=== PATIENT | male | born 1940 | race Caucasian/White ===

== ENCOUNTER 2017-03-25 17:21 | Inpatient (IN) | payer OTHER, MEDICARE ==
[~2017-03-25] VITALS: Ht 175.3 cm; Wt 82.0 kg
[~2017-03-25 17:21] MED LIST: ALLO100 PO; CALC667T PO; CARV12.5 PO; CHOL1CAP6 PO; LISI10 PO; SENS60TA PO; SIMV40 PO; TYLE3 PO
[2017-03-25 17:27] VITALS: BP 190/84; PULSE 86; RESP 18; TEMP 98.1; O2SAT 97
[2017-03-25] MEDS ORDERED: NAPR250T4 PO (17:47)
[2017-03-25] MEDS ORDERED: CARV25TA PO (17:47)
[2017-03-25] MEDS ORDERED: CINA30 PO (17:47)
[2017-03-25] MEDS ORDERED: ALLO100T PO (17:47)
[2017-03-25] MEDS ORDERED: SODIUM CHLORIDE 0.9% FLUSH 10 ML FLUSH IVF PRN (18:15)
[2017-03-25 18:29] LABS: AUTOMATED NEUTROPHIL # 4.7 TH/MM3 (1.8-7.7); BASOPHIL # 0.1 TH/MM3 (0-0.2); BASOPHIL % 0.8 % (0.0-2.0); EOSINOPHIL # 0.2 TH/MM3 (0-0.4); EOSINOPHIL % 2.6 % (0.0-4.0); HEMATOCRIT 31.5 % (39.0-51.0); HEMOGLOBIN 10.5 GM/DL (13.0-17.0); LYMPH % 11.5 % (9.0-44.0); LYMPHOCYTE # 0.7 TH/MM3 (1.0-4.8); MEAN CELL VOLUME 103.2 FL (80.0-100.0); MEAN CORPUSCULAR HEMOGLOBIN 34.5 PG (27.0-34.0); MEAN CORPUSCULAR HGB CONC 33.4 % (32.0-36.0); MEAN PLATELET VOLUME 10.6 FL (7.0-11.0); MONO % 12.4 % (0.0-8.0); MONOCYTE # 0.8 TH/MM3 (0-0.9); NEUT % 72.7 % (16.0-70.0); PLATELET COUNT 120 TH/MM3 (150-450); RED BLOOD COUNT 3.05 MIL/MM3 (4.50-5.90); RED CELL DISTRIBUTION WIDTH 14.5 % (11.6-17.2); WHITE BLOOD COUNT 6.5 TH/MM3 (4.0-11.0)
[2017-03-25 18:38] LABS: INTERNATIONAL NORMALIZED RATIO 1.3 RATIO; PROTHROMBIN TIME - PATIENT 12.9 SEC (9.8-11.6)
--- NOTE | 2017-03-25 18:43 | PD ---
HPI Chief Complaint: General Weakness Time Seen by Provider: 17:43 Travel History International Travel<30 days: No Contact w/Intl Traveler<30days: No Traveled to known affect area: No History of Present Illness HPI 76-year-old male patient presents emergency department for evaluation of weakness and swelling in his bilateral lower extremities 4 days. He is a dialysis patient that receives dialysis Wednesday, and Wednesday. Patient states he almost fell approximately 4 times today due to weakness in his legs. His son caught him he did not actually fall. Patient has pitting edema in his bilateral lower extremities 4 days. Patient denies any shortness of breath, cough, fevers, chills, malaise, chest pain. Patient denies any nausea, vomiting, diarrhea. Patient denies any injury or change in diet, fluid intake precipitating the bilateral edema and lower extremity weakness. PFSH Past Medical History Arthritis: Yes Heart Rhythm Problems: No Cancer: No Cardiovascular Problems: Yes High Cholesterol: Yes Chest Pain: No Congestive Heart Failure: No Diabetes: Yes (diet controlled) Patient Takes Glucophage: No Dialysis: Yes (t, th, sat) Endocrine: Yes Gout: Yes Genitourinary: Yes Hypertension: Yes Immune Disorder: No Implanted Vascular Access Dvce: Yes Kidney Stones: No Musculoskeletal: Yes Neurologic: No Psychiatric: No Reproductive: No Respiratory: Yes Renal Failure: Yes (d/t polycystic kidney disease) Thyroid Disease: No Tetanus Vaccination: < 5 Years Influenza Vaccination: Yes Past Surgical History Abdominal Surgery: No AICD: No Arteriovenous Shunt: Yes (AV FISTULA) Cardiac Surgery: No Ear Surgery: No Endocrine Surgery: No Eye Surgery: No Genitourinary Surgery: No Gynecologic Surgery: No Insulin Pump: No Joint Replacement: No Oral Surgery: No Pacemaker: No Thoracic Surgery: No Other Surgery: Yes (PILONIDIAL CYST, FISTULA FOR DIALYSIS L WRIST) Social History Alcohol Use: No Tobacco Use: No Substance Use: No Allergies-Medications (Allergen,Severity, Reaction): Coded Allergies: No Known Allergies (Verified Allergy, Unknown, 03/25/17) Reported Meds & Prescriptions Reported Meds & Active Scripts Active Reported Carvedilol 25 Mg Tab 25 Mg PO BID Allopurinol 100 Mg Tab 100 Mg PO DAILY Sensipar (Cinacalcet) 30 Mg Tab 30 Mg PO DAILY Naproxen 250 Mg Tab 250 Mg PO BID Review of Systems Except as stated in HPI: all other systems reviewed are Neg Physical Exam Narrative GENERAL: Well-nourished, well-developed 76-year-old male patient in no acute distress. Nontoxic appearing. SKIN: Focused skin assessment cool and pale. HEAD: Atraumatic. Normocephalic. EYES: Pupils equal and round. No scleral icterus. No injection or drainage. ENT: No nasal bleeding or discharge. Mucous membranes pink and moist. NECK: Trachea midline. No JVD. CARDIOVASCULAR: Regular rate and rhythm. Systolic murmur appreciated. RESPIRATORY: No accessory muscle use. Clear to auscultation. Breath sounds equal bilaterally. GASTROINTESTINAL: Abdomen soft, non-tender, nondistended. Hepatic and splenic margins not palpable. MUSCULOSKELETAL: No obvious deformities. No clubbing. No cyanosis. Pitting edema noted to bilateral lower extremities. Left leg +3 pitting edema. Right leg +2 pitting edema. Pedal pulses +2. NEUROLOGICAL: Awake and alert. No obvious cranial nerve deficits. Motor grossly within normal limits. Normal speech. PSYCHIATRIC: Appropriate mood and affect; insight and judgment normal. Data Data Last Documented VS Vital Signs Date Time Temp Pulse Resp B/P (MAP) Pulse Ox O2 Delivery O2 Flow Rate FiO2 03/25/17 17:35 80 18 96 Room Air 03/25/17 17:27 98.1 190/84 (119) Orders Orders Electrocardiogram (03/25/17 18:10) Complete Blood Count With Diff (03/25/17 18:10) Comprehensive Metabolic Panel (03/25/17 18:10) Magnesium (Mg) (03/25/17 18:10) Ckmb (Isoenzyme) Profile (03/25/17 18:10) Troponin I (03/25/17 18:10) Act Partial Throm Time (Ptt) (03/25/17 18:10) Prothrombin Time / Inr (Pt) (03/25/17 18:10) Urinalysis - C+S If Indicated (03/25/17 18:10) Chest, Single Ap (03/25/17 18:10) Ecg Monitoring (03/25/17 18:10) Iv Access Insert/Monitor (03/25/17 18:10) Oximetry (03/25/17 18:10) Sodium Chloride 0.9% Flush (Ns Flush) (03/25/17 18:15) Us Leg Venous Doppler Bilat (03/25/17 18:10) B-Type Natriuretic Peptide (03/25/17 19:26) Furosemide Inj (Lasix Inj) (03/25/17 22:15) Place In Observation (03/25/17 ) Vital Signs (Adult) Q4H (03/25/17 22:35) Activity Oob With Assistance (03/25/17 22:35) Diet Heart Healthy (03/26/17 Breakfast) Sodium Chloride 0.9% Flush (Ns Flush) (03/25/17 22:45) Sodium Chloride 0.9% Flush (Ns Flush) (03/26/17 09:00) Ondansetron Inj (Zofran Inj) (03/25/17 22:45) Comprehensive Metabolic Panel (03/26/17 06:00) Complete Blood Count With Diff (03/26/17 06:00) Pt Request For Service (03/25/17 22:35) Case Management Consult (03/25/17 22:35) Heparin Inj (Heparin Inj) (03/26/17 09:00) Acetaminophen (Tylenol) (03/25/17 22:45) Acetamin-Hydrocod 325-5 Mg ([place] 5-325 (03/25/17 22:45) Acetamin-Hydrocod 325-10 Mg ([place] 10-32 (03/25/17 22:45) Docusate Sodium-Senna (Danielle-Colace) (03/26/17 09:00) Magnesium Hydroxide Liq (Milk Of Magnesi (03/25/17 22:45) Sennosides (Senokot) (03/25/17 22:45) Bisacodyl Supp (Dulcolax Supp) (03/25/17 22:45) Lactulose Liq (Lactulose Liq) (03/25/17 22:45) Allopurinol (Zyloprim) (03/26/17 09:00) Carvedilol (Coreg) (03/26/17 09:00) Cinacalcet (Sensipar) (03/26/17 09:00) Consult Nephrology (03/25/17 ) Admit Order (Ed Use Only) (03/25/17 22:38) Labs Laboratory Tests Test 03/25/17 17:45 03/25/17 22:07 White Blood Count 6.5 TH/MM3 Red Blood Count 3.05 MIL/MM3 Hemoglobin 10.5 GM/DL Hematocrit 31.5 % Mean Corpuscular Volume 103.2 FL Mean Corpuscular Hemoglobin 34.5 PG Mean Corpuscular Hemoglobin Concent 33.4 % Red Cell Distribution Width 14.5 % Platelet Count 120 TH/MM3 Mean Platelet Volume 10.6 FL Neutrophils (%) (Auto) 72.7 % Lymphocytes (%) (Auto) 11.5 % Monocytes (%) (Auto) 12.4 % Eosinophils (%) (Auto) 2.6 % Basophils (%) (Auto) 0.8 % Neutrophils # (Auto) 4.7 TH/MM3 Lymphocytes # (Auto) 0.7 TH/MM3 Monocytes # (Auto) 0.8 TH/MM3 Eosinophils # (Auto) 0.2 TH/MM3 Basophils # (Auto) 0.1 TH/MM3 CBC Comment DIFF FINAL Differential Comment Prothrombin Time 12.9 SEC Prothromb Time International Ratio 1.3 RATIO Activated Partial Thromboplast Time 27.3 SEC Blood Urea Nitrogen 30 MG/DL Creatinine 6.10 MG/DL Random Glucose 98 MG/DL Total Protein 6.9 GM/DL Albumin 2.7 GM/DL Calcium Level 8.9 MG/DL Magnesium Level 2.1 MG/DL Alkaline Phosphatase 90 U/L Aspartate Amino Transf (AST/SGOT) 17 U/L Alanine Aminotransferase (ALT/SGPT) 14 U/L Total Bilirubin 0.9 MG/DL Sodium Level 140 MEQ/L Potassium Level 4.7 MEQ/L Chloride Level 106 MEQ/L Carbon Dioxide Level 28.1 MEQ/L Anion Gap 6 MEQ/L Estimat Glomerular Filtration Rate 9 ML/MIN Total Creatine Kinase 50 U/L Troponin I 0.04 NG/ML B-Type Natriuretic Peptide 1190 PG/ML Urine Color YELLOW Urine Turbidity HAZY Urine pH 8.5 Urine Specific [place] 1.009 Urine Protein 100 mg/dL Urine Glucose (UA) 150 mg/dL Urine Ketones NEG mg/dL Urine Occult Blood TRACE Urine Nitrite NEG Urine Bilirubin NEG Urine Urobilinogen LESS THAN 2.0 MG/DL Urine Leukocyte Esterase NEG Urine WBC 3 /hpf Urine Squamous Epithelial Cells <1 /hpf Urine Transitional Epithelial Cells <1 /hpf Urine Bacteria RARE /hpf Microscopic Urinalysis Comment CULT NOT INDICATED MDM Medical Decision Making Medical Screen Exam Complete: Yes Emergency Medical Condition: Yes Differential Diagnosis Differential diagnoses include but not limited to fluid overload, congestive heart failure, PVD, DVT Narrative Course Patient placed on monitor, IV obtained, blood work sent to the lab, CBC, CMP, magnesium, troponin, CK MP, PT/INR, UA, BMP ordered and pending. Bilateral lower extremity ultrasound ordered and pending. Chest x-ray ordered and pending. CBC shows chronic anemia, no acute abnormality. CMP shows no acute abnormality outside of hypoalbuminemia at 2.7 and elevated BNP at 1190. PT/INR shows mildly elevated PT at 12.9. Chest x-ray shows patchy bilateral lower lung infiltrate and possible left pleural effusion. Lateral lower extremity ultrasound is negative for any DVT. Patient is admitted to the hospital for observation of congestive heart failure, fluid overload and bilateral patchy pleural infiltrates. Dr. Pierre accepts admission. Diagnosis Primary Impression: CHF (congestive heart failure) Qualified Codes: I50.9 - Heart failure, unspecified Additional Impression: Pitting edema Admitting Information Admitting Physician Requests: Observation Kelli Figueroa Mar 25, 2017 18:42
[2017-03-25 18:54] LABS: ALT (GPT) 14 U/L (12-78)
[2017-03-25 18:58] LABS: ALBUMIN 2.7 GM/DL (3.4-5.0); ALKALINE PHOSPHATASE 90 U/L (45-117); AST (GOT) 17 U/L (15-37); BICARBONATE 28.1 MEQ/L (21.0-32.0); BLOOD UREA NITROGEN 30 MG/DL (7-18); CALCIUM 8.9 MG/DL (8.5-10.1); CHLORIDE 106 MEQ/L (98-107); GLOMERULAR FILTRATION RATE 9 ML/MIN (>89); GLUCOSE,RANDOM 98 MG/DL (74-106); MAGNESIUM 2.1 MG/DL (1.5-2.5); SODIUM (NA) 140 MEQ/L (136-145); TOTAL BILIRUBIN ADULT 0.9 MG/DL (0.2-1.0); TOTAL PROTEIN 6.9 GM/DL (6.4-8.2); TROPONIN I 0.04 NG/ML (0.02-0.05)
--- NOTE | 2017-03-25 18:58 | RADRPT ---
EXAM DATE/TIME: 03/25/2017 18:21 [facility] COMPARISON: No previous studies available for comparison. INDICATIONS : Bilateral leg swelling. MEDICAL HISTORY : Hypercholesterolemia. Hypertension. Arthritis. Hearing loss. Polycystic kidney disease. Dialysis. Gou t. Diabetes. SURGICAL HISTORY : Left AV fistula. Pilonidial cyst removal. ENCOUNTER: Initial ACUITY: 1 day PAIN SCORE: 0/10 LOCATION: Bilateral legs. TECHNIQUE: Venous ultrasound of the left and right leg was performed from the inguinal ligament to the proximal calf. Real-time, color Doppler and spectral tracing, compression and augmentation techniques were us ed. FINDINGS: RIGHT LEG: There is normal compressibility of the deep venous system from the inguinal region to the proximal ca lf. No echogenic clot is seen in the lumen of the common femoral, femoral, popliteal, and posterior tibial veins. There is a normal response of the venous system to proximal and distal augmentation an d respiration. LEFT LEG: There is normal compressibility of the deep venous system from the inguinal region to the proximal ca lf. No echogenic clot is seen in the lumen of the common femoral, femoral, popliteal, and posterior tibial veins. There is a normal response of the venous system to proximal and distal augmentation an d respiration. CONCLUSION: 1. Negative for deep venous thrombosis bilateral lower extremities. Dillan Leonard MD on March 25, 2017 at 18:55 Board Certified Radiologist. This report was verified electronically.
--- NOTE | 2017-03-25 19:43 | RADRPT ---
EXAM DATE/TIME: 03/25/2017 19:18 [facility] COMPARISON: CHEST SINGLE AP, April 03, 2014, 16:20. INDICATIONS : Syncope MEDICAL HISTORY : Hypercholesterolemia. Hypertension. Arthritis. Hearing loss. Polycystic kidney disease. Dialysis. Gou t. Diabetes Type 2. SURGICAL HISTORY : Left AV fistula. Pilonidial cyst removal. ENCOUNTER: Initial ACUITY: 4 - 6 days PAIN SCORE: 0/10 LOCATION: Bilateral chest FINDINGS: There are patchy partially consolidated infiltrates in the medial lower lungs bilaterally with loss o f delineation of the midportion of the medial left hemidiaphragm. Possible blunting of the left cost ophrenic angle. The heart is mildly enlarged and there is marked tortuosity descending thoracic aort a, stable from prior. The upper lungs are clear. No evidence of pneumothorax. CONCLUSION: Patchy bilateral lower lung infiltrates and possible left pleural effusion. Dillan Leonard MD on March 25, 2017 at 19:40 Board Certified Radiologist. This report was verified electronically.
[2017-03-25] MEDS ORDERED: FUROSEMIDE 20 MG/2 ML VIAL IV PUSH ONE (22:15)
[2017-03-25 22:19] LABS: BACTERIA, URINE RARE /hpf; BILIRUBIN, URINE NEG (NEG); BLOOD, URINE TRACE (NEG); GLUCOSE,URINE 150 mg/dL (NEG); KETONE, URINE NEG (NEG); NITRITE,URINE NEG (NEG); PH, URINE 8.5 (5.0-8.5); SQUAMOUS EPITHELIAL CELL URINE <1 /hpf (0-5); TRANSITIONAL EPI CELLS, URINE <1 /hpf; URINE COLOR YELLOW (YELLW/STRAW); URINE LEUKOCYTE ESTERASE NEG (NEG)
--- NOTE | 2017-03-25 22:37 | HHI.HP ---
[facility] Admission Diagnosis Diagnoses: (1) Recurrent falls Diagnosis: Principal (2) ESRD (end stage renal disease) on dialysis Diagnosis: Principal (3) Lower extremity edema Diagnosis: Principal (4) HTN (hypertension) Diagnosis: Principal Travel History International Travel<30 Days: No Contact w/Intl Traveler <30 Da: No Traveled to Known Affected Are: No History of Present Illness This is a 76-year-old male with a PMH of HTN, Diet Controlled DM, Hyperlipidemia and ESRD on HD / who presented to the ER secondary to lower extremity edema, weakness and recurrent falls x4-5 days. Per pt he's had progressive lower extremity swelling, states swelling is making him weak and legs "give out". Has had multiple falls however no injuries as Son has been able to catch him. Denies LOC or head trauma. Underwent dialysis today w/ no complications. Denies fever, chills, chest pain or sick contacts. On arrival, BP 190/84, HR 86, O2 sat 97% on RA, Afebrile. CBC essentially at baseline. Creatinine was 6.10, produces 7.11 on 12/22/14. BNP 1190. Troponin 0.04. INR 1.3. CXR with patchy bilateral lung infiltrates and possible left effusion. LE Doppler negative for DVT. S/p Lasix in ER. Review of Systems Except as stated in HPI: all other systems reviewed are Neg ROS: 14 point review of systems otherwise negative. Past Family Social History Past Medical History PMH: HTN, Diet Controlled DM, Hyperlipidemia and ESRD on HD / Past Surgical History PAST SURGICAL HISTORY: AV Fistula, Pilonidal Cyst Allergies: Coded Allergies: No Known Allergies (Verified Allergy, Unknown, 03/25/17) Family History PAST FAMILY HISTORY: Reviewed. No h/o DM or CAD Social History PAST SOCIAL HISTORY: Negative for alcohol, tobacco or drugs. Physical Exam Vital Signs Vital Signs Date Time Temp Pulse Resp B/P (MAP) Pulse Ox O2 Delivery O2 Flow Rate FiO2 03/25/17 17:35 80 18 96 Room Air 03/25/17 17:27 98.1 86 18 190/84 (922) 18 Physical Exam PE: GENERAL: Very pleasant elderly white male in no acute distress sitting in chair at bedside. HEENT: PERRLA, EOMI. No scleral icterus or conjunctival pallor. No lid lag or facial droop. CARDIOVASCULAR: Regular rate and rhythm. No obvious murmurs to auscultation. No chest tenderness to palpation. RESPIRATORY: No obvious rhonchi or wheezing. Clear to auscultation. Breath sounds equal bilaterally. GASTROINTESTINAL: Abdomen soft, non-tender, nondistended. BS normal. MUSCULOSKELETAL: Extremities without clubbing, cyanosis. +2 pitting edema bilaterally, left > right. No obvious deformities. NEUROLOGICAL: Awake, alert and oriented x4. No focal neurologic deficits. Moving both upper and lower extremities spontaneously. Laboratory Laboratory Tests Test 03/25/17 17:45 03/25/17 22:07 White Blood Count 6.5 Red Blood Count 3.05 Hemoglobin 10.5 Hematocrit 31.5 Mean Corpuscular Volume 103.2 Mean Corpuscular Hemoglobin 34.5 Mean Corpuscular Hemoglobin Concent 33.4 Red Cell Distribution Width 14.5 Platelet Count 120 Mean Platelet Volume 10.6 Neutrophils (%) (Auto) 72.7 Lymphocytes (%) (Auto) 11.5 Monocytes (%) (Auto) 12.4 Eosinophils (%) (Auto) 2.6 Basophils (%) (Auto) 0.8 Neutrophils # (Auto) 4.7 Lymphocytes # (Auto) 0.7 Monocytes # (Auto) 0.8 Eosinophils # (Auto) 0.2 Basophils # (Auto) 0.1 CBC Comment DIFF FINAL Differential Comment Prothrombin Time 12.9 Prothromb Time International Ratio 1.3 Activated Partial Thromboplast Time 27.3 Blood Urea Nitrogen 30 Creatinine 6.10 Random Glucose 98 Total Protein 6.9 Albumin 2.7 Calcium Level 8.9 Magnesium Level 2.1 Alkaline Phosphatase 90 Aspartate Amino Transf (AST/SGOT) 17 Alanine Aminotransferase (ALT/SGPT) 14 Total Bilirubin 0.9 Sodium Level 140 Potassium Level 4.7 Chloride Level 106 Carbon Dioxide Level 28.1 Anion Gap 6 Estimat Glomerular Filtration Rate 9 Total Creatine Kinase 50 Troponin I 0.04 B-Type Natriuretic Peptide 1190 Urine Color YELLOW Urine Turbidity HAZY Urine pH 8.5 Urine Specific [place] 1.009 Urine Protein 100 Urine Glucose (UA) 150 Urine Ketones NEG Urine Occult Blood TRACE Urine Nitrite NEG Urine Bilirubin NEG Urine Urobilinogen LESS THAN 2.0 Urine Leukocyte Esterase NEG Urine WBC 3 Urine Squamous Epithelial Cells <1 Urine Transitional Epithelial Cells <1 Urine Bacteria RARE Microscopic Urinalysis Comment CULT NOT INDICATED Result Diagram: 03/25/17174403/25/171744 Caprini VTE Risk Assessment Caprini VTE Risk Assessment: Mod/High Risk (score >= 2) Caprini Risk Assessment Model Point Value = 1 Point Value = 2 Point Value = 3 Point Value = 5 Age 41-60 Minor surgery BMI > 25 kg/m2 Swollen legs Varicose veins or History of unexplained or recurrent spontaneous Oral contraceptives or hormone replacement Sepsis (< 1 month) Serious lung disease, including pneumonia (< 1 month) Abnormal pulmonary function Acute myocardial infarction Congestive heart failure (< 1 month) History of inflammatory bowel disease Medical patient at bed rest Age 61-74 Arthroscopic surgery Major open surgery (> 45 min) Laparoscopic surgery (> 45 min) Malignancy Confined to bed (> 72 hours) Immobilizing plaster cast Central venous access Age >= 75 History of VTE Family history of VTE Factor V Leiden Prothrombin [id number] Lupus anticoagulant Anticardiolipin antibodies Elevated serum homocysteine Heparin-induced thrombocytopenia Other congenital or acquired thrombophilia Stroke (< 1 month) Elective arthroplasty Hip, pelvis, or leg fracture Acute spinal cord injury (< 1 month) Prophylaxis Regimen Total Risk Factor Score Risk Level Prophylaxis Regimen 0-1 Low Early ambulation 2 Moderate Order ONE of the following: *Sequential Compression Device (SCD) *Heparin 5000 units SQ BID 3-4 Higher Order ONE of the following medications: *Heparin 5000 units SQ TID *Enoxaparin/Lovenox 40 mg SQ daily (WT < 150 kg, CrCl > 30 mL/min) *Enoxaparin/Lovenox 30 mg SQ daily (WT < 150 kg, CrCl > 10-29 mL/min) *Enoxaparin/Lovenox 30 mg SQ BID (WT < 150 kg, CrCl > 30 mL/min) AND/OR *Sequential Compression Device (SCD) 5 or more Highest Order ONE of the following medications: *Heparin 5000 units SQ TID (Preferred with Epidurals) *Enoxaparin/Lovenox 40 mg SQ daily (WT < 150 kg, CrCl > 30 mL/min) *Enoxaparin/Lovenox 30 mg SQ daily (WT < 150 kg, CrCl > 10-29 mL/min) *Enoxaparin/Lovenox 30 mg SQ BID (WT < 150 kg, CrCl > 30 mL/min) AND *Sequential Compression Device (SCD) Assessment and Plan Problem List: (1) Recurrent falls ICD Code: R29.6 - Repeated falls (2) ESRD (end stage renal disease) on dialysis ICD Code: N18.6 - End stage renal disease; Z99.2 - Dependence on renal dialysis (3) Lower extremity edema ICD Code: R60.0 - Localized edema (4) HTN (hypertension) ICD Code: I10 - HTN (hypertension) Status: Acute Assessment and Plan A/P: 1. Recurrent Falls: reports multiple near falls after legs "give out" due to progressive edema, no LOC or head trauma, no injuries as Son able to catch him each time. PT for eval/tx. 2. ESRD on HD: T//Wed, HD on urs w/ no complications, +fluid overload on exam, will consult Nephrology for further eval 3. Lower Extremity Edema: progressive lower extremity edema x4-5 days, left > right, LE Doppler negative for DVT, images reviewed by me. BNP 1130. CXR w/ patchy infiltrate, likely small effusion, images reviewed by me. S/p Lasix in ER. Check Echo to eval for heart failure. Monitor I/O. HD for fluid removal as needed. 4. HTN: BP 190's on arrival, currently 170's. Monitor BP. Resume home medications. 5. DVT Prophylaxis: Heparin 6. Social work for d/c planning as needed. 7. Case discussed w/ ER physician at length. Elli Pierre MD Mar 25, 2017 22:37
[2017-03-25] MEDS ORDERED: SENNOSIDES 8.6 MG TAB PO PRN (22:45)
[2017-03-25] MEDS ORDERED: MAGNESIUM HYDROXIDE SUSP 30 ML CUP PO PRN (22:45)
[2017-03-25] MEDS ORDERED: BISACODYL 10 MG SUPP RECTAL PRN (22:45)
[2017-03-25] MEDS ORDERED: ACETAMINOPHEN 325 MG TAB PO PRN (22:45)
[2017-03-25] MEDS ORDERED: SODIUM CHLORIDE 0.9% FLUSH 10 ML FLUSH IV FLUSH PRN (22:45)
[2017-03-25] MEDS ORDERED: ACETAMINOPHEN/HYDROcodone 325 MG/5 MG TAB PO PRN (22:45)
[2017-03-25] MEDS ORDERED: LACTULOSE SYRUP 20 GM/30 ML CUP PO PRN (22:45)
[2017-03-25] MEDS ORDERED: ONDANSETRON HCL 4 MG/2 ML VIAL IVP PRN (22:45)
[2017-03-25 23:07] VITALS: BP 177/75
--- NOTE | 2017-03-25 23:38 | EKG ---
Date Performed: 03/25/2017 Time Performed: 18:47:37 PTAGE: 76 years EKG: Sinus rhythm WITH MARKED SINUS ARRHYTHMIA MARKED LEFT AXIS DEVIATION LEFT VENTRICULAR HYPERTROPHY AND ST-T CHANGE ABNORMAL ECG PREVIOUS TRACING : 12/22/2014 17.56 Compared to the previous tracing, ST/T wave changes in the high lateral which may be due to LVH, are new DOCTOR: Jeffrey Ortiz Interpretating Date/Time 03/25/2017 23:36:43
[2017-03-26] VITALS (11 sets, daily range): BP systolic 163–201; BP diastolic 72–93; PULSE 63–111; RESP 18–24; TEMP 97.9–98.7; O2SAT 81–99
[2017-03-26] MEDS ORDERED: METOPROLOL TARTRATE 25 MG TAB PO ONE (01:45)
[2017-03-26] MEDS ORDERED: NIFEdipine 30 MG SUSTAINED RELEASE TAB PO ONE (01:45)
[2017-03-26] MEDS ORDERED: RESP: ALBUTEROL 2.5 MG/IPRATROPIUM 0.5 MG NEB (PRN) NEB (01:45)
[2017-03-26 08:10] LABS: ALKALINE PHOSPHATASE 87 U/L (45-117); ALT (GPT) 14 U/L (12-78); AST (GOT) 14 U/L (15-37); BICARBONATE 26.2 MEQ/L (21.0-32.0); BLOOD UREA NITROGEN 67 MG/DL (7-18); CALCIUM 9.8 MG/DL (8.5-10.1); CHLORIDE 107 MEQ/L (98-107); CREATININE 6.87 MG/DL (0.60-1.30); GLOMERULAR FILTRATION RATE 8 ML/MIN (>89); GLUCOSE,RANDOM 78 MG/DL (74-106); SODIUM (NA) 140 MEQ/L (136-145); TOTAL BILIRUBIN ADULT 1.1 MG/DL (0.2-1.0); TOTAL PROTEIN 7.1 GM/DL (6.4-8.2)
--- NOTE | 2017-03-26 08:53 | HHI.PR ---
Subjective Remarks Follow up on patient with increased bilateral lower extremity edema. Patient seen and examined. He is awake and alert. He is upset stating he doesn't know why he is in the hospital. When asked why he came to the hospital he reports increased leg weakness and swelling. States he's had increased swelling for the past 4-5 days. He is on hemodialysis scheduled Wednesday states he is compliant with his dialysis treatments. He reports making a few ounces of urine a day on his own. He denies any complaints of chest pain. He does report some shortness of breath when laying flat. He denies any nausea, vomiting or abdominal pain. He reports diarrhea following HD treatments and has had 3 episodes this am. Denies any recent antibiotic use. He denies any fever or chills. States his leg swelling has improved since his admission. He is eager to go home because he is having a roof put on his house. Objective Vitals Vital Signs Date Time Temp Pulse Resp B/P (MAP) Pulse Ox O2 Delivery O2 Flow Rate FiO2 03/26/17 08:30 98.2 84 20 195/80 (118) 96 03/26/17 04:48 70 167/78 (107) 95 03/26/17 03:38 98.3 72 18 172/81 (111) 99 03/26/17 01:39 97 Nasal Cannula 2.00 03/26/17 01:38 111 24 81 03/26/17 01:13 75 185/86 (119) 03/26/17 00:28 98.3 74 21 201/93 (129) 95 03/26/17 00:20 03/25/17 23:07 177/75 (109) 03/25/17 17:35 80 18 96 Room Air 03/25/17 17:27 98.1 86 18 190/84 (119) 97 Result Diagram: 03/25/17 1745 03/26/17 0645 Imaging Last Impressions Lower Extremity Ultrasound 03/25/171809 Signed Impressions: Service Date/Time: March 18:21 - CONCLUSION: 1. Negative for deep venous thrombosis bilateral lower extremities. Dillan Leonard MD Chest X-Ray 03/25/171809 Signed Impressions: Service Date/Time: March 19:18 - CONCLUSION: Patchy bilateral lower lung infiltrates and possible left pleural effusion. Dillan Leonard MD Objective Remarks GENERAL: Well-nourished, well-developed patient in NAD. Awake and alert. Sitting up in bed on 2LNC, satting 96%. SKIN: Warm and dry. No rash. HEAD: Normocephalic. Atraumatic. EYES: EOMI. No scleral icterus. No injection or drainage. ENT: No nasal bleeding or discharge. Mucous membranes pink and moist. Ill fitting upper dentures, no lower dentures on. NECK: Trachea midline. CARDIOVASCULAR: Regular rate and rhythm. S1, S2 noted. (+)Murmur present. RESPIRATORY: Nonlabored. Clear to auscultation. Breath sounds equal bilaterally. GASTROINTESTINAL: Abdomen soft, non-tender, nondistended. Normoactive bowel sounds x4. MUSCULOSKELETAL: No obvious deformities. Extremities without clubbing or cyanosis. Trace to 1+ BLE edema. NEUROLOGICAL: Awake and alert. Able to move all extremities spontaneously. No focal neurologic finding appreciated. Normal speech. PSYCHIATRIC: Appropriate mood and affect; insight and judgment normal. Medications and IVs Current Medications Medications (Trade) Dose Ordered Sig/Jamal Route Start Time Stop Time Status Last Admin (NS Flush) 2 ml UNSCH PRN IV FLUSH 03/25/17 22:45 (NS Flush) 2 ml BID IV FLUSH 03/26/17 09:00 (Zofran Inj) 4 mg Q6H PRN IVP 03/25/17 22:45 (Heparin Inj) 5,000 units Q12H SQ 03/26/17 09:00 (Tylenol) 650 mg Q6H PRN PO 03/25/17 22:45 ([place] 5-325 Mg) 1 tab Q4H PRN PO 03/25/17 22:45 ([place] 10-325 Mg) 1 tab Q4H PRN PO 03/25/17 22:45 (Danielle-Colace) 1 tab BID PO 03/26/17 09:00 (Milk Of Magnesia Liq) 30 ml Q12H PRN PO 03/25/17 22:45 (Senokot) 17.2 mg Q12H PRN PO 03/25/17 22:45 (Dulcolax Supp) 10 mg DAILY PRN RECTAL 03/25/17 22:45 (Lactulose Liq) 30 ml DAILY PRN PO 03/25/17 22:45 (Zyloprim) 100 mg DAILY PO 03/26/17 09:00 (Coreg) 25 mg BID PO 03/26/17 09:00 (Sensipar) 30 mg DAILY PO 03/26/17 09:00 (Duoneb Neb) 1 ampule Q4HR NEB PRN NEB 03/26/17 01:45 A/P Problem List: (1) Recurrent falls ICD Code: R29.6 - Repeated falls (2) ESRD (end stage renal disease) on dialysis ICD Code: N18.6 - End stage renal disease; Z99.2 - Dependence on renal dialysis (3) Lower extremity edema ICD Code: R60.0 - Localized edema (4) HTN (hypertension) ICD Code: I10 - HTN (hypertension) Status: Acute Assessment and Plan 1. Recurrent Falls: reports multiple near falls after legs "give out" due to progressive edema, no LOC or head trauma, no injuries as son able to catch him each time. PT for eval/tx. 2. ESRD on HD: T//Sat, HD on urs w/ no complications, +fluid overload on exam, improving. Cr and K level trending up. Phos level ordered. Consult Nephrology for further eval, appreciate recommendations. 3. Lower Extremity Edema: progressive lower extremity edema x4-5 days, left > right, LE Doppler negative for DVT. BNP 1130. CXR w/ patchy infiltrate, likely small effusion, images reviewed by me. S/p Lasix in ER. Check Echo to eval for heart failure. Monitor I/O. HD for fluid removal as needed. Edema improved today. 4. HTN: BP 190's on arrival, currently 170's. Monitor BP. Continue on Coreg 25mg BID. BP 195/80. Start on Hydralazine 10mg TID. 5. Anemia: Suspect anemia of chronic disease. Chronic, stable. Continue to monitor. 6. Macrocytosis: Obtain B12 and folate level. 7. DVT Prophylaxis: Heparin 8. Social work for d/c planning as needed. Discussed with patient, nursing staff and Ene Estes Mar 26, 2017 08:53
[2017-03-26] MEDS: SODIUM CHLORIDE 0.9% FLUSH 10 ML FLUSH IV FLUSH SCH ×2 (09:00→22:37)
[2017-03-26] MEDS ORDERED: LOPERAMIDE HCL SOLN 2 MG/10 ML UDC PO ONE (09:00)
[2017-03-26] MEDS: DOCUSATE SODIUM 50 MG/SENNA 8.6 MG TAB PO SCH ×2 (09:00→22:37)
[2017-03-26] MEDS: CINACALCET HYDROCHLORIDE 30 MG TAB PO SCH (09:12)
[2017-03-26] MEDS: HEPARIN SODIUM - SQ 10,000 UNITS/ML VIAL SQ SCH ×2 (09:12→22:37)
[2017-03-26] MEDS: ALLOPURINOL 100 MG TAB PO SCH (09:12)
[2017-03-26] MEDS: CARVEDILOL 12.5 MG TAB PO SCH ×2 (09:12→22:37)
[2017-03-26 12:09] LABS: MAGNESIUM 2.4 MG/DL (1.5-2.5); PHOSPHORUS 3.2 MG/DL (2.5-4.9)
[2017-03-26 12:10] LABS: AUTOMATED NEUTROPHIL # 3.5 TH/MM3 (1.8-7.7); BASOPHIL % 0.6 % (0.0-2.0); EOSINOPHIL # 0.1 TH/MM3 (0-0.4); EOSINOPHIL % 2.1 % (0.0-4.0); HEMATOCRIT 28.1 % (39.0-51.0); HEMOGLOBIN 9.6 GM/DL (13.0-17.0); LYMPH % 17.9 % (9.0-44.0); LYMPHOCYTE # 0.9 TH/MM3 (1.0-4.8); MEAN CELL VOLUME 102.9 FL (80.0-100.0); MONO % 10.5 % (0.0-8.0); MONOCYTE # 0.5 TH/MM3 (0-0.9); NEUT % 68.9 % (16.0-70.0); PLATELET COUNT 118 TH/MM3 (150-450); RED BLOOD COUNT 2.74 MIL/MM3 (4.50-5.90); RED CELL DISTRIBUTION WIDTH 14.3 % (11.6-17.2); WHITE BLOOD COUNT 5.1 TH/MM3 (4.0-11.0)
[2017-03-26] MEDS ORDERED: SODIUM CHLOR 0.9% 1000 ML INJ 1,000 ML IV PRN (13:13)
[2017-03-26] MEDS ORDERED: SODIUM CHLOR 0.9% 1000 ML INJ 1,000 ML OTHER PRN ×2 (13:13)
[2017-03-26] MEDS ORDERED: GELATIN 12 MM/7 MM FOAM TOP PRN (13:15)
[2017-03-26] MEDS ORDERED: GENTAMICIN SULFATE (DIALYSIS USE ONLY) 20 MG/2 ML VIAL OTHER PRN (13:15)
[2017-03-26] MEDS ORDERED: ACETAMINOPHEN 325 MG TAB PO PRN (13:15)
[2017-03-26] MEDS ORDERED: HEPARIN SODIUM - IV 10,000 UNITS/10 ML VIAL PRN (13:15)
[2017-03-26] MEDS ORDERED: HEPARIN SODIUM - IV 10,000 UNITS/10 ML VIAL IV FLUSH PRN (13:15)
[2017-03-26] MEDS ORDERED: NITROGLYCERIN 0.4 MG SL 25 TABS/BTL SL PRN (13:15)
[2017-03-26] MEDS ORDERED: ONDANSETRON HCL 4 MG/2 ML VIAL IV PUSH PRN (13:15)
[2017-03-26] MEDS ORDERED: SODIUM CHLORIDE 0.9% FLUSH 10 ML FLUSH IV FLUSH PRN (13:15)
[2017-03-26] MEDS ORDERED: diphenhydrAMINE HCL 25 MG CAP PO PRN (13:15)
[2017-03-26] MEDS ORDERED: MANNITOL 12.5 GM/50 ML VIAL IV PRN (13:15)
[2017-03-26] MEDS ORDERED: cloNIDine HCL 0.1 MG TAB PO PRN (13:15)
[2017-03-26 15:09] LABS: FOLATE 12.4 NG/ML (3.1-17.5)
--- NOTE | 2017-03-26 15:28 | ECHRPT ---
Indication: heart failure CONCLUSIONS Normal left ventricular size. Normal LV systolic function (EF 55%). [id number] mitral valve regurgitation. Severe aortic valve stenosis. Aortic valve area is 0.4 cm. AV mean gradient 56 mmHg. There is mild tricuspid valve regurgitation. BP: / HR: Rhythm: MEASUREMENTS (Male / Female) Normal Values Technical Quality:Fair 2D ECHO LV Diastolic Diameter PLAX 3.9 cm 4.2 - 5.9 / 3.9 - 5.3 cm LV Systolic Diameter PLAX 3.3 cm IVS Diastolic Thickness 2.4 cm 0.6 - 1.0 / 0.6 - 0.9 cm LVPW Diastolic Thickness 1.1 cm 0.6 - 1.0 / 0.6 - 0.9 cm LV Relative Wall Thickness 0.9 RV Internal Dim ED PLAX 3.1 cm M-MODE Aortic Root Diameter MM 3.3 cm LA Systolic Diameter MM 3.4 cm LA Ao Ratio MM 1.0 DOPPLER AV Peak Velocity 509.0 cm/s AV Peak Gradient 103.6 mmHg AV Mean Gradient 56.0 mmHg AV Velocity Time Integral 116.0 cm LVOT Peak Velocity 103.0 cm/s LVOT Peak Gradient 4.2 mmHg LVOT Velocity Time Integral 23.8 cm MV Peak Velocity 161.0 cm/s MV Peak Gradient 10.4 mmHg MV Mean Velocity 76.1 cm/s MV Mean Gradient 3.0 mmHg MV Area PHT 2.3 cm FINDINGS LEFT VENTRICLE Normal left ventricular size. The left ventricular systolic function is normal (EF 55%). RIGHT VENTRICLE Normal right ventricular size and systolic function. LEFT ATRIUM The left atrial size is normal. RIGHT ATRIUM The right atrial size is normal. ATRIAL SEPTUM Normal atrial septal thickness without atrial level shunting by limited color doppler interrogation. AORTA The aortic root and proximal ascending aorta are normal in size on limited imaging. MITRAL VALVE [id number] mitral valve regurgitation. The mitral valve area by Pressure Halftime Method is 2.3__ cm. AORTIC VALVE Severe aortic valve stenosis. Aortic valve area is .4__ cm. LVOT 2.2 AV mean 56 mmhg V Max 509 TRICUSPID VALVE Structurally normal tricuspid valve. There is mild tricuspid valve regurgitation. PULMONARY VALVE The pulmonary valve is not well visualized. VESSELS The inferior vena cava is normal in size. PERICARDIUM No pericardial effusion. Lakeisha Capellan MD, FACC (Electronically Signed) Final Date:26 March 2017 15:27
[2017-03-26] MEDS: hydrALAZINE HCL 10 MG TAB PO SCH ×2 (16:09→22:37)
--- NOTE | 2017-03-26 17:10 | MB ---
cc: EUNICE RODRIGEZ MD DATE OF CONSULTATION 03/26/17 REASON FOR CONSULTATION End-stage renal disease on hemodialysis. HISTORY OF PRESENT ILLNESS This is a 76-year-old male with past medical history of hypertension, hyperlipidemia, diabetes mellitus controlled on diet, history of end-stage renal disease on hemodialysis three times per week and chronic anemia who came to the hospital with complaint of swelling and weakness in the leg. I was called to see the patient for the management of dialysis. The patient has been on hemodialysis Wednesday, and Wednesday. He had dialysis done yesterday and he missed this week on Wednesday. The patient has increasing swelling of his legs and his blood pressure was on the lower side during dialysis and we have been trying to get more fluid out. Also he does cramp during dialysis which limits the amount of fluid which can be removed. He noticed more weakness in the leg for the last week to 10 days and has been falling at home. The patient lives with his son. He does not have any dizziness but he has been falling just because according to patient the leg is giving out, but he feels like he is doing much better now and he wants to go home. He denies any history of loss of consciousness and there is no apparent injury to his legs. According to him, the swelling is better than what it was. There is no shortness of breath. No nausea, vomiting. He is currently sitting in the chair in room air. PAST MEDICAL HISTORY 1. Hypertension, 2. Diabetes mellitus controlled on diet, 3. Hyperlipidemia, 4. Chronic anemia, 5. End-stage renal disease on hemodialysis. PAST SURGICAL HISTORY 1. AV fistula surgery, 2. Pilonidal cyst removal. REVIEW OF SYSTEMS The patient has generalized weakness, feeling tired. Denies any nausea or vomiting. No shortness of breath or chest pain. No abdominal pain. No history of diarrhea. He has this weakness in the leg which has been gradually getting worse for the last 7-10 days and has increased swelling of the legs. SOCIAL HISTORY The patient lives with his son. He has no history of smoking or alcoholism. FAMILY HISTORY Noncontributory. ALLERGIES NO KNOWN DRUG ALLERGIES. MEDICATIONS Currently 1. Carvedilol 25 mg b.i.d. 2. Allopurinol 100 mg once a day. 3. Sensipar 30 mg once a day 4. Danielle-Colace 1 tablet b.i.d. 5. Hydralazine 10 mg q. 8-hour. 6. Heparin 5000 units q.12 h. 7. Zofran as needed. 8. Tylenol as needed. 9. Burns as needed PHYSICAL EXAMINATION GENERAL: The patient is awake, alert and sitting in the chair not in acute distress. VITAL SIGNS: Last blood pressure 185-75 temperature 98.2, oxygen saturation 96-97% now on room air. HEENT: Pupils are mid constricted. Nonicteric sclerae, conjunctivae pale. NECK: Supple. JVD is not elevated. LUNGS: The patient has bilateral good air entry with occasional wheezing. HEART: S1, S2, regular rhythm. ABDOMEN: Distended, soft lax. There is no tenderness. EXTREMITIES: Bilateral 2+ edema. LABORATORY DATA WBC count is 5.1, hemoglobin 9.6, platelet count 118. Sodium 140. Potassium 5.1, chloride 107, bicarb 26.2, BUN 67, creatinine 6.8, phosphorus is 3.2. Calcium 9.8. Magnesium 2.4, AST is 14, ALT is 14, total protein 7.1 with Albumin of 3.0, INR is 1.3. Urinalysis showing protein of 100. IMAGING STUDIES The patient had chest x-ray done which shows that he has bilateral lower infiltrate, possible left pleural effusion. Ultrasound of the lower extremities done shows no deep vein thrombosis. ASSESSMENT/PLAN 1. End-stage renal disease on hemodialysis. 2. Swelling and weakness of the leg. 3. Hypoalbuminemia. 4. Hypertension 5. Anemia. 6. History of hyperlipidemia. The patient has weakness in the leg and also there is some swelling. The swelling is mainly a combination of low albumin and also being on dialysis. He needs to be compliant with his fluid intake and salt intake and we can try to remove more fluid during dialysis to help with the swelling. The patient did walk some today and he feels like he can go home, but I discussed with him and told him that he would feel better if he would go to a rehab for sometime. Blood pressure is on the higher side and he is on Carvedilol and hydralazine were started. I will follow the blood pressure as an outpatient and adjust hydralazine as needed. Thank you for the consultation. I will follow the patient while he is in the hospital. MD KELI Copeland/ /12:56 PM /4:36 PM
[2017-03-27 04:28] VITALS: BP 130/60; PULSE 70; RESP 18; TEMP 98.4; O2SAT 98
[2017-03-27] MEDS: hydrALAZINE HCL 10 MG TAB PO SCH ×3 (05:47→21:36)
[2017-03-27] MEDS: ALBUMIN 25% INJ 100 ML IV PRN ×2 (08:22→08:43)
[2017-03-27 08:41] LABS: AUTOMATED NEUTROPHIL # 3.6 TH/MM3 (1.8-7.7); BASOPHIL % 0.7 % (0.0-2.0); EOSINOPHIL # 0.2 TH/MM3 (0-0.4); EOSINOPHIL % 3.2 % (0.0-4.0); HEMATOCRIT 29.3 % (39.0-51.0); HEMOGLOBIN 9.6 GM/DL (13.0-17.0); LYMPH % 15.1 % (9.0-44.0); LYMPHOCYTE # 0.7 TH/MM3 (1.0-4.8); MEAN CORPUSCULAR HEMOGLOBIN 33.4 PG (27.0-34.0); MEAN CORPUSCULAR HGB CONC 32.8 % (32.0-36.0); MEAN PLATELET VOLUME 10.5 FL (7.0-11.0); MONO % 7.3 % (0.0-8.0); MONOCYTE # 0.4 TH/MM3 (0-0.9); NEUT % 73.7 % (16.0-70.0); PLATELET COUNT 113 TH/MM3 (150-450); RED BLOOD COUNT 2.88 MIL/MM3 (4.50-5.90); RED CELL DISTRIBUTION WIDTH 14.2 % (11.6-17.2); WHITE BLOOD COUNT 4.9 TH/MM3 (4.0-11.0)
[2017-03-27 09:05] LABS: CALCIUM 9.9 MG/DL (8.5-10.1); CREATININE 8.75 MG/DL (0.60-1.30)
--- NOTE | 2017-03-27 09:12 | HHI.PR ---
Subjective Remarks Follow-up on patient with end-stage renal disease on HD, edema, weakness with recurrent falls. Patient seen and examined. Patient wanted to leave AMA yesterday but is now agreeable to stay like to go to rehabilitation. He denies any complaints overnight. Denies any fever or chills. Denies any chest pain. Does report some dyspnea when laying flat that resolves with sitting up. States his lower extremity edema has improved. Denies any nausea, vomiting or abdominal pain. Objective Vitals Vital Signs Date Time Temp Pulse Resp B/P (MAP) Pulse Ox O2 Delivery O2 Flow Rate FiO2 03/27/17 04:28 98.4 70 18 130/60 (83) 98 03/26/17 23:32 98.5 68 18 166/74 (104) 97 03/26/17 22:50 97 Room Air 03/26/17 22:32 98.7 84 18 172/84 (113) 97 03/26/17 20:15 21 03/26/17 16:29 97 Room Air 03/26/17 15:50 97.9 66 18 163/72 (102) 97 03/26/17 13:20 96 21 03/26/17 12:43 98.2 63 20 185/75 (111) 97 I/O 03/26/17 03/26/17 03/26/17 03/27/17 03/27/17 03/27/17 07:00 15:00 23:00 07:00 15:00 23:00 Intake Total 100 ml 150 ml Output Total 2 ml Balance 100 ml 148 ml Intake Oral 100 ml 150 ml Output Stool Total 2 ml # Voids 3 0 # Bowel Movements 5 1 Result Diagram: 03/27/17 0704 03/26/17 0645 Imaging Last Impressions Lower Extremity Ultrasound 03/25/171809 Signed Impressions: Service Date/Time: March 18:21 - CONCLUSION: 1. Negative for deep venous thrombosis bilateral lower extremities. Dillan Loenard MD Chest X-Ray 03/25/171809 Signed Impressions: Service Date/Time: March 19:18 - CONCLUSION: Patchy bilateral lower lung infiltrates and possible left pleural effusion. Dillan Leonard MD Objective Remarks GENERAL: Well-nourished, well-developed patient in NAD. Awake and alert. Sitting up in bed satting 98% on room air. SKIN: Warm and dry. No rash. HEAD: Normocephalic. Atraumatic. EYES: EOMI. No scleral icterus. No injection or drainage. ENT: No nasal bleeding or discharge. Mucous membranes pink and moist. Ill fitting upper dentures, no lower dentures on. NECK: Trachea midline. CARDIOVASCULAR: Regular rate and rhythm. S1, S2 noted. (+)Murmur present. RESPIRATORY: Nonlabored. Clear to auscultation. Breath sounds equal bilaterally. GASTROINTESTINAL: Abdomen soft, non-tender, nondistended. Normoactive bowel sounds x4. MUSCULOSKELETAL: No obvious deformities. Extremities without clubbing or cyanosis. Trace BLE edema. NEUROLOGICAL: Awake and alert. Able to move all extremities spontaneously. No focal neurologic finding appreciated. Normal speech. PSYCHIATRIC: Appropriate mood and affect; insight and judgment normal. Medications and IVs Current Medications Medications (Trade) Dose Ordered Sig/Jamal Route Start Time Stop Time Status Last Admin (NS Flush) 2 ml UNSCH PRN IV FLUSH 03/25/17 22:45 (NS Flush) 2 ml BID IV FLUSH 03/26/17 09:00 03/26/17 22:37 (Zofran Inj) 4 mg Q6H PRN IVP 03/25/17 22:45 (Heparin Inj) 5,000 units Q12H SQ 03/26/17 09:00 03/26/17 22:37 (Tylenol) 650 mg Q6H PRN PO 03/25/17 22:45 ([place] 5-325 Mg) 1 tab Q4H PRN PO 03/25/17 22:45 ([place] 10-325 Mg) 1 tab Q4H PRN PO 03/25/17 22:45 (Danielle-Colace) 1 tab BID PO 03/26/17 09:00 03/26/17 22:37 (Milk Of Magnesia Liq) 30 ml Q12H PRN PO 03/25/17 22:45 (Senokot) 17.2 mg Q12H PRN PO 03/25/17 22:45 (Dulcolax Supp) 10 mg DAILY PRN RECTAL 03/25/17 22:45 (Lactulose Liq) 30 ml DAILY PRN PO 03/25/17 22:45 (Zyloprim) 100 mg DAILY PO 03/26/17 09:00 03/26/17 09:12 (Coreg) 25 mg BID PO 03/26/17 09:00 03/26/17 22:37 (Sensipar) 30 mg DAILY PO 03/26/17 09:00 03/26/17 09:12 (Duoneb Neb) 1 ampule Q4HR NEB PRN NEB 03/26/17 01:45 (Apresoline) 10 mg Q8HR PO 03/26/17 14:00 03/27/17 05:47 Sodium Chloride 1,000 ml @ 0 mls/hr Q0M PRN OTHER 03/26/17 13:13 (Heparin Inj) 8,000 units UNSCH PRN IV FLUSH 03/26/17 13:15 Sodium Chloride 1,000 ml @ 200 mls/hr Q5H PRN IV 03/26/17 13:13 Sodium Chloride 1,000 ml @ 0 mls/hr Q0M PRN OTHER 03/26/17 13:13 (Mannitol Inj) 12.5 gm UNSCH PRN IV 03/26/17 13:15 Albumin Human 100 ml @ 60 mls/hr UNSCH PRN IV 03/26/17 13:15 03/27/17 08:43 (NS Flush) 5 ml UNSCH PRN IV FLUSH 03/26/17 13:15 (Heparin Inj) UNSCH PRN .XX 03/26/17 13:15 (Gentamicin (Dialysis) Inj) 20 mg UNSCH PRN OTHER 03/26/17 13:15 (Zofran Inj) 4 mg UNSCH PRN IV PUSH 03/26/17 13:15 (Tylenol) 650 mg UNSCH PRN PO 03/26/17 13:15 (Benadryl) 25 mg UNSCH PRN PO 03/26/17 13:15 (Nitrostat Sl) 0.4 mg UNSCH PRN SL 03/26/17 13:15 (Catapres) 0.1 mg UNSCH PRN PO 03/26/17 13:15 (Epogen Inj) 10,000 units UNSCH PRN IV PUSH 03/26/17 13:15 (Gelfoam 12 Mm/7 Mm Top) 1 foam UNSCH PRN TOP 03/26/17 13:15 A/P Problem List: (1) Recurrent falls ICD Code: R29.6 - Repeated falls (2) ESRD (end stage renal disease) on dialysis ICD Code: N18.6 - End stage renal disease; Z99.2 - Dependence on renal dialysis (3) Lower extremity edema ICD Code: R60.0 - Localized edema (4) HTN (hypertension) ICD Code: I10 - HTN (hypertension) Status: Acute Assessment and Plan 1. Recurrent Falls: reports multiple near falls after legs "give out" due to progressive edema, no LOC or head trauma, no injuries as son able to catch him each time. Continue with PT, recommending rehab. CM consulted to assist with discharge planning. 2. ESRD on HD: T//Wed, HD on w/ no complications, +fluid overload on exam, improving. Cr and K level trending up, today's labs pending. Phos level 3.2. Nephrology following, appreciate recommendations. HD today. 3. Hyperkalemia: secondary to above. Anticipate improvement with hemodialysis. Monitor potassium intermittently. 4. Lower Extremity Edema: progressive lower extremity edema x4-5 days, left > right, LE Doppler negative for DVT. BNP 1130. CXR w/ patchy infiltrate, likely small effusion, images reviewed by me. S/p Lasix in ER. Monitor I/O. HD for fluid removal as needed. Edema improved 5. Aortic valve stenosis: Echo completed revealing EF 55% and severe aortic valve stenosis. 6. HTN: BP 190's on arrival. Continue on Coreg 25mg BID. BP elevated 195/ 80. Started on Hydralazine 10mg TID, continue. BP 130/60 currently. 7. Anemia: Suspect anemia of chronic disease. Chronic, stable. Continue to monitor. Epogen per nephrology. 8. Thrombocytopenia: Slow downward trend, platelet count dropping from 120 to 113. No active bleeding. Continue to monitor. 9. Macrocytosis: Chronic. B12 647, Folate 12.4. Obtain TSH level. ? medication side effect/patient on allopurinol. 10. DVT Prophylaxis: Heparin sq Discussed with patient, nursing staff and Dr. 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
--- NOTE | 2017-03-27 10:06 | HHI.NPPN ---
Subjective History of Present Illness 76-year-old male with past medical history of hypertension, hyperlipidemia, diabetes mellitus controlled on diet, history of end-stage renal disease on hemodialysis three times per week and chronic anemia who came to the hospital with complaint of swelling and weakness in the leg. I was called to see the patient for the management of dialysis. The patient has been on hemodialysis Wednesday, and Wednesday. Additional Remarks Patient is alert, no SOB, now on HD, not in distress. Review of Systems General Constitutional: Fatigue Cardiovascular Cardiac: Edema, SNOW Objective Data Data Vital Signs Date Time Temp Pulse Resp B/P (MAP) Pulse Ox O2 Delivery O2 Flow Rate FiO2 03/27/17 04:28 98.4 70 18 130/60 (83) 98 03/26/17 23:32 98.5 68 18 166/74 (104) 97 03/26/17 22:50 97 Room Air 03/26/17 22:32 98.7 84 18 172/84 (113) 97 03/26/17 20:15 21 03/26/17 16:29 97 Room Air 03/26/17 15:50 97.9 66 18 163/72 (102) 97 03/26/17 13:20 96 21 03/26/17 12:43 98.2 63 20 185/75 (111) 97 -: 03/27/17 0704 03/27/17 0704 Physical Exam General Appearance: No Acute Distress, Comfortable Eyes Eye Exam: Pupils Equal Throat Throat Exam: Oral Mucosa Clar[place] & Moist Neck Neck Exam: Neck Supple Pulmonary Resp Exam: Breath Sounds Equal, No Distress, Rhonchi, Decreased Bases Cardiology CV Exam: Regular, Normal Sinus Rhythm Gastrointestinal/Abdomen GI Exam: Soft, Non-Tender, Bowel Sounds Present Extremeties Extremities Exam: Moderate Edema, Pitting Edema Neurologic Neuro Exam: Alert, Awake, Oriented Psychiatric Psych Exam: Appropriate Responses Assessment/Plan Assessment Summary: Fluid/Volume Overload, Hypertension, End Stage Renal Disease Problem List: (1) Diabetes mellitus ICD Codes: E11.9 - Diabetes mellitus Status: Chronic (2) Hypertension ICD Codes: I10 - Hypertension Status: Chronic (3) Hyperlipidemia ICD Codes: E78.5 - Hyperlipidemia Status: Chronic (4) Anemia ICD Codes: D64.9 - Anemia Status: Acute (5) CKD (chronic kidney disease) stage V requiring chronic dialysis ICD Codes: N18.6 - CKD (chronic kidney disease) stage V requiring chronic dialysis; Z99.2 - Dependence on renal dialysis Status: Chronic (6) Recurrent falls ICD Codes: R29.6 - Repeated falls (7) Lower extremity edema ICD Codes: R60.0 - Localized edema Plan Patient has been on HD 3 times a week, TTS. Admitted with leg edema and recurrent falling. Patient is now on HD, removing 3 liters. Told to restrict salt and fluid intake. BP was elevated, will follow post HD. Hgb. is low, on Epogen. Will need to go to Rehab, to get PT. Quiana Mayers MD Mar 27, 2017 10:06
[2017-03-27] MEDS: EPOETIN ALFA 10,000 UNITS/ML VIAL IV PUSH PRN (10:29)
[2017-03-27 12:12] VITALS: BP 139/65; PULSE 79; RESP 18; TEMP 98; O2SAT 95
[2017-03-27] MEDS ORDERED: HYDR-3798 PO (12:31)
--- NOTE | 2017-03-27 12:38 | HHI.DCPOC ---
Discharge Care Plan Diagnosis: (1) Thrombocytopenia (2) Aortic valvar stenosis (3) Hyperkalemia (4) Impaired mobility and activities of daily living (5) Weakness (6) End stage renal disease on dialysis (7) Hypertension (8) Recurrent falls (9) CKD (chronic kidney disease) stage V requiring chronic dialysis (10) Anemia (11) Gout (12) Lower extremity edema Goals to Promote Your Health * To prevent worsening of your condition and complications * To maintain your health at the optimal level Directions to Meet Your Goals Please maintain a low-salt/fluid restricted diet. Please limit yourself to 2gm of salt and 2 L of fluid daily. Recommend daily weights. Recommend follow-up with her rn transition as an outpatient. Recommend follow-up with your channel director as outpatient. Recommended follow-up with your primary care physician in one week following discharge. Take your medications as prescribed Follow your dietary instruction Follow activity as directed Keep your appointments as scheduled Take your immunizations and boosters as scheduled If your symptoms worsen call your PCP, if no PCP go to Urgent Care Center or Emergency Room Smoking is Dangerous to Your Health. Avoid second hand smoke Call the 24-hour hour crisis hotline for domestic abuse at Ene Ferrer Mar 27, 2017 12:38
[2017-03-27] MEDS: ALLOPURINOL 100 MG TAB PO SCH (15:18)
[2017-03-27] MEDS: CINACALCET HYDROCHLORIDE 30 MG TAB PO SCH (15:19)
[2017-03-27] MEDS: CARVEDILOL 12.5 MG TAB PO SCH ×2 (15:19→21:36)
[2017-03-27] MEDS: DOCUSATE SODIUM 50 MG/SENNA 8.6 MG TAB PO SCH ×2 (15:20→21:36)
[2017-03-27] MEDS: SODIUM CHLORIDE 0.9% FLUSH 10 ML FLUSH IV FLUSH SCH ×2 (15:21→21:00)
[2017-03-27] MEDS: HEPARIN SODIUM - SQ 10,000 UNITS/ML VIAL SQ SCH ×2 (15:28→21:37)
[2017-03-27 15:29] VITALS: BP 139/64; PULSE 84; RESP 18; TEMP 98; O2SAT 94
[2017-03-27 17:39] LABS: INTERNATIONAL NORMALIZED RATIO 1.3 RATIO
[2017-03-27 20:11] VITALS: BP 117/57; PULSE 80; RESP 16; TEMP 98.1; O2SAT 99
[2017-03-27 21:00] VITALS: O2SAT 97
[2017-03-28] VITALS (7 sets, daily range): BP systolic 115–138; BP diastolic 58–80; PULSE 60–86; RESP 18–20; TEMP 97.9–98.9; O2SAT 94–98
[2017-03-28 04:39] LABS: BASOPHIL % 0.6 % (0.0-2.0); EOSINOPHIL # 0.1 TH/MM3 (0-0.4); EOSINOPHIL % 2.2 % (0.0-4.0); HEMATOCRIT 25.2 % (39.0-51.0); HEMOGLOBIN 8.4 GM/DL (13.0-17.0); LYMPH % 15.3 % (9.0-44.0); LYMPHOCYTE # 0.6 TH/MM3 (1.0-4.8); MEAN CELL VOLUME 102.8 FL (80.0-100.0); MEAN CORPUSCULAR HEMOGLOBIN 34.1 PG (27.0-34.0); MEAN CORPUSCULAR HGB CONC 33.2 % (32.0-36.0); MEAN PLATELET VOLUME 9.9 FL (7.0-11.0); MONO % 9.2 % (0.0-8.0); MONOCYTE # 0.4 TH/MM3 (0-0.9); NEUT % 72.7 % (16.0-70.0); PLATELET COUNT 93 TH/MM3 (150-450); RED BLOOD COUNT 2.45 MIL/MM3 (4.50-5.90); RED CELL DISTRIBUTION WIDTH 14.2 % (11.6-17.2); WHITE BLOOD COUNT 4.1 TH/MM3 (4.0-11.0)
[2017-03-28 05:18] LABS: BICARBONATE 32.2 MEQ/L (21.0-32.0); CALCIUM 9.3 MG/DL (8.5-10.1); CREATININE 6.5 MG/DL (0.60-1.30)
[2017-03-28] MEDS: hydrALAZINE HCL 10 MG TAB PO SCH ×3 (07:04→22:24)
[2017-03-28] MEDS: CINACALCET HYDROCHLORIDE 30 MG TAB PO SCH (08:29)
[2017-03-28] MEDS: HEPARIN SODIUM - SQ 10,000 UNITS/ML VIAL SQ SCH ×2 (08:30→22:24)
[2017-03-28] MEDS: ALLOPURINOL 100 MG TAB PO SCH (08:30)
[2017-03-28] MEDS: SODIUM CHLORIDE 0.9% FLUSH 10 ML FLUSH IV FLUSH SCH ×2 (08:31→21:00)
[2017-03-28] MEDS: CARVEDILOL 12.5 MG TAB PO SCH ×2 (08:31→22:24)
[2017-03-28] MEDS: DOCUSATE SODIUM 50 MG/SENNA 8.6 MG TAB PO SCH ×2 (08:31→22:24)
[2017-03-28] MEDS ORDERED: CALCIUM CARBONATE 500 MG CHEWABLE TAB CHEW PRN (09:45)
--- NOTE | 2017-03-28 13:48 | HHI.PR ---
Subjective Remarks Follow-up on patient with end-stage renal disease on HD, edema, weakness with recurrent falls. Patient seen and examined. Lying in bed sleeping, awakens to voice. Alert and oriented. Denies any pain, or any acute complaints. Awaiting rehabilitation placement. Eating well. Denies any abdominal pain, nausea, vomiting, diarrhea. Objective Vitals Vital Signs Date Time Temp Pulse Resp B/P (MAP) Pulse Ox O2 Delivery O2 Flow Rate FiO2 03/28/17 12:20 98.9 60 20 134/60 (84) 96 03/28/17 08:53 86 138/60 (86) 98 03/28/17 07:00 Nasal Cannula 2.00 03/28/17 05:15 98.0 63 18 136/64 (88) 97 03/27/17 23:11 Nasal Cannula 2.00 03/27/17 21:00 97 Nasal Cannula 2.00 03/27/17 20:11 98.1 80 16 117/57 (77) 99 03/27/17 15:29 98.0 84 18 139/64 (89) 94 I/O 03/27/17 03/27/17 03/27/17 03/28/17 03/28/17 03/28/17 07:00 15:00 23:00 07:00 15:00 23:00 Intake Total 150 ml 200 ml 2 ml 200 ml 100 ml Output Total 2 ml 3000 ml Balance 148 ml -2800 ml 2 ml 200 ml 100 ml Intake Oral 150 ml 200 ml 100 ml IV Total 200 ml 2 ml Output Stool Total 2 ml Hemodialysis 3000 ml Result Diagram: 03/28/17 0411 03/28/17 0411 Imaging Last Impressions Lower Extremity Ultrasound 03/25/171809 Signed Impressions: Service Date/Time: March 18:21 - CONCLUSION: 1. Negative for deep venous thrombosis bilateral lower extremities. Dillan Leonard MD Chest X-Ray 03/25/171809 Signed Impressions: Service Date/Time: March 19:18 - CONCLUSION: Patchy bilateral lower lung infiltrates and possible left pleural effusion. Dillan Leonard MD Objective Remarks GENERAL: Well-nourished, well-developed patient in NAD. Awake and alert. SKIN: Warm and dry. No rash. HEAD: Normocephalic. Atraumatic. EYES: EOMI. No scleral icterus. No injection or drainage. ENT: No nasal bleeding or discharge. Mucous membranes pink and moist. NECK: Trachea midline. CARDIOVASCULAR: Regular rate and rhythm. S1, S2 noted. (+) systolic murmur present best heard at the right second intercoastal space. RESPIRATORY: Nonlabored. Clear to auscultation. Breath sounds equal bilaterally. GASTROINTESTINAL: Abdomen soft, non-tender, nondistended. Normoactive bowel sounds x4. MUSCULOSKELETAL: No obvious deformities. Extremities without clubbing or cyanosis. Trace BLE edema. NEUROLOGICAL: Awake and alert. Able to move all extremities spontaneously. No focal neurologic finding appreciated. Normal speech. PSYCHIATRIC: Appropriate mood and affect; insight and judgment normal. A/P Problem List: (1) Recurrent falls ICD Code: R29.6 - Repeated falls (2) ESRD (end stage renal disease) on dialysis ICD Code: N18.6 - End stage renal disease; Z99.2 - Dependence on renal dialysis (3) Lower extremity edema ICD Code: R60.0 - Localized edema (4) HTN (hypertension) ICD Code: I10 - HTN (hypertension) Status: Acute Assessment and Plan Recurrent Falls: reports multiple near falls after legs "give out" due to progressive edema, no LOC or head trauma, no injuries as son able to catch him each time. Continue with PT, recommending rehab. CM consulted to assist with discharge planning. ESRD on HD: T/Th/Wed, HD on urs w/ no complications, +fluid overload on exam , improving. Cr and K level trending down. Nephrology following, appreciate recommendations. Hyperkalemia: secondary to above. Anticipate improvement with hemodialysis. Monitor potassium intermittently. Lower Extremity Edema: progressive lower extremity edema x 4-5 days, left > right, LE Doppler negative for DVT. BNP 1130. CXR w/ patchy infiltrate, likely small effusion, images reviewed by me. S/p Ana in ER. Monitor I/O. HD for fluid removal as needed. Edema improved. Aortic valve stenosis: Echo completed revealing EF 55% and severe aortic valve stenosis. HTN: BP 190's on arrival. Continue on Coreg 25mg BID. BP elevated 195/80. Continued on Hydralazine 10mg TID, continue. BP currently controlled. Anemia: Suspect anemia of chronic disease. Chronic, today 8.4 down from 10.5. Continue to monitor. Epogen per nephrology. Thrombocytopenia: Slow downward trend, platelet count dropping from 120 to 113 to 93. No active bleeding. Continue to monitor. Macrocytosis: Chronic. B12 647, Folate 12.4. TSH level WNL. ?medication side effect/patient on allopurinol. 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 CM assisting. Kelli Lora Mar 28, 2017 13:48
--- NOTE | 2017-03-28 15:15 | HHI.NPPN ---
Subjective History of Present Illness 76-year-old male with past medical history of hypertension, hyperlipidemia, diabetes mellitus controlled on diet, history of end-stage renal disease on hemodialysis three times per week and chronic anemia who came to the hospital with complaint of swelling and weakness in the leg. I was called to see the patient for the management of dialysis. The patient has been on hemodialysis Wednesday, and Wednesday. Additional Remarks Patient is alert, no SOB, has loose BM in AM. Review of Systems General Constitutional: Fatigue Cardiovascular Cardiac: Edema, SNOW Objective Data Data 03/28/17 03/29/17 19:00 07:00 Intake Total 100 ml Balance 100 ml Intake Oral 100 ml Vital Signs Date Time Temp Pulse Resp B/P (MAP) Pulse Ox O2 Delivery O2 Flow Rate FiO2 03/28/17 12:20 98.9 60 20 134/60 (84) 96 03/28/17 08:53 86 138/60 (86) 98 03/28/17 07:00 Nasal Cannula 2.00 03/28/17 05:15 98.0 63 18 136/64 (88) 97 03/27/17 23:11 Nasal Cannula 2.00 03/27/17 21:00 97 Nasal Cannula 2.00 03/27/17 20:11 98.1 80 16 117/57 (77) 99 03/27/17 15:29 98.0 84 18 139/64 (89) 94 -: 03/28/17 0411 03/28/17 0411 Physical Exam General Appearance: No Acute Distress, Comfortable Eyes Eye Exam: Pupils Equal Throat Throat Exam: Oral Mucosa [place] & Moist Neck Neck Exam: Neck Supple Pulmonary Resp Exam: Breath Sounds Equal, No Distress, Rhonchi, Decreased Bases Cardiology CV Exam: Regular, Normal Sinus Rhythm Gastrointestinal/Abdomen GI Exam: Soft, Non-Tender, Bowel Sounds Present Extremeties Extremities Exam: Moderate Edema, Pitting Edema Neurologic Neuro Exam: Alert, Awake, Oriented Psychiatric Psych Exam: Appropriate Responses Assessment/Plan Assessment Summary: Fluid/Volume Overload, Hypertension, End Stage Renal Disease Problem List: (1) Diabetes mellitus ICD Codes: E11.9 - Diabetes mellitus Status: Chronic (2) Hypertension ICD Codes: I10 - Hypertension Status: Chronic (3) Hyperlipidemia ICD Codes: E78.5 - Hyperlipidemia Status: Chronic (4) Anemia ICD Codes: D64.9 - Anemia Status: Acute (5) CKD (chronic kidney disease) stage V requiring chronic dialysis ICD Codes: N18.6 - CKD (chronic kidney disease) stage V requiring chronic dialysis; Z99.2 - Dependence on renal dialysis Status: Chronic (6) Recurrent falls ICD Codes: R29.6 - Repeated falls (7) Lower extremity edema ICD Codes: R60.0 - Localized edema Plan Patient has been on HD 3 times a week, TTS. Admitted with leg edema and recurrent falling. Patient is now on HD, removing 3 liters. Told to restrict salt and fluid intake. BP is better now. Hgb. decreased, no active bleeding, on Epogen. Will need to go to Rehab, to get PT. Continue HD, TTS. Quiana Mayers MD Mar 28, 2017 15:15
[2017-03-29] VITALS (7 sets, daily range): BP systolic 112–147; BP diastolic 53–67; PULSE 60–69; RESP 17–20; TEMP 97.7–98.7; O2SAT 92–100
[2017-03-29] MEDS: hydrALAZINE HCL 10 MG TAB PO SCH ×3 (05:53→22:33)
[2017-03-29] MEDS: DOCUSATE SODIUM 50 MG/SENNA 8.6 MG TAB PO SCH ×2 (09:00→21:00)
--- NOTE | 2017-03-29 09:13 | HHI.PR ---
Subjective Remarks Follow up on ESRD on HD, weakness, recurrent falls. The patient reports continued lower extremity weakness. He states up until 4-5days ago, he was able to ambulate on his own, drive his car, go grocery shopping, etc. He is agreeable to rehab placement. He has no other medical complaints at this time including no shortness of breath, chest pain, or abdominal complaints. Objective Vitals Vital Signs Date Time Temp Pulse Resp B/P (MAP) Pulse Ox O2 Delivery O2 Flow Rate FiO2 03/29/17 07:46 93 21 03/29/17 07:46 97.7 65 18 142/64 (90) 92 03/29/17 03:58 97.9 64 18 135/65 (88) 98 03/29/17 00:08 98.0 69 17 121/59 (79) 96 03/28/17 19:26 97.9 70 115/58 (77) 94 03/28/17 19:00 2.00 03/28/17 16:24 98.9 70 18 136/80 (98) 98 03/28/17 12:20 98.9 60 20 134/60 (84) 96 I/O 03/28/17 03/28/17 03/28/17 03/29/17 03/29/17 03/29/17 07:00 15:00 23:00 07:00 15:00 23:00 Intake Total 200 ml 100 ml Balance 200 ml 100 ml Intake Oral 200 ml 100 ml Result Diagram: 03/28/17 04103/28/17 041 Imaging Last Impressions Lower Extremity Ultrasound 03/25/171809 Signed Impressions: Service Date/Time: March 18:21 - CONCLUSION: 1. Negative for deep venous thrombosis bilateral lower extremities. Dillan Leonard MD Chest X-Ray 03/25/171809 Signed Impressions: Service Date/Time: March 19:18 - CONCLUSION: Patchy bilateral lower lung infiltrates and possible left pleural effusion. Dillan Leonard MD Objective Remarks GENERAL: Well-nourished, well-developed elderly male patient in [facility]. SKIN: Warm and dry. No rash. HEENT: Normocephalic. Atraumatic.Pupils equal and round. Mucous membranes pink and moist. NECK: Supple. Trachea midline. CARDIOVASCULAR: Regular rate and rhythm. S1, S2 noted. 3/6 systolic murmur noted. RESPIRATORY: No accessory muscle use. Clear to auscultation. Breath sounds equal bilaterally. GASTROINTESTINAL: Abdomen soft, non-tender, nondistended. Normoactive bowel sounds x4. MUSCULOSKELETAL: No obvious deformities. Extremities without clubbing, cyanosis , or edema. NEUROLOGICAL: Awake and alert. No obvious cranial nerve deficits. Motor grossly within normal limits. 4/5 muscle strength in bilateral lower extremities , 5/5 strength b/l upper extremities. Normal speech. PSYCHIATRIC: Appropriate mood and affect; insight and judgment normal. Medications and IVs Current Medications Medications (Trade) Dose Ordered Sig/Jamal Route Start Time Stop Time Status Last Admin (NS Flush) 2 ml UNSCH PRN IV FLUSH 03/25/17 22:45 (NS Flush) 2 ml BID IV FLUSH 03/26/17 09:00 03/28/17 08:31 (Zofran Inj) 4 mg Q6H PRN IVP 03/25/17 22:45 (Heparin Inj) 5,000 units Q12H SQ 03/26/17 09:00 03/28/17 22:24 (Tylenol) 650 mg Q6H PRN PO 03/25/17 22:45 (Bruce 5-325 Mg) 1 tab Q4H PRN PO 03/25/17 22:45 (Bruce 10-325 Mg) 1 tab Q4H PRN PO 03/25/17 22:45 (Danielle-Colace) 1 tab BID PO 03/26/17 09:00 03/28/17 22:24 (Milk Of Magnesia Liq) 30 ml Q12H PRN PO 03/25/17 22:45 03/29/17 05:53 (Senokot) 17.2 mg Q12H PRN PO 03/25/17 22:45 (Dulcolax Supp) 10 mg DAILY PRN RECTAL 03/25/17 22:45 (Lactulose Liq) 30 ml DAILY PRN PO 03/25/17 22:45 (Zyloprim) 100 mg DAILY PO 03/26/17 09:00 03/28/17 08:30 (Coreg) 25 mg BID PO 03/26/17 09:00 03/28/17 22:24 (Sensipar) 30 mg DAILY PO 03/26/17 09:00 03/28/17 08:29 (Duoneb Neb) 1 ampule Q4HR NEB PRN NEB 03/26/17 01:45 (Apresoline) 10 mg Q8HR PO 03/26/17 14:00 03/29/17 05:53 Sodium Chloride 1,000 ml @ 0 mls/hr Q0M PRN OTHER 03/26/17 13:13 (Heparin Inj) 8,000 units UNSCH PRN IV FLUSH 03/26/17 13:15 Sodium Chloride 1,000 ml @ 200 mls/hr Q5H PRN IV 03/26/17 13:13 Sodium Chloride 1,000 ml @ 0 mls/hr Q0M PRN OTHER 03/26/17 13:13 (Mannitol Inj) 12.5 gm UNSCH PRN IV 03/26/17 13:15 Albumin Human 100 ml @ 60 mls/hr UNSCH PRN IV 03/26/17 13:15 03/27/17 08:43 (NS Flush) 5 ml UNSCH PRN IV FLUSH 03/26/17 13:15 (Heparin Inj) UNSCH PRN .XX 03/26/17 13:15 (Gentamicin (Dialysis) Inj) 20 mg UNSCH PRN OTHER 03/26/17 13:15 (Zofran Inj) 4 mg UNSCH PRN IV PUSH 03/26/17 13:15 03/27/17 22:59 (Tylenol) 650 mg UNSCH PRN PO 03/26/17 13:15 (Benadryl) 25 mg UNSCH PRN PO 03/26/17 13:15 (Nitrostat Sl) 0.4 mg UNSCH PRN SL 03/26/17 13:15 (Catapres) 0.1 mg UNSCH PRN PO 03/26/17 13:15 (Epogen Inj) 10,000 units UNSCH PRN IV PUSH 03/26/17 13:15 03/27/17 10:29 (Gelfoam 12 Mm/7 Mm Top) 1 foam UNSCH PRN TOP 03/26/17 13:15 (Tums Chew) 500 mg Q2H PRN CHEW 03/28/17 09:45 03/28/17 10:16 (Imodium) 2 mg Q6H PRN PO 03/28/17 15:30 A/P Problem List: (1) Recurrent falls ICD Code: R29.6 - Repeated falls (2) ESRD (end stage renal disease) on dialysis ICD Code: N18.6 - End stage renal disease; Z99.2 - Dependence on renal dialysis (3) Lower extremity edema ICD Code: R60.0 - Localized edema (4) HTN (hypertension) ICD Code: I10 - HTN (hypertension) Status: Acute Assessment and Plan Recurrent Falls: reports multiple near falls after legs "give out" suddenly, no LOC, no head trauma, no injuries as son able to catch him each time. Suspect deconditioning in combination with worsening edema, however need to rule out other etiologies including spinal stenosis. Consult PT, recommending rehab. CM consulted to assist with discharge planning. Check lumbar spine CT ESRD on HD: T//Wed, HD on w/ no complications, +fluid overload on exam , improving. Cr and K level trending down. Nephrology following, appreciate recommendations. Hyperkalemia: secondary to above. Anticipate improvement with hemodialysis. Monitor potassium intermittently. Lower Extremity Edema: progressive lower extremity edema x 4-5 days, left > right, LE Doppler negative for DVT. BNP 1130. CXR w/ patchy infiltrate, likely small effusion, images reviewed by me. S/p Ana in ER. Monitor I/O. HD for fluid removal as needed. Edema improved. Aortic valve stenosis: Echo completed revealing EF 55% and severe aortic valve stenosis. Patient states he is aware of stenosis, has been present over 30years. Outpatient f/up. HTN: BP 190's on arrival. Continue on Coreg 25mg BID. BP elevated 195/80. Started on Hydralazine 10mg TID, continue. BP currently controlled. Anemia: Suspect anemia of chronic disease. Chronic, today 8.4 down from 10.5. Continue to monitor. Epogen per nephrology. Thrombocytopenia: Slow downward trend, platelet count dropping from 120 to 113 to 93. No active bleeding. Continue to monitor. Macrocytosis: Chronic. B12 647, Folate 12.4. TSH level WNL. ?medication side effect/patient on allopurinol. Outpatient f/up. 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 Nya Talavera PA-C Mar 29, 2017 9:12 am
[2017-03-29] MEDS: CARVEDILOL 12.5 MG TAB PO SCH ×2 (09:19→22:33)
[2017-03-29] MEDS: SODIUM CHLORIDE 0.9% FLUSH 10 ML FLUSH IV FLUSH SCH ×2 (09:19→22:33)
[2017-03-29] MEDS: CINACALCET HYDROCHLORIDE 30 MG TAB PO SCH (09:19)
[2017-03-29] MEDS: HEPARIN SODIUM - SQ 10,000 UNITS/ML VIAL SQ SCH ×2 (09:20→22:34)
[2017-03-29] MEDS: ALLOPURINOL 100 MG TAB PO SCH (09:20)
[2017-03-29] MEDS ORDERED: LACTOBACILLUS ACIDOPHILUS TAB PO ONE (09:30)
[2017-03-29] MEDS: LOPERAMIDE HCL 2 MG CAP PO PRN (10:29)
--- NOTE | 2017-03-29 11:05 | RADRPT ---
EXAM DATE/TIME: 03/29/2017 10:07 [facility] COMPARISON: No previous studies available for comparison. INDICATIONS : Lower back pain, sciatic nerve pain. RADIATION DOSE: 35.86 CTDIvol (mGy) MEDICAL HISTORY : Hypertension. Renal failure. Diabetes. Skin Cancer. Dialysis. SURGICAL HISTORY : None. ENCOUNTER: Initial ACUITY: 1 month PAIN SCALE: 9/10 LOCATION: Lumbar spine. TECHNIQUE: Volumetric scanning of the lumbar spine was performed. Multiplanar reconstructions in the sagittal, coronal and oblique axial planes were performed. Using automated exposure control and adjustment of the mA and/or kV according to patient size, radiation dose was kept as low as reasonably achievable t o obtain optimal diagnostic quality images. DICOM format image data is available electronically for review and comparison. FINDINGS: VERTEBRAE: Extensive degenerative changes throughout the lumbar spine. ALIGNMENT: No evidence of subluxation. T12-L1: The thecal sac has a normal diameter. No evidence of disc bulge or protrusion. The neural foramina are patent bilaterally. L1-L2: The thecal sac has a normal diameter. No evidence of disc bulge or protrusion. The neural foramina are patent bilaterally. L2-L3: Marked loss of disc space height with vacuum changes evident. Generalized disc bulging moderate spin al stenosis. L3-L4: Extensive degenerative changes evident with vacuum changes. Bilateral neural foramina encroachment a nd moderate spinal stenosis. Neural foraminal encroachment worse on the right. L4-L5: Extensive degenerative changes evident bilateral neural foramina encroachment extension facet disease particularly on the left. This is accentuated by the scoliosis. L5-S1: Vacuum changes L5-S1 bilateral neural foramina encroachment and extensive facet disease. Bilateral S I joint erosive changes. Extensive vascular calcifications. 4.5 cm left renal cyst Large apparent 10 cm cyst in the right incompletely evaluated on this exam. CONCLUSION: Extensive degenerative changes throughout the lumbar spine accentuated by scoliosis. There is signif icant neuroforaminal encroachment as well as changes in the facets Noncontrast CT scan of the abdomen is suggested further evaluate the large apparent cystic mass on th e right. Williams Mahajan MD FACR on March 29, 2017 at 11:00 Board Certified Radiologist. This report was verified electronically.
--- NOTE | 2017-03-29 11:44 | HHI.NPPN ---
Subjective History of Present Illness 76-year-old male with past medical history of hypertension, hyperlipidemia, diabetes mellitus controlled on diet, history of end-stage renal disease on hemodialysis three times per week and chronic anemia who came to the hospital with complaint of swelling and weakness in the leg. I was called to see the patient for the management of dialysis. The patient has been on hemodialysis Wednesday, and Wednesday. Additional Remarks Patient is alert, no SOB, BM is better, has mild lower back pain. Review of Systems General Constitutional: Fatigue Cardiovascular Cardiac: Edema, SNOW Objective Data Data Vital Signs Date Time Temp Pulse Resp B/P (MAP) Pulse Ox O2 Delivery O2 Flow Rate FiO2 03/29/17 09:10 96 Nasal Cannula 2.00 21 03/29/17 07:46 93 21 03/29/17 07:46 97.7 65 18 142/64 (90) 92 03/29/17 03:58 97.9 64 18 135/65 (88) 98 03/29/17 00:08 98.0 69 17 121/59 (79) 96 03/28/17 19:26 97.9 70 115/58 (77) 94 03/28/17 19:00 2.00 03/28/17 16:24 98.9 70 18 136/80 (98) 98 03/28/17 12:20 98.9 60 20 134/60 (84) 96 -: 03/28/17 0411 03/28/17 0411 Microbiology 03/29/17 , Received Pending Physical Exam General Appearance: No Acute Distress, Comfortable Eyes Eye Exam: Pupils Equal Throat Throat Exam: Oral Mucosa [place] & Moist Neck Neck Exam: Neck Supple Pulmonary Resp Exam: Breath Sounds Equal, No Distress, Rhonchi, Decreased Bases Cardiology CV Exam: Regular, Normal Sinus Rhythm Gastrointestinal/Abdomen GI Exam: Soft, Non-Tender, Bowel Sounds Present Extremeties Extremities Exam: Moderate Edema, Pitting Edema Neurologic Neuro Exam: Alert, Awake, Oriented Psychiatric Psych Exam: Appropriate Responses Assessment/Plan Assessment Summary: Fluid/Volume Overload, Hypertension, End Stage Renal Disease Problem List: (1) Diabetes mellitus ICD Codes: E11.9 - Diabetes mellitus Status: Chronic (2) Hypertension ICD Codes: I10 - Hypertension Status: Chronic (3) Hyperlipidemia ICD Codes: E78.5 - Hyperlipidemia Status: Chronic (4) Anemia ICD Codes: D64.9 - Anemia Status: Acute (5) CKD (chronic kidney disease) stage V requiring chronic dialysis ICD Codes: N18.6 - CKD (chronic kidney disease) stage V requiring chronic dialysis; Z99.2 - Dependence on renal dialysis Status: Chronic (6) Recurrent falls ICD Codes: R29.6 - Repeated falls (7) Lower extremity edema ICD Codes: R60.0 - Localized edema Plan Patient has been on HD 3 times a week, TTS. Admitted with leg edema and recurrent falling. Patient is now on HD, removing 3 liters. Told to restrict salt and fluid intake. BP is better now. Hgb. decreased, no active bleeding, on Epogen. Will need to go to Rehab, to get PT. Continue HD, TTS. Follow Hgb. Neurosurgery consulted. CT of spine. HD will be in AM. Quiana Mayers MD Mar 29, 2017 11:44
[2017-03-29] MEDS: LACTOBACILLUS ACIDOPHILUS TAB PO SCH ×2 (13:22→17:23)
[2017-03-29] MEDS: metroNIDAZOLE 500 MG TAB PO SCH ×2 (15:08→22:34)
--- NOTE | 2017-03-29 15:57 | RADRPT ---
EXAM DATE/TIME: 03/29/2017 15:33 [facility] COMPARISON: US KIDNEY/RENAL/BLADDER, March 10, 2014, 11:36. INDICATIONS : Right sided cystic mass with diffuse abdomen pain. ORAL CONTRAST: No oral contrast ingested. RADIATION DOSE: 13.04 CTDIvol (mGy) MEDICAL HISTORY : Hypertension. Diabetes mellitus type 2. Skin cancer, Renal disease/failure. SURGICAL HISTORY : None. ENCOUNTER: Initial ACUITY: 1 day PAIN SCALE: 2/10 LOCATION: Right upper quadrant TECHNIQUE: Volumetric scanning of the abdomen and pelvis was performed. Using automated exposure control and ad justment of the mA and/or kV according to patient size, radiation dose was kept as low as reasonably achievable to obtain optimal diagnostic quality images. DICOM format image data is available electro nically for review and comparison. FINDINGS: LOWER LUNGS: Small bilateral pleural effusions. LIVER: Homogeneous density without lesion. There is no dilation of the biliary tree. No calcified gallston es. SPLEEN: Normal size without lesion. PANCREAS: Stranding opacity adjacent to the pancreatic head and tracking inferiorly in the intra-abdominal fat indicating possible acute pancreatitis. No organized fluid collections. KIDNEYS: 11.3 cm rim calcified cystic mass extending from the region of the anterior midpole the right kidney. This measures slightly smaller than the large cystic mass in this location identified on renal ultra sound of 03/10/2014. Multiple additional bilateral renal cysts are identified. 2.7 x 2.3 x 1.9 cm inte rmediate density mass laterally in the midpole the right kidney also noted. No evidence of hydronephr osis. ADRENAL GLANDS: Within normal limits. VASCULAR: Diffuse aortic calcification and tortuosity. Diameter is within normal limits. BOWEL/MESENTERY: Scattered colonic diverticula. No evidence of acute diverticulitis. Appendix within normal limits. No bowel dilatation. No free air or free fluid. ABDOMINAL WALL: Within normal limits. RETROPERITONEUM: There is no lymphadenopathy. BLADDER: No wall thickening or mass. REPRODUCTIVE: Within normal limits. INGUINAL: There is no lymphadenopathy or hernia. MUSCULOSKELETAL: Prominent degenerative findings of the lumbar spine. CONCLUSION: 1. Inflammatory changes about the pancreatic head and in the central mesenteric fat indicating possib le acute pancreatitis. No organized fluid collections. 2. Colonic diverticulosis. No evidence of acute diverticulitis. 3. 11 cm calcified cyst in the right kidney slightly smaller than on comparison ultrasound study of 2 014. 4. Indeterminate 2.7 cm intermediate density mass in the midpole right kidney with no correlate on ul so2013. May represent a complex cyst or solid mass. This could be further evaluated with renal ultrasound. 5. Diffuse severe arterial calcification. 6. Small bilateral pleural effusions. Gray Jimenez MD on March 29, 2017 at 15:40 Board Certified Radiologist. This report was verified electronically.
--- NOTE | 2017-03-29 17:46 | PD.CONS ---
History of Present Illness Service Neurosurgery Consult Requested By Medicine service Reason for Consult Lower extremity weakness, difficulty ambulating Primary Care Physician [facility] Diagnoses: History of Present Illness 76-year-old male with history of diabetes, end-stage renal disease on hemodialysis, hypertension, hypercholesterolemia. He states that he was doing relatively well until L4-5 days ago when he reached over to pick something up and fell. Since that time he noted increasing difficulty with ambulation, unsteady on his feet with relatively mild numbness and weakness in the hands. Also increased edema in the lower extremities for a few days. Mild neck pain. Moderate low back pain. 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 Review of Systems Constitutional: COMPLAINS OF: Fatigue, DENIES: Fever Eyes: DENIES: Blurred vision Ears, nose, mouth, throat: COMPLAINS OF: Hearing loss, DENIES: Vertigo Respiratory: COMPLAINS OF: Shortness of breath Cardiovascular: DENIES: Chest pain, Palpitations Gastrointestinal: DENIES: Abdominal pain, Nausea Musculoskeletal: COMPLAINS OF: Muscle aches, Joint Swelling, Back pain, Neck pain Hematologic/lymphatic: DENIES: Bruising Neurologic: COMPLAINS OF: Abnormal gait, DENIES: Headache Psychiatric: DENIES: Confusion Past Family Social History Allergies: Coded Allergies: No Known Allergies (Verified Allergy, Unknown, 03/25/17) Physical Exam Vital Signs Vital Signs Date Time Temp Pulse Resp B/P (MAP) Pulse Ox O2 Delivery O2 Flow Rate FiO2 03/29/17 16:00 97.8 60 18 112/53 (72) 97 03/29/17 12:21 97.8 65 18 147/67 (93) 95 03/29/17 09:10 96 Nasal Cannula 2.00 21 03/29/17 07:46 93 21 03/29/17 07:46 97.7 65 18 142/64 (90) 92 03/29/17 03:58 97.9 64 18 135/65 (88) 98 03/29/17 00:08 98.0 69 17 121/59 (79) 96 03/28/17 19:26 97.9 70 115/58 (77) 94 03/28/17 19:00 2.00 Physical Exam GENERAL: This is a well-nourished, well-developed patient, in no apparent distress. SKIN: No rashes, ecchymoses or lesions. Cool and dry. HEAD: Atraumatic. Normocephalic. No temporal or scalp tenderness. EYES: Sclerae clear and nonicteric. ENT: No facial edema or ecchymosis NECK: Trachea midline. No JVD or lymphadenopathy. Supple, nontender, no meningeal signs. CARDIOVASCULAR: Regular rate and rhythm without murmurs, gallops, or rubs. RESPIRATORY: Clear to auscultation. Breath sounds equal bilaterally. No wheezes , rales, or rhonchi. GASTROINTESTINAL: Abdomen soft, non-tender, nondistended. No hepato-splenomegaly , or palpable masses. No guarding. MUSCULOSKELETAL: Moderate lower extremity edema. No joint tenderness, effusion, or edema noted. No calf tenderness. Posterior tibial pulse and dorsalis pedis pulses not palpable NEUROLOGICAL: Awake and alert. Oriented conversant and appropriate Recent and remote memory intact Speech is clear Reasonable judgment and insight No evidence of anxiety or depression Sensation mildly diminished light touch diffuse in the hands Sensation intact in the lower extremities to light touch Strength is mostly 3+-4/5 hand intrinsics, 4-5/5 proximal upper extremities. Strength is 5/5 in the lower extremities with some difficulty with lower extremity coordination Hoffmans absent bilateral No ankle clonus Plantar neutral bilateral Laboratory Laboratory Tests Test 03/29/17 09:40 Stool C. difficile Toxin (PCR) POSITIVE Stl C. difficile Toxin Epiderm 027 PRESUMPTIVE NEGATIVE Date/Time Source Procedure Growth Status 03/29/17 09:40 Stool Stool Pending Received Result Diagram: 03/28/17 0411 03/28/17 0411 Imaging 03/29/17 CT scan lumbar spine images reviewed by the undersigned. There is mostly mild to moderate of the lower lumbar canal stenosis. Lumbar Spine CT 03/29/17 0000 Signed Impressions: Service Date/Time: Wednesday, March 29, 2017 10:07 - CONCLUSION: Extensive degenerative changes throughout the lumbar spine accentuated by scoliosis. There is significant neuroforaminal encroachment as well as changes in the facets Noncontrast CT scan of the abdomen is suggested further evaluate the large apparent cystic mass on the right. Williams Mahajan MD FACR Abdomen/Pelvis CT 03/29/17 0000 Signed Impressions: Service Date/Time: Wednesday, March 29, 2017 15:33 - CONCLUSION: 1. Inflammatory changes about the pancreatic head and in the central mesenteric fat indicating possible acute pancreatitis. No organized fluid collections. 2. Colonic diverticulosis. No evidence of acute diverticulitis. 3. 11 cm calcified cyst in the right kidney slightly smaller than on comparison ultrasound study of 2013. 4. Indeterminate 2.7 cm intermediate density mass in the midpole right kidney with no correlate on ultrasound 2013. May represent a complex cyst or solid mass. This could be further evaluated with renal ultrasound. 5. Diffuse severe arterial calcification. 6. Small bilateral pleural effusions. Gray Jimenez MD Lower Extremity Ultrasound 03/25/171809 Signed Impressions: Service Date/Time: , March 25, 2017 18:21 - CONCLUSION: 1. Negative for deep venous thrombosis bilateral lower extremities. Dillan Leonard MD Chest X-Ray 03/25/171809 Signed Impressions: Service Date/Time: , March 25, 2017 19:18 - CONCLUSION: Patchy bilateral lower lung infiltrates and possible left pleural effusion. Dillan Leonard MD Assessment and Plan Assessment and Plan Impression: 1. Mostly mild to moderate mid to lower lumbar stenosis. This does not appear to be sufficient to account for his recent gait difficulty. 2. Possible cervical myelopathy. Long tract findings may be obscured by his diabetes Recommendations: Discussed with patient Recommend MRI of the entire spine to rule out significant spinal cord compression or contusion. He is claustrophobic and will likely need sedation for the study Osiel Fragoso MD Mar 29, 2017 17:46
[2017-03-30 00:21] VITALS: BP 133/61; PULSE 60; RESP 20; TEMP 99.1; O2SAT 100
[2017-03-30 04:47] VITALS: BP 158/72; PULSE 62; RESP 18; TEMP 97.9; O2SAT 100
[2017-03-30] MEDS: metroNIDAZOLE 500 MG TAB PO SCH ×3 (05:35→20:33)
[2017-03-30] MEDS: hydrALAZINE HCL 10 MG TAB PO SCH ×3 (05:36→20:33)
[2017-03-30 06:05] LABS: BASOPHIL % 0.6 % (0.0-2.0); EOSINOPHIL # 0.2 TH/MM3 (0-0.4); EOSINOPHIL % 3.6 % (0.0-4.0); HEMATOCRIT 27.1 % (39.0-51.0); HEMOGLOBIN 9.2 GM/DL (13.0-17.0); LYMPH % 14.3 % (9.0-44.0); LYMPHOCYTE # 0.8 TH/MM3 (1.0-4.8); MEAN CORPUSCULAR HEMOGLOBIN 35.5 PG (27.0-34.0); MEAN CORPUSCULAR HGB CONC 33.8 % (32.0-36.0); MEAN PLATELET VOLUME 10.6 FL (7.0-11.0); MONO % 7.7 % (0.0-8.0); MONOCYTE # 0.4 TH/MM3 (0-0.9); NEUT % 73.8 % (16.0-70.0); PLATELET COUNT 115 TH/MM3 (150-450); RED BLOOD COUNT 2.58 MIL/MM3 (4.50-5.90); RED CELL DISTRIBUTION WIDTH 14.4 % (11.6-17.2); WHITE BLOOD COUNT 5.5 TH/MM3 (4.0-11.0)
[2017-03-30 06:26] LABS: BICARBONATE 28.5 MEQ/L (21.0-32.0); CALCIUM 9.1 MG/DL (8.5-10.1)
[2017-03-30] MEDS: DOCUSATE SODIUM 50 MG/SENNA 8.6 MG TAB PO SCH ×2 (09:00→20:33)
[2017-03-30] MEDS ORDERED: LORazepam 2 MG/ML VIAL IV PUSH PRN (09:00)
[2017-03-30] MEDS: HEPARIN SODIUM - SQ 10,000 UNITS/ML VIAL SQ SCH ×2 (09:00→20:33)
[2017-03-30] MEDS: EPOETIN ALFA 10,000 UNITS/ML VIAL IV PUSH PRN (09:19)
--- NOTE | 2017-03-30 10:10 | HHI.NPPN ---
Subjective History of Present Illness 76-year-old male with past medical history of hypertension, hyperlipidemia, diabetes mellitus controlled on diet, history of end-stage renal disease on hemodialysis three times per week and chronic anemia who came to the hospital with complaint of swelling and weakness in the leg. I was called to see the patient for the management of dialysis. The patient has been on hemodialysis Wednesday, and Wednesday. Additional Remarks Patient is alert, no SOB,has mild lower back pain, now on HD, not in distress. Review of Systems General Constitutional: Fatigue Cardiovascular Cardiac: Edema, SNOW Objective Data Data Vital Signs Date Time Temp Pulse Resp B/P (MAP) Pulse Ox O2 Delivery O2 Flow Rate FiO2 03/30/17 07:58 Nasal Cannula 2.00 03/30/17 04:47 97.9 62 18 158/72 (100) 100 03/30/17 00:21 99.1 60 20 133/61 (85) 100 03/29/17 21:30 98.7 67 20 131/62 (85) 100 03/29/17 20:00 98 Nasal Cannula 2.00 03/29/17 19:08 98 Nasal Cannula 2.00 21 03/29/17 16:00 97.8 60 18 112/53 (72) 97 03/29/17 12:21 97.8 65 18 147/67 (93) 95 -: 03/30/17 0516 03/30/17 0516 Physical Exam General Appearance: No Acute Distress, Comfortable Eyes Eye Exam: Pupils Equal Throat Throat Exam: Oral Mucosa [place] & Moist Neck Neck Exam: Neck Supple Pulmonary Resp Exam: Breath Sounds Equal, No Distress, Rhonchi, Decreased Bases Cardiology CV Exam: Regular, Normal Sinus Rhythm Gastrointestinal/Abdomen GI Exam: Soft, Non-Tender, Bowel Sounds Present Extremeties Extremities Exam: Moderate Edema, Pitting Edema Neurologic Neuro Exam: Alert, Awake, Oriented Psychiatric Psych Exam: Appropriate Responses Assessment/Plan Assessment Summary: Fluid/Volume Overload, Hypertension, End Stage Renal Disease Problem List: (1) Diabetes mellitus ICD Codes: E11.9 - Diabetes mellitus Status: Chronic (2) Hypertension ICD Codes: I10 - Hypertension Status: Chronic (3) Hyperlipidemia ICD Codes: E78.5 - Hyperlipidemia Status: Chronic (4) Anemia ICD Codes: D64.9 - Anemia Status: Acute (5) CKD (chronic kidney disease) stage V requiring chronic dialysis ICD Codes: N18.6 - CKD (chronic kidney disease) stage V requiring chronic dialysis; Z99.2 - Dependence on renal dialysis Status: Chronic (6) Recurrent falls ICD Codes: R29.6 - Repeated falls (7) Lower extremity edema ICD Codes: R60.0 - Localized edema Plan Patient has been on HD 3 times a week, TTS. Admitted with leg edema and recurrent falling. Patient is now on HD, removing 3 liters. Told to restrict salt and fluid intake. BP is better now. Hgb. decreased, no active bleeding, on Epogen. Will need to go to Rehab, to get PT. Continue HD, TTS. Follow up Hgb is stable. Neurosurgery consulted. CT of spine noted, for MRI. Removing 1.5 liters. Quiana Mayers MD Mar 30, 2017 10:10
--- NOTE | 2017-03-30 11:18 | HHI.NSPN ---
History Interval History 03/29: 76-year-old male with history of diabetes, end-stage renal disease on hemodialysis, hypertension, hypercholesterolemia. He states that he was doing relatively well until L4-5 days ago when he reached over to pick something up and fell. Since that time he noted increasing difficulty with ambulation, unsteady on his feet with relatively mild numbness and weakness in the hands. Also increased edema in the lower extremities for a few days. Mild neck pain. Moderate low back pain. 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 03/30: Exam Results 03/28/17 03/28/17 03/29/17 03/29/17 03/30/17 03/30/17 06:00 18:00 06:00 18:00 06:00 18:00 Intake Total 202 ml 100 ml Output Total 1500 ml Balance 202 ml 100 ml -1500 ml Intake Oral 200 ml 100 ml IV Total 2 ml Hemodialysis 1500 ml Vital Signs Date Time Temp Pulse Resp B/P (MAP) Pulse Ox O2 Delivery O2 Flow Rate FiO2 03/30/17 07:58 Nasal Cannula 2.00 03/30/17 04:47 97.9 62 18 158/72 (100) 100 03/30/17 00:21 99.1 60 20 133/61 (85) 100 03/29/17 21:30 98.7 67 20 131/62 (85) 100 03/29/17 20:00 98 Nasal Cannula 2.00 03/29/17 19:08 98 Nasal Cannula 2.00 21 03/29/17 16:00 97.8 60 18 112/53 (72) 97 03/29/17 12:21 97.8 65 18 147/67 (93) 95 03/29/17 09:10 96 Nasal Cannula 2.00 21 03/29/17 07:46 93 21 03/29/17 07:46 97.7 65 18 142/64 (90) 92 03/29/17 03:58 97.9 64 18 135/65 (88) 98 03/29/17 00:08 98.0 69 17 121/59 (79) 96 03/28/17 19:26 97.9 70 115/58 (77) 94 03/28/17 19:00 2.00 03/28/17 16:24 98.9 70 18 136/80 (98) 98 03/28/17 12:20 98.9 60 20 134/60 (84) 96 03/28/17 08:53 86 138/60 (86) 98 03/28/17 07:00 Nasal Cannula 2.00 03/28/17 05:15 98.0 63 18 136/64 (88) 97 03/27/17 23:11 Nasal Cannula 2.00 03/27/17 21:00 97 Nasal Cannula 2.00 03/27/17 20:11 98.1 80 16 117/57 (77) 99 03/27/17 15:29 98.0 84 18 139/64 (89) 94 03/27/17 12:12 98.0 79 18 139/65 (89) 95 Physical Examination GENERAL: This is a well-nourished, well-developed patient, in no apparent distress. SKIN: No rashes, ecchymoses or lesions. Cool and dry. HEAD: Atraumatic. Normocephalic. No temporal or scalp tenderness. EYES: Sclerae clear and nonicteric. ENT: No facial edema or ecchymosis NECK: Trachea midline. No JVD or lymphadenopathy. Supple, nontender, no meningeal signs. CARDIOVASCULAR: Regular rate and rhythm without murmurs, gallops, or rubs. RESPIRATORY: Clear to auscultation. Breath sounds equal bilaterally. No wheezes , rales, or rhonchi. GASTROINTESTINAL: Abdomen soft, non-tender, nondistended. No hepato-splenomegaly , or palpable masses. No guarding. MUSCULOSKELETAL: Moderate lower extremity edema. No joint tenderness, effusion, or edema noted. No calf tenderness. Posterior tibial pulse and dorsalis pedis pulses not palpable NEUROLOGICAL: Awake and alert. Oriented conversant and appropriate Recent and remote memory intact Speech is clear Reasonable judgment and insight No evidence of anxiety or depression Sensation mildly diminished light touch diffuse in the hands Sensation intact in the lower extremities to light touch Strength is mostly 3+-4/5 hand intrinsics, 4-5/5 proximal upper extremities. Strength is 5/5 in the lower extremities with some difficulty with lower extremity coordination Hoffmans absent bilateral No ankle clonus Plantar neutral bilateral Lab, Micro, Other Results Recent Impressions Lumbar Spine CT 03/29/17 0000 Signed Impressions: Service Date/Time: Wednesday, March 29, 2017 10:07 - CONCLUSION: Extensive degenerative changes throughout the lumbar spine accentuated by scoliosis. There is significant neuroforaminal encroachment as well as changes in the facets Noncontrast CT scan of the abdomen is suggested further evaluate the large apparent cystic mass on the right. Williams Mahajan MD FACR Abdomen/Pelvis CT 03/29/17 0000 Signed Impressions: Service Date/Time: Wednesday, March 29, 2017 15:33 - CONCLUSION: 1. Inflammatory changes about the pancreatic head and in the central mesenteric fat indicating possible acute pancreatitis. No organized fluid collections. 2. Colonic diverticulosis. No evidence of acute diverticulitis. 3. 11 cm calcified cyst in the right kidney slightly smaller than on comparison ultrasound study of 2013. 4. Indeterminate 2.7 cm intermediate density mass in the midpole right kidney with no correlate on ultrasound 2013. May represent a complex cyst or solid mass. This could be further evaluated with renal ultrasound. 5. Diffuse severe arterial calcification. 6. Small bilateral pleural effusions. Gray Jimenez MD Laboratory Tests Test 03/27/17 16:07 03/28/17 04:11 03/29/17 09:40 03/30/17 05:16 Prothrombin Time 13.0 SEC Prothromb Time International Ratio 1.3 RATIO White Blood Count 4.1 TH/MM3 5.5 TH/MM3 Red Blood Count 2.45 MIL/MM3 2.58 MIL/MM3 Hemoglobin 8.4 GM/DL 9.2 GM/DL Hematocrit 25.2 % 27.1 % Mean Corpuscular Volume 102.8 FL 105.0 FL Mean Corpuscular Hemoglobin 34.1 PG 35.5 PG Mean Corpuscular Hemoglobin Concent 33.2 % 33.8 % Red Cell Distribution Width 14.2 % 14.4 % Platelet Count 93 TH/MM3 115 TH/MM3 Mean Platelet Volume 9.9 FL 10.6 FL Neutrophils (%) (Auto) 72.7 % 73.8 % Lymphocytes (%) (Auto) 15.3 % 14.3 % Monocytes (%) (Auto) 9.2 % 7.7 % Eosinophils (%) (Auto) 2.2 % 3.6 % Basophils (%) (Auto) 0.6 % 0.6 % Neutrophils # (Auto) 3.0 TH/MM3 4.0 TH/MM3 Lymphocytes # (Auto) 0.6 TH/MM3 0.8 TH/MM3 Monocytes # (Auto) 0.4 TH/MM3 0.4 TH/MM3 Eosinophils # (Auto) 0.1 TH/MM3 0.2 TH/MM3 Basophils # (Auto) 0.0 TH/MM3 0.0 TH/MM3 CBC Comment AUTO DIFF DIFF FINAL Differential Comment AUTO DIFF CONFIRMED Blood Urea Nitrogen 51 MG/DL 69 MG/DL Creatinine 6.50 MG/DL 10.00 MG/DL Random Glucose 115 MG/DL 102 MG/DL Calcium Level 9.3 MG/DL 9.1 MG/DL Sodium Level 141 MEQ/L 139 MEQ/L Potassium Level 4.6 MEQ/L 5.5 MEQ/L Chloride Level 104 MEQ/L 101 MEQ/L Carbon Dioxide Level 32.2 MEQ/L 28.5 MEQ/L Anion Gap 5 MEQ/L 10 MEQ/L Estimat Glomerular Filtration Rate 8 ML/MIN 5 ML/MIN Stool C. difficile Toxin (PCR) POSITIVE Stl C. difficile Toxin Epiderm 027 PRESUMPTIVE NEGATIVE Medical Decision Making Impression and Plan Impression: 1. Mostly mild to moderate mid to lower lumbar stenosis. This does not appear to be sufficient to account for his recent gait difficulty. 2. Possible cervical myelopathy. Long tract findings may be obscured by his diabetes Reviewed labs for today. Interval improvement in anaemia & thrombocytopenia. Hyperkalemia. Plan: Discussed with patient Recommend MRI of the entire spine to rule out significant spinal cord compression or contusion. He is claustrophobic and will likely need sedation for the study Pato Mccarthy Mar 30, 2017 11:17
[2017-03-30] MEDS: LACTOBACILLUS ACIDOPHILUS TAB PO SCH ×3 (12:05→17:47)
[2017-03-30] MEDS: SODIUM CHLORIDE 0.9% FLUSH 10 ML FLUSH IV FLUSH SCH ×2 (12:26→20:33)
[2017-03-30] MEDS: ALLOPURINOL 100 MG TAB PO SCH (12:27)
[2017-03-30] MEDS: CINACALCET HYDROCHLORIDE 30 MG TAB PO SCH (12:27)
[2017-03-30] MEDS: CARVEDILOL 12.5 MG TAB PO SCH ×2 (12:27→20:33)
[2017-03-30 12:56] VITALS: O2SAT 95
[2017-03-30 13:05] VITALS: BP 129/60; PULSE 75; RESP 18; TEMP 98.7; O2SAT 97
--- NOTE | 2017-03-30 14:40 | HHI.PR ---
Subjective Remarks Follow up for C.difficile, lower extremity weakness, fall, ESRD on HD. The patient reports feeling better today however still with bilateral lower extremity weakness and unable to ambulate independently. He reports low back pain at site of pressure sore. His diarrhea has improved, no bowel movement yet today and only 2 episodes of diarrhea yesterday. Denies any abdominal pain/ nausea/vomiting. He states 1 month ago he was having some diarrhea and his physician gave him a prescription for antibiotics however he only took a few tablets. He has no other medical complaints to report at this time. Objective Vitals Vital Signs Date Time Temp Pulse Resp B/P (MAP) Pulse Ox O2 Delivery O2 Flow Rate FiO2 03/30/17 13:05 98.7 75 18 129/60 (83) 97 03/30/17 12:56 95 21 03/30/17 07:58 Nasal Cannula 2.00 03/30/17 04:47 97.9 62 18 158/72 (100) 100 03/30/17 00:21 99.1 60 20 133/61 (85) 100 03/29/17 21:30 98.7 67 20 131/62 (85) 100 03/29/17 20:00 98 Nasal Cannula 2.00 03/29/17 19:08 98 Nasal Cannula 2.00 21 03/29/17 16:00 97.8 60 18 112/53 (72) 97 I/O 03/29/17 03/29/17 03/29/17 03/30/17 03/30/17 03/30/17 07:00 15:00 23:00 07:00 15:00 23:00 Output Total 1500 ml Balance -1500 ml Hemodialysis 1500 ml Result Diagram: 03/30/17 0516 03/30/17 0516 Imaging Last Impressions Lumbar Spine CT 03/29/17 0000 Signed Impressions: Service Date/Time: Wednesday, March 29, 2017 10:07 - CONCLUSION: Extensive degenerative changes throughout the lumbar spine accentuated by scoliosis. There is significant neuroforaminal encroachment as well as changes in the facets Noncontrast CT scan of the abdomen is suggested further evaluate the large apparent cystic mass on the right. Williams Mahajan MD FACR Abdomen/Pelvis CT 03/29/17 0000 Signed Impressions: Service Date/Time: Wednesday, March 29, 2017 15:33 - CONCLUSION: 1. Inflammatory changes about the pancreatic head and in the central mesenteric fat indicating possible acute pancreatitis. No organized fluid collections. 2. Colonic diverticulosis. No evidence of acute diverticulitis. 3. 11 cm calcified cyst in the right kidney slightly smaller than on comparison ultrasound study of 2013. 4. Indeterminate 2.7 cm intermediate density mass in the midpole right kidney with no correlate on ultrasound 2013. May represent a complex cyst or solid mass. This could be further evaluated with renal ultrasound. 5. Diffuse severe arterial calcification. 6. Small bilateral pleural effusions. Gray Jimneez MD Lower Extremity Ultrasound 03/25/171809 Signed Impressions: Service Date/Time: , March 25, 2017 18:21 - CONCLUSION: 1. Negative for deep venous thrombosis bilateral lower extremities. Dillan Leonard MD Chest X-Ray 03/25/171809 Signed Impressions: Service Date/Time: , March 25, 2017 19:18 - CONCLUSION: Patchy bilateral lower lung infiltrates and possible left pleural effusion. Dillan Leonard MD Objective Remarks GENERAL: Well-nourished, well-developed elderly male patient in [facility]. SKIN: Warm and dry. No rash. Sacral pressure ulcer, stage II, tender to palpation. HEENT: Normocephalic. Atraumatic.Pupils equal and round. Mucous membranes pink and moist. CARDIOVASCULAR: Regular rate and rhythm. S1, S2 noted. 3/6 systolic murmur noted. RESPIRATORY: No accessory muscle use. Clear to auscultation. Breath sounds equal bilaterally. GASTROINTESTINAL: Abdomen soft, non-tender, nondistended. Normoactive bowel sounds x4. MUSCULOSKELETAL: No obvious deformities. Extremities without clubbing, cyanosis , or edema. NEUROLOGICAL: Awake and alert. No obvious cranial nerve deficits. Motor grossly within normal limits. 4/5 muscle strength in bilateral lower extremities , 5/5 strength b/l upper extremities. Normal speech. PSYCHIATRIC: Appropriate mood and affect; insight and judgment normal. Medications and IVs Current Medications Medications (Trade) Dose Ordered Sig/Jamal Route Start Time Stop Time Status Last Admin (NS Flush) 2 ml UNSCH PRN IV FLUSH 03/25/17 22:45 (NS Flush) 2 ml BID IV FLUSH 03/26/17 09:00 03/30/17 12:26 (Zofran Inj) 4 mg Q6H PRN IVP 03/25/17 22:45 (Heparin Inj) 5,000 units Q12H SQ 03/26/17 09:00 03/29/17 22:34 (Tylenol) 650 mg Q6H PRN PO 03/25/17 22:45 ([place] 5-325 Mg) 1 tab Q4H PRN PO 03/25/17 22:45 ([place] 10-325 Mg) 1 tab Q4H PRN PO 03/25/17 22:45 (Danielle-Colace) 1 tab BID PO 03/26/17 09:00 03/28/17 22:24 (Milk Of Magnesia Liq) 30 ml Q12H PRN PO 03/25/17 22:45 03/29/17 05:53 (Senokot) 17.2 mg Q12H PRN PO 03/25/17 22:45 (Dulcolax Supp) 10 mg DAILY PRN RECTAL 03/25/17 22:45 (Lactulose Liq) 30 ml DAILY PRN PO 03/25/17 22:45 (Zyloprim) 100 mg DAILY PO 03/26/17 09:00 03/30/17 12:27 (Coreg) 25 mg BID PO 03/26/17 09:00 03/30/17 12:27 (Sensipar) 30 mg DAILY PO 03/26/17 09:00 03/30/17 12:27 (Duoneb Neb) 1 ampule Q4HR NEB PRN NEB 03/26/17 01:45 (Apresoline) 10 mg Q8HR PO 03/26/17 14:00 03/30/17 14:27 Sodium Chloride 1,000 ml @ 0 mls/hr Q0M PRN OTHER 03/26/17 13:13 (Heparin Inj) 8,000 units UNSCH PRN IV FLUSH 03/26/17 13:15 Sodium Chloride 1,000 ml @ 200 mls/hr Q5H PRN IV 03/26/17 13:13 Sodium Chloride 1,000 ml @ 0 mls/hr Q0M PRN OTHER 03/26/17 13:13 (Mannitol Inj) 12.5 gm UNSCH PRN IV 03/26/17 13:15 Albumin Human 100 ml @ 60 mls/hr UNSCH PRN IV 03/26/17 13:15 12/23/17 08:43 (NS Flush) 5 ml UNSCH PRN IV FLUSH 03/26/17 13:15 (Heparin Inj) UNSCH PRN .XX 03/26/17 13:15 (Gentamicin (Dialysis) Inj) 20 mg UNSCH PRN OTHER 03/26/17 13:15 (Zofran Inj) 4 mg UNSCH PRN IV PUSH 03/26/17 13:15 03/27/17 22:59 (Tylenol) 650 mg UNSCH PRN PO 03/26/17 13:15 (Benadryl) 25 mg UNSCH PRN PO 03/26/17 13:15 (Nitrostat Sl) 0.4 mg UNSCH PRN SL 03/26/17 13:15 (Catapres) 0.1 mg UNSCH PRN PO 03/26/17 13:15 (Epogen Inj) 10,000 units UNSCH PRN IV PUSH 03/26/17 13:15 03/30/17 09:19 (Gelfoam 12 Mm/7 Mm Top) 1 foam UNSCH PRN TOP 03/26/17 13:15 03/30/17 09:18 (Tums Chew) 500 mg Q2H PRN CHEW 03/28/17 09:45 03/28/17 10:16 (Imodium) 2 mg Q6H PRN PO 03/28/17 15:30 03/29/17 10:29 (Lactinex) 1 tab TID PO 03/29/17 13:00 03/30/17 12:26 (Flagyl) 500 mg Q8HR PO 03/29/17 15:00 03/30/17 14:27 (Ativan Inj) 1 mg ONCE PRN IV PUSH 03/30/17 09:00 03/30/17 16:00 A/P Problem List: (1) Recurrent falls ICD Code: R29.6 - Repeated falls (2) ESRD (end stage renal disease) on dialysis ICD Code: N18.6 - End stage renal disease; Z99.2 - Dependence on renal dialysis (3) Lower extremity edema ICD Code: R60.0 - Localized edema (4) HTN (hypertension) ICD Code: I10 - HTN (hypertension) Status: Acute Assessment and Plan 76-year-old male with: Recurrent Falls, Spinal Stenosis: reports multiple near falls after legs "give out" suddenly, no LOC, no head trauma, no injuries as son able to catch him each time. Suspect deconditioning in combination with worsening edema, however need to rule out other etiologies including spinal stenosis. -Consult PT, recommending rehab. CM consulted to assist with discharge planning. -Checked lumbar spine CT which showed moderate spinal stenosis and significant neuroforaminal encroachment -Consulted neurosurgery, recommends C-T-L spine MRI C.Difficile Diarrhea: Patient with multiple episodes of diarrhea, Cdiff PCR positive. -started on Flagyl 500mg po q8h s50ucec and lactinex tid -diarrhea improved Renal Cystic Mass: CT abd/pelvis images reviewed, shows 11 cm calcified cyst in the right kidney slightly smaller than on comparison ultrasound study of 2013. Indeterminate 2.7 cm intermediate density mass in the midpole right kidney with no correlate on ultrasound 2013. May represent a complex cyst or solid mass. This could be further evaluated with renal ultrasound. -Check renal U/S -discussed extensively with the patient, recommended outpatient f/up with urology, patient verbalized understanding ESRD on HD: T//Wed, HD on w/ no complications, +fluid overload on exam , improving. -Cr and K level trending down. -Nephrology following, appreciate recommendations. Hyperkalemia: secondary to above. -Anticipate improvement with hemodialysis. -Monitor potassium intermittently. Lower Extremity Edema: progressive lower extremity edema x 4-5 days, left > right, LE Doppler negative for DVT. BNP 1130. CXR w/ patchy infiltrate, likely small effusion, images reviewed by me. S/p Laskelly in ER. Monitor I/O. -HD for fluid removal as needed. -Edema improved. Aortic valve stenosis: Echo completed revealing EF 55% and severe aortic valve stenosis. Patient states he is aware of stenosis, has been present over 30years. -Outpatient f/up. HTN: BP 190's on arrival. -Continue on Coreg 25mg BID. -Started on Hydralazine 10mg TID, continue. -BP currently well controlled, continue to monitor Anemia: Suspect anemia of chronic disease. -Epogen per nephrology. -Continue to monitor. Thrombocytopenia: Slow downward trend, platelet count dropping from 120 to 113 to 93. -No active bleeding. -Continue to monitor. Macrocytosis: Chronic. B12 647, Folate 12.4. TSH level WNL. ?medication side effect/patient on allopurinol. -Outpatient f/up. 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 Case management to assist with discharge planning, needs placement. Nya Talavera PA-C Mar 30, 2017 2:40 pm
[2017-03-30 15:21] VITALS: BP 131/88; PULSE 82; RESP 18; TEMP 98; O2SAT 95
--- NOTE | 2017-03-30 16:19 | RADRPT ---
EXAM DATE/TIME: 03/30/2017 15:20 [facility] COMPARISON: CT ABDOMEN & PELVIS W/O CONTRAST, March 29, 2017, 15:33. US KIDNEY/RENAL/BLADDER, March 10, 11:36. INDICATIONS : Renal mass seen on prior CT. MEDICAL HISTORY : Hypercholesterolemia. Arthritis. Pilonidial cyst. HTN. Dyspnea. Renal failure. Polycystic kidney di sease. Bilateral gout. Diabetes. Skin cancer. SURGICAL HISTORY : AV fistula. Dialysis. Skin cancer removed. Pilonidial cyst removal. ENCOUNTER: Initial ACUITY: > 1 year PAIN SCORE: Nonresponsive. LOCATION: Bilateral flank MEASUREMENTS: RIGHT KIDNEY: 10.0 x 4.3 x 5.8 cm LEFT KIDNEY: 9.2 x 3.8 x 4.5 cm FINDINGS: RIGHT KIDNEY: There is increased echogenicity of the renal parenchyma. There is no evidence of hydronephrosis. Ther e are multiple cysts throughout the right kidney. The largest cyst measures 11.8 x 10.2 cm in the mid pole. There is a complex cyst with debris. There is a cyst measuring 3.2 cm in the midpole there is a cyst measuring 3.6 cm in the upper pole. These findings are not significantly changed compared to . The large cyst was present at that time. No definite mass is seen. LEFT KIDNEY: There is increased echogenicity of the renal parenchyma. There is no hydronephrosis. There is a cyst along the midpole measuring 3.7 cm. There is a cyst along the midpole measuring 1.9 cm. No significan t change compared to the prior study from 2013. BLADDER: Within normal limits given the degree of distension. CONCLUSION: 1. Bilateral echogenic kidneys characteristic of chronic medical renal disease. 2. Multiple prominent bilateral renal cysts. Not significantly changed compared to the prior exam. 3. No evidence of hydronephrosis. Billy Roberts MD on March 30, 2017 at 16:11 Board Certified Radiologist. This report was verified electronically.
--- NOTE | 2017-03-30 17:08 | RADRPT ---
EXAM DATE/TIME: 03/30/2017 16:03 [facility] COMPARISON: No previous studies available for comparison. INDICATIONS : Weakness. Frequent falls. MEDICAL HISTORY : Renal failure, chronic. Polycystic kidney disease. SURGICAL HISTORY : None. ENCOUNTER: Subsequent ACUITY: 4-6 days PAIN SCORE: 0/10 LOCATION: neck. TECHNIQUE: Multiplanar, multisequence MRI examination of the cervical spine was performed. FINDINGS: VERTEBRAE: Diffusely heterogeneous degenerative bone marrow signal. Vertebral body heights are intact. ALIGNMENT: Loss of normal cervical lordosis. Sagittal alignment is maintained. CORD: Normal configuration and signal. POST FOSSA: The cerebellar tonsils are normal in position. C2-C3: A posterior disc osteophyte complex and bilateral facet arthropathy. Focal degenerative appearing khai tral disc edema. Concentric central canal narrowing to approximately 7 mm. No significant neuroforami nal stenosis. C3-C4: Severe disc space loss with posterior disc osteophytes and bilateral facet arthropathy. Effacement of the anterior thecal sac with central canal measuring approximately 8 mm. Mild bilateral neural shirin inal stenosis. C4-C5: Severe disc space loss with posterior osteophytes and bilateral facet arthropathy. Effacement of the anterior thecal sac with slight flattening of the cervical cord. No signal abnormality. Central canal measures approximately 8 mm. No significant neural foraminal stenosis. C5-C6: Severe disc space loss with bilateral facet arthropathy. Mild effacement of the anterior thecal sac. No significant central canal narrowing. Foramina are patent. C6-C7: Moderate disc space narrowing with endplate Modic change. Posterior disc osteophyte complex with effa cement of the anterior thecal sac. Central canal measures approximately 8 mm. Neuroforamina are paten t bilaterally. C7-T1: Disc space loss with mild posterior disc osteophyte complex and bilateral facet arthropathy. No signi ficant central canal narrowing. CONCLUSION: . 1. Advanced multilevel degenerative spondylosis of the cervical spine with multilevel moderate to sev ere cervical canal stenosis, as above. Scot Guevara MD on March 30, 2017 at 16:58 Board Certified Radiologist. This report was verified electronically.
--- NOTE | 2017-03-30 17:11 | RADRPT ---
EXAM DATE/TIME: 03/30/2017 16:03 [facility] COMPARISON: No previous studies available for comparison. INDICATIONS : Weakness. Frequent falls. MEDICAL HISTORY : Renal failure, chronic. Polycystic kidney disease. SURGICAL HISTORY : None. ENCOUNTER: Subsequent ACUITY: 4-6 days PAIN SCORE: 0/10 LOCATION: mid back. TECHNIQUE: Multiplanar multisequence MRI of the thoracic spine was performed. FINDINGS: VERTEBRA: Normal vertebral body height. Diffusely heterogeneous degenerative marrow signal. ALIGNMENT: Normal. CORD: Normal position and configuration. T1-T2: Moderate to severe disc space loss with posterior disc osteophyte complex. Effacement of the anterior thecal sac with central canal measuring approximately 9 mm. T2-T3: The thecal sac has a normal diameter. No evidence of disc bulge or protrusion. T3-T4: The thecal sac has a normal diameter. No evidence of disc bulge or protrusion. T4-T5: The thecal sac has a normal diameter. No evidence of disc bulge or protrusion. T5-T6: The thecal sac has a normal diameter. No evidence of disc bulge or protrusion. T6-T7: The thecal sac has a normal diameter. No evidence of disc bulge or protrusion. T7-T8: The thecal sac has a normal diameter. No evidence of disc bulge or protrusion. T8-T9: Diffuse disc space loss with posterior disc osteophyte complex. Mild effacement of the anterior theca l sac. No significant central canal narrowing. T9-T10: Diffuse disc space loss with posterior disc osteophyte complex. Very mild effacement of the anterior thecal sac. No significant central canal narrowing. T10-T11: The thecal sac has a normal diameter. No evidence of disc bulge or protrusion. T11-T12: The thecal sac has a normal diameter. No evidence of disc bulge or protrusion. T12-L1: The thecal sac has a normal diameter. No evidence of disc bulge or protrusion. CONCLUSION: 1. Multilevel degenerative spondylosis of the thoracic spine with mild to moderate central canal sten osis at T1-2. Scot Guevara MD on March 30, 2017 at 17:06 Board Certified Radiologist. This report was verified electronically.
--- NOTE | 2017-03-30 17:15 | RADRPT ---
EXAM DATE/TIME: 03/30/2017 16:03 [facility] COMPARISON: No previous studies available for comparison. INDICATIONS : Weakness. Frequent falls. MEDICAL HISTORY : Renal failure, chronic. Polycystic kidney disease. SURGICAL HISTORY : None. ENCOUNTER: Subsequent ACUITY: 4-6 days PAIN SCORE: 0/10 LOCATION: low back. TECHNIQUE: Multiplanar multisequence MRI of the lumbar spine was performed without contrast. FINDINGS: Alignment: Loss of lumbar lordosis is noted. AP alignment is well maintained without listhesis. Osseous structures and facet joints: Vertebral bodies are intact without evidence of acute fracture deformity. Unke-rb-gtybdyfd facet arth ropathy is evident at L4-5 and L5-S1. Degenerative endplate changes are seen throughout the lumbar spine. Intervertebral disc spaces: Degenerative disc disease ranging from mild to severe is noted. L1-2: Mild degenerative disease is noted. Small Schmorl's node is identified extending through the patel perior endplate of L2. There is no evidence of epidural or neural foraminal disc herniation. L2-3: Moderate degenerative disease with disc space narrowing and reactive endplate changes. Mild bro ad-based disc osteophyte complex is seen along the posterior annular margin. There is mild epidural e ffacement. Mild bilateral foraminal encroachment from bulging disc is noted. L3-4: Mild degenerative disease. There is disc space narrowing as well as mild broad-based posterior annular bulging. There is no evidence of disc herniation, spinal stenosis or significant foraminal en croachment. L4-5: Moderate to severe degenerative disc disease is noted. There is asymmetric disc space narrowing with moderate stenosis of the right neural foramen. Posterior disc osteophyte complex is identified causing anterior epidural effacement but no significant spinal stenosis. L5-S1: Mild to moderate degenerative disc disease with disc space narrowing. There is posterior annul ar bulging without significant spinal stenosis. Mild to moderate left foraminal encroachment is noted . Neurologic structures: No evidence of significant spinal stenosis. Miscellaneous: Portable renal cysts are seen bilaterally. CONCLUSION: 1. No acute bony abnormality or disc herniation 2. Moderate to severe degenerative disc disease. 3. Moderate right foraminal stenosis at L4-5 Ronald Lott MD on March 30, 2017 at 17:00 Board Certified Radiologist. This report was verified electronically.
[2017-03-30 20:09] VITALS: BP 127/64; PULSE 94; RESP 18; TEMP 98.4; O2SAT 97
[2017-03-31] VITALS (7 sets, daily range): BP systolic 117–161; BP diastolic 57–86; PULSE 69–86; RESP 16–18; TEMP 98.1–98.7; O2SAT 94–98
[2017-03-31] MEDS: hydrALAZINE HCL 10 MG TAB PO SCH ×3 (05:09→21:22)
[2017-03-31] MEDS: metroNIDAZOLE 500 MG TAB PO SCH ×3 (05:09→21:22)
[2017-03-31] MEDS ORDERED: LACT PO (08:27)
[2017-03-31] MEDS ORDERED: METR-1 PO (08:27)
[2017-03-31] MEDS: DOCUSATE SODIUM 50 MG/SENNA 8.6 MG TAB PO SCH ×2 (09:00→21:00)
[2017-03-31] MEDS: ALLOPURINOL 100 MG TAB PO SCH (10:22)
[2017-03-31] MEDS: LACTOBACILLUS ACIDOPHILUS TAB PO SCH ×3 (10:22→16:37)
[2017-03-31] MEDS: CINACALCET HYDROCHLORIDE 30 MG TAB PO SCH (10:22)
[2017-03-31] MEDS: CARVEDILOL 12.5 MG TAB PO SCH ×2 (10:22→21:32)
[2017-03-31] MEDS: SODIUM CHLORIDE 0.9% FLUSH 10 ML FLUSH IV FLUSH SCH ×2 (10:23→21:24)
[2017-03-31] MEDS: HEPARIN SODIUM - SQ 10,000 UNITS/ML VIAL SQ SCH ×2 (10:23→21:24)
--- NOTE | 2017-03-31 11:05 | HHI.PR ---
Subjective Remarks Follow up for C.difficile, bilateral upper and lower extremity weakness, spinal stenosis, fall, ESRD on HD. The patient reports continued weakness of his arms and legs. Discussed results of cervical spine MRI showing stenosis. Patient does report intermittent neck pain recently. He states he has noticed his arms getting weaker with occasional numbness. His diarrhea has improved, no episodes yesterday or today. Denies any abdominal pain, nausea/vomiting. He has no other medical complaints at this time. Objective Vitals Vital Signs Date Time Temp Pulse Resp B/P (MAP) Pulse Ox O2 Delivery O2 Flow Rate FiO2 03/31/17 08:13 98.1 71 18 161/70 (100) 94 03/31/17 04:17 98.1 73 17 144/65 (91) 96 03/30/17 20:09 98.4 94 18 127/64 (85) 97 03/30/17 15:21 98.0 82 18 131/88 (102) 95 03/30/17 13:05 98.7 75 18 129/60 (83) 97 03/30/17 12:56 95 21 I/O 03/30/17 03/30/17 03/30/17 03/31/17 03/31/17 03/31/17 07:00 15:00 23:00 07:00 15:00 23:00 Output Total 1500 ml Balance -1500 ml Hemodialysis 1500 ml # Bowel Movements 1 Result Diagram: 03/30/17 0516 03/30/17 0516 Imaging Last Impressions Thoracic Spine MRI 03/30/17 0000 Signed Impressions: Service Date/Time: Thursday, March 30, 2017 16:03 - CONCLUSION: 1. Multilevel degenerative spondylosis of the thoracic spine with mild to moderate central canal stenosis at T1-2. Scot Guevara MD Renal Ultrasound 03/30/17 0000 Signed Impressions: Service Date/Time: Thursday, March 30, 2017 15:20 - CONCLUSION: 1. Bilateral echogenic kidneys characteristic of chronic medical renal disease. 2. Multiple prominent bilateral renal cysts. Not significantly changed compared to the prior exam. 3. No evidence of hydronephrosis. Billy Roberts MD Lumbar Spine MRI 03/30/17 0000 Signed Impressions: Service Date/Time: Thursday, March 30, 2017 16:03 - CONCLUSION: 1. No acute bony abnormality or disc herniation 2. Moderate to severe degenerative disc disease. 3. Moderate right foraminal stenosis at L4-5 Ronald Lott MD Cervical Spine MRI 03/30/17 0000 Signed Impressions: Service Date/Time: Thursday, March 30, 2017 16:03 - CONCLUSION: . 1. Advanced multilevel degenerative spondylosis of the cervical spine with multilevel moderate to severe cervical canal stenosis, as above. Scot Guevara MD Lumbar Spine CT 03/29/17 0000 Signed Impressions: Service Date/Time: Wednesday, March 29, 2017 10:07 - CONCLUSION: Extensive degenerative changes throughout the lumbar spine accentuated by scoliosis. There is significant neuroforaminal encroachment as well as changes in the facets Noncontrast CT scan of the abdomen is suggested further evaluate the large apparent cystic mass on the right. Williams Mahajan MD FACR Abdomen/Pelvis CT 03/29/17 0000 Signed Impressions: Service Date/Time: Wednesday, March 29, 2017 15:33 - CONCLUSION: 1. Inflammatory changes about the pancreatic head and in the central mesenteric fat indicating possible acute pancreatitis. No organized fluid collections. 2. Colonic diverticulosis. No evidence of acute diverticulitis. 3. 11 cm calcified cyst in the right kidney slightly smaller than on comparison ultrasound study of 2013. 4. Indeterminate 2.7 cm intermediate density mass in the midpole right kidney with no correlate on ultrasound 2014. May represent a complex cyst or solid mass. This could be further evaluated with renal ultrasound. 5. Diffuse severe arterial calcification. 6. Small bilateral pleural effusions. Gray Jimenez MD Lower Extremity Ultrasound 03/25/[id number] Signed Impressions: Service Date/Time: March 18:21 - CONCLUSION: 1. Negative for deep venous thrombosis bilateral lower extremities. Dillan Leonard MD Chest X-Ray [id number]/25/171809 Signed Impressions: Service Date/Time: March 19:18 - CONCLUSION: Patchy bilateral lower lung infiltrates and possible left pleural effusion. Dillan Leonard MD Objective Remarks GENERAL: Well-nourished, well-developed elderly male patient in [facility]. SKIN: Warm and dry. No rash. Sacral pressure ulcer, stage II, tender to palpation. HEENT: Normocephalic. Atraumatic.Pupils equal and round. Mucous membranes pink and moist. CARDIOVASCULAR: Regular rate and rhythm. S1, S2 noted. 3/6 systolic murmur noted. RESPIRATORY: No accessory muscle use. Clear to auscultation. Breath sounds equal bilaterally. GASTROINTESTINAL: Abdomen soft, non-tender, nondistended. Normoactive bowel sounds x4. MUSCULOSKELETAL: No obvious deformities. Extremities without clubbing, cyanosis , or edema. NEUROLOGICAL: Awake and alert. No obvious cranial nerve deficits. Motor grossly within normal limits. 4/5 muscle strength in bilateral upper and lower extremities. Normal speech. PSYCHIATRIC: Appropriate mood and affect; insight and judgment normal. Medications and IVs Current Medications Medications (Trade) Dose Ordered Sig/Jamal Route Start Time Stop Time Status Last Admin (NS Flush) 2 ml UNSCH PRN IV FLUSH 03/25/17 22:45 (NS Flush) 2 ml BID IV FLUSH 03/26/17 09:00 03/31/17 10:23 (Zofran Inj) 4 mg Q6H PRN IVP 03/25/17 22:45 (Heparin Inj) 5,000 units Q12H SQ 03/26/17 09:00 03/31/17 10:23 (Tylenol) 650 mg Q6H PRN PO 03/25/17 22:45 (Ronceverte 5-325 Mg) 1 tab Q4H PRN PO 03/25/17 22:45 (Ronceverte 10-325 Mg) 1 tab Q4H PRN PO 03/25/17 22:45 (Danielle-Colace) 1 tab BID PO 03/26/17 09:00 03/28/17 22:24 (Milk Of Magnesia Liq) 30 ml Q12H PRN PO 03/25/17 22:45 03/29/17 05:53 (Senokot) 17.2 mg Q12H PRN PO 03/25/17 22:45 (Dulcolax Supp) 10 mg DAILY PRN RECTAL 03/25/17 22:45 (Lactulose Liq) 30 ml DAILY PRN PO 03/25/17 22:45 (Zyloprim) 100 mg DAILY PO 03/26/17 09:00 03/31/17 10:22 (Coreg) 25 mg BID PO 03/26/17 09:00 03/31/17 10:22 (Sensipar) 30 mg DAILY PO 03/26/17 09:00 03/31/17 10:22 (Duoneb Neb) 1 ampule Q4HR NEB PRN NEB 03/26/17 01:45 (Apresoline) 10 mg Q8HR PO 03/26/17 14:00 03/31/17 05:09 Sodium Chloride 1,000 ml @ 0 mls/hr Q0M PRN OTHER 03/26/17 13:13 (Heparin Inj) 8,000 units UNSCH PRN IV FLUSH 03/26/17 13:15 Sodium Chloride 1,000 ml @ 200 mls/hr Q5H PRN IV 03/26/17 13:13 Sodium Chloride 1,000 ml @ 0 mls/hr Q0M PRN OTHER 03/26/17 13:13 (Mannitol Inj) 12.5 gm UNSCH PRN IV 03/26/17 13:15 Albumin Human 100 ml @ 60 mls/hr UNSCH PRN IV 03/26/17 13:15 03/27/17 08:43 (NS Flush) 5 ml UNSCH PRN IV FLUSH 03/26/17 13:15 (Heparin Inj) UNSCH PRN .XX 03/26/17 13:15 (Gentamicin (Dialysis) Inj) 20 mg UNSCH PRN OTHER 03/26/17 13:15 (Zofran Inj) 4 mg UNSCH PRN IV PUSH 03/26/17 13:15 03/27/17 22:59 (Tylenol) 650 mg UNSCH PRN PO 03/26/17 13:15 (Benadryl) 25 mg UNSCH PRN PO 03/26/17 13:15 (Nitrostat Sl) 0.4 mg UNSCH PRN SL 03/26/17 13:15 (Catapres) 0.1 mg UNSCH PRN PO 03/26/17 13:15 (Epogen Inj) 10,000 units UNSCH PRN IV PUSH 03/26/17 13:15 03/30/17 09:19 (Gelfoam 12 Mm/7 Mm Top) 1 foam UNSCH PRN TOP 03/26/17 13:15 03/30/17 09:18 (Tums Chew) 500 mg Q2H PRN CHEW 03/28/17 09:45 03/28/17 10:16 (Imodium) 2 mg Q6H PRN PO 03/28/17 15:30 03/29/17 10:29 (Lactinex) 1 tab TID PO 03/29/17 13:00 03/31/17 10:22 (Flagyl) 500 mg Q8HR PO 03/29/17 15:00 03/31/17 05:09 A/P Problem List: (1) Recurrent falls ICD Code: R29.6 - Repeated falls (2) ESRD (end stage renal disease) on dialysis ICD Code: N18.6 - End stage renal disease; Z99.2 - Dependence on renal dialysis (3) Lower extremity edema ICD Code: R60.0 - Localized edema (4) HTN (hypertension) ICD Code: I10 - HTN (hypertension) Status: Acute Assessment and Plan 76-year-old male with: Recurrent Falls, Cervical Spinal Stenosis: reports 3 recent falls after legs "give out" suddenly, no LOC, no head trauma, no injuries as son able to catch him each time. Suspect deconditioning in combination with worsening edema, however need to rule out other etiologies including spinal stenosis. -Consult PT, recommending rehab. CM consulted to assist with discharge planning. -Checked lumbar spine CT which showed moderate spinal stenosis and significant neuroforaminal encroachment -Consulted neurosurgery, recommended C-T-L spine MRI -C-spine MRI showed multilevel moderate to severe cervical canal stenosis -Discussed with neurosurgeon Dr. Fragoso, patient likely needs surgical intervention, will admit to inpatient -Checking C-spine CT to rule out C2 fracture C.Difficile Diarrhea: Patient with multiple episodes of diarrhea, Cdiff PCR positive. -started on Flagyl 500mg po q8h [id number] (stop date 04/12) and lactinex tid -diarrhea improved Renal Cystic Mass: CT abd/pelvis images reviewed, shows 11 cm calcified cyst in the right kidney slightly smaller than on comparison ultrasound study of 2013. Indeterminate 2.7 cm intermediate density mass in the midpole right kidney with no correlate on ultrasound 2014. May represent a complex cyst or solid mass. This could be further evaluated with renal ultrasound. -Checked renal U/S which showed b/l echogenic kidneys characteristic of chronic medical renal disease; multiple b/l renal cysts not significant changed compared to prior exam -continue outpatient f/up ESRD on HD: T//Sat, HD on w/ no complications, +fluid overload on exam , improving. -Nephrology following, appreciate recommendations. Hyperkalemia: secondary to above. -Anticipate improvement with hemodialysis. -Monitor potassium intermittently. Lower Extremity Edema: progressive lower extremity edema x 4-5 days, left > right, LE Doppler negative for DVT. BNP 1130. CXR w/ patchy infiltrate, likely small effusion, images reviewed by me. S/p Lasix in ER. Monitor I/O. -HD for fluid removal as needed. -Edema improved. Aortic valve stenosis: Echo completed revealing EF 55% and severe aortic valve stenosis. Patient states he is aware of stenosis, has been present over 30years. -Outpatient f/up. HTN: BP 190's on arrival. -Continue on Coreg 25mg BID. -Started on Hydralazine 10mg TID, continue. -BP currently well controlled, continue to monitor Anemia: Suspect anemia of chronic disease. -Epogen per nephrology. -Continue to monitor. Thrombocytopenia: Slow downward trend, platelet count dropping from 120 to 113 to 93. -No active bleeding. -Continue to monitor. Macrocytosis: Chronic. B12 647, Folate 12.4. TSH level WNL. ?medication side effect/patient on allopurinol. -Outpatient f/up. DVT Prophylaxis: Heparin sq Discharge Planning Patient likely needs cervical spine surgery per Dr. Fragoso. Will admit to inpatient. Will need rehab placement at discharge. Nya Talavera PA-C Mar 31, 2017 11:05
[2017-03-31 11:50] LABS: BICARBONATE 32.2 MEQ/L (21.0-32.0); CALCIUM 9.3 MG/DL (8.5-10.1); CREATININE 8.07 MG/DL (0.60-1.30)
--- NOTE | 2017-03-31 12:00 | PD.WCN.NOT ---
Wound Consult Description: Wound consult ordered by Zana LOPEZ for sacrum Communicated with: Ansley CAMPA G pod, Zana LOPEZ Recommendation: 1)Please reposition patient every 2 hours for offloading and comfort. 2) Cleanse buttocks and sacral area with warm soap and warm,rinse and pat dry. 3)Apply Calazime and Antifungal cream in 50/50 mix apply to buttocks, perineal area and any reddened areas BID or as needed for incontinence. Additional Information: Patient was seen today in G-pod by designer writer for sacrum wound.Ansley CAMPA G-pod present with designer writer for assistance.Min assist needed for repositioning to left side.Brief removed to exposed reddened/patchy blanchable buttocks with unstageable moisture/pressure related injury to coccyx measuring 0.3cm 0.2cm x adhered yellow slough.Erythema noted to imcki wound ~0.2cm circular no odor or drainage noted.Buttocks/Coccyx cleansed with warm soap and water pat dry.Calazime and antifungal unavailable at this time Ansley CAMPA will apply to reddened area/coccyx when available.Moisture control pad placed under patient.Patient left positioned on left side for comfort. Tone Eddy [facility] Mar 31, 2017 12:00
--- NOTE | 2017-03-31 13:36 | RADRPT ---
EXAM DATE/TIME: 03/31/2017 12:15 [place] COMPARISON: No previous studies available for comparison. INDICATIONS : Falls, evaluate for fracture. RADIATION DOSE: 22.92 CTDIvol (mGy) MEDICAL HISTORY : Cardiovascular disease. Hypertension. Renal failure, chronic. SURGICAL HISTORY : Av fistula ENCOUNTER: Initial ACUITY: 1 week PAIN SCALE: 8/10 LOCATION: neck TECHNIQUE: Volumetric scanning of the cervical spine was performed. Multiplanar reconstructions in the sagittal, coronal and oblique axial planes were performed. Using automated exposure control and adjustment o f the mA and/or kV according to patient size, radiation dose was kept as low as reasonably achievable to obtain optimal diagnostic quality images. DICOM format image data is available electronically f or review and comparison. FINDINGS: Alignment: Grade 1 anterolisthesis is noted of C2 on C3 and C7 on T1. There is loss of normal lordosis with reve rsal of curvature. Osseous structures and facet joints: There is no evidence of acute fracture. Significant degenerative disease is seen along the vertebral bodies with marginal spondylosis and reactive endplate changes. Moderate to severe bilateral facet arthropathy is noted. No significant changes are noted at C2-3, C3 -4, C4-5 and C7-T1. Intervertebral disc spaces: Severe degenerative disc disease is noted. C2-3: Severe degenerative disease with marked disc space narrowing and endplate sclerosis. There is no evid ence of focal disc herniation, significant spinal stenosis or foraminal encroachment. C3-4: Severe degenerative disc disease with significant endplate eburnation and partial ankylosis. There is no evidence of focal disc herniation, foraminal encroachment or significant spinal stenosis. C4-5: Severe degenerative disc disease with collapse of the disc, marginal spondylosis and partial ankylosi s. Mild left foraminal encroachment is noted due to marginal spurring. There is no significant spinal stenosis or evidence of acute disc herniation. C5-6: Severe degenerative disc disease with collapse of the disc and endplate eburnation. There is marginal spondylosis and partial ankylosis. There is no evidence of disc herniation or significant foraminal encroachment. C6-7: Severe degenerative disc disease with collapse of the disc and endplate eburnation. There is no evide nce of focal disc herniation, significant foraminal encroachment or spinal stenosis. C7-T1: Moderate severe degenerative disc disease with significant disc space narrowing. There is no focal di sc herniation, foraminal encroachment spinal stenosis. T1-2: Severe degenerative disc disease with collapse of the disc, endplate eburnation and significant subch ondral sclerosis. Neurologic structures: No evidence of spinal cord compression, significant spinal stenosis or nerve root compression. CONCLUSION: 1. Degenerative anterolisthesis at C2-3 and C7-T1 secondary to facet arthropathy. 2. Severe degenerative disc disease as described. 3. No evidence of focal disc herniation, significant spinal stenosis, foraminal encroachment or acute fracture Ronald Lott MD on March 31, 2017 at 13:19 Board Certified Radiologist. This report was verified electronically.
[2017-03-31] MEDS: LOPERAMIDE HCL 2 MG CAP PO PRN (16:37)
--- NOTE | 2017-03-31 17:44 | HHI.NPPN ---
Subjective History of Present Illness 76-year-old male with past medical history of hypertension, hyperlipidemia, diabetes mellitus controlled on diet, history of end-stage renal disease on hemodialysis three times per week and chronic anemia who came to the hospital with complaint of swelling and weakness in the leg. I was called to see the patient for the management of dialysis. The patient has been on hemodialysis Wednesday, and Wednesday. Additional Remarks Patient is alert, no SOB,has mild lower back pain and neck pain, no SOB. Review of Systems General Constitutional: Fatigue Cardiovascular Cardiac: Edema, SNOW Objective Data Data 03/31/17 04/01/17 19:00 07:00 # Voids 2 Vital Signs Date Time Temp Pulse Resp B/P (MAP) Pulse Ox O2 Delivery O2 Flow Rate FiO2 03/31/17 16:00 98.4 80 18 142/86 (104) 96 03/31/17 13:00 98.7 69 18 141/60 (87) 96 03/31/17 11:35 Room Air 03/31/17 11:23 98.5 74 18 117/57 (77) 94 03/31/17 08:13 98.1 71 18 161/70 (100) 94 03/31/17 04:17 98.1 73 17 144/65 (91) 96 03/30/17 20:09 98.4 94 18 127/64 (85) 97 -: 03/30/17 0516 03/31/17 1102 Physical Exam General Appearance: No Acute Distress, Comfortable Eyes Eye Exam: Pupils Equal Throat Throat Exam: Oral Mucosa [place] & Moist Neck Neck Exam: Neck Supple Pulmonary Resp Exam: Breath Sounds Equal, No Distress, Rhonchi, Decreased Bases Cardiology CV Exam: Regular, Normal Sinus Rhythm Gastrointestinal/Abdomen GI Exam: Soft, Non-Tender, Bowel Sounds Present Extremeties Extremities Exam: Moderate Edema, Pitting Edema Neurologic Neuro Exam: Alert, Awake, Oriented Psychiatric Psych Exam: Appropriate Responses Assessment/Plan Assessment Summary: Fluid/Volume Overload, Hypertension, End Stage Renal Disease Problem List: (1) Diabetes mellitus ICD Codes: E11.9 - Diabetes mellitus Status: Chronic (2) Hypertension ICD Codes: I10 - Hypertension Status: Chronic (3) Hyperlipidemia ICD Codes: E78.5 - Hyperlipidemia Status: Chronic (4) Anemia ICD Codes: D64.9 - Anemia Status: Acute (5) CKD (chronic kidney disease) stage V requiring chronic dialysis ICD Codes: N18.6 - CKD (chronic kidney disease) stage V requiring chronic dialysis; Z99.2 - Dependence on renal dialysis Status: Chronic (6) Recurrent falls ICD Codes: R29.6 - Repeated falls (7) Lower extremity edema ICD Codes: R60.0 - Localized edema Plan Patient has been on HD 3 times a week, TTS. Admitted with leg edema and recurrent falling. Patient is now on HD, removing 3 liters. Told to restrict salt and fluid intake. BP is better now. Hgb. decreased, no active bleeding, on Epogen. Will need to go to Rehab, to get PT. Continue HD, TTS. Follow up Hgb is stable. Neurosurgery consulted. CT and MRI of spine noted, Has Cervical stenosis, neurosurgery following. On PO Flagyl for C.Difficile. HD will be in AM. Quiana Mayers MD Mar 31, 2017 17:44
[2017-04-01] VITALS (13 sets, daily range): BP systolic 128–147; BP diastolic 59–78; PULSE 58–95; RESP 16–18; TEMP 97.7–98.9; O2SAT 93–97
[2017-04-01] MEDS: hydrALAZINE HCL 10 MG TAB PO SCH ×3 (05:40→21:15)
[2017-04-01] MEDS: metroNIDAZOLE 500 MG TAB PO SCH ×3 (05:40→21:15)
[2017-04-01 06:21] LABS: AUTOMATED NEUTROPHIL # 4.7 TH/MM3 (1.8-7.7); BASOPHIL % 0.6 % (0.0-2.0); EOSINOPHIL # 0.2 TH/MM3 (0-0.4); EOSINOPHIL % 3.8 % (0.0-4.0); HEMATOCRIT 29.3 % (39.0-51.0); HEMOGLOBIN 9.9 GM/DL (13.0-17.0); LYMPH % 13.5 % (9.0-44.0); LYMPHOCYTE # 0.9 TH/MM3 (1.0-4.8); MEAN CELL VOLUME 104.1 FL (80.0-100.0); MEAN CORPUSCULAR HEMOGLOBIN 35.1 PG (27.0-34.0); MEAN CORPUSCULAR HGB CONC 33.8 % (32.0-36.0); MEAN PLATELET VOLUME 10.5 FL (7.0-11.0); MONO % 9.3 % (0.0-8.0); MONOCYTE # 0.6 TH/MM3 (0-0.9); NEUT % 72.8 % (16.0-70.0); PLATELET COUNT 146 TH/MM3 (150-450); RED BLOOD COUNT 2.81 MIL/MM3 (4.50-5.90); RED CELL DISTRIBUTION WIDTH 14.7 % (11.6-17.2); WHITE BLOOD COUNT 6.5 TH/MM3 (4.0-11.0)
[2017-04-01 06:54] LABS: ALBUMIN 2.7 GM/DL (3.4-5.0); ALKALINE PHOSPHATASE 66 U/L (45-117); ALT (GPT) 12 U/L (12-78); AST (GOT) 10 U/L (15-37); BICARBONATE 31.7 MEQ/L (21.0-32.0); BLOOD UREA NITROGEN 53 MG/DL (7-18); CALCIUM 9.5 MG/DL (8.5-10.1); CHLORIDE 102 MEQ/L (98-107); CREATININE 9.57 MG/DL (0.60-1.30); GLOMERULAR FILTRATION RATE 5 ML/MIN (>89); GLUCOSE,RANDOM 99 MG/DL (74-106); SODIUM (NA) 142 MEQ/L (136-145); TOTAL BILIRUBIN ADULT 0.6 MG/DL (0.2-1.0); TOTAL PROTEIN 5.9 GM/DL (6.4-8.2)
[2017-04-01] MEDS: HEPARIN SODIUM - SQ 10,000 UNITS/ML VIAL SQ SCH (07:54)
[2017-04-01] MEDS: SODIUM CHLORIDE 0.9% FLUSH 10 ML FLUSH IV FLUSH SCH ×2 (07:59→21:15)
[2017-04-01] MEDS: LACTOBACILLUS ACIDOPHILUS TAB PO SCH ×3 (08:00→18:04)
[2017-04-01] MEDS: ALLOPURINOL 100 MG TAB PO SCH (08:00)
[2017-04-01] MEDS: CINACALCET HYDROCHLORIDE 30 MG TAB PO SCH (08:01)
[2017-04-01] MEDS: CARVEDILOL 12.5 MG TAB PO SCH ×2 (08:01→21:15)
[2017-04-01] MEDS: DOCUSATE SODIUM 50 MG/SENNA 8.6 MG TAB PO SCH ×2 (08:01→21:00)
--- NOTE | 2017-04-01 09:21 | HHI.PR ---
Subjective Remarks Follow-up neck pain, C. difficile diarrhea, renal failure. The patient reports ongoing neck pain. States that he is scheduled for surgery at 3:00 this afternoon. He is refusing dialysis today stating "I'm dehydrated, I don't need them to take any fluid". Objective Vitals Vital Signs Date Time Temp Pulse Resp B/P (MAP) Pulse Ox O2 Delivery O2 Flow Rate FiO2 04/01/17 08:34 97.7 95 18 142/72 (95) 97 04/01/17 06:19 98.4 84 18 128/59 (82) 95 04/01/17 01:52 98.2 87 16 129/63 (85) 94 03/31/17 20:35 98.4 86 16 126/58 (80) 98 03/31/17 20:02 98 Room Air 03/31/17 17:47 95 21 03/31/17 16:00 98.4 80 18 142/86 (104) 96 03/31/17 13:00 98.7 69 18 141/60 (87) 96 03/31/17 11:35 Room Air 03/31/17 11:23 98.5 74 18 117/57 (77) 94 I/O 03/31/17 03/31/17 03/31/17 04/01/17 04/01/17 04/01/17 07:00 15:00 23:00 07:00 15:00 23:00 Intake Total 240 ml Balance 240 ml Intake Oral 240 ml # Voids 2 # Bowel Movements 1 Result Diagram: 04/01/17 0544 04/01/17 0544 Imaging Last Impressions Cervical Spine CT 03/31/17 0000 Signed Impressions: Service Date/Time: Friday, March 31, 2017 12:15 - CONCLUSION: 1. Degenerative anterolisthesis at C2-3 and C7-T1 secondary to facet arthropathy. 2. Severe degenerative disc disease as described. 3. No evidence of focal disc herniation, significant spinal stenosis, foraminal encroachment or acute fracture Ronald Lott MD Thoracic Spine MRI 03/30/17 0000 Signed Impressions: Service Date/Time: Thursday, March 30, 2017 16:03 - CONCLUSION: 1. Multilevel degenerative spondylosis of the thoracic spine with mild to moderate central canal stenosis at T1-2. Scot Guevara MD Renal Ultrasound 03/30/17 0000 Signed Impressions: Service Date/Time: Thursday, March 30, 2017 15:20 - CONCLUSION: 1. Bilateral echogenic kidneys characteristic of chronic medical renal disease. 2. Multiple prominent bilateral renal cysts. Not significantly changed compared to the prior exam. 3. No evidence of hydronephrosis. Billy Roberts MD Lumbar Spine MRI 03/30/17 0000 Signed Impressions: Service Date/Time: Thursday, March 30, 2017 16:03 - CONCLUSION: 1. No acute bony abnormality or disc herniation 2. Moderate to severe degenerative disc disease. 3. Moderate right foraminal stenosis at L4-5 Ronald Lott MD Cervical Spine MRI 03/30/17 0000 Signed Impressions: Service Date/Time: Thursday, March 30, 2017 16:03 - CONCLUSION: . 1. Advanced multilevel degenerative spondylosis of the cervical spine with multilevel moderate to severe cervical canal stenosis, as above. Scot Guevara MD Lumbar Spine CT 03/29/17 0000 Signed Impressions: Service Date/Time: Wednesday, March 29, 2017 10:07 - CONCLUSION: Extensive degenerative changes throughout the lumbar spine accentuated by scoliosis. There is significant neuroforaminal encroachment as well as changes in the facets Noncontrast CT scan of the abdomen is suggested further evaluate the large apparent cystic mass on the right. Williams Mahajan MD FACR Abdomen/Pelvis CT 03/29/17 0000 Signed Impressions: Service Date/Time: Wednesday, March 29, 2017 15:33 - CONCLUSION: 1. Inflammatory changes about the pancreatic head and in the central mesenteric fat indicating possible acute pancreatitis. No organized fluid collections. 2. Colonic diverticulosis. No evidence of acute diverticulitis. 3. 11 cm calcified cyst in the right kidney slightly smaller than on comparison ultrasound study of 2013. 4. Indeterminate 2.7 cm intermediate density mass in the midpole right kidney with no correlate on ultrasound 2014. May represent a complex cyst or solid mass. This could be further evaluated with renal ultrasound. 5. Diffuse severe arterial calcification. 6. Small bilateral pleural effusions. Gray Jimenez MD Lower Extremity Ultrasound 03/25/17 1810 Signed Impressions: Service Date/Time: March 18:21 - CONCLUSION: 1. Negative for deep venous thrombosis bilateral lower extremities. Dillan Leonard MD Chest X-Ray 03/25/17 1810 Signed Impressions: Service Date/Time: March 19:18 - CONCLUSION: Patchy bilateral lower lung infiltrates and possible left pleural effusion. Dillan Leonard MD Objective Remarks General: Elderly male in no acute distress. Heart: Regular rate and rhythm. No murmur. Lungs: Clear to auscultation bilaterally. No wheezes, rales, or rhonchi. Breathing is nonlabored. Abdomen: Soft, nontender, nondistended. Extremities: No lower extremity edema. Psych: Alert and oriented. Procedures None Urinary Catheter: No Vascular Central Line Catheter: No A/P Problem List: (1) Recurrent falls ICD Code: R29.6 - Repeated falls (2) ESRD (end stage renal disease) on dialysis ICD Code: N18.6 - End stage renal disease; Z99.2 - Dependence on renal dialysis (3) Lower extremity edema ICD Code: R60.0 - Localized edema (4) HTN (hypertension) ICD Code: I10 - HTN (hypertension) Status: Acute Assessment and Plan 1. Recurrent falls, cervical spinal stenosis: Appreciate neurosurgery recommendations. Planning for surgery this afternoon. 2. C. difficile diarrhea: Patient states that the diarrhea is improving. Continue Flagyl (stop date 04/12/17). 3. Renal cystic mass: Follow-up outpatient. Renal ultrasound showed bilateral echogenic kidneys characteristic of chronic medical renal disease, multiple bilateral renal cysts. 4. End-stage renal disease: Hemodialysis Wednesday//Wednesday per nephrology. Patient is refusing dialysis today stating that he is dehydrated. I spoke with him at length regarding the importance of having dialysis. 5. Aortic valve stenosis: Echocardiogram shows ejection fraction 55% with severe aortic valve stenosis. Outpatient follow-up. The patient indicates that he is aware of the stenosis. 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 6. Hypertension: Continue Coreg, hydralazine. 7. Anemia, likely anemia of chronic disease: Epogen per nephrology. 8. Thrombocytopenia: No apparent active bleeding. Monitor labs. 9. Macrocytosis: Chronic. Possibly medication side effect. Follow-up as outpatient. 10. DVT prophylaxis: Heparin. Due to the patient's age and chronic medical problems (including aortic stenosis ), he is at increased risk for surgery. Will consult cardiology for preoperative evaluation. González Olivera MD Apr 01, 2017 09:21
[2017-04-01] MEDS ORDERED: HEPARIN-NS/PF INJ 1,000 ML ONE (14:12)
[2017-04-01] MEDS ORDERED: MIDAZOLAM HCL 2 MG/2 ML VIAL ONE (14:13)
--- NOTE | 2017-04-01 15:39 | MB ---
cc: JEFFREY WEST DO DATE OF CONSULTATION: 04/01/2017 REASON FOR CONSULTATION: Aortic stenosis for preoperative evaluation. HISTORY OF PRESENT ILLNESS Alvaro Young is a pleasant 76-year-old male who originally presented to [facility] emergency room on March 25, 2017 due to a fall. He states that he had opened his garage door and was attempting to throw something out and was holding onto the door knob, that as the doorknob slipped he fell hitting his neck on the door and landing on his backside. He states that since then he has had some difficulty walking and had another fall which he felt that he was walking too fast on his way to dialysis and tripped. During his time here he was seen by Dr. Fragoso from neurosurgery there was a concern for spinal stenosis and consideration of possible laminectomy to help relieve this. During his workup. He had an echocardiogram which showed normal ejection fraction with severe aortic stenosis with mean gradient of 56 and aortic valve area of 0.4. In talking to him about this he states that he has had known aortic stenosis for our and never felt that it would needed any further evaluation. He denies chest pain or syncopal episodes. He does get short of breath with activities although difficult to totally assess as he appears to be limited by his overall need for a cane for walking. In seeing him he is currently hemodynamically stable without chest pain or shortness of breath. PAST MEDICAL HISTORY 1. Hypertension 2. Diet-controlled diabetes. 3. Hyperlipidemia 4. End-stage renal disease on hemodialysis Wednesday, , Wednesday. 5. Spinal stenosis. PAST SURGICAL HISTORY 1. Left radial AV fistula. 2. Pilonidal cyst removal. ALLERGIES NO KNOWN DRUG ALLERGIES. MEDICATIONS 1. Coreg 25 mg b.i.d. 2. Naproxen 250 mg b.i.d. 3. Sensipar 30 mg daily 4. Allopurinol 100 mg daily. FAMILY HISTORY Denies premature coronary artery disease or sudden cardiac . within the family. SOCIAL HISTORY Denies tobacco, alcohol or drug abuse. REVIEW OF SYSTEMS 14-systems were reviewed including osteopathic pertinent positives and negatives above otherwise negative. PHYSICAL EXAMINATION VITAL SIGNS: Temperature 98.3, heart rate 82, blood pressure 144/74, respirations 18, pulse ox 95% on room air. IN GENERAL: The patient appears well in no acute distress, alert awake and oriented x3. Extraocular muscles intact. Mucous membranes moist. NECK: Supple. No JVD at 45 degrees. No carotid bruits heard bilaterally. Carotid upstroke is brisk in nature. HEART: Heart is regular rate and rhythm. Positive first and second heart sounds with a 3/6 crescendo-decrescendo murmur to the right sternal border which dampens S2. LUNGS: Lungs have decreased breath sounds bilaterally but no overt wheezes, rales or rhonchi. Abdomen is soft, nontender and stented organomegaly noted. EXTREMITIES: Show trace edema bilaterally. NEUROLOGICALLY: No focal deficits. SKIN: Warm, dry and intact. OSTEOPATHICALLY: Osteopathic with mild lordosis. No kyphoscoliosis or paraspinal tender points. LABORATORY FINDINGS Hemoglobin 9.9, hematocrit 29.3, platelets 146. INR 1.3. Potassium 4.5, BUN 53, creatinine 9.57. RADIOLOGIC: Electrocardiogram (March 25, 2017 AT 1847) sinus rhythm with sinus arrhythmia, left axis deviation, LVH with secondary ST-T wave changes. IMPRESSIONS 1. Severe aortic stenosis by echocardiogram (mean gradient 56, aortic valve area 0.4 cm squared). With a normal ejection fraction. 2. Preoperative evaluation for neurosurgical examination, possible laminectomy. 3. End-stage renal disease on hemodialysis Wednesday, and Wednesday. 4. Recurrent falls which appear somewhat mechanical in nature. 5. C-Difficile diarrhea. 6. Hypertension. 7. Anemia of chronic disease. RECOMMENDATIONS: 1. Mr. Young presented recently originally with falls which sounds somewhat mechanical in nature although this may be due to his cervical stenosis. 2. I was asked to see him in anticipation of laminectomy. Overall he has been extremely high risk due to his overall severe aortic stenosis. He may appear asymptomatic although I believe that the patient does not exert himself enough to get short of breath. 3. I spoke to him about undergoing evaluation for his aortic stenosis including left and right heart catheterization today. Risks, benefits and alternatives were explained to him and he consents as such. 4. I am waiting to talk to Dr. Fragoso but a message was left to evaluate how emergent his possible laminectomy could be or if this could be placed off for weeks to months. 5. Further recommendations will be made based on the hospital course. Thank you for allowing me to see Alvaro Young if there are any questions please do not hesitate to call. Jeffrey GAMBOA/ /1:30 PM /2:49 PM
--- NOTE | 2017-04-01 15:47 | CATHPROC ---
[employer] HIS Report Study Information Study Number Admission Scheduled Start Study Start [id number] Mar 31 2017 11:53AM 04/01/2017 Apr 01 2017 1:53PM [facility] Cardiac Catheterization Admit Source Facility Department Emergency department [facility] Physician and Clinical Staff Initial Jeffrey West Registered Pharmacist Teena Montana RN Recorder Luciana Kasper,RT(R) Recorder Yudy Kong RN Scrub Aureliano Pizano,RT(R) Procedures Performed Procedure Location (Site) Vessel Name Angiogram (manual) Abd Aorta (A3) Aorta Coronary Angiograms LCA Left Coronary Coronary Angiograms RCA Right Coronary Wire insertion Fem Art (right) Femoral Art Equipment Time Supervisor Sunglasses Description Size Mfg Part Number Used/Scraped CATHETER, FR5 SWAN ANTONETTE 14:20 GOMEZ BOONE FR 5 [id number] *[id number] Used MONITOR TRANSDUCER, TRUWAVE [id number] 14:19 GOMEZ BOONE * Used W/STOCKCOCK *[id number] TRANSDUCER, TRUWAVE [id number] 14:19 GOMEZ BOONE * Used W/STOCKCOCK *[id number] INTRODUCER SET, 14:20 [employer] FR 5 [id number] *[id number] Used MICROPUNCTURE, STIFFENED [id number] *[id number] [id number] *[id number] [id number] *[id number] [id number] *[id number] 14:19 Dexetra MEDICAL WIRE, 3MMJ .035 180CM 180CM Used *[id number] 14:19 NAMIC MANIFOLD, 2 PORT * Used *[id number] 14:19 NAMIC MANIFOLD, 4 PORT * Used *[id number] 13:54 NYCOMED OMNIPAQUE, 350 MG, 150ML 150ML [id number] Used [id number] 14:21 TERUMO MEDICAL SHEATH, FR5 TERUMO (10CM) FR 5 Used *[id number] 14:20 TERUMO MEDICAL SHEATH, FR6 TERUMO (10CM) FR 6 Used *[id number] 15:27 TERUMO MEDICAL SHEATH, FR6 TERUMO (10CM) FR 6 Used *[id number] 15:10 TERUMO MEDICAL SHEATH, FR6 TERUMO (25CM) FR 6 Used *[id number] WIRE, ANGLE GLIDE STIFF .035 [id number] 15:06 TERUMO MEDICAL/DAVIDA 260CM Used 260CM *[id number] Equipment Model, Serial, Lot Number and Expiration Data Description Model Number Serial Number Lot Number Expiration Date INTRODUCER SET, [id number] 01-09-2020 MICROPUNCTURE, STIFFENED History: Current Medications Medication Dosage/Unit Route Frequency Last Date/Time Taken CARVEDILOL HEPARIN History: Allergies Allergy Reaction No Known Allergies History: Risk Factors Hypertension Dyslipidemia Yes Yes On Dialysis Diabetes Diabetes Therapy Labs Hgb (g/dl) Hct (%) WBC (l/cumm) Platelets (thousands) 11.60-17.00 35.00-51.00 4.00-11.00 150.00-450.00 9.9 29.3 6.5 146 Glucose (mg/dl) BUN (mg/dl) Creatinine (mg/dl) BUN:Creatinine (1:x) 74.00-106.00 7.00-18.00 0.50-1.30 10.00-20.00 99 53 9.6 5.5 Na (meq/l) K (meq/l) 136.00-145.00 3.50-5.10 142 4.5 INR (PTT:PT) 0.90-1.10 1.3 Medication Medication Total Dose (Bolus/Oral) Medication Total Dosage/Unit 1% XYLOCAINE 20 mL FENTANYL 50 mcg Medications (Bolus/Oral) Medication Time Given Dosage/Unit Administered By Reason 1% XYLOCAINE 04/01/2017 2:44:00 PM 20 mL Jeffrey Ortiz 20 mL 1% XYLOCAINE given in lab by Jeffrey Ortiz in Right Groin via Subcutaneous. FENTANYL 04/01/2017 2:44:35 PM 50 mcg Teena Montana As per physicians verb al order 50 mcg FENTANYL given in lab by Teena Montana, RN in Right Forearm via Peripheral IV. Ordered by Jeffrey Silva Reason: As per physicians verbal order. Initial Case Assessment Cardiovascular HR Rhythm NIBP 81 SR 140/82 Circulatory - Right Pulses Dorsalis Pedis Posterior Tibial Femoral d d 2 Scale (0,1,2,3,4,d) Circulatory - Left Pulses Dorsalis Pedis Posterior Tibial Femoral d 1 1 Scale (0,1,2,3,4,d) Circulatory - Lower Extremities Color Lower Right Color Lower Left Normal Normal Neurological State Oriented to time-place- Alert Moves all extremities person Respiration - General Respiration Rate SpO2 (%) (B/min) 18 92 Chronological Log Time Study Chronological Log 14:10:26 Patient arrived via Bed. 14:10:30 Patient Name, D.O.B, / Armband Verified By R.N. 14:10:33 Consent signed by the physician and the patient and verified by the [facility] staff. 14:10:36 Pre-op and post- op instructions given; patient acknowledges understanding of instructions. 14:11:00 Verbal Stimulation=2 Physical Stimulation=1 Airway=2 Respiration=2 TOTAL=7. (0=absent, 1=li mited, 2=present) 14:11:50 Patient has been NPO for More than 6Hrs. 14:11:53 Skin Breakdown- generalized bruising to extremities noted 14:12:13 Patient Warmer Placed on the Table. 14:12:17 Arnel Prominences Protected 14:12:33 A # 18 IV was noted in the Forearm (right). Grade = 0 0.9ns kvo connected 14:13:36 History and physical on the chart. 14:15:02 Bilateral groins prepped with 2% chlorhexidine, and draped after a 3 minute waiting time. Vitals capture started with the following parameters, Patient=Adult, Interval=5 min, Initial Pr vwyqum=763 mmHg, 14:15:13 Deflation Rate=5 mmHg, Cuff placed on Left Arm 14:16:16 HR=81 bpm, ROII=512/82 mmhg, SpO2=92.0 %, Resp=19 B/min, Pain=0, Neto=10, Campuzano=2 14:19:16 Reference ECG taken 14:20:50 HR=81 bpm, UYVZ=674/82 mmhg, SpO2=92.0 %, Resp=22 B/min, Pain=0, Neto=10, Campuzano=2 Assessment: Initial Case, HR=81 BPM, Rhythm=SR, BFKS=902/82 mmhg Right Pulses: Frederic Ped=d, Post Tib=d, Femoral=2 Left Pulses: Frederic Ped=d, Post Tib=1, Femoral=1 14:21:43 Lower Right Extremities: Color=Normal Lower Left Extremities: Color=Normal Neurological: State=Alert, Ox3, LÓPEZ Respiration: Resp=18 B/min, SpO2=92 % 14:25:47 HR=81 bpm, HRWT=633/83 mmhg, SpO2=95.0 %, Resp=21 B/min, Pain=0, Neto=10, Campuzano=2 14:30:04 Pressure channel 1 zeroed. 14:30:50 HR=85 bpm, UBNE=432/83 mmhg, SpO2=95.0 %, Resp=24 B/min, Pain=0, Neto=10, Campuzano=2 14:32:01 MD paged 14:35:51 HR=98 bpm, MQWI=254/87 mmhg, SpO2=94.0 %, Resp=23 B/min 14:36:38 MD arrived. 14:40:48 HR=89 bpm, XWUK=672/89 mmhg, SpO2=95.0 %, Resp=23 B/min, Pain=0, Neto=10, Campuzano=2 Time Out. Correct patient, correct procedure, correct physician, power injector loaded not load ed with contrast with 14:42:43 surgical team present. Time Out Concurred by MD and individual staff in procedure. 14:43:00 Case Start 14:44:00 20 mL 1% XYLOCAINE given in lab by Jeffrey Ortiz in Right Groin via Subcutaneous. 50 mcg FENTANYL given in lab by Teena Montana RN in Right Forearm via Peripheral IV. Ordered by Jeffrey Ortiz 14:44:35 G. Reason: As per physicians verbal order. 14:46:36 HR=74 bpm, DGUX=411/73 mmhg, SpO2=95.0 %, Resp=20 B/min, Pain=0, Neto=10, Campuzano=2 14:46:58 Access site was Right Femoral Artery. 14:47:40 A SHEATH, FR5 TERUMO (10CM) FR 5 was advanced into the Fem Art (right) using the Modified S kayladinger technique. 14:50:59 HR=71 bpm, CBCW=359/74 mmhg, SpO2=92.0 %, Resp=24 B/min, Pain=0, Neto=10, Campuzano=2 14:52:27 Access site was Right Femoral Vein. 14:52:47 A SHEATH, FR6 TERUMO (10CM) FR 6 was advanced into the Fem Vein (right) using the Modified Seldinger technique. 14:54:58 An injection in the Fem Art (right) was made through the SHEATH, FR5 TERUMO (10CM) FR 5. 14:55:30 A CATHETER, FR5 SWAN ANTONETTE MONITOR FR 5 was inserted via Fem Vein (right) 14:55:56 HR=68 bpm, JUVX=169/70 mmhg, SpO2=94.0 %, Resp=21 B/min, Pain=0, Neto=10, Campuzano=2 Recorded Pressure: PCW, HR=72, Condition=Condition 1 14:58:41 (Pulmonary Capillary Wedge) PCW /16 14:59:38 Saturation: Site=PA (Pulmonary Artery) , O2=70 %, Hgb=9.9 gm/dl, Condition=Condition 1. Use d in calculation. 15:00:24 Saturation: Site=Ao (Aorta) , O2=89.2 %, Hgb=9.9 gm/dl, Condition=Condition 1. Used in calc ulation. Recorded Pressure: MPA, HR=72, Condition=Condition 1 15:00:42 (Main Pulmonary Artery) MPA 52/19/32 15:00:53 HR=70 bpm, KJXG=871/77 mmhg, SpO2=93.0 %, Resp=21 B/min, Pain=0, Neto=10, Campuzano=3 Recorded Pressure: RV, HR=71, Condition=Condition 1 15:01:33 (Right Ventricle) RV 51/2/6 Recorded Pressure: RA, HR=72, Condition=Condition 1 15:02:02 (Right Atrium) RA 7/5/5 15:02:33 [place] Catheter Removed A JR 4.0 INFINITI CATHETER FR 5 was advanced over a wire. OMNIPAQUE, 350 MG, 150ML 150ML was us ed for 15:03:29 injections. 15:05:10 Abd Aorta (A3) angiogram, manually injected. 15:05:56 HR=70 bpm, UGGY=403/70 mmhg, SpO2=91.0 %, Resp=22 B/min, Pain=0, Neto=10, Campuzano=2 15:06:46 A WIRE, ANGLE GLIDE STIFF .035 260CM 260CM was inserted via Fem Art (right). 15:08:03 Wire removed Recorded Pressure: Ao, HR=70, Condition=Condition 1 15:08:37 (Aorta) Ao 148/57/89 15:10:11 Catheter was removed A SHEATH, FR6 TERUMO (25CM) FR 6 was exchanged in the Fem Art (right). This was necessary in or parish for catheter 15:10:44 support. 15:10:57 HR=71 bpm, AXCA=364/72 mmhg, SpO2=92.0 %, Resp=23 B/min, Pain=0, Neto=10, Campuzano=3 A JR 4.0 INFINITI CATHETER FR 6 was advanced over a wire. OMNIPAQUE, 350 MG, 150ML 150ML was us ed for 15:13:33 injections. 15:15:54 HR=73 bpm, PDVO=381/83 mmhg, SpO2=94 %, Resp=24 B/min, Pain=0, Neto=10, Campuzano=3 15:17:44 The RCA was injected and visualized at various angles. OMNIPAQUE, 350 MG, 150ML 150ML used . After removing the current catheter a JL 4.5 INFINITI CATHETER FR 6 was advanced over a WIRE, A NGLE GLIDE STIFF 15:18:49 .035 260CM 260CM. 15:20:55 HR=72 bpm, HQDR=307/69 mmhg, SpO2=95.0 %, Resp=21 B/min, Pain=0, Neto=10, Campuzano=3 15:22:42 The LCA was injected and visualized at various angles. OMNIPAQUE, 350 MG, 150ML 150ML used . 15:25:56 HR=74 bpm, PVBN=385/78 mmhg, SpO2=91.0 %, Resp=18 B/min, Pain=0, Neto=10, Campuzano=3 15:27:55 Catheter was removed 15:28:06 Wire removed A SHEATH, FR6 TERUMO (10CM) FR 6 was exchanged in the Fem Art (right). This was necessary in or [place] to achieve 15:28:23 vascular hemostasis. 15:29:16 Case End 15:30:00 Arterial Sheath removed; pressure applied to access site by TL. 15:30:53 HR=71 bpm, CQMH=801/73 mmhg, SpO2=95.0 %, Resp=11 B/min, Pain=0, Neto=10, Campuzano=2 15:35:58 HR=75 bpm, DJIT=475/76 mmhg, SpO2=93.0 %, Resp=20 B/min, Pain=0, Neto=10, Campuzano=2 15:39:20 Venous Sheath removed; pressure applied to access site by TL. 15:40:57 HR=67 bpm, LUAQ=983/68 mmhg, SpO2=93.0 %, Resp=19 B/min 15:42:53 Sterile dressing applied to site 15:42:56 Bedside Report will be given. 15:43:06 A Left and Right Heart Cath was performed. [facility]:47:[facility] - Contrast Media Used In Study Contrast Total Opened (mL) Total Used (mL) Total Wasted (mL) Omnipaque 150 115 35 End Study - Maximum Contrast Load Max Contrast Load (mL) 43.2 End Study - Radiation Exposure Fluoro Time (minutes) 11.9 End Study - Sheaths Sheaths Pulled By Sheath Hold Time (min) Aureliano Pizano End Study - Patient Disposition Complications Transferred To Interventional Outcome No Telemetry Bed successful
[2017-04-01] MEDS ORDERED: IOHEXOL 350 MG/ML 100 ML BTL (for Cath Lab) OTHER ONE (16:11)
[2017-04-01] MEDS ORDERED: IOHEXOL 350 MG/ML 50 ML BTL (for Cath Lab) OTHER ONE (16:11)
[2017-04-01] MEDS ORDERED: MISC INFORMATION XX ONE (16:15)
--- NOTE | 2017-04-01 16:43 | HHI.NPPN ---
Subjective History of Present Illness 76-year-old male with past medical history of hypertension, hyperlipidemia, diabetes mellitus controlled on diet, history of end-stage renal disease on hemodialysis three times per week and chronic anemia who came to the hospital with complaint of swelling and weakness in the leg. I was called to see the patient for the management of dialysis. The patient has been on hemodialysis Wednesday, and Wednesday. Additional Remarks Patient is alert, seen in AM, no SOB, NPO for surgery. Review of Systems General Constitutional: Fatigue Cardiovascular Cardiac: Edema, SNOW Objective Data Data Vital Signs Date Time Temp Pulse Resp B/P (MAP) Pulse Ox O2 Delivery O2 Flow Rate FiO2 04/01/17 12:00 98.3 82 18 144/74 (97) 95 04/01/17 08:34 97.7 95 18 142/72 (95) 97 04/01/17 06:19 98.4 84 18 128/59 (82) 95 04/01/17 01:52 98.2 87 16 129/63 (85) 94 03/31/17 20:35 98.4 86 16 126/58 (80) 98 03/31/17 20:02 98 Room Air 03/31/17 17:47 95 21 -: 04/01/17 0544 04/01/17 0544 Physical Exam General Appearance: No Acute Distress, Comfortable Eyes Eye Exam: Pupils Equal Throat Throat Exam: Oral Mucosa [place] & Moist Neck Neck Exam: Neck Supple Pulmonary Resp Exam: Breath Sounds Equal, No Distress, Rhonchi, Decreased Bases Cardiology CV Exam: Regular, Normal Sinus Rhythm Gastrointestinal/Abdomen GI Exam: Soft, Non-Tender, Bowel Sounds Present Extremeties Extremities Exam: Moderate Edema, Pitting Edema Neurologic Neuro Exam: Alert, Awake, Oriented Psychiatric Psych Exam: Appropriate Responses Assessment/Plan Assessment Summary: Fluid/Volume Overload, Hypertension, End Stage Renal Disease Problem List: (1) Diabetes mellitus ICD Codes: E11.9 - Diabetes mellitus Status: Chronic (2) Hypertension ICD Codes: I10 - Hypertension Status: Chronic (3) Hyperlipidemia ICD Codes: E78.5 - Hyperlipidemia Status: Chronic (4) Anemia ICD Codes: D64.9 - Anemia Status: Acute (5) CKD (chronic kidney disease) stage V requiring chronic dialysis ICD Codes: N18.6 - CKD (chronic kidney disease) stage V requiring chronic dialysis; Z99.2 - Dependence on renal dialysis Status: Chronic (6) Recurrent falls ICD Codes: R29.6 - Repeated falls (7) Lower extremity edema ICD Codes: R60.0 - Localized edema Plan Patient has been on HD 3 times a week, TTS. Admitted with leg edema and recurrent falling. Patient is now on HD, removing 3 liters. Told to restrict salt and fluid intake. BP is better now. Hgb. decreased, no active bleeding, on Epogen. Will need to go to Rehab, to get PT. Continue HD, TTS. Follow up Hgb is stable. Neurosurgery consulted. CT and MRI of spine noted, Has Cervical stenosis, neurosurgery following. On PO Flagyl for C.Difficile. For laminectomy today. Patient refused HD as he is NPO and feel that will get more dehydrated. Labs stable, agreed for HD in AM. Quiana Mayers MD Apr 01, 2017 16:43
[2017-04-02] VITALS (22 sets, daily range): BP systolic 112–137; BP diastolic 60–78; PULSE 69–84; RESP 16–18; TEMP 97.7–98.9; O2SAT 92–98
--- NOTE | 2017-04-02 05:27 | MA ---
cc: JEFFREY WEST DO DATE OF PROCEDURE April 01, 2017 PROCEDURE Coronary angiogram, right heart catheterization. PREPROCEDURE DIAGNOSIS Severe aortic stenosis by echocardiogram. POSTPROCEDURE DIAGNOSIS Severe aortic stenosis by echocardiogram, coronary artery disease, mild pulmonary hypertension (type 2). MEDICATIONS Fentanyl 50 mcg. CONTRAST USED 115 cc. FLUOROSCOPY 11.9 minutes MODERATE SEDATION 0 minutes. ESTIMATED BLOOD LOSS 10 cc. PROCEDURAL SUMMARY Alvaro Young is a pleasant 76-year-old male who originally presented with a fall which was felt to be mechanical. He had previously known aortic stenosis but echocardiogram was done and showed a mean gradient of 56 and an aortic valve area of 0.4. He was to have consideration of laminectomy by Dr. Fragoso and so I was consulted for preoperative evaluation. That surgery had been put on hold and I discussed this with Dr. Fragoso and he did not feel that the patient was in need of emergent surgery and this could be put off as the patient most likely does not have neurological symptoms. But because of his severe aortic stenosis and the need for possible surgery in the near future, I felt it was reasonable for him to undergo right and left heart catheterization for further consideration of aortic valve replacement. Risks, benefits and alternatives were explained to him and he consented as such. He was brought to the lab and prepped in the usual sterile fashion. The right femoral artery was accessed using a modified Seldinger technique and placement of a 5-Ukrainian sheath. This was easily aspirated and flushed. Right femoral vein was accessed using a modified Seldinger technique and placement of a 6-Ukrainian sheath. This was easily aspirated and flushed. A Redfield-Marilyn catheter was advanced to a wedge position and oxygen saturations and pressures were done on a standard fashion on pullback throughout the heart. Redfield-Marilyn catheter was removed. A JR-4 was advanced to the mid-iliac but due to tortuosity was difficult to maneuver and so the wire was exchanged for a stiff angled [place]. The JR-4 was advanced to the ascending aorta but was unable to engage the right coronary artery. The JR-4 was removed. The sheath was exchanged for a long 6-Ukrainian sheath. A JR-4 catheter was then used for selective angiography of the right coronary artery system. This was exchanged out for a JL-4.5 which was used for selective angiography of the left coronary artery system. The JL-4.5 was removed over a J-wire. The sheath was exchanged for a short 6-Ukrainian sheath. Both sheaths were removed and pressure was held for hemostasis. The patient left the mason tender restoration labor cardiovascularly stable. FINDINGS LEFT MAIN: A normal-size vessel with adequate reflux. It bifurcates into an LAD and circumflex. LAD: Normal-size vessel. There is a focal 80% stenosis in the proximal to midportion. Otherwise, good runoff distally. It gives off four small diagonals with the second diagonal having 80-90% stenosis in an overall 1.5-mm vessel which covers a small area of myocardium. LEFT CIRCUMFLEX: Normal-sized vessel with 20% disease noted in the first obtuse marginal. Overall significant tortuosity but no significant disease noted. RCA: Normal-sized vessel with significant tortuosity throughout. There is 30-40% disease in the proximal portion. Distally no significant disease. HEMODYNAMIC RESULTS RA 5. RV 51.2. RVEDP 6. PA 52/19, mean PA 32. Wedge 17. Cardiac output 9.5. Cardiac index 4.8. IMPRESSIONS 1. Severe aortic stenosis by echocardiogram (mean gradient 56, aortic valve area 0.4). 2. Coronary artery disease with focal lesion in the proximal to mid-LAD. 3. Mild pulmonary hypertension (type 2). RECOMMENDATIONS 1. Mr. Young was found to have severe aortic stenosis and it is difficult to tell if he is symptomatic at this time as he does not seem to be able to exert himself. 2. During cardiac catheterization he was found to have a lesion in the proximal to mid-LAD. 3. He will be seen by CT surgery for consideration of AVR with bypass versus TAVR and possible PCI. Overall he appears to have significant calcification of his peripheral vasculature is well as tortuosity and this will make decision between TAVR and SAVR difficult. 4. He was also noted to have C. diff colitis and may need to continue treatment outpatient for clearance before consideration of aortic valve replacement. 5. As far as his possible laminectomy, this will be placed on hold in the near future. 6. Further recommendations will be made based on the hospital course. Thank you for allowing me to see Alvaro Young. If there are any questions, please do not hesitate to call. Jeffrey West DO VGP/SSB /3:36 PM /4:48 AM
[2017-04-02] MEDS: metroNIDAZOLE 500 MG TAB PO SCH ×3 (06:23→20:08)
[2017-04-02] MEDS: hydrALAZINE HCL 10 MG TAB PO SCH ×3 (06:23→20:08)
[2017-04-02 06:32] LABS: BASOPHIL # 0.1 TH/MM3 (0-0.2); BASOPHIL % 0.7 % (0.0-2.0); EOSINOPHIL # 0.3 TH/MM3 (0-0.4); EOSINOPHIL % 3.8 % (0.0-4.0); HEMATOCRIT 29.6 % (39.0-51.0); HEMOGLOBIN 9.7 GM/DL (13.0-17.0); LYMPH % 11.3 % (9.0-44.0); LYMPHOCYTE # 0.9 TH/MM3 (1.0-4.8); MEAN CELL VOLUME 103.9 FL (80.0-100.0); MEAN CORPUSCULAR HGB CONC 32.8 % (32.0-36.0); MEAN PLATELET VOLUME 9.9 FL (7.0-11.0); MONO % 9.2 % (0.0-8.0); MONOCYTE # 0.7 TH/MM3 (0-0.9); PLATELET COUNT 171 TH/MM3 (150-450); RED BLOOD COUNT 2.84 MIL/MM3 (4.50-5.90); RED CELL DISTRIBUTION WIDTH 14.8 % (11.6-17.2)
[2017-04-02 07:06] LABS: BICARBONATE 28.9 MEQ/L (21.0-32.0); CALCIUM 9.2 MG/DL (8.5-10.1)
[2017-04-02 07:22] LABS: CREATININE 11.21 MG/DL (0.60-1.30)
--- NOTE | 2017-04-02 08:44 | HHI.PR ---
Subjective Remarks Follow-up aortic stenosis, renal failure. The patient states that he is still having neck pain, unchanged. No chest pain or dyspnea. Objective Vitals Vital Signs Date Time Temp Pulse Resp B/P (MAP) Pulse Ox O2 Delivery O2 Flow Rate FiO2 04/02/17 07:01 71 04/02/17 06:00 74 04/02/17 05:47 77 04/02/17 04:00 98.9 80 16 137/78 (97) 94 04/02/17 04:00 80 04/02/17 03:00 74 04/02/17 02:00 74 04/02/17 01:00 78 04/02/17 00:00 78 04/02/17 00:00 98.9 74 16 132/74 (93) 94 04/01/17 23:00 58 04/01/17 22:00 58 04/01/17 20:08 93 21 04/01/17 20:00 98.9 82 16 139/73 (95) 93 04/01/17 19:00 82 04/01/17 19:00 93 Room Air 04/01/17 18:00 68 04/01/17 17:00 68 04/01/17 16:15 97.7 70 16 147/78 (101) 93 04/01/17 16:15 93 Room Air 04/01/17 16:00 65 04/01/17 12:00 98.3 82 18 144/74 (97) 95 I/O 04/01/17 04/01/17 04/01/17 04/02/17 04/02/17 04/02/17 07:00 15:00 23:00 07:00 15:00 23:00 Intake Total 240 ml 240 ml 120 ml Output Total 0 ml 50 ml Balance 240 ml 240 ml 70 ml Intake Oral 240 ml 240 ml 120 ml Output Urine Total 0 ml 50 ml # Voids 0 # Bowel Movements 0 Result Diagram: 04/02/17 0503 04/02/17 0503 Imaging Last Impressions Cervical Spine CT 03/31/17 0000 Signed Impressions: Service Date/Time: Friday, March 31, 2017 12:15 - CONCLUSION: 1. Degenerative anterolisthesis at C2-3 and C7-T1 secondary to facet arthropathy. 2. Severe degenerative disc disease as described. 3. No evidence of focal disc herniation, significant spinal stenosis, foraminal encroachment or acute fracture Ronald Lott MD Thoracic Spine MRI 03/30/17 0000 Signed Impressions: Service Date/Time: Thursday, March 30, 2017 16:03 - CONCLUSION: 1. Multilevel degenerative spondylosis of the thoracic spine with mild to moderate central canal stenosis at T1-2. Scot Guevara MD Renal Ultrasound 03/30/17 Signed Impressions: Service Date/Time: Thursday, March 30, 2017 15:20 - CONCLUSION: 1. Bilateral echogenic kidneys characteristic of chronic medical renal disease. 2. Multiple prominent bilateral renal cysts. Not significantly changed compared to the prior exam. 3. No evidence of hydronephrosis. Billy Roberts MD Lumbar Spine MRI 03/30/17 Signed Impressions: Service Date/Time: Thursday, March 30, 2017 16:03 - CONCLUSION: 1. No acute bony abnormality or disc herniation 2. Moderate to severe degenerative disc disease. 3. Moderate right foraminal stenosis at L4-5 Ronald Lott MD Cervical Spine MRI 03/30/17 Signed Impressions: Service Date/Time: Thursday, March 30, 2017 16:03 - CONCLUSION: . 1. Advanced multilevel degenerative spondylosis of the cervical spine with multilevel moderate to severe cervical canal stenosis, as above. Scot Guevara MD Lumbar Spine CT 03/29/17 Signed Impressions: Service Date/Time: Wednesday, March 29, 2017 10:07 - CONCLUSION: Extensive degenerative changes throughout the lumbar spine accentuated by scoliosis. There is significant neuroforaminal encroachment as well as changes in the facets Noncontrast CT scan of the abdomen is suggested further evaluate the large apparent cystic mass on the right. Williams Mahajan MD FACR Abdomen/Pelvis CT 03/29/17 0000 Signed Impressions: Service Date/Time: Wednesday, March 29, 2017 15:33 - CONCLUSION: 1. Inflammatory changes about the pancreatic head and in the central mesenteric fat indicating possible acute pancreatitis. No organized fluid collections. 2. Colonic diverticulosis. No evidence of acute diverticulitis. 3. 11 cm calcified cyst in the right kidney slightly smaller than on comparison ultrasound study of 2013. 4. Indeterminate 2.7 cm intermediate density mass in the midpole right kidney with no correlate on ultrasound 2013. May represent a complex cyst or solid mass. This could be further evaluated with renal ultrasound. 5. Diffuse severe arterial calcification. 6. Small bilateral pleural effusions. Gray Jimenez MD Lower Extremity Ultrasound [id number]/25/[id number] Signed Impressions: Service Date/Time: March 18:21 - CONCLUSION: 1. Negative for deep venous thrombosis bilateral lower extremities. Dillan Leonard MD Chest X-Ray [id number]/25/[id number] Signed Impressions: Service Date/Time: , March 25, 2017 19:18 - CONCLUSION: Patchy bilateral lower lung infiltrates and possible left pleural effusion. Dillan Leonard MD Objective Remarks General: Elderly male in no acute distress. Heart: Regular rate and rhythm. 3/6 aortic stenosis murmur. Lungs: Clear to auscultation bilaterally. No wheezes, rales, or rhonchi. Breathing is nonlabored. Abdomen: Soft, nontender, nondistended. Extremities: No lower extremity edema. Psych: Alert and oriented. Procedures 04/01/17 cardiac catheterization Urinary Catheter: No Vascular Central Line Catheter: No A/P Problem List: (1) Recurrent falls ICD Code: R29.6 - Repeated falls (2) ESRD (end stage renal disease) on dialysis ICD Code: N18.6 - End stage renal disease; Z99.2 - Dependence on renal dialysis (3) Lower extremity edema ICD Code: R60.0 - Localized edema (4) HTN (hypertension) ICD Code: I10 - HTN (hypertension) Status: Acute Assessment and Plan 1. Recurrent falls, cervical spinal stenosis: Appreciate neurosurgery recommendations. Surgery on hold due to cardiac issues. 2. C. difficile diarrhea: Patient states that the diarrhea is improving. Continue Flagyl (stop date 04/12/17). 3. Renal cystic mass: Follow-up outpatient. Renal ultrasound showed bilateral echogenic kidneys characteristic of chronic medical renal disease, multiple bilateral renal cysts. 4. End-stage renal disease: Hemodialysis Wednesday//Wednesday per nephrology. Patient refused dialysis yesterday, so he will have dialysis today per nephrology. 5. Aortic valve stenosis: Echocardiogram shows ejection fraction 55% with severe aortic valve stenosis. Appreciate cardiology recommendations. Discussed with Dr. Ortiz. Status post cardiac catheterization. Cardiothoracic surgery consult requested. 6. Hypertension: Continue Coreg, hydralazine. 7. Anemia, likely anemia of chronic disease: Epogen per nephrology. 8. Thrombocytopenia: No apparent active bleeding. Monitor labs. 9. Macrocytosis: Chronic. Possibly medication side effect. Follow-up as outpatient. 10. DVT prophylaxis: Heparin. González Olivera MD Apr 02, 2017 08:44
[2017-04-02] MEDS: SODIUM CHLORIDE 0.9% FLUSH 10 ML FLUSH IV FLUSH SCH ×2 (09:00→20:06)
--- NOTE | 2017-04-02 10:10 | PD.CAR.PN ---
CVT Progress Note Subjective/Hospital Course: sts data discussed with pt RISK SCORES About the STS Risk Calculator Procedure: AV Replacement + CAB Risk of Mortality: 6.965% Morbidity or Mortality: 32.086% Long Length of Stay: 18.324% Short Length of Stay: 12.053% Permanent Stroke: 2.89% Prolonged Ventilation: 21.365% DSW Infection: 1.078% Renal Failure: N/A Reoperation: 13.494% Objective: Vital Signs Date Time Temp Pulse Resp B/P (MAP) Pulse Ox O2 Delivery O2 Flow Rate FiO2 04/02/17 08:15 95 Room Air 04/02/17 08:15 98.1 74 18 126/67 (86) 95 04/02/17 07:01 71 04/02/17 06:00 74 04/02/17 05:47 77 04/02/17 04:00 98.9 80 16 137/78 (97) 94 04/02/17 04:00 80 04/02/17 03:00 74 04/02/17 02:00 74 04/02/17 01:00 78 04/02/17 00:00 78 04/02/17 00:00 98.9 74 16 132/74 (93) 94 04/01/17 23:00 58 04/01/17 22:00 58 04/01/17 20:08 93 21 04/01/17 20:00 98.9 82 16 139/73 (95) 93 04/01/17 19:00 82 04/01/17 19:00 93 Room Air 04/01/17 18:00 68 04/01/17 17:00 68 04/01/17 16:15 97.7 70 16 147/78 (101) 93 04/01/17 16:15 93 Room Air 04/01/17 16:00 65 04/01/17 12:00 98.3 82 18 144/74 (97) 95 Labs: Laboratory Tests Test 04/02/17 05:03 White Blood Count 8.0 TH/MM3 (4.0-11.0) Red Blood Count 2.84 MIL/MM3 (4.50-5.90) Hemoglobin 9.7 GM/DL (13.0-17.0) Hematocrit 29.6 % (39.0-51.0) Mean Corpuscular Volume 103.9 FL (80.0-100.0) Mean Corpuscular Hemoglobin 34.0 PG (27.0-34.0) Mean Corpuscular Hemoglobin Concent 32.8 % (32.0-36.0) Red Cell Distribution Width 14.8 % (11.6-17.2) Platelet Count 171 TH/MM3 (150-450) Mean Platelet Volume 9.9 FL (7.0-11.0) Neutrophils (%) (Auto) 75.0 % (16.0-70.0) Lymphocytes (%) (Auto) 11.3 % (9.0-44.0) Monocytes (%) (Auto) 9.2 % (0.0-8.0) Eosinophils (%) (Auto) 3.8 % (0.0-4.0) Basophils (%) (Auto) 0.7 % (0.0-2.0) Neutrophils # (Auto) 6.0 TH/MM3 (1.8-7.7) Lymphocytes # (Auto) 0.9 TH/MM3 (1.0-4.8) Monocytes # (Auto) 0.7 TH/MM3 (0-0.9) Eosinophils # (Auto) 0.3 TH/MM3 (0-0.4) Basophils # (Auto) 0.1 TH/MM3 (0-0.2) CBC Comment DIFF FINAL Differential Comment Blood Urea Nitrogen 63 MG/DL (7-18) Creatinine 11.21 MG/DL (0.60-1.30) Random Glucose 78 MG/DL (74-106) Calcium Level 9.2 MG/DL (8.5-10.1) Sodium Level 138 MEQ/L (136-145) Potassium Level 5.0 MEQ/L (3.5-5.1) Chloride Level 99 MEQ/L (98-107) Carbon Dioxide Level 28.9 MEQ/L (21.0-32.0) Anion Gap 10 MEQ/L (5-15) Estimat Glomerular Filtration Rate 4 ML/MIN (>89) Result Diagram: 04/02/17 0503 04/02/17 0503 Negar Muñoz Apr 02, 2017 10:10
--- NOTE | 2017-04-02 11:03 | HHI.NPPN ---
Subjective History of Present Illness 76-year-old male with past medical history of hypertension, hyperlipidemia, diabetes mellitus controlled on diet, history of end-stage renal disease on hemodialysis three times per week and chronic anemia who came to the hospital with complaint of swelling and weakness in the leg. I was called to see the patient for the management of dialysis. The patient has been on hemodialysis Wednesday, and Wednesday. Additional Remarks Patient is alert, seen in AM, no SOB, NPO for surgery. Review of Systems General Constitutional: Fatigue Cardiovascular Cardiac: Edema, SNOW Objective Data Data Vital Signs Date Time Temp Pulse Resp B/P (MAP) Pulse Ox O2 Delivery O2 Flow Rate FiO2 04/02/17 09:00 76 04/02/17 08:15 95 Room Air 04/02/17 08:15 98.1 74 18 126/67 (86) 95 04/02/17 08:00 74 04/02/17 07:01 71 04/02/17 06:00 74 04/02/17 05:47 77 04/02/17 04:00 98.9 80 16 137/78 (97) 94 04/02/17 04:00 80 04/02/17 03:00 74 04/02/17 02:00 74 04/02/17 01:00 78 04/02/17 00:00 78 04/02/17 00:00 98.9 74 16 132/74 (93) 94 04/01/17 23:00 58 04/01/17 22:00 58 04/01/17 20:08 93 21 04/01/17 20:00 98.9 82 16 139/73 (95) 93 04/01/17 19:00 82 04/01/17 19:00 93 Room Air 04/01/17 18:00 68 04/01/17 17:00 68 04/01/17 16:15 97.7 70 16 147/78 (101) 93 04/01/17 16:15 93 Room Air 04/01/17 16:00 65 04/01/17 12:00 98.3 82 18 144/74 (97) 95 -: 04/02/17 0503 04/02/17 0503 Physical Exam General Appearance: No Acute Distress, Comfortable Eyes Eye Exam: Pupils Equal Throat Throat Exam: Oral Mucosa [place] & Moist Neck Neck Exam: Neck Supple Pulmonary Resp Exam: Breath Sounds Equal, No Distress, Rhonchi, Decreased Bases Cardiology CV Exam: Regular, Normal Sinus Rhythm Gastrointestinal/Abdomen GI Exam: Soft, Non-Tender, Bowel Sounds Present Extremeties Extremities Exam: Moderate Edema, Pitting Edema Neurologic Neuro Exam: Alert, Awake, Oriented Psychiatric Psych Exam: Appropriate Responses Assessment/Plan Assessment Summary: Fluid/Volume Overload, Hypertension, End Stage Renal Disease Problem List: (1) Diabetes mellitus ICD Codes: E11.9 - Diabetes mellitus Status: Chronic (2) Hypertension ICD Codes: I10 - Hypertension Status: Chronic (3) Hyperlipidemia ICD Codes: E78.5 - Hyperlipidemia Status: Chronic (4) Anemia ICD Codes: D64.9 - Anemia Status: Acute (5) CKD (chronic kidney disease) stage V requiring chronic dialysis ICD Codes: N18.6 - CKD (chronic kidney disease) stage V requiring chronic dialysis; Z99.2 - Dependence on renal dialysis Status: Chronic (6) Recurrent falls ICD Codes: R29.6 - Repeated falls (7) Lower extremity edema ICD Codes: R60.0 - Localized edema Plan Patient has been on HD 3 times a week, TTS. Admitted with leg edema and recurrent falling. Patient is now on HD, removing 3 liters. Told to restrict salt and fluid intake. BP is better now. Hgb. decreased, no active bleeding, on Epogen. Will need to go to Rehab, to get PT. Continue HD, TTS. Follow up Hgb is stable. Neurosurgery consulted. CT and MRI of spine noted, Has Cervical stenosis, neurosurgery following. On PO Flagyl for C.Difficile. For laminectomy today. Patient refused HD as he is NPO and feel that will get more dehydrated. Labs stable, agreed for HD in AM. Quiana Mayers MD Apr 02, 2017 11:03
--- NOTE | 2017-04-02 11:35 | MB ---
cc: ALONDRA FLORENTINO DATE OF CONSULTATION 04/02/2017 DATE OF 1940 REASON FOR CONSULTATION This is a 76-year-old male patient of the MA also seen and evaluated by Dr. Ortiz and Dr. Fragoso who apparently presented on the to the emergency room after a fall he sustained after tripping. He slipped and fell hitting the back of his head and his neck on the door landing on his backside. He apparently had some difficulty walking after that. He was seen by Dr. Fragoso and there was concern for possible spinal stenosis and consideration of laminectomy to help relieve that. They did a complete workup which included some lumbar CT extensive degenerative changes accentuated by scoliosis. Apparently there is some significant neuro foraminal encroachment as well as changes in the facets. CT abdomen and pelvis showed some inflammatory changes in the pancreatic head, possible acute pancreatitis, cyst on the right kidney, diffuse arterial calcification, small bilateral effusions. Thoracic spine MRI multi-degenerative spondylosis of the thoracic spine, moderate central canal stenosis T1-T2. The lumbar MRI revealed some foraminal stenosis L4-L5. On the cervical MRI, moderate to severe cervical canal stenosis as above. The patient was scheduled for surgery by Dr. Fragoso. He had undergone a 2-D echo on the and was found to have severe aortic valve stenosis with a valve area of 0.4 cm squared, some mild mitral regurgitation. He underwent cardiac cath by Dr. Ortiz which showed an ejection fraction of 55% mid distal LAD 70%. The diagonal was 80%. We were consulted to evaluate for coronary artery bypass grafting including aortic valve replacement, however the patient's scans and catheterization films did show extensive calcification of the iliac arteries and also of the aorta. PAST MEDICAL HISTORY 1. Diet controlled diabetes mellitus 2. End-stage renal disease on dialysis Tuesdays, , Saturdays. 3. Spinal stenosis 4. Hyperlipidemia 5. Hypertension PAST SURGICAL HISTORY Include: 1. Left radial AV fistula 2. Pilonidal cyst removal ALLERGIES No known allergies. MEDICATIONS Home meds include: 1. Coreg 2. Naprosyn 3. Sensipar 4. Allopurinol FAMILY HISTORY Noncontributory SOCIAL HISTORY Lives with his son. No tobacco or alcohol. He still drives. He does shop. He does clean his home. He does take care of his lawn. He follows with the MA for his medical care. He has not been to a dentist in many years. REVIEW OF SYSTEMS GENERAL: No night sweats, fever, heat and cold intolerance. SKIN: No psoriasis, itching or hives. HEENT: No blurred vision or hearing loss. RESPIRATORY: No cough. No shortness of breath. CARDIOVASCULAR: No chest pain. GASTROINTESTINAL: No diarrhea or vomiting. GENITOURINARY: No burning frequency or urgency. 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 ENDOCRINOLOGY: Positive for diabetes on exam. PHYSICAL EXAM Blood pressure 126/60, heart rate 74, temperature max 98.1. Patient is awake and alert in no acute distress. HEAD: Normocephalic, atraumatic. EYES, EARS, NOSE AND THROAT: Oral mucosa pink and moist. He has very poor dentition with one very loose front lower tooth at the gum line. He has some broken off teeth that need to be evaluated and removed. No obvious abscess at this time noted. NECK: Supple. No JVD. HEART: S1-S2. He has a grade 3/6 systolic murmur best noted at the left sternal border. LUNGS: Clear to auscultation. ABDOMEN: Soft and nontender. No masses or organomegaly. EXTREMITIES: No cyanosis, clubbing or edema. He does have an AV fish on the left forearm with a good bruit. LABORATORY FINDINGS Shows hemoglobin 9.7, hematocrit 29, white cell count 8.0, platelet count of 171. Sodium 138, potassium 5.0, BUN of 63, creatinine 11.21, INR 1.3. Urinalysis unremarkable. He did show positive for C difficile and has been treated with Flagyl. Micro, there was no enteric pathogens. RADIOLOGICAL EXAM As above. The cardiac cath as above and the 2-D echo. IMPRESSION At this time, the patient's risk of mortality is 6.9%. Morbidity mortality at 32%. His risks are high mortality and related to his end-stage renal disease, coronary disease, diabetes mellitus. RECOMMENDATIONS For evaluation for transcatheter aortic valve replacement and possible PCI to the LAD. He needs to be cleared by infectious disease in regards to his C. Difficile and also evaluated by dentistry for the removal of the poor dentition and poor teeth existing in his oral cavity. Dictated by KAYE Ba Alondra HMD DEANGELO Gonzalez/AMBAR /9:59 AM /11:13 AM
--- NOTE | 2017-04-02 12:25 | PD.CARD.PN ---
Subjective Subjective Remarks Patient seen on HD Doing well, no complaints Objective Medications Current Medications Medications (Trade) Dose Ordered Sig/Jamal Route Start Time Stop Time Status Last Admin (NS Flush) 2 ml UNSCH PRN IV FLUSH 03/25/17 22:45 (NS Flush) 2 ml BID IV FLUSH 03/26/17 09:00 04/01/17 21:15 (Zofran Inj) 4 mg Q6H PRN IVP 03/25/17 22:45 (Tylenol) 650 mg Q6H PRN PO 03/25/17 22:45 ([place] 5-325 Mg) 1 tab Q4H PRN PO 03/25/17 22:45 ([place] 10-325 Mg) 1 tab Q4H PRN PO 03/25/17 22:45 (Danielle-Colace) 1 tab BID PO 03/26/17 09:00 03/28/17 22:24 (Milk Of Magnesia Liq) 30 ml Q12H PRN PO 03/25/17 22:45 03/29/17 05:53 (Senokot) 17.2 mg Q12H PRN PO 03/25/17 22:45 (Dulcolax Supp) 10 mg DAILY PRN RECTAL 03/25/17 22:45 (Lactulose Liq) 30 ml DAILY PRN PO 03/25/17 22:45 (Zyloprim) 100 mg DAILY PO 03/26/17 09:00 04/01/17 08:00 (Coreg) 25 mg BID PO 03/26/17 09:00 04/01/17 21:15 (Sensipar) 30 mg DAILY PO 03/26/17 09:00 04/01/17 08:01 (Duoneb Neb) 1 ampule Q4HR NEB PRN NEB 03/26/17 01:45 (Apresoline) 10 mg Q8HR PO 03/26/17 14:00 04/02/17 06:23 Albumin Human 100 ml @ 60 mls/hr UNSCH PRN IV 03/26/17 13:15 03/27/17 08:43 (Tums Chew) 500 mg Q2H PRN CHEW 03/28/17 09:45 03/28/17 10:16 (Imodium) 2 mg Q6H PRN PO 03/28/17 15:30 03/31/17 16:37 (Lactinex) 1 tab TID PO 03/29/17 13:00 04/01/17 18:04 (Flagyl) 500 mg Q8HR PO 03/29/17 15:00 04/02/17 06:23 (Aspirin Chew) 81 mg DAILY CHEW 04/02/17 09:00 Vital Signs / I&O Vital Signs Date Time Temp Pulse Resp B/P (MAP) Pulse Ox O2 Delivery O2 Flow Rate FiO2 04/02/17 09:00 76 04/02/17 08:15 95 Room Air 04/02/17 08:15 98.1 74 18 126/67 (86) 95 04/02/17 08:00 74 04/02/17 07:01 71 04/02/17 06:00 74 04/02/17 05:47 77 04/02/17 04:00 98.9 80 16 137/78 (97) 94 04/02/17 04:00 80 04/02/17 03:00 74 04/02/17 02:00 74 04/02/17 01:00 78 04/02/17 00:00 78 04/02/17 00:00 98.9 74 16 132/74 (93) 94 04/01/17 23:00 58 04/01/17 22:00 58 04/01/17 20:08 93 21 04/01/17 20:00 98.9 82 16 139/73 (95) 93 04/01/17 19:00 82 04/01/17 19:00 93 Room Air 04/01/17 18:00 68 04/01/17 17:00 68 04/01/17 16:15 97.7 70 16 147/78 (101) 93 04/01/17 16:15 93 Room Air 04/01/17 16:00 65 I/O 04/01/17 04/01/17 04/01/17 04/02/17 04/02/17 04/02/17 07:00 15:00 23:00 07:00 15:00 23:00 Intake Total 240 ml 240 ml 120 ml Output Total 0 ml 50 ml 700 ml Balance 240 ml 240 ml 70 ml -700 ml Intake Oral 240 ml 240 ml 120 ml Output Urine Total 0 ml 50 ml Hemodialysis 700 ml # Voids 0 # Bowel Movements 0 Physical Exam GENERAL: NAD, AAOx3 SKIN: Warm and dry. HEAD: Atraumatic. Normocephalic. EYES: Pupils equal and round. No scleral icterus. No injection or drainage. ENT: No nasal bleeding or discharge. Mucous membranes pink and moist. NECK: Trachea midline. No JVD. CARDIOVASCULAR: Regular rate and rhythm. 3/6 crescendo-decrescendo murmur to the RSB RESPIRATORY: No accessory muscle use. Clear to auscultation. Breath sounds equal bilaterally. GASTROINTESTINAL: Abdomen soft, non-tender, nondistended. Hepatic and splenic margins not palpable. MUSCULOSKELETAL: Extremities without clubbing, cyanosis, or edema. No obvious deformities. Right femoral no hematoma or bruit, distal pulses intact NEUROLOGICAL: Awake and alert. No obvious cranial nerve deficits. Motor grossly within normal limits. Five out of 5 muscle strength in the arms and legs. Normal speech. PSYCHIATRIC: Appropriate mood and affect; insight and judgment normal. Laboratory Laboratory Tests Test 04/02/17 05:03 White Blood Count 8.0 TH/MM3 Red Blood Count 2.84 MIL/MM3 Hemoglobin 9.7 GM/DL Hematocrit 29.6 % Mean Corpuscular Volume 103.9 FL Mean Corpuscular Hemoglobin 34.0 PG Mean Corpuscular Hemoglobin Concent 32.8 % Red Cell Distribution Width 14.8 % Platelet Count 171 TH/MM3 Mean Platelet Volume 9.9 FL Neutrophils (%) (Auto) 75.0 % Lymphocytes (%) (Auto) 11.3 % Monocytes (%) (Auto) 9.2 % Eosinophils (%) (Auto) 3.8 % Basophils (%) (Auto) 0.7 % Neutrophils # (Auto) 6.0 TH/MM3 Lymphocytes # (Auto) 0.9 TH/MM3 Monocytes # (Auto) 0.7 TH/MM3 Eosinophils # (Auto) 0.3 TH/MM3 Basophils # (Auto) 0.1 TH/MM3 CBC Comment DIFF FINAL Differential Comment Blood Urea Nitrogen 63 MG/DL Creatinine 11.21 MG/DL Random Glucose 78 MG/DL Calcium Level 9.2 MG/DL Sodium Level 138 MEQ/L Potassium Level 5.0 MEQ/L Chloride Level 99 MEQ/L Carbon Dioxide Level 28.9 MEQ/L Anion Gap 10 MEQ/L Estimat Glomerular Filtration Rate 4 ML/MIN Assessment and Plan Problem List: (1) CAD (coronary artery disease) ICD Codes: I25.10 - Atherosclerotic heart disease of [place] coronary artery without angina pectoris (2) Aortic valvar stenosis ICD Codes: I35.0 - Nonrheumatic aortic (valve) stenosis (3) Anemia ICD Codes: D64.9 - Anemia Status: Acute (4) Thrombocytopenia ICD Codes: D69.6 - Thrombocytopenia, unspecified (5) ESRD (end stage renal disease) on dialysis ICD Codes: N18.6 - End stage renal disease; Z99.2 - Dependence on renal dialysis (6) Recurrent falls ICD Codes: R29.6 - Repeated falls (7) Hypertension ICD Codes: I10 - Hypertension Status: Chronic Assessment and Plan 1) Severe Discussed with CT surgery 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 Fragoso, will await further work up for aortic stenosis Problem Qualifiers (1) Aortic valvar stenosis: Qualified Codes: I35.0 - Nonrheumatic aortic (valve) stenosis Jeffrey Ortiz DO Apr 02, 2017 12:25
[2017-04-02] MEDS: LACTOBACILLUS ACIDOPHILUS TAB PO SCH ×3 (13:00→18:27)
--- NOTE | 2017-04-02 13:05 | HHI.IDPN ---
Note Infectious Disease Note Patient seen and examined. full consult dictated. Patient is clear for valvular surgery from ID standpoint. Continue to treat c. dif with Metronidazole x 10 days. Vital Signs Date Time Temp Pulse Resp B/P (MAP) Pulse Ox O2 Delivery O2 Flow Rate FiO2 04/02/17 12:36 97.7 78 18 124/66 (85) 96 04/02/17 09:00 76 04/02/17 08:15 95 Room Air 04/02/17 08:15 98.1 74 18 126/67 (86) 95 04/02/17 08:00 74 04/02/17 07:01 71 04/02/17 06:00 74 04/02/17 05:47 77 04/02/17 04:00 98.9 80 16 137/78 (97) 94 04/02/17 04:00 80 04/02/17 03:00 74 04/02/17 02:00 74 04/02/17 01:00 78 04/02/17 00:00 78 04/02/17 00:00 98.9 74 16 132/74 (93) 94 04/01/17 23:00 58 04/01/17 22:00 58 04/01/17 20:08 93 21 04/01/17 20:00 98.9 82 16 139/73 (95) 93 04/01/17 19:00 82 04/01/17 19:00 93 Room Air 04/01/17 18:00 68 04/01/17 17:00 68 04/01/17 16:15 97.7 70 16 147/78 (101) 93 04/01/17 16:15 93 Room Air 04/01/17 16:00 65 Laboratory Tests Test 04/02/17 05:03 White Blood Count 8.0 TH/MM3 Red Blood Count 2.84 MIL/MM3 Hemoglobin 9.7 GM/DL Hematocrit 29.6 % Mean Corpuscular Volume 103.9 FL Mean Corpuscular Hemoglobin 34.0 PG Mean Corpuscular Hemoglobin Concent 32.8 % Red Cell Distribution Width 14.8 % Platelet Count 171 TH/MM3 Mean Platelet Volume 9.9 FL Neutrophils (%) (Auto) 75.0 % Lymphocytes (%) (Auto) 11.3 % Monocytes (%) (Auto) 9.2 % Eosinophils (%) (Auto) 3.8 % Basophils (%) (Auto) 0.7 % Neutrophils # (Auto) 6.0 TH/MM3 Lymphocytes # (Auto) 0.9 TH/MM3 Monocytes # (Auto) 0.7 TH/MM3 Eosinophils # (Auto) 0.3 TH/MM3 Basophils # (Auto) 0.1 TH/MM3 CBC Comment DIFF FINAL Differential Comment Blood Urea Nitrogen 63 MG/DL Creatinine 11.21 MG/DL Random Glucose 78 MG/DL Calcium Level 9.2 MG/DL Sodium Level 138 MEQ/L Potassium Level 5.0 MEQ/L Chloride Level 99 MEQ/L Carbon Dioxide Level 28.9 MEQ/L Anion Gap 10 MEQ/L Estimat Glomerular Filtration Rate 4 ML/MIN Timothy Almanza MD Apr 02, 2017 13:05
[2017-04-02] MEDS: CINACALCET HYDROCHLORIDE 30 MG TAB PO SCH (13:20)
[2017-04-02] MEDS: ALLOPURINOL 100 MG TAB PO SCH (13:21)
[2017-04-02] MEDS: CARVEDILOL 12.5 MG TAB PO SCH ×2 (13:21→20:06)
[2017-04-02] MEDS: DOCUSATE SODIUM 50 MG/SENNA 8.6 MG TAB PO SCH ×2 (13:21→20:06)
[2017-04-02] MEDS: ASPIRIN 81 MG CHEW TAB CHEW SCH (13:21)
--- NOTE | 2017-04-02 13:31 | MB ---
cc: LANA DUARTE MD DATE OF CONSULTATION 04/02/[address] Nielson REASON FOR CONSULTATION Clearance for surgery. Patient with C-difficile infection. HISTORY OF PRESENT ILLNESS This is a 76-year-old white male who was admitted to the hospital on 03/25 with lower extremity weakness and difficulty ambulating. The patient noted that he tripped and fell on his driveway and hit the back of his head and his buttock some days before admission. He was admitted to the hospital for workup of the with weakness. In the interim, he has had other workup which revealed severe aortic stenosis. The patient has end-stage renal disease and undergoes hemodialysis. He had diarrhea on admission and stool C-difficile toxin was obtained and 03/29 and came back positive. The patient tells me that he has had diarrhea for about six days and that he was having up to three to four stools a day when it began but it has slowed down significantly. He has only had one bowel movement overnight and he said that he one this morning and it was soft. There was one recorded bowel movement yesterday. He is in no acute distress and denies abdominal pain. He is afebrile and his white blood cell count was normal. PAST MEDICAL HISTORY 1. End-stage renal disease 2. Polycystic kidney disease 3. History of skin cancer on the left arm. 4. Hypertension 5. Diabetes mellitus 6. Hyperlipidemia ALLERGIES NO KNOWN DRUG ALLERGIES. MEDICATIONS 1. Aspirin 2. Metronidazole 3. Lactinex 4. Hydralazine 5. Coreg 6. Allopurinol 7. Danielle-Colace SOCIAL HISTORY No tobacco, no alcohol, no illicit drugs. FAMILY HISTORY Noncontributory REVIEW OF SYSTEMS Negative on a 10-point review. PHYSICAL EXAMINATION This is a well-developed male who is in no acute distress. He is awake and alert. VITAL SIGNS: Temperature 97.7, BP 124/66, respirations 18, heart rate 78. HEENT: Head atraumatic. Extraocular movements grossly intact, pupils reactive to light. No icterus. Oropharynx, erosions visible at the front teeth. One solitary tooth at the lower front of the jaw with some erosion at the base and the rest of the teeth are gone. Moist mucosa. NECK: Supple without adenopathy. LUNGS: Clear breath sounds. HEART: A 4/6 systolic ejection murmur at left sternal border of blowing characteristic. ABDOMEN: Bowel sounds present, soft, nontender. RECTAL: Not performed. EXTREMITIES: No clubbing, no cyanosis, no edema. SKIN: No rash. NEUROLOGIC: Patient is alert and oriented. No gross focal findings. PSYCH: The patient is calm and cooperative. LABORATORY DATA Creatinine 11.21, BUN 63, sodium 138. WBC 8.0, platelets 171, hemoglobin 9.7. IMPRESSION C-difficile colitis. The patient is needing clearance for surgical procedure for valve replacement because of severe aortic stenosis. The patient appears to be improving from the C-difficile standpoint because he has very few bowel movements and he reports that his bowel movement is now solid. As far as surgery is concerned, the procedure can be done as long as he does not have profuse diarrhea. I will treat him with metronidazole for C. Diff for a total of 10 days and continue to monitor his stools. The patient is cleared to have the aortic valve replacement surgery from ID standpoint. Lana Duarte MD FD/AMBAR /12:43 PM /12:59 PM
[2017-04-02] MEDS ORDERED: IOHEXOL 350 MG/ML 10 ML VIAL (for RAD DIAG) IVCONTRAST ONE (15:56)
[2017-04-03] VITALS (22 sets, daily range): BP systolic 107–141; BP diastolic 47–69; PULSE 63–79; RESP 16–18; TEMP 98–98.6; O2SAT 91–97
[2017-04-03] MEDS: metroNIDAZOLE 500 MG TAB PO SCH ×3 (05:03→20:04)
[2017-04-03] MEDS: hydrALAZINE HCL 10 MG TAB PO SCH ×3 (05:03→20:04)
--- NOTE | 2017-04-03 07:21 | RADRPT ---
EXAM DATE/TIME: 04/02/2017 15:37 [facility] COMPARISON: CT ABDOMEN & PELVIS W/O CONTRAST, March 29, 2017, 15:33. INDICATIONS : Pre-op for Transaortic valve replacment. IV CONTRAST: 96 cc Omnipaque 350 (iohexol) IV RADIATION DOSE: 51.93 CTDIvol (mGy) MEDICAL HISTORY : Hyperparathyroidism. Renal failure, acute. Polycystic kidney disease. SURGICAL HISTORY : Dialyis. ENCOUNTER: Initial ACUITY: 1 day PAIN SCALE: 2/10 LOCATION: Bilateral chest TECHNIQUE: Volumetric scanning was performed using a multi-row detector CT scanner. The data was post processed with a variety of visualization algorithms including full volume maximum intensity projection, multi -planar sliding thin slab reformation, curved planar reformation, and surface rendering techniques. Using automated exposure control and adjustment of the mA and/or kV according to patient size, radiat ion dose was kept as low as reasonably achievable to obtain optimal diagnostic quality images. DIC OM format image data is available electronically for review and comparison. FINDINGS: CARDIAC: The coronary system is right dominant. There are extensive calcifications seen throughout the hand ry arteries. There is a minimal amount of pericardial fluid seen. AORTIC ROOT/VALVE: 3 cusps are evident with calcifications. The aortic root measures 3.9 cm. The proximal descending thoracic aorta measures 3.9 cm. The mid thoracic descending aorta measur es 3.4 cm. There are extensive calcifications throughout the aorta and the arterial system. THORACIC AORTA: Origin of the great vessels is normal. No evidence of aneurysm, mural thrombus, dissection, mural ca lcification, or stenosis. ABDOMINAL AORTA: The abdominal aorta measures up to 2.9 cm in diameter. There are extensive calcifications seen throug hout the arterial system. CELIAC ARTERY: Celiac artery is widely patent. Extensive calcifications are seen. SMA: Superior mesenteric artery is widely patent. Extensive calcifications are seen. RIGHT RENAL ARTERY: Right renal artery is widely patent. Extensive calcifications are seen. LEFT RENAL ARTERY: Left renal artery is widely patent. Extensive calcifications are seen. RIGHT COMMON ILIAC: There extensive calcification throughout the iliac arterial structures. The common femoral artery irving sures 1.2 cm. LEFT COMMON ILIAC: There extensive calcification throughout the iliac arterial structures. The common femoral artery irving sures 1.1 cm. THORAX: There are several small thyroid nodules measuring up to 1.3 cm. There are mild bilateral pleural effu sions with accompanying areas of atelectasis seen in the posterior lungs. Normal sized lymph nodes ar e seen in the mediastinum. Pathologically enlarged adenopathy is not seen. ABDOMEN: There are multiple renal cysts several of which are peripherally calcified. The largest cyst is seen at the inferior right kidney measuring 10.9 cm in diameter. There are calcifications in the central a spects of the kidneys bilaterally likely related to arterial structures. Tiny nonobstructing stone ca nnot be excluded especially at the superior medial right kidney were there is a 3 mm calcification. H ydronephrosis is not seen on either side. There is a 2.7 cm dense mass seen in the lateral posterior inferior right kidney. This is not a simple cyst. This could be a complex cyst or solid mass. It is i ndeterminate on this scan. There is a small 7 mm hypodensity in the anterior aspect left lobe liver l ikely representing a cyst or hemangioma. There is increased density seen dependently within the gallb ladder likely related to vicarious excretion of contrast or milk of calcium. This was not present on the prior exam. There is calcification at the superior lateral aspect of the spleen. This could relat e to vascular calcifications. There does appear to be lack of contrast within the distal splenic zoila ry. The splenic artery is heavily calcified. There is some minimal induration of the fat seen around pancreatic head. There are calcifications of the pancreatic head. The bowel is unremarkable. There is degenerative change in the lumbar spine. PELVIS: The bladder is thickened. This may be secondary to lack of distention. Minimally distended. There are a few scattered sigmoid colon diverticula. CONCLUSION: 1. Extensive calcifications throughout the arterial system including the coronary arteries. 2. Mild bilateral pleural effusions with accompanying areas of atelectasis. 3. Very prominent renal cysts seen bilaterally which may then be peripherally calcified. 4. 2.7 cm iso to hyperdense mass at the posterior lateral inferior right kidney. This represents eith er a complex cyst or solid mass. 5. Mild induration of the fat seen around pancreatic head which could raise the possibility of pancre atitis. There are few calcifications at the pancreatic head. 6. No contrast seen within the distal splenic artery. The spleen appears normal and opacified with co ntrast. Landon Potter MD on April 03, 2017 at 6:55 Board Certified Radiologist. This report was verified electronically.
--- NOTE | 2017-04-03 08:52 | HHI.NPPN ---
Subjective Interval History TAVR is being considered. ID has cleared him for surgery. Dialysis today. Review of Systems General Constitutional: Fatigue Cardiovascular Cardiac: Edema, SNOW Objective Data Data Vital Signs Date Time Temp Pulse Resp B/P (MAP) Pulse Ox O2 Delivery O2 Flow Rate FiO2 04/03/17 08:00 77 04/03/17 08:00 98.3 72 16 141/69 (93) 94 04/03/17 08:00 94 Room Air 04/03/17 07:00 76 04/03/17 06:00 69 04/03/17 05:00 67 04/03/17 04:00 65 04/03/17 04:00 Nasal Cannula 2.00 04/03/17 04:00 98.3 65 18 135/69 (91) 95 04/03/17 03:00 69 04/03/17 02:00 64 04/03/17 01:00 63 04/03/17 00:00 98.0 66 18 107/53 (71) 93 04/03/17 00:00 Room Air 04/03/17 00:00 66 04/02/17 23:00 70 04/02/17 22:00 71 04/02/17 21:00 76 04/02/17 20:00 Room Air 04/02/17 20:00 69 04/02/17 20:00 98.1 69 18 135/60 (85) 92 04/02/17 18:01 76 04/02/17 17:00 70 04/02/17 16:01 98.0 71 18 112/62 (79) 98 04/02/17 15:00 72 04/02/17 14:00 84 04/02/17 13:00 80 04/02/17 12:36 97.7 78 18 124/66 (85) 96 04/02/17 09:00 76 -: 04/02/17 0503 04/02/17 0503 Physical Exam General Appearance: No Acute Distress, Comfortable Eyes Eye Exam: Pupils Equal Throat Throat Exam: Oral Mucosa [place] & Moist Neck Neck Exam: Neck Supple Pulmonary Resp Exam: Breath Sounds Equal, No Distress, Decreased Bases Cardiology CV Exam: Regular, Normal Sinus Rhythm Gastrointestinal/Abdomen GI Exam: Soft, Non-Tender, Bowel Sounds Present Extremeties Extremities Exam: Moderate Edema, Pitting Edema Neurologic Neuro Exam: Alert, Awake, Oriented Psychiatric Psych Exam: Appropriate Responses Assessment/Plan Assessment Summary: Fluid/Volume Overload, Hypertension, End Stage Renal Disease Problem List: (1) Diabetes mellitus ICD Codes: E11.9 - Diabetes mellitus Status: Chronic (2) Hypertension ICD Codes: I10 - Hypertension Status: Chronic (3) Hyperlipidemia ICD Codes: E78.5 - Hyperlipidemia Status: Chronic (4) Anemia ICD Codes: D64.9 - Anemia Status: Acute (5) CKD (chronic kidney disease) stage V requiring chronic dialysis ICD Codes: N18.6 - CKD (chronic kidney disease) stage V requiring chronic dialysis; Z99.2 - Dependence on renal dialysis Status: Chronic (6) Recurrent falls ICD Codes: R29.6 - Repeated falls (7) Lower extremity edema ICD Codes: R60.0 - Localized edema Plan Patient has been on HD 3 times a week, TTS. Admitted with leg edema and recurrent falling. Patient is now on HD, TTS scheduled. Told to restrict salt and fluid intake. Continue Epogen for anemia. On PO Flagyl for C.Difficile. Has severe Aortic stenosis, has been evaluated by cardiothoracic surgery and cardiology. TAVR is being considered. Haider Winters MD Apr 03, 2017 08:52
[2017-04-03] MEDS: DOCUSATE SODIUM 50 MG/SENNA 8.6 MG TAB PO SCH ×2 (09:00→19:42)
[2017-04-03] MEDS: LACTOBACILLUS ACIDOPHILUS TAB PO SCH ×3 (09:00→17:52)
[2017-04-03] MEDS: SODIUM CHLORIDE 0.9% FLUSH 10 ML FLUSH IV FLUSH SCH ×2 (09:00→19:45)
[2017-04-03] MEDS: ALLOPURINOL 100 MG TAB PO SCH (12:06)
[2017-04-03] MEDS: CINACALCET HYDROCHLORIDE 30 MG TAB PO SCH (12:06)
[2017-04-03] MEDS: CARVEDILOL 12.5 MG TAB PO SCH ×2 (12:07→19:44)
[2017-04-03] MEDS: ASPIRIN 81 MG CHEW TAB CHEW SCH (12:07)
--- NOTE | 2017-04-03 15:29 | HHI.NSPN ---
History Chief Complaint: Aching to the neck. Interval History Date of service: Time of service: ~1730 03/29: 76-year-old male with history of diabetes, end-stage renal disease on hemodialysis, hypertension, hypercholesterolemia. He states that he was doing relatively well until L4-5 days ago when he reached over to pick something up and fell. Since that time he noted increasing difficulty with ambulation, unsteady on his feet with relatively mild numbness and weakness in the hands. Also increased edema in the lower extremities for a few days. Mild neck pain. Moderate low back pain. 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 04/02: The patient is awake and alert and watching TV when seen. He states that his neck is aching but he has no pain to the low back at present. He does have numbness to both hands but denies any other numbness to the extremities. He has no pain to the extremities. Exam Results 04/01/17 04/01/17 04/02/17 04/02/17 04/03/17 04/03/17 06:00 18:00 06:00 18:00 06:00 18:00 Intake Total 240 ml 360 ml 960 ml Output Total 50 ml 700 ml 500 ml Balance 240 ml 310 ml -700 ml 960 ml -500 ml Intake Oral 240 ml 360 ml 960 ml Output Urine Total 50 ml Hemodialysis 700 ml 500 ml # Voids 0 2 # Bowel Movements 0 1 Vital Signs Date Time Temp Pulse Resp B/P (MAP) Pulse Ox O2 Delivery O2 Flow Rate FiO2 04/03/17 14:00 69 04/03/17 13:00 74 04/03/17 12:00 75 04/03/17 11:45 98.1 74 18 135/67 (89) 96 04/03/17 11:00 70 04/03/17 08:00 77 04/03/17 08:00 98.3 72 16 141/69 (93) 94 04/03/17 08:00 94 Room Air 04/03/17 07:00 76 04/03/17 06:00 69 04/03/17 05:00 67 04/03/17 04:00 65 04/03/17 04:00 Nasal Cannula 2.00 04/03/17 04:00 98.3 65 18 135/69 (91) 95 04/03/17 03:00 69 04/03/17 02:00 64 04/03/17 01:00 63 04/03/17 00:00 98.0 66 18 107/53 (71) 93 04/03/17 00:00 Room Air 04/03/17 00:00 66 04/02/17 23:00 70 04/02/17 22:00 71 04/02/17 21:00 76 04/02/17 20:00 Room Air 04/02/17 20:00 69 04/02/17 20:00 98.1 69 18 135/60 (85) 92 04/02/17 18:01 76 04/02/17 17:00 70 04/02/17 16:01 98.0 71 18 112/62 (79) 98 04/02/17 15:00 72 04/02/17 14:00 84 04/02/17 13:00 80 04/02/17 12:36 97.7 78 18 124/66 (85) 96 04/02/17 09:00 76 04/02/17 08:15 95 Room Air 04/02/17 08:15 98.1 74 18 126/67 (86) 95 04/02/17 08:00 74 04/02/17 07:01 71 04/02/17 06:00 74 04/02/17 05:47 77 04/02/17 04:00 98.9 80 16 137/78 (97) 94 04/02/17 04:00 80 04/02/17 03:00 74 04/02/17 02:00 74 04/02/17 01:00 78 04/02/17 00:00 78 04/02/17 00:00 98.9 74 16 132/74 (93) 94 04/01/17 23:00 58 04/01/17 22:00 58 04/01/17 20:08 93 21 04/01/17 20:00 98.9 82 16 139/73 (95) 93 04/01/17 19:00 82 04/01/17 19:00 93 Room Air 04/01/17 18:00 68 04/01/17 17:00 68 04/01/17 16:15 97.7 70 16 147/78 (101) 93 04/01/17 16:15 93 Room Air 04/01/17 16:00 65 04/01/17 12:00 98.3 82 18 144/74 (97) 95 04/01/17 08:34 97.7 95 18 142/72 (95) 97 04/01/17 06:19 98.4 84 18 128/59 (82) 95 04/01/17 01:52 98.2 87 16 129/63 (85) 94 03/31/17 20:35 98.4 86 16 126/58 (80) 98 03/31/17 20:02 98 Room Air 03/31/17 17:47 95 21 03/31/17 16:00 98.4 80 18 142/86 (104) 96 Physical Examination GENERAL: Awake & alert, watching TV, readily interacts, affect normal, no apparent distress. NECK: Midline cervical spine mildly TTP, no JVD, trachea midline. MUSCULOSKELETAL: Moves all extremities spontaneously, nontender, no evident clubbing or deformity. Thoracolumbar spine NTTP. NEUROLOGICAL: AAOx3. Speech clear & appropriate. Follow commands w/o difficulty. Sensation decreased to light touch in both hand, o/w intact to light touch to the extremities. Motor strength is 4 to 4+/5 to the deltoids, biceps & triceps bilaterally and 3+ /5 to the hand intrinsics. Motor strength is 5/5 to the lower extremities. Lab, Micro, Other Results Recent Impressions Chest CTA 04/02/17 0000 Signed Impressions: Service Date/Time: Sunday, April 02, 2017 15:37 - CONCLUSION: 1. Extensive calcifications throughout the arterial system including the coronary arteries. 2. Mild bilateral pleural effusions with accompanying areas of atelectasis. 3. Very prominent renal cysts seen bilaterally which may then be peripherally calcified. 4. 2.7 cm iso to hyperdense mass at the posterior lateral inferior right kidney. This represents either a complex cyst or solid mass. 5. Mild induration of the fat seen around pancreatic head which could raise the possibility of pancreatitis. There are few calcifications at the pancreatic head. 6. No contrast seen within the distal splenic artery. The spleen appears normal and opacified with contrast. Landon Potter MD Laboratory Tests Test 04/01/17 05:44 04/02/17 05:03 White Blood Count 6.5 TH/MM3 8.0 TH/MM3 Red Blood Count 2.81 MIL/MM3 2.84 MIL/MM3 Hemoglobin 9.9 GM/DL 9.7 GM/DL Hematocrit 29.3 % 29.6 % Mean Corpuscular Volume 104.1 FL 103.9 FL Mean Corpuscular Hemoglobin 35.1 PG 34.0 PG Mean Corpuscular Hemoglobin Concent 33.8 % 32.8 % Red Cell Distribution Width 14.7 % 14.8 % Platelet Count 146 TH/MM3 171 TH/MM3 Mean Platelet Volume 10.5 FL 9.9 FL Neutrophils (%) (Auto) 72.8 % 75.0 % Lymphocytes (%) (Auto) 13.5 % 11.3 % Monocytes (%) (Auto) 9.3 % 9.2 % Eosinophils (%) (Auto) 3.8 % 3.8 % Basophils (%) (Auto) 0.6 % 0.7 % Neutrophils # (Auto) 4.7 TH/MM3 6.0 TH/MM3 Lymphocytes # (Auto) 0.9 TH/MM3 0.9 TH/MM3 Monocytes # (Auto) 0.6 TH/MM3 0.7 TH/MM3 Eosinophils # (Auto) 0.2 TH/MM3 0.3 TH/MM3 Basophils # (Auto) 0.0 TH/MM3 0.1 TH/MM3 CBC Comment DIFF FINAL DIFF FINAL Differential Comment Blood Urea Nitrogen 53 MG/DL 63 MG/DL Creatinine 9.57 MG/DL 11.21 MG/DL Random Glucose 99 MG/DL 78 MG/DL Total Protein 5.9 GM/DL Albumin 2.7 GM/DL Calcium Level 9.5 MG/DL 9.2 MG/DL Alkaline Phosphatase 66 U/L Aspartate Amino Transf (AST/SGOT) 10 U/L Alanine Aminotransferase (ALT/SGPT) 12 U/L Total Bilirubin 0.6 MG/DL Sodium Level 142 MEQ/L 138 MEQ/L Potassium Level 4.5 MEQ/L 5.0 MEQ/L Chloride Level 102 MEQ/L 99 MEQ/L Carbon Dioxide Level 31.7 MEQ/L 28.9 MEQ/L Anion Gap 8 MEQ/L 10 MEQ/L Estimat Glomerular Filtration Rate 5 ML/MIN 4 ML/MIN Medical Decision Making Impression and Plan Impression: 1. Mostly mild to moderate mid to lower lumbar stenosis. This does not appear to be sufficient to account for his recent gait difficulty. 2. Possible cervical myelopathy. Long tract findings may be obscured by his diabetes The patient is doing well. His pain is controlled and he is neurologically stable. Reviewed labs for today. Haemoglobin stable. Thrombocytopenia resolved. Worsening renal function. Being treated for Clostridium difficile. Plan: Primary management per Hospitalist. Nonsurgical at present due to high cardiac risk, Cardiology following. Infectious Disease following. Needs to be medically cleared before surgery. Neuro checks. Will intermittently follow. Pato Mccarthy Apr 03, 2017 15:29
--- NOTE | 2017-04-03 17:33 | HHI.PR ---
Subjective Remarks 76M admitted for fluid overload in the context of ESRD, improved with dialysis. Has C Diff but tells me he had solid stools today. He complains of neck pain , upset that his surgery was delayed due to cardiac work up, but declines my offer for pain meds. Objective Vitals Vital Signs Date Time Temp Pulse Resp B/P (MAP) Pulse Ox O2 Delivery O2 Flow Rate FiO2 04/03/17 16:00 74 04/03/17 15:00 67 04/03/17 15:00 98.6 69 16 111/47 (68) 91 04/03/17 14:00 69 04/03/17 13:00 74 04/03/17 12:00 75 04/03/17 11:45 98.1 74 18 135/67 (89) 96 04/03/17 11:00 70 04/03/17 08:00 77 04/03/17 08:00 98.3 72 16 141/69 (93) 94 04/03/17 08:00 94 Room Air 04/03/17 07:00 76 04/03/17 06:00 69 04/03/17 05:00 67 04/03/17 04:00 65 04/03/17 04:00 Nasal Cannula 2.00 04/03/17 04:00 98.3 65 18 135/69 (91) 95 04/03/17 03:00 69 04/03/17 02:00 64 04/03/17 01:00 63 04/03/17 00:00 98.0 66 18 107/53 (71) 93 04/03/17 00:00 Room Air 04/03/17 00:00 66 04/02/17 23:00 70 04/02/17 22:00 71 04/02/17 21:00 76 04/02/17 20:00 Room Air 04/02/17 20:00 69 04/02/17 20:00 98.1 69 18 135/60 (85) 92 04/02/17 18:01 76 I/O 04/02/17 04/02/17 04/02/17 04/03/17 04/03/17 04/03/17 07:00 15:00 23:00 07:00 15:00 23:00 Intake Total 120 ml 720 ml 240 ml Output Total 50 ml 700 ml 500 ml Balance 70 ml -700 ml 720 ml 240 ml -500 ml Intake Oral 120 ml 720 ml 240 ml Output Urine Total 50 ml Hemodialysis 700 ml 500 ml # Voids 1 1 # Bowel Movements 1 0 Result Diagram: 04/02/17 0503 04/02/17 0503 Objective Remarks GENERAL: Somewhat grumpy man, weakened SKIN: Warm and dry. HEAD: Normocephalic. EYES: No scleral icterus. No injection or drainage. NECK: Supple, trachea midline. No JVD or lymphadenopathy. CARDIOVASCULAR: Regular rate and rhythm without murmurs, gallops, or rubs. RESPIRATORY: Breath sounds equal bilaterally. No accessory muscle use. GASTROINTESTINAL: Abdomen soft, non-tender, nondistended. MUSCULOSKELETAL: No cyanosis, or edema. BACK: Nontender without obvious deformity. No CVA tenderness. EXTREMITIES: no edema Procedures 04/01/17 cardiac catheterization A/P Problem List: (1) Recurrent falls ICD Code: R29.6 - Repeated falls (2) ESRD (end stage renal disease) on dialysis ICD Code: N18.6 - End stage renal disease; Z99.2 - Dependence on renal dialysis (3) Lower extremity edema ICD Code: R60.0 - Localized edema (4) HTN (hypertension) ICD Code: I10 - HTN (hypertension) Status: Acute Assessment and Plan Chronic Falls, Cervical Stenosis Surgery was recently held due to cardiac issues, now s/p heart cath on 04/01/17 Awaiting neurosurgery recommendations C. Diff Diarrhea resolved, patient claims solid stools today Continue Flagyl, stop date 04/12/17 End Stage Renal Disease Dialysis on Wed//Wed per nephrology Patient admitted for fluid overload. Aortic Valve Stenosis Severe according to ECHO Cardiology recommends cardiothoracic surgeon evaluation, requested Renal Cystic Mass Multiple bilateral renal cysts Outpatient follow up recommended Anemia Of chronic disease, continue Epogen per nephrology Thrombocytopenia No active bleeding, follow lab trends Hypertension Continue coreg and hydralazine DVT Prophylaxis Heparin Anupam Gupta MD Apr 03, 2017 17:33
[2017-04-03] MEDS: ACETAMINOPHEN/HYDROcodone 325 MG/10 MG TAB PO PRN (20:04)
[2017-04-04] VITALS (26 sets, daily range): BP systolic 96–123; BP diastolic 50–66; PULSE 54–77; RESP 14–18; TEMP 98.1–98.3; O2SAT 93–99
[2017-04-04] MEDS: metroNIDAZOLE 500 MG TAB PO SCH ×3 (05:43→22:36)
[2017-04-04] MEDS: hydrALAZINE HCL 10 MG TAB PO SCH ×3 (05:43→22:34)
[2017-04-04] MEDS: LACTOBACILLUS ACIDOPHILUS TAB PO SCH ×3 (09:10→18:00)
[2017-04-04] MEDS: DOCUSATE SODIUM 50 MG/SENNA 8.6 MG TAB PO SCH ×2 (09:10→21:00)
[2017-04-04] MEDS: CARVEDILOL 12.5 MG TAB PO SCH ×2 (09:10→22:35)
[2017-04-04] MEDS: ASPIRIN 81 MG CHEW TAB CHEW SCH (09:10)
[2017-04-04] MEDS: ALLOPURINOL 100 MG TAB PO SCH (09:10)
[2017-04-04] MEDS: CINACALCET HYDROCHLORIDE 30 MG TAB PO SCH (09:10)
[2017-04-04] MEDS: SODIUM CHLORIDE 0.9% FLUSH 10 ML FLUSH IV FLUSH SCH ×2 (09:11→22:37)
--- NOTE | 2017-04-04 09:20 | HHI.NPPN ---
Subjective Interval History Had dialysis yesterday. No new issues today. Notes were reviewed. Review of Systems General Constitutional: Fatigue Cardiovascular Cardiac: Edema, SNOW Objective Data Data Vital Signs Date Time Temp Pulse Resp B/P (MAP) Pulse Ox O2 Delivery O2 Flow Rate FiO2 04/04/17 09:07 94 21 04/04/17 06:00 57 04/04/17 05:00 60 04/04/17 04:00 98.2 59 18 118/57 (77) 99 04/04/17 04:00 Nasal Cannula 2.00 04/04/17 04:00 59 04/04/17 03:00 61 04/04/17 02:00 62 04/04/17 01:00 60 04/04/17 00:00 54 04/04/17 00:00 98.1 54 18 96/50 (65) 93 04/04/17 00:00 Nasal Cannula 2.00 04/03/17 23:00 63 04/03/17 22:00 69 04/03/17 21:00 97 Nasal Cannula 2.00 04/03/17 21:00 76 04/03/17 20:00 75 04/03/17 20:00 98.3 75 18 109/58 (75) 93 04/03/17 20:00 Room Air 04/03/17 18:00 79 04/03/17 17:00 76 04/03/17 16:00 74 04/03/17 15:00 67 04/03/17 15:00 98.6 69 16 111/47 (68) 91 04/03/17 14:00 69 04/03/17 13:00 74 04/03/17 12:00 75 04/03/17 11:45 98.1 74 18 135/67 (89) 96 04/03/17 11:00 70 -: 04/02/17 0503 04/02/17 0503 Physical Exam General Appearance: No Acute Distress, Comfortable Eyes Eye Exam: Pupils Equal Throat Throat Exam: Oral Mucosa [place] & Moist Neck Neck Exam: Neck Supple Pulmonary Resp Exam: Breath Sounds Equal, No Distress, Decreased Bases Cardiology CV Exam: Regular, Normal Sinus Rhythm Gastrointestinal/Abdomen GI Exam: Soft, Non-Tender, Bowel Sounds Present Extremeties Extremities Exam: Moderate Edema, Pitting Edema Neurologic Neuro Exam: Alert, Awake, Oriented Psychiatric Psych Exam: Appropriate Responses Assessment/Plan Assessment Summary: Fluid/Volume Overload, Hypertension, End Stage Renal Disease Problem List: (1) Diabetes mellitus ICD Codes: E11.9 - Diabetes mellitus Status: Chronic (2) Hypertension ICD Codes: I10 - Hypertension Status: Chronic (3) Hyperlipidemia ICD Codes: E78.5 - Hyperlipidemia Status: Chronic (4) Anemia ICD Codes: D64.9 - Anemia Status: Acute (5) CKD (chronic kidney disease) stage V requiring chronic dialysis ICD Codes: N18.6 - CKD (chronic kidney disease) stage V requiring chronic dialysis; Z99.2 - Dependence on renal dialysis Status: Chronic (6) Recurrent falls ICD Codes: R29.6 - Repeated falls (7) Lower extremity edema ICD Codes: R60.0 - Localized edema Plan Patient has been on HD 3 times a week, TTS. Admitted with fluid overload and recurrent falling. Patient is now on HD, TTS scheduled. Continue Epogen for anemia. C.diff colitis is improving clinically. Has severe Aortic stenosis, has been evaluated by cardiothoracic surgery and cardiology. TAVR is being considered. Has been evaluated by neurosurgery for cervical stenosis, no surgery is planned. Haider Winters MD Apr 04, 2017 09:20
--- NOTE | 2017-04-04 09:55 | PD.CARD.PN ---
Subjective Subjective Remarks Doing well, no complaints Bowel movements solid Objective Medications Current Medications Medications (Trade) Dose Ordered Sig/Jamal Route Start Time Stop Time Status Last Admin (NS Flush) 2 ml UNSCH PRN IV FLUSH 03/25/17 22:45 (NS Flush) 2 ml BID IV FLUSH 03/26/17 09:00 04/04/17 09:11 (Zofran Inj) 4 mg Q6H PRN IVP 03/25/17 22:45 (Tylenol) 650 mg Q6H PRN PO 03/25/17 22:45 ([place] 5-325 Mg) 1 tab Q4H PRN PO 03/25/17 22:45 04/02/17 20:25 ([place] 10-325 Mg) 1 tab Q4H PRN PO 03/25/17 22:45 04/03/17 20:04 (Danielle-Colace) 1 tab BID PO 03/26/17 09:00 04/04/17 09:10 (Milk Of Magnesia Liq) 30 ml Q12H PRN PO 03/25/17 22:45 03/29/17 05:53 (Senokot) 17.2 mg Q12H PRN PO 03/25/17 22:45 (Dulcolax Supp) 10 mg DAILY PRN RECTAL 03/25/17 22:45 (Lactulose Liq) 30 ml DAILY PRN PO 03/25/17 22:45 (Zyloprim) 100 mg DAILY PO 03/26/17 09:00 04/04/17 09:10 (Coreg) 25 mg BID PO 03/26/17 09:00 04/04/17 09:10 (Sensipar) 30 mg DAILY PO 03/26/17 09:00 04/04/17 09:10 (Duoneb Neb) 1 ampule Q4HR NEB PRN NEB 03/26/17 01:45 (Apresoline) 10 mg Q8HR PO 03/26/17 14:00 04/04/17 05:43 Albumin Human 100 ml @ 60 mls/hr UNSCH PRN IV 03/26/17 13:15 03/27/17 08:43 (Tums Chew) 500 mg Q2H PRN CHEW 03/28/17 09:45 03/28/17 10:16 (Imodium) 2 mg Q6H PRN PO 03/28/17 15:30 03/31/17 16:37 (Lactinex) 1 tab TID PO 03/29/17 13:00 04/04/17 09:10 (Flagyl) 500 mg Q8HR PO 03/29/17 15:00 04/04/17 05:43 (Aspirin Chew) 81 mg DAILY CHEW 04/02/17 09:00 04/04/17 09:10 Vital Signs / I&O Vital Signs Date Time Temp Pulse Resp B/P (MAP) Pulse Ox O2 Delivery O2 Flow Rate FiO2 04/04/17 09:07 94 21 04/04/17 06:00 57 04/04/17 05:00 60 04/04/17 04:00 98.2 59 18 118/57 (77) 99 04/04/17 04:00 Nasal Cannula 2.00 04/04/17 04:00 59 04/04/17 03:00 61 04/04/17 02:00 62 04/04/17 01:00 60 04/04/17 00:00 54 04/04/17 00:00 98.1 54 18 96/50 (65) 93 04/04/17 00:00 Nasal Cannula 2.00 04/03/17 23:00 63 04/03/17 22:00 69 04/03/17 21:00 97 Nasal Cannula 2.00 04/03/17 21:00 76 04/03/17 20:00 75 04/03/17 20:00 98.3 75 18 109/58 (75) 93 04/03/17 20:00 Room Air 04/03/17 18:00 79 04/03/17 17:00 76 04/03/17 16:00 74 04/03/17 15:00 67 04/03/17 15:00 98.6 69 16 111/47 (68) 91 04/03/17 14:00 69 04/03/17 13:00 74 04/03/17 12:00 75 04/03/17 11:45 98.1 74 18 135/67 (89) 96 04/03/17 11:00 70 I/O 04/03/17 04/03/17 04/03/17 04/04/17 04/04/17 04/04/17 07:00 15:00 23:00 07:00 15:00 23:00 Intake Total 240 ml 720 ml 240 ml Output Total 500 ml Balance 240 ml -500 ml 720 ml 240 ml Intake Oral 240 ml 720 ml 240 ml Hemodialysis 500 ml # Voids 1 0 # Bowel Movements 0 0 Physical Exam GENERAL: NAD, AAOx3 SKIN: Warm and dry. HEAD: Atraumatic. Normocephalic. EYES: Pupils equal and round. No scleral icterus. No injection or drainage. ENT: No nasal bleeding or discharge. Mucous membranes pink and moist. NECK: Trachea midline. No JVD. CARDIOVASCULAR: Regular rate and rhythm. 3/6 crescendo-decrescendo murmur to the RSB RESPIRATORY: No accessory muscle use. Clear to auscultation. Breath sounds equal bilaterally. GASTROINTESTINAL: Abdomen soft, non-tender, nondistended. Hepatic and splenic margins not palpable. MUSCULOSKELETAL: Extremities without clubbing, cyanosis, or edema. No obvious deformities. Right femoral no hematoma or bruit, distal pulses intact NEUROLOGICAL: Awake and alert. No obvious cranial nerve deficits. Motor grossly within normal limits. Five out of 5 muscle strength in the arms and legs. Normal speech. PSYCHIATRIC: Appropriate mood and affect; insight and judgment normal. Assessment and Plan Problem List: (1) CAD (coronary artery disease) ICD Codes: I25.10 - Atherosclerotic heart disease of [place] coronary artery without angina pectoris (2) Aortic valvar stenosis ICD Codes: I35.0 - Nonrheumatic aortic (valve) stenosis (3) Anemia ICD Codes: D64.9 - Anemia Status: Acute (4) Thrombocytopenia ICD Codes: D69.6 - Thrombocytopenia, unspecified (5) ESRD (end stage renal disease) on dialysis ICD Codes: N18.6 - End stage renal disease; Z99.2 - Dependence on renal dialysis (6) Recurrent falls ICD Codes: R29.6 - Repeated falls (7) Hypertension ICD Codes: I10 - Hypertension Status: Chronic Assessment and Plan 1) Severe Discussed with CT surgery 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 Fragoso, will await further work up for aortic stenosis 4) No further cardiovascular work up at this time Plan for discharge and TAVR coordinator follow up Discussed with primary and CT surgery Problem Qualifiers (1) Aortic valvar stenosis: Qualified Codes: I35.0 - Nonrheumatic aortic (valve) stenosis Jeffrey Ortiz DO Apr 04, 2017 09:55
--- NOTE | 2017-04-04 15:27 | HHI.PR ---
Subjective Remarks Pt was scheduled for discharge to SNF/Rehab today, however, he needs dental work and does not have a clear plan for obtaining that as an outpatient. The SNF could not outline a plan that was reliable. He is willing to wait till Wednesday when we can hopefully line up a dental appointment through his [employer] insurance plan. The dental work is medically necessary as a precursor to valve replacement for his severe aortic stenosis. Objective Vitals Vital Signs Date Time Temp Pulse Resp B/P (MAP) Pulse Ox O2 Delivery O2 Flow Rate FiO2 04/04/17 12:00 67 04/04/17 11:00 68 04/04/17 11:00 69 16 111/56 (74) 94 04/04/17 10:00 65 04/04/17 09:07 94 21 04/04/17 09:00 66 04/04/17 08:00 98.1 64 16 123/66 (85) 94 04/04/17 08:00 69 04/04/17 08:00 94 Room Air 04/04/17 07:00 59 04/04/17 06:00 57 04/04/17 05:00 60 04/04/17 04:00 98.2 59 18 118/57 (77) 99 04/04/17 04:00 Nasal Cannula 2.00 04/04/17 04:00 59 04/04/17 03:00 61 04/04/17 02:00 62 04/04/17 01:00 60 04/04/17 00:00 54 04/04/17 00:00 98.1 54 18 96/50 (65) 93 04/04/17 00:00 Nasal Cannula 2.00 04/03/17 23:00 63 04/03/17 22:00 69 04/03/17 21:00 97 Nasal Cannula 2.00 04/03/17 21:00 76 04/03/17 20:00 75 04/03/17 20:00 98.3 75 18 109/58 (75) 93 04/03/17 20:00 Room Air 04/03/17 18:00 79 04/03/17 17:00 76 04/03/17 16:00 74 I/O 04/03/17 04/03/17 04/03/17 04/04/17 04/04/17 04/04/17 07:00 15:00 23:00 07:00 15:00 23:00 Intake Total 240 ml 720 ml 240 ml Output Total 500 ml Balance 240 ml -500 ml 720 ml 240 ml Intake Oral 240 ml 720 ml 240 ml Hemodialysis 500 ml # Voids 1 0 # Bowel Movements 0 0 Result Diagram: 04/02/17 0503 04/02/17 0503 Objective Remarks GENERAL: In a better mood today, weakened SKIN: Warm and dry. HEAD: Normocephalic. EYES: No scleral icterus. No injection or drainage. NECK: Supple, trachea midline. No JVD or lymphadenopathy. CARDIOVASCULAR: Regular rate and rhythm without murmurs, gallops, or rubs. RESPIRATORY: Breath sounds equal bilaterally. No accessory muscle use. GASTROINTESTINAL: Abdomen soft, non-tender, nondistended. MUSCULOSKELETAL: No cyanosis, or edema. BACK: Nontender without obvious deformity. No CVA tenderness. EXTREMITIES: no edema Procedures 04/01/17 cardiac catheterization A/P Problem List: (1) Recurrent falls ICD Code: R29.6 - Repeated falls (2) ESRD (end stage renal disease) on dialysis ICD Code: N18.6 - End stage renal disease; Z99.2 - Dependence on renal dialysis (3) Lower extremity edema ICD Code: R60.0 - Localized edema (4) HTN (hypertension) ICD Code: I10 - HTN (hypertension) Status: Acute Assessment and Plan Chronic Falls, Cervical Stenosis Surgery was recently held due to cardiac issues, now s/p heart cath on 04/01/17 He will need his aortic valve replaced prior to neurosurgical intervention, and he needs 10 teeth pulled before the aortic valve replacement C. Diff Solid stools currently Continue Flagyl, stop date 04/12/17 End Stage Renal Disease Dialysis on /Wed per nephrology Patient admitted for fluid overload. Aortic Valve Stenosis Severe according to ECHO Needs TAVR, but needs teeth pulled prior to that surgery Renal Cystic Mass Multiple bilateral renal cysts Outpatient follow up recommended Anemia Of chronic disease, continue Epogen per nephrology Thrombocytopenia No active bleeding, follow lab trends Hypertension Continue coreg and hydralazine DVT Prophylaxis Heparin Anupam Gupta MD Apr 04, 2017 15:27
[2017-04-05] VITALS (24 sets, daily range): BP systolic 111–120; BP diastolic 59–66; PULSE 60–74; RESP 16–18; TEMP 97.7–98.7; O2SAT 92–96
[2017-04-05] MEDS: metroNIDAZOLE 500 MG TAB PO SCH ×3 (05:52→22:41)
[2017-04-05] MEDS: hydrALAZINE HCL 10 MG TAB PO SCH ×3 (05:52→22:00)
[2017-04-05] MEDS: ASPIRIN 81 MG CHEW TAB CHEW SCH (08:20)
[2017-04-05] MEDS: SODIUM CHLORIDE 0.9% FLUSH 10 ML FLUSH IV FLUSH SCH ×2 (08:20→22:42)
[2017-04-05] MEDS: DOCUSATE SODIUM 50 MG/SENNA 8.6 MG TAB PO SCH ×2 (08:20→21:00)
[2017-04-05] MEDS: CARVEDILOL 12.5 MG TAB PO SCH ×2 (08:20→22:41)
[2017-04-05] MEDS: ALLOPURINOL 100 MG TAB PO SCH (08:20)
[2017-04-05] MEDS: CINACALCET HYDROCHLORIDE 30 MG TAB PO SCH (08:20)
[2017-04-05] MEDS: LACTOBACILLUS ACIDOPHILUS TAB PO SCH ×3 (08:20→18:28)
--- NOTE | 2017-04-05 10:57 | HHI.NPPN ---
Subjective Interval History Notes were reviewed. Needs dental work before TAVR. Review of Systems General Constitutional: Fatigue Cardiovascular Cardiac: Edema, SNOW Objective Data Data 04/05/17 04/06/17 19:00 07:00 Intake Total 480 ml Output Total 0 ml Balance 480 ml Intake Oral 480 ml Output Urine Total 0 ml # Bowel Movements 0 Vital Signs Date Time Temp Pulse Resp B/P (MAP) Pulse Ox O2 Delivery O2 Flow Rate FiO2 04/05/17 08:01 98.0 71 18 114/66 (82) 95 04/05/17 08:01 95 Room Air 04/05/17 07:01 71 04/05/17 06:00 66 04/05/17 05:00 68 04/05/17 04:00 66 04/05/17 03:48 98.7 66 16 114/59 (77) 92 04/05/17 03:00 66 04/05/17 02:00 60 04/05/17 01:00 60 04/05/17 00:00 66 04/05/17 00:00 98.1 62 16 120/65 (83) 92 04/04/17 23:00 72 04/04/17 22:00 68 04/04/17 21:00 64 04/04/17 20:49 94 Room Air 04/04/17 20:44 98.1 63 16 116/57 (76) 94 04/04/17 20:00 62 04/04/17 19:00 64 04/04/17 18:00 65 04/04/17 17:00 77 04/04/17 16:00 63 04/04/17 15:00 68 04/04/17 15:00 63 14 119/60 (79) 93 04/04/17 14:00 64 04/04/17 13:00 63 04/04/17 12:00 67 04/04/17 11:00 68 04/04/17 11:00 69 16 111/56 (74) 94 -: 04/02/17 0503 04/02/17 0503 Physical Exam General Appearance: No Acute Distress, Comfortable Eyes Eye Exam: Pupils Equal Throat Throat Exam: Oral Mucosa [place] & Moist Neck Neck Exam: Neck Supple Pulmonary Resp Exam: Breath Sounds Equal, No Distress, Decreased Bases Cardiology CV Exam: Regular, Normal Sinus Rhythm Gastrointestinal/Abdomen GI Exam: Soft, Non-Tender, Bowel Sounds Present Extremeties Extremities Exam: Moderate Edema, Pitting Edema Neurologic Neuro Exam: Alert, Awake, Oriented Psychiatric Psych Exam: Appropriate Responses Assessment/Plan Assessment Summary: Fluid/Volume Overload, Hypertension, End Stage Renal Disease Problem List: (1) Diabetes mellitus ICD Codes: E11.9 - Diabetes mellitus Status: Chronic (2) Hypertension ICD Codes: I10 - Hypertension Status: Chronic (3) Hyperlipidemia ICD Codes: E78.5 - Hyperlipidemia Status: Chronic (4) Anemia ICD Codes: D64.9 - Anemia Status: Acute (5) CKD (chronic kidney disease) stage V requiring chronic dialysis ICD Codes: N18.6 - CKD (chronic kidney disease) stage V requiring chronic dialysis; Z99.2 - Dependence on renal dialysis Status: Chronic (6) Recurrent falls ICD Codes: R29.6 - Repeated falls (7) Lower extremity edema ICD Codes: R60.0 - Localized edema Plan Patient has been on HD 3 times a week, TTS. Repeat labs tomorrow. Admitted with fluid overload and recurrent falling. Continue Epogen for anemia. C.diff colitis is improving clinically. Has severe Aortic stenosis, has been evaluated by cardiothoracic surgery and cardiology. TAVR is being considered. Has been evaluated by neurosurgery for cervical stenosis, no surgery is planned. Haider Winters MD Apr 05, 2017 10:57
--- NOTE | 2017-04-05 16:14 | HHI.PR ---
Subjective Remarks Pt today points out that his left arm is swollen. He had some tape placed tightly over the shunt. He denies any tenderness. Objective Vitals Vital Signs Date Time Temp Pulse Resp B/P (MAP) Pulse Ox O2 Delivery O2 Flow Rate FiO2 04/05/17 15:30 97.7 70 18 111/66 (81) 95 04/05/17 13:01 72 04/05/17 12:00 66 04/05/17 11:15 98.1 68 18 119/63 (81) 94 04/05/17 11:00 69 04/05/17 10:00 70 04/05/17 09:00 66 04/05/17 08:01 98.0 71 18 114/66 (82) 95 04/05/17 08:01 95 Room Air 04/05/17 08:00 66 04/05/17 07:01 71 04/05/17 06:00 66 04/05/17 05:00 68 04/05/17 04:00 66 04/05/17 03:48 98.7 66 16 114/59 (77) 92 04/05/17 03:00 66 04/05/17 02:00 60 04/05/17 01:00 60 04/05/17 00:00 66 04/05/17 00:00 98.1 62 16 120/65 (83) 92 04/04/17 23:00 72 04/04/17 22:00 68 04/04/17 21:00 64 04/04/17 20:49 94 Room Air 04/04/17 20:44 98.1 63 16 116/57 (76) 94 04/04/17 20:00 62 04/04/17 19:00 64 04/04/17 18:00 65 04/04/17 17:00 77 04/04/17 16:00 63 I/O 04/04/17 04/04/17 04/04/17 04/05/17 04/05/17 04/05/17 07:00 15:00 23:00 07:00 15:00 23:00 Intake Total 240 ml 600 ml 480 ml Output Total 0 ml Balance 240 ml 600 ml 480 ml Intake Oral 240 ml 600 ml 480 ml Output Urine Total 0 ml # Voids 0 # Bowel Movements 0 0 Result Diagram: 04/02/17 05004/02/17 050 Objective Remarks GENERAL: In a better mood today, weakened SKIN: Warm and dry. HEAD: Normocephalic. EYES: No scleral icterus. No injection or drainage. NECK: Supple, trachea midline. No JVD or lymphadenopathy. CARDIOVASCULAR: Regular rate and rhythm without murmurs, gallops, or rubs. RESPIRATORY: Breath sounds equal bilaterally. No accessory muscle use. GASTROINTESTINAL: Abdomen soft, non-tender, nondistended. MUSCULOSKELETAL: No cyanosis, or edema. BACK: Nontender without obvious deformity. No CVA tenderness. EXTREMITIES: Edema in left forearm, wrist shunt taped tightly that may have provided back pressure edema. No warmth or erythema. Procedures 04/01/17 cardiac catheterization A/P Problem List: (1) Recurrent falls ICD Code: R29.6 - Repeated falls (2) ESRD (end stage renal disease) on dialysis ICD Code: N18.6 - End stage renal disease; Z99.2 - Dependence on renal dialysis (3) Lower extremity edema ICD Code: R60.0 - Localized edema (4) HTN (hypertension) ICD Code: I10 - HTN (hypertension) Status: Acute Assessment and Plan Chronic Falls, Cervical Stenosis Surgery was recently held due to cardiac issues, now s/p heart cath on 04/01/17 He will need his aortic valve replaced prior to neurosurgical intervention, and he needs 10 teeth pulled before the aortic valve replacement C. Diff Solid stools currently Continue Flagyl, stop date 04/12/17 End Stage Renal Disease Dialysis on Wed//Wed per nephrology Patient admitted for fluid overload. Aortic Valve Stenosis Severe according to ECHO Needs TAVR, but needs teeth pulled prior to that surgery Poor Dentition Needs teeth pulled prior to TAVR. Oromaxofacial consult Left Arm Swelling Most likely back pressure edema from tightly taped wrist shunt. Tape removed, will monitor Renal Cystic Mass Multiple bilateral renal cysts Outpatient follow up recommended Anemia Of chronic disease, continue Epogen per nephrology Thrombocytopenia No active bleeding, follow lab trends Hypertension Continue coreg and hydralazine DVT Prophylaxis Heparin Anupam Gupta MD Apr 05, 2017 16:14
[2017-04-05] MEDS: ACETAMINOPHEN/HYDROcodone 325 MG/10 MG TAB PO PRN (22:41)
[2017-04-06] VITALS (22 sets, daily range): BP systolic 101–133; BP diastolic 62–73; PULSE 58–84; RESP 18; TEMP 98.1–98.3; O2SAT 95–98
[2017-04-06] MEDS: metroNIDAZOLE 500 MG TAB PO SCH ×3 (05:46→23:02)
[2017-04-06] MEDS: hydrALAZINE HCL 10 MG TAB PO SCH ×3 (05:46→22:00)
[2017-04-06 07:22] LABS: ALBUMIN 2.4 GM/DL (3.4-5.0); BICARBONATE 29.7 MEQ/L (21.0-32.0); CALCIUM 9.2 MG/DL (8.5-10.1); CREATININE 9.99 MG/DL (0.60-1.30); PHOSPHORUS 6.2 MG/DL (2.5-4.9)
[2017-04-06] MEDS: ASPIRIN 81 MG CHEW TAB CHEW SCH (08:00)
[2017-04-06] MEDS: CINACALCET HYDROCHLORIDE 30 MG TAB PO SCH (08:00)
[2017-04-06] MEDS: SODIUM CHLORIDE 0.9% FLUSH 10 ML FLUSH IV FLUSH SCH ×2 (08:00→23:03)
[2017-04-06] MEDS: ALLOPURINOL 100 MG TAB PO SCH (08:00)
[2017-04-06] MEDS: CARVEDILOL 12.5 MG TAB PO SCH ×2 (08:00→23:02)
[2017-04-06] MEDS: LACTOBACILLUS ACIDOPHILUS TAB PO SCH ×3 (08:00→18:23)
[2017-04-06] MEDS: DOCUSATE SODIUM 50 MG/SENNA 8.6 MG TAB PO SCH ×2 (08:01→23:02)
--- NOTE | 2017-04-06 08:40 | PD.FRAIL ---
Date: Apr 06, 2017 Height: 175.26 cm Weight: 82.5 kg BMI: 26.9 Assessment Performed: Inpatient Days in Hospital at Exam: 5 Albumin 04/06/17 06:15: Albumin 2.4 Pass/Fail: Fail Lewis Activities Daily Living Lewis ADL Score: Bathing(bathes self/help in single area): Donald (1), Dressing(gets/puts clothes on self): [place] (1), Toileting(goes without help): Donald ( 1), Transferring(unassisted or [facility] aides): Donald (1), Continence( complete self-control): Donald (1), Feeding(self, prep by another allowed) : Donald (1), Total: 6 Pass/Fail: Pass Pt Skilled Strength Grasp 1: 16 Grasp 2: 14 Grasp 3: 16 Average: 15.3 Pass/Fail: Fail 15-Foot Walk Pass/Fail: Fail (unable to safely walk at this time. usually walks with a cane , only able to stand at bedside at this time) Total Frailty Total Frailty (out of 4): 3 Frailty Index Score Reference Pt Skilled Strength: BMI: <=24 Cutoff for clinical lab specialist strength(Kg): <=29 BMI: 24.1-28 Cutoff for clinical lab specialist strength(Kg): <=30 BMI: >28 Cutoff for clinical lab specialist strength(Kg): <=32 15-Foot Walk: Height: <=173 cm 15-Foot Walk Cutoff Time: >=7 seconds Height: >173 cm 15-Foot Walk Cutoff Time: >=6 seconds Syed Huerta RN Apr 06, 2017 08:40
--- NOTE | 2017-04-06 09:25 | HHI.NPPN ---
Subjective General Problems: Anemia Renal Failure: Chronic, End Stage Renal Disease Interval History Seen during dialysis this morning. No acute complaints. (Beena Hancock) Review of Systems General Constitutional: Fatigue (Beena Hancock) Cardiovascular Cardiac: Edema, SNOW (Beena Hancock) Objective Data Data Vital Signs Date Time Temp Pulse Resp B/P (MAP) Pulse Ox O2 Delivery O2 Flow Rate FiO2 04/06/17 07:01 68 04/06/17 06:11 70 04/06/17 05:15 64 04/06/17 04:00 98.1 68 18 120/73 (89) 96 04/06/17 04:00 58 04/06/17 03:00 63 04/06/17 02:00 74 04/06/17 00:28 98.2 68 18 101/67 (78) 95 04/05/17 20:00 96 Room Air 04/05/17 20:00 98.0 71 18 118/65 (82) 96 04/05/17 18:00 74 04/05/17 17:00 66 04/05/17 16:01 64 04/05/17 15:30 97.7 70 18 111/66 (81) 95 04/05/17 15:00 68 04/05/17 14:00 74 04/05/17 13:01 72 04/05/17 12:00 66 04/05/17 11:15 98.1 68 18 119/63 (81) 94 04/05/17 11:00 69 04/05/17 10:00 70 (Beena Hancock) -: 04/02/17 0503 04/06/17 0615 Imaging Last Impressions Chest CTA 04/02/17 0000 Signed Impressions: Service Date/Time: Sunday, April 02, 2017 15:37 - CONCLUSION: 1. Extensive calcifications throughout the arterial system including the coronary arteries. 2. Mild bilateral pleural effusions with accompanying areas of atelectasis. 3. Very prominent renal cysts seen bilaterally which may then be peripherally calcified. 4. 2.7 cm iso to hyperdense mass at the posterior lateral inferior right kidney. This represents either a complex cyst or solid mass. 5. Mild induration of the fat seen around pancreatic head which could raise the possibility of pancreatitis. There are few calcifications at the pancreatic head. 6. No contrast seen within the distal splenic artery. The spleen appears normal and opacified with contrast. Landon Potter MD Cervical Spine CT 03/31/17 Signed Impressions: Service Date/Time: Friday, March 31, 2017 12:15 - CONCLUSION: 1. Degenerative anterolisthesis at C2-3 and C7-T1 secondary to facet arthropathy. 2. Severe degenerative disc disease as described. 3. No evidence of focal disc herniation, significant spinal stenosis, foraminal encroachment or acute fracture Ronald Lott MD Thoracic Spine MRI 03/30/17 Signed Impressions: Service Date/Time: Thursday, March 30, 2017 16:03 - CONCLUSION: 1. Multilevel degenerative spondylosis of the thoracic spine with mild to moderate central canal stenosis at T1-2. Scot Guevara MD Renal Ultrasound 03/30/17 Signed Impressions: Service Date/Time: Thursday, March 30, 2017 15:20 - CONCLUSION: 1. Bilateral echogenic kidneys characteristic of chronic medical renal disease. 2. Multiple prominent bilateral renal cysts. Not significantly changed compared to the prior exam. 3. No evidence of hydronephrosis. Billy Roberts MD Lumbar Spine MRI 03/30/17 Signed Impressions: Service Date/Time: Thursday, March 30, 2017 16:03 - CONCLUSION: 1. No acute bony abnormality or disc herniation 2. Moderate to severe degenerative disc disease. 3. Moderate right foraminal stenosis at L4-5 Ronald Lott MD Cervical Spine MRI 03/30/17 Signed Impressions: Service Date/Time: Thursday, March 30, 2017 16:03 - CONCLUSION: . 1. Advanced multilevel degenerative spondylosis of the cervical spine with multilevel moderate to severe cervical canal stenosis, as above. Scot Guevara MD Lumbar Spine CT 03/29/17 Signed Impressions: Service Date/Time: Wednesday, March 29, 2017 10:07 - CONCLUSION: Extensive degenerative changes throughout the lumbar spine accentuated by scoliosis. There is significant neuroforaminal encroachment as well as changes in the facets Noncontrast CT scan of the abdomen is suggested further evaluate the large apparent cystic mass on the right. Williams Mahajan MD FACR Abdomen/Pelvis CT 03/29/17 0000 Signed Impressions: Service Date/Time: Wednesday, March 29, 2017 15:33 - CONCLUSION: 1. Inflammatory changes about the pancreatic head and in the central mesenteric fat indicating possible acute pancreatitis. No organized fluid collections. 2. Colonic diverticulosis. No evidence of acute diverticulitis. 3. 11 cm calcified cyst in the right kidney slightly smaller than on comparison ultrasound study of 2013. 4. Indeterminate 2.7 cm intermediate density mass in the midpole right kidney with no correlate on ultrasound 2013. May represent a complex cyst or solid mass. This could be further evaluated with renal ultrasound. 5. Diffuse severe arterial calcification. 6. Small bilateral pleural effusions. Gray Jimenez MD Lower Extremity Ultrasound 03/25/171809 Signed Impressions: Service Date/Time: , March 25, 2017 18:21 - CONCLUSION: 1. Negative for deep venous thrombosis bilateral lower extremities. Dillan Leonard MD Chest X-Ray 03/25/171809 Signed Impressions: Service Date/Time: March 19:18 - CONCLUSION: Patchy bilateral lower lung infiltrates and possible left pleural effusion. Dillan Leonard MD (Beena Hancock) Physical Exam General Appearance: Well Developed, No Acute Distress, Comfortable, Malnourished (Beena Hancock B. CAREER DISCOVERY TEACHER) Eyes Eye Exam: Pupils Equal (Beena Hancock BFauzia CAREER DISCOVERY TEACHER) Throat Throat Exam: Oral Mucosa [place] & Moist (Beena Hancock BFauzia CAREER DISCOVERY TEACHER) Neck Neck Exam: Neck Supple (Beena Hancock B. CAREER DISCOVERY TEACHER) Pulmonary Resp Exam: Breath Sounds Equal, No Distress, Rhonchi, Decreased Bases (Beena Hancock B. CAREER DISCOVERY TEACHER) Cardiology CV Exam: Regular, Normal Sinus Rhythm, Murmur (Beena Hancock B. CAREER DISCOVERY TEACHER) Gastrointestinal/Abdomen GI Exam: Soft, Non-Tender, Bowel Sounds Present (Beena Hancock B. CAREER DISCOVERY TEACHER) Musculoskeletal MS Exam: Joints Intact, Unable to Ambulate (Beena Hancock B. CAREER DISCOVERY TEACHER) Integumentary Skin Exam: Warm, Dry, Intact (Beena Hancock B. CAREER DISCOVERY TEACHER) Extremeties Extremities Exam: No Edema, Pedal Pulses Palpable (Beena Hancock) Neurologic Neuro Exam: Alert, Awake, Oriented, Speech Clear, Moving All Extremities (Beena Hancock) Psychiatric Psych Exam: Appropriate Responses (Beena Hancock) Assessment/Plan Discussed Condition With: Patient Assessment Summary: Anemia of CKD, Fluid/Volume Overload, Hypertension, End Stage Renal Disease Problem List: (1) CKD (chronic kidney disease) stage V requiring chronic dialysis ICD Codes: N18.6 - CKD (chronic kidney disease) stage V requiring chronic dialysis; Z99.2 - Dependence on renal dialysis Status: Chronic Plan: Seen during dialysis today on a 2K, 350 BFR, goal 1.5 L UF Intermittently monitor renal profile. High protein diet ordered. AVF left arm functions well (2) Aortic valvar stenosis ICD Codes: I35.0 - Nonrheumatic aortic (valve) stenosis Plan: No intervention planned at this time. Needs dental work prior to surgery. (3) Hypertension ICD Codes: I10 - Hypertension Status: Chronic Plan: Blood pressure is acceptable, continue ordered medications. (4) Anemia ICD Codes: D64.9 - Anemia Status: Acute Plan: Epogen ordered with dialysis (5) Diabetes mellitus ICD Codes: E11.9 - Diabetes mellitus Status: Chronic Plan: His blood sugar has been stable. Continue to monitor, insulin if needed. (6) Recurrent falls ICD Codes: R29.6 - Repeated falls Plan: May need PT/OT and SNF at discharge (7) Lower extremity edema ICD Codes: R60.0 - Localized edema Plan: Improved Follow fluid status, adjust UF as tolerated. Plan (Beena Hancock) Plan patient was seen and examined. Agree with above assessment and plan. (Haider Winters MD) Problem Qualifiers (1) Aortic valvar stenosis: Qualified Codes: I35.0 - Nonrheumatic aortic (valve) stenosis Beena Hancock Apr 06, 2017 09:25 Haider Winters MD Apr 06, 2017 20:49
[2017-04-06] MEDS ORDERED: EPOETIN ALFA 10,000 UNITS/ML VIAL IV PUSH PRN (09:30)
--- NOTE | 2017-04-06 18:47 | HHI.PR ---
Subjective Remarks Pt feels ready to go to a SNF. Two consults for tooth extraction were declined. Objective Vitals Vital Signs Date Time Temp Pulse Resp B/P (MAP) Pulse Ox O2 Delivery O2 Flow Rate FiO2 04/06/17 18:01 77 04/06/17 17:01 84 04/06/17 16:00 72 04/06/17 15:15 98.1 71 18 128/64 (85) 98 04/06/17 15:00 67 04/06/17 14:00 68 04/06/17 13:00 72 04/06/17 11:45 98.2 61 18 133/66 (88) 98 04/06/17 08:01 98.1 73 18 129/66 (87) 96 04/06/17 08:01 95 Room Air 04/06/17 08:00 68 04/06/17 07:01 68 04/06/17 06:11 70 04/06/17 05:15 64 04/06/17 04:00 98.1 68 18 120/73 (89) 96 04/06/17 04:00 58 04/06/17 03:00 63 04/06/17 02:00 74 04/06/17 00:28 98.2 68 18 101/67 (78) 95 04/05/17 20:00 96 Room Air 04/05/17 20:00 98.0 71 18 118/65 (82) 96 I/O 04/05/17 04/05/17 04/05/17 04/06/17 04/06/17 04/06/17 07:00 15:00 23:00 07:00 15:00 23:00 Intake Total 480 ml 480 ml 240 ml 780 ml Output Total 0 ml 50 ml 1500 ml 0 ml Balance 480 ml 480 ml 190 ml -1500 ml 780 ml Intake Oral 480 ml 480 ml 240 ml 780 ml Output Urine Total 0 ml 50 ml 0 ml Hemodialysis 1500 ml # Voids 0 0 # Bowel Movements 0 1 0 1 Result Diagram: 04/02/17 0503 04/06/17 0615 Objective Remarks GENERAL: Looking a little stronger today SKIN: Warm and dry. HEAD: Normocephalic. EYES: No scleral icterus. No injection or drainage. NECK: Supple, trachea midline. No JVD or lymphadenopathy. CARDIOVASCULAR: Regular rate and rhythm without murmurs, gallops, or rubs. RESPIRATORY: Breath sounds equal bilaterally. No accessory muscle use. GASTROINTESTINAL: Abdomen soft, non-tender, nondistended. MUSCULOSKELETAL: No cyanosis, or edema. BACK: Nontender without obvious deformity. No CVA tenderness. EXTREMITIES: left forearm has returned to normal Procedures 04/01/17 cardiac catheterization A/P Problem List: (1) Recurrent falls ICD Code: R29.6 - Repeated falls (2) ESRD (end stage renal disease) on dialysis ICD Code: N18.6 - End stage renal disease; Z99.2 - Dependence on renal dialysis (3) Lower extremity edema ICD Code: R60.0 - Localized edema (4) HTN (hypertension) ICD Code: I10 - HTN (hypertension) Status: Acute Assessment and Plan Chronic Falls, Cervical Stenosis Surgery was recently held due to cardiac issues, now s/p heart cath on 04/01/17 He will need his aortic valve replaced prior to neurosurgical intervention, and he needs 10 teeth pulled before the aortic valve replacement C. Diff Solid stools currently Continue Flagyl, stop date 04/12/17 End Stage Renal Disease Dialysis on /Wed per nephrology Patient admitted for fluid overload. Aortic Valve Stenosis Severe according to ECHO Needs TAVR, but needs teeth pulled prior to that surgery Poor Dentition Needs teeth pulled prior to TAVR. Oromaxofacial refused our consult Will attempt to secure a solid plan upon discharge. Left Arm Swelling Most likely back pressure edema from tightly taped wrist shunt. Tape removed, will monitor Renal Cystic Mass Multiple bilateral renal cysts Outpatient follow up recommended Anemia Of chronic disease, continue Epogen per nephrology Thrombocytopenia No active bleeding, follow lab trends Hypertension Continue coreg and hydralazine DVT Prophylaxis Heparin Anupam Gupta MD Apr 06, 2017 18:47
[2017-04-07] VITALS (16 sets, daily range): BP systolic 116–129; BP diastolic 69–77; PULSE 62–83; RESP 18; TEMP 98–98.3; O2SAT 96–98
[2017-04-07] MEDS: metroNIDAZOLE 500 MG TAB PO SCH ×2 (05:38→13:15)
[2017-04-07] MEDS: hydrALAZINE HCL 10 MG TAB PO SCH ×2 (05:38→13:15)
[2017-04-07] MEDS: DOCUSATE SODIUM 50 MG/SENNA 8.6 MG TAB PO SCH (09:00)
[2017-04-07] MEDS: SODIUM CHLORIDE 0.9% FLUSH 10 ML FLUSH IV FLUSH SCH (09:47)
[2017-04-07] MEDS: ALLOPURINOL 100 MG TAB PO SCH (09:49)
[2017-04-07] MEDS: CINACALCET HYDROCHLORIDE 30 MG TAB PO SCH (09:49)
[2017-04-07] MEDS: CARVEDILOL 12.5 MG TAB PO SCH (09:49)
[2017-04-07] MEDS: ASPIRIN 81 MG CHEW TAB CHEW SCH (09:49)
[2017-04-07] MEDS: LACTOBACILLUS ACIDOPHILUS TAB PO SCH ×2 (09:49→13:15)
--- NOTE | 2017-04-07 13:16 | HHI.NPPN ---
Subjective General Problems: Anemia Renal Failure: Chronic, End Stage Renal Disease Interval History Discharge delayed due to attempting to find dental provider. Dialyzed yesterday. He has no complaints today. (Beena Hancock) Review of Systems General Constitutional: Fatigue (Beena Hancock) Cardiovascular Cardiac: Edema, SNOW (Beena Hancock) Objective Data Data 04/07/17 04/08/17 19:00 07:00 Output Total 1500 ml Balance -1500 ml Hemodialysis 1500 ml Vital Signs Date Time Temp Pulse Resp B/P (MAP) Pulse Ox O2 Delivery O2 Flow Rate FiO2 04/07/17 12:29 98.0 66 18 129/71 (90) 97 04/07/17 12:00 64 04/07/17 11:00 72 04/07/17 10:00 70 04/07/17 09:23 98.3 78 18 123/69 (87) 96 04/07/17 09:23 96 Room Air 04/07/17 09:00 74 04/07/17 08:00 70 04/07/17 07:00 83 04/07/17 05:00 70 04/07/17 05:00 98.1 72 18 129/77 (94) 97 04/07/17 04:00 69 04/07/17 03:04 82 04/07/17 02:00 72 04/07/17 01:00 66 04/07/17 00:00 98.3 66 18 116/69 (85) 98 04/07/17 00:00 66 04/06/17 23:00 82 04/06/17 22:00 72 04/06/17 21:00 74 04/06/17 20:00 98.3 66 18 116/62 (80) 96 04/06/17 20:00 83 04/06/17 20:00 96 Room Air 04/06/17 19:00 76 04/06/17 18:01 77 04/06/17 17:01 84 04/06/17 16:00 72 04/06/17 15:15 98.1 71 18 128/64 (85) 98 04/06/17 15:00 67 04/06/17 14:00 68 (Beena Hancock) -: 04/06/17 0615 Physical Exam General Appearance: Well Developed, No Acute Distress, Comfortable, Malnourished (Beena Hancock B. CUPOLA REPAIRER) Eyes Eye Exam: Pupils Equal (Beena Hancock B. CUPOLA REPAIRER) Throat Throat Exam: Oral Mucosa [place] & Moist (Beena Hancock B. CUPOLA REPAIRER) Neck Neck Exam: Neck Supple (Beena Hancock B. CUPOLA REPAIRER) Pulmonary Resp Exam: Breath Sounds Equal, No Distress, Rhonchi, Decreased Bases (Beena Hancock B. CUPOLA REPAIRER) Cardiology CV Exam: Regular, Normal Sinus Rhythm, Murmur (Beena Hancock B. CUPOLA REPAIRER) Gastrointestinal/Abdomen GI Exam: Soft, Non-Tender, Bowel Sounds Present (Beena Hancock B. CUPOLA REPAIRER) Musculoskeletal MS Exam: Joints Intact, Unable to Ambulate (Beena Hancock B. CUPOLA REPAIRER) Integumentary Skin Exam: Warm, Dry, Intact (Beena Hancock B. CUPOLA REPAIRER) Extremeties Extremities Exam: No Edema, Pedal Pulses Palpable (Beena Hancock B. CUPOLA REPAIRER) Neurologic Neuro Exam: Alert, Awake, Oriented, Speech Clear, Moving All Extremities (Beena Hancock B. CUPOLA REPAIRER) Psychiatric Psych Exam: Appropriate Responses (Beena Hancock CUPOLA REPAIRER) Assessment/Plan Discussed Condition With: Patient Assessment Summary: Anemia of CKD, Fluid/Volume Overload, Hypertension, End Stage Renal Disease Problem List: (1) CKD (chronic kidney disease) stage V requiring chronic dialysis ICD Codes: N18.6 - CKD (chronic kidney disease) stage V requiring chronic dialysis; Z99.2 - Dependence on renal dialysis Status: Chronic Plan: Continue HD TTS, due tomorrow Intermittently monitor renal profile. High protein diet ordered. AVF left arm functions well Avoid IVF (2) Aortic valvar stenosis ICD Codes: I35.0 - Nonrheumatic aortic (valve) stenosis Plan: No intervention planned at this time. Needs dental work prior to surgery. (3) Hypertension ICD Codes: I10 - Hypertension Status: Chronic Plan: Blood pressure is acceptable, continue ordered medications. (4) Anemia ICD Codes: D64.9 - Anemia Status: Acute Plan: Epogen ordered with dialysis (5) Diabetes mellitus ICD Codes: E11.9 - Diabetes mellitus Status: Chronic Plan: His blood sugar has been stable. Continue to monitor, insulin if needed. (6) Recurrent falls ICD Codes: R29.6 - Repeated falls Plan: May need PT/OT and SNF at discharge (7) Lower extremity edema ICD Codes: R60.0 - Localized edema Plan: Improved Follow fluid status, adjust UF as tolerated. Plan (Beena Hancock) Plan patient was seen and examined. Agree with above assessment and plan. (Haider Winters MD) Problem Qualifiers (1) Aortic valvar stenosis: Qualified Codes: I35.0 - Nonrheumatic aortic (valve) stenosis Beena Hancock Apr 07, 2017 13:16 Haider Winters MD Apr 07, 2017 18:01
--- NOTE | 2017-04-07 18:23 | HHI.DS ---
Discharge Summary Admission Date Mar 31, 2017 at 11:53 am Discharge Date: Apr 07, 2017 Admitting Diagnosis (1) Recurrent falls ICD Code: R29.6 - Repeated falls (2) ESRD (end stage renal disease) on dialysis ICD Code: N18.6 - End stage renal disease; Z99.2 - Dependence on renal dialysis (3) Lower extremity edema ICD Code: R60.0 - Localized edema (4) HTN (hypertension) ICD Code: I10 - HTN (hypertension) Status: Acute Procedures 04/01/17 cardiac catheterization Brief History - From Admission This is a 76-year-old male with a PMH of HTN, Diet Controlled DM, Hyperlipidemia and ESRD on HD T//Wed who presented to the ER secondary to lower extremity edema, weakness and recurrent falls x4-5 days. Per pt he's had progressive lower extremity swelling, states swelling is making him weak and legs "give out". Has had multiple falls however no injuries as Son has been able to catch him. Denies LOC or head trauma. Underwent dialysis today w/ no complications. Denies fever, chills, chest pain or sick contacts. On arrival, BP 190/84, HR 86, O2 sat 97% on RA, Afebrile. CBC essentially at baseline. Creatinine was 6.10, produces 7.11 on 12/22/14. BNP 1190. Troponin 0.04. INR 1.3. CXR with patchy bilateral lung infiltrates and possible left effusion. LE Doppler negative for DVT. S/p Lasix in ER. CBC/BMP: 04/06/17 0615 Significant Findings Laboratory Tests Test 04/05/17 11:40 04/06/17 06:15 Stool C. difficile Toxin (PCR) POSITIVE (NEGATIVE) Blood Urea Nitrogen 58 MG/DL (7-18) Creatinine 9.99 MG/DL (0.60-1.30) Albumin 2.4 GM/DL (3.4-5.0) Phosphorus Level 6.2 MG/DL (2.5-4.9) Estimat Glomerular Filtration Rate 5 ML/MIN (>89) PE at Discharge GENERAL: Looking a little stronger today SKIN: Warm and dry. HEAD: Normocephalic. EYES: No scleral icterus. No injection or drainage. NECK: Supple, trachea midline. No JVD or lymphadenopathy. CARDIOVASCULAR: Regular rate and rhythm without murmurs, gallops, or rubs. RESPIRATORY: Breath sounds equal bilaterally. No accessory muscle use. GASTROINTESTINAL: Abdomen soft, non-tender, nondistended. MUSCULOSKELETAL: No cyanosis, or edema. BACK: Nontender without obvious deformity. No CVA tenderness. EXTREMITIES: left forearm has returned to normal Hospital Course 76M admitted for recurrent falls, found to have cervical stenosis. Neurosurgery requested cardiac clearance when loud murmur was found. Cardiac work up revealed vessel disease and patient underwent stent placements. The ECHO revealed severe aortic valve stenosis, which will require TAVR repair. He is unable to repair his aortic valve until he has his broken teeth removed. We were unable to arrange inpatient service for pulling of teeth, so he is discharged to rehab facility for outpatient treatment, after which he is recommended to return and undergo TAVR so that he can qualify to have his cervical stenosis repaired in order to maintain basic walking ability. Pt Condition on Discharge: Stable Discharge Disposition: Discharge to SNF Discharge Time: <= 30 minutes Discharge Instructions DIET: Follow Instructions for: Heart Healthy Diet, Renal Failure Diet, Low Sodium Diet Fluid Restrictions: 2 liters Activities you can perform: See Additionl Instruction Other Activity Instructions: per PT recommendations Anupam Gupta MD Apr 07, 2017 6:23 pm
--- NOTE | 2017-04-08 09:07 | RSPPFT ---
DATE OF PROCEDURE: 04/03/17 COMMENTS: The forced vital capacity is markedly reduced. The FEV1 and FEF 25-75 are both markedly reduced. The FEV1/FVC ratio is normal. IMPRESSION: This is compatible with severe restrictive lung disease with a significant large and small airways obstructive component.
== END 2017-04-07 15:00 | disposition short-term general hospital (02) | DRG 286 ==
LOC: NEPC 17:21 → NEDA 22:40 → NEPGCP 03-26 00:18 → OBSVTOIN 03-31 11:53 → N05B 03-31 12:38 → HCIS 04-01 14:46
PROVIDERS: ADMIT Family Medicine; ATTEND Family Medicine
PROC: 5A1D70Z Performance of Urinary Filtration, Intermittent, Less than 6 Hours Per Day (ICD-10-PCS; 2017-03-27)
PROC: 5A1D70Z Performance of Urinary Filtration, Intermittent, Less than 6 Hours Per Day (ICD-10-PCS; 2017-03-30)
PROC: B2111ZZ Fluoroscopy of Multiple Coronary Arteries using Low Osmolar Contrast (ICD-10-PCS; 2017-04-01)
PROC: 4A023N6 Measurement of Cardiac Sampling and Pressure, Right Heart, Percutaneous Approach (ICD-10-PCS; principal; 2017-04-01 14:30)
PROC: 5A1D70Z Performance of Urinary Filtration, Intermittent, Less than 6 Hours Per Day (ICD-10-PCS; 2017-04-02)
PROC: 5A1D70Z Performance of Urinary Filtration, Intermittent, Less than 6 Hours Per Day (ICD-10-PCS; 2017-04-03)
PROC: 5A1D70Z Performance of Urinary Filtration, Intermittent, Less than 6 Hours Per Day (ICD-10-PCS; 2017-04-06)
DX: I13.2 Hypertensive heart and chronic kidney disease with heart failure and with stage 5 chronic kidney disease, or end stage renal disease (principal); N18.6 End stage renal disease; L89.159 Pressure ulcer of sacral region, unspecified stage; A04.72 Enterocolitis due to Clostridium difficile, not specified as recurrent; D69.6 Thrombocytopenia, unspecified; Q61.3 Polycystic kidney, unspecified; E11.22 Type 2 diabetes mellitus with diabetic chronic kidney disease; R29.6 Repeated falls; I70.0 Atherosclerosis of aorta; D63.1 Anemia in chronic kidney disease; D75.89 Other specified diseases of blood and blood-forming organs; N28.89 Other specified disorders of kidney and ureter; D63.8 Anemia in other chronic diseases classified elsewhere; I25.10 Atherosclerotic heart disease of native coronary artery without angina pectoris; E78.00 Pure hypercholesterolemia, unspecified; E87.5 Hyperkalemia; I50.9 Heart failure, unspecified; E78.5 Hyperlipidemia, unspecified; I08.0 Rheumatic disorders of both mitral and aortic valves; I70.8 Atherosclerosis of other arteries; I27.20 Pulmonary hypertension, unspecified; M10.9 Gout, unspecified; S02.5XXA Fracture of tooth (traumatic), initial encounter for closed fracture; M48.04 Spinal stenosis, thoracic region; M48.02 Spinal stenosis, cervical region; M47.814 Spondylosis without myelopathy or radiculopathy, thoracic region; M48.061 Spinal stenosis, lumbar region without neurogenic claudication; M19.90 Unspecified osteoarthritis, unspecified site; M41.9 Scoliosis, unspecified; F40.240 Claustrophobia; Z85.828 Personal history of other malignant neoplasm of skin; Z91.15 Patient's noncompliance with renal dialysis; Z99.2 Dependence on renal dialysis
CPT/HCPCS: 71010; 72125; 72131; 72141; 72146; 72148; 74174; 74176; 76775; 80048; 80053; 80069; 81001; 82550; 82607; 82746; 82810; 82948; 83735; 83880; 84100; 84443; 84484; 85025; 85610; 85730; 87493; 87506; 90935; 93005; 93306; 93456; 93970; 94010; 94150; 96372; 96374; 96375; 99152; 99153; C1769; C1893; G0257; G0378; G8987-GP; G8988-GP; J1644; J1940; J2060; J2250; J2405; J3010; P9047; Q4081; Q9967

== ENCOUNTER 2017-04-20 11:46 | Inpatient (IN) | payer OTHER, MEDICARE ==
[2017-04-20] VITALS (12 sets, daily range): BP systolic 71–145; BP diastolic 38–88; PULSE 71–88; RESP 16–18; TEMP 97–98.7; O2SAT 84–100
[~2017-04-20] VITALS: Ht 177.8 cm; Wt 79.6 kg
[~2017-04-20 11:46] MED LIST changes: -ALLO100 PO; +ALLO100T PO; -CALC667T PO; -CARV12.5 PO; +CARV25TA PO; -CHOL1CAP6 PO; +CINA30 PO; +HYDR-3798 PO; +LACT PO; -LISI10 PO; +METR-1 PO; +NAPR250T4 PO; -SENS60TA PO; -SIMV40 PO; -TYLE3 PO
[2017-04-20] MEDS ORDERED: SODIUM CHLOR 0.9% 1000 ML INJ 1,000 ML IV ONE (12:15)
[2017-04-20 12:49] LABS: AUTOMATED NEUTROPHIL # 11.4 TH/MM3 (1.8-7.7); BASOPHIL # 0.1 TH/MM3 (0-0.2); BASOPHIL % 0.6 % (0.0-2.0); EOSINOPHIL # 0.2 TH/MM3 (0-0.4); EOSINOPHIL % 1.3 % (0.0-4.0); HEMATOCRIT 27.3 % (39.0-51.0); HEMOGLOBIN 8.9 GM/DL (13.0-17.0); LYMPH % 11.2 % (9.0-44.0); LYMPHOCYTE # 1.6 TH/MM3 (1.0-4.8); MEAN CELL VOLUME 104.6 FL (80.0-100.0); MEAN CORPUSCULAR HEMOGLOBIN 34.1 PG (27.0-34.0); MEAN CORPUSCULAR HGB CONC 32.6 % (32.0-36.0); MEAN PLATELET VOLUME 10.3 FL (7.0-11.0); MONO % 5.3 % (0.0-8.0); MONOCYTE # 0.7 TH/MM3 (0-0.9); NEUT % 81.6 % (16.0-70.0); PLATELET COUNT 254 TH/MM3 (150-450); RED BLOOD COUNT 2.61 MIL/MM3 (4.50-5.90); RED CELL DISTRIBUTION WIDTH 15.9 % (11.6-17.2)
[2017-04-20 13:03] LABS: INTERNATIONAL NORMALIZED RATIO 1.4 RATIO; PROTHROMBIN TIME - PATIENT 14.3 SEC (9.8-11.6)
--- NOTE | 2017-04-20 13:14 | PD ---
HPI Chief Complaint: Syncope/Near-Syncope Time Seen by Provider: 12:07 Travel History International Travel<30 days: No Contact w/Intl Traveler<30days: No Traveled to known affect area: No History of Present Illness HPI 76-year-old male presents to the ED for evaluation of possible syncope. Patient has a history of ESRD on gout recently admitted for fluid overload. Patient also has found to have C. difficile at that time. Patient was not discharged has been doing well. Patient went to get his dialysis today in had about 3 mL taken from him as well as returned to him when he had a syncopal episode at time. Ambulance will scall in the brought him here for evaluation. Per Facility and ambulance report his blood pressure has been low in the 70s systolic. Patient himself feels weak but otherwise denies any symptoms. Ambulance report that they noticed the patient had a stool that was black mold over taking him into the stretcher. Patient denies any blood thinner use. Per patient he denies any injuries or falls. He denies any chest pain or shortness of breath. He denies any swelling. He has no allergies to medication. Other medical issues at this time. Patient gets dialysis Tuesdays and saturdays. Denies hitting his head. No history of bleeding disorders. PFSH Past Medical History Arthritis: Yes Asthma: No Blood Disorders: No Heart Rhythm Problems: No Cancer: Yes (skin cancer on left upper arm wa sremoved 2mo ago 01/19) Cardiovascular Problems: Yes (pilonidial cyst) High Cholesterol: No (pt denies high cholestrol) Chest Pain: No Congestive Heart Failure: No COPD: No Diabetes: Yes (diet controlled) Patient Takes Glucophage: No Dialysis: Yes (t, , sat) Endocrine: Yes Gastrointestinal Disorders: No Gout: Yes Genitourinary: Yes (dialysis / pt also dribbles when urinating) Hypertension: Yes Immune Disorder: No Implanted Vascular Access Dvce: No Kidney Stones: No Musculoskeletal: Yes (pilonidial cyst and bilateral gout) Neurologic: No Psychiatric: No Reproductive: No Respiratory: Yes Renal Failure: Yes (d/t polycystic kidney disease) Sleep Apnea: No Thyroid Disease: No ?: Not Past Surgical History Abdominal Surgery: No AICD: No Arteriovenous Shunt: Yes (AV FISTULA) Cardiac Surgery: No Ear Surgery: No Endocrine Surgery: No Eye Surgery: No Genitourinary Surgery: No Gynecologic Surgery: No Insulin Pump: No Joint Replacement: No Neurologic Surgery: No Oral Surgery: No Pacemaker: No Thoracic Surgery: No Other Surgery: Yes (PILONIDIAL [id number], FISTULA FOR DIALYSIS L WRIST) Social History Alcohol Use: No Tobacco Use: No Substance Use: No Allergies-Medications (Allergen,Severity, Reaction): Coded Allergies: No Known Allergies (Verified Allergy, Unknown, 03/25/17) Reported Meds & Prescriptions Reported Meds & Active Scripts Active Hydralazine HCl 10 Mg Tablet 10 Mg PO Q8HR Reported Carvedilol 25 Mg Tab 25 Mg PO BID Allopurinol 100 Mg Tab 100 Mg PO DAILY Sensipar (Cinacalcet) 30 Mg Tab 30 Mg PO DAILY Naproxen 250 Mg Tab 250 Mg PO BID Review of Systems Except as stated in HPI: all other systems reviewed are Neg Physical Exam Narrative GENERAL: SKIN: Warm and dry. HEAD: Atraumatic. Normocephalic. EYES: Pupils equal and round 4 mm reactive to light and accommodation. No scleral icterus. No injection or drainage. ENT: No nasal bleeding or discharge. Mucous membranes pink and moist. Tongue his midline. No uvula deviation. NECK: Trachea midline. No JVD. CARDIOVASCULAR: Regular rate and rhythm. No murmurs, S3, S4. RESPIRATORY: No accessory muscle use. Clear to auscultation. Breath sounds equal bilaterally. GASTROINTESTINAL: Abdomen soft, non-tender, nondistended. Hepatic and splenic margins not palpable. MUSCULOSKELETAL: Extremities without clubbing, cyanosis, or edema. No obvious deformities. Full range of motion of the lower extremities bilaterally. 2+ pulses bilaterally. Patient has a palpable thrill on his fistula on the left forearm. NEUROLOGICAL: Awake and alert. No obvious cranial nerve deficits. Motor grossly within normal limits. Five out of 5 muscle strength in the arms and legs. Normal speech. PSYCHIATRIC: Appropriate mood and affect; insight and judgment normal. Data Data Last Documented VS Vital Signs Date Time Temp Pulse Resp B/P (MAP) Pulse Ox O2 Delivery O2 Flow Rate FiO2 04/20/17 14:46 78 18 141/78 (99) 100 Nasal Cannula 2.00 04/20/17 14:40 97.7 Orders Orders Complete Blood Count With Diff (04/20/17 12:08) Comprehensive Metabolic Panel (04/20/17 12:08) Ckmb (Isoenzyme) Profile (04/20/17 12:08) Troponin I (04/20/17 12:08) B-Type Natriuretic Peptide (04/20/17 12:08) Prothrombin Time / Inr (Pt) (04/20/17 12:08) Act Partial Throm Time (Ptt) (04/20/17 12:08) Blood Culture (04/20/17 12:08) Lipase (04/20/17 12:08) Urinalysis - C+S If Indicated (04/20/17 12:08) Potassium, Serum (K) (04/20/17 12:08) Thyroid Stimulating Hormone (04/20/17 12:08) Chest, Single Ap (04/20/17 12:08) Ct Brain W/O Iv Contrast(Rout) (04/20/17 12:08) Iv Access Insert/Monitor (04/20/17 12:08) Ecg Monitoring (04/20/17 12:08) Oximetry (04/20/17 12:08) Type And Screen (04/20/17 12:08) Red Blood Cells (Rbc) (04/20/17 12:08) Lactic Acid Sepsis Protocol (04/20/17 12:08) Sodium Chlor 0.9% 1000 Ml Inj (Ns 1000 M (04/20/17 12:15) C Diff Toxin Pcr (04/20/17 13:10) Pantoprazole Inj (Protonix Inj) (04/20/17 13:30) Pantoprazole Inj (Protonix Inj) (04/20/17 15:00) Pantoprazole Inj (Protonix Inj) (04/20/17 15:00) Red Blood Cells (Rbc) (04/20/17 12:28) Admit To Inpatient (04/20/17 ) Code Status (04/20/17 15:03) Vital Signs (Adult) Q4H (04/20/17 15:03) Activity Oob Ad [place] (04/20/17 15:03) Bedside Glucose MONICA.CSUGAR (04/20/17 15:03) [place] [employer] / Telemetry .CONTINUOUS (04/20/17 15:03) Intake + Output MONICA.QSHIFT (04/20/17 15:03) Notify Dr: Other (04/20/17 15:03) Diet Heart Healthy (04/20/17 Dinner) Sodium Chlor 0.9% 1000 Ml Inj (Ns 1000 M (04/20/17 15:03) Sodium Chloride 0.9% Flush (Ns Flush) (04/20/17 15:15) Sodium Chloride 0.9% Flush (Ns Flush) (04/20/17 21:00) Acetaminophen (Tylenol) (04/20/17 15:15) Ondansetron Inj (Zofran Inj) (04/20/17 15:15) Comprehensive Metabolic Panel (04/21/17 06:00) Complete Blood Count With Diff (04/21/17 06:00) Creatine Kinase (Cpk) (04/20/17 15:03) Creatine Kinase (Cpk) (04/20/17 21:03) Troponin I (04/20/17 15:03) Troponin I (04/20/17 21:03) Resp Oxygen Bertin C Titrat 1-4 L (04/20/17 ) Pt Request For Service (04/20/17 15:03) Ot Request For Service (04/20/17 15:03) Case Management Consult (04/20/17 15:03) Scd Bilateral/Knee High MONICA.BID (04/20/17 15:03) Naloxone Inj (Narcan Inj) (04/20/17 15:15) Sennosides (Senokot) (04/20/17 15:15) Bisacodyl Supp (Dulcolax Supp) (04/20/17 15:15) Lactulose Liq (Lactulose Liq) (04/20/17 15:15) Inpatient Certification (04/20/17 ) Admit Order (Ed Use Only) (04/20/17 15:08) Consult Nephrology (04/20/17 ) Labs Laboratory Tests Test 04/20/17 12:28 04/20/17 14:40 White Blood Count 14.0 TH/MM3 Red Blood Count 2.61 MIL/MM3 Hemoglobin 8.9 GM/DL Hematocrit 27.3 % Mean Corpuscular Volume 104.6 FL Mean Corpuscular Hemoglobin 34.1 PG Mean Corpuscular Hemoglobin Concent 32.6 % Red Cell Distribution Width 15.9 % Platelet Count 254 TH/MM3 Mean Platelet Volume 10.3 FL Neutrophils (%) (Auto) 81.6 % Lymphocytes (%) (Auto) 11.2 % Monocytes (%) (Auto) 5.3 % Eosinophils (%) (Auto) 1.3 % Basophils (%) (Auto) 0.6 % Neutrophils # (Auto) 11.4 TH/MM3 Lymphocytes # (Auto) 1.6 TH/MM3 Monocytes # (Auto) 0.7 TH/MM3 Eosinophils # (Auto) 0.2 TH/MM3 Basophils # (Auto) 0.1 TH/MM3 CBC Comment DIFF FINAL Differential Comment Prothrombin Time 14.3 SEC Prothromb Time International Ratio 1.4 RATIO Activated Partial Thromboplast Time 150.8 SEC Blood Urea Nitrogen 93 MG/DL Creatinine 7.53 MG/DL Random Glucose 122 MG/DL Total Protein 6.2 GM/DL Albumin 2.9 GM/DL Calcium Level 10.0 MG/DL Alkaline Phosphatase 64 U/L Aspartate Amino Transf (AST/SGOT) 18 U/L Alanine Aminotransferase (ALT/SGPT) 15 U/L Total Bilirubin 0.8 MG/DL Sodium Level 138 MEQ/L Potassium Level 5.5 MEQ/L Chloride Level 101 MEQ/L Carbon Dioxide Level 23.1 MEQ/L Anion Gap 14 MEQ/L Estimat Glomerular Filtration Rate 7 ML/MIN Total Creatine Kinase 23 U/L Troponin I 0.10 NG/ML B-Type Natriuretic Peptide 256 PG/ML Lipase 238 U/L Thyroid Stimulating Hormone 3rd Gen 1.360 uIU/ML Lactic Acid Level 1.8 mmol/L MDM Medical Decision Making Medical Screen Exam Complete: Yes Emergency Medical Condition: Yes Medical Record Reviewed: Yes Interpretation(s) CBC & BMP Diagram 04/20/17 12:28 BMP Diagram 04/20/17 12:28 Total Protein 6.2 L, Albumin 2.9 L, Calcium Level 10.0, Alkaline Phosphatase 64 , Aspartate Amino Transf (AST/SGOT) 18, Alanine Aminotransferase (ALT/SGPT) 15, Total Bilirubin 0.[address] 04/20/17 1208 Signed Impressions: Service Date/Time: Thursday, April 20, 2017 13:56 - CONCLUSION: Normal examination for a patient of this age. Farhan Kasper MD Chest X-Ray 04/20/17 1208 Signed Impressions: Service Date/Time: Thursday, April 20, 2017 13:05 - CONCLUSION: 1. Mild bibasilar opacity likely representing pleural effusions with associated volume loss and/or consolidation. 2. Severe atherosclerotic calcification of the aorta. Landon Marrero MD coags with PTT elevated troponin and CKMB negative EKG shows sinus rhythm with no sign of acute ischemia or arrythmia read by me and attending Differential Diagnosis Hypotension versus sepsis versus dehydration versus GI bleed versus ESRD versus electrolyte abnormality versus anemia Narrative Course 76-year-old male that presents to the ED for evaluation of hypotension in syncope. patient was properly examined by me and attending Dr Bernal. 2 IGs were placed by my attending. I did a Hemoccult on the patient any worse positive for blood. Appears to be black. My attending recommends emergency blood. This was not given to the patient as well as the fluid some brought back his blood pressure to 140s. This was discussed with my attending who agrees with plan. Protonix were started. Patient does have a history of C. difficile per medical records. Patient appears to be possibly septic at this time. Also possibly dehydrated. Labs and imaging were essentially unremarkable at this time other time for significant kidney disease, elevated white blood cell count in positive Hemoccult as well as anemia. Patient does improve after 2 units of blood as well as fluids. Blood pressure now it is in the 140s systolic. Because of this new onset hypotension at the recommend admission for further evaluation of this. Patient also has GI bleed that could require colonoscopy. Case discussed with Dr Bernal who agrees patient can be admitted to Hepas service. patient admitted to Dr Pineda who agrees to admission. HemaPrompt Point of Care Internal Pos. & Neg. Controls: Passed Fecal Specimen Occult Blood: Positive Sepsis Criteria SIRS Criteria (2 or more): WBC > 76508, < 4000 or > 10% bands Diagnosis Primary Impression: Hypotension Qualified Codes: I95.9 - Hypotension, unspecified Additional Impressions: Sepsis Qualified Codes: A41.9 - Sepsis, unspecified organism ESRD (end stage renal disease) on dialysis GI bleed Qualified Codes: K92.2 - Gastrointestinal hemorrhage, unspecified C. difficile diarrhea Admitting Information Admitting Physician Requests: Admit Elie Herring Apr 20, 2017 13:14
[2017-04-20 13:25] LABS: CHLORIDE 101 MEQ/L (98-107); SODIUM (NA) 138 MEQ/L (136-145)
[2017-04-20] MEDS ORDERED: PANTOPRAZOLE SODIUM 40 MG VIAL IV PUSH ONE (13:30)
--- NOTE | 2017-04-20 13:47 | RADRPT ---
EXAM DATE/TIME: 04/20/2017 13:05 [facility] COMPARISON: CTA TRANS AORTIC VALVE REPLACEMENT, April 02, 2017, 15:37. CHEST SINGLE AP, March 25, 2017, 19 :18. INDICATIONS : Syncope after dialysis. MEDICAL HISTORY : Diabetes mellitus type II. Renal insufficiency. SURGICAL HISTORY : None. ENCOUNTER: Initial ACUITY: 1 day PAIN SCORE: 0/10 LOCATION: Bilateral chest FINDINGS: Portable AP view of the chest demonstrates normal size cardiac silhouette with severely calcified and tortuous thoracic aorta. Lungs are underinflated with mild bibasilar opacity. No pneumothorax is vis ualized. Bones demonstrate no acute finding. CONCLUSION: 1. Mild bibasilar opacity likely representing pleural effusions with associated volume loss and/or co nsolidation. 2. Severe atherosclerotic calcification of the aorta. Landon Marrero MD on April 20, 2017 at 13:36 Board Certified Radiologist. This report was verified electronically.
--- NOTE | 2017-04-20 14:05 | RADRPT ---
EXAM DATE/TIME: 04/20/2017 13:56 [facility] COMPARISON: No previous studies available for comparison. INDICATIONS : Syncope. RADIATION DOSE: 37.35 CTDIvol (mGy) MEDICAL HISTORY : Hypertension. Diabetes, renal disease SURGICAL HISTORY : None. ENCOUNTER: Initial ACUITY: 1 day PAIN SCALE: 0/10 LOCATION: cranial TECHNIQUE: Multiple contiguous axial images were obtained of the head. Using automated exposure control and adj ustment of the mA and/or kV according to patient size, radiation dose was kept as low as reasonably a chievable to obtain optimal diagnostic quality images. DICOM format image data is available electro nically for review and comparison. FINDINGS: CEREBRUM: The ventricles are normal for age. No evidence of midline shift, mass lesion, hemorrhage or acute in farction. No extra-axial fluid collections are seen. POSTERIOR FOSSA: The cerebellum and brainstem are intact. The 4th ventricle is midline. The cerebellopontine angle i s unremarkable. EXTRACRANIAL: The visualized portion of the orbits is intact. Vascular calcifications of the internal carotid arter ies and siphons. SKULL: The calvaria is intact. No evidence of skull fracture. CONCLUSION: Normal examination for a patient of this age. Frahan Kasper MD on April 20, 2017 at 14:01 Board Certified Radiologist. This report was verified electronically.
[2017-04-20 14:13] LABS: ALBUMIN 2.9 GM/DL (3.4-5.0); ALKALINE PHOSPHATASE 64 U/L (45-117); AST (GOT) 18 U/L (15-37); BLOOD UREA NITROGEN 93 MG/DL (7-18); CREATININE 7.53 MG/DL (0.60-1.30); GLOMERULAR FILTRATION RATE 7 ML/MIN (>89); TOTAL BILIRUBIN ADULT 0.8 MG/DL (0.2-1.0)
[2017-04-20] MEDS: PANTOPRAZOLE 80 MG/100 ML NS IV SCH ×2 (14:14)
[2017-04-20 14:27] LABS: ALT (GPT) 15 U/L (12-78); BICARBONATE 23.1 MEQ/L (21.0-32.0); GLUCOSE,RANDOM 122 MG/DL (74-106)
[2017-04-20 14:36] LABS: TOTAL PROTEIN 6.2 GM/DL (6.4-8.2)
[2017-04-20] MEDS ORDERED: PANTOPRAZOLE INJ 80 MG in SODIUM CHLORIDE 0.9% INJ 100 ML IV SCH (15:00)
[2017-04-20] MEDS ORDERED: PANTOPRAZOLE 80 MG/35 ML NS - BOLUS IV ONE ×2 (15:00)
[2017-04-20] MEDS ORDERED: LACTULOSE SYRUP 20 GM/30 ML CUP PO PRN (15:15)
[2017-04-20] MEDS ORDERED: SENNOSIDES 8.6 MG TAB PO PRN (15:15)
[2017-04-20] MEDS ORDERED: BISACODYL 10 MG SUPP RECTAL PRN (15:15)
[2017-04-20] MEDS ORDERED: ONDANSETRON HCL 4 MG/2 ML VIAL IVP PRN (15:15)
[2017-04-20] MEDS ORDERED: SODIUM CHLORIDE 0.9% FLUSH 10 ML FLUSH IV FLUSH PRN ×2 (15:15→19:30)
[2017-04-20] MEDS ORDERED: NALOXONE HCL 0.4 MG/ML AMP IV PUSH PRN (15:15)
[2017-04-20] MEDS ORDERED: ACETAMINOPHEN 325 MG TAB PO PRN (15:15)
--- NOTE | 2017-04-20 15:17 | HHI.HP ---
HPI [facility] Primary Care Physician [facility] Admission Diagnosis acute syncope, hypotension, sepsis, GI bleed, ESRD on dyalisis Diagnoses: Chief Complaint: Sent by Hemodialysis Center due to Hypotension while on Hemodialysis. Travel History International Travel<30 Days: No Contact w/Intl Traveler <30 Da: No Traveled to Known Affected Are: No History of Present Illness This is a pleasant 76 y/o male with Recurrent falls, ESRD on Hemodialysis, Lower extremity edema, Hypertension, who is re admitted today after been discharged on April 07 as we know he has also DM II, Hyperlipidemia, Hemodialysis on , and Wed, on this opportunity was brought in for evaluation of probable syncopal episode, he had recent admission due to fluid overload and found also C Diff positive, today while on hemodialysis he had syncopal episode found with Hypotension, obtained 3 Liters of fluid, his systolic blood pressure found in seventies, was reported a Melenic stool by EMS, he denies any injuries or falls. He denies any chest pain or shortness of breath. He denies any swelling. He has no allergies to medication. Hemoccult was positive in ER, he had recent admission CXR on that moment showed patchy bilateral lung infiltrates and possible left effusion , was found cervical stenosis Neurosurgery requested Cardiac Clearance when loud murmur was found, Cardiac work up revealed vessel disease and patient underwent stent placements.has Severe Aortic Stenosis will require TAVR, he is unable to repair his aortic valve until he has his broken teeth removed, was discharged to SNF, he had Cardiac Cath 04/01/17. Seen in Emergency room no signs of infection. Review of Systems Constitutional: DENIES: Fever, Chills, Change in appetite Endocrine: DENIES: Heat/cold intolerance Eyes: DENIES: Blurred vision, Eye pain Except as stated in HPI: all other systems reviewed are Neg Past Family Social History Past Medical History Hypertension diet conrolled DM II Hypelipidemia ESRD on HD //Wed Past Surgical History AV Fistula Pilonidal Cyst Reported Medications Reported Meds & Active Scripts Active Hydralazine HCl 10 Mg Tablet 10 Mg PO Q8HR Reported Carvedilol 25 Mg Tab 25 Mg PO BID Allopurinol 100 Mg Tab 100 Mg PO DAILY Sensipar (Cinacalcet) 30 Mg Tab 30 Mg PO DAILY Naproxen 250 Mg Tab 250 Mg PO BID Allergies: Coded Allergies: No Known Allergies (Verified Allergy, Unknown, 03/25/17) Active Ordered Medications Current Medications Medications (Trade) Dose Ordered Sig/Jamal Route Start Time Stop Time Status Last Admin Pantoprazole Sodium 80 mg/ Sodium Chloride 100 ml @ 10 mls/hr Q10H IV 04/20/17 15:00 04/20/17 14:14 Sodium Chloride 1,000 ml @ 42 mls/hr [id number] IV 04/20/17 15:03 04/20/17 15:51 (NS Flush) 2 ml UNSCH PRN IV FLUSH 04/20/17 15:15 (NS Flush) 2 ml BID IV FLUSH 04/20/17 21:00 (Tylenol) 650 mg Q4H PRN PO 04/20/17 15:15 (Zofran Inj) 4 mg Q6H PRN IVP 04/20/17 15:15 (Narcan Inj) 0.4 mg UNSCH PRN IV PUSH 04/20/17 15:15 (Senokot) 17.2 mg Q12H PRN PO 04/20/17 15:15 (Dulcolax Supp) 10 mg DAILY PRN RECTAL 04/20/17 15:15 (Lactulose Liq) 30 ml DAILY PRN PO 04/20/17 15:15 Family History Mother with Dm II and Father with Hypertension. Social History Denies any toxic habits. Physical Exam Vital Signs Vital Signs Date Time Temp Pulse Resp B/P (MAP) Pulse Ox O2 Delivery O2 Flow Rate FiO2 04/20/17 14:46 78 18 141/78 (99) 100 Nasal Cannula 2.00 04/20/17 14:40 97.7 72 18 145/88 100 04/20/17 14:12 98.7 74 18 126/57 100 04/20/17 13:52 97.6 82 18 112/70 99 04/20/17 13:20 97.6 88 18 121/61 (81) 100 Nasal Cannula 2.00 04/20/17 13:20 97.6 80 18 121/67 100 04/20/17 12:56 75 18 100 Room Air 04/20/17 12:52 97.6 74 16 144/64 100 04/20/17 12:39 97.5 71 18 135/60 (85) 100 Nasal Cannula 2.00 04/20/17 12:39 18 100 Nasal Cannula 2.00 04/20/17 12:37 97.5 82 18 135/60 84 04/20/17 12:09 97.4 84 18 71/38 (49) 100 Nasal Cannula 2.00 Physical Exam GENERAL: No acute distress. HEENT: PERRLA, EOMI. No scleral icterus or conjunctival pallor. No lid lag or facial droop. CARDIOVASCULAR: Regular rate and rhythm. No obvious murmurs to auscultation. No chest tenderness to palpation. RESPIRATORY: No obvious rhonchi or wheezing. systolic murmur 3/6 in intensity on aortic area GASTROINTESTINAL: Abdomen soft, non-tender, nondistended. BS normal. MUSCULOSKELETAL: Extremities without clubbing, cyanosis. +2 pitting edema bilaterally, left > right. No obvious deformities. NEUROLOGICAL: Awake, alert and oriented x4. No focal neurologic deficits. Moving both upper and lower extremities spontaneously. Laboratory Laboratory Tests Test 04/20/17 12:28 04/20/17 14:40 White Blood Count 14.0 Red Blood Count 2.61 Hemoglobin 8.9 Hematocrit 27.3 Mean Corpuscular Volume 104.6 Mean Corpuscular Hemoglobin 34.1 Mean Corpuscular Hemoglobin Concent 32.6 Red Cell Distribution Width 15.9 Platelet Count 254 Mean Platelet Volume 10.3 Neutrophils (%) (Auto) 81.6 Lymphocytes (%) (Auto) 11.2 Monocytes (%) (Auto) 5.3 Eosinophils (%) (Auto) 1.3 Basophils (%) (Auto) 0.6 Neutrophils # (Auto) 11.4 Lymphocytes # (Auto) 1.6 Monocytes # (Auto) 0.7 Eosinophils # (Auto) 0.2 Basophils # (Auto) 0.1 CBC Comment DIFF FINAL Differential Comment Prothrombin Time 14.3 Prothromb Time International Ratio 1.4 Activated Partial Thromboplast Time 150.8 Blood Urea Nitrogen 93 Creatinine 7.53 Random Glucose 122 Total Protein 6.2 Albumin 2.9 Calcium Level 10.0 Alkaline Phosphatase 64 Aspartate Amino Transf (AST/SGOT) 18 Alanine Aminotransferase (ALT/SGPT) 15 Total Bilirubin 0.8 Sodium Level 138 Potassium Level 5.5 Chloride Level 101 Carbon Dioxide Level 23.1 Anion Gap 14 Estimat Glomerular Filtration Rate 7 Total Creatine Kinase 23 Troponin I 0.10 B-Type Natriuretic Peptide 256 Lipase 238 Thyroid Stimulating Hormone 3rd Gen 1.360 Date/Time Source Procedure Growth Status 04/20/17 14:40 Blood Peripheral Aerobic Blood Culture Pending Received 04/20/17 14:40 Blood Peripheral Anaerobic Blood Culture Pending Received Result Diagram: 04/20/17 1228 04/20/17 1228 Imaging Last Impressions Head CT 04/20/17 1208 Signed Impressions: Service Date/Time: Thursday, April 20, 2017 13:56 - CONCLUSION: Normal examination for a patient of this age. Farhan Kasper MD Chest X-Ray 04/20/17 1208 Signed Impressions: Service Date/Time: Thursday, April 20, 2017 13:05 - CONCLUSION: 1. Mild bibasilar opacity likely representing pleural effusions with associated volume loss and/or consolidation. 2. Severe atherosclerotic calcification of the aorta. MD Hayley Yoder VTE Risk Assessment Caprini VTE Risk Assessment: Mod/High Risk (score >= 2) VTE Pharm Contraindication: Hemorrhage Caprini Risk Assessment Model Point Value = 1 Point Value = 2 Point Value = 3 Point Value = 5 Age 41-60 Minor surgery BMI > 25 kg/m2 Swollen legs Varicose veins or History of unexplained or recurrent spontaneous Oral contraceptives or hormone replacement Sepsis (< 1 month) Serious lung disease, including pneumonia (< 1 month) Abnormal pulmonary function Acute myocardial infarction Congestive heart failure (< 1 month) History of inflammatory bowel disease Medical patient at bed rest Age 61-74 Arthroscopic surgery Major open surgery (> 45 min) Laparoscopic surgery (> 45 min) Malignancy Confined to bed (> 72 hours) Immobilizing plaster cast Central venous access Age >= 75 History of VTE Family history of VTE Factor V Leiden Prothrombin [id number] Lupus anticoagulant Anticardiolipin antibodies Elevated serum homocysteine Heparin-induced thrombocytopenia Other congenital or acquired thrombophilia Stroke (< 1 month) Elective arthroplasty Hip, pelvis, or leg fracture Acute spinal cord injury (< 1 month) Prophylaxis Regimen Total Risk Factor Score Risk Level Prophylaxis Regimen 0-1 Low Early ambulation 2 Moderate Order ONE of the following: *Sequential Compression Device (SCD) *Heparin 5000 units SQ BID 3-4 Higher Order ONE of the following medications: *Heparin 5000 units SQ TID *Enoxaparin/Lovenox 40 mg SQ daily (WT < 150 kg, CrCl > 30 mL/min) *Enoxaparin/Lovenox 30 mg SQ daily (WT < 150 kg, CrCl > 10-29 mL/min) *Enoxaparin/Lovenox 30 mg SQ BID (WT < 150 kg, CrCl > 30 mL/min) AND/OR *Sequential Compression Device (SCD) 5 or more Highest Order ONE of the following medications: *Heparin 5000 units SQ TID (Preferred with Epidurals) *Enoxaparin/Lovenox 40 mg SQ daily (WT < 150 kg, CrCl > 30 mL/min) *Enoxaparin/Lovenox 30 mg SQ daily (WT < 150 kg, CrCl > 10-29 mL/min) *Enoxaparin/Lovenox 30 mg SQ BID (WT < 150 kg, CrCl > 30 mL/min) AND *Sequential Compression Device (SCD) Assessment and Plan Assessment and Plan 1. recurrent falls by history will get PT and OT evaluation he is at rehab at this time also asked for application support manager 2. ESRD on HD: T//Wed, who had Hypotension while on hemodialysis, I do not see signs of infection at this time, has Leukocytosis, Lactic Acid 1.8 follow off antibiotics, consult Nephrology specialist. 3. Lower Extremity Edema: chronic issue 4. HTN: controlled at this time improved. 5. Anemia on chronic disease status post blood transfusion two units of PRBCs. 6. GI bleed asked for GI specialist consult. follow H and H. 7. Cervical stenosis Neurosurgery following for procedure 8. Severe Aortic Stenosis for probable TAVR awaiting for Dental work not yet performed. DVT Prophylaxis: SCDs Social work for d/c planning as needed. Code Status Full Code. Discussed Condition With Elie Herring Physician Certification 2 Midnight Certification Type: Admission for Inpatient Services Order for Inpatient Services The services are ordered in accordance with Medicare regulations or non- Medicare payer requirements, as applicable. In the case of services not specified as inpatient-only, they are appropriately provided as inpatient services in accordance with the 2-midnight benchmark. Estimated LOS (days): 3 days is the estimated time the patient will need to remain in the hospital, assuming treatment plan goals are met and no additional complications. Post-Hospital Plan: Not yet determined César Valencia MD Apr 20, 2017 3:17 pm
[2017-04-20] MEDS: SODIUM CHLOR 0.9% 1000 ML INJ 1,000 ML IV SCH (15:51)
--- NOTE | 2017-04-20 17:11 | PD.CONS ---
History of Present Illness Service Nephrology Consult Requested By Attending Reason for Consult ESRD Hypotension Primary Care Physician [facility] Diagnoses: History of Present Illness Patient is a very pleasant 76 y/o male with ESRD on hemodialysis on and Wed, who during hemodialysis he had a syncopl episode and was hypotnesive with SBP in the 70's. He has had recent admission due to fluid overload and found also C Diff positive was reported a melenic stool by EMS HGB at 8.9. Hemocult stool positive. Potassium is elevated at 5.5 at ER. (Prachi Huitron) Review of Systems Constitutional: COMPLAINS OF: Fatigue, Dizziness Respiratory: DENIES: Sputum production, Shortness of breath Cardiovascular: DENIES: Chest pain Gastrointestinal: COMPLAINS OF: Abdominal pain, Bloody stools (Prachi Huitron) Past Family Social History Allergies: Coded Allergies: No Known Allergies (Verified Allergy, Unknown, 03/25/17) Past Medical History Hypertension diet conrolled DM II Hypelipidemia ESRD on HD /Wed Past Surgical History AV Fistula Pilonidal Cyst Active Ordered Medications Current Medications Medications (Trade) Dose Ordered Sig/Jamal Route Start Time Stop Time Status Last Admin Pantoprazole Sodium 80 mg/ Sodium Chloride 100 ml @ 10 mls/hr Q10H IV 04/20/17 15:00 04/20/17 14:14 Sodium Chloride 1,000 ml @ 42 mls/hr [id number] IV 04/20/17 15:03 04/20/17 15:51 (NS Flush) 2 ml UNSCH PRN IV FLUSH 04/20/17 15:15 (NS Flush) 2 ml BID IV FLUSH 04/20/17 21:00 (Tylenol) 650 mg Q4H PRN PO 04/20/17 15:15 (Zofran Inj) 4 mg Q6H PRN IVP 04/20/17 15:15 (Narcan Inj) 0.4 mg UNSCH PRN IV PUSH 04/20/17 15:15 (Senokot) 17.2 mg Q12H PRN PO 04/20/17 15:15 (Dulcolax Supp) 10 mg DAILY PRN RECTAL 04/20/17 15:15 (Lactulose Liq) 30 ml DAILY PRN PO 04/20/17 15:15 (Zyloprim) 100 mg DAILY PO 04/21/17 09:00 (Sensipar) 30 mg DAILY PO 04/21/17 09:00 Family History Mother with Dm II and Father with Hypertension. Social History Denies tobacco or ETOH use (Prachi Huitron) Physical Exam Vital Signs Vital Signs Date Time Temp Pulse Resp B/P (MAP) Pulse Ox O2 Delivery O2 Flow Rate FiO2 04/20/17 16:20 84 18 133/63 (86) 96 Room Air 04/20/17 14:46 78 18 141/78 (99) 100 Nasal Cannula 2.00 04/20/17 14:40 97.7 72 18 145/88 100 04/20/17 14:12 98.7 74 18 126/57 100 04/20/17 13:52 97.6 82 18 112/70 99 04/20/17 13:20 97.6 88 18 121/61 (81) 100 Nasal Cannula 2.00 04/20/17 13:20 97.6 80 18 121/67 100 04/20/17 12:56 75 18 100 Room Air 04/20/17 12:52 97.6 74 16 144/64 100 04/20/17 12:39 97.5 71 18 135/60 (85) 100 Nasal Cannula 2.00 04/20/17 12:39 18 100 Nasal Cannula 2.00 04/20/17 12:37 97.5 82 18 135/60 84 04/20/17 12:09 97.4 84 18 71/38 (49) 100 Nasal Cannula 2.00 Physical Exam GENERAL: No acute distress. Alert and oriented HEENT: PERRLA, EOMI. No scleral icterus or conjunctival pallor. No lid lag or facial droop. CARDIOVASCULAR: Regular rate and rhythm. Murmurs noted to auscultation. No chest tenderness to palpation. RESPIRATORY: No obvious rhonchi or wheezing. systolic murmur 3/6 in intensity on aortic area GASTROINTESTINAL: Abdomen soft, non-tender, nondistended. BS normal. MUSCULOSKELETAL: Extremities without clubbing, cyanosis. +2 pitting edema bilaterally, left > right. No obvious deformities. NEUROLOGICAL: Awake, alert and oriented x4. No focal neurologic deficits. Moving both upper and lower extremities spontaneously. Laboratory Laboratory Tests Test 04/20/17 12:28 04/20/17 14:40 White Blood Count 14.0 Red Blood Count 2.61 Hemoglobin 8.9 Hematocrit 27.3 Mean Corpuscular Volume 104.6 Mean Corpuscular Hemoglobin 34.1 Mean Corpuscular Hemoglobin Concent 32.6 Red Cell Distribution Width 15.9 Platelet Count 254 Mean Platelet Volume 10.3 Neutrophils (%) (Auto) 81.6 Lymphocytes (%) (Auto) 11.2 Monocytes (%) (Auto) 5.3 Eosinophils (%) (Auto) 1.3 Basophils (%) (Auto) 0.6 Neutrophils # (Auto) 11.4 Lymphocytes # (Auto) 1.6 Monocytes # (Auto) 0.7 Eosinophils # (Auto) 0.2 Basophils # (Auto) 0.1 CBC Comment DIFF FINAL Differential Comment Prothrombin Time 14.3 Prothromb Time International Ratio 1.4 Activated Partial Thromboplast Time 150.8 Blood Urea Nitrogen 93 Creatinine 7.53 Random Glucose 122 Total Protein 6.2 Albumin 2.9 Calcium Level 10.0 Alkaline Phosphatase 64 Aspartate Amino Transf (AST/SGOT) 18 Alanine Aminotransferase (ALT/SGPT) 15 Total Bilirubin 0.8 Sodium Level 138 Potassium Level 5.5 Chloride Level 101 Carbon Dioxide Level 23.1 Anion Gap 14 Estimat Glomerular Filtration Rate 7 Total Creatine Kinase 23 Troponin I 0.10 B-Type Natriuretic Peptide 256 Lipase 238 Thyroid Stimulating Hormone 3rd Gen 1.360 Lactic Acid Level 1.8 Date/Time Source Procedure Growth Status 04/20/17 14:40 Blood Peripheral Aerobic Blood Culture Pending Received 04/20/17 14:40 Blood Peripheral Anaerobic Blood Culture Pending Received (Prachi Huitron) Result Diagram: 04/20/17 1228 04/20/17 1228 Imaging Last Impressions Head CT 04/20/17 1208 Signed Impressions: Service Date/Time: Thursday, April 20, 2017 13:56 - CONCLUSION: Normal examination for a patient of this age. Farhan Kasper MD Chest X-Ray 04/20/17 1208 Signed Impressions: Service Date/Time: Thursday, April 20, 2017 13:05 - CONCLUSION: 1. Mild bibasilar opacity likely representing pleural effusions with associated volume loss and/or consolidation. 2. Severe atherosclerotic calcification of the aorta. Landon Marrero MD (Prachi Huitron) Assessment and Plan Problem List: (1) ESRD (end stage renal disease) on dialysis ICD Codes: N18.6 - End stage renal disease; Z99.2 - Dependence on renal dialysis Plan: Dialysis T/TH/S Had 1 1/2 hours of dialysis today. Will reevaluate for dialysis tomorrow. Left arm swollen will obtain ultrasound to r/o DVT (2) Hypotension ICD Codes: I95.9 - Hypotension, unspecified Status: Acute Plan: Hypotension resolved with IVF bolus and 2 units of PRBC's Will monitor (3) GI bleed ICD Codes: K92.2 - Gastrointestinal hemorrhage, unspecified Status: Acute Plan: Continue protonix gtt GI consulted (4) Hyperkalemia ICD Codes: E87.5 - Hyperkalemia Plan: Kayaxalte x 1 given will recheck in AM (Prachi Huitron) Problem List: (1) ESRD (end stage renal disease) on dialysis ICD Codes: N18.6 - End stage renal disease; Z99.2 - Dependence on renal dialysis Plan: Dialysis T/TH/S Had 1 1/2 hours of dialysis today. Will reevaluate for dialysis tomorrow. Left arm swollen will obtain ultrasound to r/o DVT. K was 5.5, given Kayexalate, follow BMP in AM. Decide about repeat HD in AM, if needed. (2) Hypotension ICD Codes: I95.9 - Hypotension, unspecified Status: Acute Plan: Hypotension resolved with IVF bolus and 2 units of PRBC's Will monitor (3) GI bleed ICD Codes: K92.2 - Gastrointestinal hemorrhage, unspecified Status: Acute Plan: Continue protonix gtt GI consulted (4) Hyperkalemia ICD Codes: E87.5 - Hyperkalemia Plan: Kayaxalte x 1 given will recheck in AM (Quiana Mayers MD) Problem Qualifiers (1) Hypotension: Qualified Codes: I95.9 - Hypotension, unspecified (2) GI bleed: Qualified Codes: K92.2 - Gastrointestinal hemorrhage, unspecified Prachi Huitron Apr 20, 2017 17:11 Quiana Mayers MD Apr 20, 2017 19:26
[2017-04-20] MEDS ORDERED: SODIUM POLYSTYRENE SULFONATE SUSP 15 GM/60 ML CUP PO ONE (17:15)
--- NOTE | 2017-04-20 18:12 | RADRPT ---
EXAM DATE/TIME: 04/20/2017 17:40 [facility] COMPARISON: No previous studies available for comparison. INDICATIONS : Left arm swelling. MEDICAL HISTORY : Hypertension. Glasses. Dentures. Abdominal pain. Renal failure. Dialysis. Arthritis. GOUT. Diabetes . C-Diff. SURGICAL HISTORY : AV fistula. Pilonidial cyst. ENCOUNTER: Initial ACUITY: 1 day PAIN SCORE: 3/10 LOCATION: Left arm. FINDINGS: There is spontaneous flow documented in the brachial, basilic, cephalic, axillary, and subclavian vei ns. The vessels are compressible and augmentation response is documented. No filling defects are se en. The flow is phasic with respiration. Direction of flow in the jugular vein is caudal. The patie nt has a patent dialysis fistula. CONCLUSION: No evidence of left upper extremity DVT. Landon Robbins MD on April 20, 2017 at 18:08 Board Certified Radiologist. This report was verified electronically.
[2017-04-20] MEDS ORDERED: SODIUM CHLOR 0.9% 1000 ML INJ 1,000 ML OTHER PRN ×2 (19:26)
[2017-04-20] MEDS ORDERED: SODIUM CHLOR 0.9% 1000 ML INJ 1,000 ML IV PRN (19:26)
[2017-04-20] MEDS ORDERED: ONDANSETRON HCL 4 MG/2 ML VIAL IV PUSH PRN (19:30)
[2017-04-20] MEDS ORDERED: cloNIDine HCL 0.1 MG TAB PO PRN (19:30)
[2017-04-20] MEDS ORDERED: GENTAMICIN SULFATE 20 MG/2 ML VIAL OTHER PRN (19:30)
[2017-04-20] MEDS ORDERED: HEPARIN SODIUM - IV 10,000 UNITS/10 ML VIAL IV FLUSH PRN (19:30)
[2017-04-20] MEDS ORDERED: NITROGLYCERIN 0.4 MG SL 25 TABS/BTL SL PRN (19:30)
[2017-04-20] MEDS ORDERED: HEPARIN SODIUM - IV 10,000 UNITS/10 ML VIAL PRN (19:30)
[2017-04-20] MEDS ORDERED: MANNITOL 12.5 GM/50 ML VIAL IV PRN (19:30)
[2017-04-20] MEDS ORDERED: diphenhydrAMINE HCL 25 MG CAP PO PRN (19:30)
[2017-04-20] MEDS: SODIUM CHLORIDE 0.9% FLUSH 10 ML FLUSH IV FLUSH SCH (21:00)
[2017-04-21] VITALS: BP 118/60; PULSE 74; RESP 17; TEMP 97.6; O2SAT 99
[2017-04-21 00:48] LABS: TROPONIN I 0.09 NG/ML (0.02-0.05)
[2017-04-21] MEDS: PANTOPRAZOLE 80 MG/100 ML NS IV SCH ×6 (01:39→22:14)
[2017-04-21 04:00] VITALS: BP 113/61; PULSE 83; RESP 22; TEMP 97.4; O2SAT 100
[2017-04-21] MEDS: CINACALCET HYDROCHLORIDE 30 MG TAB PO SCH (08:20)
[2017-04-21] MEDS: SODIUM CHLORIDE 0.9% FLUSH 10 ML FLUSH IV FLUSH SCH ×2 (08:20→21:00)
[2017-04-21] MEDS: ALLOPURINOL 100 MG TAB PO SCH (08:20)
--- NOTE | 2017-04-21 09:00 | HHI.PR ---
Subjective Remarks 76 y/o male with ESRD on hemodialysis on T, Th and Sat, who during hemodialysis he had a syncopl episode and was hypotnesive with SBP in the 70's. Patient seen during HD, alert, no abd. pain. Objective Vital Signs Date Time Temp Pulse Resp B/P (MAP) Pulse Ox O2 Delivery O2 Flow Rate FiO2 04/21/17 04:00 97.4 83 22 113/61 (78) 100 04/21/17 00:00 97.6 74 17 118/60 (79) 99 04/20/17 20:00 97.5 77 18 105/55 (72) 96 04/20/17 17:20 97.0 78 18 127/65 (85) 99 04/20/17 16:20 84 18 133/63 (86) 96 Room Air 04/20/17 14:46 78 18 141/78 (99) 100 Nasal Cannula 2.00 04/20/17 14:40 97.7 72 18 145/88 100 04/20/17 14:12 98.7 74 18 126/57 100 04/20/17 13:52 97.6 82 18 112/70 99 04/20/17 13:20 97.6 88 18 121/61 (81) 100 Nasal Cannula 2.00 04/20/17 13:20 97.6 80 18 121/67 100 04/20/17 12:56 75 18 100 Room Air 04/20/17 12:52 97.6 74 16 144/64 100 04/20/17 12:39 97.5 71 18 135/60 (85) 100 Nasal Cannula 2.00 04/20/17 12:39 18 100 Nasal Cannula 2.00 04/20/17 12:37 97.5 82 18 135/60 84 04/20/17 12:09 97.4 84 18 71/38 (49) 100 Nasal Cannula 2.00 I/O 04/20/17 04/20/17 04/20/17 04/21/17 04/21/17 04/21/17 07:00 15:00 23:00 07:00 15:00 23:00 Intake Total 1000 ml Balance 1000 ml Intake Packed Cells 800 ml Blood Product IV Normal Saline Flush 200 ml # Voids 0 # Bowel Movements 0 Result Diagram: 04/20/17 1228 04/20/17 1228 Imaging Last Impressions Head CT 04/20/17 1208 Signed Impressions: Service Date/Time: Thursday, April 20, 2017 13:56 - CONCLUSION: Normal examination for a patient of this age. Farhan Kasper MD Chest X-Ray 04/20/17 1208 Signed Impressions: Service Date/Time: Thursday, April 20, 2017 13:05 - CONCLUSION: 1. Mild bibasilar opacity likely representing pleural effusions with associated volume loss and/or consolidation. 2. Severe atherosclerotic calcification of the aorta. Landon Marrero MD Upper Extremity Ultrasound 04/20/17 0000 Signed Impressions: Service Date/Time: Thursday, April 20, 2017 17:40 - CONCLUSION: No evidence of left upper extremity DVT. Landon Robbins MD Objective Remarks GENERAL: Alert and oriented SKIN: Warm and dry. Left arm swollen HEAD: Normocephalic. EYES: No scleral icterus. No injection or drainage. NECK: Supple, trachea midline. No JVD or lymphadenopathy. CARDIOVASCULAR: Regular rate and rhythm without murmurs, gallops, or rubs. RESPIRATORY: Breath sounds equal bilaterally. No accessory muscle use. GASTROINTESTINAL: Abdomen soft, non-tender, nondistended. MUSCULOSKELETAL: No cyanosis, or edema. BACK: Nontender without obvious deformity. No CVA tenderness. Medications and IVs Current Medications Medications (Trade) Dose Ordered Sig/Jamal Route Start Time Stop Time Status Last Admin Pantoprazole Sodium 80 mg/ Sodium Chloride 100 ml @ 10 mls/hr Q10H IV 04/20/17 15:00 04/21/17 01:39 Sodium Chloride 1,000 ml @ 42 mls/hr [id number] IV 04/20/17 15:03 04/20/17 15:51 (NS Flush) 2 ml UNSCH PRN IV FLUSH 04/20/17 15:15 (NS Flush) 2 ml BID IV FLUSH 04/20/17 21:00 (Tylenol) 650 mg Q4H PRN PO 04/20/17 15:15 (Zofran Inj) 4 mg Q6H PRN IVP 04/20/17 15:15 (Narcan Inj) 0.4 mg UNSCH PRN IV PUSH 04/20/17 15:15 (Senokot) 17.2 mg Q12H PRN PO 04/20/17 15:15 (Dulcolax Supp) 10 mg DAILY PRN RECTAL 04/20/17 15:15 (Lactulose Liq) 30 ml DAILY PRN PO 04/20/17 15:15 (Zyloprim) 100 mg DAILY PO 04/21/17 09:00 04/21/17 08:20 (Sensipar) 30 mg DAILY PO 04/21/17 09:00 04/21/17 08:20 Sodium Chloride 1,000 ml @ 0 mls/hr Q0M PRN OTHER 04/20/17 19:26 (Heparin Inj) 8,000 units UNSCH PRN IV FLUSH 04/20/17 19:30 Sodium Chloride 1,000 ml @ 200 mls/hr Q5H PRN IV 04/20/17 19:26 Sodium Chloride 1,000 ml @ 0 mls/hr Q0M PRN OTHER 04/20/17 19:26 (Mannitol Inj) 12.5 gm UNSCH PRN IV 04/20/17 19:30 Albumin Human 100 ml @ 60 mls/hr UNSCH PRN IV 04/20/17 19:30 (NS Flush) 5 ml UNSCH PRN IV FLUSH 04/20/17 19:30 (Heparin Inj) UNSCH PRN .XX 04/20/17 19:30 (Gentamicin (Dialysis) Inj) 20 mg UNSCH PRN OTHER 04/20/17 19:30 (Zofran Inj) 4 mg UNSCH PRN IV PUSH 04/20/17 19:30 (Tylenol) 650 mg UNSCH PRN PO 04/20/17 19:30 (Benadryl) 25 mg UNSCH PRN PO 04/20/17 19:30 (Nitrostat Sl) 0.4 mg UNSCH PRN SL 04/20/17 19:30 (Catapres) 0.1 mg UNSCH PRN PO 04/20/17 19:30 (Epogen Inj) 10,000 units UNSCH PRN IV PUSH 04/20/17 19:30 (Gelfoam 12 Mm/7 Mm Top) 1 foam UNSCH PRN TOP 04/20/17 19:30 Assessment and Plan Problem List: (1) ESRD (end stage renal disease) on dialysis ICD Codes: N18.6 - End stage renal disease; Z99.2 - Dependence on renal dialysis Plan: Dialysis today labs are pending. Left arm swollen US negative for DVT encouraged to elevate arm. U/S showing no DVT, will get Fistulogram for possible venous stenosis. (2) Hypotension ICD Codes: I95.9 - Hypotension, unspecified Status: Acute Plan: Blood pressure improved at 113/61 today after transfusion of 2 units of PRBC and IVF Will continue to monitor. (3) GI bleed ICD Codes: K92.2 - Gastrointestinal hemorrhage, unspecified Status: Acute Plan: Continue protonix gtt GI consulted. On Epogen, follow the Hgb. (4) Hyperkalemia ICD Codes: E87.5 - Hyperkalemia Plan: Labs pending dialysis today and labs will be obtained Discussed Condition With nursing Problem Qualifiers (1) Hypotension: Qualified Codes: I95.9 - Hypotension, unspecified (2) GI bleed: Qualified Codes: K92.2 - Gastrointestinal hemorrhage, unspecified Prachi Huitron Apr 21, 2017 09:00 Quiana Mayers MD Apr 21, 2017 10:37
[2017-04-21] MEDS: EPOETIN ALFA 10,000 UNITS/ML VIAL IV PUSH PRN (09:03)
[2017-04-21] MEDS: GELATIN 12 MM/7 MM FOAM TOP PRN (09:03)
[2017-04-21] MEDS: ALBUMIN 25% INJ 100 ML IV PRN (09:03)
[2017-04-21 11:17] VITALS: O2SAT 100
[2017-04-21 12:00] VITALS: BP 115/57; PULSE 80; RESP 18; TEMP 97.5; O2SAT 100
--- NOTE | 2017-04-21 12:40 | HHI.PR ---
Subjective Remarks Patient reports he is feeling okay today. He denies lightheadedness. Last bowel movement was yesterday. No nausea or vomiting. Objective Vitals Vital Signs Date Time Temp Pulse Resp B/P (MAP) Pulse Ox O2 Delivery O2 Flow Rate FiO2 04/21/17 11:17 100 Nasal Cannula 2.00 04/21/17 04:00 97.4 83 22 113/61 (78) 100 04/21/17 00:00 97.6 74 17 118/60 (79) 99 04/20/17 20:00 97.5 77 18 105/55 (72) 96 04/20/17 17:20 97.0 78 18 127/65 (85) 99 04/20/17 16:20 84 18 133/63 (86) 96 Room Air 04/20/17 14:46 78 18 141/78 (99) 100 Nasal Cannula 2.00 04/20/17 14:40 97.7 72 18 145/88 100 04/20/17 14:12 98.7 74 18 126/57 100 04/20/17 13:52 97.6 82 18 112/70 99 04/20/17 13:20 97.6 88 18 121/61 (81) 100 Nasal Cannula 2.00 04/20/17 13:20 97.6 80 18 121/67 100 04/20/17 12:56 75 18 100 Room Air 04/20/17 12:52 97.6 74 16 144/64 100 I/O 04/20/17 04/20/17 04/20/17 04/21/17 04/21/17 04/21/17 07:00 15:00 23:00 07:00 15:00 23:00 Intake Total 1000 ml 200 ml Output Total 1500 ml Balance 1000 ml -1300 ml Intake IV Total 200 ml Packed Cells 800 ml Blood Product IV Normal Saline Flush 200 ml Hemodialysis 1500 ml # Voids 0 # Bowel Movements 0 Result Diagram: 04/20/17 1228 04/20/17 1228 Objective Remarks GENERAL: Obese, elderly male. in no apparent distress. CARDIOVASCULAR: Normal rate and regular rhythm. There is a 4/6 SARAH murmur loudest over the right upper sternal border RESPIRATORY: Good respiratory efforts. Breath sounds equal and clear to auscultation bilaterally. GASTROINTESTINAL: Abdomen soft, non-tender, non-distended. Normal active bowel sounds MUSCULOSKELETAL: Extremities without cyanosis, or edema. NEURO: Alert & Oriented x4 to person, place, time, situation. Moves all ext x4 PSYCH: Appropriate mood and affect. A/P Assessment and Plan 76-year-old male with a medical history significant for severe aortic stenosis in need of TAVR, end-stage renal disease on hemodialysis, recent diagnosis of C. difficile colitis. The patient was recently discharged to halfway facility for rehabilitation, during dialysis, he had an acute episode of near syncope and hypotension. Workup in the emergency room revealed positive stool Hemoccult Near syncope, recurrent falls by history: Likely related to severe aortic stenosis and debility. Patient will need TAVR per previous wax cutter recommendations but needs dental work first. Continue rehabilitation efforts with PT. Acute on chronic anemia likely secondary to GI bleeding. Status post blood transfusion two units of PRBCs. - Continue to monitor H&H. Lab pending today. We'll follow up. Severe Aortic Stenosis: Patient needs TAVR as above. Will need follow-up with cardiology once his dental issues has been taken care of. Poor dentition: Multiple decayed teeth. Patient advised to follow-up with the dentist outpatient [facility]. ESRD on HD: T//Wed, who had Hypotension while on hemodialysis. No obvious signs of sepsis. -Nephrology consulted. Hemodialysis per nephrology. HTN: Controlled. Continue current medications GI bleed - GI consulted. Continue to monitor H&H. - On Protonix drip. C. difficile positive: - On vancomycin by mouth. Cervical stenosis: Previously seen by Neurosurgery. No surgical intervention planned. No new neurological findings. Continue to monitor. DVT Prophylaxis: Coral Leong MD Apr 21, 2017 12:40
--- NOTE | 2017-04-21 13:47 | PD.CONS ---
HPI History of Present Illness This is a 76 year old male with hx ESRD on HD, HTN, DM, skin ca, aortic stenosis , gout who presented after a syncopal episode at [facility]. He says he is here b/ c he needs a dentist. GI has been consulted for poss GIB. Per EMR, EMS noted melanotic stool. Stool is heme pos. Pt admits seeing black tarry stool for a couple of weeks. He was recently hospitalized with fluid overload and treated for c diff with Flagyl due to stop 04/12/17. He is on blood thinners but does not know which one. he is recently s/p cardiac cath 03/2017. He has been told he needs a TAVR but he cannot have it until he has dental work. He denies abd pain, constipation, hematemesis, weight loss, prior hx GIB. He had EGD and colonoscopy 4-5 y ago at the [facility] and per pt no abnormal findings. Poor historian. (Jessica Weathers) PFSH Past Medical History Hypertension diet conrolled DM II Hypelipidemia ESRD on HD T//Wed Past Surgical History AV Fistula Pilonidal Cyst (Jessica Weathers) Coded Allergies: No Known Allergies (Verified Allergy, Unknown, 03/25/17) Family History Mother with Dm II and Father with Hypertension. Social History Denies any toxic habits. (Jessica Weathers) Review of Systems Constitutional: DENIES: Fever Endocrine: DENIES: Polydipsia Eyes: DENIES: Blurred vision Ears, nose, mouth, throat: DENIES: Hearing loss Respiratory: DENIES: Cough Cardiovascular: DENIES: Chest pain Gastrointestinal: COMPLAINS OF: Black stools, DENIES: Abdominal pain, Bloody stools, Constipation, Diarrhea, Nausea, Vomiting, Hematemesis Genitourinary: DENIES: Hematuria Musculoskeletal: DENIES: Joint Swelling Integumentary: DENIES: Abnormal pigmentation Hematologic/lymphatic: DENIES: Bruising Neurologic: DENIES: Abnormal gait Psychiatric: DENIES: Anxiety (Jessica Weathers) GI Exam Vitals I&O Vital Signs Date Time Temp Pulse Resp B/P (MAP) Pulse Ox O2 Delivery O2 Flow Rate FiO2 04/21/17 11:17 100 Nasal Cannula 2.00 1/17/18 04:00 97.4 83 22 113/61 (78) 100 04/21/17 00:00 97.6 74 17 118/60 (79) 99 04/20/17 20:00 97.5 77 18 105/55 (72) 96 04/20/17 17:20 97.0 78 18 127/65 (85) 99 04/20/17 16:20 84 18 133/63 (86) 96 Room Air 04/20/17 14:46 78 18 141/78 (99) 100 Nasal Cannula 2.00 04/20/17 14:40 97.7 72 18 145/88 100 04/20/17 14:12 98.7 74 18 126/57 100 04/20/17 13:52 97.6 82 18 112/70 99 I/O 04/20/17 04/20/17 04/20/17 04/21/17 04/21/17 04/21/17 07:00 15:00 23:00 07:00 15:00 23:00 Intake Total 1000 ml 200 ml Output Total 1500 ml Balance 1000 ml -1300 ml Intake IV Total 200 ml Packed Cells 800 ml Blood Product IV Normal Saline Flush 200 ml Hemodialysis 1500 ml # Voids 0 # Bowel Movements 0 Imaging Last Impressions Head CT 04/20/17 1208 Signed Impressions: Service Date/Time: Thursday, April 20, 2017 13:56 - CONCLUSION: Normal examination for a patient of this age. Farhan Kasper MD Chest X-Ray 04/20/17 1208 Signed Impressions: Service Date/Time: Thursday, April 20, 2017 13:05 - CONCLUSION: 1. Mild bibasilar opacity likely representing pleural effusions with associated volume loss and/or consolidation. 2. Severe atherosclerotic calcification of the aorta. Landon Marrero MD Upper Extremity Ultrasound 04/20/17 0000 Signed Impressions: Service Date/Time: Thursday, April 20, 2017 17:40 - CONCLUSION: No evidence of left upper extremity DVT. Landon Robbins MD Laboratory Test 04/20/17 14:40 04/20/17 18:59 04/21/17 00:07 Lactic Acid Level 1.8 mmol/L Stool C. difficile Toxin (PCR) POSITIVE Stl C. difficile Toxin Epiderm 027 PRESUMPTIVE NEGATIVE Total Creatine Kinase 20 U/L Troponin I 0.09 NG/ML Date/Time Source Procedure Growth Status 04/20/17 14:40 Blood Peripheral Aerobic Blood Culture - Preliminary NO GROWTH IN 1 DAY Resulted 04/20/17 14:40 Blood Peripheral Anaerobic Blood Culture - Preliminary NO GROWTH IN 1 DAY Resulted Physical Examination HEENT: PERRL; normocephalic; atraumatic; no jaundice. poor dentition CHEST: CTA CARDIAC: RRR + murmur ABDOMEN: Soft, nondistended, nontender; no hepatosplenomegaly; bowel sounds are present in all four quadrants. EXTREMITIES: No clubbing, cyanosis. RUE edema, fistula SKIN: Normal; no rash; no jaundice. ADULT MINISTRIES DIRECTOR: No focal deficits; alert and oriented times three. (Jessica Weathers) Assessment and Plan Plan ASSESSMENT - melanotic stool - pt has had for couple weeks. poor historian. heme pos stool in ER. - anemia - hgb 8.9, macrocytic. likely multifactorial. last EGD/colonoscopy 5y ago and normal per pt - pos c diff tox pcr - having dark tarry stool. dx c diff prev admission and given flagyl due to stop 04/12/17. - ESRD on HD- nephrology following - cervical stenosis - neurosurgery following - aortic stenosis - TAVR pending dental work PLAN - consider EGD and colonoscopy with cardiac clearance - vancomycin 125 mg PO q6h - monitor labs - transfuse as needed - supportive care - PPI - further recs to follow this pt seen by myself and Dr Peña and this note is written on his behalf (Jessica Weathers) Physician Comments Patient seen and examined Agree with above Continue with current supportive care Monitor labs Endoscopy to follow cardiac clearance Vancomycin for C. difficile colitis (Jeremiah Peña MD) Jessica Weathers Apr 21, 2017 13:47 Jeremiah Peña MD Apr 22, 2017 00:00
[2017-04-21 15:26] LABS: AUTOMATED NEUTROPHIL # 7.4 TH/MM3 (1.8-7.7); BASOPHIL # 0.1 TH/MM3 (0-0.2); EOSINOPHIL # 0.4 TH/MM3 (0-0.4); EOSINOPHIL % 4.4 % (0.0-4.0); HEMATOCRIT 29.2 % (39.0-51.0); HEMOGLOBIN 9.9 GM/DL (13.0-17.0); MEAN CELL VOLUME 100.8 FL (80.0-100.0); MEAN CORPUSCULAR HEMOGLOBIN 34.1 PG (27.0-34.0); MEAN CORPUSCULAR HGB CONC 33.8 % (32.0-36.0); MEAN PLATELET VOLUME 9.1 FL (7.0-11.0); MONO % 8.3 % (0.0-8.0); MONOCYTE # 0.8 TH/MM3 (0-0.9); NEUT % 76.3 % (16.0-70.0); PLATELET COUNT 168 TH/MM3 (150-450); RED CELL DISTRIBUTION WIDTH 16.7 % (11.6-17.2); WHITE BLOOD COUNT 9.7 TH/MM3 (4.0-11.0)
[2017-04-21] MEDS: SODIUM CHLOR 0.9% 1000 ML INJ 1,000 ML IV SCH (15:27)
[2017-04-21 15:49] LABS: AST (GOT) 10 U/L (15-37); BICARBONATE 26.7 MEQ/L (21.0-32.0); BLOOD UREA NITROGEN 72 MG/DL (7-18); CALCIUM 9.1 MG/DL (8.5-10.1); CHLORIDE 104 MEQ/L (98-107); CREATININE 6.11 MG/DL (0.60-1.30); GLOMERULAR FILTRATION RATE 9 ML/MIN (>89); GLUCOSE,RANDOM 109 MG/DL (74-106); SODIUM (NA) 141 MEQ/L (136-145)
[2017-04-21 15:54] LABS: ALKALINE PHOSPHATASE 56 U/L (45-117); ALT (GPT) 17 U/L (12-78); TOTAL BILIRUBIN ADULT 0.8 MG/DL (0.2-1.0); TOTAL PROTEIN 5.9 GM/DL (6.4-8.2)
[2017-04-21 16:00] VITALS: BP 117/58; PULSE 81; RESP 18; TEMP 97.8; O2SAT 100
[2017-04-21] MEDS: VANCOMYCIN 500 MG VIAL (FOR ORAL USE ONLY) PO SCH ×2 (17:37→22:12)
[2017-04-21 20:00] VITALS: BP 141/61; PULSE 82; RESP 19; TEMP 98; O2SAT 100
[2017-04-22] VITALS: BP 118/59; PULSE 74; RESP 18; TEMP 97.7; O2SAT 99
[2017-04-22 04:00] VITALS: BP 122/58; PULSE 73; RESP 17; TEMP 97.9; O2SAT 99
[2017-04-22] MEDS: PANTOPRAZOLE 80 MG/100 ML NS IV SCH ×4 (07:11→16:32)
[2017-04-22] MEDS: SODIUM CHLOR 0.9% 1000 ML INJ 1,000 ML IV SCH (07:12)
[2017-04-22 07:38] LABS: HEMOGLOBIN 8.1 GM/DL (13.0-17.0); MEAN CORPUSCULAR HEMOGLOBIN 34.3 PG (27.0-34.0); MEAN CORPUSCULAR HGB CONC 33.9 % (32.0-36.0); MEAN PLATELET VOLUME 9.7 FL (7.0-11.0); PLATELET COUNT 131 TH/MM3 (150-450); RED BLOOD COUNT 2.37 MIL/MM3 (4.50-5.90); RED CELL DISTRIBUTION WIDTH 16.6 % (11.6-17.2); WHITE BLOOD COUNT 4.9 TH/MM3 (4.0-11.0)
[2017-04-22 08:00] VITALS: BP 141/66; PULSE 66; PULSE 73; RESP 17; TEMP 97.7; O2SAT 99
[2017-04-22 08:01] LABS: BICARBONATE 27.9 MEQ/L (21.0-32.0); CALCIUM 9.2 MG/DL (8.5-10.1); CREATININE 7.02 MG/DL (0.60-1.30)
--- NOTE | 2017-04-22 09:18 | HHI.NPPN ---
Subjective History of Present Illness Patient is a very pleasant 76 y/o male with ESRD on hemodialysis on T, Th and Sat, who during hemodialysis he had a syncopl episode and was hypotnesive with SBP in the 70's. He has had recent admission due to fluid overload and found also C Diff positive was reported a melenic stool by EMS HGB at 8.9. Hemocult stool positive. Potassium is elevated at 5.5 at ER. Additional Remarks Patient is resting comfortably with no complaints. Denies any SOB or any lightheadedness (Prachi Huitron) General Problems: Anemia, Edema, Hypertension Renal Failure: End Stage Renal Disease (Quiana Mayers MD) Review of Systems General General Remarks Resting comfortably (Prachi Huitron) Respiratory Respiratory Remarks Denies SOB (Prachi Huitron) Cardiovascular Cardiac: Edema Cardiac Remarks Denies CP, Edema noted in left upper extremity (Prachi Huitron) Gastrointestinal GI Remarks Denies abdominal pain (Prachi Huitron) Genitourinary Remarks Denies Dysuria (Prachi Huitron) Objective Data Data Vital Signs Date Time Temp Pulse Resp B/P (MAP) Pulse Ox O2 Delivery O2 Flow Rate FiO2 04/22/17 04:00 97.9 73 17 122/58 (79) 99 04/22/17 00:00 97.7 74 18 118/59 (78) 99 04/21/17 20:00 98.0 82 19 141/61 (87) 100 04/21/17 16:00 97.8 81 18 117/58 (77) 100 04/21/17 12:00 97.5 80 18 115/57 (76) 100 04/21/17 11:17 100 Nasal Cannula 2.00 (Prachi Huitron) -: 04/22/17 0655 04/22/17 0655 Imaging Last Impressions Head CT 04/20/17 1208 Signed Impressions: Service Date/Time: Thursday, April 20, 2017 13:56 - CONCLUSION: Normal examination for a patient of this age. Farhan Kasper MD Chest X-Ray 04/20/17 1208 Signed Impressions: Service Date/Time: Thursday, April 20, 2017 13:05 - CONCLUSION: 1. Mild bibasilar opacity likely representing pleural effusions with associated volume loss and/or consolidation. 2. Severe atherosclerotic calcification of the aorta. Landon Marrero MD Upper Extremity Ultrasound 04/20/17 0000 Signed Impressions: Service Date/Time: Thursday, April 20, 2017 17:40 - CONCLUSION: No evidence of left upper extremity DVT. Landon Robbins MD (Gellermann,Prachi M. SLEEPING CAR SERVICE ATTENDANT) Physical Exam General Appearance: Well Nourished, No Acute Distress, Comfortable (Gellermann,Prachi M. SLEEPING CAR SERVICE ATTENDANT) Eyes Eye Exam: Pupils Equal (Gellermann,Prachi M. SLEEPING CAR SERVICE ATTENDANT) Throat Throat Exam: Oral Mucosa [place] & Moist (Gellermann,Prachi M. SLEEPING CAR SERVICE ATTENDANT) Neck Neck Exam: Neck Supple (Gellermann,Prachi M. SLEEPING CAR SERVICE ATTENDANT) Pulmonary Resp Exam: Breath Sounds Equal, No Distress (Gellermann,Prachi M. SLEEPING CAR SERVICE ATTENDANT) Cardiology CV Exam: Normal Sinus Rhythm, Murmur (Gellermann,Prachi M. SLEEPING CAR SERVICE ATTENDANT) Gastrointestinal/Abdomen GI Exam: Soft, Non-Tender (Gellermann,Prachi M. SLEEPING CAR SERVICE ATTENDANT) Genitourinary Exam: Flank Non-Tender (Gellermann,Prachi M. SLEEPING CAR SERVICE ATTENDANT) Integumentary Skin Exam: Clear, Warm (Gellermann,Prachi M. SLEEPING CAR SERVICE ATTENDANT) Extremeties Extremities Exam: Moderate Edema (Gellermann,Prachi M. SLEEPING CAR SERVICE ATTENDANT) Neurologic Neuro Exam: Alert, Awake, Oriented, Speech Clear (Gellermann,Prachi M. SLEEPING CAR SERVICE ATTENDANT) Psychiatric Psych Exam: Appropriate Responses (Gellermann,Prachi M. SLEEPING CAR SERVICE ATTENDANT) PUD Prophylasis PUD Prophylaxis: Protonix (Gellermann,Prachi M. SLEEPING CAR SERVICE ATTENDANT) Assessment/Plan Discussed Condition With: Patient Assessment Summary: End Stage Renal Disease Problem List: (1) ESRD (end stage renal disease) on dialysis ICD Codes: N18.6 - End stage renal disease; Z99.2 - Dependence on renal dialysis Plan: Left arm elevated and edema is improving. U/S showing no DVT, will get Fistulogram for possible venous stenosis. (2) Hypotension ICD Codes: I95.9 - Hypotension, unspecified Status: Acute Plan: Resolved blood pressure stable at 122/58 (3) Anemia ICD Codes: D64.9 - Anemia Status: Acute Plan: HGB 8.1 this morning from 9.9 yesterday Epogen 10,000 units after each dialysis (4) C. difficile diarrhea ICD Codes: A04.72 - Enterocolitis due to Clostridium difficile, not specified as recurrent Status: Acute Plan: On vancomycin orally (5) GI bleed ICD Codes: K92.2 - Gastrointestinal hemorrhage, unspecified Status: Acute Plan: Stool positive for occult blood Protonix gtt GI managing Plan for possible EGD and colonoscopy with cardiac clearance (Prachi Huitron) Problem List: (1) ESRD (end stage renal disease) on dialysis ICD Codes: N18.6 - End stage renal disease; Z99.2 - Dependence on renal dialysis Plan: Left arm elevated and edema is improving. U/S showing no DVT, will get Fistulogram for possible venous stenosis. (2) Hypotension ICD Codes: I95.9 - Hypotension, unspecified Status: Acute Plan: Resolved blood pressure stable at 122/58 (3) Anemia ICD Codes: D64.9 - Anemia Status: Acute Plan: HGB 8.1 this morning from 9.9 yesterday Epogen 10,000 units after each dialysis (4) C. difficile diarrhea ICD Codes: A04.72 - Enterocolitis due to Clostridium difficile, not specified as recurrent Status: Acute Plan: On vancomycin orally (5) GI bleed ICD Codes: K92.2 - Gastrointestinal hemorrhage, unspecified Status: Acute Plan: Stool positive for occult blood Protonix gtt GI managing Plan for possible EGD and colonoscopy with cardiac clearance (Quiana Mayers MD) Problem Qualifiers (1) Hypotension: Qualified Codes: I95.9 - Hypotension, unspecified (2) GI bleed: Qualified Codes: K92.2 - Gastrointestinal hemorrhage, unspecified Prachi Huitron Apr 22, 2017 09:18 Quiana Mayers MD Apr 22, 2017 20:48
[2017-04-22] MEDS: CINACALCET HYDROCHLORIDE 30 MG TAB PO SCH (09:42)
[2017-04-22] MEDS: ALLOPURINOL 100 MG TAB PO SCH (09:43)
[2017-04-22] MEDS: SODIUM CHLORIDE 0.9% FLUSH 10 ML FLUSH IV FLUSH SCH ×2 (09:43→21:00)
[2017-04-22] MEDS: VANCOMYCIN 500 MG VIAL (FOR ORAL USE ONLY) PO SCH ×4 (09:43→21:24)
--- NOTE | 2017-04-22 10:05 | PD.CONS ---
HPI Consult Requested By Primary Care Physician [facility] History of Present Illness 76 year old male with hx ESRD on HD, HTN, DM, skin ca, aortic stenosis, gout who presented after a syncopal episode at dialysis. GI has been consulted for GIB. Per EMR, EMS noted melanotic stool. Cardiology consulted for risk assessment prior to EGD. He denies chest pain, SOB, palpitations, syncope Review of Systems Consitutional: DENIES: Fatigue, Fever, Chills, Weight gain, Weight loss Eyes: DENIES: Amaurosis Fugax, Change in vision HEENT: DENIES: Lightheadedness, Change in hearing Respiratory: DENIES: See HPI, Cough, Snoring, Shortness of breath, Wheezing, Sputum production Cardiovascular: DENIES: See HPI, Chest pain, Palpitations, Syncope, Tachycardia Gastrointestinal: DENIES: Nausea, Vomiting, Change in bowel habits, Reflux, Bloody stools, Melena Genitourinary: DENIES: Urinary incontinence, Difficulty voiding Integumentary: DENIES: Rash Neurologic: DENIES: Tingling or numbness, Memory problems, Poor Balance, Stroke symptoms Musculoskeletal: DENIES: Joint pain, Muscle pain, Limited range of motion, Back pain Psychiatric: DENIES: Anxiety, Depression, Sleep disturbances Hematologic: DENIES: Bruising tendencies, Bleeding tendencies Endocrine: DENIES: Weight gain, Weight loss, Thyroid disease Past Family Social History Allergies: Coded Allergies: No Known Allergies (Verified Allergy, Unknown, 03/25/17) Past Medical History Hypertension diet conrolled DM II Hypelipidemia ESRD on HD T//Wed Past Surgical History AV Fistula Pilonidal Cyst Reported Medications Reported Meds & Active Scripts Active Hydralazine HCl 10 Mg Tablet 10 Mg PO Q8HR Reported Carvedilol 25 Mg Tab 25 Mg PO BID Allopurinol 100 Mg Tab 100 Mg PO DAILY Sensipar (Cinacalcet) 30 Mg Tab 30 Mg PO DAILY Naproxen 250 Mg Tab 250 Mg PO BID Active Ordered Medications Current Medications Medications (Trade) Dose Ordered Sig/Jamal Route Start Time Stop Time Status Last Admin Pantoprazole Sodium 80 mg/ Sodium Chloride 100 ml @ 10 mls/hr Q10H IV 04/20/17 15:00 04/22/17 07:11 Sodium Chloride 1,000 ml @ 42 mls/hr [id number] IV 04/20/17 15:03 04/22/17 07:12 (NS Flush) 2 ml UNSCH PRN IV FLUSH 04/20/17 15:15 (NS Flush) 2 ml BID IV FLUSH 04/20/17 21:00 (Tylenol) 650 mg Q4H PRN PO 04/20/17 15:15 (Zofran Inj) 4 mg Q6H PRN IVP 04/20/17 15:15 (Narcan Inj) 0.4 mg UNSCH PRN IV PUSH 04/20/17 15:15 (Senokot) 17.2 mg Q12H PRN PO 04/20/17 15:15 (Dulcolax Supp) 10 mg DAILY PRN RECTAL 04/20/17 15:15 (Lactulose Liq) 30 ml DAILY PRN PO 04/20/17 15:15 (Zyloprim) 100 mg DAILY PO 04/21/17 09:00 04/22/17 09:43 (Sensipar) 30 mg DAILY PO 04/21/17 09:00 04/22/17 09:42 Sodium Chloride 1,000 ml @ 0 mls/hr Q0M PRN OTHER 04/20/17 19:26 (Heparin Inj) 8,000 units UNSCH PRN IV FLUSH 04/20/17 19:30 Sodium Chloride 1,000 ml @ 200 mls/hr Q5H PRN IV 04/20/17 19:26 Sodium Chloride 1,000 ml @ 0 mls/hr Q0M PRN OTHER 04/20/17 19:26 (Mannitol Inj) 12.5 gm UNSCH PRN IV 04/20/17 19:30 Albumin Human 100 ml @ 60 mls/hr UNSCH PRN IV 04/20/17 19:30 04/21/17 09:03 (NS Flush) 5 ml UNSCH PRN IV FLUSH 04/20/17 19:30 (Heparin Inj) UNSCH PRN .XX 04/20/17 19:30 (Gentamicin (Dialysis) Inj) 20 mg UNSCH PRN OTHER 04/20/17 19:30 (Zofran Inj) 4 mg UNSCH PRN IV PUSH 04/20/17 19:30 (Tylenol) 650 mg UNSCH PRN PO 04/20/17 19:30 (Benadryl) 25 mg UNSCH PRN PO 04/20/17 19:30 (Nitrostat Sl) 0.4 mg UNSCH PRN SL 04/20/17 19:30 (Catapres) 0.1 mg UNSCH PRN PO 04/20/17 19:30 (Epogen Inj) 10,000 units UNSCH PRN IV PUSH 04/20/17 19:30 04/21/17 09:03 (Gelfoam 12 Mm/7 Mm Top) 1 foam UNSCH PRN TOP 04/20/17 19:30 04/21/17 09:03 (VANCOMYCIN for oral use only) 125 mg QID PO 04/21/17 18:00 04/22/17 09:43 Family History Mother with Dm II and Father with Hypertension. Social History Denies any toxic habits. Physical Exam Vital Signs Vital Signs Date Time Temp Pulse Resp B/P (MAP) Pulse Ox O2 Delivery O2 Flow Rate FiO2 04/22/17 08:00 97.7 73 17 141/66 (91) 99 04/22/17 04:00 97.9 73 17 122/58 (79) 99 04/22/17 00:00 97.7 74 18 118/59 (78) 99 04/21/17 20:00 98.0 82 19 141/61 (87) 100 04/21/17 16:00 97.8 81 18 117/58 (77) 100 04/21/17 12:00 97.5 80 18 115/57 (76) 100 04/21/17 11:17 100 Nasal Cannula 2.00 Physical Exam GENERAL: Well-nourished, well-developed patient. SKIN: Warm and dry. HEAD: Normocephalic. EYES: No scleral icterus. No injection or drainage. NECK: Supple, trachea midline. No JVD or lymphadenopathy. CARDIOVASCULAR: Regular rate and rhythm 3/6 SARAH. RESPIRATORY: Breath sounds equal bilaterally. No accessory muscle use. GASTROINTESTINAL: Abdomen soft, non-tender, nondistended. EXTREMITIES: No cyanosis, or edema. NEUROLOGICAL: Awake, alert, and oriented x 3. Non-focal. Laboratory Laboratory Tests Test 04/21/17 15:13 04/22/17 06:55 White Blood Count 9.7 4.9 Red Blood Count 2.90 2.37 Hemoglobin 9.9 8.1 Hematocrit 29.2 24.0 Mean Corpuscular Volume 100.8 101.0 Mean Corpuscular Hemoglobin 34.1 34.3 Mean Corpuscular Hemoglobin Concent 33.8 33.9 Red Cell Distribution Width 16.7 16.6 Platelet Count 168 131 Mean Platelet Volume 9.1 9.7 Neutrophils (%) (Auto) 76.3 Lymphocytes (%) (Auto) 10.0 Monocytes (%) (Auto) 8.3 Eosinophils (%) (Auto) 4.4 Basophils (%) (Auto) 1.0 Neutrophils # (Auto) 7.4 Lymphocytes # (Auto) 1.0 Monocytes # (Auto) 0.8 Eosinophils # (Auto) 0.4 Basophils # (Auto) 0.1 CBC Comment DIFF FINAL Differential Comment Blood Urea Nitrogen 72 76 Creatinine 6.11 7.02 Random Glucose 109 88 Total Protein 5.9 Albumin 3.0 Calcium Level 9.1 9.2 Alkaline Phosphatase 56 Aspartate Amino Transf (AST/SGOT) 10 Alanine Aminotransferase (ALT/SGPT) 17 Total Bilirubin 0.8 Sodium Level 141 142 Potassium Level 4.5 4.2 Chloride Level 104 105 Carbon Dioxide Level 26.7 27.9 Anion Gap 10 9 Estimat Glomerular Filtration Rate 9 8 Total Creatine Kinase 18 Troponin I 0.10 Date/Time Source Procedure Growth Status 04/20/17 14:40 Blood Peripheral Aerobic Blood Culture - Preliminary NO GROWTH IN 1 DAY Resulted 04/20/17 14:40 Blood Peripheral Anaerobic Blood Culture - Preliminary NO GROWTH IN 1 DAY Resulted Result Diagram: 04/22/17 0655 04/22/17 0655 Imaging Last Impressions Head CT 04/20/17 1208 Signed Impressions: Service Date/Time: Thursday, April 20, 2017 13:56 - CONCLUSION: Normal examination for a patient of this age. Farhan Kasper MD Chest X-Ray 04/20/17 1208 Signed Impressions: Service Date/Time: Thursday, April 20, 2017 13:05 - CONCLUSION: 1. Mild bibasilar opacity likely representing pleural effusions with associated volume loss and/or consolidation. 2. Severe atherosclerotic calcification of the aorta. Landon Marrero MD Upper Extremity Ultrasound 04/20/17 0000 Signed Impressions: Service Date/Time: Thursday, April 20, 2017 17:40 - CONCLUSION: No evidence of left upper extremity DVT. Landon Robbins MD Assessment and Plan Problem List: (1) GI bleed ICD Codes: K92.2 - Gastrointestinal hemorrhage, unspecified Status: Acute Plan: 76 year old male with GIB, melanotic stool consulted for risk assessment prior to EGD. He denies chest pain, SOB, palpitations, syncope. He is undergoing low risk procedure, no active cardiac complaints hx of noted and pending Dentist appt for replacement. Difficult to assess overall functional status given debility, however he remains stable from standpoint. No need for further cardiac work up at this point prior to EGD/Colonoscopy. Thank you for the opportunity to participate in the care of this patient Will be available on a PRN basis for any questions or concerns (2) DM2 (diabetes mellitus, type 2) ICD Codes: E11.9 - DM2 (diabetes mellitus, type 2) Status: Acute (3) HTN (hypertension) ICD Codes: I10 - HTN (hypertension) Status: Acute (4) Diabetes mellitus ICD Codes: E11.9 - Diabetes mellitus Status: Chronic (5) Anemia ICD Codes: D64.9 - Anemia Status: Acute (6) Hyperlipidemia ICD Codes: E78.5 - Hyperlipidemia Status: Chronic (7) CKD (chronic kidney disease) stage V requiring chronic dialysis ICD Codes: N18.6 - CKD (chronic kidney disease) stage V requiring chronic dialysis; Z99.2 - Dependence on renal dialysis Status: Chronic (8) Aortic valvar stenosis ICD Codes: I35.0 - Nonrheumatic aortic (valve) stenosis (9) ESRD (end stage renal disease) on dialysis ICD Codes: N18.6 - End stage renal disease; Z99.2 - Dependence on renal dialysis (10) C. difficile diarrhea ICD Codes: A04.72 - Enterocolitis due to Clostridium difficile, not specified as recurrent Status: Acute Problem Qualifiers (1) GI bleed: Qualified Codes: K92.2 - Gastrointestinal hemorrhage, unspecified Jasson Sewell MD Apr 22, 2017 10:05
[2017-04-22 12:00] VITALS: BP 122/59; PULSE 84; RESP 18; TEMP 97.5; O2SAT 99
--- NOTE | 2017-04-22 13:35 | HHI.GIFU ---
Subjective Remarks Pt resting in bed. He is upset that nobody has addressed his tooth yet. Denies obvious bleeding, abd pain. (Jessica Weathers) Objective Vitals I&O Vital Signs Date Time Temp Pulse Resp B/P (MAP) Pulse Ox O2 Delivery O2 Flow Rate FiO2 04/22/17 08:00 97.7 73 17 141/66 (91) 99 04/22/17 08:00 66 04/22/17 04:00 97.9 73 17 122/58 (79) 99 04/22/17 00:00 97.7 74 18 118/59 (78) 99 04/21/17 20:00 98.0 82 19 141/61 (87) 100 04/21/17 16:00 97.8 81 18 117/58 (77) 100 I/O 04/21/17 04/21/17 04/21/17 04/22/17 04/22/17 04/22/17 07:00 15:00 23:00 07:00 15:00 23:00 Intake Total 440 ml Output Total 1500 ml Balance -1060 ml Intake Oral 240 ml IV Total 200 ml Hemodialysis 1500 ml # Voids 0 0 # Bowel Movements 0 0 0 Laboratory Laboratory Tests Test 04/21/17 15:13 04/22/17 06:55 White Blood Count 9.7 4.9 Red Blood Count 2.90 2.37 Hemoglobin 9.9 8.1 Hematocrit 29.2 24.0 Mean Corpuscular Volume 100.8 101.0 Mean Corpuscular Hemoglobin 34.1 34.3 Mean Corpuscular Hemoglobin Concent 33.8 33.9 Red Cell Distribution Width 16.7 16.6 Platelet Count 168 131 Mean Platelet Volume 9.1 9.7 Neutrophils (%) (Auto) 76.3 Lymphocytes (%) (Auto) 10.0 Monocytes (%) (Auto) 8.3 Eosinophils (%) (Auto) 4.4 Basophils (%) (Auto) 1.0 Neutrophils # (Auto) 7.4 Lymphocytes # (Auto) 1.0 Monocytes # (Auto) 0.8 Eosinophils # (Auto) 0.4 Basophils # (Auto) 0.1 CBC Comment DIFF FINAL Differential Comment Blood Urea Nitrogen 72 76 Creatinine 6.11 7.02 Random Glucose 109 88 Total Protein 5.9 Albumin 3.0 Calcium Level 9.1 9.2 Alkaline Phosphatase 56 Aspartate Amino Transf (AST/SGOT) 10 Alanine Aminotransferase (ALT/SGPT) 17 Total Bilirubin 0.8 Sodium Level 141 142 Potassium Level 4.5 4.2 Chloride Level 104 105 Carbon Dioxide Level 26.7 27.9 Anion Gap 10 9 Estimat Glomerular Filtration Rate 9 8 Total Creatine Kinase 18 Troponin I 0.10 Date/Time Source Procedure Growth Status 04/20/17 14:40 Blood Peripheral Aerobic Blood Culture - Preliminary NO GROWTH IN 2 DAYS Resulted 04/20/17 14:40 Blood Peripheral Anaerobic Blood Culture - Preliminary NO GROWTH IN 2 DAYS Resulted Imaging Last Impressions Head CT 04/20/17 1208 Signed Impressions: Service Date/Time: Thursday, April 20, 2017 13:56 - CONCLUSION: Normal examination for a patient of this age. Farhan Kasper MD Chest X-Ray 04/20/17 1208 Signed Impressions: Service Date/Time: Thursday, April 20, 2017 13:05 - CONCLUSION: 1. Mild bibasilar opacity likely representing pleural effusions with associated volume loss and/or consolidation. 2. Severe atherosclerotic calcification of the aorta. Landon Marrero MD Upper Extremity Ultrasound 04/20/17 0000 Signed Impressions: Service Date/Time: Thursday, April 20, 2017 17:40 - CONCLUSION: No evidence of left upper extremity DVT. Landon Robbins MD Physical Exam HEENT: PERRL; normocephalic; atraumatic; no jaundice. poor dentition CHEST: CTA CARDIAC: RRR + murmur ABDOMEN: Soft, nondistended, nontender; no hepatosplenomegaly; bowel sounds are present in all four quadrants. EXTREMITIES: No clubbing, cyanosis, or edema. SKIN: Normal; no rash; no jaundice. ABRASIVE WORKER: No focal deficits; alert and oriented times three. (Jessica Weathers [facility]) Assessment and Plan Plan ASSESSMENT - melanotic stool - pt has had for couple weeks. today he denies this. poor historian. heme pos stool in ER. - anemia - hgb 8.9 on admission, macrocytic. likely multifactorial. mild drop hgb today. last EGD/colonoscopy 5y ago and normal per pt - pos c diff tox pcr - having dark tarry stool. on PO vanc - ESRD on HD- nephrology following - cervical stenosis - neurosurgery following - aortic stenosis - TAVR pending dental work PLAN - EGD and colonoscopy tomorrow - cardiology has cleared for endoscopy - obtain consent - clear liquids - GoLytely - NPO after midnight - continue PO vanc 10-14 days - monitor labs - transfuse as needed - supportive care - PPI - further recs to follow this pt seen by myself and Dr Peña and this note is written on his behalf (Jessica Weathers) Physician Comments Patient was seen and examined Agree with above Continue with current supportive care Monitor labs EGD colonoscopy Tomorrow (Jeremiah Peña MD) Jessica Weathers Apr 22, 2017 13:35 Jeremiah Peña MD Apr 22, 2017 23:47
[2017-04-22 16:00] VITALS: BP 130/75; PULSE 88; RESP 18; TEMP 97.5; O2SAT 99
[2017-04-22] MEDS ORDERED: PEG (High)/E-LYTE SOLN 4000 ML BTL PO ONE (16:00)
--- NOTE | 2017-04-22 17:08 | HHI.PR ---
Subjective Remarks Patient reports is doing okay. No bowel movements today. Denies lightheadedness. Objective Vitals Vital Signs Date Time Temp Pulse Resp B/P (MAP) Pulse Ox O2 Delivery O2 Flow Rate FiO2 04/22/17 12:00 97.5 84 18 122/59 (80) 99 04/22/17 08:00 97.7 73 17 141/66 (91) 99 04/22/17 08:00 66 04/22/17 04:00 97.9 73 17 122/58 (79) 99 04/22/17 00:00 97.7 74 18 118/59 (78) 99 04/21/17 20:00 98.0 82 19 141/61 (87) 100 I/O 04/21/17 04/21/17 04/21/17 04/22/17 04/22/17 04/22/17 07:00 15:00 23:00 07:00 15:00 23:00 Intake Total 440 ml 95 ml Output Total 1500 ml Balance -1060 ml 95 ml Intake Oral 240 ml IV Total 200 ml 95 ml Hemodialysis 1500 ml # Voids 0 0 # Bowel Movements 0 0 0 Result Diagram: 04/22/17 0655 04/22/17 0655 Objective Remarks GENERAL: Obese, elderly male. in no apparent distress. CARDIOVASCULAR: Normal rate and regular rhythm. There is a 4/6 SARAH murmur loudest over the right upper sternal border RESPIRATORY: Good respiratory efforts. Breath sounds equal and clear to auscultation bilaterally. GASTROINTESTINAL: Abdomen soft, non-tender, non-distended. Normal active bowel sounds MUSCULOSKELETAL: Extremities without cyanosis, or edema. NEURO: Alert & Oriented x4 to person, place, time, situation. Moves all ext x4 PSYCH: Appropriate mood and affect. A/P Assessment and Plan 76-year-old male with a medical history significant for severe aortic stenosis in need of TAVR, end-stage renal disease on hemodialysis, recent diagnosis of C. difficile colitis. The patient was recently discharged to correction facility for [facility], during dialysis, he had an acute episode of near syncope and hypotension. Workup in the emergency room revealed positive stool Hemoccult Near syncope, recurrent falls by history: Likely related to severe aortic stenosis and debility. Patient will need TAVR per previous field service specialist recommendations but needs dental work first. Continue rehabilitation efforts with PT. - Cardiology consulted. No further cardiac workup at this point. Acute on chronic anemia likely secondary to GI bleeding. Status post blood transfusion two units of PRBCs. - Stable. Continue to monitor H&H. - GI planning for endoscopy tomorrow. Severe Aortic Stenosis: Patient needs TAVR as above. Will need follow-up with cardiology once his dental issues has been taken care of. Poor dentition: Multiple decayed teeth. Patient advised to follow-up with a dentist outpatient [place]. ESRD on HD: T//Wed, who had Hypotension while on hemodialysis. No obvious signs of sepsis. -Nephrology following. Hemodialysis per nephrology. HTN: Controlled. Continue current medications GI bleed - GI following. Continue to monitor H&H. - On Protonix drip. - GI planning for EGD and colonoscopy tomorrow. C. difficile positive: -Continue vancomycin by mouth. Cervical stenosis: Previously seen by Neurosurgery. No surgical intervention planned. No new neurological findings. Continue to monitor. DVT Prophylaxis: Coral Leong MD Apr 22, 2017 17:08
[2017-04-22 20:00] VITALS: BP 144/67; PULSE 78; RESP 18; TEMP 97.7; O2SAT 99
[2017-04-23] VITALS: BP 138/66; PULSE 73; RESP 18; TEMP 97.3; O2SAT 99
[2017-04-23] MEDS: PANTOPRAZOLE 80 MG/100 ML NS IV SCH ×6 (03:12→23:00)
[2017-04-23 04:00] VITALS: BP 141/66; PULSE 73; RESP 18; TEMP 98.2; O2SAT 98
[2017-04-23] MEDS: SODIUM CHLOR 0.9% 1000 ML INJ 1,000 ML IV SCH (06:35)
[2017-04-23 08:00] VITALS: BP 132/62; PULSE 61; PULSE 72; RESP 16; TEMP 97.5; O2SAT 98
[2017-04-23 09:04] LABS: HEMOGLOBIN 8.4 GM/DL (13.0-17.0); MEAN CELL VOLUME 102.1 FL (80.0-100.0); MEAN CORPUSCULAR HEMOGLOBIN 34.5 PG (27.0-34.0); MEAN CORPUSCULAR HGB CONC 33.8 % (32.0-36.0); MEAN PLATELET VOLUME 9.7 FL (7.0-11.0); PLATELET COUNT 115 TH/MM3 (150-450); RED BLOOD COUNT 2.45 MIL/MM3 (4.50-5.90); RED CELL DISTRIBUTION WIDTH 16.4 % (11.6-17.2); WHITE BLOOD COUNT 3.9 TH/MM3 (4.0-11.0)
[2017-04-23 09:50] LABS: BICARBONATE 24.4 MEQ/L (21.0-32.0); CALCIUM 9.4 MG/DL (8.5-10.1); CREATININE 8.24 MG/DL (0.60-1.30)
[2017-04-23] MEDS: ALLOPURINOL 100 MG TAB PO SCH (09:55)
[2017-04-23] MEDS: VANCOMYCIN 500 MG VIAL (FOR ORAL USE ONLY) PO SCH ×4 (09:55→22:56)
[2017-04-23] MEDS: CINACALCET HYDROCHLORIDE 30 MG TAB PO SCH (09:55)
[2017-04-23] MEDS: SODIUM CHLORIDE 0.9% FLUSH 10 ML FLUSH IV FLUSH SCH ×2 (09:55→22:56)
[2017-04-23] MEDS ORDERED: MIDAZOLAM HCL 2 MG/2 ML VIAL ONE (11:42)
[2017-04-23] MEDS ORDERED: fentaNYL CITRATE 250 MCG/5 ML AMP ONE (11:42)
--- NOTE | 2017-04-23 11:52 | HHI.PR ---
Subjective Remarks Patient reports he is doing okay. Re-explained to the patient the plan of care. Will have endoscopy today. Objective Vitals Vital Signs Date Time Temp Pulse Resp B/P (MAP) Pulse Ox O2 Delivery O2 Flow Rate FiO2 04/23/17 08:00 61 04/23/17 08:00 97.5 72 16 132/62 (85) 98 04/23/17 04:00 98.2 73 18 141/66 (91) 98 04/23/17 00:00 97.3 73 18 138/66 (90) 99 04/22/17 20:00 78 04/22/17 20:00 97.7 78 18 144/67 (92) 99 04/22/17 16:00 97.5 88 18 130/75 (93) 99 04/22/17 12:00 97.5 84 18 122/59 (80) 99 I/O 04/22/17 04/22/17 04/22/17 04/23/17 04/23/17 04/23/17 07:00 15:00 23:00 07:00 15:00 23:00 Intake Total 95 ml 1100 ml Balance 95 ml 1100 ml IV Total 95 ml 1100 ml # Voids 0 2 # Bowel Movements 0 4 2 Result Diagram: 04/23/1782404/23/1725 Objective Remarks GENERAL: Obese, elderly male. in no apparent distress. CARDIOVASCULAR: Normal rate and regular rhythm. There is a 4/6 SARAH murmur loudest over the right upper sternal border RESPIRATORY: Good respiratory efforts. Breath sounds equal and clear to auscultation bilaterally. GASTROINTESTINAL: Abdomen soft, non-tender, non-distended. Normal active bowel sounds MUSCULOSKELETAL: Extremities without cyanosis, or edema. NEURO: Alert & Oriented x4 to person, place, time, situation. Moves all ext x4 PSYCH: Appropriate mood and affect. A/P Assessment and Plan 76-year-old male with a medical history significant for severe aortic stenosis in need of TAVR, end-stage renal disease on hemodialysis, recent diagnosis of C. difficile colitis. [facility], during dialysis, he had an acute episode of near syncope and hypotension. Workup in the emergency room revealed positive stool Hemoccult Near syncope, recurrent falls by history: Likely related to severe aortic stenosis and debility. Patient will need TAVR per previous icing mixer recommendations but needs dental work first. Continue rehabilitation efforts with PT. - Cardiology consulted. No further cardiac workup at this point. Acute on chronic anemia likely secondary to GI bleeding. Status post blood transfusion two units of PRBCs. - Stable. Continue to monitor H&H. -Endoscopy today per GI. Severe Aortic Stenosis: Patient needs TAVR as above. Will need follow-up with cardiology once his dental issues has been taken care of. Poor dentition: Multiple decayed teeth. Patient advised to follow-up with a dentist outpatient [facility]. ESRD on HD: T//Wed, who had Hypotension while on hemodialysis. No obvious signs of sepsis. -Nephrology following. Hemodialysis per nephrology. - IR consulted by nephrology to assess fistula. HTN: Controlled. Continue current medications GI bleed - GI following. Continue to monitor H&H. - On Protonix drip. - GI planning for EGD and colonoscopy today C. difficile positive: -Continue vancomycin by mouth. Cervical stenosis: Previously seen by Neurosurgery. No surgical intervention planned. No new neurological findings. Continue to monitor. DVT Prophylaxis: SCDs Discharge Planning Probable discharge back to SNF in 1-2 days pending workup above. Coral Caceres MD Apr 23, 2017 11:52
--- NOTE | 2017-04-23 13:00 | PD.RAD ---
Post Procedure Progress Note Pre Procedure Diagnosis: (1) Left upper extremity swelling (2) End stage renal disease on dialysis Post Procedure Diagnosis: (1) Left upper extremity swelling (2) ESRD (end stage renal disease) on dialysis Procedure Date: Apr 23, 2017 Supervising Radiologist: Pacheco Mahajan Estimated blood loss: None Anesthesia: Local, Conscious Sedation Plan of Activity Patient to Unit: ROPU Patient Condition: Poor Additional Comments: Left arm A/V fistula evaluated due to upper extremity swelling. Excellent flow through the fistula. The out flow is widely patent. Full dictated report to follow See PACS Report for procedural detail/treatment Pacheco Mahajan MD Apr 23, 2017 13:00
[2017-04-23 13:05] VITALS: BP 165/79; PULSE 74; RESP 20; TEMP 98; O2SAT 97
[2017-04-23] MEDS ORDERED: IODIXANOL 320 MG/ML 100 ML VIAL (for Cath Lab) IVCONTRAST ONE (13:08)
[2017-04-23 13:20] VITALS: BP 153/70; PULSE 67; RESP 20; O2SAT 94
--- NOTE | 2017-04-23 13:23 | HHI.NPPN ---
Subjective General Problems: Anemia, Edema, Hypertension Renal Failure: End Stage Renal Disease History of Present Illness Patient is a very pleasant 76 y/o male with ESRD on hemodialysis on T, Th and Sat, who during hemodialysis he had a syncopl episode and was hypotnesive with SBP in the 70's. He has had recent admission due to fluid overload and found also C Diff positive was reported a melenic stool by EMS HGB at 8.9. Hemocult stool positive. Potassium is elevated at 5.5 at ER. Additional Remarks Patient is alert, no SOB, seen after the procedure. Review of Systems General General Remarks Resting comfortably Respiratory Respiratory Remarks Denies SOB Cardiovascular Cardiac: Edema Cardiac Remarks Denies CP, Edema noted in left upper extremity Gastrointestinal GI Remarks Denies abdominal pain Genitourinary Remarks Denies Dysuria Objective Data Data 04/23/17 04/24/17 19:00 07:00 # Voids 2 # Bowel Movements 2 Vital Signs Date Time Temp Pulse Resp B/P (MAP) Pulse Ox O2 Delivery O2 Flow Rate FiO2 04/23/17 08:00 61 04/23/17 08:00 97.5 72 16 132/62 (85) 98 04/23/17 04:00 98.2 73 18 141/66 (91) 98 04/23/17 00:00 97.3 73 18 138/66 (90) 99 04/22/17 20:00 78 04/22/17 20:00 97.7 78 18 144/67 (92) 99 04/22/17 16:00 97.5 88 18 130/75 (93) 99 -: 04/23/17 0825 04/23/17 0825 Physical Exam General Appearance: Well Nourished, No Acute Distress, Comfortable Eyes Eye Exam: Pupils Equal Throat Throat Exam: Oral Mucosa [place] & Moist Neck Neck Exam: Neck Supple Pulmonary Resp Exam: Breath Sounds Equal, No Distress Cardiology CV Exam: Normal Sinus Rhythm, Murmur Gastrointestinal/Abdomen GI Exam: Soft, Non-Tender Genitourinary Exam: Flank Non-Tender Integumentary Skin Exam: Clear, Warm Extremeties Extremities Exam: Moderate Edema Neurologic Neuro Exam: Alert, Awake, Oriented, Speech Clear Psychiatric Psych Exam: Appropriate Responses PUD Prophylasis PUD Prophylaxis: Protonix Assessment/Plan Discussed Condition With: Patient Assessment Summary: End Stage Renal Disease Problem List: (1) ESRD (end stage renal disease) on dialysis ICD Codes: N18.6 - End stage renal disease; Z99.2 - Dependence on renal dialysis Plan: Left arm elevated and edema is improving. U/S showing no DVT, Fistulogram done, will follow the result. HD will be in AM. (2) Hypotension ICD Codes: I95.9 - Hypotension, unspecified Status: Acute Plan: Resolved blood pressure stable at 122/58 (3) Anemia ICD Codes: D64.9 - Anemia Status: Acute Plan: HGB 8.1 this morning from 9.9 yesterday Epogen 10,000 units after each dialysis (4) C. difficile diarrhea ICD Codes: A04.72 - Enterocolitis due to Clostridium difficile, not specified as recurrent Status: Acute Plan: On vancomycin orally (5) GI bleed ICD Codes: K92.2 - Gastrointestinal hemorrhage, unspecified Status: Acute Plan: Stool positive for occult blood Protonix gtt GI managing Plan for possible EGD and colonoscopy with cardiac clearance Problem Qualifiers (1) Hypotension: Qualified Codes: I95.9 - Hypotension, unspecified (2) GI bleed: Qualified Codes: K92.2 - Gastrointestinal hemorrhage, unspecified Quiana Mayers MD Apr 23, 2017 13:23
--- NOTE | 2017-04-23 13:28 | RADRPT ---
EXAM DATE/TIME: 04/23/2017 12:00 [facility] COMPARISON: US GUIDED VASCULAR ACCESS, LEFT, April 23, 2017, 0:00. INDICATIONS : Patient with left arm swelling in need of fistulagram. MEDICAL HISTORY : Hypertension Diet controlled DM II Hypelipidemia ESRD on HD T//Wed SURGICAL HISTORY : AV Fistula Pilonidal Cyst ENCOUNTER: Initial ACUITY: 3 days PAIN SCORE: 0/10 FLUORO TIME: 2.0 minutes IMAGE SERIES: 5 SEDATION TIME: 30 minutes CONTRAST: 40 cc Visipaque (iodixanol) MEDICATION(S): 1.) 1.5 mg midazolam (Versed) IV 2.) 150 mcg fentanyl (Sublimaze) IV PROCEDURE : 1. Fistulagram. The risks, benefits and alternatives to the procedure were explained and verbal and written consent w as obtained. The site was prepped in sterile fashion. Full sterile technique was used, including ca p, mask, sterile gloves and gown and a large sterile sheet. Hand hygiene and 2% chlorhexidine and/or betadine/alcohol prep was utilized per protocol for cutaneous antisepsis. The skin and subcutaneous tissues were infiltrated with local anesthetic solution. The outflow vein from the patient's AV fistula in the left wrist was accessed using the micropuncture technique. The 4 Bulgarian dilator was left in place. Evaluation of the arterial anastomosis, the venou s outflow and the central venous system was performed. Results: The arterial venous anastomosis is widely patent. 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 The venous outflow is predominantly via the cephalic vein however, there is cross filling of the basilic vein as well at the level of the antecubital fossa. The venous outflow in the left R. is widely patent. The axillary vein and subclavian vein are widely patent. The SVC is widely patent. CONCLUSION: The patient's arteriovenous fistula, venous outflow and central venous structures are widely patent. There is brisk flow through this the swelling in the upper extremity may be related t o the high flow through the fistula. Pacheco Mahajan MD on April 23, 2017 at 13:23 Board Certified Radiologist. This report was verified electronically.
[2017-04-23] MEDS: ALBUMIN 25% INJ 100 ML IV PRN (14:21)
[2017-04-23] MEDS: EPOETIN ALFA 10,000 UNITS/ML VIAL IV PUSH PRN (16:23)
[2017-04-23] MEDS: GELATIN 12 MM/7 MM FOAM TOP PRN (16:23)
[2017-04-23 20:00] VITALS: BP 135/62; PULSE 95; PULSE 96; RESP 18; TEMP 97.5; O2SAT 94
[2017-04-24] VITALS (10 sets, daily range): BP systolic 131–141; BP diastolic 60–73; PULSE 73–97; RESP 18–20; TEMP 96.3–98.4; O2SAT 90–95
[2017-04-24] MEDS: PANTOPRAZOLE 80 MG/100 ML NS IV SCH ×4 (08:31→17:28)
[2017-04-24] MEDS: SODIUM CHLORIDE 0.9% FLUSH 10 ML FLUSH IV FLUSH SCH ×2 (08:32→21:00)
[2017-04-24] MEDS: VANCOMYCIN 500 MG VIAL (FOR ORAL USE ONLY) PO SCH ×4 (08:32→22:21)
[2017-04-24] MEDS: CINACALCET HYDROCHLORIDE 30 MG TAB PO SCH (08:32)
[2017-04-24] MEDS: ALLOPURINOL 100 MG TAB PO SCH (08:32)
[2017-04-24] MEDS ORDERED: DEXAMETHASONE SOD PHOS 4 MG/ML VIAL IV ONE (12:00)
[2017-04-24] MEDS ORDERED: LIDOCAINE HCL 1% PF 5 ML SYRINGE OTHER ONE (12:00)
[2017-04-24] MEDS ORDERED: PROPOFOL 200 MG/20 ML AMP IV ONE (12:00)
--- NOTE | 2017-04-24 13:30 | PD.PROCEDR ---
GI Procedure PROCEDURE PERFORMED EGD with biopsy followed by colonoscopy with snare polypectomy INDICATION FOR PROCEDURE Anemia, melena PROCEDURE: The procedure, risks and benefits were discussed with Mr. Young and informed consent was obtained. Anesthesia sedated him with Diprivan. He was placed in the left lateral decubitus position. EGD: The Pentax videoscope was introduced through the oropharynx and advanced to the second portion of the duodenum under direct visualization. Retroflexion was performed in the stomach. FINDINGS: The esophagus this appeared to be unremarkable and within normal limits The stomach the gastric mucosa appeared to be diffusely edematous with some patchy erythema of unclear significance biopsies were taken from the antrum and from the gastric body otherwise no blood or bleeding no ulcers or erosions and no varices The duodenum the mucosa appeared to be somewhat edematous and erythematous maybe even a suggestion of celiac biopsies were taken further evaluation Colonoscopy: The Pentax videoscope was introduced through the rectum and advanced to cecum where the ileocecal valve and appendiceal orifice were identified. Retroflexion was performed in the rectum. Colonic prep was fair to good FINDINGS: Colonic withdrawal time greater than 6 minutes as the scope was slowly withdrawn clonic mucosa was carefully inspected this was noted to be unremarkable and within normal limits hallway through except for an ascending colon; pedunculated polyp this was excised using hot snare technique and it was retrieved for further evaluation also noted were mild diffuse diverticulosis retroflexion in the rectum was unremarkable so as rectal examination ESTIMATED BLOOD LOSS: None SPECIMENS REMOVED: Gastric, duodenal, colon biopsies COMPLICATIONS: None IMPRESSION: Pangastritis Duodenitis Colon polyp Diverticulosis PLAN: Await biopsies Continue with current supportive care, monitor labs and transfuse as needed Consider small bowel follow-through and/or capsule endoscopy if anemia persists Recommend PPI Colonoscopy in 5 years Jeremiah Peña MD Apr 24, 2017 13:30
[2017-04-24] MEDS: SODIUM CHLOR 0.9% 1000 ML INJ 1,000 ML IV SCH ×2 (14:19→17:29)
--- NOTE | 2017-04-24 14:24 | HHI.PR ---
Subjective Remarks Patient seen around 9 AM. EGD/Colonoscopy canceled yesterday. Will have procedure today. He has no complaints. Objective Vitals Vital Signs Date Time Temp Pulse Resp B/P (MAP) Pulse Ox O2 Delivery O2 Flow Rate FiO2 04/24/17 13:40 84 16 121/58 (79) 99 04/24/17 13:38 79 04/24/17 13:30 84 16 119/60 (79) 96 04/24/17 13:20 97.8 83 16 123/60 (81) 98 04/24/17 12:07 96.3 88 20 141/73 (95) 93 04/24/17 10:53 92 21 04/24/17 08:19 97.6 87 20 136/62 (86) 90 04/24/17 08:15 73 04/24/17 04:00 97.8 97 18 135/64 (87) 92 04/24/17 00:00 90 04/24/17 00:00 97.8 92 18 132/64 (86) 95 04/23/17 20:00 97.5 96 18 135/62 (86) 94 04/23/17 20:00 95 I/O 04/23/17 04/23/17 04/23/17 04/24/17 04/24/17 04/24/17 07:00 15:00 23:00 07:00 15:00 23:00 Intake Total 1100 ml 100 ml 871 ml 150 ml Output Total 1500 ml Balance 1100 ml 100 ml -629 ml 150 ml IV Total 1100 ml 100 ml 871 ml 50 ml Other 100 ml Hemodialysis 1500 ml # Voids 2 2 # Bowel Movements 2 1 Result Diagram: 04/23/17 0825 04/23/17 0825 Objective Remarks GENERAL: Obese, elderly male. in no apparent distress. CARDIOVASCULAR: Normal rate and regular rhythm. There is a 4/6 SARAH murmur loudest over the right upper sternal border RESPIRATORY: Good respiratory efforts. Breath sounds equal and clear to auscultation bilaterally. GASTROINTESTINAL: Abdomen soft, non-tender, non-distended. Normal active bowel sounds MUSCULOSKELETAL: Extremities without cyanosis, or edema. NEURO: Alert & Oriented x4 to person, place, time, situation. Moves all ext x4 PSYCH: Appropriate mood and affect. A/P Assessment and Plan 76-year-old male with a medical history significant for severe aortic stenosis in need of TAVR, end-stage renal disease on hemodialysis, recent diagnosis of C. difficile colitis. The patient was recently discharged to long-term facility for rehabilitation, during dialysis, he had an acute episode of near syncope and hypotension. Workup in the emergency room revealed positive stool Hemoccult Near syncope, recurrent falls by history: Likely related to severe aortic stenosis and debility. Patient will need TAVR per previous bleacher sulfite pulp recommendations but needs dental work first. Continue rehabilitation efforts with PT. - Cardiology consulted. No further cardiac workup at this point. Acute on chronic anemia likely secondary to GI bleeding. Status post blood transfusion two units of PRBCs. - Stable. Continue to monitor H&H. - Endoscopy to be done today Per GI. This was canceled yesterday. Severe Aortic Stenosis: Patient needs TAVR as above. Will need follow-up with cardiology once his dental issues has been taken care of. Poor dentition: Multiple decayed teeth. Patient advised to follow-up with a dentist outpatient [facility]. ESRD on HD: T//Wed, who had Hypotension while on hemodialysis. No obvious signs of sepsis. -Nephrology following. Hemodialysis per nephrology. - IR consulted by nephrology to assess fistula. HTN: Controlled. Continue current medications GI bleed - GI following. Continue to monitor H&H. - On Protonix drip. - GI planning for EGD and colonoscopy today C. difficile positive: -Continue vancomycin by mouth. Cervical stenosis: Previously seen by Neurosurgery. No surgical intervention planned. No new neurological findings. Continue to monitor. DVT Prophylaxis: SCDs Discharge Planning Probable discharge back to SNF tomorrow pending EGD/Colonoscopy findings above. Coral Caceres MD Apr 24, 2017 14:24
--- NOTE | 2017-04-24 17:00 | HHI.NPPN ---
Subjective General Problems: Anemia, Edema, Hypertension Renal Failure: End Stage Renal Disease History of Present Illness Patient is a very pleasant 76 y/o male with ESRD on hemodialysis on T, Th and Sat, who during hemodialysis he had a syncopl episode and was hypotnesive with SBP in the 70's. He has had recent admission due to fluid overload and found also C Diff positive was reported a melenic stool by EMS HGB at 8.9. Hemocult stool positive. Potassium is elevated at 5.5 at ER. Additional Remarks Patient is alert, no SOB, seen in AM, before the colonoscopy. Review of Systems General General Remarks Resting comfortably Respiratory Respiratory Remarks Denies SOB Cardiovascular Cardiac: Edema Cardiac Remarks Denies CP, Edema noted in left upper extremity Gastrointestinal GI Remarks Denies abdominal pain Genitourinary Remarks Denies Dysuria Objective Data Data 04/24/17 04/25/17 19:00 07:00 Intake Total 150 ml Balance 150 ml IV Total 50 ml Other 100 ml # Voids 2 # Bowel Movements 1 Vital Signs Date Time Temp Pulse Resp B/P (MAP) Pulse Ox O2 Delivery O2 Flow Rate FiO2 04/24/17 13:40 84 16 121/58 (79) 99 04/24/17 13:38 79 04/24/17 13:30 84 16 119/60 (79) 96 04/24/17 13:20 97.8 83 16 123/60 (81) 98 04/24/17 12:07 96.3 88 20 141/73 (95) 93 04/24/17 10:53 92 21 04/24/17 08:19 97.6 87 20 136/62 (86) 90 04/24/17 08:15 73 04/24/17 04:00 97.8 97 18 135/64 (87) 92 04/24/17 00:00 90 04/24/17 00:00 97.8 92 18 132/64 (86) 95 04/23/17 20:00 97.5 96 18 135/62 (86) 94 04/23/17 20:00 95 -: 04/23/17 0825 04/23/17 0825 Physical Exam General Appearance: Well Nourished, No Acute Distress, Comfortable Eyes Eye Exam: Pupils Equal Throat Throat Exam: Oral Mucosa [place] & Moist Neck Neck Exam: Neck Supple Pulmonary Resp Exam: Breath Sounds Equal, No Distress Cardiology CV Exam: Normal Sinus Rhythm, Murmur Gastrointestinal/Abdomen GI Exam: Soft, Non-Tender Genitourinary Exam: Flank Non-Tender Integumentary Skin Exam: Clear, Warm Extremeties Extremities Exam: Moderate Edema Neurologic Neuro Exam: Alert, Awake, Oriented, Speech Clear Psychiatric Psych Exam: Appropriate Responses PUD Prophylasis PUD Prophylaxis: Protonix Assessment/Plan Discussed Condition With: Patient Assessment Summary: End Stage Renal Disease Problem List: (1) ESRD (end stage renal disease) on dialysis ICD Codes: N18.6 - End stage renal disease; Z99.2 - Dependence on renal dialysis Plan: Left arm elevated and edema is improving. U/S showing no DVT, Fistulogram done, results noted. Patient has HD done yesterday. His days are changed , will try to put back on TTS next week. (2) Hypotension ICD Codes: I95.9 - Hypotension, unspecified Status: Acute Plan: Resolved blood pressure stable at 122/58 (3) Anemia ICD Codes: D64.9 - Anemia Status: Acute Plan: HGB 8.1 this morning from 9.9 yesterday Epogen 10,000 units after each dialysis (4) C. difficile diarrhea ICD Codes: A04.72 - Enterocolitis due to Clostridium difficile, not specified as recurrent Status: Acute Plan: On vancomycin orally (5) GI bleed ICD Codes: K92.2 - Gastrointestinal hemorrhage, unspecified Status: Acute Plan: Stool positive for occult blood Protonix gtt GI managing Plan for possible EGD and colonoscopy with cardiac clearance Problem Qualifiers (1) Hypotension: Qualified Codes: I95.9 - Hypotension, unspecified (2) GI bleed: Qualified Codes: K92.2 - Gastrointestinal hemorrhage, unspecified Quiana Mayers MD Apr 24, 2017 17:00
[2017-04-25] VITALS (16 sets, daily range): BP systolic 92–116; BP diastolic 63–76; PULSE 105–128; RESP 16–20; TEMP 96.5–98.4; O2SAT 92–97
[2017-04-25] MEDS: PANTOPRAZOLE 80 MG/100 ML NS IV SCH ×8 (02:20→17:20)
[2017-04-25] MEDS ORDERED: METOPROLOL TARTRATE 25 MG TAB PO ONE ×2 (03:00→12:00)
[2017-04-25 07:24] LABS: HEMATOCRIT 28.9 % (39.0-51.0); HEMOGLOBIN 9.7 GM/DL (13.0-17.0); MEAN CELL VOLUME 101.7 FL (80.0-100.0); MEAN CORPUSCULAR HEMOGLOBIN 34.1 PG (27.0-34.0); MEAN CORPUSCULAR HGB CONC 33.5 % (32.0-36.0); MEAN PLATELET VOLUME 9.6 FL (7.0-11.0); PLATELET COUNT 146 TH/MM3 (150-450); RED BLOOD COUNT 2.84 MIL/MM3 (4.50-5.90); RED CELL DISTRIBUTION WIDTH 16.8 % (11.6-17.2); WHITE BLOOD COUNT 9.9 TH/MM3 (4.0-11.0)
[2017-04-25] MEDS: ALLOPURINOL 100 MG TAB PO SCH (08:30)
[2017-04-25] MEDS: CINACALCET HYDROCHLORIDE 30 MG TAB PO SCH (08:30)
[2017-04-25] MEDS: SODIUM CHLORIDE 0.9% FLUSH 10 ML FLUSH IV FLUSH SCH ×2 (08:30→21:00)
[2017-04-25] MEDS: VANCOMYCIN 500 MG VIAL (FOR ORAL USE ONLY) PO SCH ×4 (08:30→21:01)
--- NOTE | 2017-04-25 11:48 | HHI.PR ---
Subjective Remarks Patient went into afib with RVR overnight. He was given a dose of Metoprolol. Rate still uncontrolled this morning. Per review of home meds. Coreg held on admission. Objective Vitals Vital Signs Date Time Temp Pulse Resp B/P (MAP) Pulse Ox O2 Delivery O2 Flow Rate FiO2 04/25/17 08:11 97.5 119 17 92/63 (73) 92 04/25/17 04:55 97.3 114 17 92/63 (73) 93 04/25/17 04:47 105 04/25/17 03:00 92 21 04/25/17 02:25 128 20 102/76 (85) 04/25/17 00:41 98.4 114 17 109/70 (83) 94 04/25/17 00:07 126 04/24/17 20:10 98.4 93 18 131/60 (83) 94 04/24/17 20:03 96 04/24/17 18:05 83 04/24/17 13:40 84 16 121/58 (79) 99 04/24/17 13:38 79 04/24/17 13:30 84 16 119/60 (79) 96 04/24/17 13:20 97.8 83 16 123/60 (81) 98 04/24/17 12:07 96.3 88 20 141/73 (95) 93 I/O 04/24/17 04/24/17 04/24/17 04/25/17 04/25/17 04/25/17 07:00 15:00 23:00 07:00 15:00 23:00 Intake Total 150 ml 1274 ml Balance 150 ml 1274 ml IV Total 50 ml 1274 ml Other 100 ml # Voids 2 2 # Bowel Movements 1 1 Result Diagram: 04/25/17 0643 04/23/17 0825 Objective Remarks GENERAL: Obese, elderly male. in no apparent distress. CARDIOVASCULAR: Rate around 110. Irregular rhythm. There is a 4/6 SARAH murmur loudest over the right upper sternal border RESPIRATORY: Good respiratory efforts. Breath sounds equal and clear to auscultation bilaterally. GASTROINTESTINAL: Abdomen soft, non-tender, non-distended. Normal active bowel sounds MUSCULOSKELETAL: Extremities without cyanosis, or edema. NEURO: Alert & Oriented x4 to person, place, time, situation. Moves all ext x4 PSYCH: Appropriate mood and affect. A/P Assessment and Plan 76-year-old male with a medical history significant for severe aortic stenosis in need of TAVR, end-stage renal disease on hemodialysis, recent diagnosis of C. difficile colitis. The patient was recently discharged to intermediate facility for rehabilitation, during dialysis, he had an acute episode of near syncope and hypotension. Workup in the emergency room revealed positive stool Hemoccult. Afib with RVR overnight 04/25/17: Patient denies history of afib. BP on the lower side. - Start Metoprolol. Reconsult Cardiology - Will defer to Cardiology and GI regarding anticoagulation. Near syncope, recurrent falls by history: Likely related to severe aortic stenosis and debility. Patient will need TAVR per previous assistant professor of communication recommendations but needs dental work first. Continue rehabilitation efforts with PT. - Previously seen by Cardiology. Reconsulted. Acute on chronic anemia likely secondary to GI bleeding. Status post blood transfusion two units of PRBCs. - Status post EGD/colonoscopy which revealed Pangastritis, Duodenitis, Colon polyp, Diverticulosis - GI recommends PPI. Further workup with pill endoscopy may be entertained if anemia persisting. -H&H stable. DC Protonix drip. Transition to oral PPI. Severe Aortic Stenosis: Patient needs TAVR as above. Will need follow-up with cardiology once his dental issues has been taken care of. Poor dentition: Multiple decayed teeth. Patient advised to follow-up with a dentist outpatient [facility]. ESRD on HD: T//Wed, who had Hypotension while on hemodialysis. No obvious signs of sepsis. -Nephrology following. Hemodialysis per nephrology. -Fistula evaluated by IR. No issues. HTN: Controlled. Continue current medications C. difficile positive: -Continue vancomycin by mouth. Cervical stenosis: Previously seen by Neurosurgery. No surgical intervention planned. No new neurological findings. Continue to monitor. DVT Prophylaxis: SCDs Discharge Planning Probable discharge back to SNF when stable Coral Caceres MD Apr 25, 2017 11:48
[2017-04-25] MEDS ORDERED: CARVEDILOL 12.5 MG TAB PO SCH (12:00)
--- NOTE | 2017-04-25 12:28 | HHI.NPPN ---
Subjective General Problems: Anemia, Edema, Hypertension Renal Failure: End Stage Renal Disease History of Present Illness Patient is a very pleasant 76 y/o male with ESRD on hemodialysis on T, Th and Sat, who during hemodialysis he had a syncopl episode and was hypotnesive with SBP in the 70's. He has had recent admission due to fluid overload and found also C Diff positive was reported a melenic stool by EMS HGB at 8.9. Hemocult stool positive. Potassium is elevated at 5.5 at ER. Additional Remarks Patient is alert, no SOB, feeling better, has Tachycardia overnight and the BP is on lower side. Review of Systems General General Remarks Resting comfortably Respiratory Respiratory Remarks Denies SOB Cardiovascular Cardiac: Edema Cardiac Remarks Denies CP, Edema noted in left upper extremity Gastrointestinal GI Remarks Denies abdominal pain Genitourinary Remarks Denies Dysuria Objective Data Data Vital Signs Date Time Temp Pulse Resp B/P (MAP) Pulse Ox O2 Delivery O2 Flow Rate FiO2 04/25/17 08:11 97.5 119 17 92/63 (73) 92 04/25/17 04:55 97.3 114 17 92/63 (73) 93 04/25/17 04:47 105 04/25/17 03:00 92 21 04/25/17 02:25 128 20 102/76 (85) 04/25/17 00:41 98.4 114 17 109/70 (83) 94 04/25/17 00:07 126 04/24/17 20:10 98.4 93 18 131/60 (83) 94 04/24/17 20:03 96 04/24/17 18:05 83 04/24/17 13:40 84 16 121/58 (79) 99 04/24/17 13:38 79 04/24/17 13:30 84 16 119/60 (79) 96 04/24/17 13:20 97.8 83 16 123/60 (81) 98 -: 04/25/17 0643 04/23/17 0825 Physical Exam General Appearance: Well Nourished, No Acute Distress, Comfortable Eyes Eye Exam: Pupils Equal Throat Throat Exam: Oral Mucosa [place] & Moist Neck Neck Exam: Neck Supple Pulmonary Resp Exam: Breath Sounds Equal, No Distress Cardiology CV Exam: Normal Sinus Rhythm, Murmur Gastrointestinal/Abdomen GI Exam: Soft, Non-Tender Genitourinary Exam: Flank Non-Tender Integumentary Skin Exam: Clear, Warm Extremeties Extremities Exam: Moderate Edema Neurologic Neuro Exam: Alert, Awake, Oriented, Speech Clear Psychiatric Psych Exam: Appropriate Responses PUD Prophylasis PUD Prophylaxis: Protonix Assessment/Plan Discussed Condition With: Patient Assessment Summary: End Stage Renal Disease Problem List: (1) ESRD (end stage renal disease) on dialysis ICD Codes: N18.6 - End stage renal disease; Z99.2 - Dependence on renal dialysis Plan: Left arm elevated and edema is improving. U/S showing no DVT, Fistulogram done, results noted. Patient has HD done Wednesday. His days are changed , will try to put back on TTS next week. Endoscopy results noted. Hgb. is stable. HR increased, now on Metoprolol. (2) Hypotension ICD Codes: I95.9 - Hypotension, unspecified Status: Acute Plan: Resolved blood pressure stable at 122/58 (3) Anemia ICD Codes: D64.9 - Anemia Status: Acute Plan: HGB 8.1 this morning from 9.9 yesterday Epogen 10,000 units after each dialysis (4) C. difficile diarrhea ICD Codes: A04.72 - Enterocolitis due to Clostridium difficile, not specified as recurrent Status: Acute Plan: On vancomycin orally (5) GI bleed ICD Codes: K92.2 - Gastrointestinal hemorrhage, unspecified Status: Acute Plan: Stool positive for occult blood Protonix gtt GI managing Plan for possible EGD and colonoscopy with cardiac clearance Problem Qualifiers (1) Hypotension: Qualified Codes: I95.9 - Hypotension, unspecified (2) GI bleed: Qualified Codes: K92.2 - Gastrointestinal hemorrhage, unspecified Quiana Mayers MD Apr 25, 2017 12:28
--- NOTE | 2017-04-25 13:19 | EKG ---
Date Performed: 04/25/2017 Time Performed: 02:46:38 PTAGE: 76 years EKG: Atrial fibrillation with rapid ventricular response Possible left anterior fascicular block Left ventricular hypertrophy Lateral ST-T changes may be due to hypertrophy and/or ischemia Compared to previous tracing, atrial fibrillation with rapid ventricular response has replaced Sinus rhythm . Lateral ST changes are new, consider ischemia. Abnormal ECG PREVIOUS TRACING : 03/25/2017 18.47.37 DOCTOR: Simone Ludwig Interpretating Date/Time 04/25/2017 13:19:25
[2017-04-25 13:48] LABS: BICARBONATE 24.7 MEQ/L (21.0-32.0); CALCIUM 9.2 MG/DL (8.5-10.1); CREATININE 7.47 MG/DL (0.60-1.30)
[2017-04-25] MEDS: SODIUM CHLOR 0.9% 1000 ML INJ 1,000 ML IV SCH ×2 (14:08→17:20)
--- NOTE | 2017-04-25 15:52 | PD.CARD.PN ---
Subjective Subjective Remarks Asked to see pt as he went into afib, mild RVR, pt w/o any sx. Objective Medications Current Medications Medications (Trade) Dose Ordered Sig/Jamal Route Start Time Stop Time Status Last Admin Pantoprazole Sodium 80 mg/ Sodium Chloride 100 ml @ 10 mls/hr Q10H IV 04/20/17 15:00 04/25/17 08:31 Sodium Chloride 1,000 ml @ 42 mls/hr [id number] IV 04/20/17 15:03 04/24/17 17:29 (NS Flush) 2 ml UNSCH PRN IV FLUSH 04/20/17 15:15 (NS Flush) 2 ml BID IV FLUSH 04/20/17 21:00 04/24/17 08:32 (Tylenol) 650 mg Q4H PRN PO 04/20/17 15:15 (Zofran Inj) 4 mg Q6H PRN IVP 04/20/17 15:15 (Narcan Inj) 0.4 mg UNSCH PRN IV PUSH 04/20/17 15:15 (Senokot) 17.2 mg Q12H PRN PO 04/20/17 15:15 (Dulcolax Supp) 10 mg DAILY PRN RECTAL 04/20/17 15:15 (Lactulose Liq) 30 ml DAILY PRN PO 04/20/17 15:15 (Zyloprim) 100 mg DAILY PO 04/21/17 09:00 04/25/17 08:30 (Sensipar) 30 mg DAILY PO 04/21/17 09:00 04/25/17 08:30 Sodium Chloride 1,000 ml @ 0 mls/hr Q0M PRN OTHER 04/20/17 19:26 (Heparin Inj) 8,000 units UNSCH PRN IV FLUSH 04/20/17 19:30 Sodium Chloride 1,000 ml @ 200 mls/hr Q5H PRN IV 04/20/17 19:26 Sodium Chloride 1,000 ml @ 0 mls/hr Q0M PRN OTHER 04/20/17 19:26 (Mannitol Inj) 12.5 gm UNSCH PRN IV 04/20/17 19:30 Albumin Human 100 ml @ 60 mls/hr UNSCH PRN IV 04/20/17 19:30 04/23/17 14:21 (NS Flush) 5 ml UNSCH PRN IV FLUSH 04/20/17 19:30 (Heparin Inj) UNSCH PRN .XX 04/20/17 19:30 (Gentamicin (Dialysis) Inj) 20 mg UNSCH PRN OTHER 04/20/17 19:30 (Zofran Inj) 4 mg UNSCH PRN IV PUSH 04/20/17 19:30 (Tylenol) 650 mg UNSCH PRN PO 04/20/17 19:30 (Benadryl) 25 mg UNSCH PRN PO 04/20/17 19:30 (Nitrostat Sl) 0.4 mg UNSCH PRN SL 04/20/17 19:30 (Catapres) 0.1 mg UNSCH PRN PO 04/20/17 19:30 (Epogen Inj) 10,000 units UNSCH PRN IV PUSH 04/20/17 19:30 04/23/17 16:23 (Gelfoam 12 Mm/7 Mm Top) 1 foam UNSCH PRN TOP 04/20/17 19:30 04/23/17 16:23 (VANCOMYCIN for oral use only) 125 mg QID PO 04/21/17 18:00 04/25/17 12:19 (Lopressor) 25 mg Q12HR PO 04/25/17 21:00 Vital Signs / I&O Vital Signs Date Time Temp Pulse Resp B/P (MAP) Pulse Ox O2 Delivery O2 Flow Rate FiO2 04/25/17 12:40 97.1 115 16 116/72 (87) 94 04/25/17 12:30 117 04/25/17 08:30 107 04/25/17 08:11 97.5 119 17 92/63 (73) 92 04/25/17 04:55 97.3 114 17 92/63 (73) 93 04/25/17 04:47 105 04/25/17 03:00 92 21 04/25/17 02:25 128 20 102/76 (85) 04/25/17 00:41 98.4 114 17 109/70 (83) 94 04/25/17 00:07 126 04/24/17 20:10 98.4 93 18 131/60 (83) 94 04/24/17 20:03 96 04/24/17 18:05 83 I/O 1/20/18 1/2004/24/17 04/25/17 04/25/17 04/25/17 07:00 15:00 23:00 07:00 15:00 23:00 Intake Total 150 ml 1274 ml Balance 150 ml 1274 ml IV Total 50 ml 1274 ml Other 100 ml # Voids 2 2 1 # Bowel Movements 1 1 Physical Exam GENERAL: This is a well-nourished, well-developed patient, in no apparent distress. CARDIOVASCULAR: Slightly rapid rate and irregular rhythm 3/6 SARAH RESPIRATORY: Clear to auscultation. Breath sounds equal bilaterally. No wheezes , rales, or rhonchi. GASTROINTESTINAL: Abdomen soft, non-tender, nondistended. Normal, active bowel sounds MUSCULOSKELETAL: Extremities without clubbing, cyanosis, or edema. NEURO: Alert & Oriented x4 to person, place, time, situation. Moves all ext x4 Laboratory Laboratory Tests Test 04/25/17 06:43 04/25/17 12:53 White Blood Count 9.9 TH/MM3 Red Blood Count 2.84 MIL/MM3 Hemoglobin 9.7 GM/DL Hematocrit 28.9 % Mean Corpuscular Volume 101.7 FL Mean Corpuscular Hemoglobin 34.1 PG Mean Corpuscular Hemoglobin Concent 33.5 % Red Cell Distribution Width 16.8 % Platelet Count 146 TH/MM3 Mean Platelet Volume 9.6 FL Blood Urea Nitrogen 44 MG/DL Creatinine 7.47 MG/DL Random Glucose 144 MG/DL Calcium Level 9.2 MG/DL Sodium Level 138 MEQ/L Potassium Level 4.1 MEQ/L Chloride Level 102 MEQ/L Carbon Dioxide Level 24.7 MEQ/L Anion Gap 11 MEQ/L Estimat Glomerular Filtration Rate 7 ML/MIN Imaging Last Impressions Fistulagram 04/23/17 0000 Signed Impressions: Service Date/Time: Sunday, April 23, 2017 12:00 - CONCLUSION: The patient's arteriovenous fistula, venous outflow and central venous structures are widely patent. There is brisk flow through this the swelling in the upper extremity may be related to the high flow through the fistula. Pacheco Mahajan MD Head CT 04/20/17 1206 Signed Impressions: Service Date/Time: Thursday, April 20, 2017 13:56 - CONCLUSION: Normal examination for a patient of this age. Farhan Kasper MD Chest X-Ray 04/20/17 120 Signed Impressions: Service Date/Time: Thursday, April 20, 2017 13:05 - CONCLUSION: 1. Mild bibasilar opacity likely representing pleural effusions with associated volume loss and/or consolidation. 2. Severe atherosclerotic calcification of the aorta. Landon Marrero MD Upper Extremity Ultrasound 04/20/17 0000 Signed Impressions: Service Date/Time: Thursday, April 20, 2017 17:40 - CONCLUSION: No evidence of left upper extremity DVT. Landon Robbins MD Assessment and Plan Problem List: (1) Atrial fibrillation ICD Codes: I48.91 - Unspecified atrial fibrillation Plan: increased metoprolol; given no active bleeding seen in endoscopy will initiate warfarin (will clear w/ gi) (2) Aortic valvar stenosis ICD Codes: I35.0 - Nonrheumatic aortic (valve) stenosis Plan: will update his echo (3) ESRD (end stage renal disease) on dialysis ICD Codes: N18.6 - End stage renal disease; Z99.2 - Dependence on renal dialysis Assessment and Plan Dr. rich will return tomorrow to resume care. Simone Ludwig MD Apr 25, 2017 15:52
[2017-04-25 19:39] LABS: INTERNATIONAL NORMALIZED RATIO 1.4 RATIO; PROTHROMBIN TIME - PATIENT 13.8 SEC (9.8-11.6)
[2017-04-25] MEDS ORDERED: WARFARIN SOD 2.5 MG TAB PO ONE (21:00)
[2017-04-25] MEDS ORDERED: METOPROLOL TARTRATE 25 MG TAB PO SCH (21:00)
[2017-04-25] MEDS: METOPROLOL TARTRATE 25 MG TAB PO SCH (21:02)
[2017-04-26] VITALS (8 sets, daily range): BP systolic 100–120; BP diastolic 65–74; PULSE 103–130; RESP 18; TEMP 97.2–97.9; O2SAT 94–96
[2017-04-26] MEDS: PANTOPRAZOLE 80 MG/100 ML NS IV SCH ×4 (02:58→10:07)
[2017-04-26 09:01] LABS: HEMATOCRIT 28.4 % (39.0-51.0); HEMOGLOBIN 9.3 GM/DL (13.0-17.0); MEAN CELL VOLUME 102.3 FL (80.0-100.0); MEAN CORPUSCULAR HEMOGLOBIN 33.5 PG (27.0-34.0); MEAN CORPUSCULAR HGB CONC 32.8 % (32.0-36.0); MEAN PLATELET VOLUME 9.5 FL (7.0-11.0); PLATELET COUNT 155 TH/MM3 (150-450); RED BLOOD COUNT 2.78 MIL/MM3 (4.50-5.90); RED CELL DISTRIBUTION WIDTH 17.1 % (11.6-17.2); WHITE BLOOD COUNT 7.3 TH/MM3 (4.0-11.0)
[2017-04-26 09:09] LABS: INTERNATIONAL NORMALIZED RATIO 1.5 RATIO; PROTHROMBIN TIME - PATIENT 15.5 SEC (9.8-11.6)
[2017-04-26] MEDS: VANCOMYCIN 500 MG VIAL (FOR ORAL USE ONLY) PO SCH ×4 (09:59→20:57)
[2017-04-26] MEDS: SODIUM CHLORIDE 0.9% FLUSH 10 ML FLUSH IV FLUSH SCH ×2 (09:59→20:59)
[2017-04-26] MEDS: METOPROLOL TARTRATE 25 MG TAB PO SCH ×2 (09:59→20:57)
[2017-04-26] MEDS: ALLOPURINOL 100 MG TAB PO SCH (09:59)
[2017-04-26] MEDS: CINACALCET HYDROCHLORIDE 30 MG TAB PO SCH (09:59)
[2017-04-26 10:22] LABS: BICARBONATE 25.8 MEQ/L (21.0-32.0); CALCIUM 9.1 MG/DL (8.5-10.1); CREATININE 8.5 MG/DL (0.60-1.30)
--- NOTE | 2017-04-26 10:49 | HHI.NPPN ---
Subjective General Problems: Anemia, Edema, Hypertension Renal Failure: End Stage Renal Disease History of Present Illness Patient is a very pleasant 76 y/o male with ESRD on hemodialysis on T, Th and Sat, who during hemodialysis he had a syncopl episode and was hypotnesive with SBP in the 70's. He has had recent admission due to fluid overload and found also C Diff positive was reported a melenic stool by EMS HGB at 8.9. Hemocult stool positive. Potassium is elevated at 5.5 at ER. Additional Remarks Patient is alert and oriented. No SOB. (Prachi Huitron) Additional Remarks Doing better, for HD today. (Quiana Mayers MD) Review of Systems General General Remarks Resting comfortably (Prachi Huitron) Respiratory Respiratory Remarks Denies SOB (Prachi Huitron) Cardiovascular Cardiac: Edema Cardiac Remarks Denies CP, Edema noted in left upper extremity (Prachi Huitron) Gastrointestinal GI Remarks Denies abdominal pain (Prachi Huitron) Genitourinary Remarks Denies Dysuria (Prachi Huitron) Objective Data Data Vital Signs Date Time Temp Pulse Resp B/P (MAP) Pulse Ox O2 Delivery O2 Flow Rate FiO2 04/26/17 08:00 97.5 116 18 120/74 (89) 94 04/26/17 05:28 97.2 115 18 108/68 (81) 96 04/26/17 00:47 97.4 113 18 115/71 (86) 94 04/25/17 23:37 113 04/25/17 20:25 96.5 114 20 106/72 (83) 97 04/25/17 19:51 118 04/25/17 18:08 95 21 04/25/17 16:30 114 04/25/17 16:17 97.2 110 16 98/66 (77) 95 04/25/17 12:40 97.1 115 16 116/72 (87) 94 04/25/17 12:30 117 (Prachi Huitron) -: 04/26/17 0837 04/26/17 0837 Imaging Last Impressions Fistulagram 04/23/17 0000 Signed Impressions: Service Date/Time: Sunday, April 23, 2017 12:00 - CONCLUSION: The patient's arteriovenous fistula, venous outflow and central venous structures are widely patent. There is brisk flow through this the swelling in the upper extremity may be related to the high flow through the fistula. Pacheco Mahajan MD Head CT 04/20/17 1208 Signed Impressions: Service Date/Time: Thursday, April 20, 2017 13:56 - CONCLUSION: Normal examination for a patient of this age. Farhan Kasper MD Chest X-Ray 04/20/17 1208 Signed Impressions: Service Date/Time: Thursday, April 20, 2017 13:05 - CONCLUSION: 1. Mild bibasilar opacity likely representing pleural effusions with associated volume loss and/or consolidation. 2. Severe atherosclerotic calcification of the aorta. Landon Marrero MD Upper Extremity Ultrasound 04/20/17 0000 Signed Impressions: Service Date/Time: Thursday, April 20, 2017 17:40 - CONCLUSION: No evidence of left upper extremity DVT. Landon Robbins MD (GellermannPrachi M. MANOMETER TECHNICIAN) Physical Exam General Appearance: Well Nourished, No Acute Distress, Comfortable (GellermannJenPrachi M. MANOMETER TECHNICIAN) Eyes Eye Exam: Pupils Equal (GellermannJenPrachi M. MANOMETER TECHNICIAN) Throat Throat Exam: Oral Mucosa [place] & Moist (GellerJen costane M. MANOMETER TECHNICIAN) Neck Neck Exam: Neck Supple (GellermannJenPrachi M. MANOMETER TECHNICIAN) Pulmonary Resp Exam: Breath Sounds Equal, No Distress (GellermannJenPrachi M. MANOMETER TECHNICIAN) Cardiology CV Exam: Normal Sinus Rhythm, Murmur (GellermannJenPrachi M. MANOMETER TECHNICIAN) Gastrointestinal/Abdomen GI Exam: Soft, Non-Tender (GellermannJenPrachi M. MANOMETER TECHNICIAN) Genitourinary Exam: Flank Non-Tender (GellermannJenPrachi M. MANOMETER TECHNICIAN) Integumentary Skin Exam: Clear, Warm (GellermannJenPrachi M. MANOMETER TECHNICIAN) Extremeties Extremities Exam: Moderate Edema (GellermannPrachi M. MANOMETER TECHNICIAN) Neurologic Neuro Exam: Alert, Awake, Oriented, Speech Clear (GellermannJenPrachi M. MANOMETER TECHNICIAN) Psychiatric Psych Exam: Appropriate Responses (Gellermann,Prachi M. MANOMETER TECHNICIAN) PUD Prophylasis PUD Prophylaxis: Protonix (Prachi Huitron) Assessment/Plan Discussed Condition With: Patient Assessment Summary: End Stage Renal Disease Problem List: (1) ESRD (end stage renal disease) on dialysis ICD Codes: N18.6 - End stage renal disease; Z99.2 - Dependence on renal dialysis Plan: Left arm elevated and edema is improving. U/S showing no DVT, Fistulogram done, results noted. Patient has HD done Wednesday. His days are changed , will try to put back on TTS next week. Endoscopy results noted. Hgb. is stable. HR increased, now on Metoprolol. (2) Hypotension ICD Codes: I95.9 - Hypotension, unspecified Status: Acute Plan: Resolved blood pressure improved. Tachycardia noted. Cardiology consulted and managing. On metoprolol may need to be increased. (3) Anemia ICD Codes: D64.9 - Anemia Status: Acute Plan: HGB 9.3 today. Epogen 10,000 units after each dialysis (4) C. difficile diarrhea ICD Codes: A04.72 - Enterocolitis due to Clostridium difficile, not specified as recurrent Status: Acute Plan: On vancomycin orally (5) GI bleed ICD Codes: K92.2 - Gastrointestinal hemorrhage, unspecified Status: Acute Plan: Stool positive for occult blood Protonix gtt GI managing EGD and colonoscopy done Pangastritis, Duodenitis, Colon polyp, and Diverticulosis noted (Prachi Huitron) Problem List: (1) ESRD (end stage renal disease) on dialysis ICD Codes: N18.6 - End stage renal disease; Z99.2 - Dependence on renal dialysis Plan: Left arm elevated and edema is improving. U/S showing no DVT, Fistulogram done, results noted. Patient has HD done Wednesday. His days are changed , will try to put back on TTS next week. Endoscopy results noted. Hgb. is stable. HR increased, now on Metoprolol and improving. HD today, then will change to TTS. (2) Hypotension ICD Codes: I95.9 - Hypotension, unspecified Status: Acute Plan: Resolved blood pressure improved. Tachycardia noted. Cardiology consulted and managing. On metoprolol may need to be increased. (3) Anemia ICD Codes: D64.9 - Anemia Status: Acute Plan: HGB 9.3 today. Epogen 10,000 units after each dialysis (4) C. difficile diarrhea ICD Codes: A04.72 - Enterocolitis due to Clostridium difficile, not specified as recurrent Status: Acute Plan: On vancomycin orally (5) GI bleed ICD Codes: K92.2 - Gastrointestinal hemorrhage, unspecified Status: Acute Plan: Stool positive for occult blood Protonix gtt GI managing EGD and colonoscopy done Pangastritis, Duodenitis, Colon polyp, and Diverticulosis noted (Quiana Mayers MD) Problem Qualifiers (1) Hypotension: Qualified Codes: I95.9 - Hypotension, unspecified (2) GI bleed: Qualified Codes: K92.2 - Gastrointestinal hemorrhage, unspecified Prachi Huitron Apr 26, 2017 10:49 Quiana Mayers MD Apr 26, 2017 15:47
[2017-04-26] MEDS: SODIUM CHLOR 0.9% 1000 ML INJ 1,000 ML IV SCH ×2 (11:00→20:59)
[2017-04-26] MEDS: EPOETIN ALFA 10,000 UNITS/ML VIAL IV PUSH PRN (15:57)
--- NOTE | 2017-04-26 16:07 | HHI.GIFU ---
Subjective Remarks Pt in bed NAD, getting dialysis. Denies loose stool, melena, bleeding. (Jessica Weathers) Objective Vitals I&O Vital Signs Date Time Temp Pulse Resp B/P (MAP) Pulse Ox O2 Delivery O2 Flow Rate FiO2 04/26/17 12:00 97.6 113 18 100/65 (77) 96 04/26/17 08:00 97.5 116 18 120/74 (89) 94 04/26/17 05:28 97.2 115 18 108/68 (81) 96 04/26/17 00:47 97.4 113 18 115/71 (86) 94 04/25/17 23:37 113 04/25/17 20:25 96.5 114 20 106/72 (83) 97 04/25/17 19:51 118 04/25/17 18:08 95 21 04/25/17 16:30 114 04/25/17 16:17 97.2 110 16 98/66 (77) 95 I/O 04/25/17 04/25/17 04/25/17 04/26/17 04/26/17 04/26/17 07:00 15:00 23:00 07:00 15:00 23:00 Intake Total 100 ml 1080 ml 446 ml Balance 100 ml 1080 ml 446 ml IV Total 100 ml 1080 ml 446 ml # Voids 1 Laboratory Laboratory Tests Test 04/25/17 18:38 04/26/17 08:37 Prothrombin Time 13.8 15.5 Prothromb Time International Ratio 1.4 1.5 White Blood Count 7.3 Red Blood Count 2.78 Hemoglobin 9.3 Hematocrit 28.4 Mean Corpuscular Volume 102.3 Mean Corpuscular Hemoglobin 33.5 Mean Corpuscular Hemoglobin Concent 32.8 Red Cell Distribution Width 17.1 Platelet Count 155 Mean Platelet Volume 9.5 Hematology Comments Blood Urea Nitrogen 47 Creatinine 8.50 Random Glucose 104 Calcium Level 9.1 Sodium Level 140 Potassium Level 4.3 Chloride Level 104 Carbon Dioxide Level 25.8 Anion Gap 10 Estimat Glomerular Filtration Rate 6 Date/Time Source Procedure Growth Status 04/20/17 14:40 Blood Peripheral Aerobic Blood Culture - Final NO GROWTH IN 5 DAYS Complete 04/20/17 14:40 Blood Peripheral Anaerobic Blood Culture - Final NO GROWTH IN 5 DAYS Complete Imaging Last Impressions Fistulagram 04/23/17 0000 Signed Impressions: Service Date/Time: Sunday, April 23, 2017 12:00 - CONCLUSION: The patient's arteriovenous fistula, venous outflow and central venous structures are widely patent. There is brisk flow through this the swelling in the upper extremity may be related to the high flow through the fistula. Pacheco Mahajan MD Head CT 04/20/17 1208 Signed Impressions: Service Date/Time: Thursday, April 20, 2017 13:56 - CONCLUSION: Normal examination for a patient of this age. Farhan Kasper MD Chest X-Ray 04/20/17 1208 Signed Impressions: Service Date/Time: Thursday, April 20, 2017 13:05 - CONCLUSION: 1. Mild bibasilar opacity likely representing pleural effusions with associated volume loss and/or consolidation. 2. Severe atherosclerotic calcification of the aorta. Landon Marrero MD Upper Extremity Ultrasound 04/20/17 0000 Signed Impressions: Service Date/Time: Thursday, April 20, 2017 17:40 - CONCLUSION: No evidence of left upper extremity DVT. Landon Robbins MD Physical Exam HEENT: PERRL; normocephalic; atraumatic; no jaundice. poor dentition CHEST: CTA CARDIAC: RRR + murmur ABDOMEN: Soft, nondistended, nontender; no hepatosplenomegaly; bowel sounds are present in all four quadrants. EXTREMITIES: No clubbing, cyanosis, or edema. SKIN: Normal; no rash; no jaundice. MESS ATTENDANT: No focal deficits; alert and oriented times three. (Jessica Weathers [facility]) Assessment and Plan Plan ASSESSMENT - melanotic stool - per report had for couple weeks. poor historian. heme pos stool in ER. denies any further melena - anemia - hgb 8.9 on admission, macrocytic. likely multifactorial. HH stable. s/p EGD and colonoscopy 04/24/17 found pangastritis, duodenitis, colon polyp diverticulosis, bx bending. - pos c diff tox pcr - denies loose stools. on PO vanc - ESRD on HD- nephrology following - cervical stenosis - neurosurgery following - aortic stenosis - TAVR pending dental work PLAN - [place] - await biopsies - continue PO vanc 10-14 days from 04/21 - monitor labs - transfuse as needed - supportive care - PPI - further recs to follow this pt seen by myself and Dr Johnson and this note is written on his behalf (Jessica Weathers) Physician Comments Seen and examined with KAYE, doing well with no bleeding. Diarrhea improved. Await biopsy results. GI will sign off, reconsult as needed. thankyou (Coy Johnson MD) Jessica Weathers Apr 26, 2017 16:07 Coy Johnson MD Apr 26, 2017 18:37
--- NOTE | 2017-04-26 16:25 | HHI.PR ---
Subjective Remarks Heart rate still uncontrolled. Patient denies chest pain or shortness of breath. Objective Vitals Vital Signs Date Time Temp Pulse Resp B/P (MAP) Pulse Ox O2 Delivery O2 Flow Rate FiO2 04/26/17 12:00 97.6 113 18 100/65 (77) 96 04/26/17 08:00 97.5 116 18 120/74 (89) 94 04/26/17 05:28 97.2 115 18 108/68 (81) 96 04/26/17 00:47 97.4 113 18 115/71 (86) 94 04/25/17 23:37 113 04/25/17 20:25 96.5 114 20 106/72 (83) 97 04/25/17 19:51 118 04/25/17 18:08 95 21 04/25/17 16:30 114 I/O 04/25/17 04/25/17 04/25/17 04/26/17 04/26/17 04/26/17 07:00 15:00 23:00 07:00 15:00 23:00 Intake Total 100 ml 1080 ml 446 ml Balance 100 ml 1080 ml 446 ml IV Total 100 ml 1080 ml 446 ml # Voids 1 Result Diagram: 04/26/17 0837 04/26/17 0837 Objective Remarks GENERAL: Obese, elderly male. in no apparent distress. CARDIOVASCULAR: Rate around 110. Irregular rhythm. There is a 4/6 SARAH murmur loudest over the right upper sternal border RESPIRATORY: Good respiratory efforts. Breath sounds equal and clear to auscultation bilaterally. GASTROINTESTINAL: Abdomen soft, non-tender, non-distended. Normal active bowel sounds MUSCULOSKELETAL: Extremities without cyanosis, or edema. NEURO: Alert & Oriented x4 to person, place, time, situation. Moves all ext x4 PSYCH: Appropriate mood and affect. A/P Assessment and Plan 76-year-old male with a medical history significant for severe aortic stenosis in need of TAVR, end-stage renal disease on hemodialysis, recent diagnosis of C. difficile colitis. The patient [facility], during dialysis, he had an acute episode of near syncope and hypotension. Workup in the emergency room revealed positive stool Hemoccult. Afib with RVR overnight on 04/25/17: Patient denies history of afib. - Cardiology following. Patient was started on metoprolol, dose increased to 75 mg twice a day. Patient started on Coumadin. Monitor INR - Rates still uncontrolled. BP borderline. Defer to cardiology for further adjustments. Near syncope, recurrent falls by history: Tachyarrhythmia might have contributed. Likely related to severe aortic stenosis and debility. Patient will need TAVR per previous medical biller/coder recommendations but needs dental work first. Continue rehabilitation efforts with PT. - Previously seen by Cardiology. Reconsulted. Acute on chronic anemia likely secondary to GI bleeding. Status post blood transfusion two units of PRBCs. - Status post EGD/colonoscopy which revealed Pangastritis, Duodenitis, Colon polyp, Diverticulosis - GI recommends PPI. Further workup with pill endoscopy may be entertained if anemia persisting. -H&H stable. Continue oral PPI. GI cleared to use Coumadin since no active bleeding was found. Monitor closely. Severe Aortic Stenosis: Patient needs TAVR as above. Will need follow-up with cardiology once his dental issues has been taken care of. Poor dentition: Multiple decayed teeth. Patient advised to follow-up with a dentist outpatient [place]. ESRD on HD: T//Wed, who had Hypotension while on hemodialysis. No obvious signs of sepsis. -Nephrology following. Hemodialysis per nephrology. -Fistula evaluated by IR. No issues. HTN: Controlled. Continue current medications C. difficile positive: -Continue vancomycin by mouth. Cervical stenosis: Previously seen by Neurosurgery. No surgical intervention planned. No new neurological findings. Continue to monitor. DVT Prophylaxis: SCDs, on Coumadin Discharge Planning Need better rate control. Probable discharge back to SNF when stable Coral Caceres MD Apr 26, 2017 16:25
[2017-04-26] MEDS: WARFARIN SOD 2.5 MG TAB PO SCH ×3 (16:59→17:55)
[2017-04-26] MEDS ORDERED: guaiFENesin E.R. 600 MG TAB PO SCH (21:45)
[2017-04-27] VITALS (10 sets, daily range): BP systolic 76–108; BP diastolic 56–69; PULSE 109–125; RESP 18–20; TEMP 97.2–98.1; O2SAT 93–96
[2017-04-27] MEDS ORDERED: SODIUM CHLOR 0.9% 250 ML INJ 250 ML IV ONE (05:00)
[2017-04-27] MEDS: SODIUM CHLORIDE 0.9% FLUSH 10 ML FLUSH IV FLUSH SCH ×2 (09:00→20:44)
[2017-04-27] MEDS: VANCOMYCIN 500 MG VIAL (FOR ORAL USE ONLY) PO SCH ×4 (09:22→20:41)
[2017-04-27] MEDS: PANTOPRAZOLE SOD 40 MG DELAYED RELEASE TAB PO SCH (09:22)
[2017-04-27] MEDS: CINACALCET HYDROCHLORIDE 30 MG TAB PO SCH (09:22)
[2017-04-27] MEDS: ALLOPURINOL 100 MG TAB PO SCH (09:22)
[2017-04-27 09:32] LABS: INTERNATIONAL NORMALIZED RATIO 2.7 RATIO
[2017-04-27 09:33] LABS: HEMATOCRIT 30.2 % (39.0-51.0); HEMOGLOBIN 10.1 GM/DL (13.0-17.0); MEAN CELL VOLUME 103.7 FL (80.0-100.0); MEAN CORPUSCULAR HEMOGLOBIN 34.5 PG (27.0-34.0); MEAN CORPUSCULAR HGB CONC 33.3 % (32.0-36.0); MEAN PLATELET VOLUME 10.2 FL (7.0-11.0); PLATELET COUNT 193 TH/MM3 (150-450); RED BLOOD COUNT 2.92 MIL/MM3 (4.50-5.90); RED CELL DISTRIBUTION WIDTH 17.4 % (11.6-17.2); WHITE BLOOD COUNT 7.4 TH/MM3 (4.0-11.0)
[2017-04-27] MEDS ORDERED: MIDODRINE 5 MG TAB PO SCH (09:45)
--- NOTE | 2017-04-27 09:45 | HHI.NPPN ---
Subjective General Problems: Anemia, Edema, Hypertension Renal Failure: End Stage Renal Disease History of Present Illness Patient is a very pleasant 76 y/o male with ESRD on hemodialysis on T, Th and Sat, who during hemodialysis he had a syncopl episode and was hypotnesive with SBP in the 70's. He has had recent admission due to fluid overload and found also C Diff positive was reported a melenic stool by EMS HGB at 8.9. Hemocult stool positive. Potassium is elevated at 5.5 at ER. Additional Remarks .Blood pressure low overnight with SBP in the 70's. IVF infusing at 42ml/hr (Prachi Huitron) Review of Systems General General Remarks Resting comfortably (Prachi Huitron) Respiratory Respiratory Remarks Denies SOB (Prachi Huitron) Cardiovascular Cardiac: Edema Cardiac Remarks Denies CP, Edema noted in left upper extremity (Prachi Huitron) Gastrointestinal GI Remarks Denies abdominal pain (Prachi Huitron) Genitourinary Remarks Denies Dysuria (Prachi Huitron) Objective Data Data Vital Signs Date Time Temp Pulse Resp B/P (MAP) Pulse Ox O2 Delivery O2 Flow Rate FiO2 04/27/17 07:40 98.1 120 20 99/59 (72) 96 04/27/17 06:00 98/56 (70) 04/27/17 04:40 97.8 116 18 76/68 (71) 94 04/27/17 04:00 112 04/27/17 00:00 97.7 117 18 78/59 (65) 94 04/27/17 00:00 117 04/26/17 20:30 97.9 130 18 101/67 (78) 94 04/26/17 20:00 103 04/26/17 17:02 96 04/26/17 16:00 120 04/26/17 12:00 97.6 113 18 100/65 (77) 96 (Prachi Huitron) -: 04/27/17 0859 04/26/17 0837 Physical Exam General Appearance: Well Nourished, No Acute Distress, Comfortable (Prachi Huitron) Eyes Eye Exam: Pupils Equal (Prachi Huitron) Throat Throat Exam: Oral Mucosa [place] & Moist (Prachi Huitron) Neck Neck Exam: Neck Supple (Prachi Huitron) Pulmonary Resp Exam: Breath Sounds Equal, No Distress (Prachi Huitron) Cardiology CV Exam: Normal Sinus Rhythm, Murmur (Prachi Huitron) Gastrointestinal/Abdomen GI Exam: Soft, Non-Tender (Prachi Huitron) Genitourinary Exam: Flank Non-Tender (Prachi Huitron) Integumentary Skin Exam: Clear, Warm (Prachi Huitron) Extremeties Extremities Exam: Moderate Edema (Prachi Huitron) Neurologic Neuro Exam: Alert, Awake, Oriented, Speech Clear (Prachi Huitron) Psychiatric Psych Exam: Appropriate Responses (Prachi Huitron) PUD Prophylasis PUD Prophylaxis: Protonix (Prachi Huitron) Assessment/Plan Discussed Condition With: Patient Assessment Summary: End Stage Renal Disease Problem List: (1) ESRD (end stage renal disease) on dialysis ICD Codes: N18.6 - End stage renal disease; Z99.2 - Dependence on renal dialysis Plan: Left arm elevated and edema is improving. U/S showing no DVT, Fistulogram done, results noted. His days are changed , will try to put back on TTS next week. Endoscopy results noted. Hgb. is stable. HR increased Metoprolol on hold secondary to hypotension per cardiology Will order midodrine on dialysis days. Next dialysis scheduled for TTS. (2) Hypotension ICD Codes: I95.9 - Hypotension, unspecified Status: Acute Plan: Hypotensive overnight with SBP in the 70's. IVF infusing. Tachycardia noted. Cardiology consulted and managing. On metop (3) Anemia ICD Codes: D64.9 - Anemia Status: Acute Plan: Labs pending Epogen 10,000 units after each dialysis (4) C. difficile diarrhea ICD Codes: A04.72 - Enterocolitis due to Clostridium difficile, not specified as recurrent Status: Acute Plan: On vancomycin orally (5) GI bleed ICD Codes: K92.2 - Gastrointestinal hemorrhage, unspecified Status: Acute Plan: Stool positive for occult blood Protonix gtt GI managing EGD and colonoscopy done Pangastritis, Duodenitis, Colon polyp, and Diverticulosis noted (Prachi Huitron) Problem List: (1) ESRD (end stage renal disease) on dialysis ICD Codes: N18.6 - End stage renal disease; Z99.2 - Dependence on renal dialysis Plan: Left arm elevated and edema is improving. U/S showing no DVT, Fistulogram done, results noted. His days are changed , will try to put back on TTS next week. Endoscopy results noted. Hgb. is stable. HR increased Metoprolol on hold secondary to hypotension per cardiology Will order midodrine on dialysis days. Next dialysis scheduled for TTS. HR increased, awaiting Cardiology input. (2) Hypotension ICD Codes: I95.9 - Hypotension, unspecified Status: Acute Plan: Hypotensive overnight with SBP in the 70's. IVF infusing. Tachycardia noted. Cardiology consulted and managing. On metop (3) Anemia ICD Codes: D64.9 - Anemia Status: Acute Plan: Labs pending Epogen 10,000 units after each dialysis (4) C. difficile diarrhea ICD Codes: A04.72 - Enterocolitis due to Clostridium difficile, not specified as recurrent Status: Acute Plan: On vancomycin orally (5) GI bleed ICD Codes: K92.2 - Gastrointestinal hemorrhage, unspecified Status: Acute Plan: Stool positive for occult blood Protonix gtt GI managing EGD and colonoscopy done Pangastritis, Duodenitis, Colon polyp, and Diverticulosis noted (Quiana Mayers MD) Problem Qualifiers (1) Hypotension: Qualified Codes: I95.9 - Hypotension, unspecified (2) GI bleed: Qualified Codes: K92.2 - Gastrointestinal hemorrhage, unspecified Prachi Huitron Apr 27, 2017 09:45 Quiana Mayers MD Apr 27, 2017 15:18
[2017-04-27 09:55] LABS: BICARBONATE 26.7 MEQ/L (21.0-32.0); CALCIUM 9.1 MG/DL (8.5-10.1); CREATININE 6.86 MG/DL (0.60-1.30)
--- NOTE | 2017-04-27 13:42 | HHI.PR ---
Subjective Remarks Follow up a-fib with RVR, c difficile. Patient reports weakness and cough. No chest pain, nausea, vomiting. Objective Vitals Vital Signs Date Time Temp Pulse Resp B/P (MAP) Pulse Ox O2 Delivery O2 Flow Rate FiO2 04/27/17 11:48 97.4 109 20 108/62 (77) 94 04/27/17 07:40 98.1 120 20 99/59 (72) 96 04/27/17 06:00 98/56 (70) 04/27/17 04:40 97.8 116 18 76/68 (71) 94 04/27/17 04:00 112 04/27/17 00:00 97.7 117 18 78/59 (65) 94 04/27/17 00:00 117 04/26/17 20:30 97.9 130 18 101/67 (78) 94 04/26/17 20:00 103 04/26/17 17:02 96 04/26/17 16:00 120 I/O 04/26/17 04/26/17 04/26/17 04/27/17 04/27/17 04/27/17 07:00 15:00 23:00 07:00 15:00 23:00 Intake Total 446 ml 1000 ml 100 ml 240 ml Balance 446 ml 1000 ml 100 ml 240 ml Intake Oral 240 ml IV Total 446 ml 1000 ml 100 ml Result Diagram: 04/27/17 0859 04/27/17 0859 Imaging Last Impressions Fistulagram 04/23/17 0000 Signed Impressions: Service Date/Time: Sunday, April 23, 2017 12:00 - CONCLUSION: The patient's arteriovenous fistula, venous outflow and central venous structures are widely patent. There is brisk flow through this the swelling in the upper extremity may be related to the high flow through the fistula. Pacheco Mahajan MD Head CT 04/20/17 120 Signed Impressions: Service Date/Time: Thursday, April 20, 2017 13:56 - CONCLUSION: Normal examination for a patient of this age. Farhan Kasper MD Chest X-Ray 04/20/171207 Signed Impressions: Service Date/Time: Thursday, April 20, 2017 13:05 - CONCLUSION: 1. Mild bibasilar opacity likely representing pleural effusions with associated volume loss and/or consolidation. 2. Severe atherosclerotic calcification of the aorta. Landon Marrero MD Upper Extremity Ultrasound 04/20/17 0000 Signed Impressions: Service Date/Time: Thursday, April 20, 2017 17:40 - CONCLUSION: No evidence of left upper extremity DVT. Landon Robbins MD Objective Remarks General: Elderly male in no acute distress. Heart: Tachycardic, irregular rhythm. 4/6 systolic murmur. Lungs: Clear to auscultation bilaterally. No wheezes, rales, or rhonchi. Breathing is nonlabored. Abdomen: Soft, nontender, nondistended. Extremities: No lower extremity edema. Psych: Alert and oriented. Procedures None Urinary Catheter: No Vascular Central Line Catheter: No A/P Assessment and Plan 1. Atrial fibrillation with RVR: Continues to have elevated rate. Continue metoprolol. Defer further management to cardiology. Continue Coumadin. INR is therapeutic. 2. Near syncope, recurrent falls: Tachyarrhythmia may have contributed to these episodes. Patient also has severe aortic stenosis and debility. 3. Acute on chronic anemia: Likely secondary to GI bleed. Appreciate GI recommendations. Patient has received transfusion of 2 units PRBCs. EGD/ colonoscopy showed pangastritis, duodenitis, colon polyp, diverticulosis. Continue PPI. May need further workup with capsule endoscopy. 4. Severe aortic stenosis: Patient needs TAVR. Surgery on hold pending dental work. 5. Poor dentition: Patient has multiple decayed teeth. He has been advised to follow-up with a dentist as an outpatient as soon as possible. 6. End-stage renal disease on hemodialysis: Management per nephrology. 7. Hypertension: Continue current medications. 8. C. difficile: Continue oral vancomycin. 9. Cervical spinal stenosis: Evaluated previously by neurosurgery. 10. DVT prophylaxis: SCDs, Coumadin. Discharge Planning Pending improved rate control. González Olivera MD Apr 27, 2017 13:41
[2017-04-27] MEDS ORDERED: BENZOCAINE-MENTHOL (SUGAR FREE) 15 MG-3.6 MG LOZENGE BUCCAL PRN (15:00)
[2017-04-27] MEDS ORDERED: TEMAZEPAM 7.5 MG CAP PO PRN (15:30)
--- NOTE | 2017-04-27 18:47 | ECHRPT ---
Indication: / ATRIAL FIB/FLUTTER CONCLUSIONS Severe concentric left ventricular hypertrophy. The left ventricular systolic function is low normal with an estimated ejection fraction in the rang e of 50- 55%. A patent foramen ovale is present with a [id number] shunt demonstrated by color flow Doppler interrogation. Moderate mitral valve regurgitation. Mild aortic valve regurgitation. Severe aortic stenosis (peal 94, mean 55, NATA 0.5). There is mild to moderate tricuspid valve regurgitation. There is estimated severe pulmonary hypertension present ( > 70 mmHg). Bilateral pleural effusions noted. BP: 116 / 72 HR: 119 Rhythm: Atrial fibrillation, Atrial flut ter MEASUREMENTS (Male / Female) Normal Values Technical Quality:Fair 2D ECHO LV Diastolic Diameter PLAX 3.9 cm 4.2 - 5.9 / 3.9 - 5.3 cm LV Systolic Diameter PLAX 3.0 cm IVS Diastolic Thickness 1.8 cm 0.6 - 1.0 / 0.6 - 0.9 cm LVPW Diastolic Thickness 1.8 cm 0.6 - 1.0 / 0.6 - 0.9 cm LV Relative Wall Thickness 0.9 RV Internal Dim ED PLAX 3.0 cm LVOT Diameter 2.1 cm Aortic Root Diameter 4.1 cm LA Systolic Diameter LX 3.9 cm 3.0 - 4.0 / 2.7 - 3.8 cm DOPPLER AV Peak Velocity 484.0 cm/s AV Peak Gradient 93.7 mmHg AV Mean Gradient 55.2 mmHg AV Velocity Time Integral 102.0 cm AI Peak Velocity 411.5 cm/s AI Peak Gradient 67.7 mmHg AI Pressure Half Time 404.8 ms LVOT Peak Velocity 83.4 cm/s LVOT Peak Gradient 2.8 mmHg LVOT Velocity Time Integral 12.6 cm AV Area Cont Eq vti 0.4 cm AV Area Cont Eq pk 0.6 cm Mitral E Point Velocity 172.3 cm/s LV E' Lateral Velocity 6.9 cm/s Mitral E to LV E' Lateral Ratio 24.9 LV E' Septal Velocity 5.6 cm/s Mitral E to LV E' Septal Ratio 30.8 TR Peak Velocity 398.0 cm/s TR Peak Gradient 63.4 mmHg Right Atrial Pressure 10.0 mmHg Pulmonary Artery Systolic Pressu 73.4 mmHg Right Ventricular Systolic Press 73.4 mmHg PV Peak Velocity 61.0 cm/s PV Peak Gradient 1.5 mmHg FINDINGS LEFT VENTRICLE Normal left ventricular size. Severe concentric left ventricular hypertrophy. The left ventricular systolic function is low normal with an estimated ejection fraction in the rang e of 50- 55%. RIGHT VENTRICLE Grossly normal right ventricle LEFT ATRIUM The left atrial size is [id number] dilated. RIGHT ATRIUM The right atrial size is moderately dilated. ATRIAL SEPTUM A patent foramen ovale is present with a [id number] shunt demonstrated by color flow Doppler interrogation. AORTA The aortic root and proximal ascending aorta are normal in size on limited imaging. MITRAL VALVE Severe mitral annular calcification. Moderate mitral valve regurgitation. No mitral valve stenosis. AORTIC VALVE Diffuse calcification of the aortic valve. Mild aortic valve regurgitation. Severe aortic stenosis (peal 94, mean 55, NATA 0.5) TRICUSPID VALVE There is mild to moderate tricuspid valve regurgitation. The estimated pulmonary arterial pressure is 73.4 mmHg. There is estimated severe pulmonary hypertension present ( > 70 mmHg). PULMONARY VALVE The pulmonary valve is not well visualized. VESSELS The inferior vena cava is normal in size. PERICARDIUM No pericardial effusion. Bilateral pleural effusions noted. Jeffrey Ortiz DO (Electronically Signed) Final Date:27 April 2017 18:46
[2017-04-28] VITALS (9 sets, daily range): BP systolic 100–124; BP diastolic 70–82; PULSE 86–131; RESP 18–20; TEMP 96.6–98.9; O2SAT 94–98
[2017-04-28 07:28] LABS: PROTHROMBIN TIME - PATIENT 29.8 SEC (9.8-11.6)
[2017-04-28] MEDS: ALLOPURINOL 100 MG TAB PO SCH (08:45)
[2017-04-28] MEDS: VANCOMYCIN 500 MG VIAL (FOR ORAL USE ONLY) PO SCH ×4 (08:45→21:54)
[2017-04-28] MEDS: PANTOPRAZOLE SOD 40 MG DELAYED RELEASE TAB PO SCH (08:45)
--- NOTE | 2017-04-28 08:50 | HHI.NPPN ---
Subjective General Problems: Anemia, Edema, Hypertension Renal Failure: End Stage Renal Disease History of Present Illness Patient is a very pleasant 76 y/o male with ESRD on hemodialysis on T, Th and Sat, who during hemodialysis he had a syncopl episode and was hypotnesive with SBP in the 70's. He has had recent admission due to fluid overload and found also C Diff positive was reported a melenic stool by EMS HGB at 8.9. Hemocult stool positive. Potassium is elevated at 5.5 at ER. Additional Remarks Alert and oriented. Denies any SOB. No edema noted. Dialysis planned for tomorrow (Prachi Huitron) Review of Systems General General Remarks Resting comfortably, weakness (Prachi Huitron) Respiratory Respiratory Remarks Denies SOB (Prachi Huitron) Cardiovascular Cardiac: Edema Cardiac Remarks Denies CP, Edema noted in left upper extremity (Prachi Huitron) Gastrointestinal GI Remarks Denies abdominal pain (Prachi Huitron) Genitourinary Remarks Denies Dysuria (Prachi Huitron) Objective Data Data Vital Signs Date Time Temp Pulse Resp B/P (MAP) Pulse Ox O2 Delivery O2 Flow Rate FiO2 04/28/17 08:00 120 18 101/75 (84) 94 04/28/17 04:00 98.9 96 18 124/76 (92) 98 04/28/17 00:00 98.1 86 20 113/76 (88) 95 04/27/17 19:50 97.6 121 20 107/69 (82) 93 04/27/17 17:45 96 21 04/27/17 16:05 97.2 125 20 105/66 (79) 96 04/27/17 16:00 125 04/27/17 11:48 97.4 109 20 108/62 (77) 94 (Prachi Huitron) -: 04/27/17 0859 04/27/17 0859 Imaging Last Impressions Fistulagram 04/23/17 0000 Signed Impressions: Service Date/Time: Sunday, April 23, 2017 12:00 - CONCLUSION: The patient's arteriovenous fistula, venous outflow and central venous structures are widely patent. There is brisk flow through this the swelling in the upper extremity may be related to the high flow through the fistula. Pacheco Mahajan MD Head CT 04/20/17 1208 Signed Impressions: Service Date/Time: Thursday, April 20, 2017 13:56 - CONCLUSION: Normal examination for a patient of this age. Farhan Kasper MD Chest X-Ray 04/20/17 1208 Signed Impressions: Service Date/Time: Thursday, April 20, 2017 13:05 - CONCLUSION: 1. Mild bibasilar opacity likely representing pleural effusions with associated volume loss and/or consolidation. 2. Severe atherosclerotic calcification of the aorta. Landon Marrero MD Upper Extremity Ultrasound 04/20/17 0000 Signed Impressions: Service Date/Time: Thursday, April 20, 2017 17:40 - CONCLUSION: No evidence of left upper extremity DVT. Landon Robbins MD (GellermannPrachi M. GREENHOUSE INSTRUCTOR) Physical Exam General Appearance: Well Nourished, No Acute Distress, Comfortable (Gellermann,Prachi M. GREENHOUSE INSTRUCTOR) Eyes Eye Exam: Pupils Equal (GellermannPrachi M. GREENHOUSE INSTRUCTOR) Throat Throat Exam: Oral Mucosa [place] & Moist (Gellermann,Prachi M. GREENHOUSE INSTRUCTOR) Neck Neck Exam: Neck Supple (Gellermann,Prachi M. GREENHOUSE INSTRUCTOR) Pulmonary Resp Exam: Breath Sounds Equal, No Distress (Gellermann,Prachi M. GREENHOUSE INSTRUCTOR) Cardiology CV Exam: Normal Sinus Rhythm, Murmur (GellermannPrachi M. GREENHOUSE INSTRUCTOR) Gastrointestinal/Abdomen GI Exam: Soft, Non-Tender (GellermannPrachi M. GREENHOUSE INSTRUCTOR) Genitourinary Exam: Flank Non-Tender (GellermannPrachi M. GREENHOUSE INSTRUCTOR) Integumentary Skin Exam: Clear, Warm (Gellermann,Prachi M. GREENHOUSE INSTRUCTOR) Extremeties Extremities Exam: Moderate Edema (GellermannPrachi M. GREENHOUSE INSTRUCTOR) Neurologic Neuro Exam: Alert, Awake, Oriented, Speech Clear (GellermannPrachi M. GREENHOUSE INSTRUCTOR) Psychiatric Psych Exam: Appropriate Responses (GellermannPrachi M. GREENHOUSE INSTRUCTOR) PUD Prophylasis PUD Prophylaxis: Protonix (GellermannPrachi M. GREENHOUSE INSTRUCTOR) Assessment/Plan Discussed Condition With: Patient Assessment Summary: End Stage Renal Disease Problem List: (1) ESRD (end stage renal disease) on dialysis ICD Codes: N18.6 - End stage renal disease; Z99.2 - Dependence on renal dialysis Plan: Left arm elevated and edema is improving. U/S showing no DVT, Fistulogram done, results noted. His days are changed , will try to put back on TTS next week. Endoscopy results noted. Hgb. is stable. HR increased Metoprolol on hold secondary to hypotension per cardiology and IVF still infusing at 42 ml/hr Midodrine on dialysis days. Next dialysis scheduled for tomorrow HR increased, awaiting Cardiology input. (2) Hypotension ICD Codes: I95.9 - Hypotension, unspecified Status: Acute Plan: Blood pressure improved with SBP in the 100's Tachycardia persist. Cardiology consulted and managing. Metoprolol on hold (3) Anemia ICD Codes: D64.9 - Anemia Status: Acute Plan: Epogen 10,000 units after each dialysis (4) C. difficile diarrhea ICD Codes: A04.72 - Enterocolitis due to Clostridium difficile, not specified as recurrent Status: Acute Plan: On vancomycin orally (5) GI bleed ICD Codes: K92.2 - Gastrointestinal hemorrhage, unspecified Status: Acute Plan: Stool positive for occult blood No active bleeding GI managing EGD and colonoscopy done Pangastritis, Duodenitis, Colon polyp, and Diverticulosis noted (Prachi Huitron) Problem List: (1) ESRD (end stage renal disease) on dialysis ICD Codes: N18.6 - End stage renal disease; Z99.2 - Dependence on renal dialysis Plan: Left arm elevated and edema is improving. U/S showing no DVT, Fistulogram done, results noted. His days are changed , will try to put back on TTS next week. Endoscopy results noted. Hgb. is stable. HR increased Metoprolol on hold secondary to hypotension per cardiology and IVF still infusing at 42 ml/hr Midodrine on dialysis days. Next dialysis scheduled for tomorrow HR increased, awaiting Cardiology input. Ambien for sleeping. (2) Hypotension ICD Codes: I95.9 - Hypotension, unspecified Status: Acute Plan: Blood pressure improved with SBP in the 100's Tachycardia persist. Cardiology consulted and managing. Metoprolol on hold (3) Anemia ICD Codes: D64.9 - Anemia Status: Acute Plan: Epogen 10,000 units after each dialysis (4) C. difficile diarrhea ICD Codes: A04.72 - Enterocolitis due to Clostridium difficile, not specified as recurrent Status: Acute Plan: On vancomycin orally (5) GI bleed ICD Codes: K92.2 - Gastrointestinal hemorrhage, unspecified Status: Acute Plan: Stool positive for occult blood No active bleeding GI managing EGD and colonoscopy done Pangastritis, Duodenitis, Colon polyp, and Diverticulosis noted (uQiana Mayers MD) Problem Qualifiers (1) Hypotension: Qualified Codes: I95.9 - Hypotension, unspecified (2) GI bleed: Qualified Codes: K92.2 - Gastrointestinal hemorrhage, unspecified Prachi Huitron Apr 28, 2017 08:50 Quiana Mayers MD Apr 28, 2017 12:24
[2017-04-28] MEDS: SODIUM CHLORIDE 0.9% FLUSH 10 ML FLUSH IV FLUSH SCH ×2 (09:00→21:06)
[2017-04-28] MEDS: CINACALCET HYDROCHLORIDE 30 MG TAB PO SCH (09:55)
--- NOTE | 2017-04-28 13:06 | PD.CARD.PN ---
Subjective Subjective Remarks AFIB WITH RVR ASYMPTOMATIC Objective Medications Current Medications Medications (Trade) Dose Ordered Sig/Jamal Route Start Time Stop Time Status Last Admin Sodium Chloride 1,000 ml @ 42 mls/hr [id number] IV 04/20/17 15:03 04/26/17 20:59 (NS Flush) 2 ml UNSCH PRN IV FLUSH 04/20/17 15:15 (NS Flush) 2 ml BID IV FLUSH 04/20/17 21:00 04/28/17 09:00 (Tylenol) 650 mg Q4H PRN PO 04/20/17 15:15 (Zofran Inj) 4 mg Q6H PRN IVP 04/20/17 15:15 (Narcan Inj) 0.4 mg UNSCH PRN IV PUSH 04/20/17 15:15 (Senokot) 17.2 mg Q12H PRN PO 04/20/17 15:15 (Dulcolax Supp) 10 mg DAILY PRN RECTAL 04/20/17 15:15 (Lactulose Liq) 30 ml DAILY PRN PO 04/20/17 15:15 (Zyloprim) 100 mg DAILY PO 04/21/17 09:00 04/28/17 08:45 (Sensipar) 30 mg DAILY PO 04/21/17 09:00 04/28/17 09:55 Sodium Chloride 1,000 ml @ 0 mls/hr Q0M PRN OTHER 04/20/17 19:26 (Heparin Inj) 8,000 units UNSCH PRN IV FLUSH 04/20/17 19:30 Sodium Chloride 1,000 ml @ 200 mls/hr Q5H PRN IV 04/20/17 19:26 Sodium Chloride 1,000 ml @ 0 mls/hr Q0M PRN OTHER 04/20/17 19:26 (Mannitol Inj) 12.5 gm UNSCH PRN IV 04/20/17 19:30 Albumin Human 100 ml @ 60 mls/hr UNSCH PRN IV 04/20/17 19:30 04/23/17 14:21 (NS Flush) 5 ml UNSCH PRN IV FLUSH 04/20/17 19:30 (Heparin Inj) UNSCH PRN .XX 04/20/17 19:30 (Gentamicin (Dialysis) Inj) 20 mg UNSCH PRN OTHER 04/20/17 19:30 (Zofran Inj) 4 mg UNSCH PRN IV PUSH 04/20/17 19:30 (Tylenol) 650 mg UNSCH PRN PO 04/20/17 19:30 (Nitrostat Sl) 0.4 mg UNSCH PRN SL 04/20/17 19:30 (Catapres) 0.1 mg UNSCH PRN PO 04/20/17 19:30 (Epogen Inj) 10,000 units UNSCH PRN IV PUSH 04/20/17 19:30 04/26/17 15:57 (Gelfoam 12 Mm/7 Mm Top) 1 foam UNSCH PRN TOP 04/20/17 19:30 04/23/17 16:23 (VANCOMYCIN for oral use only) 125 mg QID PO 04/21/17 18:00 04/28/17 12:48 (Lopressor) 75 mg Q12HR PO 04/25/17 21:00 Future Hold 04/26/17 20:57 Pharmacy Profile Note 0 ml @ 0 mls/hr UNSCH OTHER 04/25/17 16:00 (Coumadin) 2.5 mg DAILY@1600 PO 04/26/17 16:00 Future Hold 04/26/17 17:30 (Protonix) 40 mg DAILY PO 04/27/17 09:00 04/28/17 08:45 (Proamatine) 10 mg WITH DIALYSIS PO 04/27/17 09:45 (Cepacol Extra Haim (Sugar Free)) 1 lozenge Q2HR PRN BUCCAL 04/27/17 15:00 (Restoril) 7.5 mg HS PRN PO 04/27/17 15:30 (Ambien) 5 mg HS PRN PO 04/28/17 21:00 Vital Signs / I&O Vital Signs Date Time Temp Pulse Resp B/P (MAP) Pulse Ox O2 Delivery O2 Flow Rate FiO2 04/28/17 12:00 96.6 130 18 100/82 (88) 98 04/28/17 08:00 120 18 101/75 (84) 94 04/28/17 04:00 98.9 96 18 124/76 (92) 98 04/28/17 00:00 98.1 86 20 113/76 (88) 95 04/27/17 19:50 97.6 121 20 107/69 (82) 93 04/27/17 17:45 96 21 04/27/17 16:05 97.2 125 20 105/66 (79) 96 04/27/17 16:00 125 I/O 04/27/17 04/27/17 04/27/17 04/28/17 04/28/17 04/28/17 07:00 15:00 23:00 07:00 15:00 23:00 Intake Total 240 ml 240 ml 1370 ml Balance 240 ml 240 ml 1370 ml Intake Oral 240 ml 240 ml 120 ml IV Total 1250 ml # Voids 1 # Bowel Movements 1 Physical Exam GENERAL: Well-nourished, well-developed patient. SKIN: Warm and dry. HEAD: Normocephalic. EYES: No scleral icterus. No injection or drainage. NECK: Supple, trachea midline. No JVD or lymphadenopathy. CARDIOVASCULAR: IRR IRR +m RESPIRATORY: Breath sounds equal bilaterally. No accessory muscle use. GASTROINTESTINAL: Abdomen soft, non-tender, nondistended. EXTREMITIES: No cyanosis, or edema. NEUROLOGICAL: Awake, alert, and oriented x 3. Non-focal. Laboratory Laboratory Tests Test 04/28/17 06:40 Prothrombin Time 29.8 SEC Prothromb Time International Ratio 3.0 RATIO Assessment and Plan Problem List: (1) Atrial fibrillation ICD Codes: I48.91 - Unspecified atrial fibrillation Plan: RESUME LOPRESSOR CONT OAC IF NO CONTRAINDICATIONS (2) Aortic valvar stenosis ICD Codes: I35.0 - Nonrheumatic aortic (valve) stenosis (3) ESRD (end stage renal disease) on dialysis ICD Codes: N18.6 - End stage renal disease; Z99.2 - Dependence on renal dialysis Jasson Sewell MD Apr 28, 2017 13:06
[2017-04-28] MEDS: SODIUM CHLOR 0.9% 1000 ML INJ 1,000 ML IV SCH (13:35)
--- NOTE | 2017-04-28 14:57 | HHI.PR ---
Subjective Remarks Follow up a-fib with RVR. Patient denies chest pain, dyspnea, nausea, vomiting. Going to dialysis now. Objective Vitals Vital Signs Date Time Temp Pulse Resp B/P (MAP) Pulse Ox O2 Delivery O2 Flow Rate FiO2 04/28/17 12:00 96.6 130 18 100/82 (88) 98 04/28/17 08:00 120 18 101/75 (84) 94 04/28/17 04:00 98.9 96 18 124/76 (92) 98 04/28/17 00:00 98.1 86 20 113/76 (88) 95 04/27/17 19:50 97.6 121 20 107/69 (82) 93 04/27/17 17:45 96 21 04/27/17 16:05 97.2 125 20 105/66 (79) 96 04/27/17 16:00 125 I/O 04/27/17 04/27/17 04/27/17 04/28/17 04/28/17 04/28/17 07:00 15:00 23:00 07:00 15:00 23:00 Intake Total 240 ml 240 ml 1370 ml Balance 240 ml 240 ml 1370 ml Intake Oral 240 ml 240 ml 120 ml IV Total 1250 ml # Voids 1 # Bowel Movements 1 Result Diagram: 04/27/17 0859 04/27/17 0859 Imaging Last Impressions Fistulagram 04/23/17 0000 Signed Impressions: Service Date/Time: Sunday, April 23, 2017 12:00 - CONCLUSION: The patient's arteriovenous fistula, venous outflow and central venous structures are widely patent. There is brisk flow through this the swelling in the upper extremity may be related to the high flow through the fistula. Pacheco Mahajan MD Head CT 04/20/178 Signed Impressions: Service Date/Time: Thursday, April 20, 2017 13:56 - CONCLUSION: Normal examination for a patient of this age. Farhan Kasper MD Chest X-Ray 04/20/171207 Signed Impressions: Service Date/Time: Thursday, April 20, 2017 13:05 - CONCLUSION: 1. Mild bibasilar opacity likely representing pleural effusions with associated volume loss and/or consolidation. 2. Severe atherosclerotic calcification of the aorta. Landon Marrero MD Upper Extremity Ultrasound 04/20/17 0000 Signed Impressions: Service Date/Time: Thursday, April 20, 2017 17:40 - CONCLUSION: No evidence of left upper extremity DVT. Landon Robbins MD Objective Remarks General: Elderly male in no acute distress. Heart: Tachycardic, irregular rhythm. 4/6 systolic murmur. Lungs: Clear to auscultation bilaterally. No wheezes, rales, or rhonchi. Breathing is nonlabored. Abdomen: Soft, nontender, nondistended. Extremities: No lower extremity edema. Psych: Alert and oriented. Procedures None Urinary Catheter: No Vascular Central Line Catheter: No A/P Assessment and Plan 1. Atrial fibrillation with RVR: Continues to have elevated rate. Continue metoprolol. Defer further management to cardiology. Continue Coumadin. INR is therapeutic. 2. Near syncope, recurrent falls: Tachyarrhythmia may have contributed to these episodes. Patient also has severe aortic stenosis and debility. 3. Acute on chronic anemia: Likely secondary to GI bleed. Appreciate GI recommendations. Patient has received transfusion of 2 units PRBCs. EGD/ colonoscopy showed pangastritis, duodenitis, colon polyp, diverticulosis. Continue PPI. May need further workup with capsule endoscopy. 4. Severe aortic stenosis: Patient needs TAVR. Surgery on hold pending dental work. 5. Poor dentition: Patient has multiple decayed teeth. He has been advised to follow-up with a dentist as an outpatient as soon as possible. 6. End-stage renal disease on hemodialysis: Management per nephrology. 7. Hypertension: Continue current medications. 8. C. difficile: Continue oral vancomycin. 9. Cervical spinal stenosis: Evaluated previously by neurosurgery. 10. DVT prophylaxis: SCDs, Coumadin. 11. Patent foramen ovale: Consult CT surgery. Continue anticoagulation. Discharge Planning Pending improved rate control. González Olivera MD Apr 28, 2017 14:56
[2017-04-28] MEDS ORDERED: METOPROLOL TARTRATE 25 MG TAB PO ONE (23:30)
[2017-04-29] VITALS (10 sets, daily range): BP systolic 94–137; BP diastolic 64–92; PULSE 80–144; RESP 18–19; TEMP 95.6–97.7; O2SAT 93–95
[2017-04-29 07:55] LABS: INTERNATIONAL NORMALIZED RATIO 2.8 RATIO; PROTHROMBIN TIME - PATIENT 28.7 SEC (9.8-11.6)
[2017-04-29] MEDS: CINACALCET HYDROCHLORIDE 30 MG TAB PO SCH (08:02)
[2017-04-29] MEDS: PANTOPRAZOLE SOD 40 MG DELAYED RELEASE TAB PO SCH (08:02)
[2017-04-29] MEDS: ALLOPURINOL 100 MG TAB PO SCH (08:02)
[2017-04-29] MEDS: SODIUM CHLORIDE 0.9% FLUSH 10 ML FLUSH IV FLUSH SCH ×2 (08:02→23:41)
[2017-04-29] MEDS: VANCOMYCIN 500 MG VIAL (FOR ORAL USE ONLY) PO SCH ×5 (08:03→23:40)
--- NOTE | 2017-04-29 10:10 | HHI.NPPN ---
Subjective General Problems: Anemia, Edema, Hypertension Renal Failure: End Stage Renal Disease History of Present Illness Patient is a very pleasant 76 y/o male with ESRD on hemodialysis on T, Th and Sat, who during hemodialysis he had a syncopl episode and was hypotnesive with SBP in the 70's. He has had recent admission due to fluid overload and found also C Diff positive was reported a melenic stool by EMS HGB at 8.9. Hemocult stool positive. Potassium is elevated at 5.5 at ER. Additional Remarks Seen during dialysis. Denies any SOB. Reports he did not sleep well because of interruptions. (Prachi Huitron) Review of Systems General General Remarks Resting comfortably, weakness (Prachi Huitron) Respiratory Respiratory Remarks Denies SOB (Prachi Huitron) Cardiovascular Cardiac: Edema Cardiac Remarks Denies CP, Edema noted in left upper extremity (Prachi Huitron) Gastrointestinal GI Remarks Denies abdominal pain (Prachi Huitron) Genitourinary Remarks Denies Dysuria (Prachi Huitron) Objective Data Data 04/29/17 04/30/17 19:00 07:00 # Voids 1 # Bowel Movements 1 Vital Signs Date Time Temp Pulse Resp B/P (MAP) Pulse Ox O2 Delivery O2 Flow Rate FiO2 04/29/17 08:10 96.2 132 18 98/77 (84) 93 04/29/17 05:32 97.5 80 18 137/92 (107) 04/29/17 00:33 95 21 04/29/17 00:19 96.6 130 19 102/72 (82) 95 04/28/17 20:00 125 04/28/17 16:06 98 04/28/17 16:00 98.0 120 18 110/70 (83) 94 04/28/17 14:00 131 04/28/17 12:00 96.6 130 18 100/82 (88) 98 (Prachi Huitron) -: 04/27/17 0859 04/27/17 0859 Physical Exam General Appearance: Well Nourished, No Acute Distress, Comfortable (Prachi Huitron) Eyes Eye Exam: Pupils Equal (Prachi Huitron) Throat Throat Exam: Oral Mucosa [place] & Moist (Prachi Huitron) Neck Neck Exam: Neck Supple (Prachi Huitron) Pulmonary Resp Exam: Breath Sounds Equal, No Distress (Prachi Huitron) Cardiology CV Exam: Normal Sinus Rhythm, Murmur (Prachi Huitron) Gastrointestinal/Abdomen GI Exam: Soft, Non-Tender (Prachi Huitron) Genitourinary Exam: Flank Non-Tender (Prachi Huitron) Integumentary Skin Exam: Clear, Warm (Prachi Huitron) Extremeties Extremities Exam: Moderate Edema (Prachi Huitron) Neurologic Neuro Exam: Alert, Awake, Oriented, Speech Clear (Prachi Huitron) Psychiatric Psych Exam: Appropriate Responses (Prachi Huitron) PUD Prophylasis PUD Prophylaxis: Protonix (Prachi Huitron) Assessment/Plan Discussed Condition With: Patient Assessment Summary: End Stage Renal Disease Problem List: (1) ESRD (end stage renal disease) on dialysis ICD Codes: N18.6 - End stage renal disease; Z99.2 - Dependence on renal dialysis Plan: Left arm elevated and edema is improving. U/S showing no DVT, Fistulogram done, results noted. Endoscopy results noted. Hgb. is stable. Hypotension resolved will discontinue IVF Midodrine on dialysis days. HR increased, awaiting Cardiology input. [place] for sleeping Seen during dialysis tolerating well. (2) Hypotension ICD Codes: I95.9 - Hypotension, unspecified Status: Acute Plan: Blood pressure improved with SBP in the 100's Tachycardia persist. Cardiology consulted and managing. Metoprolol resumed (3) Anemia ICD Codes: D64.9 - Anemia Status: Acute Plan: Epogen 10,000 units after each dialysis (4) C. difficile diarrhea ICD Codes: A04.72 - Enterocolitis due to Clostridium difficile, not specified as recurrent Status: Acute Plan: On vancomycin orally (5) GI bleed ICD Codes: K92.2 - Gastrointestinal hemorrhage, unspecified Status: Acute Plan: Stool positive for occult blood No active bleeding GI managing EGD and colonoscopy done Pangastritis, Duodenitis, Colon polyp, and Diverticulosis noted (Prachi Huitron) Problem List: (1) ESRD (end stage renal disease) on dialysis ICD Codes: N18.6 - End stage renal disease; Z99.2 - Dependence on renal dialysis Plan: Left arm elevated and edema is improving. U/S showing no DVT, Fistulogram done, results noted. Endoscopy results noted. Hgb. is stable. Hypotension resolved will discontinue IVF Midodrine on dialysis days. HR increased, awaiting Cardiology input. Ambien for sleeping Seen during dialysis tolerating well. Patient seen and examine, agree with above. Cardiology follow up noted. (2) Hypotension ICD Codes: I95.9 - Hypotension, unspecified Status: Acute Plan: Blood pressure improved with SBP in the 100's Tachycardia persist. Cardiology consulted and managing. Metoprolol resumed (3) Anemia ICD Codes: D64.9 - Anemia Status: Acute Plan: Epogen 10,000 units after each dialysis (4) C. difficile diarrhea ICD Codes: A04.72 - Enterocolitis due to Clostridium difficile, not specified as recurrent Status: Acute Plan: On vancomycin orally (5) GI bleed ICD Codes: K92.2 - Gastrointestinal hemorrhage, unspecified Status: Acute Plan: Stool positive for occult blood No active bleeding GI managing EGD and colonoscopy done Pangastritis, Duodenitis, Colon polyp, and Diverticulosis noted (Quiana Mayers MD) Problem Qualifiers (1) Hypotension: Qualified Codes: I95.9 - Hypotension, unspecified (2) GI bleed: Qualified Codes: K92.2 - Gastrointestinal hemorrhage, unspecified Prachi Huitron Apr 29, 2017 10:10 Quiana Mayers MD Apr 29, 2017 16:23
[2017-04-29] MEDS: EPOETIN ALFA 10,000 UNITS/ML VIAL IV PUSH PRN (11:16)
[2017-04-29] MEDS: GELATIN 12 MM/7 MM FOAM TOP PRN (11:16)
[2017-04-29] MEDS: METOPROLOL TARTRATE 25 MG TAB PO SCH ×2 (12:34→23:41)
--- NOTE | 2017-04-29 14:22 | HHI.PR ---
Subjective Remarks Follow-up atrial fibrillation, PFO. Heart rate improving with beta anita. Patient denies chest pain, dyspnea, nausea, vomiting. Had dialysis today. Objective Vitals Vital Signs Date Time Temp Pulse Resp B/P (MAP) Pulse Ox O2 Delivery O2 Flow Rate FiO2 04/29/17 12:23 97.7 107 18 118/88 (98) 94 04/29/17 08:10 96.2 132 18 98/77 (84) 93 04/29/17 05:32 97.5 80 18 137/92 (107) 04/29/17 00:33 95 21 04/29/17 00:19 96.6 130 19 102/72 (82) 95 04/28/17 20:00 125 04/28/17 16:06 98 04/28/17 16:00 98.0 120 18 110/70 (83) 94 I/O 04/28/17 04/28/17 04/28/17 04/29/17 04/29/17 04/29/17 07:00 15:00 23:00 07:00 15:00 23:00 Output Total 3000 ml Balance -3000 ml Hemodialysis 3000 ml # Voids 1 0 1 # Bowel Movements 1 1 Result Diagram: 04/27/17 0859 04/27/17 0859 Imaging Last Impressions Fistulagram 04/23/17 0000 Signed Impressions: Service Date/Time: Sunday, April 23, 2017 12:00 - CONCLUSION: The patient's arteriovenous fistula, venous outflow and central venous structures are widely patent. There is brisk flow through this the swelling in the upper extremity may be related to the high flow through the fistula. Pacheco Mahajan MD Head CT 04/20/17 1208 Signed Impressions: Service Date/Time: Thursday, April 20, 2017 13:56 - CONCLUSION: Normal examination for a patient of this age. Farhan Kasper MD Chest X-Ray 04/20/17 1208 Signed Impressions: Service Date/Time: Thursday, April 20, 2017 13:05 - CONCLUSION: 1. Mild bibasilar opacity likely representing pleural effusions with associated volume loss and/or consolidation. 2. Severe atherosclerotic calcification of the aorta. Landon Marrero MD Upper Extremity Ultrasound 04/20/17 0000 Signed Impressions: Service Date/Time: Thursday, April 20, 2017 17:40 - CONCLUSION: No evidence of left upper extremity DVT. Landon Robbins MD Objective Remarks General: Elderly male in no acute distress. Heart: Tachycardic, irregular rhythm. 4/6 systolic murmur. Lungs: Clear to auscultation bilaterally. No wheezes, rales, or rhonchi. Breathing is nonlabored. Abdomen: Soft, nontender, nondistended. Extremities: No lower extremity edema. Psych: Alert and oriented. Procedures None Urinary Catheter: No Vascular Central Line Catheter: No A/P Assessment and Plan 1. Atrial fibrillation with RVR: Appreciate cardiology recommendations. Continue metoprolol. Rate somewhat better today. Continue Coumadin. INR is therapeutic. 2. Near syncope, recurrent falls: Tachyarrhythmia may have contributed to these episodes. Patient also has severe aortic stenosis and debility. 3. Acute on chronic anemia: Likely secondary to GI bleed. Appreciate GI recommendations. Patient has received transfusion of 2 units PRBCs. EGD/ colonoscopy showed pangastritis, duodenitis, colon polyp, diverticulosis. Continue PPI. May need further workup with capsule endoscopy. 4. Severe aortic stenosis: Patient needs TAVR. Surgery on hold pending dental work. 5. Poor dentition: Patient has multiple decayed teeth. He has been advised to follow-up with a dentist as an outpatient as soon as possible. 6. End-stage renal disease on hemodialysis: Management per nephrology. 7. Hypertension: Continue current medications. 8. C. difficile: Continue oral vancomycin. 9. Cervical spinal stenosis: Evaluated previously by neurosurgery. 10. DVT prophylaxis: SCDs, Coumadin. 11. Patent foramen ovale: Consult CT surgery. Continue anticoagulation. Discharge Planning Pending cardiothoracic surgery evaluation, improved rate control. González Olivera MD Apr 29, 2017 14:22
[2017-04-29] MEDS: WARFARIN SOD 1 MG TAB PO SCH (15:25)
[2017-04-30] VITALS (10 sets, daily range): BP systolic 102–120; BP diastolic 56–92; PULSE 44–153; RESP 17–20; TEMP 96.1–98.1; O2SAT 92–98
[2017-04-30 08:25] LABS: PROTHROMBIN TIME - PATIENT 39.7 SEC (9.8-11.6)
[2017-04-30] MEDS: VANCOMYCIN 500 MG VIAL (FOR ORAL USE ONLY) PO SCH ×4 (09:26→21:00)
[2017-04-30] MEDS: CINACALCET HYDROCHLORIDE 30 MG TAB PO SCH (09:27)
[2017-04-30] MEDS: METOPROLOL TARTRATE 25 MG TAB PO SCH ×2 (09:27→21:51)
[2017-04-30] MEDS: SODIUM CHLORIDE 0.9% FLUSH 10 ML FLUSH IV FLUSH SCH ×2 (09:27→21:52)
[2017-04-30] MEDS: PANTOPRAZOLE SOD 40 MG DELAYED RELEASE TAB PO SCH (09:27)
[2017-04-30] MEDS: ALLOPURINOL 100 MG TAB PO SCH (09:27)
--- NOTE | 2017-04-30 11:28 | HHI.NPPN ---
Subjective General Problems: Anemia, Edema, Hypertension Renal Failure: End Stage Renal Disease History of Present Illness Patient is a very pleasant 76 y/o male with ESRD on hemodialysis on T, Th and Sat, who during hemodialysis he had a syncopl episode and was hypotnesive with SBP in the 70's. He has had recent admission due to fluid overload and found also C Diff positive was reported a melenic stool by EMS HGB at 8.9. Hemocult stool positive. Potassium is elevated at 5.5 at ER. Additional Remarks OOB in Chair. Denies any SOB. Cardiothoracic surgery consult pending (Prachi Huitron) Review of Systems General General Remarks Resting comfortably, weakness (Prachi Huitron) Respiratory Respiratory Remarks Denies SOB (Prachi Huitron) Cardiovascular Cardiac: Edema Cardiac Remarks Denies CP, Edema noted in left upper extremity (Prachi Huitron) Gastrointestinal GI Remarks Denies abdominal pain (Prachi Huitron) Genitourinary Remarks Denies Dysuria (Prachi Huitron) Objective Data Data Vital Signs Date Time Temp Pulse Resp B/P (MAP) Pulse Ox O2 Delivery O2 Flow Rate FiO2 04/30/17 10:24 103 04/30/17 08:19 97.1 128 18 102/73 (83) 93 04/30/17 05:03 98.1 128 20 120/56 (77) 95 04/30/17 01:09 97.8 152 19 104/77 (86) 98 04/30/17 00:21 116 04/29/17 21:11 95.6 105 18 112/64 (80) 95 04/29/17 20:00 117 04/29/17 18:05 116 04/29/17 17:11 95.6 86 18 94/66 (75) 94 04/29/17 12:23 97.7 107 18 118/88 (98) 94 (Prachi Huitron) -: 04/27/17 0859 04/27/17 0859 Physical Exam General Appearance: Well Nourished, No Acute Distress, Comfortable (Prachi Huitron) Eyes Eye Exam: Pupils Equal (Prachi Huitron) Throat Throat Exam: Oral Mucosa [place] & Moist (Prachi Huitron) Neck Neck Exam: Neck Supple (Prachi Huitron) Pulmonary Resp Exam: Breath Sounds Equal, No Distress (Prachi Huitron) Cardiology CV Exam: Normal Sinus Rhythm, Murmur (Prachi Huitron) Gastrointestinal/Abdomen GI Exam: Soft, Non-Tender (Prachi Huitron) Genitourinary Exam: Flank Non-Tender (Prachi Huitron) Integumentary Skin Exam: Clear, Warm (Prachi Huitron) Extremeties Extremities Exam: Moderate Edema (Prachi Huitron) Neurologic Neuro Exam: Alert, Awake, Oriented, Speech Clear (Prachi Huitron) Psychiatric Psych Exam: Appropriate Responses (Prachi Huitron) PUD Prophylasis PUD Prophylaxis: Protonix (Prachi Huitron) Assessment/Plan Discussed Condition With: Patient Assessment Summary: End Stage Renal Disease Problem List: (1) ESRD (end stage renal disease) on dialysis ICD Codes: N18.6 - End stage renal disease; Z99.2 - Dependence on renal dialysis Plan: Left arm elevated and edema is improving. U/S showing no DVT, Fistulogram done, results noted. Endoscopy results noted. Hgb is stable. Hypotension resolved Midodrine on dialysis days. HR labile at 100-125. Metoprolol has been restarted, Cardiology managing Cardiothoracic surgery consult is pending (2) Hypotension ICD Codes: I95.9 - Hypotension, unspecified Status: Acute Plan: Hypotension resolved Tachycardia persist. Asymptomatic. Cardiology consulted and managing. Metoprolol resumed (3) Anemia ICD Codes: D64.9 - Anemia Status: Acute Plan: Epogen 10,000 units after each dialysis (4) C. difficile diarrhea ICD Codes: A04.72 - Enterocolitis due to Clostridium difficile, not specified as recurrent Status: Acute Plan: On vancomycin orally (5) GI bleed ICD Codes: K92.2 - Gastrointestinal hemorrhage, unspecified Status: Acute Plan: Stool positive for occult blood No active bleeding GI managing EGD and colonoscopy done Pangastritis, Duodenitis, Colon polyp, and Diverticulosis noted (Prachi Huitron) Problem List: (1) ESRD (end stage renal disease) on dialysis ICD Codes: N18.6 - End stage renal disease; Z99.2 - Dependence on renal dialysis Plan: Left arm elevated and edema is improving. U/S showing no DVT, Fistulogram done, results noted. Endoscopy results noted. Hgb is stable. Hypotension resolved Midodrine on dialysis days. HR labile at 100-125. Metoprolol has been restarted, Cardiology managing Cardiothoracic surgery consult is pending. Harpreet-Dental consulted. HD will be in AM. (2) Hypotension ICD Codes: I95.9 - Hypotension, unspecified Status: Acute Plan: Hypotension resolved Tachycardia persist. Asymptomatic. Cardiology consulted and managing. Metoprolol resumed (3) Anemia ICD Codes: D64.9 - Anemia Status: Acute Plan: Epogen 10,000 units after each dialysis (4) C. difficile diarrhea ICD Codes: A04.72 - Enterocolitis due to Clostridium difficile, not specified as recurrent Status: Acute Plan: On vancomycin orally (5) GI bleed ICD Codes: K92.2 - Gastrointestinal hemorrhage, unspecified Status: Acute Plan: Stool positive for occult blood No active bleeding GI managing EGD and colonoscopy done Pangastritis, Duodenitis, Colon polyp, and Diverticulosis noted (Quiana Mayers MD) Problem Qualifiers (1) Hypotension: Qualified Codes: I95.9 - Hypotension, unspecified (2) GI bleed: Qualified Codes: K92.2 - Gastrointestinal hemorrhage, unspecified Prachi Huitron Apr 30, 2017 11:28 Quiana Mayers MD Apr 30, 2017 19:55
--- NOTE | 2017-04-30 15:22 | HHI.PR ---
Subjective Remarks Follow up A. fib with RVR, C. difficile. Patient states that he feels about the same. Still having diarrhea. No chest pain. Objective Vitals Vital Signs Date Time Temp Pulse Resp B/P (MAP) Pulse Ox O2 Delivery O2 Flow Rate FiO2 04/30/17 12:51 94 04/30/17 12:31 96.1 44 20 110/87 (95) 94 04/30/17 10:24 103 04/30/17 08:19 97.1 128 18 102/73 (83) 93 04/30/17 05:03 98.1 128 20 120/56 (77) 95 04/30/17 01:09 97.8 152 19 104/77 (86) 98 04/30/17 00:21 116 04/29/17 21:11 95.6 105 18 112/64 (80) 95 04/29/17 20:00 117 04/29/17 18:05 116 04/29/17 17:11 95.6 86 18 94/66 (75) 94 I/O 04/29/17 04/29/17 04/29/17 04/30/17 04/30/17 04/30/17 07:00 15:00 23:00 07:00 15:00 23:00 Output Total 3000 ml Balance -3000 ml Hemodialysis 3000 ml # Voids 1 # Bowel Movements 1 1 1 Result Diagram: 04/27/17 0859 04/27/17 0859 Imaging Last Impressions Fistulagram 04/23/17 0000 Signed Impressions: Service Date/Time: Sunday, April 23, 2017 12:00 - CONCLUSION: The patient's arteriovenous fistula, venous outflow and central venous structures are widely patent. There is brisk flow through this the swelling in the upper extremity may be related to the high flow through the fistula. Pacheco Mahajan MD Head CT 04/20/17 120 Signed Impressions: Service Date/Time: Thursday, April 20, 2017 13:56 - CONCLUSION: Normal examination for a patient of this age. Farhan Kasper MD Chest X-Ray 04/20/171207 Signed Impressions: Service Date/Time: Thursday, April 20, 2017 13:05 - CONCLUSION: 1. Mild bibasilar opacity likely representing pleural effusions with associated volume loss and/or consolidation. 2. Severe atherosclerotic calcification of the aorta. Landon Marrero MD Upper Extremity Ultrasound 04/20/17 0000 Signed Impressions: Service Date/Time: Thursday, April 20, 2017 17:40 - CONCLUSION: No evidence of left upper extremity DVT. Landon Robbins MD Objective Remarks General: Elderly male in no acute distress. Heart: Tachycardic, irregular rhythm. 4/6 systolic murmur. Lungs: Clear to auscultation bilaterally. No wheezes, rales, or rhonchi. Breathing is nonlabored. Abdomen: Soft, nontender, nondistended. Extremities: No lower extremity edema. Psych: Alert and oriented. Procedures None Urinary Catheter: No Vascular Central Line Catheter: No A/P Assessment and Plan 1. Atrial fibrillation with RVR: Appreciate cardiology recommendations. Continue metoprolol. Coumadin on hold. INR is supratherapeutic. 2. Near syncope, recurrent falls: Tachyarrhythmia may have contributed to these episodes. Patient also has severe aortic stenosis and debility. 3. Acute on chronic anemia: Likely secondary to GI bleed. Appreciate GI recommendations. Patient has received transfusion of 2 units PRBCs. EGD/ colonoscopy showed pangastritis, duodenitis, colon polyp, diverticulosis. Continue PPI. May need further workup with capsule endoscopy. 4. Severe aortic stenosis: Patient needs TAVR. Surgery on hold pending dental work. 5. Poor dentition: Patient has multiple decayed teeth. Patient was discharged to SNF with understanding that dental evaluation would be arranged. This did not happen and patient was re-admitted a few days later. Will request oral surgery evaluation. 6. End-stage renal disease on hemodialysis: Management per nephrology. 7. Hypertension: Continue current medications. 8. C. difficile: Continue oral vancomycin. 9. Cervical spinal stenosis: Evaluated previously by neurosurgery. 10. DVT prophylaxis: SCDs, Coumadin. 11. Patent foramen ovale: Discussed with CT surgery. Continue anticoagulation. Discharge Planning Pending improved rate control. González Olivera MD Apr 30, 2017 15:22
--- NOTE | 2017-04-30 21:59 | MB ---
cc: MANUELA FLORENTINO MD DATE OF CONSULTATION 04/30/17 1939. Patient known to our service who was recently seen by our service 04/02/2017, [facility] who [facility] was [facility] on the and discharged to rehab. Apparently, he has also been followed by Dr. Ortiz and Dr. Fragoso. He had some difficulty with falls and was worked up by Dr. Fragoso for possible spinal stenosis, consideration of laminectomy. He underwent 2-D echo on the 26 of March, was found to have severe aortic valve stenosis with a valve area of 0.4. He underwent cardiac cath during that stay which showed an ejection fraction of 55%. The mid distal LAD 70%. The diagonal was 80. We were consulted at that time for coronary artery bypass grafting. The patient's risk of mortality was 6.9% morbidity, mortality at 32. High-risk mortality related to his end-stage renal disease, coronary disease. He was placed under evaluation for transcatheter aortic valve replacement, possible PCI to the LAD. He also had required clearance by infectious disease because he had recent C. Difficile and also at that time had significant poor dentition and needed some teeth extracted prior to valve replacement. He was readmitted on April 20 after being discharged to a shelter facility for possible syncopal episode. Reported melanotic stool by EMS. He underwent EGD with biopsy followed by colonoscopy and snare polypectomy. Found apparently a polyp which was excised, some mild diffuse diverticulosis, path returned without significant histological abnormality, no Helicobacter. The patient's hemoglobin has been stable at 10.1. He did receive two units of packed RBCs during this admission. We were reconsulted because of his aortic valve stenosis and this questionable PFO on echocardiogram that was done on the . PHYSICAL EXAMINATION VITAL SIGNS: On evaluation blood pressure is 110/80, heart rate of 100 to afebrile. GENERAL: Patient is awake, alert, no acute distress. HEENT: Head is normocephalic, atraumatic. Pupils equal and reactive. Oral mucosa pink, moist. NECK: Supple. No JVD. CARDIAC: Heart sounds S1, S2, irregular rate and rhythm. Positive for about a 3/6 systolic murmur best heard on the left sternal border. LUNGS: Diminished in the bases, otherwise clear to auscultation. ABDOMEN: Soft, nontender. No masses or organomegaly. EXTREMITIES: No cyanosis, clubbing or edema. LABORATORY DATA Hemoglobin 10.1, hematocrit of 30. White cell count 7.4, platelet count 193. Sodium 139, potassium 3.8, BUN 34, creatinine 0.86, INR 1.0. IMPRESSION Patient with known severe aortic stenosis. Recommendation is for TAVR due to his frailty and his STS scoring. However, he still needs to have the dental work provided prior to any aortic valve replacement. The patient is requesting that he be possibly sent to the [place] where he has had dental procedures done in the past or continue with possible outpatient evaluation for removal of the poor dentition if his multiple decayed teeth. Oral surgery evaluation pending. Continue anticoagulation with his atrial fibrillation. INR is subtherapeutic. Coumadin on hold at this time. We will follow accordingly. However, recommend that this patient have the dental work provided and then can be evaluated further for a transcatheter aortic valve replacement so that he can undergo his possible spinal surgery that was requested on his last admission. Dictated by KAYE Ba MD DEANGELO Holman/ /5:04 PM /8:23 AM
[2017-05-01] VITALS (7 sets, daily range): BP systolic 103–123; BP diastolic 52–91; PULSE 53–123; RESP 18–20; TEMP 97.3–97.8; O2SAT 93–96
--- NOTE | 2017-05-01 08:56 | HHI.NPPN ---
Subjective General Problems: Anemia, Edema, Hypertension Renal Failure: End Stage Renal Disease History of Present Illness Patient is a very pleasant 76 y/o male with ESRD on hemodialysis on T, Th and Sat, who during hemodialysis he had a syncopl episode and was hypotnesive with SBP in the 70's. He has had recent admission due to fluid overload and found also C Diff positive was reported a melenic stool by EMS HGB at 8.9. Hemocult stool positive. Potassium was elevated at 5.5 at ER. Additional Remarks To have dialysis today. Labs, and notes were reviewed. Review of Systems General General Remarks Resting comfortably, weakness Respiratory Respiratory Remarks Denies SOB Cardiovascular Cardiac: Edema Cardiac Remarks Denies CP, Edema noted in left upper extremity Gastrointestinal GI Remarks Denies abdominal pain Genitourinary Remarks Denies Dysuria Objective Data Data Vital Signs Date Time Temp Pulse Resp B/P (MAP) Pulse Ox O2 Delivery O2 Flow Rate FiO2 05/01/17 08:00 97.3 112 20 109/87 (94) 93 05/01/17 06:12 97.6 112 18 103/77 (86) 93 05/01/17 03:47 117 05/01/17 00:59 97.8 123 18 105/52 (69) 95 05/01/17 00:04 109 04/30/17 21:53 127 119/92 (101) 04/30/17 21:10 96.2 125 17 115/86 (96) 92 04/30/17 20:01 153 04/30/17 12:51 94 04/30/17 12:31 96.1 44 20 110/87 (95) 94 04/30/17 10:24 103 -: 04/27/17 0859 04/27/17 0859 Physical Exam General Appearance: Well Nourished, No Acute Distress, Comfortable Eyes Eye Exam: Pupils Equal Throat Throat Exam: Oral Mucosa [place] & Moist Neck Neck Exam: Neck Supple Pulmonary Resp Exam: Breath Sounds Equal, No Distress Cardiology CV Exam: Normal Sinus Rhythm, Murmur Gastrointestinal/Abdomen GI Exam: Soft, Non-Tender Genitourinary Exam: Flank Non-Tender Integumentary Skin Exam: Clear, Warm Extremeties Extremities Exam: Moderate Edema Neurologic Neuro Exam: Alert, Awake, Oriented, Speech Clear Psychiatric Psych Exam: Appropriate Responses PUD Prophylasis PUD Prophylaxis: Protonix Assessment/Plan Discussed Condition With: Patient Assessment Summary: End Stage Renal Disease Problem List: (1) ESRD (end stage renal disease) on dialysis ICD Codes: N18.6 - End stage renal disease; Z99.2 - Dependence on renal dialysis Plan: Left arm elevated and edema is improving. U/S showing no DVT, Fistulogram done. Endoscopy results noted. Hgb is stable. Hypotension resolved Midodrine on dialysis days. Metoprolol has been restarted, Cardiology managing Cardiothoracic surgery consult is pending. Harpreet-Dental consulted. HD will be today. (2) Hypotension ICD Codes: I95.9 - Hypotension, unspecified Status: Acute Plan: Hypotension resolved Tachycardia persist. Asymptomatic. Cardiology consulted and managing. Metoprolol resumed (3) Anemia ICD Codes: D64.9 - Anemia Status: Acute Plan: Epogen 10,000 units after each dialysis (4) C. difficile diarrhea ICD Codes: A04.72 - Enterocolitis due to Clostridium difficile, not specified as recurrent Status: Acute Plan: On vancomycin orally (5) GI bleed ICD Codes: K92.2 - Gastrointestinal hemorrhage, unspecified Status: Acute Plan: Stool positive for occult blood No active bleeding GI managing EGD and colonoscopy done Pangastritis, Duodenitis, Colon polyp, and Diverticulosis noted Problem Qualifiers (1) Hypotension: Qualified Codes: I95.9 - Hypotension, unspecified (2) GI bleed: Qualified Codes: K92.2 - Gastrointestinal hemorrhage, unspecified Haider Winters MD May 01, 2017 08:56
[2017-05-01] MEDS: METOPROLOL TARTRATE 50 MG TAB PO SCH ×2 (09:00→21:15)
[2017-05-01] MEDS: SODIUM CHLORIDE 0.9% FLUSH 10 ML FLUSH IV FLUSH SCH ×2 (09:00→21:00)
[2017-05-01] MEDS: CINACALCET HYDROCHLORIDE 30 MG TAB PO SCH (09:00)
[2017-05-01] MEDS: VANCOMYCIN 500 MG VIAL (FOR ORAL USE ONLY) PO SCH ×4 (09:00→21:00)
[2017-05-01] MEDS: PANTOPRAZOLE SOD 40 MG DELAYED RELEASE TAB PO SCH (09:00)
[2017-05-01] MEDS: ALLOPURINOL 100 MG TAB PO SCH (12:35)
--- NOTE | 2017-05-01 14:26 | HHI.PR ---
Subjective Remarks Follow up a-fib, aortic stenosis, PFO. Patient has no complaints at this time. Diarrhea is improved. No chest pain, dyspnea, nausea, vomiting. Objective Vitals Vital Signs Date Time Temp Pulse Resp B/P (MAP) Pulse Ox O2 Delivery O2 Flow Rate FiO2 05/01/17 08:00 97.3 112 20 109/87 (94) 93 05/01/17 06:12 97.6 112 18 103/77 (86) 93 05/01/17 03:47 117 05/01/17 00:59 97.8 123 18 105/52 (69) 95 05/01/17 00:04 109 04/30/17 21:53 127 119/92 (101) 04/30/17 21:10 96.2 125 17 115/86 (96) 92 04/30/17 20:01 153 I/O 04/30/17 04/30/17 04/30/17 05/01/17 05/01/17 05/01/17 07:00 15:00 23:00 07:00 15:00 23:00 Output Total 2000 ml Balance -2000 ml Hemodialysis 2000 ml # Bowel Movements 1 1 1 1 Result Diagram: 04/27/17 0859 04/27/17 0859 Imaging Last Impressions Fistulagram 04/23/17 0000 Signed Impressions: Service Date/Time: Sunday, April 23, 2017 12:00 - CONCLUSION: The patient's arteriovenous fistula, venous outflow and central venous structures are widely patent. There is brisk flow through this the swelling in the upper extremity may be related to the high flow through the fistula. Pacheco Mahajan MD Head CT 04/20/17 1208 Signed Impressions: Service Date/Time: Thursday, April 20, 2017 13:56 - CONCLUSION: Normal examination for a patient of this age. Farhan Kasper MD Chest X-Ray 04/20/17 1208 Signed Impressions: Service Date/Time: Thursday, April 20, 2017 13:05 - CONCLUSION: 1. Mild bibasilar opacity likely representing pleural effusions with associated volume loss and/or consolidation. 2. Severe atherosclerotic calcification of the aorta. Landon Marrero MD Upper Extremity Ultrasound 04/20/17 0000 Signed Impressions: Service Date/Time: Thursday, April 20, 2017 17:40 - CONCLUSION: No evidence of left upper extremity DVT. Landon Robbins MD Objective Remarks General: Elderly male in no acute distress. Heart: Tachycardic, irregular rhythm. 4/6 systolic murmur. Lungs: Clear to auscultation bilaterally. No wheezes, rales, or rhonchi. Breathing is nonlabored. Abdomen: Soft, nontender, nondistended. Extremities: No lower extremity edema. Psych: Alert and oriented. Procedures None Urinary Catheter: No Vascular Central Line Catheter: No A/P Assessment and Plan 1. Atrial fibrillation with RVR: Appreciate cardiology recommendations. Continue metoprolol. Coumadin on hold. INR is supratherapeutic. 2. Near syncope, recurrent falls: Tachyarrhythmia may have contributed to these episodes. Patient also has severe aortic stenosis and debility. 3. Acute on chronic anemia: Likely secondary to GI bleed. Appreciate GI recommendations. Patient has received transfusion of 2 units PRBCs. EGD/ colonoscopy showed pangastritis, duodenitis, colon polyp, diverticulosis. Continue PPI. May need further workup with capsule endoscopy. 4. Severe aortic stenosis: Patient needs TAVR. Surgery on hold pending dental work. 5. Poor dentition: Patient has multiple decayed teeth. Patient was discharged to SNF with understanding that dental evaluation would be arranged. This did not happen and patient was re-admitted a few days later. No oral surgeon available at this time. [facility] [place] [facility], where he has had prior dental procedures. Case management to assist with arranging transfer if possible. 6. End-stage renal disease on hemodialysis: Management per nephrology. 7. Hypertension: Continue current medications. 8. C. difficile: Continue oral vancomycin. 9. Cervical spinal stenosis: Evaluated previously by neurosurgery. 10. DVT prophylaxis: SCDs, Coumadin. 11. Patent foramen ovale: Discussed with CT surgery. Continue anticoagulation. Discharge Planning Case management to assist with discharge/transfer planning. Transfer [place] if patient would be able to have dental work done there in anticipation of cardiac and neurosurgical procedures that are currently on hold. González Olivera MD May 01, 2017 14:26
[2017-05-01 16:02] LABS: INTERNATIONAL NORMALIZED RATIO 3.9 RATIO; PROTHROMBIN TIME - PATIENT 39.5 SEC (9.8-11.6)
[2017-05-02] VITALS (11 sets, daily range): BP systolic 105–125; BP diastolic 67–88; PULSE 54–133; RESP 17–20; TEMP 97.8–98; O2SAT 94–97
[2017-05-02] MEDS: PANTOPRAZOLE SOD 40 MG DELAYED RELEASE TAB PO SCH (08:25)
[2017-05-02] MEDS: SODIUM CHLORIDE 0.9% FLUSH 10 ML FLUSH IV FLUSH SCH ×2 (08:25→21:00)
[2017-05-02] MEDS: VANCOMYCIN 500 MG VIAL (FOR ORAL USE ONLY) PO SCH ×4 (08:25→21:00)
[2017-05-02] MEDS: CINACALCET HYDROCHLORIDE 30 MG TAB PO SCH (08:25)
[2017-05-02] MEDS: METOPROLOL TARTRATE 50 MG TAB PO SCH ×2 (08:25→22:12)
[2017-05-02] MEDS: ALLOPURINOL 100 MG TAB PO SCH (08:25)
--- NOTE | 2017-05-02 08:53 | HHI.NPPN ---
Subjective General Problems: Anemia, Edema, Hypertension Renal Failure: End Stage Renal Disease History of Present Illness Patient is a very pleasant 76 y/o male with ESRD on hemodialysis on , and Wed, who during hemodialysis he had a syncopl episode and was hypotnesive with SBP in the 70's. He has had recent admission due to fluid overload and found also C Diff positive was reported a melenic stool by EMS HGB at 8.9. Hemocult stool positive. Potassium was elevated at 5.5 at ER. Additional Remarks Had dialysis yesterday. Seen by cardiothoracic surgery, TAVR is recommended but he needs dental work before the procedure. Today he is complaining of back pain. Review of Systems General General Remarks Resting comfortably, weakness Respiratory Respiratory Remarks Denies SOB Cardiovascular Cardiac: Edema Cardiac Remarks Denies CP, Edema noted in left upper extremity Gastrointestinal GI Remarks Denies abdominal pain Genitourinary Remarks Denies Dysuria Objective Data Data Vital Signs Date Time Temp Pulse Resp B/P (MAP) Pulse Ox O2 Delivery O2 Flow Rate FiO2 05/02/17 08:00 97.8 86 20 106/69 (81) 94 05/02/17 05:00 98 05/02/17 04:15 98.0 54 18 125/88 (100) 96 05/02/17 02:03 119 05/02/17 00:15 98.0 56 17 120/84 (96) 97 05/01/17 20:15 97.7 53 18 121/91 (101) 96 05/01/17 16:00 97.4 119 20 123/79 (94) 96 Physical Exam General Appearance: Well Nourished, No Acute Distress, Comfortable Eyes Eye Exam: Pupils Equal Throat Throat Exam: Oral Mucosa [place] & Moist Neck Neck Exam: Neck Supple Pulmonary Resp Exam: Breath Sounds Equal, No Distress Cardiology CV Exam: Normal Sinus Rhythm, Murmur Gastrointestinal/Abdomen GI Exam: Soft, Non-Tender Genitourinary Exam: Flank Non-Tender Integumentary Skin Exam: Clear, Warm Extremeties Extremities Exam: Moderate Edema Neurologic Neuro Exam: Alert, Awake, Oriented, Speech Clear Psychiatric Psych Exam: Appropriate Responses PUD Prophylasis PUD Prophylaxis: Protonix Assessment/Plan Discussed Condition With: Patient Assessment Summary: End Stage Renal Disease Problem List: (1) ESRD (end stage renal disease) on dialysis ICD Codes: N18.6 - End stage renal disease; Z99.2 - Dependence on renal dialysis Plan: continue dialysis TTS. Monitor fluid and electrolytes. (2) Hypotension ICD Codes: I95.9 - Hypotension, unspecified Status: Acute Plan: Hypotension resolved Tachycardia persist. Asymptomatic. Cardiology consulted and managing. Metoprolol resumed (3) Anemia ICD Codes: D64.9 - Anemia Status: Acute Plan: Epogen 10,000 units after each dialysis (4) C. difficile diarrhea ICD Codes: A04.72 - Enterocolitis due to Clostridium difficile, not specified as recurrent Status: Acute Plan: On vancomycin orally (5) GI bleed ICD Codes: K92.2 - Gastrointestinal hemorrhage, unspecified Status: Acute Plan: Stool positive for occult blood No active bleeding GI managing EGD and colonoscopy done Pangastritis, Duodenitis, Colon polyp, and Diverticulosis noted (6) Aortic valvar stenosis ICD Codes: I35.0 - Nonrheumatic aortic (valve) stenosis Plan: TAVR is recommended. Patient needs dental work before procedure. Problem Qualifiers (1) Hypotension: Qualified Codes: I95.9 - Hypotension, unspecified (2) GI bleed: Qualified Codes: K92.2 - Gastrointestinal hemorrhage, unspecified Haider Winters MD May 02, 2017 08:53
--- NOTE | 2017-05-02 14:08 | HHI.PR ---
Subjective Remarks Follow-up atrial fibrillation, end-stage renal disease, aortic stenosis. Patient states that he feels about the same today. Diarrhea has improved. Denies chest pain, dyspnea, nausea, vomiting. Objective Vitals Vital Signs Date Time Temp Pulse Resp B/P (MAP) Pulse Ox O2 Delivery O2 Flow Rate FiO2 05/02/17 12:00 98.0 113 20 106/67 (80) 94 05/02/17 08:06 133 05/02/17 08:00 97.8 86 20 106/69 (81) 94 05/02/17 05:00 98 05/02/17 04:15 98.0 54 18 125/88 (100) 96 05/02/17 02:03 119 05/02/17 00:15 98.0 56 17 120/84 (96) 97 05/01/17 20:15 97.7 53 18 121/91 (101) 96 05/01/17 16:00 97.4 119 20 123/79 (94) 96 I/O 05/01/17 05/01/17 05/01/17 05/02/17 05/02/17 05/02/17 07:00 15:00 23:00 07:00 15:00 23:00 Intake Total 400 ml 1000 ml Output Total 2000 ml Balance -2000 ml 400 ml 1000 ml Intake Oral 400 ml 1000 ml Hemodialysis 2000 ml # Voids 2 2 1 # Bowel Movements 1 2 2 Imaging Last Impressions Fistulagram 04/23/17 0000 Signed Impressions: Service Date/Time: Sunday, April 23, 2017 12:00 - CONCLUSION: The patient's arteriovenous fistula, venous outflow and central venous structures are widely patent. There is brisk flow through this the swelling in the upper extremity may be related to the high flow through the fistula. Pacheco Mahajan MD Head CT 04/20/17 1208 Signed Impressions: Service Date/Time: Thursday, April 20, 2017 13:56 - CONCLUSION: Normal examination for a patient of this age. Farhan Kasper MD Chest X-Ray 04/20/17 1208 Signed Impressions: Service Date/Time: Thursday, April 20, 2017 13:05 - CONCLUSION: 1. Mild bibasilar opacity likely representing pleural effusions with associated volume loss and/or consolidation. 2. Severe atherosclerotic calcification of the aorta. Landon Marrero MD Upper Extremity Ultrasound 04/20/17 0000 Signed Impressions: Service Date/Time: Thursday, April 20, 2017 17:40 - CONCLUSION: No evidence of left upper extremity DVT. Landon Robbins MD Objective Remarks General: Elderly male in no acute distress. Heart: Tachycardic, irregular rhythm. 4/6 systolic murmur. Lungs: Clear to auscultation bilaterally. No wheezes, rales, or rhonchi. Breathing is nonlabored. Abdomen: Soft, nontender, nondistended. Extremities: No lower extremity edema. Psych: Alert and oriented. Procedures None Urinary Catheter: No Vascular Central Line Catheter: No A/P Assessment and Plan 1. Atrial fibrillation with RVR: Appreciate cardiology recommendations. Continue metoprolol. Coumadin on hold. INR is supratherapeutic. Labs are pending today. 2. Near syncope, recurrent falls: Tachyarrhythmia may have contributed to these episodes. Patient also has severe aortic stenosis and debility. 3. Acute on chronic anemia: Likely secondary to GI bleed. Appreciate GI recommendations. Patient has received transfusion of 2 units PRBCs. EGD/ colonoscopy showed pangastritis, duodenitis, colon polyp, diverticulosis. Continue PPI. May need further workup with capsule endoscopy. 4. Severe aortic stenosis: Patient needs TAVR. Surgery on hold pending dental work. 5. Poor dentition: Patient has multiple decayed teeth. Patient was discharged to SNF with understanding that dental evaluation would be arranged. This did not happen and patient was re-admitted a few days later. No oral surgeon available at this time. Patient requesting transfer to [facility], where he has had prior dental procedures. Case management to assist with arranging transfer if possible. 6. End-stage renal disease on hemodialysis: Management per nephrology. 7. Hypertension: Continue current medications. 8. C. difficile: Continue oral vancomycin. 9. Cervical spinal stenosis: Evaluated previously by neurosurgery. 10. DVT prophylaxis: SCDs, Coumadin. 11. Patent foramen ovale: Discussed with CT surgery. Continue anticoagulation. Discharge Planning Case management to assist with discharge/transfer planning. Transfer to [place] if patient would be able to have dental work done there in anticipation of cardiac and neurosurgical procedures that are currently on hold. González Olivera MD May 02, 2017 14:08
[2017-05-02 18:31] LABS: INTERNATIONAL NORMALIZED RATIO 4.4 RATIO
[2017-05-03] VITALS (13 sets, daily range): BP systolic 89–130; BP diastolic 66–84; PULSE 80–119; RESP 17–20; TEMP 96–98.1; O2SAT 93–99
[2017-05-03] MEDS: VANCOMYCIN 500 MG VIAL (FOR ORAL USE ONLY) PO SCH ×4 (09:00→23:23)
--- NOTE | 2017-05-03 09:10 | HHI.NPPN ---
Subjective General Problems: Anemia, Edema, Hypertension Renal Failure: End Stage Renal Disease History of Present Illness Patient is a very pleasant 76 y/o male with ESRD on hemodialysis on T, Th and Sat, who during hemodialysis he had a syncopl episode and was hypotnesive with SBP in the 70's. He has had recent admission due to fluid overload and found also C Diff positive was reported a melenic stool by EMS HGB at 8.9. Hemocult stool positive. Potassium was elevated at 5.5 at ER. Additional Remarks Resting comfortably. Denies any SOB. No lower extremity edema. Plans for dialysis tomorrow. Discharge plans underway (Prachi Huitron) Review of Systems General General Remarks Resting comfortably, weakness (Prachi Huitron) Respiratory Respiratory Remarks Denies SOB (Prachi Huitron) Cardiovascular Cardiac: Edema Cardiac Remarks Denies CP, Edema noted in left upper extremity (Prachi Huitron) Gastrointestinal GI Remarks Denies abdominal pain (Prachi Huitron) Genitourinary Remarks Denies Dysuria (Prachi Huitron) Objective Data Data Vital Signs Date Time Temp Pulse Resp B/P (MAP) Pulse Ox O2 Delivery O2 Flow Rate FiO2 05/03/17 07:54 96.9 106 20 130/77 (94) 93 05/03/17 05:00 97.6 80 18 100/80 (87) 95 05/03/17 00:20 98.1 80 18 110/84 (93) 94 05/02/17 20:20 21 05/02/17 20:15 97.9 88 17 105/80 (88) 94 05/02/17 20:00 115 05/02/17 16:00 126 05/02/17 12:00 98.0 113 20 106/67 (80) 94 05/02/17 11:51 114 (Prachi Huitron) Imaging Last Impressions Fistulagram 04/23/17 0000 Signed Impressions: Service Date/Time: Sunday, April 23, 2017 12:00 - CONCLUSION: The patient's arteriovenous fistula, venous outflow and central venous structures are widely patent. There is brisk flow through this the swelling in the upper extremity may be related to the high flow through the fistula. Pacheco Mahajan MD Head CT 04/20/17 1208 Signed Impressions: Service Date/Time: Thursday, April 20, 2017 13:56 - CONCLUSION: Normal examination for a patient of this age. Farhan Kasper MD Chest X-Ray 04/20/17 1208 Signed Impressions: Service Date/Time: Thursday, April 20, 2017 13:05 - CONCLUSION: 1. Mild bibasilar opacity likely representing pleural effusions with associated volume loss and/or consolidation. 2. Severe atherosclerotic calcification of the aorta. Landon Marrero MD Upper Extremity Ultrasound 04/20/17 0000 Signed Impressions: Service Date/Time: Thursday, April 20, 2017 17:40 - CONCLUSION: No evidence of left upper extremity DVT. Landon Robbins MD (Gellermann,Prachi M. [employer]) Physical Exam General Appearance: Well Nourished, No Acute Distress, Comfortable (Gellermann,Prachi M[employer]) Eyes Eye Exam: Pupils Equal (Gellermann,Prachi M[employer]) Throat Throat Exam: Oral Mucosa [place] & Moist (Gellermann,Prachi M[employer]) Neck Neck Exam: Neck Supple (Gellermann,Prachi M[employer]) Pulmonary Resp Exam: Breath Sounds Equal, No Distress (Gellermann,Prachi M[employer]) Cardiology CV Exam: Normal Sinus Rhythm, Murmur (Gellermann,Prachi M[employer]) Gastrointestinal/Abdomen GI Exam: Soft, Non-Tender (Gellermann,Prachi M[employer]) Genitourinary Exam: Flank Non-Tender (Gellermann,Prachi M[employer]) Integumentary Skin Exam: Clear, Warm (Gellermann,Prachi M[employer]) Extremeties Extremities Exam: Moderate Edema (Gellermann,Prachi M[employer]) Neurologic Neuro Exam: Alert, Awake, Oriented, Speech Clear (Gellermann,Prachi M[employer]) Psychiatric Psych Exam: Appropriate Responses (Gellermann,Prachi M[employer]) PUD Prophylasis PUD Prophylaxis: Protonix (Gellermann,Prachi M[employer]) Assessment/Plan Discussed Condition With: Patient Assessment Summary: End Stage Renal Disease Problem List: (1) ESRD (end stage renal disease) on dialysis ICD Codes: N18.6 - End stage renal disease; Z99.2 - Dependence on renal dialysis Plan: continue dialysis TTS. Monitor fluid and electrolytes. Renal panel in AM (2) Hypotension ICD Codes: I95.9 - Hypotension, unspecified Status: Acute Plan: Hypotension resolved Tachycardia improved with increased metoprolol. (3) Anemia ICD Codes: D64.9 - Anemia Status: Acute Plan: Epogen 10,000 units after each dialysis (4) C. difficile diarrhea ICD Codes: A04.72 - Enterocolitis due to Clostridium difficile, not specified as recurrent Status: Acute Plan: On vancomycin orally] Loose stools improving (5) GI bleed ICD Codes: K92.2 - Gastrointestinal hemorrhage, unspecified Status: Acute Plan: Stool positive for occult blood No active bleeding GI managing EGD and colonoscopy done Pangastritis, Duodenitis, Colon polyp, and Diverticulosis noted (6) Aortic valvar stenosis ICD Codes: I35.0 - Nonrheumatic aortic (valve) stenosis Plan: TAVR is recommended. Patient needs dental work before procedure. (Prachi Huitron) Problem List: (1) ESRD (end stage renal disease) on dialysis ICD Codes: N18.6 - End stage renal disease; Z99.2 - Dependence on renal dialysis Plan: continue dialysis TTS. Monitor fluid and electrolytes. Renal panel in AM. Patient need dental work prior ro Neurosurgical and cardiac procedures. Possibly to transfer to [place] to get Dental work done. (2) Hypotension ICD Codes: I95.9 - Hypotension, unspecified Status: Acute Plan: Hypotension resolved Tachycardia improved with increased metoprolol. (3) Anemia ICD Codes: D64.9 - Anemia Status: Acute Plan: Epogen 10,000 units after each dialysis (4) C. difficile diarrhea ICD Codes: A04.72 - Enterocolitis due to Clostridium difficile, not specified as recurrent Status: Acute Plan: On vancomycin orally] Loose stools improving (5) GI bleed ICD Codes: K92.2 - Gastrointestinal hemorrhage, unspecified Status: Acute Plan: Stool positive for occult blood No active bleeding GI managing EGD and colonoscopy done Pangastritis, Duodenitis, Colon polyp, and Diverticulosis noted (6) Aortic valvar stenosis ICD Codes: I35.0 - Nonrheumatic aortic (valve) stenosis Plan: TAVR is recommended. Patient needs dental work before procedure. (Quiana Mayers MD) Problem Qualifiers (1) Hypotension: Qualified Codes: I95.9 - Hypotension, unspecified (2) Anemia: (3) GI bleed: Qualified Codes: K92.2 - Gastrointestinal hemorrhage, unspecified Prachi Huitron May 03, 2017 09:10 Quiana Mayers MD May 03, 2017 16:06
[2017-05-03] MEDS: SODIUM CHLORIDE 0.9% FLUSH 10 ML FLUSH IV FLUSH SCH ×2 (09:33→23:26)
[2017-05-03] MEDS: METOPROLOL TARTRATE 50 MG TAB PO SCH ×2 (09:33→23:26)
[2017-05-03] MEDS: CINACALCET HYDROCHLORIDE 30 MG TAB PO SCH (09:34)
[2017-05-03] MEDS: PANTOPRAZOLE SOD 40 MG DELAYED RELEASE TAB PO SCH (09:34)
[2017-05-03] MEDS: ALLOPURINOL 100 MG TAB PO SCH (09:34)
[2017-05-03 11:22] LABS: INTERNATIONAL NORMALIZED RATIO 2.2 RATIO; PROTHROMBIN TIME - PATIENT 22.6 SEC (9.8-11.6)
--- NOTE | 2017-05-03 14:56 | HHI.PR ---
Subjective Remarks Follow up c difficile, a-fib, ESRD. Patient has no complaints at this time. Denies chest pain, dyspnea, nausea, vomiting. Having 1 loose stool/day. Objective Vitals Vital Signs Date Time Temp Pulse Resp B/P (MAP) Pulse Ox O2 Delivery O2 Flow Rate FiO2 05/03/17 12:09 96.0 103 20 109/72 (84) 93 05/03/17 10:56 95 21 05/03/17 09:35 115 05/03/17 07:54 96.9 106 20 130/77 (94) 93 05/03/17 05:00 97.6 80 18 100/80 (87) 95 05/03/17 00:20 98.1 80 18 110/84 (93) 94 05/02/17 20:20 21 05/02/17 20:15 97.9 88 17 105/80 (88) 94 05/02/17 20:00 115 05/02/17 16:00 126 I/O 05/02/17 05/02/17 05/02/17 05/03/17 05/03/17 05/03/17 07:00 15:00 23:00 07:00 15:00 23:00 Intake Total 1000 ml 800 ml 400 ml Balance 1000 ml 800 ml 400 ml Intake Oral 1000 ml 800 ml 400 ml # Voids 2 1 1 1 # Bowel Movements 2 0 2 Imaging Last Impressions Fistulagram 04/23/17 0000 Signed Impressions: Service Date/Time: Sunday, April 23, 2017 12:00 - CONCLUSION: The patient's arteriovenous fistula, venous outflow and central venous structures are widely patent. There is brisk flow through this the swelling in the upper extremity may be related to the high flow through the fistula. Pacheco Mahajan MD Head CT 04/20/17 1208 Signed Impressions: Service Date/Time: Thursday, April 20, 2017 13:56 - CONCLUSION: Normal examination for a patient of this age. Farhan Kasper MD Chest X-Ray 04/20/17 120 Signed Impressions: Service Date/Time: Thursday, April 20, 2017 13:05 - CONCLUSION: 1. Mild bibasilar opacity likely representing pleural effusions with associated volume loss and/or consolidation. 2. Severe atherosclerotic calcification of the aorta. Landon Marrero MD Upper Extremity Ultrasound 04/20/17 0000 Signed Impressions: Service Date/Time: Thursday, April 20, 2017 17:40 - CONCLUSION: No evidence of left upper extremity DVT. Landon Robbins MD Objective Remarks General: Elderly male in no acute distress. Heart: Tachycardic, irregular rhythm. 4/6 systolic murmur. Lungs: Clear to auscultation bilaterally. No wheezes, rales, or rhonchi. Breathing is nonlabored. Abdomen: Soft, nontender, nondistended. Extremities: No lower extremity edema. Psych: Alert and oriented. Procedures None Urinary Catheter: No Vascular Central Line Catheter: No A/P Assessment and Plan 1. Atrial fibrillation with RVR: Appreciate cardiology recommendations. Continue metoprolol. Coumadin on hold. INR is therapeutic. Resume coumadin. 2. Near syncope, recurrent falls: Tachyarrhythmia may have contributed to these episodes. Patient also has severe aortic stenosis and debility. 3. Acute on chronic anemia: Likely secondary to GI bleed. Appreciate GI recommendations. Patient has received transfusion of 2 units PRBCs. EGD/ colonoscopy showed pangastritis, duodenitis, colon polyp, diverticulosis. Continue PPI. May need further workup with capsule endoscopy. Repeat labs in AM. 4. Severe aortic stenosis: Patient needs TAVR. Surgery on hold pending dental work. 5. Poor dentition: Patient has multiple decayed teeth. Patient was discharged to SNF with understanding that dental evaluation would be arranged. This did not happen and patient was re-admitted a few days later. No oral surgeon available at this time. Patient requesting transfer to [facility], where he has had prior dental procedures. Case management to assist with arranging transfer if possible. 6. End-stage renal disease on hemodialysis: Management per nephrology. 7. Hypertension: Continue current medications. 8. C. difficile: Continue oral vancomycin (patient has been refusing). 9. Cervical spinal stenosis: Evaluated previously by neurosurgery. 10. DVT prophylaxis: SCDs, Coumadin. 11. Patent foramen ovale: Discussed with CT surgery. Continue anticoagulation. Discussed with the patient's son Elier at bedside. Discharge Planning Case management to assist with discharge/transfer planning. Transfer [place] if patient would be able to have dental work done there in anticipation of cardiac and neurosurgical procedures that are currently on hold. Discussed at length with the patient and his son. González Olivera MD May 03, 2017 14:56
[2017-05-03] MEDS: WARFARIN SOD 1 MG TAB PO SCH (16:32)
[2017-05-04] VITALS (9 sets, daily range): BP systolic 90–107; BP diastolic 46–72; PULSE 86–142; RESP 16–17; TEMP 96.6–98; O2SAT 94–99
[2017-05-04 08:03] LABS: HEMATOCRIT 32.8 % (39.0-51.0); HEMOGLOBIN 10.8 GM/DL (13.0-17.0); MEAN CELL VOLUME 102.6 FL (80.0-100.0); MEAN CORPUSCULAR HEMOGLOBIN 33.8 PG (27.0-34.0); PLATELET COUNT 271 TH/MM3 (150-450); WHITE BLOOD COUNT 9.1 TH/MM3 (4.0-11.0)
[2017-05-04 08:14] LABS: INTERNATIONAL NORMALIZED RATIO 2.2 RATIO; PROTHROMBIN TIME - PATIENT 21.8 SEC (9.8-11.6)
[2017-05-04 08:32] LABS: BICARBONATE 29.6 MEQ/L (21.0-32.0); CALCIUM 8.2 MG/DL (8.5-10.1)
[2017-05-04 08:38] LABS: CREATININE 10.41 MG/DL (0.60-1.30)
[2017-05-04] MEDS: ALLOPURINOL 100 MG TAB PO SCH (09:00)
[2017-05-04] MEDS: PANTOPRAZOLE SOD 40 MG DELAYED RELEASE TAB PO SCH (09:00)
[2017-05-04] MEDS: VANCOMYCIN 500 MG VIAL (FOR ORAL USE ONLY) PO SCH ×4 (09:00→22:44)
[2017-05-04] MEDS: CINACALCET HYDROCHLORIDE 30 MG TAB PO SCH (09:00)
[2017-05-04] MEDS: METOPROLOL TARTRATE 50 MG TAB PO SCH ×2 (09:00→21:00)
[2017-05-04] MEDS: SODIUM CHLORIDE 0.9% FLUSH 10 ML FLUSH IV FLUSH SCH ×2 (09:00→22:44)
[2017-05-04] MEDS: ALBUMIN 25% INJ 100 ML IV PRN ×2 (09:30→09:31)
[2017-05-04] MEDS: EPOETIN ALFA 10,000 UNITS/ML VIAL IV PUSH PRN (10:58)
[2017-05-04] MEDS: WARFARIN SOD 1 MG TAB PO SCH (16:12)
--- NOTE | 2017-05-04 16:14 | HHI.NPPN ---
Subjective General Problems: Anemia, Edema, Hypertension Renal Failure: End Stage Renal Disease History of Present Illness Patient is a very pleasant 76 y/o male with ESRD on hemodialysis on T, Th and Sat, who during hemodialysis he had a syncopl episode and was hypotnesive with SBP in the 70's. He has had recent admission due to fluid overload and found also C Diff positive was reported a melenic stool by EMS HGB at 8.9. Hemocult stool positive. Potassium was elevated at 5.5 at ER. Additional Remarks Patient is alert, seen after HD, no SOB, no dizziness. Review of Systems General General Remarks Resting comfortably, weakness Respiratory Respiratory Remarks Denies SOB Cardiovascular Cardiac: Edema Cardiac Remarks Denies CP, Edema noted in left upper extremity Gastrointestinal GI Remarks Denies abdominal pain Genitourinary Remarks Denies Dysuria Objective Data Data 05/04/17 05/05/17 18:59 06:59 Intake Total 200 ml Output Total 1500 ml Balance -1300 ml IV Total 200 ml Hemodialysis 1500 ml Vital Signs Date Time Temp Pulse Resp B/P (MAP) Pulse Ox O2 Delivery O2 Flow Rate FiO2 05/04/17 15:50 98.0 112 16 98/62 (74) 97 05/04/17 13:53 97.6 86 16 107/46 (66) 96 05/04/17 10:44 114 05/04/17 08:30 97.7 87 16 106/72 (83) 94 05/04/17 04:41 102 05/04/17 04:29 97.0 109 17 105/55 (72) 99 05/04/17 00:00 119 05/03/17 23:41 97.2 112 18 116/70 (85) 98 05/03/17 23:27 97.8 108 18 119/73 (88) 93 05/03/17 20:20 97.4 88 17 89/66 (74) 99 05/03/17 20:00 111 -: 05/04/17 0745 05/04/17 0745 Physical Exam General Appearance: Well Nourished, No Acute Distress, Comfortable Eyes Eye Exam: Pupils Equal Throat Throat Exam: Oral Mucosa [place] & Moist Neck Neck Exam: Neck Supple Pulmonary Resp Exam: Breath Sounds Equal, No Distress Cardiology CV Exam: Normal Sinus Rhythm, Murmur Gastrointestinal/Abdomen GI Exam: Soft, Non-Tender Genitourinary Exam: Flank Non-Tender Integumentary Skin Exam: Clear, Warm Extremeties Extremities Exam: Moderate Edema Neurologic Neuro Exam: Alert, Awake, Oriented, Speech Clear Psychiatric Psych Exam: Appropriate Responses PUD Prophylasis PUD Prophylaxis: Protonix Assessment/Plan Discussed Condition With: Patient Assessment Summary: End Stage Renal Disease Problem List: (1) ESRD (end stage renal disease) on dialysis ICD Codes: N18.6 - End stage renal disease; Z99.2 - Dependence on renal dialysis Plan: continue dialysis TTS. Monitor fluid and electrolytes. Patient need dental work prior ro Neurosurgical and cardiac procedures. HD done in AM and 1.5 liters removed. Tolerated well. Awaiting placement, bottle caser follow up noted. (2) Hypotension ICD Codes: I95.9 - Hypotension, unspecified Status: Acute Plan: Hypotension resolved Tachycardia improved with increased metoprolol. (3) Anemia ICD Codes: D64.9 - Anemia Status: Acute Plan: Epogen 10,000 units after each dialysis (4) C. difficile diarrhea ICD Codes: A04.72 - Enterocolitis due to Clostridium difficile, not specified as recurrent Status: Acute Plan: On vancomycin orally] Loose stools improving (5) GI bleed ICD Codes: K92.2 - Gastrointestinal hemorrhage, unspecified Status: Acute Plan: Stool positive for occult blood No active bleeding GI managing EGD and colonoscopy done Pangastritis, Duodenitis, Colon polyp, and Diverticulosis noted (6) Aortic valvar stenosis ICD Codes: I35.0 - Nonrheumatic aortic (valve) stenosis Plan: TAVR is recommended. Patient needs dental work before procedure. Problem Qualifiers (1) Hypotension: Qualified Codes: I95.9 - Hypotension, unspecified (2) Anemia: (3) GI bleed: Qualified Codes: K92.2 - Gastrointestinal hemorrhage, unspecified Quiana Mayers MD May 04, 2017 16:14
--- NOTE | 2017-05-04 16:49 | HHI.PR ---
Subjective Remarks Follow up C-diff colitis/Afib with rvr/ESRD on HD 05/04/17-patient seen and examined, he had HD today and denies any shortness of breath. Afebrile. States he is looking forward discharge to [facility] Objective Vitals Vital Signs Date Time Temp Pulse Resp B/P (MAP) Pulse Ox O2 Delivery O2 Flow Rate FiO2 05/04/17 15:50 98.0 112 16 98/62 (74) 97 05/04/17 13:53 97.6 86 16 107/46 (66) 96 05/04/17 10:44 114 05/04/17 08:30 97.7 87 16 106/72 (83) 94 05/04/17 04:41 102 05/04/17 04:29 97.0 109 17 105/55 (72) 99 05/04/17 00:00 119 05/03/17 23:41 97.2 112 18 116/70 (85) 98 05/03/17 23:27 97.8 108 18 119/73 (88) 93 05/03/17 20:20 97.4 88 17 89/66 (74) 99 05/03/17 20:00 111 I/O 05/03/17 05/03/17 05/03/17 05/04/17 05/04/17 05/04/17 07:00 15:00 23:00 07:00 15:00 23:00 Intake Total 400 ml 120 ml 200 ml Output Total 1500 ml Balance 400 ml 120 ml -1300 ml Intake Oral 400 ml 120 ml IV Total 200 ml Hemodialysis 1500 ml # Voids 1 # Bowel Movements 2 1 1 Result Diagram: 05/04/17 0745 05/04/17 0745 Imaging Last Impressions Fistulagram 04/23/17 0000 Signed Impressions: Service Date/Time: Sunday, April 23, 2017 12:00 - CONCLUSION: The patient's arteriovenous fistula, venous outflow and central venous structures are widely patent. There is brisk flow through this the swelling in the upper extremity may be related to the high flow through the fistula. Pacheco Mahajan MD Head CT 04/20/17 6095 Signed Impressions: Service Date/Time: Thursday, April 20, 2017 13:56 - CONCLUSION: Normal examination for a patient of this age. Farhan Kasper MD Chest X-Ray 04/20/17 1208 Signed Impressions: Service Date/Time: Thursday, April 20, 2017 13:05 - CONCLUSION: 1. Mild bibasilar opacity likely representing pleural effusions with associated volume loss and/or consolidation. 2. Severe atherosclerotic calcification of the aorta. Landon Marrero MD Upper Extremity Ultrasound 04/20/17 0000 Signed Impressions: Service Date/Time: Thursday, April 20, 2017 17:40 - CONCLUSION: No evidence of left upper extremity DVT. Landon Robbins MD Objective Remarks GENERAL: NAD SKIN: Warm and dry. HEAD: Normocephalic. Mouth: poor dentition EYES: No scleral icterus. No injection or drainage. NECK: Supple, trachea midline. No JVD or lymphadenopathy. CARDIOVASCULAR: Regular rate and rhythm with III/ SARAH RESPIRATORY: Breath sounds equal bilaterally. No accessory muscle use. GASTROINTESTINAL: Abdomen soft, non-tender, nondistended. MUSCULOSKELETAL: No cyanosis, or edema. AVF in left arm BACK: Nontender without obvious deformity. No CVA tenderness. Procedures None A/P Problem List: (1) Atrial fibrillation ICD Code: I48.91 - Unspecified atrial fibrillation (2) End stage renal disease on dialysis ICD Code: N18.6 - End stage renal disease on dialysis; Z99.2 - Dependence on renal dialysis Status: Acute (3) DM2 (diabetes mellitus, type 2) ICD Code: E11.9 - DM2 (diabetes mellitus, type 2) Status: Acute (4) Aortic valvar stenosis ICD Code: I35.0 - Nonrheumatic aortic (valve) stenosis Assessment and Plan Old man with 1. Atrial fibrillation with RVR: Appreciate cardiology recommendations. Continue metoprolol. Currently on Coumadin, monitor INR 2. Near syncope, recurrent falls: Tachyarrhythmia may have contributed to these episodes. Patient also has severe aortic stenosis and debility. 3. Acute on chronic anemia: Likely secondary to GI bleed. Appreciate GI recommendations. Patient has received transfusion of 2 units PRBCs. EGD/ colonoscopy showed pangastritis, duodenitis, colon polyp, diverticulosis. Continue PPI. May need further workup with capsule endoscopy. 4. Severe aortic stenosis: Patient needs TAVR. Surgery on hold pending dental work. 5. Poor dentition: Patient has multiple decayed teeth. Patient will need dental work outpatient 6. End-stage renal disease on hemodialysis: Management per nephrology. 7. Hypertension: Continue current medications. 8. C. difficile: Continue oral vancomycin (patient has been refusing). 9. Cervical spinal stenosis: Evaluated previously by neurosurgery. 10. DVT prophylaxis: SCDs, Coumadin. 11. Patent foramen ovale: Continue anticoagulation. Jeremias Mcmillan MD May 04, 2017 16:48
[2017-05-04] MEDS ORDERED: METOPROLOL TARTRATE 25 MG TAB PO ONE (22:15)
[2017-05-05] VITALS (10 sets, daily range): BP systolic 84–102; BP diastolic 57–71; PULSE 101–121; RESP 16–17; TEMP 97.3–97.7; O2SAT 94–98
[2017-05-05] MEDS ORDERED: METOPROLOL TARTRATE 50 MG TAB PO ONE (01:00)
[2017-05-05 08:48] LABS: INTERNATIONAL NORMALIZED RATIO 2.3 RATIO; PROTHROMBIN TIME - PATIENT 23.5 SEC (9.8-11.6)
[2017-05-05] MEDS: CINACALCET HYDROCHLORIDE 30 MG TAB PO SCH (09:55)
[2017-05-05] MEDS: ALLOPURINOL 100 MG TAB PO SCH (09:55)
[2017-05-05] MEDS: METOPROLOL TARTRATE 50 MG TAB PO SCH ×2 (09:56→21:00)
[2017-05-05] MEDS: SODIUM CHLORIDE 0.9% FLUSH 10 ML FLUSH IV FLUSH SCH ×2 (09:56→21:30)
[2017-05-05] MEDS: PANTOPRAZOLE SOD 40 MG DELAYED RELEASE TAB PO SCH (09:56)
[2017-05-05] MEDS: VANCOMYCIN 500 MG VIAL (FOR ORAL USE ONLY) PO SCH ×4 (09:56→21:30)
--- NOTE | 2017-05-05 11:40 | HHI.PR ---
Subjective Remarks Follow up C-diff colitis/Afib with rvr/ESRD on HD 05/04/17-patient seen and examined, he had HD today and denies any shortness of breath. Afebrile. States he is looking forward discharge to SNF 05/05/17-patient seen and examined, he has not slept overnight. Denies any significant shortness of breath. Objective Vitals Vital Signs Date Time Temp Pulse Resp B/P (MAP) Pulse Ox O2 Delivery O2 Flow Rate FiO2 05/05/17 08:34 97.5 119 17 94/65 (75) 96 05/05/17 08:00 113 05/05/17 04:40 97.6 109 17 88/67 (74) 98 05/05/17 04:11 103 05/05/17 00:02 97.3 121 17 102/71 (81) 95 05/05/17 00:00 119 05/04/17 21:50 96.6 130 17 90/69 (76) 98 05/04/17 20:00 97.0 125 17 96/60 (72) 98 05/04/17 20:00 142 05/04/17 15:50 98.0 112 16 98/62 (74) 97 05/04/17 13:53 97.6 86 16 107/46 (66) 96 I/O 05/04/17 05/04/17 05/04/17 05/05/17 05/05/17 05/05/17 07:00 15:00 23:00 07:00 15:00 23:00 Intake Total 120 ml 200 ml 120 ml Output Total 1500 ml Balance 120 ml -1300 ml 120 ml Intake Oral 120 ml 120 ml IV Total 200 ml Hemodialysis 1500 ml # Bowel Movements 1 1 Result Diagram: 05/04/17 0745 05/04/17 0745 Imaging Last Impressions Fistulagram 04/23/17 0000 Signed Impressions: Service Date/Time: Sunday, April 23, 2017 12:00 - CONCLUSION: The patient's arteriovenous fistula, venous outflow and central venous structures are widely patent. There is brisk flow through this the swelling in the upper extremity may be related to the high flow through the fistula. Pacheco Mahajan MD Head CT 04/20/17 1208 Signed Impressions: Service Date/Time: Thursday, April 20, 2017 13:56 - CONCLUSION: Normal examination for a patient of this age. Farhan Kasper MD Chest X-Ray 04/20/17 1208 Signed Impressions: Service Date/Time: Thursday, April 20, 2017 13:05 - CONCLUSION: 1. Mild bibasilar opacity likely representing pleural effusions with associated volume loss and/or consolidation. 2. Severe atherosclerotic calcification of the aorta. Landon Marrero MD Upper Extremity Ultrasound 04/20/17 0000 Signed Impressions: Service Date/Time: Thursday, April 20, 2017 17:40 - CONCLUSION: No evidence of left upper extremity DVT. Landon Robbins MD Objective Remarks GENERAL: NAD SKIN: Warm and dry. HEAD: Normocephalic. Mouth: poor dentition EYES: No scleral icterus. No injection or drainage. NECK: Supple, trachea midline. No JVD or lymphadenopathy. CARDIOVASCULAR: Regular rate and rhythm with III/ SARAH RESPIRATORY: Breath sounds equal bilaterally. No accessory muscle use. GASTROINTESTINAL: Abdomen soft, non-tender, nondistended. MUSCULOSKELETAL: No cyanosis, or edema. AVF in left arm BACK: Nontender without obvious deformity. No CVA tenderness. Procedures None A/P Problem List: (1) Atrial fibrillation ICD Code: I48.91 - Unspecified atrial fibrillation (2) End stage renal disease on dialysis ICD Code: N18.6 - End stage renal disease on dialysis; Z99.2 - Dependence on renal dialysis Status: Acute (3) DM2 (diabetes mellitus, type 2) ICD Code: E11.9 - DM2 (diabetes mellitus, type 2) Status: Acute (4) Aortic valvar stenosis ICD Code: I35.0 - Nonrheumatic aortic (valve) stenosis Assessment and Plan Old man with 1. Atrial fibrillation with RVR: Appreciate cardiology recommendations. Continue metoprolol. Currently on Coumadin, monitor INR 2. Near syncope, recurrent falls: Tachyarrhythmia may have contributed to these episodes. Patient also has severe aortic stenosis and debility. 3. Acute on chronic anemia: Likely secondary to GI bleed. Appreciate GI recommendations. Patient has received transfusion of 2 units PRBCs. EGD/ colonoscopy showed pangastritis, duodenitis, colon polyp, diverticulosis. Continue PPI. May need further workup with capsule endoscopy. 4. Severe aortic stenosis: Patient needs TAVR. Surgery on hold pending dental work. 5. Poor dentition: Patient has multiple decayed teeth. Patient will need dental work outpatient 6. End-stage renal disease on hemodialysis: Management per nephrology. 7. Hypertension: Continue current medications. 8. C. difficile: Continue oral vancomycin (patient has been refusing). 9. Cervical spinal stenosis: Evaluated previously by neurosurgery. 10. DVT prophylaxis: SCDs, Coumadin. 11. Patent foramen ovale: Continue anticoagulation. Jeremias Mcmillan MD May 05, 2017 11:40
[2017-05-05] MEDS ORDERED: METO-309 PO (12:35)
[2017-05-05] MEDS ORDERED: COUM1TAB PO (12:36)
[2017-05-05] MEDS ORDERED: VANC125C3 PO (12:40)
--- NOTE | 2017-05-05 15:51 | HHI.NPPN ---
Subjective General Problems: Anemia, Edema, Hypertension Renal Failure: End Stage Renal Disease History of Present Illness Patient is a very pleasant 76 y/o male with ESRD on hemodialysis on T, Th and Sat, who during hemodialysis he had a syncopl episode and was hypotnesive with SBP in the 70's. He has had recent admission due to fluid overload and found also C Diff positive was reported a melenic stool by EMS HGB at 8.9. Hemocult stool positive. Potassium was elevated at 5.5 at ER. Additional Remarks Patient is alert and oriented. Patient does not report any problems or concerns. (Prachi Huitron) Review of Systems General General Remarks Resting comfortably, weakness (Prachi Huitron) Respiratory Respiratory Remarks Denies SOB (Prachi Huitron) Cardiovascular Cardiac: Edema Cardiac Remarks Denies CP (Prachi Huitron) Gastrointestinal GI Remarks Denies abdominal pain (Prachi Huitron) Genitourinary Remarks Denies Dysuria (Prachi Huitron) Objective Data Data Vital Signs Date Time Temp Pulse Resp B/P (MAP) Pulse Ox O2 Delivery O2 Flow Rate FiO2 05/05/17 12:34 97.3 107 16 84/57 (66) 94 05/05/17 08:34 97.5 119 17 94/65 (75) 96 05/05/17 08:00 113 05/05/17 04:40 97.6 109 17 88/67 (74) 98 05/05/17 04:11 103 05/05/17 00:02 97.3 121 17 102/71 (81) 95 05/05/17 00:00 119 05/04/17 21:50 96.6 130 17 90/69 (76) 98 05/04/17 20:00 97.0 125 17 96/60 (72) 98 05/04/17 20:00 142 05/04/17 15:50 98.0 112 16 98/62 (74) 97 (Prachi Huitron) -: 05/04/17 0745 05/04/17 0745 Physical Exam General Appearance: Well Nourished, No Acute Distress, Comfortable (Prachi Huitron) Eyes Eye Exam: Pupils Equal (Prachi Huitron) Throat Throat Exam: Oral Mucosa [place] & Moist (Prachi Huitron) Neck Neck Exam: Neck Supple (Prachi Huitron) Pulmonary Resp Exam: Breath Sounds Equal, No Distress (Prachi Huitron) Cardiology CV Exam: Normal Sinus Rhythm, Murmur (Prachi Huitron) Gastrointestinal/Abdomen GI Exam: Soft, Non-Tender (Prachi Huitron) Genitourinary Exam: Flank Non-Tender (Prachi Huitron) Integumentary Skin Exam: Clear, Warm (Prachi Huitron) Extremeties Extremities Exam: Moderate Edema (Prachi Huitron) Neurologic Neuro Exam: Alert, Awake, Oriented, Speech Clear (Prachi Huitron) Psychiatric Psych Exam: Appropriate Responses (Prachi Huitron) PUD Prophylasis PUD Prophylaxis: Protonix (Prachi Huitron) Assessment/Plan Discussed Condition With: Patient Assessment Summary: End Stage Renal Disease Problem List: (1) ESRD (end stage renal disease) on dialysis ICD Codes: N18.6 - End stage renal disease; Z99.2 - Dependence on renal dialysis Plan: continue dialysis TTS. Monitor fluid and electrolytes. Patient need dental work prior ro Neurosurgical and cardiac procedures. Awaiting placement, patient case manager follow up noted. HD in AM (2) Hypotension ICD Codes: I95.9 - Hypotension, unspecified Status: Acute Plan: Hypotension resolved Tachycardia improved with increased metoprolol. (3) Anemia ICD Codes: D64.9 - Anemia Status: Acute Plan: Epogen 10,000 units after each dialysis (4) C. difficile diarrhea ICD Codes: A04.72 - Enterocolitis due to Clostridium difficile, not specified as recurrent Status: Acute Plan: On vancomycin orally] Loose stools improving (5) GI bleed ICD Codes: K92.2 - Gastrointestinal hemorrhage, unspecified Status: Acute Plan: Stool positive for occult blood No active bleeding GI managing EGD and colonoscopy done Pangastritis, Duodenitis, Colon polyp, and Diverticulosis noted (6) Aortic valvar stenosis ICD Codes: I35.0 - Nonrheumatic aortic (valve) stenosis Plan: TAVR is recommended. Patient needs dental work before procedure. (Prachi Huitron) Problem List: (1) ESRD (end stage renal disease) on dialysis ICD Codes: N18.6 - End stage renal disease; Z99.2 - Dependence on renal dialysis Plan: continue dialysis TTS. Monitor fluid and electrolytes. Patient need dental work prior to Neurosurgical and cardiac procedures. Awaiting placement, patient case manager follow up noted. HD in AM. Patient seen and examined, agree with above. Increase Midodrine as BP is low. (2) Hypotension ICD Codes: I95.9 - Hypotension, unspecified Status: Acute Plan: Hypotension resolved Tachycardia improved with increased metoprolol. (3) Anemia ICD Codes: D64.9 - Anemia Status: Acute Plan: Epogen 10,000 units after each dialysis (4) C. difficile diarrhea ICD Codes: A04.72 - Enterocolitis due to Clostridium difficile, not specified as recurrent Status: Acute Plan: On vancomycin orally] Loose stools improving (5) GI bleed ICD Codes: K92.2 - Gastrointestinal hemorrhage, unspecified Status: Acute Plan: Stool positive for occult blood No active bleeding GI managing EGD and colonoscopy done Pangastritis, Duodenitis, Colon polyp, and Diverticulosis noted (6) Aortic valvar stenosis ICD Codes: I35.0 - Nonrheumatic aortic (valve) stenosis Plan: TAVR is recommended. Patient needs dental work before procedure. (Quiana Mayers MD) Problem Qualifiers (1) Hypotension: Qualified Codes: I95.9 - Hypotension, unspecified (2) Anemia: (3) GI bleed: Qualified Codes: K92.2 - Gastrointestinal hemorrhage, unspecified Prachi Huitron May 05, 2017 15:51 Quiana Mayers MD May 05, 2017 18:05
[2017-05-05] MEDS: WARFARIN SOD 1 MG TAB PO SCH (17:39)
[2017-05-05] MEDS: MIDODRINE 5 MG TAB PO SCH (21:30)
[2017-05-06 00:39] VITALS: BP 104/68; PULSE 126; RESP 17; TEMP 97.2; O2SAT 96
[2017-05-06 04:06] VITALS: BP 98/65; PULSE 118; RESP 18; TEMP 97; O2SAT 96
[2017-05-06 05:29] LABS: INTERNATIONAL NORMALIZED RATIO 2.2 RATIO; PROTHROMBIN TIME - PATIENT 22.7 SEC (9.8-11.6)
[2017-05-06 08:00] VITALS: BP 96/69; PULSE 103; PULSE 124; RESP 16; TEMP 97; O2SAT 95
[2017-05-06] MEDS: MIDODRINE 5 MG TAB PO SCH ×2 (08:09→20:41)
[2017-05-06] MEDS: METOPROLOL TARTRATE 50 MG TAB PO SCH ×2 (08:09→20:44)
[2017-05-06] MEDS: VANCOMYCIN 500 MG VIAL (FOR ORAL USE ONLY) PO SCH ×4 (08:09→20:42)
[2017-05-06] MEDS: CINACALCET HYDROCHLORIDE 30 MG TAB PO SCH (08:09)
[2017-05-06] MEDS: ALLOPURINOL 100 MG TAB PO SCH (08:09)
[2017-05-06] MEDS: SODIUM CHLORIDE 0.9% FLUSH 10 ML FLUSH IV FLUSH SCH ×2 (08:09→20:44)
[2017-05-06] MEDS: PANTOPRAZOLE SOD 40 MG DELAYED RELEASE TAB PO SCH (08:09)
[2017-05-06] MEDS: GELATIN 12 MM/7 MM FOAM TOP PRN (11:17)
[2017-05-06 12:00] VITALS: BP 109/73; PULSE 109; RESP 18; TEMP 97.6; O2SAT 18
--- NOTE | 2017-05-06 12:06 | HHI.NPPN ---
Subjective General Problems: Anemia, Edema, Hypertension Renal Failure: End Stage Renal Disease History of Present Illness Patient is a very pleasant 76 y/o male with ESRD on hemodialysis on T, Th and Sat, who during hemodialysis he had a syncopl episode and was hypotnesive with SBP in the 70's. He has had recent admission due to fluid overload and found also C Diff positive was reported a melenic stool by EMS HGB at 8.9. Hemocult stool positive. Potassium was elevated at 5.5 at ER. Additional Remarks Patient is alert and oriented. Patient does not report any problems or concerns. Seen during dialysis. (Prachi Huitron) Review of Systems General General Remarks Resting comfortably, weakness (Prachi Huitron) Respiratory Respiratory Remarks Denies SOB (Prachi Huitron) Cardiovascular Cardiac: Edema Cardiac Remarks Denies CP (Prachi Huitron) Gastrointestinal GI Remarks Denies abdominal pain (Prachi Huitron) Genitourinary Remarks Denies Dysuria (Prachi Huitron) Objective Data Data 05/06/17 05/07/17 19:00 07:00 Output Total 1000 ml Balance -1000 ml Hemodialysis 1000 ml Vital Signs Date Time Temp Pulse Resp B/P (MAP) Pulse Ox O2 Delivery O2 Flow Rate FiO2 05/06/17 08:00 97.0 103 16 96/69 (78) 95 05/06/17 08:00 124 05/06/17 04:06 97.0 118 18 98/65 (76) 96 05/06/17 00:39 97.2 126 17 104/68 (80) 96 05/05/17 20:50 97.7 101 17 85/67 (73) 96 05/05/17 20:30 101 05/05/17 16:18 97.4 103 16 92/68 (76) 97 05/05/17 12:34 97.3 107 16 84/57 (66) 94 (Prachi Huitron) -: 05/04/17 0745 05/04/17 0745 Physical Exam General Appearance: Well Nourished, No Acute Distress, Comfortable (Prachi Huitron) Eyes Eye Exam: Pupils Equal (Prachi Huitron) Throat Throat Exam: Oral Mucosa [place] & Moist (Prachi HuitronP) Neck Neck Exam: Neck Supple (Prachi Huitron) Pulmonary Resp Exam: Breath Sounds Equal, No Distress (Prachi HuitronP) Cardiology CV Exam: Normal Sinus Rhythm, Murmur (Prachi HuitronP) Gastrointestinal/Abdomen GI Exam: Soft, Non-Tender (Prachi HuitronP) Genitourinary Exam: Flank Non-Tender (Prachi Huitron) Integumentary Skin Exam: Clear, Warm (Prachi Huitron) Extremeties Extremities Exam: Moderate Edema (Prachi Huitron) Neurologic Neuro Exam: Alert, Awake, Oriented, Speech Clear (Prachi Huitron) Psychiatric Psych Exam: Appropriate Responses (Prachi Huitron) PUD Prophylasis PUD Prophylaxis: Protonix (Prachi Huitron) Assessment/Plan Discussed Condition With: Patient Assessment Summary: End Stage Renal Disease Problem List: (1) ESRD (end stage renal disease) on dialysis ICD Codes: N18.6 - End stage renal disease; Z99.2 - Dependence on renal dialysis Plan: continue dialysis TTS. Monitor fluid and electrolytes. Patient need dental work prior to Neurosurgical and cardiac procedures. Awaiting placement, immigration case manager follow up noted. On Midodrine as BP is low BID Seen during dialysis tolerated well (2) Hypotension ICD Codes: I95.9 - Hypotension, unspecified Status: Acute Plan: Hypotension resolved Tachycardia improved with increased metoprolol. (3) Anemia ICD Codes: D64.9 - Anemia Status: Acute Plan: Epogen 10,000 units after each dialysis (4) C. difficile diarrhea ICD Codes: A04.72 - Enterocolitis due to Clostridium difficile, not specified as recurrent Status: Acute Plan: On vancomycin orally] Loose stools improving (5) GI bleed ICD Codes: K92.2 - Gastrointestinal hemorrhage, unspecified Status: Acute Plan: Stool positive for occult blood No active bleeding GI managing EGD and colonoscopy done Pangastritis, Duodenitis, Colon polyp, and Diverticulosis noted (6) Aortic valvar stenosis ICD Codes: I35.0 - Nonrheumatic aortic (valve) stenosis Plan: TAVR is recommended. Patient needs dental work before procedure. (Prachi Huitron) Problem List: (1) ESRD (end stage renal disease) on dialysis ICD Codes: N18.6 - End stage renal disease; Z99.2 - Dependence on renal dialysis Plan: continue dialysis TTS. Monitor fluid and electrolytes. Patient need dental work prior to Neurosurgical and cardiac procedures. Awaiting placement, immigration case manager follow up noted. On Midodrine as BP is low BID Seen during dialysis tolerated well. Patient seen, examined and agree with above. (2) Hypotension ICD Codes: I95.9 - Hypotension, unspecified Status: Acute Plan: Hypotension resolved Tachycardia improved with increased metoprolol. (3) Anemia ICD Codes: D64.9 - Anemia Status: Acute Plan: Epogen 10,000 units after each dialysis (4) C. difficile diarrhea ICD Codes: A04.72 - Enterocolitis due to Clostridium difficile, not specified as recurrent Status: Acute Plan: On vancomycin orally] Loose stools improving (5) GI bleed ICD Codes: K92.2 - Gastrointestinal hemorrhage, unspecified Status: Acute Plan: Stool positive for occult blood No active bleeding GI managing EGD and colonoscopy done Pangastritis, Duodenitis, Colon polyp, and Diverticulosis noted (6) Aortic valvar stenosis ICD Codes: I35.0 - Nonrheumatic aortic (valve) stenosis Plan: TAVR is recommended. Patient needs dental work before procedure. (Quiana Mayers MD) Problem Qualifiers (1) Hypotension: Qualified Codes: I95.9 - Hypotension, unspecified (2) Anemia: (3) GI bleed: Qualified Codes: K92.2 - Gastrointestinal hemorrhage, unspecified Prachi Huitron May 06, 2017 12:06 Quiana Mayers MD May 06, 2017 17:33
--- NOTE | 2017-05-06 12:51 | HHI.PR ---
Subjective Remarks Follow up C-diff colitis/Afib with rvr/ESRD on HD 05/04/17-patient seen and examined, he had HD today and denies any shortness of breath. Afebrile. States he is looking forward discharge to SNF 05/05/17-patient seen and examined, he has not slept overnight. Denies any significant shortness of breath. 05/06/17-patient seen and examined, he had hemodialysis today, stable and denies any shortness of breath. Currently afebrile. Objective Vitals Vital Signs Date Time Temp Pulse Resp B/P (MAP) Pulse Ox O2 Delivery O2 Flow Rate FiO2 05/06/17 08:00 97.0 103 16 96/69 (78) 95 05/06/17 08:00 124 05/06/17 04:06 97.0 118 18 98/65 (76) 96 05/06/17 00:39 97.2 126 17 104/68 (80) 96 05/05/17 20:50 97.7 101 17 85/67 (73) 96 05/05/17 20:30 101 05/05/17 16:18 97.4 103 16 92/68 (76) 97 I/O 05/05/17 05/05/17 05/05/17 05/06/17 05/06/17 05/06/17 07:00 15:00 23:00 07:00 15:00 23:00 Intake Total 120 ml 240 ml 240 ml Output Total 1000 ml Balance 120 ml 240 ml 240 ml -1000 ml Intake Oral 120 ml 240 ml 240 ml Hemodialysis 1000 ml # Bowel Movements 1 1 Result Diagram: 05/04/17 0745 05/04/17 0745 Objective Remarks GENERAL: NAD SKIN: Warm and dry. HEAD: Normocephalic. Mouth: poor dentition EYES: No scleral icterus. No injection or drainage. NECK: Supple, trachea midline. No JVD or lymphadenopathy. CARDIOVASCULAR: Regular rate and rhythm with III/ SARAH RESPIRATORY: Breath sounds equal bilaterally. No accessory muscle use. GASTROINTESTINAL: Abdomen soft, non-tender, nondistended. MUSCULOSKELETAL: No cyanosis, or edema. AVF in left arm BACK: Nontender without obvious deformity. No CVA tenderness. Procedures None A/P Problem List: (1) Atrial fibrillation ICD Code: I48.91 - Unspecified atrial fibrillation (2) End stage renal disease on dialysis ICD Code: N18.6 - End stage renal disease on dialysis; Z99.2 - Dependence on renal dialysis Status: Acute (3) DM2 (diabetes mellitus, type 2) ICD Code: E11.9 - DM2 (diabetes mellitus, type 2) Status: Acute (4) Aortic valvar stenosis ICD Code: I35.0 - Nonrheumatic aortic (valve) stenosis Assessment and Plan Old man with 1. Atrial fibrillation with RVR: Appreciate cardiology recommendations. Continue metoprolol. Currently on Coumadin, monitor INR 2. Near syncope, recurrent falls: Tachyarrhythmia may have contributed to these episodes. Patient also has severe aortic stenosis and debility. 3. Acute on chronic anemia: Likely secondary to GI bleed. Appreciate GI recommendations. Patient has received transfusion of 2 units PRBCs. EGD/ colonoscopy showed pangastritis, duodenitis, colon polyp, diverticulosis. Continue PPI. May need further workup with capsule endoscopy. 4. Severe aortic stenosis: Patient needs TAVR. Surgery on hold pending dental work. 5. Poor dentition: Patient has multiple decayed teeth. Patient will need dental work outpatient 6. End-stage renal disease on hemodialysis: Management per nephrology. He had hemodialysis today 05/06/17 7. Hypertension: Continue current medications. 8. C. difficile: Continue oral vancomycin (patient has been refusing). 9. Cervical spinal stenosis: Evaluated previously by neurosurgery. 10. DVT prophylaxis: SCDs, Coumadin. 11. Patent foramen ovale: Continue anticoagulation. Jeremias Mcmillan MD May 06, 2017 12:51
--- NOTE | 2017-05-06 12:56 | HHI.FF ---
Face to Face Verification Diagnosis: (1) End stage renal disease on dialysis (2) Aortic valvar stenosis Physical Therapy Order: Evaluate and Treat Home Health Nursing Order: Signs/symptoms of disease process I have seen patient Alvaro Young on 05/06/17. My clinical findings support the need for the requested home health care services because: Deconditioned w/ increased weakness I certify that my clinical findings support that this patient is homebound because: Poor cardiac reserve Jeremias Mcmillan MD May 06, 2017 12:56
[2017-05-06 16:00] VITALS: BP 98/72; PULSE 102; RESP 18; TEMP 97.6; O2SAT 99
[2017-05-06] MEDS: WARFARIN SOD 1 MG TAB PO SCH (16:44)
[2017-05-06 20:00] VITALS: BP 132/84; PULSE 135; PULSE 148; RESP 20; TEMP 97.3; O2SAT 99
[2017-05-06] MEDS: ZOLPIDEM TARTRATE 5 MG TAB PO PRN (20:41)
[2017-05-06] MEDS: ACETAMINOPHEN 325 MG TAB PO PRN (20:42)
[2017-05-07] VITALS (7 sets, daily range): BP systolic 92–127; BP diastolic 60–92; PULSE 82–135; RESP 18–20; TEMP 97.3–98.1; O2SAT 92–99
[2017-05-07 06:27] LABS: INTERNATIONAL NORMALIZED RATIO 3.1 RATIO; PROTHROMBIN TIME - PATIENT 31.1 SEC (9.8-11.6)
[2017-05-07] MEDS: METOPROLOL TARTRATE 50 MG TAB PO SCH ×2 (09:00→21:07)
[2017-05-07] MEDS: VANCOMYCIN 500 MG VIAL (FOR ORAL USE ONLY) PO SCH ×4 (09:50→21:04)
[2017-05-07] MEDS: ALLOPURINOL 100 MG TAB PO SCH (09:50)
[2017-05-07] MEDS: CINACALCET HYDROCHLORIDE 30 MG TAB PO SCH (09:50)
--- NOTE | 2017-05-07 09:50 | HHI.NPPN ---
Subjective General Problems: Anemia, Edema, Hypertension Renal Failure: End Stage Renal Disease History of Present Illness Patient is a very pleasant 76 y/o male with ESRD on hemodialysis on T, Th and Wed, who during hemodialysis he had a syncopl episode and was hypotnesive with SBP in the 70's. He has had recent admission due to fluid overload and found also C Diff positive was reported a melenic stool by EMS HGB at 8.9. Hemocult stool positive. Potassium was elevated at 5.5 at ER. Additional Remarks Patient is alert and oriented. Patient does not report any problems or concerns. Denies any SOB, no edema (Prachi Huitron) Review of Systems General General Remarks Resting comfortably, weakness (Prachi Huitron) Respiratory Respiratory Remarks Denies SOB (Prachi Huitron) Cardiovascular Cardiac Remarks Denies CP (Prachi Huitron) Gastrointestinal GI Remarks Denies abdominal pain (Prachi Huitron) Genitourinary Remarks Denies Dysuria (Prachi Huitron) Objective Data Data Vital Signs Date Time Temp Pulse Resp B/P (MAP) Pulse Ox O2 Delivery O2 Flow Rate FiO2 05/07/17 09:24 97.6 82 20 97/70 (79) 92 05/07/17 04:00 98.0 107 18 92/60 (71) 98 05/07/17 04:00 114 05/07/17 00:00 97.3 135 20 127/92 (104) 99 05/06/17 20:00 97.3 135 20 132/84 (100) 99 05/06/17 20:00 148 05/06/17 16:00 97.6 102 18 98/72 (81) 99 05/06/17 12:00 97.6 109 18 109/73 (85) 18 (Prachi Huitron) -: 05/04/17 0745 05/04/17 0745 Physical Exam General Appearance: Well Nourished, No Acute Distress, Comfortable (Prachi Huitron) Eyes Eye Exam: Pupils Equal (Prachi Huitron) Throat Throat Exam: Oral Mucosa [place] & Moist (Prachi Huitron) Neck Neck Exam: Neck Supple (Prachi Huitron) Pulmonary Resp Exam: Breath Sounds Equal, No Distress (Prachi Huitron) Cardiology CV Exam: Normal Sinus Rhythm, Murmur (Prachi Huitron) Gastrointestinal/Abdomen GI Exam: Soft, Non-Tender (Prachi Huitron) Genitourinary Exam: Flank Non-Tender (Prachi Huitron) Integumentary Skin Exam: Clear, Warm (Prachi Huitron) Extremeties Extremities Exam: Moderate Edema (Prachi Huitron) Neurologic Neuro Exam: Alert, Awake, Oriented, Speech Clear (Prachi Huitron) Psychiatric Psych Exam: Appropriate Responses (Prachi Huitron) PUD Prophylasis PUD Prophylaxis: Protonix (Prachi Huitron) Assessment/Plan Discussed Condition With: Patient Assessment Summary: End Stage Renal Disease Problem List: (1) ESRD (end stage renal disease) on dialysis ICD Codes: N18.6 - End stage renal disease; Z99.2 - Dependence on renal dialysis Plan: continue dialysis TTS. Monitor fluid and electrolytes. Patient need dental work prior to Neurosurgical and cardiac procedures. Awaiting placement, case briefer follow up noted. Has agreed to work with PT today On Midodrine as BP is low BID Tolerated dialysis well yesterday. 1 liter removed (2) Hypotension ICD Codes: I95.9 - Hypotension, unspecified Status: Acute Plan: Hypotension resolved Tachycardia improved with increased metoprolol. (3) Anemia ICD Codes: D64.9 - Anemia Status: Acute Plan: Epogen 10,000 units after each dialysis (4) C. difficile diarrhea ICD Codes: A04.72 - Enterocolitis due to Clostridium difficile, not specified as recurrent Status: Acute Plan: On vancomycin orally] Loose stools improving (5) GI bleed ICD Codes: K92.2 - Gastrointestinal hemorrhage, unspecified Status: Acute Plan: Stool positive for occult blood No active bleeding GI managing EGD and colonoscopy done Pangastritis, Duodenitis, Colon polyp, and Diverticulosis noted (6) Aortic valvar stenosis ICD Codes: I35.0 - Nonrheumatic aortic (valve) stenosis Plan: TAVR is recommended. Patient needs dental work before procedure. (Prachi Huitron) Problem List: (1) ESRD (end stage renal disease) on dialysis ICD Codes: N18.6 - End stage renal disease; Z99.2 - Dependence on renal dialysis Plan: continue dialysis TTS. Monitor fluid and electrolytes. Patient need dental work prior to Neurosurgical and cardiac procedures. Awaiting placement, case briefer follow up noted. Has agreed to work with PT today On Midodrine as BP is low BID Tolerated dialysis well yesterday. 1 liter removed. Patient seen and examined, agree with above. HD again in AM, Check Po4 level. (2) Hypotension ICD Codes: I95.9 - Hypotension, unspecified Status: Acute Plan: Hypotension resolved Tachycardia improved with increased metoprolol. (3) Anemia ICD Codes: D64.9 - Anemia Status: Acute Plan: Epogen 10,000 units after each dialysis (4) C. difficile diarrhea ICD Codes: A04.72 - Enterocolitis due to Clostridium difficile, not specified as recurrent Status: Acute Plan: On vancomycin orally] Loose stools improving (5) GI bleed ICD Codes: K92.2 - Gastrointestinal hemorrhage, unspecified Status: Acute Plan: Stool positive for occult blood No active bleeding GI managing EGD and colonoscopy done Pangastritis, Duodenitis, Colon polyp, and Diverticulosis noted (6) Aortic valvar stenosis ICD Codes: I35.0 - Nonrheumatic aortic (valve) stenosis Plan: TAVR is recommended. Patient needs dental work before procedure. (Quiana Mayers MD) Problem Qualifiers (1) Hypotension: Qualified Codes: I95.9 - Hypotension, unspecified (2) Anemia: (3) GI bleed: Qualified Codes: K92.2 - Gastrointestinal hemorrhage, unspecified Prachi Huitron May 07, 2017 09:50 Quiana Mayers MD May 07, 2017 15:50
[2017-05-07] MEDS: MIDODRINE 5 MG TAB PO SCH ×2 (09:53→21:07)
[2017-05-07] MEDS: SODIUM CHLORIDE 0.9% FLUSH 10 ML FLUSH IV FLUSH SCH ×2 (09:53→21:08)
[2017-05-07] MEDS: PANTOPRAZOLE SOD 40 MG DELAYED RELEASE TAB PO SCH (09:53)
--- NOTE | 2017-05-07 11:06 | HHI.PR ---
Subjective Remarks Follow up C-diff colitis/Afib with rvr/ESRD on HD 05/04/17-patient seen and examined, he had HD today and denies any shortness of breath. Afebrile. States he is looking forward discharge to SNF 05/05/17-patient seen and examined, he has not slept overnight. Denies any significant shortness of breath. 05/06/17-patient seen and examined, he had hemodialysis today, stable and denies any shortness of breath. Currently afebrile. 05/07/17-patient seen and examined, stable today , states his son goes to work all day long; no other issue Objective Vitals Vital Signs Date Time Temp Pulse Resp B/P (MAP) Pulse Ox O2 Delivery O2 Flow Rate FiO2 05/07/17 09:24 97.6 82 20 97/70 (79) 92 05/07/17 04:00 98.0 107 18 92/60 (71) 98 05/07/17 04:00 114 05/07/17 00:00 97.3 135 20 127/92 (104) 99 05/06/17 20:00 97.3 135 20 132/84 (100) 99 05/06/17 20:00 148 05/06/17 16:00 97.6 102 18 98/72 (81) 99 05/06/17 12:00 97.6 109 18 109/73 (85) 18 I/O 05/06/17 05/06/17 05/06/17 05/07/17 05/07/17 05/07/17 07:00 15:00 23:00 07:00 15:00 23:00 Intake Total 240 ml Output Total 1000 ml 950 ml Balance 240 ml -1000 ml -950 ml Intake Oral 240 ml Output Urine Total 950 ml Hemodialysis 1000 ml # Bowel Movements 1 1 1 1 Result Diagram: 05/04/17 0745 05/04/17 0745 Objective Remarks GENERAL: NAD SKIN: Warm and dry. HEAD: Normocephalic. Mouth: poor dentition EYES: No scleral icterus. No injection or drainage. NECK: Supple, trachea midline. No JVD or lymphadenopathy. CARDIOVASCULAR: Regular rate and rhythm with III/ SARAH RESPIRATORY: Breath sounds equal bilaterally. No accessory muscle use. GASTROINTESTINAL: Abdomen soft, non-tender, nondistended. MUSCULOSKELETAL: No cyanosis, or edema. AVF in left arm BACK: Nontender without obvious deformity. No CVA tenderness. Procedures None A/P Problem List: (1) Atrial fibrillation ICD Code: I48.91 - Unspecified atrial fibrillation (2) End stage renal disease on dialysis ICD Code: N18.6 - End stage renal disease on dialysis; Z99.2 - Dependence on renal dialysis Status: Acute (3) DM2 (diabetes mellitus, type 2) ICD Code: E11.9 - DM2 (diabetes mellitus, type 2) Status: Acute (4) Aortic valvar stenosis ICD Code: I35.0 - Nonrheumatic aortic (valve) stenosis Assessment and Plan 76 years man with 1. Atrial fibrillation with RVR: Appreciate cardiology recommendations. Continue metoprolol. Currently on Coumadin, monitor INR 2. Near syncope, recurrent falls: Tachyarrhythmia may have contributed to these episodes. Patient also has severe aortic stenosis and debility. 3. Acute on chronic anemia: Likely secondary to GI bleed. Appreciate GI recommendations. Patient has received transfusion of 2 units PRBCs. EGD/ colonoscopy showed pangastritis, duodenitis, colon polyp, diverticulosis. Continue PPI. May need further workup with capsule endoscopy. 4. Severe aortic stenosis: Patient needs TAVR. Surgery on hold pending dental work. 5. Poor dentition: Patient has multiple decayed teeth. Patient will need dental work outpatient 6. End-stage renal disease on hemodialysis: Management per nephrology. He had hemodialysis yesterday 05/06/17 7. Hypertension: Continue current medications. 8. C. difficile: Continue oral vancomycin (patient has been refusing). 9. Cervical spinal stenosis: Evaluated previously by neurosurgery. 10. DVT prophylaxis: SCDs, Coumadin. 11. Patent foramen ovale: Continue anticoagulation. Jeremias Mcmillan MD May 07, 2017 11:05
[2017-05-07] MEDS: ACETAMINOPHEN 325 MG TAB PO PRN (21:06)
[2017-05-07] MEDS: ZOLPIDEM TARTRATE 5 MG TAB PO PRN (21:06)
[2017-05-08] VITALS (9 sets, daily range): BP systolic 91–140; BP diastolic 60–85; PULSE 78–148; RESP 16–20; TEMP 96.3–98.1; O2SAT 95–97
[2017-05-08 07:11] LABS: INTERNATIONAL NORMALIZED RATIO 2.8 RATIO; PROTHROMBIN TIME - PATIENT 28.1 SEC (9.8-11.6)
[2017-05-08] MEDS: MIDODRINE 5 MG TAB PO SCH ×2 (08:13→21:00)
[2017-05-08] MEDS: CINACALCET HYDROCHLORIDE 30 MG TAB PO SCH (08:13)
[2017-05-08] MEDS: METOPROLOL TARTRATE 50 MG TAB PO SCH ×3 (08:13→21:53)
[2017-05-08] MEDS: SODIUM CHLORIDE 0.9% FLUSH 10 ML FLUSH IV FLUSH SCH ×2 (08:13→21:53)
[2017-05-08] MEDS: ALLOPURINOL 100 MG TAB PO SCH (08:14)
[2017-05-08] MEDS: PANTOPRAZOLE SOD 40 MG DELAYED RELEASE TAB PO SCH (08:14)
[2017-05-08] MEDS: VANCOMYCIN 500 MG VIAL (FOR ORAL USE ONLY) PO SCH ×4 (08:15→21:54)
--- NOTE | 2017-05-08 10:03 | HHI.PR ---
Subjective Remarks Follow up C-diff colitis/Afib with rvr/ESRD on HD 05/04/17-patient seen and examined, he had HD today and denies any shortness of breath. Afebrile. States he is looking forward discharge to SNF 05/05/17-patient seen and examined, he has not slept overnight. Denies any significant shortness of breath. 05/06/17-patient seen and examined, he had hemodialysis today, stable and denies any shortness of breath. Currently afebrile. 05/07/17-patient seen and examined, stable today , states his son goes to work all day long; no other issue 05/08/17-patient seen and examined, plan for hemodialysis today, no issues overnight and stable. Objective Vitals Vital Signs Date Time Temp Pulse Resp B/P (MAP) Pulse Ox O2 Delivery O2 Flow Rate FiO2 05/08/17 08:33 143 05/08/17 08:00 96.3 109 16 117/74 (88) 97 05/08/17 04:00 97.3 148 20 140/83 (102) 95 05/08/17 04:00 126 05/08/17 00:00 122 05/08/17 00:00 97.6 78 18 105/68 (80) 96 05/07/17 20:58 97.8 106 18 98/68 (78) 94 05/07/17 20:00 123 05/07/17 15:53 97.7 96 20 105/61 (76) 94 05/07/17 11:24 98.1 97 20 104/65 (78) 95 I/O 05/07/17 05/07/17 05/07/17 05/08/17 05/08/17 05/08/17 07:00 15:00 23:00 07:00 15:00 23:00 Intake Total 480 ml Output Total 950 ml Balance -950 ml 480 ml Intake Oral 480 ml Output Urine Total 950 ml # Voids 3 4 # Bowel Movements 1 0 4 Result Diagram: 05/04/1745 05/04/17 0745 Objective Remarks GENERAL: NAD SKIN: Warm and dry. HEAD: Normocephalic. Mouth: poor dentition EYES: No scleral icterus. No injection or drainage. NECK: Supple, trachea midline. No JVD or lymphadenopathy. CARDIOVASCULAR: Regular rate and rhythm with III/ SARAH RESPIRATORY: Breath sounds equal bilaterally. No accessory muscle use. GASTROINTESTINAL: Abdomen soft, non-tender, nondistended. MUSCULOSKELETAL: No cyanosis, or edema. AVF in left arm BACK: Nontender without obvious deformity. No CVA tenderness. Procedures None A/P Problem List: (1) Atrial fibrillation ICD Code: I48.91 - Unspecified atrial fibrillation (2) End stage renal disease on dialysis ICD Code: N18.6 - End stage renal disease on dialysis; Z99.2 - Dependence on renal dialysis Status: Acute (3) DM2 (diabetes mellitus, type 2) ICD Code: E11.9 - DM2 (diabetes mellitus, type 2) Status: Acute (4) Aortic valvar stenosis ICD Code: I35.0 - Nonrheumatic aortic (valve) stenosis Assessment and Plan 76 years man with 1. Atrial fibrillation with RVR: Appreciate cardiology recommendations. Continue metoprolol. Currently on Coumadin, monitor INR/PT 2. Near syncope, recurrent falls: Tachyarrhythmia may have contributed to these episodes. Patient also has severe aortic stenosis and debility. 3. Acute on chronic anemia: Likely secondary to GI bleed. Appreciate GI recommendations. Patient has received transfusion of 2 units PRBCs. EGD/ colonoscopy showed pangastritis, duodenitis, colon polyp, diverticulosis. Continue PPI. May need further workup with capsule endoscopy. 4. Severe aortic stenosis: Patient needs TAVR. Surgery on hold pending dental work. 5. Poor dentition: Patient has multiple decayed teeth. Patient will need dental work outpatient 6. End-stage renal disease on hemodialysis: Management per nephrology. Hemodialysis 7. Hypertension: Continue current medications. 8. C. difficile: Continue oral vancomycin (patient has been refusing). 9. Cervical spinal stenosis: Evaluated previously by neurosurgery. 10. DVT prophylaxis: SCDs, Coumadin. 11. Patent foramen ovale: Continue anticoagulation. Discharge Planning Awaiting for discharge disposition to [facility] Jeremias Mcmillan MD May 08, 2017 10:03
[2017-05-08] MEDS: EPOETIN ALFA 10,000 UNITS/ML VIAL IV PUSH PRN (16:18)
--- NOTE | 2017-05-08 19:57 | HHI.NPPN ---
Subjective General Problems: Anemia, Edema, Hypertension Renal Failure: End Stage Renal Disease History of Present Illness Patient is a very pleasant 76 y/o male with ESRD on hemodialysis on T, Th and Sat, who during hemodialysis he had a syncopl episode and was hypotnesive with SBP in the 70's. He has had recent admission due to fluid overload and found also C Diff positive was reported a melenic stool by EMS HGB at 8.9. Hemocult stool positive. Potassium was elevated at 5.5 at ER. Additional Remarks Patient is alert and oriented. Patient does not report any problems or concerns. Denies any SOB, no edema Review of Systems General General Remarks Resting comfortably, weakness Respiratory Respiratory Remarks Denies SOB Cardiovascular Cardiac Remarks Denies CP Gastrointestinal GI Remarks Denies abdominal pain Genitourinary Remarks Denies Dysuria Objective Data Data 05/08/17 05/09/17 19:00 07:00 Output Total 1000 ml Balance -1000 ml Hemodialysis 1000 ml Vital Signs Date Time Temp Pulse Resp B/P (MAP) Pulse Ox O2 Delivery O2 Flow Rate FiO2 05/08/17 16:00 98.1 86 18 91/60 (70) 96 05/08/17 12:04 106 05/08/17 08:33 143 05/08/17 08:00 96.3 109 16 117/74 (88) 97 05/08/17 04:00 97.3 148 20 140/83 (102) 95 05/08/17 04:00 126 05/08/17 00:00 122 05/08/17 00:00 97.6 78 18 105/68 (80) 96 05/07/17 20:58 97.8 106 18 98/68 (78) 94 05/07/17 20:00 123 -: 05/04/17 0745 05/04/17 0745 Physical Exam General Appearance: Well Nourished, No Acute Distress, Comfortable Eyes Eye Exam: Pupils Equal Throat Throat Exam: Oral Mucosa [place] & Moist Neck Neck Exam: Neck Supple Pulmonary Resp Exam: Breath Sounds Equal, No Distress Cardiology CV Exam: Normal Sinus Rhythm, Murmur Gastrointestinal/Abdomen GI Exam: Soft, Non-Tender Genitourinary Exam: Flank Non-Tender Integumentary Skin Exam: Clear, Warm Extremeties Extremities Exam: Moderate Edema Neurologic Neuro Exam: Alert, Awake, Oriented, Speech Clear Psychiatric Psych Exam: Appropriate Responses PUD Prophylasis PUD Prophylaxis: Protonix Assessment/Plan Discussed Condition With: Patient Assessment Summary: End Stage Renal Disease Problem List: (1) ESRD (end stage renal disease) on dialysis ICD Codes: N18.6 - End stage renal disease; Z99.2 - Dependence on renal dialysis Plan: continue dialysis TTS. Monitor fluid and electrolytes. Patient need dental work prior to Neurosurgical and cardiac procedures. Awaiting placement, foster care case manager follow up noted. Has agreed to work with PT today On Midodrine as BP is low BID seen during dialysis UF 1 L BP lower side but stable (2) Hypotension ICD Codes: I95.9 - Hypotension, unspecified Status: Acute Plan: Hypotension resolved Tachycardia improved with increased metoprolol. (3) Anemia ICD Codes: D64.9 - Anemia Status: Acute Plan: Epogen 10,000 units after each dialysis (4) C. difficile diarrhea ICD Codes: A04.72 - Enterocolitis due to Clostridium difficile, not specified as recurrent Status: Acute Plan: On vancomycin orally] Loose stools improving (5) GI bleed ICD Codes: K92.2 - Gastrointestinal hemorrhage, unspecified Status: Acute Plan: Stool positive for occult blood No active bleeding GI managing EGD and colonoscopy done Pangastritis, Duodenitis, Colon polyp, and Diverticulosis noted (6) Aortic valvar stenosis ICD Codes: I35.0 - Nonrheumatic aortic (valve) stenosis Plan: TAVR is recommended. Patient needs dental work before procedure. Problem Qualifiers (1) Hypotension: Qualified Codes: I95.9 - Hypotension, unspecified (2) Anemia: (3) GI bleed: Qualified Codes: K92.2 - Gastrointestinal hemorrhage, unspecified Jose Martin Guerrier MD May 08, 2017 19:57
[2017-05-08] MEDS: ZOLPIDEM TARTRATE 5 MG TAB PO PRN (21:53)
[2017-05-09] VITALS (12 sets, daily range): BP systolic 86–125; BP diastolic 61–74; PULSE 81–138; RESP 17–19; TEMP 95.7–97.8; O2SAT 94–97
[2017-05-09 06:21] LABS: INTERNATIONAL NORMALIZED RATIO 2.8 RATIO; PROTHROMBIN TIME - PATIENT 28.2 SEC (9.8-11.6)
[2017-05-09] MEDS: METOPROLOL TARTRATE 50 MG TAB PO SCH ×3 (09:00→21:00)
[2017-05-09] MEDS: PANTOPRAZOLE SOD 40 MG DELAYED RELEASE TAB PO SCH (09:02)
[2017-05-09] MEDS: VANCOMYCIN 500 MG VIAL (FOR ORAL USE ONLY) PO SCH ×4 (09:02→21:14)
[2017-05-09] MEDS: MIDODRINE 5 MG TAB PO SCH ×2 (09:02→21:14)
[2017-05-09] MEDS: SODIUM CHLORIDE 0.9% FLUSH 10 ML FLUSH IV FLUSH SCH ×2 (09:03→21:18)
[2017-05-09] MEDS: CINACALCET HYDROCHLORIDE 30 MG TAB PO SCH (09:03)
[2017-05-09] MEDS: ALLOPURINOL 100 MG TAB PO SCH (09:03)
--- NOTE | 2017-05-09 10:12 | HHI.PR ---
Subjective Remarks Follow up C-diff colitis/Afib with rvr/ESRD on HD 05/04/17-patient seen and examined, he had HD today and denies any shortness of breath. Afebrile. States he is looking forward discharge to SNF 05/05/17-patient seen and examined, he has not slept overnight. Denies any significant shortness of breath. 05/06/17-patient seen and examined, he had hemodialysis today, stable and denies any shortness of breath. Currently afebrile. 05/07/17-patient seen and examined, stable today , states his son goes to work all day long; no other issue 05/08/17-patient seen and examined, plan for hemodialysis today, no issues overnight and stable. 05/09/17-patient seen and examined, no change and stable other than Back pain Objective Vitals Vital Signs Date Time Temp Pulse Resp B/P (MAP) Pulse Ox O2 Delivery O2 Flow Rate FiO2 05/09/17 09:59 114 05/09/17 08:16 96.7 113 18 86/61 (69) 94 05/09/17 04:54 97.8 116 18 100/71 (81) 95 05/09/17 04:30 112 05/09/17 00:30 127 05/09/17 00:29 97.7 81 17 99/61 (74) 96 05/08/17 20:30 141 05/08/17 20:29 97.3 119 18 117/85 (96) 95 05/08/17 16:00 98.1 86 18 91/60 (70) 96 05/08/17 15:56 102 05/08/17 12:04 106 I/O 05/08/17 05/08/17 05/08/17 05/09/17 05/09/17 05/09/17 06:59 14:59 22:59 06:59 14:59 22:59 Output Total 1000 ml Balance -1000 ml Hemodialysis 1000 ml # Voids 4 1 # Bowel Movements 4 1 Objective Remarks GENERAL: NAD SKIN: Warm and dry. HEAD: Normocephalic. Mouth: poor dentition EYES: No scleral icterus. No injection or drainage. NECK: Supple, trachea midline. No JVD or lymphadenopathy. CARDIOVASCULAR: Regular rate and rhythm with III/ SARAH RESPIRATORY: Breath sounds equal bilaterally. No accessory muscle use. GASTROINTESTINAL: Abdomen soft, non-tender, nondistended. MUSCULOSKELETAL: No cyanosis, or edema. AVF in left arm BACK: Nontender without obvious deformity. No CVA tenderness. Procedures None A/P Problem List: (1) Atrial fibrillation ICD Code: I48.91 - Unspecified atrial fibrillation (2) End stage renal disease on dialysis ICD Code: N18.6 - End stage renal disease on dialysis; Z99.2 - Dependence on renal dialysis Status: Acute (3) DM2 (diabetes mellitus, type 2) ICD Code: E11.9 - DM2 (diabetes mellitus, type 2) Status: Acute (4) Aortic valvar stenosis ICD Code: I35.0 - Nonrheumatic aortic (valve) stenosis Assessment and Plan 76 years man with 1. Atrial fibrillation with RVR: Appreciate cardiology recommendations. Continue metoprolol. Currently on Coumadin, monitor INR/PT 2. Near syncope, recurrent falls: Tachyarrhythmia may have contributed to these episodes. Patient also has severe aortic stenosis and debility. 3. Acute on chronic anemia: Likely secondary to GI bleed. Appreciate GI recommendations. Transfused 2 units PRBCs. EGD/colonoscopy showed pangastritis, duodenitis, colon polyp, diverticulosis. Continue PPI. 4. Severe aortic stenosis: Patient needs TAVR. Surgery on hold pending dental work. 5. Poor dentition: Patient has multiple decayed teeth. Patient will need dental work outpatient 6. End-stage renal disease on hemodialysis: Management per nephrology. Hemodialysis 7. Hypertension: Continue current medications. 8. C. difficile: Continue oral vancomycin (patient has been refusing). 9. Cervical spinal stenosis: Evaluated previously by neurosurgery. 10. DVT prophylaxis: SCDs, Coumadin. 11. Patent foramen ovale: Continue anticoagulation. Discharge Planning Awaiting for discharge disposition to [facility] Jeremias Mcmillan MD May 09, 2017 10:12
--- NOTE | 2017-05-09 13:43 | HHI.NPPN ---
Subjective General Problems: Anemia, Edema, Hypertension Renal Failure: End Stage Renal Disease History of Present Illness Patient is a very pleasant 76 y/o male with ESRD on hemodialysis on T, and Wed, who during hemodialysis he had a syncopl episode and was hypotnesive with SBP in the 70's. He has had recent admission due to fluid overload and found also C Diff positive was reported a melenic stool by EMS HGB at 8.9. Hemocult stool positive. Potassium was elevated at 5.5 at ER. Additional Remarks Patient is alert and oriented. Patient does not report any problems or concerns. Denies any SOB, no edema Review of Systems General General Remarks Resting comfortably, weakness Respiratory Respiratory Remarks Denies SOB Cardiovascular Cardiac Remarks Denies CP Gastrointestinal GI Remarks Denies abdominal pain Genitourinary Remarks Denies Dysuria Objective Data Data Vital Signs Date Time Temp Pulse Resp B/P (MAP) Pulse Ox O2 Delivery O2 Flow Rate FiO2 05/09/17 13:20 134 05/09/17 12:43 95.7 104 18 110/63 (79) 96 05/09/17 09:59 114 05/09/17 08:16 96.7 113 18 86/61 (69) 94 05/09/17 04:54 97.8 116 18 100/71 (81) 95 05/09/17 04:30 112 05/09/17 00:30 127 05/09/17 00:29 97.7 81 17 99/61 (74) 96 05/08/17 20:30 141 05/08/17 20:29 97.3 119 18 117/85 (96) 95 05/08/17 16:00 98.1 86 18 91/60 (70) 96 05/08/17 15:56 102 Physical Exam General Appearance: Well Nourished, No Acute Distress, Comfortable Eyes Eye Exam: Pupils Equal Throat Throat Exam: Oral Mucosa [place] & Moist Neck Neck Exam: Neck Supple Pulmonary Resp Exam: Breath Sounds Equal, No Distress Cardiology CV Exam: Normal Sinus Rhythm, Murmur Gastrointestinal/Abdomen GI Exam: Soft, Non-Tender Genitourinary Exam: Flank Non-Tender Integumentary Skin Exam: Clear, Warm Extremeties Extremities Exam: Moderate Edema Neurologic Neuro Exam: Alert, Awake, Oriented, Speech Clear Psychiatric Psych Exam: Appropriate Responses PUD Prophylasis PUD Prophylaxis: Protonix Assessment/Plan Discussed Condition With: Patient Assessment Summary: End Stage Renal Disease Problem List: (1) ESRD (end stage renal disease) on dialysis ICD Codes: N18.6 - End stage renal disease; Z99.2 - Dependence on renal dialysis Plan: continue dialysis TTS. Monitor fluid and electrolytes. Patient need dental work prior to Neurosurgical and cardiac procedures. Awaiting placement, shelter case manager follow up noted. Has agreed to work with PT today On Midodrine as BP is low BID seen during dialysis UF [address] Kumari to follow (2) Hypotension ICD Codes: I95.9 - Hypotension, unspecified Status: Acute Plan: Hypotension resolved Tachycardia improved with increased metoprolol. (3) Anemia ICD Codes: D64.9 - Anemia Status: Acute Plan: Epogen 10,000 units after each dialysis (4) C. difficile diarrhea ICD Codes: A04.72 - Enterocolitis due to Clostridium difficile, not specified as recurrent Status: Acute Plan: On vancomycin orally] Loose stools improving (5) GI bleed ICD Codes: K92.2 - Gastrointestinal hemorrhage, unspecified Status: Acute Plan: Stool positive for occult blood No active bleeding GI managing EGD and colonoscopy done Pangastritis, Duodenitis, Colon polyp, and Diverticulosis noted (6) Aortic valvar stenosis ICD Codes: I35.0 - Nonrheumatic aortic (valve) stenosis Plan: TAVR is recommended. Patient needs dental work before procedure. Problem Qualifiers (1) Hypotension: Qualified Codes: I95.9 - Hypotension, unspecified (2) Anemia: (3) GI bleed: Qualified Codes: K92.2 - Gastrointestinal hemorrhage, unspecified Jose Martin Guerrier MD May 09, 2017 13:43
[2017-05-09] MEDS: ZOLPIDEM TARTRATE 5 MG TAB PO PRN (23:32)
[2017-05-10] VITALS (11 sets, daily range): BP systolic 98–145; BP diastolic 55–95; PULSE 94–154; RESP 18–22; TEMP 95.5–98.7; O2SAT 94–98
[2017-05-10 06:41] LABS: INTERNATIONAL NORMALIZED RATIO 1.8 RATIO; PROTHROMBIN TIME - PATIENT 18.5 SEC (9.8-11.6)
[2017-05-10] MEDS: MIDODRINE 5 MG TAB PO SCH ×2 (09:11→21:38)
[2017-05-10] MEDS: ALLOPURINOL 100 MG TAB PO SCH (09:11)
[2017-05-10] MEDS: METOPROLOL TARTRATE 50 MG TAB PO SCH ×2 (09:11→21:39)
[2017-05-10] MEDS: PANTOPRAZOLE SOD 40 MG DELAYED RELEASE TAB PO SCH (09:11)
[2017-05-10] MEDS: CINACALCET HYDROCHLORIDE 30 MG TAB PO SCH (09:11)
[2017-05-10] MEDS: VANCOMYCIN 500 MG VIAL (FOR ORAL USE ONLY) PO SCH ×4 (09:11→21:39)
[2017-05-10] MEDS: SODIUM CHLORIDE 0.9% FLUSH 10 ML FLUSH IV FLUSH SCH ×2 (09:12→21:38)
--- NOTE | 2017-05-10 10:37 | HHI.PR ---
Subjective Remarks Follow up C-diff colitis/Afib with rvr/ESRD on HD 05/04/17-patient seen and examined, he had HD today and denies any shortness of breath. Afebrile. States he is looking forward discharge to SNF 05/05/17-patient seen and examined, he has not slept overnight. Denies any significant shortness of breath. 05/06/17-patient seen and examined, he had hemodialysis today, stable and denies any shortness of breath. Currently afebrile. 05/07/17-patient seen and examined, stable today , states his son goes to work all day long; no other issue 05/08/17-patient seen and examined, plan for hemodialysis today, no issues overnight and stable. 05/09/17-patient seen and examined, no change and stable other than Back pain 05/10/17-patient seen and examined, denies any shortness of breath or chest pain. Afebrile Objective Vitals Vital Signs Date Time Temp Pulse Resp B/P (MAP) Pulse Ox O2 Delivery O2 Flow Rate FiO2 05/10/17 09:10 154 20 115/95 (102) 98 05/10/17 08:50 98.7 99 18 145/65 (91) 96 05/10/17 04:44 97.6 114 18 112/76 (88) 95 05/10/17 04:30 120 05/10/17 00:45 111 98/66 (77) 05/10/17 00:30 126 05/10/17 00:29 97.3 114 115/71 (86) 94 05/09/17 20:45 97.8 126 19 125/63 (83) 96 05/09/17 20:30 125 05/09/17 16:46 97.6 115 18 115/74 (88) 97 05/09/17 16:32 138 05/09/17 13:20 134 05/09/17 12:43 95.7 104 18 110/63 (79) 96 I/O 05/09/17 05/09/17 05/09/17 05/10/17 05/10/17 05/10/17 07:00 15:00 23:00 07:00 15:00 23:00 Intake Total 240 ml Balance 240 ml Intake Oral 240 ml # Voids 1 2 # Bowel Movements 1 1 1 Imaging Last Impressions Fistulagram 1/19/18 0000 Signed Impressions: Service Date/Time: Sunday, April 23, 2017 12:00 - CONCLUSION: The patient's arteriovenous fistula, venous outflow and central venous structures are widely patent. There is brisk flow through this the swelling in the upper extremity may be related to the high flow through the fistula. Pacheco Mahajan MD Head CT 04/20/17 1208 Signed Impressions: Service Date/Time: Thursday, April 20, 2017 13:56 - CONCLUSION: Normal examination for a patient of this age. Farhan Kasper MD Chest X-Ray 04/20/17 1208 Signed Impressions: Service Date/Time: Thursday, April 20, 2017 13:05 - CONCLUSION: 1. Mild bibasilar opacity likely representing pleural effusions with associated volume loss and/or consolidation. 2. Severe atherosclerotic calcification of the aorta. Landon Marrero MD Upper Extremity Ultrasound 04/20/17 0000 Signed Impressions: Service Date/Time: Thursday, April 20, 2017 17:40 - CONCLUSION: No evidence of left upper extremity DVT. Landon Robbins MD Objective Remarks GENERAL: NAD SKIN: Warm and dry. HEAD: Normocephalic. Mouth: poor dentition EYES: No scleral icterus. No injection or drainage. NECK: Supple, trachea midline. No JVD or lymphadenopathy. CARDIOVASCULAR: Regular rate and rhythm with III/ SARAH RESPIRATORY: Breath sounds equal bilaterally. No accessory muscle use. GASTROINTESTINAL: Abdomen soft, non-tender, nondistended. MUSCULOSKELETAL: No cyanosis, or edema. AVF in left arm BACK: Nontender without obvious deformity. No CVA tenderness. Procedures None A/P Problem List: (1) Atrial fibrillation ICD Code: I48.91 - Unspecified atrial fibrillation (2) End stage renal disease on dialysis ICD Code: N18.6 - End stage renal disease on dialysis; Z99.2 - Dependence on renal dialysis Status: Acute (3) DM2 (diabetes mellitus, type 2) ICD Code: E11.9 - DM2 (diabetes mellitus, type 2) Status: Acute (4) Aortic valvar stenosis ICD Code: I35.0 - Nonrheumatic aortic (valve) stenosis Assessment and Plan 76 years man with 1. Atrial fibrillation with RVR: Appreciate cardiology recommendations. Continue metoprolol. Currently on Coumadin, monitor INR/PT 2. Near syncope, recurrent falls: Tachyarrhythmia may have contributed to these episodes. Patient also has severe aortic stenosis and debility. 3. Acute on chronic anemia: Likely secondary to GI bleed. Appreciate GI recommendations. Transfused 2 units PRBCs. EGD/colonoscopy showed pangastritis, duodenitis, colon polyp, diverticulosis. Continue PPI. 4. Severe aortic stenosis: Patient needs TAVR. Surgery on hold pending dental work. 5. Poor dentition: Patient has multiple decayed teeth. Patient will need dental work outpatient 6. End-stage renal disease on hemodialysis: Management per nephrology. Hemodialysis per Nephrology 7. Hypertension: Continue current medications. 8. C. difficile: Continue oral vancomycin (patient has been refusing). 9. Cervical spinal stenosis: Evaluated previously by neurosurgery. 10. DVT prophylaxis: SCDs, Coumadin. 11. Patent foramen ovale: Continue with current anticoagulation. Discharge Planning Awaiting for discharge disposition to Jeremias Mcmillan MD May 10, 2017 10:37
--- NOTE | 2017-05-10 15:51 | HHI.NPPN ---
Subjective General Problems: Anemia, Edema, Hypertension Renal Failure: End Stage Renal Disease History of Present Illness Patient is a very pleasant 76 y/o male with ESRD on hemodialysis on , and Wed, who during hemodialysis he had a syncopl episode and was hypotnesive with SBP in the 70's. He has had recent admission due to fluid overload and found also C Diff positive was reported a melenic stool by EMS HGB at 8.9. Hemocult stool positive. Potassium was elevated at 5.5 at ER. Additional Remarks Resting comfortably. Patient does not report any problems or concerns except that he would like to be discharged Denies any SOB, no edema (Prachi Huitron) Review of Systems General General Remarks Resting comfortably, weakness (Prachi Huitron) Respiratory Respiratory Remarks Denies SOB (Prachi Huitron) Cardiovascular Cardiac Remarks Denies CP (Prachi Huitron) Gastrointestinal GI Remarks Denies abdominal pain (Prachi Huitron) Genitourinary Remarks Denies Dysuria (Prachi Huitron) Objective Data Data Vital Signs Date Time Temp Pulse Resp B/P (MAP) Pulse Ox O2 Delivery O2 Flow Rate FiO2 05/10/17 12:00 95.5 104 22 107/75 (86) 96 05/10/17 09:10 154 20 115/95 (102) 98 05/10/17 08:50 98.7 99 18 145/65 (91) 96 05/10/17 04:44 97.6 114 18 112/76 (88) 95 05/10/17 04:30 120 05/10/17 00:45 111 98/66 (77) 05/10/17 00:30 126 05/10/17 00:29 97.3 114 115/71 (86) 94 05/09/17 20:45 97.8 126 19 125/63 (83) 96 05/09/17 20:30 125 05/09/17 16:46 97.6 115 18 115/74 (88) 97 05/09/17 16:32 138 (Prachi Huitron) Physical Exam General Appearance: Well Nourished, No Acute Distress, Comfortable (Prachi Huitron) Eyes Eye Exam: Pupils Equal (Prachi Huitron) Throat Throat Exam: Oral Mucosa [place] & Moist (Prachi Huitron) Neck Neck Exam: Neck Supple (Prachi Huitron) Pulmonary Resp Exam: Breath Sounds Equal, No Distress (Prachi HuitronP) Cardiology CV Exam: Normal Sinus Rhythm, Murmur (Prachi Huitron) Gastrointestinal/Abdomen GI Exam: Soft, Non-Tender (Prachi HuitronP) Genitourinary Exam: Flank Non-Tender (Prachi HuitronP) Integumentary Skin Exam: Clear, Warm (Prachi Huitron) Extremeties Extremities Exam: Moderate Edema (Prachi Huitron) Neurologic Neuro Exam: Alert, Awake, Oriented, Speech Clear (Prachi Huitron) Psychiatric Psych Exam: Appropriate Responses (Prachi Huitron) PUD Prophylasis PUD Prophylaxis: Protonix (Prachi Huitron) Assessment/Plan Discussed Condition With: Patient Assessment Summary: End Stage Renal Disease Problem List: (1) ESRD (end stage renal disease) on dialysis ICD Codes: N18.6 - End stage renal disease; Z99.2 - Dependence on renal dialysis Plan: continue dialysis TTS. Monitor fluid and electrolytes. Patient need dental work prior to Neurosurgical and cardiac procedures. Awaiting placement, shoe parts caser follow up noted. On Midodrine as BP is low BID Dialysis in AM and labs ordered (2) Hypotension ICD Codes: I95.9 - Hypotension, unspecified Status: Acute Plan: Hypotension resolved Tachycardia improved with increased metoprolol. (3) Anemia ICD Codes: D64.9 - Anemia Status: Acute Plan: Epogen 10,000 units after each dialysis (4) C. difficile diarrhea ICD Codes: A04.72 - Enterocolitis due to Clostridium difficile, not specified as recurrent Status: Acute Plan: On vancomycin orally] Loose stools improving (5) GI bleed ICD Codes: K92.2 - Gastrointestinal hemorrhage, unspecified Status: Acute Plan: Stool positive for occult blood No active bleeding GI managing EGD and colonoscopy done Pangastritis, Duodenitis, Colon polyp, and Diverticulosis noted (6) Aortic valvar stenosis ICD Codes: I35.0 - Nonrheumatic aortic (valve) stenosis Plan: TAVR is recommended. Patient needs dental work before procedure. (Prachi Huitron) Problem List: (1) ESRD (end stage renal disease) on dialysis ICD Codes: N18.6 - End stage renal disease; Z99.2 - Dependence on renal dialysis Plan: continue dialysis TTS. Monitor fluid and electrolytes. Patient need dental work prior to Neurosurgical and cardiac procedures. Awaiting placement, shoe parts caser follow up noted. On Midodrine as BP is low BID Dialysis in AM and labs ordered. Patient seen and examined, agree with above. (2) Hypotension ICD Codes: I95.9 - Hypotension, unspecified Status: Acute Plan: Hypotension resolved Tachycardia improved with increased metoprolol. (3) Anemia ICD Codes: D64.9 - Anemia Status: Acute Plan: Epogen 10,000 units after each dialysis (4) C. difficile diarrhea ICD Codes: A04.72 - Enterocolitis due to Clostridium difficile, not specified as recurrent Status: Acute Plan: On vancomycin orally] Loose stools improving (5) GI bleed ICD Codes: K92.2 - Gastrointestinal hemorrhage, unspecified Status: Acute Plan: Stool positive for occult blood No active bleeding GI managing EGD and colonoscopy done Pangastritis, Duodenitis, Colon polyp, and Diverticulosis noted (6) Aortic valvar stenosis ICD Codes: I35.0 - Nonrheumatic aortic (valve) stenosis Plan: TAVR is recommended. Patient needs dental work before procedure. (Quiana Mayers MD) Problem Qualifiers (1) Hypotension: Qualified Codes: I95.9 - Hypotension, unspecified (2) Anemia: (3) GI bleed: Qualified Codes: K92.2 - Gastrointestinal hemorrhage, unspecified Prachi Huitron May 10, 2017 15:51 Quiaan Mayers MD May 10, 2017 16:06
[2017-05-10] MEDS: WARFARIN SOD 1 MG TAB PO SCH (18:23)
[2017-05-10] MEDS: ZOLPIDEM TARTRATE 5 MG TAB PO PRN (21:38)
[2017-05-11] VITALS: BP 109/70; PULSE 104; RESP 18; TEMP 98.2; O2SAT 96
[2017-05-11 04:00] VITALS: BP 130/77; PULSE 52; RESP 18; TEMP 98; O2SAT 95
[2017-05-11 07:32] LABS: PROTHROMBIN TIME - PATIENT 20.3 SEC (9.8-11.6)
[2017-05-11 07:50] LABS: BICARBONATE 30.3 MEQ/L (21.0-32.0); CALCIUM 8.2 MG/DL (8.5-10.1); CREATININE 9.08 MG/DL (0.60-1.30)
[2017-05-11] MEDS: CINACALCET HYDROCHLORIDE 30 MG TAB PO SCH (08:13)
[2017-05-11] MEDS: METOPROLOL TARTRATE 50 MG TAB PO SCH (08:13)
[2017-05-11 08:40] VITALS: BP 106/78; PULSE 90; RESP 20; TEMP 97.9; O2SAT 92
[2017-05-11] MEDS: VANCOMYCIN 500 MG VIAL (FOR ORAL USE ONLY) PO SCH ×2 (09:00→13:00)
--- NOTE | 2017-05-11 09:04 | HHI.NPPN ---
Subjective General Problems: Anemia, Edema, Hypertension Renal Failure: End Stage Renal Disease History of Present Illness Patient is a very pleasant 76 y/o male with ESRD on hemodialysis on T, Th and Sat, who during hemodialysis he had a syncopl episode and was hypotnesive with SBP in the 70's. He has had recent admission due to fluid overload and found also C Diff positive was reported a melenic stool by EMS HGB at 8.9. Hemocult stool positive. Potassium was elevated at 5.5 at ER. Additional Remarks Resting comfortably. Seen during dialysis. Denies any SOB, no edema (Prachi Huitron) Review of Systems General General Remarks Resting comfortably, weakness (Prachi Huitron) Respiratory Respiratory Remarks Denies SOB (Prachi Huitron) Cardiovascular Cardiac Remarks Denies CP (Prachi Huitron) Gastrointestinal GI Remarks Denies abdominal pain (Prachi Huitron) Genitourinary Remarks Denies Dysuria (Prachi Huitron) Objective Data Data 05/11/17 05/12/17 19:00 07:00 # Voids 3 # Bowel Movements 2 Vital Signs Date Time Temp Pulse Resp B/P (MAP) Pulse Ox O2 Delivery O2 Flow Rate FiO2 05/11/17 08:40 97.9 90 20 106/78 (87) 92 05/11/17 04:00 98.0 52 18 130/77 (94) 95 05/11/17 00:00 98.2 104 18 109/70 (83) 96 05/10/17 20:00 97.4 112 18 105/55 (72) 97 05/10/17 16:22 95.7 100 22 110/77 (88) 97 05/10/17 12:00 94 05/10/17 12:00 95.5 104 22 107/75 (86) 96 05/10/17 09:10 154 20 115/95 (102) 98 (Prachi Huitron) -: 05/11/17 0710 Physical Exam General Appearance: Well Nourished, No Acute Distress, Comfortable (Prachi Huitron) Eyes Eye Exam: Pupils Equal (Prachi Huitron) Throat Throat Exam: Oral Mucosa [place] & Moist (Prachi Huitron) Neck Neck Exam: Neck Supple (Prachi Huitron) Pulmonary Resp Exam: Breath Sounds Equal, No Distress (Prachi Huitron) Cardiology CV Exam: Normal Sinus Rhythm, Murmur (Prachi Huitron) Gastrointestinal/Abdomen GI Exam: Soft, Non-Tender (Prachi Huitron) Genitourinary Exam: Flank Non-Tender (Prachi Huitron) Integumentary Skin Exam: Clear, Warm (Prachi Huitron) Extremeties Extremities Exam: Moderate Edema (Prachi Huitron) Neurologic Neuro Exam: Alert, Awake, Oriented, Speech Clear (Prachi Huitron) Psychiatric Psych Exam: Appropriate Responses (Prachi Huitron) PUD Prophylasis PUD Prophylaxis: Protonix (Prachi Huitron) Assessment/Plan Discussed Condition With: Patient Assessment Summary: End Stage Renal Disease Problem List: (1) ESRD (end stage renal disease) on dialysis ICD Codes: N18.6 - End stage renal disease; Z99.2 - Dependence on renal dialysis Plan: continue dialysis TTS. Monitor fluid and electrolytes. Patient need dental work prior to Neurosurgical and cardiac procedures. Awaiting placement, field nurse case manager follow up noted. On Midodrine as BP is low BID Phosphorus elevated will add phoslo (2) Hypotension ICD Codes: I95.9 - Hypotension, unspecified Status: Acute Plan: Hypotension resolved Tachycardia improved with increased metoprolol. (3) Anemia ICD Codes: D64.9 - Anemia Status: Acute Plan: Epogen 10,000 units after each dialysis (4) C. difficile diarrhea ICD Codes: A04.72 - Enterocolitis due to Clostridium difficile, not specified as recurrent Status: Acute Plan: On vancomycin orally] Loose stools improving (5) GI bleed ICD Codes: K92.2 - Gastrointestinal hemorrhage, unspecified Status: Acute Plan: Stool positive for occult blood No active bleeding GI managing EGD and colonoscopy done Pangastritis, Duodenitis, Colon polyp, and Diverticulosis noted (6) Aortic valvar stenosis ICD Codes: I35.0 - Nonrheumatic aortic (valve) stenosis Plan: TAVR is recommended. Patient needs dental work before procedure. (Prachi Huitron) Problem List: (1) ESRD (end stage renal disease) on dialysis ICD Codes: N18.6 - End stage renal disease; Z99.2 - Dependence on renal dialysis Plan: continue dialysis TTS. Monitor fluid and electrolytes. Patient need dental work prior to Neurosurgical and cardiac procedures. Awaiting placement, field nurse case manager follow up noted. On Midodrine as BP is low BID Phosphorus elevated on PhosLo HD now, awaiting placement. (2) Hypotension ICD Codes: I95.9 - Hypotension, unspecified Status: Acute Plan: Hypotension resolved Tachycardia improved with increased metoprolol. (3) Anemia ICD Codes: D64.9 - Anemia Status: Acute Plan: Epogen 10,000 units after each dialysis (4) C. difficile diarrhea ICD Codes: A04.72 - Enterocolitis due to Clostridium difficile, not specified as recurrent Status: Acute Plan: On vancomycin orally] Loose stools improving (5) GI bleed ICD Codes: K92.2 - Gastrointestinal hemorrhage, unspecified Status: Acute Plan: Stool positive for occult blood No active bleeding GI managing EGD and colonoscopy done Pangastritis, Duodenitis, Colon polyp, and Diverticulosis noted (6) Aortic valvar stenosis ICD Codes: I35.0 - Nonrheumatic aortic (valve) stenosis Plan: TAVR is recommended. Patient needs dental work before procedure. (Quiana Mayers MD) Problem Qualifiers (1) Hypotension: Qualified Codes: I95.9 - Hypotension, unspecified (2) Anemia: (3) GI bleed: Qualified Codes: K92.2 - Gastrointestinal hemorrhage, unspecified Prachi Huitron May 11, 2017 09:03 Quiana Mayers MD May 11, 2017 10:30
[2017-05-11 09:24] VITALS: PULSE 132
[2017-05-11] MEDS: GELATIN 12 MM/7 MM FOAM TOP PRN (10:48)
[2017-05-11] MEDS: EPOETIN ALFA 10,000 UNITS/ML VIAL IV PUSH PRN (10:49)
[2017-05-11] MEDS: ALBUMIN 25% INJ 100 ML IV PRN ×2 (10:49→10:50)
[2017-05-11 12:37] VITALS: BP 89/71; PULSE 47; RESP 16; O2SAT 97
[2017-05-11] MEDS: CALCIUM ACETATE 667 MG CAP PO SCH ×2 (13:00→14:15)
[2017-05-11] MEDS: SODIUM CHLORIDE 0.9% FLUSH 10 ML FLUSH IV FLUSH SCH (14:14)
[2017-05-11] MEDS: ALLOPURINOL 100 MG TAB PO SCH (14:15)
[2017-05-11] MEDS: PANTOPRAZOLE SOD 40 MG DELAYED RELEASE TAB PO SCH (14:16)
[2017-05-11] MEDS: MIDODRINE 5 MG TAB PO SCH (14:16)
[2017-05-11] MEDS: WARFARIN SOD 1 MG TAB PO SCH (16:00)
[2017-05-11 16:38] VITALS: BP 113/79; PULSE 120; RESP 20; TEMP 95.5; O2SAT 97
== END 2017-05-11 17:36 | DRG 306 ==
LOC: NEPE 11:46 → NEDA 15:10 → N05B 20:03
PROVIDERS: ADMIT Internal Medicine; ATTEND Internal Medicine
PROC: 30233N1 Transfusion of Nonautologous Red Blood Cells into Peripheral Vein, Percutaneous Approach (ICD-10-PCS; 2017-04-20)
PROC: 5A1D70Z Performance of Urinary Filtration, Intermittent, Less than 6 Hours Per Day (ICD-10-PCS; principal; 2017-04-21)
PROC: B51W1ZZ Fluoroscopy of Dialysis Shunt/Fistula using Low Osmolar Contrast (ICD-10-PCS; 2017-04-23)
PROC: 0DB78ZX Excision of Stomach, Pylorus, Via Natural or Artificial Opening Endoscopic, Diagnostic (ICD-10-PCS; 2017-04-24)
PROC: 0DB68ZX Excision of Stomach, Via Natural or Artificial Opening Endoscopic, Diagnostic (ICD-10-PCS; 2017-04-24)
PROC: 0DBK8ZX Excision of Ascending Colon, Via Natural or Artificial Opening Endoscopic, Diagnostic (ICD-10-PCS; 2017-04-24)
PROC: 0DB98ZX Excision of Duodenum, Via Natural or Artificial Opening Endoscopic, Diagnostic (ICD-10-PCS; 2017-04-24 12:38)
DX: I35.0 Nonrheumatic aortic (valve) stenosis (principal); N18.6 End stage renal disease; A04.72 Enterocolitis due to Clostridium difficile, not specified as recurrent; I12.0 Hypertensive chronic kidney disease with stage 5 chronic kidney disease or end stage renal disease; I95.3 Hypotension of hemodialysis; Q61.3 Polycystic kidney, unspecified; D62 Acute posthemorrhagic anemia; Q21.1 Atrial septal defect; E11.22 Type 2 diabetes mellitus with diabetic chronic kidney disease; R55 Syncope and collapse; K02.9 Dental caries, unspecified; Z99.2 Dependence on renal dialysis; M19.90 Unspecified osteoarthritis, unspecified site; Z85.828 Personal history of other malignant neoplasm of skin; M10.9 Gout, unspecified; M48.02 Spinal stenosis, cervical region; Z83.3 Family history of diabetes mellitus; Z82.49 Family history of ischemic heart disease and other diseases of the circulatory system; R29.6 Repeated falls; D63.8 Anemia in other chronic diseases classified elsewhere; E87.5 Hyperkalemia; E78.5 Hyperlipidemia, unspecified; I25.10 Atherosclerotic heart disease of native coronary artery without angina pectoris; K63.5 Polyp of colon; I48.91 Unspecified atrial fibrillation; K57.90 Diverticulosis of intestine, part unspecified, without perforation or abscess without bleeding; K29.70 Gastritis, unspecified, without bleeding; K29.80 Duodenitis without bleeding; M54.9 Dorsalgia, unspecified
CPT/HCPCS: 36430; 36901; 70450; 71045; 76937; 80048; 80053; 82550; 82948; 83605; 83690; 83880; 84100; 84443; 84484; 85025; 85027; 85610; 85730; 86850; 86900; 86901; 86920; 87040; 87493; 88305; 88312; 90935; 93005; 93308; 93971; 96374; 96375; 99152; 99153; C1769; C1887; C1894; C9113; J1100; J1580; J1644; J2250; J3010; J7030; J7050; P9016; P9047; Q4081; Q9967

== ENCOUNTER 2017-05-13 14:30 | Inpatient (IN) | payer OTHER, MEDICARE ==
[~2017-05-13] VITALS: Ht 177.8 cm; Wt 82.6 kg
[2017-05-13] VITALS (10 sets, daily range): BP systolic 61–146; BP diastolic 38–74; PULSE 111–148; RESP 16–18; TEMP 98.1–98.2; O2SAT 96–100
[~2017-05-13 14:30] MED LIST changes: -CARV25TA PO; +COUM1TAB PO; -HYDR-3798 PO; -LACT PO; +METO-309 PO; -METR-1 PO; -NAPR250T4 PO; +VANC125C3 PO
[2017-05-13] MEDS ORDERED: SODIUM CHLOR 0.9% 250 ML INJ 250 ML IV ONE (15:00)
[2017-05-13] MEDS ORDERED: DILTIAZEM HCL 25 MG/5 ML VIAL IV ONE ×2 (15:00→16:15)
[2017-05-13] MEDS ORDERED: SODIUM CHLORIDE 0.9% FLUSH 10 ML FLUSH IVF PRN (15:00)
--- NOTE | 2017-05-13 15:13 | PD ---
HPI Chief Complaint: Cardiac Complaint Time Seen by Provider: 14:42 Travel History International Travel<30 days: No Contact w/Intl Traveler<30days: No Traveled to known affect area: No History of Present Illness HPI The patient is a 76-year-old male who presents to the emergency department via EMS from dialysis for generalized weakness and A. fib with RVR. The patient was recently in the hospital for C. difficile, sepsis, and hypertension with a syncopal episode during dialysis. The patient has a history of end-stage renal disease and is on hemodialysis on Tuesdays, , and Saturdays. He is followed by [facility]. The patient states she was at dialysis earlier today, approximately 3 hours, when he became generally weak. It was noted that the patient's heart rate was elevated in the 140s to 150s. He does have a history of A. fib for which she takes metoprolol and Coumadin. The patient does complain of generalized weakness but denies any chest pain, shortness of breath, nausea, vomiting, or abdominal pain. His dialysis is via a left upper extremity AV fistula. The patient states he lives at home with his son. The patient drove himself to dialysis today per his report. PFSH Past Medical History Arthritis: Yes Asthma: No Blood Disorders: No Anxiety: No Depression: No Heart Rhythm Problems: No Cancer: Yes (skin cancer on R upper arm was removed 01/19) Cardiovascular Problems: Yes (pilonidial cyst) High Cholesterol: No (pt denies high cholestrol) Chest Pain: No Congestive Heart Failure: No COPD: No Diabetes: Yes (diet controlled) Dialysis: Yes (, , wed) Endocrine: Yes Gastrointestinal Disorders: No Gout: Yes Genitourinary: Yes (dialysis ) Hypertension: Yes Immune Disorder: No Implanted Vascular Access Dvce: No Kidney Stones: No Musculoskeletal: Yes (pilonidial cyst and bilateral gout) Neurologic: No Psychiatric: No Reproductive: No Respiratory: Yes Renal Failure: Yes (d/t polycystic kidney disease) Sleep Apnea: No Thyroid Disease: No ?: Not Past Surgical History Abdominal Surgery: No AICD: No Arteriovenous Shunt: Yes (AV FISTULA) Cardiac Surgery: No Ear Surgery: No Endocrine Surgery: No Eye Surgery: No Genitourinary Surgery: No Gynecologic Surgery: No Insulin Pump: No Joint Replacement: No Neurologic Surgery: No Oral Surgery: No Pacemaker: No Thoracic Surgery: No Other Surgery: Yes (PILONIDIAL [id number], FISTULA FOR DIALYSIS L WRIST) Social History Alcohol Use: No Tobacco Use: No Substance Use: No Allergies-Medications (Allergen,Severity, Reaction): Coded Allergies: No Known Allergies (Verified Allergy, Unknown, 03/25/17) Reported Meds & Prescriptions Reported Meds & Active Scripts Active Coumadin (Warfarin) 1 Mg Tab 1 Mg PO DAILY@1600 Lopressor (Metoprolol Tartrate) 50 Mg Tab 100 Mg PO Q12HR Reported Renvela (Sevelamer Carbonate) 800 Mg Tab 2,400 Mg PO TID Allopurinol 100 Mg Tab 100 Mg PO DAILY Sensipar (Cinacalcet) 30 Mg Tab 30 Mg PO DAILY Review of Systems Except as stated in HPI: all other systems reviewed are Neg General / Constitutional: No: Fever HENT: No: Lightheadedness Cardiovascular: Positive: Irregular Rhythm, Tachycardia, No: Chest Pain or Discomfort, Palpitations, Diaphoresis Respiratory: No: Shortness of Breath Gastrointestinal: No: Nausea, Vomiting Genitourinary: Positive: Other (history of end-stage renal disease on hemodialysis) Musculoskeletal: Positive: Weakness Neurologic: No: Dizziness Physical Exam Narrative GENERAL: Awake, alert, pleasant 76-year-old male who appears his stated age and is in no acute respiratory distress. SKIN: Focused skin assessment warm/dry. HEAD: Atraumatic. Normocephalic. EYES: No injection or drainage. ENT: No nasal bleeding or discharge. Mucous membranes pink and moist. NECK: Trachea midline. No JVD. CARDIOVASCULAR: Irregularly irregular with a heart rate in the 140s. Holosystolic murmur. RESPIRATORY: No accessory muscle use. Clear to auscultation. Breath sounds equal bilaterally. GASTROINTESTINAL: Abdomen soft, non-tender, nondistended. No rebound tenderness. MUSCULOSKELETAL: No obvious deformities. No clubbing. No cyanosis. No edema. AV fistula left upper extremity with positive thrill. NEUROLOGICAL: Awake and alert. No obvious cranial nerve deficits. Motor grossly within normal limits. Normal speech. Nonfocal. PSYCHIATRIC: Appropriate mood and affect; insight and judgment normal. Data Data Last Documented VS Vital Signs Date Time Temp Pulse Resp B/P (MAP) Pulse Ox O2 Delivery O2 Flow Rate FiO2 05/13/17 17:00 122 18 146/66 (92) 98 Nasal Cannula 2.00 05/13/17 15:02 98.1 Orders Orders Complete Blood Count With Diff (05/13/17 14:51) Comprehensive Metabolic Panel (05/13/17 14:51) Magnesium (Mg) (05/13/17 14:51) Iv Access Insert/Monitor (05/13/17 14:51) Electrocardiogram (05/13/17 14:51) Ecg Monitoring (05/13/17 14:51) Oximetry (05/13/17 14:51) Oxygen Administration (05/13/17 14:51) Chest, Single Ap (05/13/17 14:51) Diltiazem Inj (Cardizem Inj) (05/13/17 15:00) Sodium Chlor 0.9% 250 Ml Inj (Ns 250 Ml (05/13/17 15:00) Act Partial Throm Time (Ptt) (05/13/17 15:07) Prothrombin Time / Inr (Pt) (05/13/17 15:07) Diltiazem Inj (Cardizem Inj) (05/13/17 16:15) Diltiazem Inj (Cardizem Inj) (05/13/17 17:15) Admit Order (Ed Use Only) (05/13/17 17:41) Admit To Inpatient (05/13/17 ) Vital Signs (Adult) Q4H (05/13/17 17:41) Activity Oob With Assistance (05/13/17 17:41) Program Services Planner / Telemetry .CONTINUOUS (05/13/17 17:41) Intake + Output MONICA.QSHIFT (05/13/17 17:41) Diet Heart Healthy (05/13/17 Dinner) Diet Renal (05/13/17 Dinner) Sodium Chloride 0.9% Flush (Ns Flush) (05/13/17 19:45) Sodium Chloride 0.9% Flush (Ns Flush) (05/13/17 21:00) Pt Request For Service (05/13/17 17:41) Naloxone Inj (Narcan Inj) (05/13/17 19:45) Inpatient Certification (05/13/17 ) Labs Laboratory Tests Test 05/13/17 15:15 White Blood Count 13.2 TH/MM3 Red Blood Count 4.00 MIL/MM3 Hemoglobin 13.4 GM/DL Hematocrit 42.4 % Mean Corpuscular Volume 106.0 FL Mean Corpuscular Hemoglobin 33.5 PG Mean Corpuscular Hemoglobin Concent 31.7 % Red Cell Distribution Width 18.2 % Platelet Count 289 TH/MM3 Mean Platelet Volume 9.7 FL Neutrophils (%) (Auto) 84.1 % Lymphocytes (%) (Auto) 6.3 % Monocytes (%) (Auto) 8.8 % Eosinophils (%) (Auto) 0.4 % Basophils (%) (Auto) 0.4 % Neutrophils # (Auto) 11.1 TH/MM3 Lymphocytes # (Auto) 0.8 TH/MM3 Monocytes # (Auto) 1.2 TH/MM3 Eosinophils # (Auto) 0.1 TH/MM3 Basophils # (Auto) 0.1 TH/MM3 CBC Comment DIFF FINAL Differential Comment Prothrombin Time 43.7 SEC Prothromb Time International Ratio 4.4 RATIO Activated Partial Thromboplast Time 140.3 SEC [facility] Medical Decision Making Medical Screen Exam Complete: Yes Emergency Medical Condition: Yes Medical Record Reviewed: Yes Interpretation(s) EKG reveals atrial fibrillation with RVR, rate 133. ST changes noted in leads V4, V5, V6 as well as 1 and aVL. Laboratory Tests Test 05/13/17 15:15 White Blood Count 13.2 TH/MM3 Red Blood Count 4.00 MIL/MM3 Hemoglobin 13.4 GM/DL Hematocrit 42.4 % Mean Corpuscular Volume 106.0 FL Mean Corpuscular Hemoglobin 33.5 PG Mean Corpuscular Hemoglobin Concent 31.7 % Red Cell Distribution Width 18.2 % Platelet Count 289 TH/MM3 Mean Platelet Volume 9.7 FL Neutrophils (%) (Auto) 84.1 % Lymphocytes (%) (Auto) 6.3 % Monocytes (%) (Auto) 8.8 % Eosinophils (%) (Auto) 0.4 % Basophils (%) (Auto) 0.4 % Neutrophils # (Auto) 11.1 TH/MM3 Lymphocytes # (Auto) 0.8 TH/MM3 Monocytes # (Auto) 1.2 TH/MM3 Eosinophils # (Auto) 0.1 TH/MM3 Basophils # (Auto) 0.1 TH/MM3 CBC Comment DIFF FINAL Differential Comment Prothrombin Time 43.7 SEC Prothromb Time International Ratio 4.4 RATIO Activated Partial Thromboplast Time 140.3 SEC Last Impressions Chest X-Ray 05/13/17 1451 Signed Impressions: Service Date/Time: May 15:12 - CONCLUSION: Probable CHF Landon Robbins MD Differential Diagnosis Differential diagnoses includes A. fib with RVR, cardiac ischemia secondary to tachycardia, tachycardia arrhythmia, electrolyte abnormality, dehydration. Narrative Course IV was established, labs are drawn and sent, and the patient was placed on cardiac telemetry monitoring and continuous pulse oximetry monitoring. EKG was ordered and interpreted. Chest x-ray was obtained. The patient received 250 cc of normal saline and Cardizem 15 mg intravenously. I reviewed the patient's EMR, he was hospitalized in March and underwent cardiac catheterization by Dr. Ortiz. The patient was noted to have a lesion in the mid LAD as well as severe aortic stenosis. The patient was evaluated by the cardiothoracic surgeon , Dr. Garcia, at that time who noted the patient needed evaluation by dentistry for poor dentition as well as clearance by infectious disease for his C. difficile prior to any cardiothoracic intervention. The patient has A. fib with RVR, was placed on Cardizem drip. The patient will be admitted to medical service. Physician Communication Physician Communication I discussed the patient Dr. Loyd who agrees with admission. Diagnosis Primary Impression: Atrial fibrillation Qualified Codes: I48.91 - Unspecified atrial fibrillation Additional Impressions: Aortic valvar stenosis Qualified Codes: I35.0 - Nonrheumatic aortic (valve) stenosis CKD (chronic kidney disease) stage V requiring chronic dialysis Admitting Information Admitting Physician Requests: Admit Condition: Stable Reynaldo Singh MD May 13, 2017 15:13
[2017-05-13] MEDS ORDERED: SEVEL800 PO (15:51)
[2017-05-13 15:52] LABS: AUTOMATED NEUTROPHIL # 11.1 TH/MM3 (1.8-7.7); BASOPHIL # 0.1 TH/MM3 (0-0.2); BASOPHIL % 0.4 % (0.0-2.0); EOSINOPHIL # 0.1 TH/MM3 (0-0.4); EOSINOPHIL % 0.4 % (0.0-4.0); HEMATOCRIT 42.4 % (39.0-51.0); HEMOGLOBIN 13.4 GM/DL (13.0-17.0); LYMPH % 6.3 % (9.0-44.0); LYMPHOCYTE # 0.8 TH/MM3 (1.0-4.8); MEAN CORPUSCULAR HEMOGLOBIN 33.5 PG (27.0-34.0); MEAN CORPUSCULAR HGB CONC 31.7 % (32.0-36.0); MEAN PLATELET VOLUME 9.7 FL (7.0-11.0); MONO % 8.8 % (0.0-8.0); MONOCYTE # 1.2 TH/MM3 (0-0.9); NEUT % 84.1 % (16.0-70.0); PLATELET COUNT 289 TH/MM3 (150-450); RED CELL DISTRIBUTION WIDTH 18.2 % (11.6-17.2); WHITE BLOOD COUNT 13.2 TH/MM3 (4.0-11.0)
[2017-05-13 15:54] LABS: INTERNATIONAL NORMALIZED RATIO 4.4 RATIO; PROTHROMBIN TIME - PATIENT 43.7 SEC (9.8-11.6)
--- NOTE | 2017-05-13 16:20 | RADRPT ---
EXAM DATE/TIME: 05/13/2017 15:12 [facility] COMPARISON: CHEST SINGLE AP, April 20, 2017, 13:05. INDICATIONS : Short of breath. MEDICAL HISTORY : Hypertension. Glasses. Dentures. Abdominal pain. Renal failure. Dialysis. Arthritis. GOUT. Diabetes. C-Diff. SURGICAL HISTORY : None. AV fistula. Pilonidial cyst. ENCOUNTER: Initial ACUITY: 1 day PAIN SCORE: 0/10 LOCATION: Bilateral chest FINDINGS: The cardiac silhouette is mildly enlarged. There are hazy pleuroparenchymal opacities of the lung fie lds bilaterally consistent with parenchymal edema and layering effusion. CONCLUSION: Probable CHF Landon Robbins MD on May 13, 2017 at 16:17 Board Certified Radiologist. This report was verified electronically.
[2017-05-13] MEDS ORDERED: SODIUM CHLORIDE 0.9% FLUSH 10 ML FLUSH IV FLUSH PRN ×2 (17:15→19:45)
[2017-05-13 19:31] LABS: ALBUMIN 3.7 GM/DL (3.4-5.0); ALKALINE PHOSPHATASE 73 U/L (45-117); ALT (GPT) 55 U/L (12-78); AST (GOT) 67 U/L (15-37); BICARBONATE 31.9 MEQ/L (21.0-32.0); BLOOD UREA NITROGEN 27 MG/DL (7-18); CHLORIDE 99 MEQ/L (98-107); CREATININE 6.87 MG/DL (0.60-1.30); GLOMERULAR FILTRATION RATE 8 ML/MIN (>89); GLUCOSE,RANDOM 93 MG/DL (74-106); MAGNESIUM 2.4 MG/DL (1.5-2.5); SODIUM (NA) 140 MEQ/L (136-145); TOTAL BILIRUBIN ADULT 1.4 MG/DL (0.2-1.0); TOTAL PROTEIN 6.9 GM/DL (6.4-8.2)
[2017-05-13] MEDS ORDERED: NALOXONE HCL 0.4 MG/ML AMP IV PUSH PRN (19:45)
--- NOTE | 2017-05-13 19:58 | HHI.HP ---
[facility] Admission Diagnosis A. fib with RVR, CHF, ESRD on HD Diagnoses: Travel History International Travel<30 Days: No Contact w/Intl Traveler <30 Da: No Traveled to Known Affected Are: No History of Present Illness History patient, ER physician, medication, interfere medical records. Patient's 2 sons at the bedside also provided history. Patient was recently discharged from our hospital on May 10, 2017. He was managed at that time for a similar problems. He has been at [facility] only for about 2 days and he went to his dialysis today. At, the dialysis center, his blood pressure dropped and his heart rate was noted to be in 140s to 150s. He was therefore sent to the hospital. He reports that he was there for 3 hours for dialysis. Next and there was also report from ER at that 600 cc off fluid which was removed. In the emergency room, patient was noted to be in A. fib with RVR. He does have history of chronic A. fib on Coumadin. Patient also has history of severe aortic stenosis for which she was evaluated by cardiothoracic surgeon prior. He was advised to wait on the surgery until his poor dentition was fixed and his teeth were pulled out, and his recurrent C. difficile is resolved. He is currently on by mouth vancomycin at the nursing facility for the treatment of C. difficile. Apart from this blood pressure issue, patient denies any symptoms. Specifically, patient denies any chest pain/shortness of breath was focal weakness. He denies any fever there. He denies any nausea/vomiting/diarrhea. He is aware that he has C. difficile. He denies any blood in his stool or urine. However, patient is elderly gentleman who seems to and typically his symptoms. He was even telling the ER physician that he drove himself to the dialysis center today. Son's reported that this was not true. Patient was sent from [facility] to the dialysis. He has not been driving for a while. Similarly, patient looks to be quite short of breath at rest on exam. He however denies it Patient's family is frustrated about his medical condition as this is repeated episodes of fluid overload/CHF exacerbation/hypotension. All secondary to the severe aortic stenosis which is not being fixed. They have not been able to get a dentist to pull his teeth because of his insurance or alf or hospital issues. Review of Systems Except as stated in HPI: all other systems reviewed are Neg Past Family Social History Past Medical History Hypertension Type 2 diabetes Hypelipidemia Patent foramen ovale Severe Aortic Stenosis awaiting on surgery Atrial fibrillation End-stage renal disease on hemodialysis. Tuesdays//Saturdays Frequent syncopal episodes secondary to severe aortic stenosis Anemia of chronic disease Poor dentition C. difficile Past Surgical History AV Fistula Pilonidal Cyst Allergies: Coded Allergies: No Known Allergies (Verified Allergy, Unknown, 03/25/17) Family History None that he knows of Social History Denies smoking/alcohol abuse with drug abuse. Physical Exam Vital Signs Vital Signs Date Time Temp Pulse Resp B/P (MAP) Pulse Ox O2 Delivery O2 Flow Rate FiO2 05/13/17 18:00 115 18 129/61 (83) 98 Nasal Cannula 2.00 05/13/17 17:00 122 18 146/66 (92) 98 Nasal Cannula 2.00 05/13/17 16:00 148 18 145/57 (86) 98 Nasal Cannula 2.00 05/13/17 15:02 98.1 148 18 145/57 (86) 97 Nasal Cannula 2.00 05/13/17 15:02 97 Nasal Cannula 2.00 05/13/17 15:02 148 18 97 Nasal Cannula 2.00 05/13/17 15:02 97 Nasal Cannula 2.00 05/13/17 14:54 98.1 148 18 145/57 (86) 96 Physical Exam GENERAL: This is a fragile elderly gentleman, not in acute distress. However looked quite weak and has visible JVD. Heart rate 120 with irregular rhythm on monitor. SKIN: No rashes, ecchymoses or lesions. Cool and dry. HEAD: Atraumatic. Normocephalic. No temporal or scalp tenderness. EYES:No scleral icterus. No injection or drainage. ENT: Nose without bleeding, purulent drainage or septal hematoma. Airway patent. NECK: Trachea midline. Positive JVD CARDIOVASCULAR: Irregularly irregular, systolic murmur at precordium, NO gallops , or rubs. RESPIRATORY: Bilateral basilar crepitations coarse GASTROINTESTINAL: Abdomen soft, non-tender, nondistended. No hepato-splenomegaly , or palpable masses. No guarding. MUSCULOSKELETAL: Extremities without clubbing, cyanosis. No calf tenderness. Bilateral 3+ pitting edema to mid corrigan. NEUROLOGICAL: Awake and alert. C. Motor and sensory grossly within normal limits.. Normal speech. Laboratory Laboratory Tests Test 05/13/17 15:15 05/13/17 18:45 05/13/17 19:30 White Blood Count 13.2 Red Blood Count 4.00 Hemoglobin 13.4 Hematocrit 42.4 Mean Corpuscular Volume 106.0 Mean Corpuscular Hemoglobin 33.5 Mean Corpuscular Hemoglobin Concent 31.7 Red Cell Distribution Width 18.2 Platelet Count 289 Mean Platelet Volume 9.7 Neutrophils (%) (Auto) 84.1 Lymphocytes (%) (Auto) 6.3 Monocytes (%) (Auto) 8.8 Eosinophils (%) (Auto) 0.4 Basophils (%) (Auto) 0.4 Neutrophils # (Auto) 11.1 Lymphocytes # (Auto) 0.8 Monocytes # (Auto) 1.2 Eosinophils # (Auto) 0.1 Basophils # (Auto) 0.1 CBC Comment DIFF FINAL Differential Comment Prothrombin Time 43.7 Prothromb Time International Ratio 4.4 Activated Partial Thromboplast Time 140.3 Blood Urea Nitrogen 27 Creatinine 6.87 Random Glucose 93 Total Protein 6.9 Albumin 3.7 Calcium Level 9.0 Magnesium Level 2.4 Alkaline Phosphatase 73 Aspartate Amino Transf (AST/SGOT) 67 Alanine Aminotransferase (ALT/SGPT) 55 Total Bilirubin 1.4 Sodium Level 140 Potassium Level 5.0 Chloride Level 99 Carbon Dioxide Level 31.9 Anion Gap 9 Estimat Glomerular Filtration Rate 8 Result Diagram: 05/13/17 1515 05/13/17 1845 Imaging Last 48 hours Impressions Chest X-Ray 05/13/17 1451 Signed Impressions: Service Date/Time: May 15:12 - CONCLUSION: Probable CHF MD Hayley Wheeler VTE Risk Assessment Hayley VTE Risk Assessment: Mod/High Risk (score >= 2) Liamrini Risk Assessment Model Point Value = 1 Point Value = 2 Point Value = 3 Point Value = 5 Age 41-60 Minor surgery BMI > 25 kg/m2 Swollen legs Varicose veins or History of unexplained or recurrent spontaneous Oral contraceptives or hormone replacement Sepsis (< 1 month) Serious lung disease, including pneumonia (< 1 month) Abnormal pulmonary function Acute myocardial infarction Congestive heart failure (< 1 month) History of inflammatory bowel disease Medical patient at bed rest Age 61-74 Arthroscopic surgery Major open surgery (> 45 min) Laparoscopic surgery (> 45 min) Malignancy Confined to bed (> 72 hours) Immobilizing plaster cast Central venous access Age >= 75 History of VTE Family history of VTE Factor V Leiden Prothrombin [id number] Lupus anticoagulant Anticardiolipin antibodies Elevated serum homocysteine Heparin-induced thrombocytopenia Other congenital or acquired thrombophilia Stroke (< 1 month) Elective arthroplasty Hip, pelvis, or leg fracture Acute spinal cord injury (< 1 month) Prophylaxis Regimen Total Risk Factor Score Risk Level Prophylaxis Regimen 0-1 Low Early ambulation 2 Moderate Order ONE of the following: *Sequential Compression Device (SCD) *Heparin 5000 units SQ BID 3-4 Higher Order ONE of the following medications: *Heparin 5000 units SQ TID *Enoxaparin/Lovenox 40 mg SQ daily (WT < 150 kg, CrCl > 30 mL/min) *Enoxaparin/Lovenox 30 mg SQ daily (WT < 150 kg, CrCl > 10-29 mL/min) *Enoxaparin/Lovenox 30 mg SQ BID (WT < 150 kg, CrCl > 30 mL/min) AND/OR *Sequential Compression Device (SCD) 5 or more Highest Order ONE of the following medications: *Heparin 5000 units SQ TID (Preferred with Epidurals) *Enoxaparin/Lovenox 40 mg SQ daily (WT < 150 kg, CrCl > 30 mL/min) *Enoxaparin/Lovenox 30 mg SQ daily (WT < 150 kg, CrCl > 10-29 mL/min) *Enoxaparin/Lovenox 30 mg SQ BID (WT < 150 kg, CrCl > 30 mL/min) AND *Sequential Compression Device (SCD) Assessment and Plan Assessment and Plan Impression: Fluid overload. Patient received fluid bolus and dialysis and also in ER 200 cc. Hypotension at dialysis. Part of this is going to be chronic and recurrent given that patient has severe aortic stenosis with CHF. Most the mechanical problem is fixed, this is unlikely to be fixed. Need to watch for sepsis as a cause of the hypotension and recently hospitalized patient. However patient denies any symptoms. Patient does have leukocytosis today with left shift. Ongoing unresolved C. difficile likely the etiology. Sacral decubiti C. difficile colitis Leukocytosis with left shift A. fib with RVR. Heart rate 110-120. On initial arrival was 150s. Supratherapeutic INR Plan: Trial of BiPAP. Cardizem small dose. Continue C. difficile treatment. Would consult oromaxillofacial surgery for possibility of removing his teeth as an inpatient since this patient really needs this done and has been not getting results. Case management consult for possibility of transferring the patient to the [facility] system in [place] per family request. Nephrology consult for dialysis in a.m. Admit patient to [facility] for close monitoring. Possible patient can decompensate overnight in he gets worsening fluid overload. Will need to use BiPAP if that's the case. Respiratory therapist is informed. Nursing staff informed. Wound care consult for sacral decubiti. Resume home meds. Will hold antihypertensive and Coumadin. DVT prophylaxis to restart with Coumadin once INR is less than 3. Physician Certification 2 Midnight Certification Type: Admission for Inpatient Services Order for Inpatient Services The services are ordered in accordance with Medicare regulations or non- Medicare payer requirements, as applicable. In the case of services not specified as inpatient-only, they are appropriately provided as inpatient services in accordance with the 2-midnight benchmark. Estimated LOS (days): 4 days is the estimated time the patient will need to remain in the hospital, assuming treatment plan goals are met and no additional complications. Post-Hospital Plan: Not yet determined Marquita Loyd MD May 13, 2017 19:58
[2017-05-13] MEDS: DILTIAZEM INJ 125 MG in SODIUM CHLORIDE 0.9% INJ 100 ML IV PRN ×2 (21:46→22:54)
[2017-05-13] MEDS: SODIUM CHLORIDE 0.9% FLUSH 10 ML FLUSH IV FLUSH SCH (21:47)
--- NOTE | 2017-05-13 21:48 | PD ---
Physical Exam Narrative Patient admitted prior to shift change to hospitalist service. Laboratory examinations were pending. Repeat blood draw performed, examinations are resulted. Reviewed by admitting hospitalist, patient transferred to the floor. Patient not cared for worsening by myself. Data Data Last Documented VS Vital Signs Date Time Temp Pulse Resp B/P (MAP) Pulse Ox O2 Delivery O2 Flow Rate FiO2 05/13/17 17:00 122 18 146/66 (92) 98 Nasal Cannula 2.00 05/13/17 15:02 98.1 Orders Orders Complete Blood Count With Diff (05/13/17 14:51) Comprehensive Metabolic Panel (05/13/17 14:51) Magnesium (Mg) (05/13/17 14:51) Iv Access Insert/Monitor (05/13/17 14:51) Electrocardiogram (05/13/17 14:51) Ecg Monitoring (05/13/17 14:51) Oximetry (05/13/17 14:51) Oxygen Administration (05/13/17 14:51) Chest, Single Ap (05/13/17 14:51) Diltiazem Inj (Cardizem Inj) (05/13/17 15:00) Sodium Chlor 0.9% 250 Ml Inj (Ns 250 Ml (05/13/17 15:00) Act Partial Throm Time (Ptt) (05/13/17 15:07) Prothrombin Time / Inr (Pt) (05/13/17 15:07) Diltiazem Inj (Cardizem Inj) (05/13/17 16:15) Diltiazem Inj (Cardizem Inj) (05/13/17 17:15) Admit Order (Ed Use Only) (05/13/17 17:41) Admit To Inpatient (05/13/17 ) Vital Signs (Adult) Q4H (05/13/17 17:41) Activity Oob With Assistance (05/13/17 17:41) Firer Boiler / Telemetry .CONTINUOUS (05/13/17 17:41) Intake + Output MONICA.QSHIFT (05/13/17 17:41) Diet Heart Healthy (05/13/17 Dinner) Diet Renal (05/13/17 Dinner) Sodium Chloride 0.9% Flush (Ns Flush) (05/13/17 19:45) Sodium Chloride 0.9% Flush (Ns Flush) (05/13/17 21:00) Basic Metabolic Panel (Bmp) (05/14/17 06:00) Complete Blood Count With Diff (05/14/17 06:00) Pt Request For Service (05/13/17 17:41) Naloxone Inj (Narcan Inj) (05/13/17 19:45) Inpatient Certification (05/13/17 ) Labs Laboratory Tests Test 05/13/17 15:15 White Blood Count 13.2 TH/MM3 Red Blood Count 4.00 MIL/MM3 Hemoglobin 13.4 GM/DL Hematocrit 42.4 % Mean Corpuscular Volume 106.0 FL Mean Corpuscular Hemoglobin 33.5 PG Mean Corpuscular Hemoglobin Concent 31.7 % Red Cell Distribution Width 18.2 % Platelet Count 289 TH/MM3 Mean Platelet Volume 9.7 FL Neutrophils (%) (Auto) 84.1 % Lymphocytes (%) (Auto) 6.3 % Monocytes (%) (Auto) 8.8 % Eosinophils (%) (Auto) 0.4 % Basophils (%) (Auto) 0.4 % Neutrophils # (Auto) 11.1 TH/MM3 Lymphocytes # (Auto) 0.8 TH/MM3 Monocytes # (Auto) 1.2 TH/MM3 Eosinophils # (Auto) 0.1 TH/MM3 Basophils # (Auto) 0.1 TH/MM3 CBC Comment DIFF FINAL Differential Comment Prothrombin Time 43.7 SEC Prothromb Time International Ratio 4.4 RATIO Activated Partial Thromboplast Time 140.3 SEC [facility] Medical Record Reviewed: Yes Supervised Visit with FANI: Yes Differential Diagnosis See note by admitting physician Narrative Course See note by admitting physician Diagnosis Primary Impression: Atrial fibrillation Qualified Codes: I48.91 - Unspecified atrial fibrillation Admitting Information Admitting Physician Requests: Admit Condition: Stable Edson Gallegos MD May 13, 2017 21:48
[2017-05-14] VITALS (26 sets, daily range): BP systolic 74–118; BP diastolic 50–80; PULSE 66–135; RESP 11–57; TEMP 96.4–98.4; O2SAT 82–100
[2017-05-14] MEDS ORDERED: SODIUM CHLOR 0.9% 1000 ML INJ 1,000 ML IV ONE
[2017-05-14] MEDS ORDERED: SODIUM CHLOR 0.9% 250 ML INJ 250 ML IV ONE (04:00)
--- NOTE | 2017-05-14 04:29 | HHI.PR ---
Addendum to Inpatient Note Addendum Reason: Additional Documentation Additional Information Amber Note S: Resident team called for [place] approximately 2345 on 05/13/17. Staff reported that Amber was called for hypotension. Reported that the patient had recently been transferred to the floor from the ED and had received diltiazem for A. fib with RVR. Upon interview with the patient had difficulty speaking. Spoke in a low whispering voice. Staff reported this is his baseline. Denies chest pain, palpitation, arm or jaw pain, shortness of breath, cough, headache, lightheadedness, dizziness, change in vision. No other complaints at this time. O: BP: 87/52 P: 100 RR: 16 SPO2: 99% GENERAL: Laying in bed, comfortable, no acute distress SKIN: Warm and dry. HEAD: Atraumatic. Normocephalic. EYES: Pupils equal and round. No scleral icterus. No injection or drainage. ENT: No nasal bleeding or discharge. Mucous membranes pink and moist. NECK: Trachea midline. No JVD. CARDIOVASCULAR: Mildly elevated rate, normal rhythm. RESPIRATORY: No accessory muscle use. Clear to auscultation. Breath sounds equal bilaterally. GASTROINTESTINAL: Abdomen soft, non-tender, nondistended. Hepatic and splenic margins not palpable. MUSCULOSKELETAL: Extremities without clubbing, cyanosis, or edema. No obvious deformities. NEUROLOGICAL: Awake and alert. No obvious cranial nerve deficits. Motor grossly within normal limits. Five out of 5 muscle strength in the arms and legs. Normal speech. PSYCHIATRIC: Appropriate mood and affect; insight and judgment normal. A/P 76-year-old male recently treated for A. fib with RVR with Cardizem with blood pressure 87/52. Blood pressure was manually remeasured, systolic was 89. Historically patient's systolic blood pressure has been in the low 100s to 90s. Nursing had been in contact with patient's covering physician, it was recommended the administer a saline bolus. Currently asymptomatic. -Bolus administered -Cardizem stopped -Asymptomatic, advise nursing to call us again in the event of acute status change, new symptom development, worsening blood pressure. Bradley Mitchell MD R1 May 14, 2017 04:29
[2017-05-14 05:05] LABS: AUTOMATED NEUTROPHIL # 6.3 TH/MM3 (1.8-7.7); BASOPHIL # 0.1 TH/MM3 (0-0.2); BASOPHIL % 0.7 % (0.0-2.0); EOSINOPHIL # 0.2 TH/MM3 (0-0.4); EOSINOPHIL % 2.2 % (0.0-4.0); HEMOGLOBIN 12.1 GM/DL (13.0-17.0); LYMPHOCYTE # 1.1 TH/MM3 (1.0-4.8); MEAN CELL VOLUME 104.1 FL (80.0-100.0); MEAN CORPUSCULAR HEMOGLOBIN 33.9 PG (27.0-34.0); MEAN CORPUSCULAR HGB CONC 32.6 % (32.0-36.0); MEAN PLATELET VOLUME 9.4 FL (7.0-11.0); MONO % 10.4 % (0.0-8.0); MONOCYTE # 0.9 TH/MM3 (0-0.9); NEUT % 73.7 % (16.0-70.0); PLATELET COUNT 173 TH/MM3 (150-450); RED BLOOD COUNT 3.56 MIL/MM3 (4.50-5.90); RED CELL DISTRIBUTION WIDTH 16.9 % (11.6-17.2); WHITE BLOOD COUNT 8.5 TH/MM3 (4.0-11.0)
[2017-05-14 05:29] LABS: BICARBONATE 28.8 MEQ/L (21.0-32.0); CALCIUM 8.3 MG/DL (8.5-10.1); CREATININE 6.78 MG/DL (0.60-1.30)
[2017-05-14] MEDS ORDERED: CHLORHEXIDINE GLUCONATE 2 % 1 PACK (2 CLOTHS)(extra cloths) TOPICAL PRN (05:30)
[2017-05-14] MEDS ORDERED: AMIODARONE INJ 450 MG in DEXTROSE 5% IN WATE(EXCEL) INJ 241 ML IV PRN ×2 (05:45)
[2017-05-14] MEDS ORDERED: ALBUMIN 5% INJ 500 ML IV ONE (05:45)
[2017-05-14] MEDS ORDERED: SODIUM CHLORID 0.9% 500 ML INJ 500 ML IV ONE (05:45)
[2017-05-14 06:09] LABS: TROPONIN I 1.47 NG/ML (0.02-0.05)
[2017-05-14] MEDS ORDERED: AMIODARONE 150 MG/D5W 97 ML BOLUS 10 MINUTES IV ONE ×2 (06:15)
[2017-05-14] MEDS: AMIODARONE INJ 450 MG in SODIUM CHLOR 0.9% (EXCEL) INJ 241 ML IV PRN ×2 (06:29→14:25)
--- NOTE | 2017-05-14 07:06 | RADRPT ---
EXAM DATE/TIME: 05/14/2017 06:46 [facility] COMPARISON: CHEST SINGLE AP, May 13, 2017, 15:12. INDICATIONS : Evaluate for respiratory disease. MEDICAL HISTORY : Hypertension. Glasses. Dentures. Abdominal pain. Renal failure. Dialysis. SURGICAL HISTORY : None. AV fistula. Pilonidial cyst. ENCOUNTER: Initial ACUITY: 1 day PAIN SCORE: Non-responsive. LOCATION: chest FINDINGS: The chest is unchanged in appearance. There is continued diffuse opacity throughout both lungs with i nterstitial vascular prominence and moderate cardiomegaly. Bilateral pleural effusions are again note d. CONCLUSION: Pulmonary congestive changes without significant improvement. Ronald Lott MD on May 14, 2017 at 7:02 Board Certified Radiologist. This report was verified electronically.
[2017-05-14] MEDS ORDERED: DILTIAZEM HCL 25 MG/5 ML VIAL ONE (07:08)
[2017-05-14] MEDS: PHENYLEPHRINE 40 MG in D5W 500 ML IV PRN (07:19)
[2017-05-14] MEDS: DILTIAZEM INJ 125 MG in SODIUM CHLORIDE 0.9% INJ 100 ML IV PRN ×2 (07:22→15:10)
--- NOTE | 2017-05-14 07:29 | PD.CONS ---
[facility] Service Critical Care Medicine Consult Requested By Dr. Quintanilla Reason for Consult Shock multifactorial Atrial fibrillation with RVR Congestive heart failure Elevated troponin Probable sepsis Severe aortic stenosis Primary Care Physician [facility] History of Present Illness Patient is a 76-year-old male with past medical history significant for recurrent CHF exacerbation, severe aortic stenosis (peak 94, mean 55, NATA 0.5) CAD with LAD lesion, end-stage renal disease on hemodialysis, history of C. difficile colitis, diabetes hypertension, atrial fibrillation. Patient was recently discharged from [facility] on 05/10/2017. Per hospitalist admit note, patient went to hemodialysis from [facility] and at the dialysis center, his heart rate was 140s to 150s, with hypotension and was transferred to ED. On arrival he was in A. fib with RVR. Patient was given 1.5 L of normal saline overnight, an additional 500 mL in a.m. for persistent hypotension. Despite being started on amiodarone patient remained in A. fib with RVR with rate 120-140s and hypotensive. Patient also was slightly tachypneic but maintaining oxygen saturation. Critical care medicine was consulted for persistent hypotension and A. fib with RVR. His troponin also had peaked at 1.47. He has had known LAD lesion on cardiac catheterization done in March 2017. He was advised to wait on the TAVR/PCI until dental extraction, and his recurrent C. difficile is resolved. He is on by mouth vancomycin at the nursing facility for the treatment of C. difficile. I evaluated the patient immediately in the ICU. His systolic blood pressure varying from mid 70s to mid 80s. Currently on amiodarone infusion. Patient is slightly tachypneic but appears critically ill, pale. I have started Yosef- Synephrine to support blood pressure, keep map above 65, start Cardizem infusion for better rate control. Loaded with digoxin IV 0.25 mg 1. May need DCCV if rate not controlled due to hypotension and sev . To cover for sepsis started patient on vancomycin and Zosyn also added p.o. Flagyl. Check influenza anc C Diff. Discussed with Dr. Ortiz and Dr. Nielson. Review of Systems ROS Limitations: Clinical Condition Past Family Social History Allergies: Coded Allergies: No Known Allergies (Verified Allergy, Unknown, 03/25/17) Past Medical History Severe Aortic Stenosis being evaluated by CTS (peak 94, mean 55, NATA 0.5). Coronary artery disease with LAD lesion on cardiac catheterization March 2017 Hypertension Type 2 diabetes Hypelipidemia Patent foramen ovale Atrial fibrillation End-stage renal disease on hemodialysis. Tuesdays//Wednesday Frequent syncopal episodes secondary to severe aortic stenosis Anemia of chronic disease Poor dentition C. difficile Past Surgical History AV Fistula for HD Pilonidal Cyst Reported Medications Vancomycin (Vancomycin HCl) 125 Mg Cap 125 Mg PO QID Coumadin (Warfarin) 1 Mg Tab 1 Mg PO DAILY@1600 Lopressor (Metoprolol Tartrate) 50 Mg Tab 100 Mg PO Q12HR Allopurinol 100 Mg Tab 100 Mg PO DAILY Sensipar (Cinacalcet) 30 Mg Tab 30 Mg PO DAILY Active Ordered Medications Reviewed Family History Unable to obtain poor historian Social History No alcohol or tobacco use Physical Exam Vital Signs Vital Signs Date Time Temp Pulse Resp B/P (MAP) Pulse Ox O2 Delivery O2 Flow Rate FiO2 05/14/17 07:22 141 90/58 05/14/17 07:19 133 96/54 05/14/17 06:29 127 78/50 05/14/17 06:28 127 78/50 05/14/17 05:25 77/53 (61) 05/14/17 04:12 131 05/14/17 03:40 112 05/14/17 03:22 98.4 108 92/50 (64) 90 05/14/17 02:00 116 05/14/17 01:00 114 05/14/17 00:00 114 05/13/17 23:30 98.2 112 61/38 (46) 100 05/13/17 23:20 05/13/17 23:00 98.2 112 87/52 (64) 100 05/13/17 22:54 114 129/82 05/13/17 22:21 111 16 115/51 (72) 100 2.00 05/13/17 21:46 145 117/72 05/13/17 21:39 117/74 (88) 05/13/17 20:33 100 40 05/13/17 18:00 115 18 129/61 (83) 98 Nasal Cannula 2.00 05/13/17 17:00 122 18 146/66 (92) 98 Nasal Cannula 2.00 05/13/17 16:00 148 18 145/57 (86) 98 Nasal Cannula 2.00 05/13/17 15:02 98.1 148 18 145/57 (86) 97 Nasal Cannula 2.00 05/13/17 15:02 97 Nasal Cannula 2.00 05/13/17 15:02 148 18 97 Nasal Cannula 2.00 05/13/17 15:02 97 Nasal Cannula 2.00 05/13/17 14:54 98.1 148 18 145/57 (86) 96 Physical Exam GENERAL: This is a elderly gentleman, appears lethargic tachypnea and critically ill and hypotensive SKIN: No rashes. Cool and dry. HEAD: Atraumatic. Normocephalic. No temporal or scalp tenderness. EYES:No scleral icterus. No injection or drainage. ENT: Airway patent. NECK: Trachea midline. Positive JVD CARDIOVASCULAR: Irregularly irregular tachycardic, systolic murmur at LSB, hypotensive, SBP in 70s RESPIRATORY: Bilateral basilar rales. No wheezes GASTROINTESTINAL: Abdomen soft, non-tender, nondistended. No hepato-splenomegaly MUSCULOSKELETAL: Extremities without clubbing, cyanosis. 1+ pitting edema. Left fore arm fistula in place NEUROLOGICAL: Awake and alert. Motor and sensory grossly within normal limits. Follows commands normal speech Laboratory Laboratory Tests Test 05/13/17 15:15 05/13/17 18:45 05/13/17 19:30 05/14/17 04:56 White Blood Count 13.2 8.5 Red Blood Count 4.00 3.56 Hemoglobin 13.4 12.1 Hematocrit 42.4 37.0 Mean Corpuscular Volume 106.0 104.1 Mean Corpuscular Hemoglobin 33.5 33.9 Mean Corpuscular Hemoglobin Concent 31.7 32.6 Red Cell Distribution Width 18.2 16.9 Platelet Count 289 173 Mean Platelet Volume 9.7 9.4 Neutrophils (%) (Auto) 84.1 73.7 Lymphocytes (%) (Auto) 6.3 13.0 Monocytes (%) (Auto) 8.8 10.4 Eosinophils (%) (Auto) 0.4 2.2 Basophils (%) (Auto) 0.4 0.7 Neutrophils # (Auto) 11.1 6.3 Lymphocytes # (Auto) 0.8 1.1 Monocytes # (Auto) 1.2 0.9 Eosinophils # (Auto) 0.1 0.2 Basophils # (Auto) 0.1 0.1 CBC Comment DIFF FINAL DIFF FINAL Differential Comment Prothrombin Time 43.7 Prothromb Time International Ratio 4.4 Activated Partial Thromboplast Time 140.3 Blood Urea Nitrogen 27 31 Creatinine 6.87 6.78 Random Glucose 93 72 Total Protein 6.9 Albumin 3.7 Calcium Level 9.0 8.3 Magnesium Level 2.4 Alkaline Phosphatase 73 Aspartate Amino Transf (AST/SGOT) 67 Alanine Aminotransferase (ALT/SGPT) 55 Total Bilirubin 1.4 Sodium Level 140 144 Potassium Level 5.0 4.5 Chloride Level 99 103 Carbon Dioxide Level 31.9 28.8 Anion Gap 9 12 Estimat Glomerular Filtration Rate 8 8 Troponin I 0.69 1.47 Lactic Acid Level 1.9 Total Creatine Kinase 29 Result Diagram: 05/14/1745505/14/17455 Imaging Chest x-ray shows pulmonary vascular congestion and right sided effusion Septic Shock Reassessment Septic shock perfusion: reassessment completed Assessment and Plan Assessment and Plan ASSESSMENT: Shock multifactorial Atrial fibrillation with RVR Congestive heart failure Elevated troponin Probable sepsis Coagulopathy secondary to Coumadin/supratherapeutic INR Severe aortic stenosis (peak 94, mean 55, NATA 0.5) CAD with LAD lesion End-stage renal disease on hemodialysis Recent history of C. difficile colitis Diabetes Hypertension Chronic atrial fibrillation PLAN: NEURO: -Minimize all sedation -Encephalopathy most likely metabolic RESP: -Nasal cannula oxygen. Keep oxygen saturation above 90% -DuoNeb every 6 hours as needed CV: -Normal saline IV fluids s/p 2L bolus -Start Yosef-Synephrine to keep map above 65 -Continue amiodarone infusion, added Cardizem infusion for rate control -Digoxin 0.25 mg IV 1 -May need DC cardioversion if blood pressure not improving -Coumadin on hold due to supra INR -Start aspirin 81 mg daily -No beta-blockers due to hypotension -Hemodialysis if worsening CHF therapeutic -Cardiology consult with Dr. Ortiz discussed with him -Discussed with CTS Dr. Nielson, may need balloon valvuloplasty for severe aortic stenosis, once more stable GI: -N.p.o., IV famotidine : -End-stage renal disease on hemodialysis ID: -IV vancomycin, IV Zosyn, p.o. Flagyl -Follow-up on cultures check influenza check C. difficile HEME: -Monitor CBC, CMP, INR -Coumadin on hold due to subtherapeutic INR ENDO: -Monitor electrolytes closely PROPH: -Bilateral lower extremity SCDs. INR supra therapeutic. Once <2, start IV heparin and hold Coumadin in anticipation of invasive procedures LINES: -Place central line may need arterial line CC time 77 min excluding procedural time Code Status Full Discussed Condition With Nisreen Dong and Mendoza Neville MD May 14, 2017 07:29
[2017-05-14] MEDS ORDERED: Vancomycin Consult Pharmacy 1 EA OTHER SCH (07:30)
[2017-05-14] MEDS ORDERED: VANCOMYCIN INJ 1,000 MG in SODIUM CHLOR 0.9% 250 ML INJ 250 ML IV ONE (07:30)
[2017-05-14] MEDS ORDERED: TERBUTALINE INJ 1 MG/ML AMP SQ PRN (08:00)
[2017-05-14] MEDS ORDERED: VANCOMYCIN 1,500 MG/NS 500 ML IV ONE ×2 (08:00)
[2017-05-14 08:31] LABS: INTERNATIONAL NORMALIZED RATIO 2.9 RATIO; PROTHROMBIN TIME - PATIENT 28.8 SEC (9.8-11.6)
[2017-05-14] MEDS ORDERED: DILTIAZEM HCL 25 MG/5 ML VIAL IV ONE ×2 (08:45→10:45)
[2017-05-14] MEDS ORDERED: DIGOXIN 0.5 MG/2 ML VIAL ONE (08:54)
[2017-05-14] MEDS ORDERED: HEPARIN-D5W 25,000 U/250 ML 250 ML IV PRN (09:00)
[2017-05-14] MEDS: CHLORHEXIDINE 0.12% (ORAL KIT) 15 ML CUP SWISH-SPIT SCH ×3 (09:00→17:58)
[2017-05-14] MEDS: SODIUM CHLORIDE 0.9% FLUSH 10 ML FLUSH IV FLUSH SCH ×2 (09:00→20:46)
--- NOTE | 2017-05-14 09:12 | MB ---
cc: KARL SANTIAGO DMD [facility], DATE OF CONSULTATION 05/13/2017 REASON FOR CONSULTATION Aortic stenosis HISTORY OF PRESENT ILLNESS This is a 76-year-old male with a history of aortic stenosis and hypotension. He has been admitted to the hospital status post a blood pressure rate drop. His heart rate was in the high 140's to 150's. He also has a history of chronic atrial fibrillation. He also has a history of C. difficile. He has also has generalized poor dentition and his aortic stenosis was never repaired. I have seen and examined this patient this evening. He is alert, awake, and oriented x3 in no acute distress. PAST MEDICAL HISTORY As per the patient report: 1. Hypertension 2. Diabetes mellitus 3. Atrial fibrillation 4. Aortic stenosis 5. End-stage renal disease, he is on dialysis Tuesdays, and Saturdays. 6. Syncopal episodes PAST SURGICAL HISTORY 1. AV fistula 2. Pyloric cyst ALLERGIES Denied SOCIAL HISTORY Denies any alcohol, tobacco or drugs. PHYSICAL EXAM No gross facial edema that is noted. Intraorally, edentulous maxilla. Mandible, he has got one remaining tooth lower left lateral and the rest of the areas in the premolars and the anterior shows all broken down retained roots. Not able to see any other roots that are retained underneath the gingiva or under the gums. No intraoral signs of any infection, bleeding, any pus or any edema. VITAL SIGNS: Pulse is 145, blood pressure 110/72 with oxygen saturation 98, O2 of two liters. LABORATORY DATA White count 13.2, H&H is 13.4 and 42.4 with platelets of 289, INR is 4.4. PT 43.7 with a PTT of 140.3. IMPRESSION AND PLAN This is a 36-year-old male with severe aortic stenosis leading to a history of hypertension, tachycardia, A fib. Right now elevated Coumadin/INR levels. We will suggest to have the patient follow up in our office and have the extraction of the teeth in our office and obtain a Panorex radiograph to check any other teeth that are not viewed clinically prior to his aortic valve replacement. Do Peridex mouth rinses. Have the patient follow up in my office, Dr. Santiago, [facility] when discharged, . Karl Santiago DMD RRT/AMBAR /10:08 PM /8:42 AM
[2017-05-14] MEDS ORDERED: DIGOXIN 0.5 MG/2 ML VIAL IV PUSH ONE (09:15)
--- NOTE | 2017-05-14 09:43 | PD.PROCEDR ---
Central Line Procedure REASON FOR PROCEDURE Central venous access PROCEDURE PERFORMED Central line placement: RIJ CONSENT Informed consent for procedure was obtained and time our performed. The risks and benefits of the procedure were discussed to include but limited to bleeding , clot formation, infection, and even . ANESTHESIA Local injection of 1% Lidocaine DESCRIPTION OF THE PROCEDURE The patient was placed in supine, mild Trendelenburg position. The area was exposed and cleansed with ChloraPrep, times two. Large sterile drape was used to cover the patient, with the site exposed, under sterile conditions including cap, face mask, sterile gown, and sterile gloves. On single attempt, the introducer needle was inserted with negative pressure in syringe and venous flash was obtained. The guide wire was then advanced without any restriction and the needle was removed. The dilator was used without any complications. Using Seldinger technique the 20 cm 7F catheter was advanced over the guide wire to a depth of 17 centimeters. The guide wire was removed. All ports were aspirated with dark venous blood return and flushed easily with sterile saline. All ports were capped. Antibiotic disc was placed around central line at puncture site. The central line was secured to the skin with two interrupted 2.0 silk sutures. The area was bandaged with sterile see-through central line bandage. RADIOLOGICAL DATA Ultrasound guidance was used to locate RIJ. Doppler/color flow was used to confirm venous flow. COMPLICATIONS: No apparent complications ESTIMATED BLOOD LOSS: Less than 1 cc. Mendoza Navarrete MD May 14, 2017 09:43
[2017-05-14] MEDS ORDERED: SODIUM CHLOR 0.9% 1000 ML INJ 1,000 ML OTHER PRN ×2 (11:21)
[2017-05-14] MEDS ORDERED: SODIUM CHLOR 0.9% 1000 ML INJ 1,000 ML IV PRN (11:21)
[2017-05-14] MEDS ORDERED: diphenhydrAMINE HCL 25 MG CAP PO PRN (11:30)
[2017-05-14] MEDS ORDERED: ONDANSETRON HCL 4 MG/2 ML VIAL IV PUSH PRN (11:30)
[2017-05-14] MEDS ORDERED: SODIUM CHLORIDE 0.9% FLUSH 10 ML FLUSH IV FLUSH PRN (11:30)
[2017-05-14] MEDS ORDERED: NITROGLYCERIN 0.4 MG SL 25 TABS/BTL SL PRN (11:30)
[2017-05-14] MEDS ORDERED: HEPARIN SODIUM - IV 10,000 UNITS/10 ML VIAL IV FLUSH PRN (11:30)
[2017-05-14] MEDS ORDERED: GENTAMICIN SULFATE 20 MG/2 ML VIAL OTHER PRN (11:30)
[2017-05-14] MEDS ORDERED: MANNITOL 12.5 GM/50 ML VIAL IV PRN (11:30)
[2017-05-14] MEDS ORDERED: cloNIDine HCL 0.1 MG TAB PO PRN (11:30)
[2017-05-14] MEDS ORDERED: HEPARIN SODIUM - IV 10,000 UNITS/10 ML VIAL PRN (11:30)
[2017-05-14] MEDS: ALLOPURINOL 100 MG TAB PO SCH (11:33)
[2017-05-14] MEDS: SEVELAMER CARBONATE 800 MG TAB PO SCH ×3 (11:33→17:58)
[2017-05-14] MEDS: ASPIRIN 81 MG CHEW TAB CHEW SCH (11:33)
[2017-05-14] MEDS: PIPERACIL-TAZO 2.25 GM PREMIX 50 ML IV SCH ×3 (11:33→23:32)
--- NOTE | 2017-05-14 11:51 | RADRPT ---
EXAM DATE/TIME: 05/14/2017 09:41 [place] COMPARISON: CHEST SINGLE AP, May 14, 2017, 6:46. INDICATIONS : Central line placement. MEDICAL HISTORY : Hypertension. Dialysis. SURGICAL HISTORY : AV fistula. Pilonidal cyst. ENCOUNTER: Subsequent ACUITY: 1 week PAIN SCORE: Non-responsive. LOCATION: Bilateral chest FINDINGS: The heart remains enlarged. There is a stable right pleural effusion. Moderate pulmonary vascular con gestion is noted bilaterally. Right internal jugular central line has its tip in the superior vena ca va. No pneumothorax is noted. CONCLUSION: Moderate pulmonary vascular congestion. Stable right pleural effusion. Cardiomegaly. Georges Mcdermott MD on May 14, 2017 at 11:48 Board Certified Radiologist. This report was verified electronically.
--- NOTE | 2017-05-14 12:12 | MB ---
cc: EUNICE RODRIGEZ MD DATE OF CONSULTATION: 05/14/2017 REASON FOR CONSULTATION: End-stage renal disease on hemodialysis for management. HISTORY OF PRESENT ILLNESS This is a very pleasant 76-year-old male known to me from before with past medical history of hypertension, diabetes mellitus, hyperlipidemia, severe aortic stenosis, atrial fibrillation, chronic anemia, who was recently discharged from the hospital and brought back because of hypotension from the dialysis. The patient has been on regular dialysis Wednesday, and Wednesday. He was discharged two days ago to [facility], from there he went for dialysis and during dialysis his blood pressure went down. It was as low as 70/40 and I was called and he was sent to the emergency room. He was given some IV fluid during dialysis but his blood pressure did not improve much and also he was tachycardiac with a heart rate going up to 130. The patient was not complaining of any chest pain at that time he had some dizziness, currently he is with nasal cannula and has mild shortness of breath. Denies any chest pain or palpitations. No nausea or vomiting. No history of fever. PAST MEDICAL HISTORY 1. Hypertension 2. Diabetes mellitus 3. Hyperlipidemia 4. Severe aortic stenosis 5. Atrial fibrillation 6. End-stage renal disease on hemodialysis. PAST SURGICAL HISTORY AV fistula surgery by the right cyst removal. REVIEW OF SYSTEMS The patient denies any headache, dizziness, no there is no history of fever. No sore throat. He has mild shortness of breath with occasionally has dry cough. No nausea or vomiting. No abdominal pain. SOCIAL HISTORY The patient is single. Currently he is in the nursing facility and there is no history of smoking or alcoholism. FAMILY HISTORY: Family history is noncontributory. ALLERGIES NO KNOWN DRUG ALLERGIES. MEDICATIONS Currently on 1. Allopurinol 100 mg once a. 2. Sensipar 30 mg daily. 3. Aspirin 31 mg daily. 4. Zosyn 2.25 grams IV q. 8-hour. 5. Flagyl 500 mg q. 8-hour. 6. Renvela 2.4 grams t.i.d. 7. Amiodarone p.r.n. 8. Diltiazem p.r.n. PHYSICAL EXAMINATION: IN GENERAL: On examination the patient is awake, alert. He is currently with nasal cannula. VITAL SIGNS: His blood pressure in the lower side and he is on. Pressors the last blood pressure recorded is 111/64 but his systolic has been as low as 61 and diastolic was 38. HEAD, EYES, EARS, NOSE, AND THROAT: Pupils are mid constricted. Nonicteric sclera, conjunctiva pale. NECK: Supple. JVD slightly elevated. LUNGS: The patient has bilateral decreased air entry with basilar rales and scattered wheezing. HEART: S1, s2, irregular rhythm. ABDOMEN: Abdomen is distended, soft lax. There is no tenderness. EXTREMITIES: He has mild edema in the legs INVESTIGATIONS: WBC count 8.5, hemoglobin 12.1, platelet count of 173, sodium 144, Potassium 4.5, chloride 103, bicarb 28.8, BUN 31, creatinine 6.7. Calcium 8.3. I is 1.47, INR is 2.9. IMAGING STUDIES The patient has chest x-ray done and showed that he has increased vascular marking with and pulmonary congestion. ASSESSMENT/PLAN 1. Hypotension. 2. History of severe aortic stenosis. 3. Tachycardia. 4. End-stage renal disease on hemodialysis. 5. Pulmonary congestion and edema. 6. Anemia. 7. The patient has low blood pressure and this has been going on for some time with tachycardia. He was seen by the acting instructor when he was here the last time and his medications were adjusted and he was on beta-anita. 8. Cardiology has been consulted. We will wait for further input from them. He has last echocardiogram done on April 27 and it shows that he has 50-55% percent of ejection fraction. There was patent, foramen ovale, moderate mitral regurgitation and mild aortic regurgitation with severe aortic stenosis. 9. The patient will be dialyzed today because of pulmonary congestion and I have spoke to Dr. Navarrete, his blood pressure was lower side. Will try to remove two to three liters if it is possible and will hold Epogen since his hemoglobin is above 12. Most likely he will need dialysis tomorrow again. Thank you for the consultation. I will follow the patient while in the hospital. MD KELI Copeland/mainor /11:15 AM /11:38 AM
[2017-05-14 13:02] LABS: HEMATOCRIT 40.2 % (39.0-51.0); HEMOGLOBIN 12.7 GM/DL (13.0-17.0); MEAN CELL VOLUME 106.8 FL (80.0-100.0); MEAN CORPUSCULAR HEMOGLOBIN 33.7 PG (27.0-34.0); MEAN CORPUSCULAR HGB CONC 31.5 % (32.0-36.0); MEAN PLATELET VOLUME 9.6 FL (7.0-11.0); PLATELET COUNT 283 TH/MM3 (150-450); RED BLOOD COUNT 3.77 MIL/MM3 (4.50-5.90); RED CELL DISTRIBUTION WIDTH 18.1 % (11.6-17.2); WHITE BLOOD COUNT 10.1 TH/MM3 (4.0-11.0)
--- NOTE | 2017-05-14 14:20 | PD.WCN.NOT ---
Wound Consult Description: Received consult from Doctor Rach for pressure ulcer to sacral area. Communicated with: KATHERYN PALACIOS and Doctor Landon Recommendation: 1.Please cleanse wound to L side of coccyx with normal saline and pat dry and apply Maxorb II to wound bed only loosely packed. Apply skin prep to periwound and cover with bordered gauze. Change dressing every 2 days or PRN if saturated or dislodged. 2. Please apply bilateral heel boots. 3. Turn patient every 2 hours and PRN for comfort and offloading pressure from ju prominences. Additional Information: Patient seen on [facility] for evaluation of Pressure ulcer to sacral area. Patient was turned to R side with the assistance of Katelyn PALACIOS and comic writer.Patient bilateral buttocks is noted with barrier cream in place. Removed some barrier cream with normal saline and gauze pad to reveal stage 3 pressure injury to L side of coccyx. Wound measures 0.9cm x 0.4cm x 0.3cm . Periwound presents with scattered small areas of partial thickness skin loss. Wound bed presents with ~ 50%moist pink tissue and ~50% adipose tissue. Wound is draining minimal sero- sanguinous drainage without odor.Wound margins are well defined and wound has round shape. Cleansed wound and small areas of partial thickness skin loss with normal saline and gauze pad. Wound is left open to air for now. KATHERYN Zepeda to apply dressing when supplies obtained from [facility]. Thick cloth pad under patient was removed and replaced with clean ultrasorb pad. Patient was then positioned to R side with pillow in place for support. Patient is laying on Sammi bed low air loss mattress, microclimate management is on and bed is set to proper inflation for patient's weight. Bailee Acuna [facility] May 14, 2017 14:20
[2017-05-14] MEDS: CINACALCET HYDROCHLORIDE 30 MG TAB PO SCH (14:27)
--- NOTE | 2017-05-14 15:09 | EKG ---
Date Performed: 05/13/2017 Time Performed: 19:11:59 PTAGE: 76 years EKG: ATRIAL FIBRILLATION WITH RAPID VENTRICULAR RESPONSE LEFT ANTERIOR FASCICULAR BLOCK VOLTAGE CRITERIA FOR LVH MARKED ST DEPRESSION, CONSIDER SUBENDOCARDIAL INJURY Since previous tracing, no sig nificant change noted ABNORMAL ECG PREVIOUS TRACING : 05/13/2017 14.47 DOCTOR: Lisa Caballero Interpretating Date/Time 05/14/2017 15:08:56
--- NOTE | 2017-05-14 15:09 | EKG ---
Date Performed: 05/13/2017 Time Performed: 14:47:03 PTAGE: 76 years EKG: ATRIAL FIBRILLATION WITH RAPID VENTRICULAR RESPONSE MARKED LEFT AXIS DEVIATION MINIMAL VOLT AGE CRITERIA FOR LVH, CONSIDER NORMAL VARIANT SEPTAL MYOCARDIAL INFARCTION MARKED ST DEPRESSION, CONS IDER SUBENDOCARDIAL INJURY Since previous tracing, no significant change noted ABNORMAL ECG PREVIOUS TRACING : 04/25/2017 02.46.38 DOCTOR: Lisa Caballero Interpretating Date/Time 05/14/2017 15:08:42
[2017-05-14] MEDS: metroNIDAZOLE 500 MG TAB PO SCH ×2 (16:51→20:46)
--- NOTE | 2017-05-14 20:00 | MB ---
cc: JEFFREY WEST DO DATE OF CONSULTATION: 05/14/2017. REASON FOR CONSULTATION: Atrial fibrillation with rapid ventricular response, aortic stenosis. HISTORY OF PRESENT ILLNESS: Alvaro Young is a 76-year-old male who presented to [facility] on due to atrial fibrillation with rapid ventricular response as well as hypotension. The patient was recently here for around 21 days from mid April until May 11, and was just discharged on May 11. He went to hemodialysis and while at the dialysis center was noted to have heart rates in the 140s to 150s with hypotension and so he was transferred to the emergency room. On arrival, he was found to be in atrial fibrillation with rapid ventricular response. He was given fluids and started on amiodarone drip. Because of his persistent hypotension with atrial fibrillation with rapid ventricular response, he was seen by critical care and he was given a dose of Digoxin as well as placed on a Cardizem drip and phenylephrine drip. On seeing him, heart rates are better controlled with a blood pressure that is stable and currently on Cardizem and phenylephrine drip. The patient was previously tachypneic per the critical care team but now appears relatively stable but guarded. PAST MEDICAL HISTORY: 1. Severe aortic stenosis by echocardiogram. 2. Coronary artery disease. 3. Hypertension. 4. Diabetes mellitus type 2. 5. Hyperlipidemia. 6. History of PFO. 7. Atrial fibrillation. 8. End-stage renal disease on hemodialysis Wednesday, , Wednesday. 9. Anemia of chronic disease. 10. Poor dentition. 11. History of C. Difficile. PAST SURGICAL HISTORY: 1. Cardiac catheterization (April 01, 2017). Left main relatively normal. Left anterior descending has a focal 80% stenosis in the proximal to midportion but otherwise good runoff. It gives off four small diagonals with the second diagonal having 80% to 90% stenosis and a 1.5 mm vessel. The left circumflex with no significant disease. First obtuse marginal with 20% disease. Right coronary artery with 30% to 40% disease in the proximal portion. 2. AV fistula for hemodialysis. 3. Pilonidal cyst removal. ALLERGIES: NO KNOWN DRUG ALLERGIES. MEDICATIONS: 1. Coumadin 1 milligram daily. 2. Metoprolol tartrate 100 milligrams twice a day. 3. Renvela 2400 three times a day. 4. Sensipar 30 milligrams daily. 5. Allopurinol 100 milligrams daily. FAMILY HISTORY: Denies premature coronary artery disease or sudden cardiac within the family. SOCIAL HISTORY: Denies tobacco, alcohol or drug abuse. REVIEW OF SYSTEMS Difficult to ascertain due to the critical nature of the patient. PHYSICAL EXAMINATION VITAL SIGNS: Temperature 97.7, heart rate 110, blood pressure 111/64, respirations 18, pulse oximetry 98% on two liters. GENERAL: In general, the patient appears elderly and somewhat lethargic and overall critically ill. HEAD, EYES, EARS, NOSE, THROAT: Extraocular muscles intact. Mucous membranes moist. NECK: The neck is supple. Mild JVD at 45 degrees. Heart is irregularly irregular and tachycardic. A 3/6 crescendo/decrescendo murmur is noted to the right sternal border. LUNGS: Decreased breath sounds with minimal rales bilaterally. ABDOMEN: The abdomen is soft, nontender and nondistended. No organomegaly noted. EXTREMITIES: 1+ pitting edema bilaterally. NEUROLOGIC: No focal deficits. SKIN: Warm, dry and intact. OSTEOPATHIC: Osteopathically, no kyphoscoliosis, lordosis or paraspinal tender points. LAB WORK: Hemoglobin 12.7, hematocrit 40.2, platelet count 283,000. INR 2.9. Potassium 4.5, BUN 31, creatinine 6.78, lactic acid 1.9. Troponin 1.47. EKGS: Electrocardiogram (May 13, 2017 at 1911): Atrial fibrillation with rapid ventricular response, left anterior fascicular block, voltage criteria for LVH, S-T-T wave changes noted throughout possibly due to ischemia. IMPRESSION: 1. Atrial fibrillation with rapid ventricular response. 2. Shock, which is multifactorial in nature. 3. Acute congestive heart failure most likely due to atrial fibrillation with rapid ventricular response. 4. NSTEMI. 5. Possible sepsis. 6. Severe aortic stenosis (peak gradient 94, mean gradient 55, aortic valve area is 0.5). 7. Supratherapeutic INR. 8. Coronary artery disease with known left anterior descending stenosis. 9. End-stage renal disease on hemodialysis. 10. Recent history of C. difficile colitis. 11. Diabetes mellitus. 12. Hypertension. 13. Chronic atrial fibrillation. RECOMMENDATIONS: 1. Mr. Young obviously presented in a critical state and will be watched in the intensive care unit. 2. As far as his atrial fibrillation goes, I agree with giving him Digoxin and not attempting to place him on Cardizem with phenylephrine if possible to help keep his mean arterial pressure above 65. 3. If further episodes of atrial fibrillation with rapid ventricular response, may need to further load him with Digoxin. 4. I did discuss with Dr. Garcia and Dr. Navarrete, each individually, the possibility of a balloon valvuloplasty before discharge, although his overall sickness makes this difficult. He would also need intervention on his left anterior descending before consideration. Will discuss further based on the hospital course. 5. Further recommendations will be made based on the hospital course. Thank you for allowing me to see Alvaro Young. If there are any questions, please do not hesitate to call. Jeffrey West DO P/JCC /4:02 PM /7:30 PM
[2017-05-15] VITALS (52 sets, daily range): BP systolic 76–138; BP diastolic 47–66; PULSE 79–113; RESP 10–57; TEMP 96.6–98.9; O2SAT 87–100
[2017-05-15] MEDS: DILTIAZEM INJ 125 MG in SODIUM CHLORIDE 0.9% INJ 100 ML IV PRN (01:06)
[2017-05-15] MEDS: AMIODARONE INJ 450 MG in SODIUM CHLOR 0.9% (EXCEL) INJ 241 ML IV PRN (01:06)
[2017-05-15] MEDS: CHLORHEXIDINE GLUCONATE 2 % 1 PACK (2 CLOTHS)(taper/protocol) TOPICAL SCH (05:50)
[2017-05-15] MEDS: metroNIDAZOLE 500 MG TAB PO SCH ×3 (05:50→23:01)
[2017-05-15] MEDS: PHENYLEPHRINE 40 MG in D5W 500 ML IV PRN (05:51)
[2017-05-15 06:03] LABS: PROTHROMBIN TIME - PATIENT 30.4 SEC (9.8-11.6)
[2017-05-15 06:36] LABS: ALBUMIN 3.3 GM/DL (3.4-5.0); ALKALINE PHOSPHATASE 57 U/L (45-117); ALT (GPT) 38 U/L (12-78); AST (GOT) 27 U/L (15-37); BICARBONATE 30.2 MEQ/L (21.0-32.0); BLOOD UREA NITROGEN 21 MG/DL (7-18); CALCIUM 8.2 MG/DL (8.5-10.1); CHLORIDE 99 MEQ/L (98-107); CREATININE 5.08 MG/DL (0.60-1.30); GLOMERULAR FILTRATION RATE 11 ML/MIN (>89); GLUCOSE,RANDOM 89 MG/DL (74-106); SODIUM (NA) 139 MEQ/L (136-145); TOTAL BILIRUBIN ADULT 1.2 MG/DL (0.2-1.0); TOTAL PROTEIN 6.1 GM/DL (6.4-8.2)
--- NOTE | 2017-05-15 07:31 | HHI.CCPN ---
Subjective Remarks/Hospital Course Patient is a 76-year-old male with past medical history significant for recurrent CHF exacerbation, severe aortic stenosis (peak 94, mean 55, NATA 0.5) CAD with LAD lesion, end-stage renal disease on hemodialysis, history of C. difficile colitis, diabetes hypertension, atrial fibrillation. Patient was recently discharged from [facility] on 05/10/2017. Per hospitalist admit note, patient went to hemodialysis from [facility] and at the dialysis center, his heart rate was 140s to 150s, with hypotension and was transferred to ED. On arrival he was in A. fib with RVR. Patient was given 1.5 L of normal saline overnight, an additional 500 mL in a.m. for persistent hypotension. Despite being started on amiodarone patient remained in A. fib with RVR with rate 120-140s and hypotensive. Patient also was slightly tachypneic but maintaining oxygen saturation. Critical care medicine was consulted for persistent hypotension and A. fib with RVR. His troponin also had peaked at 1.47. He has had known LAD lesion on cardiac catheterization done in March 2017. He was advised to wait on the TAVR/PCI until dental extraction, and his recurrent C. difficile is resolved. He is on by mouth vancomycin at the nursing facility for the treatment of C. difficile. I evaluated the patient immediately in the ICU. His systolic blood pressure varying from mid 70s to mid 80s. Currently on amiodarone infusion. Patient is slightly tachypneic but appears critically ill, pale. I have started Yosef- Synephrine to support blood pressure, keep map above 65, start Cardizem infusion for better rate control. Loaded with digoxin IV 0.25 mg 1. May need DCCV if rate not controlled due to hypotension and sev . To cover for sepsis started patient on vancomycin and Zosyn also added p.o. Flagyl. Check influenza and C Diff. Discussed with Dr. Ortiz and Dr. Nielson. SUBJ 05/15/17: Patient remains critically ill but stable to slightly improved. Remains on Yosef-Synephrine at 30 mcg/min. also on amiodarone and Cardizem infusion for rate control. Start Cardizem p.o. and attempt to wean to DC Cardizem infusion. I will discontinue amiodarone. INR remains therapeutic at 3 -will not start heparin yet Objective Vital Signs Date Time Temp Pulse Resp B/P (MAP) Pulse Ox O2 Delivery O2 Flow Rate FiO2 05/15/17 07:12 97 Nasal Cannula 2.00 05/15/17 06:00 83 05/15/17 05:51 99/57 05/15/17 00:00 96.6 26 05/13/17 20:33 40 Intake and Output 05/15/17 05/15/17 05/16/17 08:00 16:00 00:00 Intake Total 1706 ml Output Total 0 ml Balance 1706 ml Result Diagram: 05/14/17 1114 05/15/17 0345 Other Results Microbiology Date/Time Source Procedure Growth Status 05/14/17 12:40 Nasal Aspirate Influenza Types A,B Antigen (ANIBAL) - Final NEGATIVE FOR FLU A AND B ANTIGEN.... Complete Laboratory Tests Test 05/14/17 07:30 Blood Gas Puncture Site LT RADIAL Blood Gas Patient Temperature 98.6 Blood Gas HCO3 22 mmol/L (22-26) Blood Gas Base Excess -3.0 mmol/L (-2-2) Blood Gas Oxygen Saturation 95 % (90-100) Arterial Blood pH 7.34 (7.380-7.420) Arterial Blood Partial Pressure CO2 42 mmHg (38-42) Arterial Blood Partial Pressure O2 100 mmHg (61-120) Arterial Blood Oxygen Content 15.4 Vol % (12.0-20.0) Arterial Blood Carboxyhemoglobin 1.3 % (0-4) Arterial Blood Methemoglobin 1.2 % (0-2) Blood Gas Hemoglobin 11.4 G/DL (12.0-16.0) Oxygen Delivery Device NASAL CANNULA Blood Gas Liter Flow 2 L/M Imaging Chest x-ray shows pulmonary vascular congestion and right sided effusion Objective Remarks GENERAL: This is a elderly gentleman, appears critically ill and hypotensive SKIN: No rashes. Cool and dry. HEAD: Atraumatic. Normocephalic. No temporal or scalp tenderness. EYES:No scleral icterus. No injection or drainage. ENT: Airway patent. NECK: Trachea midline. Positive JVD CARDIOVASCULAR: Irregularly irregular, crescendo decrescendo murmur at LSB, hypotensive, on Yosef-Synephrine RESPIRATORY: Bilateral basilar rales. No wheezes GASTROINTESTINAL: Abdomen soft, non-tender, nondistended. No hepato-splenomegaly MUSCULOSKELETAL: Extremities without clubbing, cyanosis. 1+ pitting edema. Left fore arm fistula in place NEUROLOGICAL: Awake and alert. Motor and sensory grossly within normal limits. Follows commands normal speech A/P Assessment and Plan ASSESSMENT: Shock multifactorial Atrial fibrillation with RVR Congestive heart failure Elevated troponin Probable sepsis Coagulopathy secondary to Coumadin/supratherapeutic INR Severe aortic stenosis (peak 94, mean 55, NATA 0.5) CAD with LAD lesion End-stage renal disease on hemodialysis Recent history of C. difficile colitis Diabetes Hypertension Chronic atrial fibrillation PLAN: NEURO: -Minimize all sedation -Encephalopathy most likely metabolic, improving RESP: -Nasal cannula oxygen. Keep oxygen saturation above 90% -DuoNeb every 6 hours as needed CV: -Yosef-Synephrine to keep map above 65 -DC amiodarone infusion, added Cardizem PO today 30 mg q6, wean Cardizem infusion for rate control -Digoxin 0.25 mg IV 1 given 05/14. Continue renally adjusted dose if needed -Coumadin on hold due to supra therapeutic INR. Consult pharmacy to dose coumadin -Aspirin 81 mg daily -No beta-blockers due to hypotension -Hemodialysis with 2.5 L fluid removed 05/14 -Cardiology Dr. Ortiz discussed with him -Discussed with CTS Dr. Nielson, may need balloon valvuloplasty for severe aortic stenosis, once more stable GI: -Renal diet, IV famotidine : -End-stage renal disease on hemodialysis -s/p 2.5 L removal 05/14/2017 ID: -IV vancomycin, IV Zosyn, p.o. Flagyl -Follow-up on cultures influenza negative, check C. difficile if diarrhea persists HEME: -Monitor CBC, CMP, INR -Coumadin on hold due to subtherapeutic INR, consult pharmacy to dose Coumadin ENDO: -Monitor electrolytes closely PROPH: -Bilateral lower extremity SCDs. INR supra therapeutic. IV famotidine LINES: - RIJ central line placed 05/15/17 CC time 35 min excluding procedural time Remains critically ill but stabilizing requiring Yosef-Synephrine to maintain blood pressure, requiring IV Cardizem and amiodarone infusion to maintain heart rate below 100. Mendoza Navarrete MD May 15, 2017 07:31
[2017-05-15] MEDS ORDERED: RESP: ALBUTEROL 2.5 MG/IPRATROPIUM 0.5 MG NEB (PRN) NEB (07:45)
--- NOTE | 2017-05-15 08:05 | RADRPT ---
EXAM DATE/TIME: 05/15/2017 07:26 [place] COMPARISON: CHEST SINGLE AP, May 14, 2017, 9:41. INDICATIONS : Short of breath. MEDICAL HISTORY : Hypertension. Dialysis. SURGICAL HISTORY : AV fistula. Pilonidial cyst. ENCOUNTER: [facility] ACUITY: 1 week PAIN SCORE: Non-responsive. LOCATION: Bilateral chest FINDINGS: Single view of the chest demonstrates a stable right-sided central line. There is improved aeration o f the right hemithorax a with improved aeration of the right upper lobe. There is also improved aerat ion of the left upper lobe. There are persistent bilateral pleural effusions, moderate in size. Cardi omegaly and extensive atherosclerosis. CONCLUSION: Improved aeration of the right and left upper lungs. Resistant moderate sized pleural effusions with adjacent atelectasis/consolidation of the lower lobes. Cardiomegaly with cephalization of pulmonary v asculature consistent with volume overload versus congestive heart failure.. Negar Saeed MD on May 15, 2017 at 8:01 Board Certified Radiologist. This report was verified electronically.
[2017-05-15] MEDS: ALLOPURINOL 100 MG TAB PO SCH (08:44)
[2017-05-15] MEDS: CINACALCET HYDROCHLORIDE 30 MG TAB PO SCH (08:44)
[2017-05-15] MEDS: SEVELAMER CARBONATE 800 MG TAB PO SCH ×3 (08:45→18:01)
[2017-05-15] MEDS: PIPERACIL-TAZO 2.25 GM PREMIX 50 ML IV SCH ×3 (08:45→23:01)
[2017-05-15] MEDS: ASPIRIN 81 MG CHEW TAB CHEW SCH (08:45)
[2017-05-15] MEDS: DILTIAZEM HCL 30 MG TAB PO SCH ×3 (08:45→19:56)
[2017-05-15] MEDS: CHLORHEXIDINE 0.12% (ORAL KIT) 15 ML CUP SWISH-SPIT SCH ×3 (08:45→17:53)
[2017-05-15] MEDS: ALBUMIN 25% INJ 100 ML IV PRN (09:38)
[2017-05-15] MEDS: GELATIN 12 MM/7 MM FOAM TOP PRN (09:42)
--- NOTE | 2017-05-15 11:02 | HHI.NPPN ---
Subjective History of Present Illness 76-year-old male known to me from before with past medical history of hypertension, diabetes mellitus, hyperlipidemia, severe aortic stenosis, atrial fibrillation, chronic anemia, who was recently discharged from the hospital and brought back because of hypotension from the dialysis. The patient has been on regular dialysis Wednesday, and Wednesday. Additional Remarks Patient is alert, now on HD, no dizziness, no SOB, not in distress. Objective Data Data Vital Signs Date Time Temp Pulse Resp B/P (MAP) Pulse Ox O2 Delivery O2 Flow Rate FiO2 05/15/17 10:00 89 12 99/55 (70) 100 05/15/17 09:45 90 20 104/66 (79) 100 05/15/17 09:42 79 20 100/63 (75) 100 05/15/17 09:30 83 18 101/59 (73) 100 05/15/17 09:15 88 19 93/51 (65) 100 05/15/17 09:00 86 18 90/57 (68) 100 05/15/17 08:46 80 18 90/57 (68) 100 05/15/17 08:30 84 19 95/54 (68) 99 05/15/17 08:15 80 17 84/56 (65) 98 05/15/17 08:00 98.0 81 14 93/51 (65) 100 05/15/17 07:12 97 Nasal Cannula 2.00 05/15/17 06:00 83 05/15/17 05:51 85 99/57 05/15/17 04:00 82 97/61 (73) 100 05/15/17 04:00 82 05/15/17 02:00 83 05/15/17 02:00 83 109/66 05/15/17 02:00 83 109/66 05/15/17 01:06 70 100/56 05/15/17 01:06 70 100/56 05/15/17 00:00 83 05/15/17 00:00 96.6 83 26 117/66 (83) 99 05/15/17 00:00 83 117/66 05/15/17 00:00 83 117/66 05/14/17 22:00 66 98/55 05/14/17 22:00 66 98/55 05/14/17 22:00 66 05/14/17 20:00 96.4 89 19 116/55 (75) 85 05/14/17 20:00 89 05/14/17 20:00 89 116/55 05/14/17 20:00 89 116/55 05/14/17 19:00 87 27 109/58 (75) 82 05/14/17 19:00 87 05/14/17 18:00 74 05/14/17 18:00 74 18 106/56 (73) 100 05/14/17 17:00 94 57 104/61 (75) 98 05/14/17 17:00 94 05/14/17 16:00 98 05/14/17 16:00 97.6 98 15 112/60 (77) 98 05/14/17 15:10 88 101/57 05/14/17 15:00 99 28 101/57 (72) 99 05/14/17 15:00 99 05/14/17 14:25 94 113/61 05/14/17 14:00 99 11 98/74 (82) 100 05/14/17 14:00 99 05/14/17 13:00 99 17 113/72 (86) 100 05/14/17 13:00 99 05/14/17 12:00 98 05/14/17 12:00 97.7 98 14 118/80 (93) 100 05/14/17 11:30 96 05/14/17 11:00 108 05/14/17 11:00 108 17 105/75 (85) 99 -: 05/14/17 1114 05/15/17 0345 Microbiology 05/14/17 Aerobic Blood Culture, Received Pending 05/14/17 Anaerobic Blood Culture, Received Pending 05/14/17 Aerobic Blood Culture, Received Pending 05/14/17 Anaerobic Blood Culture, Received Pending 05/14/17 Influenza Types A,B Antigen (ANIBAL) - Final, Complete NEGATIVE FOR FLU A AND B ANTIGEN.... Physical Exam General Appearance: No Acute Distress, Comfortable Eyes Eye Exam: Pupils Equal Pulmonary Resp Exam: Breath Sounds Equal, No Distress, Rhonchi, Decreased Bases, Diminished Breath Sounds Cardiology CV Exam: Normal Sinus Rhythm, Irregular, Arrhythmia Gastrointestinal/Abdomen GI Exam: Soft, Non-Tender, Bowel Sounds Present Extremeties Extremities Exam: Trace Edema Neurologic Neuro Exam: Alert, Awake Psychiatric Psych Exam: Appropriate Responses Assessment/Plan Assessment Summary: Hypotension, End Stage Renal Disease Problem List: (1) Aortic valvar stenosis ICD Codes: I35.0 - Nonrheumatic aortic (valve) stenosis (2) ESRD (end stage renal disease) on dialysis ICD Codes: N18.6 - End stage renal disease; Z99.2 - Dependence on renal dialysis (3) Atrial fibrillation ICD Codes: I48.91 - Unspecified atrial fibrillation (4) Diabetes mellitus ICD Codes: E11.9 - Diabetes mellitus Status: Chronic (5) Hypotension ICD Codes: I95.9 - Hypotension, unspecified Status: Acute Plan Patient has End stage renal disease. Was send to Hospital due to Hypotension and tachycardia. BP is on lower side, but stable. HR controlled. On Amiodarone, and Diltiazem. Seen by cardiology, HD now removing 1.5 liters as tolerated. Problem Qualifiers (1) Atrial fibrillation: Qualified Codes: I48.91 - Unspecified atrial fibrillation Quiana Mayers MD May 15, 2017 11:02
--- NOTE | 2017-05-15 12:22 | PD.CARD.PN ---
Subjective Subjective Remarks Doing better overall Currently on Amiodarone/Cardizem/Yosef drip No chest pain/SOB Objective Medications Current Medications Medications (Trade) Dose Ordered Sig/Jamal Route Start Time Stop Time Status Last Admin (NS Flush) 2 ml UNSCH PRN IV FLUSH 05/13/17 19:45 (NS Flush) 2 ml BID IV FLUSH 05/13/17 21:00 05/14/17 20:46 (Narcan Inj) 0.4 mg UNSCH PRN IV PUSH 05/13/17 19:45 (Zyloprim) 100 mg DAILY PO 05/14/17 09:00 05/15/17 08:44 (Sensipar) 30 mg DAILY PO 05/14/17 09:00 05/15/17 08:44 (Renvela) 2,400 mg TID PO 05/14/17 09:00 05/15/17 08:45 (Peridex 0.12% Liq) 15 ml TID SWISH-SPIT 05/14/17 09:00 05/14/17 17:58 Miscellaneous Information Patient in critical care unit? Ass... [id number] .XX 05/14/17 05:30 (Chlorhexidine 2% Cloth) 3 pack DAILY@04 TOPICAL 05/15/17 04:00 05/19/17 04:01 05/15/17 05:50 (Chlorhexidine 2% Cloth) 3 pack UNSCH PRN TOPICAL 05/14/17 05:30 05/19/17 05:28 (Aspirin Chew) 81 mg DAILY CHEW 05/14/17 09:00 05/15/17 08:45 Diltiazem HCl 125 mg/Sodium Chloride 125 ml @ 5 mls/hr TITRATE PRN IV 05/14/17 07:00 05/15/17 01:06 Phenylephrine HCl 40 mg/Dextrose 500 ml @ 30 mls/hr TITRATE PRN IV 05/14/17 08:00 05/15/17 05:51 (Brethine Inj) 1 mg UNSCH PRN SQ 05/14/17 08:00 Piperacillin Sod/ Tazobactam Sod 50 ml @ 100 mls/hr Q8H IV 05/14/17 08:00 05/15/17 08:45 Pharmacy Profile Note 0 ml @ 0 mls/hr UNSCH OTHER 05/14/17 07:30 (Flagyl) 500 mg Q8HR PO 05/14/17 14:00 05/15/17 05:50 Sodium Chloride 1,000 ml @ 0 mls/hr Q0M PRN OTHER 05/14/17 11:21 (Heparin Inj) 8,000 units UNSCH PRN IV FLUSH 05/14/17 11:30 Sodium Chloride 1,000 ml @ 200 mls/hr Q5H PRN IV 05/14/17 11:21 Sodium Chloride 1,000 ml @ 0 mls/hr Q0M PRN OTHER 05/14/17 11:21 (Mannitol Inj) 12.5 gm UNSCH PRN IV 05/14/17 11:30 Albumin Human 100 ml @ 60 mls/hr UNSCH PRN IV 05/14/17 11:30 05/15/17 09:38 (NS Flush) 5 ml UNSCH PRN IV FLUSH 05/14/17 11:30 (Heparin Inj) UNSCH PRN .XX 05/14/17 11:30 (Gentamicin Inj) 20 mg UNSCH PRN OTHER 05/14/17 11:30 (Zofran Inj) 4 mg UNSCH PRN IV PUSH 05/14/17 11:30 (Tylenol) 650 mg UNSCH PRN PO 05/14/17 11:30 (Benadryl) 25 mg UNSCH PRN PO 05/14/17 11:30 (Nitrostat Sl) 0.4 mg UNSCH PRN SL 05/14/17 11:30 (Catapres) 0.1 mg UNSCH PRN PO 05/14/17 11:30 (Gelfoam 12 Mm/7 Mm Top) 1 foam UNSCH PRN TOP 05/14/17 11:30 05/15/17 09:42 (Cardizem) 30 mg Q6H PO 05/15/17 08:00 05/15/17 08:45 Pharmacy Profile Note 0 ml @ 0 mls/hr UNSCH OTHER 05/15/17 07:45 (Duoneb Neb) 1 ampule Q4HR NEB PRN NEB 05/15/17 07:45 Vital Signs / I&O Vital Signs Date Time Temp Pulse Resp B/P (MAP) Pulse Ox O2 Delivery O2 Flow Rate FiO2 05/15/17 10:00 89 12 99/55 (70) 100 05/15/17 09:45 90 20 104/66 (79) 100 05/15/17 09:42 79 20 100/63 (75) 100 05/15/17 09:30 83 18 101/59 (73) 100 05/15/17 09:15 88 19 93/51 (65) 100 05/15/17 09:00 86 18 90/57 (68) 100 05/15/17 08:46 80 18 90/57 (68) 100 05/15/17 08:30 84 19 95/54 (68) 99 05/15/17 08:15 80 17 84/56 (65) 98 05/15/17 08:00 98.0 81 14 93/51 (65) 100 05/15/17 07:12 97 Nasal Cannula 2.00 05/15/17 06:00 83 05/15/17 05:51 85 99/57 05/15/17 04:00 82 97/61 (73) 100 05/15/17 04:00 82 05/15/17 02:00 83 05/15/17 02:00 83 109/66 05/15/17 02:00 83 109/66 05/15/17 01:06 70 100/56 05/15/17 01:06 70 100/56 05/15/17 00:00 83 05/15/17 00:00 96.6 83 26 117/66 (83) 99 05/15/17 00:00 83 117/66 05/15/17 00:00 83 117/66 05/14/17 22:00 66 98/55 05/14/17 22:00 66 98/55 05/14/17 22:00 66 05/14/17 20:00 96.4 89 19 116/55 (75) 85 05/14/17 20:00 89 05/14/17 20:00 89 116/55 05/14/17 20:00 89 116/55 05/14/17 19:00 87 27 109/58 (75) 82 05/14/17 19:00 87 05/14/17 18:00 74 05/14/17 18:00 74 18 106/56 (73) 100 05/14/17 17:00 94 57 104/61 (75) 98 05/14/17 17:00 94 05/14/17 16:00 98 05/14/17 16:00 97.6 98 15 112/60 (77) 98 05/14/17 15:10 88 101/57 05/14/17 15:00 99 28 101/57 (72) 99 05/14/17 15:00 99 05/14/17 14:25 94 113/61 05/14/17 14:00 99 11 98/74 (82) 100 05/14/17 14:00 99 05/14/17 13:00 99 17 113/72 (86) 100 05/14/17 13:00 99 I/O 05/14/17 05/14/17 05/14/17 05/15/17 05/15/17 05/15/17 07:00 15:00 23:00 07:00 15:00 23:00 Intake Total 250 ml 300 ml 1756 ml Output Total 2500 ml 0 ml Balance 250 ml -2200 ml 1756 ml Intake IV Total 250 ml 300 ml 1756 ml Output Urine Total 0 ml 0 ml Stool Total 0 ml Hemodialysis 2500 ml # Bowel Movements 0 Physical Exam GENERAL: NAD, AAOx3 SKIN: Warm and dry. HEAD: Atraumatic. Normocephalic. EYES: Pupils equal and round. No scleral icterus. No injection or drainage. ENT: No nasal bleeding or discharge. Mucous membranes pink and moist. NECK: Trachea midline. No JVD. CARDIOVASCULAR: Irregularly irregular, 3/6 crescendo-decrescendo murmur to the RSB RESPIRATORY: No accessory muscle use. Clear to auscultation. Breath sounds equal bilaterally. GASTROINTESTINAL: Abdomen soft, non-tender, nondistended. Hepatic and splenic margins not palpable. MUSCULOSKELETAL: Extremities without clubbing, cyanosis, or edema. No obvious deformities. NEUROLOGICAL: Awake and alert. No obvious cranial nerve deficits. Motor grossly within normal limits. Five out of 5 muscle strength in the arms and legs. Normal speech. PSYCHIATRIC: Appropriate mood and affect; insight and judgment normal. Laboratory Laboratory Tests Test 05/14/17 16:50 05/15/17 03:45 Activated Partial Thromboplast Time 31.2 SEC Troponin I 1.34 NG/ML Prothrombin Time 30.4 SEC Prothromb Time International Ratio 3.0 RATIO Blood Urea Nitrogen 21 MG/DL Creatinine 5.08 MG/DL Random Glucose 89 MG/DL Total Protein 6.1 GM/DL Albumin 3.3 GM/DL Calcium Level 8.2 MG/DL Alkaline Phosphatase 57 U/L Aspartate Amino Transf (AST/SGOT) 27 U/L Alanine Aminotransferase (ALT/SGPT) 38 U/L Total Bilirubin 1.2 MG/DL Sodium Level 139 MEQ/L Potassium Level 3.8 MEQ/L Chloride Level 99 MEQ/L Carbon Dioxide Level 30.2 MEQ/L Anion Gap 10 MEQ/L Estimat Glomerular Filtration Rate 11 ML/MIN Imaging Last 24 hours Impressions Chest X-Ray 05/15/17 0000 Signed Impressions: Service Date/Time: Monday, May 15, 2017 07:26 - CONCLUSION: Improved aeration of the right and left upper lungs. Resistant moderate sized pleural effusions with adjacent atelectasis/consolidation of the lower lobes. Cardiomegaly with cephalization of pulmonary vasculature consistent with volume overload versus congestive heart failure.. Negar Saeed MD Assessment and Plan Problem List: (1) Aortic valvar stenosis ICD Codes: I35.0 - Nonrheumatic aortic (valve) stenosis (2) ESRD (end stage renal disease) on dialysis ICD Codes: N18.6 - End stage renal disease; Z99.2 - Dependence on renal dialysis (3) Atrial fibrillation ICD Codes: I48.91 - Unspecified atrial fibrillation (4) Diabetes mellitus ICD Codes: E11.9 - Diabetes mellitus Status: Chronic (5) Hypotension ICD Codes: I95.9 - Hypotension, unspecified Status: Acute (6) End stage renal disease on dialysis ICD Codes: N18.6 - End stage renal disease on dialysis; Z99.2 - Dependence on renal dialysis Status: Acute (7) CAD (coronary artery disease) ICD Codes: I25.10 - Atherosclerotic heart disease of [place] coronary artery without angina pectoris Assessment and Plan 1) Afib Now better controlled Will stop Amiodarone drip Transfer Cardizem to PO 2) Shock Most likely cardiogenic with Afib with RVR as well as his aortic stenosis 3) Overall believe his admission is based on his Afib with RVR 4) Severe Consideration of PCI with BAV, as any time he goes into RVR he's going to become shock-like, will have to see how he does Would end up being BMS of LAD as needs dental work Eventual TAVR, will need to have dental work first but having difficulty getting Oral Maxillofacial surgery saw him and wants to see outpt Problem Qualifiers (1) Atrial fibrillation: Qualified Codes: I48.91 - Unspecified atrial fibrillation Jeffrey Ortiz DO May 15, 2017 12:21
[2017-05-15] MEDS: ACETAMINOPHEN 325 MG TAB PO PRN ×2 (13:39→20:07)
[2017-05-15] MEDS: SODIUM CHLORIDE 0.9% FLUSH 10 ML FLUSH IV FLUSH SCH ×2 (13:39→19:56)
[2017-05-16] VITALS (44 sets, daily range): BP systolic 75–121; BP diastolic 51–97; PULSE 102–133; RESP 14–37; TEMP 97.6–98.8; O2SAT 91–100
[2017-05-16] MEDS: DILTIAZEM HCL 30 MG TAB PO SCH ×2 (02:08→08:32)
[2017-05-16] MEDS: CHLORHEXIDINE GLUCONATE 2 % 1 PACK (2 CLOTHS)(taper/protocol) TOPICAL SCH (02:08)
[2017-05-16 04:48] LABS: AUTOMATED NEUTROPHIL # 6.4 TH/MM3 (1.8-7.7); BASOPHIL % 0.3 % (0.0-2.0); EOSINOPHIL # 0.3 TH/MM3 (0-0.4); EOSINOPHIL % 3.4 % (0.0-4.0); HEMATOCRIT 34.4 % (39.0-51.0); LYMPH % 8.4 % (9.0-44.0); LYMPHOCYTE # 0.7 TH/MM3 (1.0-4.8); MEAN CELL VOLUME 103.4 FL (80.0-100.0); MEAN CORPUSCULAR HEMOGLOBIN 33.1 PG (27.0-34.0); MEAN PLATELET VOLUME 9.3 FL (7.0-11.0); MONO % 9.5 % (0.0-8.0); MONOCYTE # 0.8 TH/MM3 (0-0.9); NEUT % 78.4 % (16.0-70.0); PLATELET COUNT 165 TH/MM3 (150-450); RED BLOOD COUNT 3.33 MIL/MM3 (4.50-5.90); RED CELL DISTRIBUTION WIDTH 17.3 % (11.6-17.2); WHITE BLOOD COUNT 8.1 TH/MM3 (4.0-11.0)
[2017-05-16 05:08] LABS: INTERNATIONAL NORMALIZED RATIO 2.9 RATIO; PROTHROMBIN TIME - PATIENT 29.4 SEC (9.8-11.6)
[2017-05-16 05:11] LABS: ALBUMIN 3.5 GM/DL (3.4-5.0); ALT (GPT) 38 U/L (12-78); AST (GOT) 25 U/L (15-37); BICARBONATE 30.5 MEQ/L (21.0-32.0); BLOOD UREA NITROGEN 17 MG/DL (7-18); CALCIUM 7.7 MG/DL (8.5-10.1); CREATININE 4.36 MG/DL (0.60-1.30); GLOMERULAR FILTRATION RATE 13 ML/MIN (>89); GLUCOSE,RANDOM 99 MG/DL (74-106)
[2017-05-16] MEDS: metroNIDAZOLE 500 MG TAB PO SCH ×3 (05:57→21:35)
[2017-05-16 06:35] LABS: ALKALINE PHOSPHATASE 62 U/L (45-117); CHLORIDE 99 MEQ/L (98-107); RANDOM VANCOMYCIN 11.3 COMMENT; SODIUM (NA) 138 MEQ/L (136-145); TOTAL PROTEIN 6.3 GM/DL (6.4-8.2)
[2017-05-16] MEDS: PIPERACIL-TAZO 2.25 GM PREMIX 50 ML IV SCH ×3 (08:31→23:11)
[2017-05-16] MEDS: SEVELAMER CARBONATE 800 MG TAB PO SCH ×3 (08:31→18:43)
[2017-05-16] MEDS: ASPIRIN 81 MG CHEW TAB CHEW SCH (08:32)
[2017-05-16] MEDS: ACETAMINOPHEN 325 MG TAB PO PRN (08:32)
[2017-05-16] MEDS: CINACALCET HYDROCHLORIDE 30 MG TAB PO SCH (08:32)
[2017-05-16] MEDS: ALLOPURINOL 100 MG TAB PO SCH (08:32)
[2017-05-16] MEDS: SODIUM CHLORIDE 0.9% FLUSH 10 ML FLUSH IV FLUSH SCH ×2 (08:33→21:35)
[2017-05-16] MEDS: CHLORHEXIDINE 0.12% (ORAL KIT) 15 ML CUP SWISH-SPIT SCH (08:34)
--- NOTE | 2017-05-16 10:29 | HHI.NPPN ---
Subjective History of Present Illness 76-year-old male known to me from before with past medical history of hypertension, diabetes mellitus, hyperlipidemia, severe aortic stenosis, atrial fibrillation, chronic anemia, who was recently discharged from the hospital and brought back because of hypotension from the dialysis. The patient has been on regular dialysis Wednesday, and Wednesday. Additional Remarks Patient is alert, mild SOB, no dizziness, no SOB, not in distress. Objective Data Data Vital Signs Date Time Temp Pulse Resp B/P (MAP) Pulse Ox O2 Delivery O2 Flow Rate FiO2 05/16/17 07:20 100 Nasal Cannula 2.00 05/16/17 06:00 105 05/16/17 04:00 97.6 102 18 101/55 (70) 93 05/16/17 04:00 102 05/16/17 02:00 107 05/16/17 00:00 108 05/16/17 00:00 97.9 108 18 100/61 (74) 100 05/15/17 22:00 113 05/15/17 21:07 18 05/15/17 20:00 97.1 110 19 97/53 (68) 100 05/15/17 20:00 110 05/15/17 19:26 98 Nasal Cannula 3.00 05/15/17 18:45 106 20 85/48 (60) 100 05/15/17 18:30 101 22 81/50 (60) 100 05/15/17 18:15 104 24 91/51 (64) 100 05/15/17 18:00 105 24 93/50 (64) 100 05/15/17 17:47 102 33 81/53 (62) 98 05/15/17 17:45 97 22 76/47 (57) 97 05/15/17 17:30 97 22 98/56 (70) 100 05/15/17 17:15 89 38 94/55 (68) 100 05/15/17 17:00 101 34 91/57 (68) 100 05/15/17 16:45 96 54 89/64 (72) 100 05/15/17 16:30 100 48 92/52 (65) 100 05/15/17 16:15 98 47 85/63 (70) 100 05/15/17 16:00 98.9 100 52 94/64 (74) 100 05/15/17 15:45 88 36 86/62 (70) 100 05/15/17 15:30 87 57 94/60 (71) 100 05/15/17 15:15 95 50 90/64 (73) 100 05/15/17 15:00 94 38 88/56 (67) 100 05/15/17 14:45 89 50 84/48 (60) 100 05/15/17 14:30 87 39 100/56 (71) 100 05/15/17 14:16 96 36 112/63 (79) 100 05/15/17 14:00 100 33 102/58 (73) 100 05/15/17 13:45 98 37 92/60 (71) 100 05/15/17 13:30 92 25 97/57 (70) 99 05/15/17 13:15 100 19 94/52 (66) 98 05/15/17 13:00 92 13 100/55 (70) 89 05/15/17 12:45 93 14 90/53 (65) 87 05/15/17 12:30 97 15 88/51 (63) 96 05/15/17 12:15 101 14 94/53 (67) 98 05/15/17 12:11 103 14 100/59 (73) 98 05/15/17 12:00 97.7 94 17 80/52 (61) 100 05/15/17 11:45 95 15 110/53 (72) 100 05/15/17 11:31 91 10 138/64 (88) 100 05/15/17 11:15 98 12 94/55 (68) 100 05/15/17 11:00 94 14 107/58 (74) 100 -: 05/16/17 0330 05/16/17 0330 Physical Exam General Appearance: No Acute Distress, Comfortable Eyes Eye Exam: Pupils Equal Pulmonary Resp Exam: Breath Sounds Equal, No Distress, Rhonchi, Decreased Bases, Diminished Breath Sounds Cardiology CV Exam: Normal Sinus Rhythm, Irregular, Arrhythmia Gastrointestinal/Abdomen GI Exam: Soft, Non-Tender, Bowel Sounds Present Extremeties Extremities Exam: Trace Edema Neurologic Neuro Exam: Alert, Awake Psychiatric Psych Exam: Appropriate Responses Assessment/Plan Assessment Summary: Hypotension, End Stage Renal Disease Problem List: (1) Aortic valvar stenosis ICD Codes: I35.0 - Nonrheumatic aortic (valve) stenosis (2) ESRD (end stage renal disease) on dialysis ICD Codes: N18.6 - End stage renal disease; Z99.2 - Dependence on renal dialysis (3) Atrial fibrillation ICD Codes: I48.91 - Unspecified atrial fibrillation (4) Diabetes mellitus ICD Codes: E11.9 - Diabetes mellitus Status: Chronic (5) Hypotension ICD Codes: I95.9 - Hypotension, unspecified Status: Acute Plan Patient has End stage renal disease. Was send to Hospital due to Hypotension and tachycardia. BP is on lower side, but stable. HR controlled. On Amiodarone, and Diltiazem. Seen by cardiology, HD done yesterday, BP is still in same range. Problem Qualifiers (1) Atrial fibrillation: Qualified Codes: I48.91 - Unspecified atrial fibrillation Quiana Mayers MD May 16, 2017 10:29
--- NOTE | 2017-05-16 11:12 | HHI.CCPN ---
Subjective Remarks/Hospital Course Patient is a 76-year-old male with past medical history significant for recurrent CHF exacerbation, severe aortic stenosis (peak 94, mean 55, NATA 0.5) CAD with LAD lesion, end-stage renal disease on hemodialysis, history of C. difficile colitis, diabetes hypertension, atrial fibrillation. Patient was recently discharged from [facility] on 05/10/2017. Per hospitalist admit note, patient went to hemodialysis from [facility] and at the dialysis center, his heart rate was 140s to 150s, with hypotension and was transferred to ED. On arrival he was in A. fib with RVR. Patient was given 1.5 L of normal saline overnight, an additional 500 mL in a.m. for persistent hypotension. Despite being started on amiodarone patient remained in A. fib with RVR with rate 120-140s and hypotensive. Patient also was slightly tachypneic but maintaining oxygen saturation. Critical care medicine was consulted for persistent hypotension and A. fib with RVR. His troponin also had peaked at 1.47. He has had known LAD lesion on cardiac catheterization done in March 2017. He was advised to wait on the TAVR/PCI until dental extraction, and his recurrent C. difficile is resolved. He is on by mouth vancomycin at the nursing facility for the treatment of C. difficile. I evaluated the patient immediately in the ICU. His systolic blood pressure varying from mid 70s to mid 80s. Currently on amiodarone infusion. Patient is slightly tachypneic but appears critically ill, pale. I have started Yosef- Synephrine to support blood pressure, keep map above 65, start Cardizem infusion for better rate control. Loaded with digoxin IV 0.25 mg 1. May need DCCV if rate not controlled due to hypotension and sev . To cover for sepsis started patient on vancomycin and Zosyn also added p.o. Flagyl. Check influenza and C Diff. Discussed with Dr. Ortiz and Dr. Nielson. SUBJ 05/15/17: Patient remains critically ill but stable to slightly improved. Remains on Yosef-Synephrine at 30 mcg/min. also on amiodarone and Cardizem infusion for rate control. Start Cardizem p.o. and attempt to wean to DC Cardizem infusion. I will discontinue amiodarone. INR remains therapeutic at 3 -will not start heparin yet 05/16/17: Patient lying on the bed remains on 10 mics of Yosef-Synephrine. IV infusions of Cardizem and amiodarone had been stopped. Currently on p.o. Cardizem 30 mg every 6 hours- will increase to 60 q6. CXR continues to show bilateral effusion. Additional 0.125 mg digoxin 1 Objective Vital Signs Date Time Temp Pulse Resp B/P (MAP) Pulse Ox O2 Delivery O2 Flow Rate FiO2 05/16/17 10:30 108 23 92/55 (67) 98 05/16/17 08:00 98.0 05/16/17 07:20 Nasal Cannula 2.00 05/13/17 20:33 40 Intake and Output 05/16/17 05/16/17 05/17/17 08:00 16:00 00:00 Intake Total 211 ml Balance 211 ml Result Diagram: 05/16/17 0330 05/16/17 0330 Other Results Microbiology Date/Time Source Procedure Growth Status 05/14/17 12:40 Nasal Aspirate Influenza Types A,B Antigen (ANIBAL) - Final NEGATIVE FOR FLU A AND B ANTIGEN.... Complete Imaging Chest x-ray shows pulmonary vascular congestion and right sided effusion Objective Remarks GENERAL: This is a elderly gentleman, appears critically ill SKIN: No rashes. Cool and dry. HEAD: Atraumatic. Normocephalic. No temporal or scalp tenderness. EYES:No scleral icterus. No injection or drainage. ENT: Airway patent. NECK: Trachea midline. Positive JVD CARDIOVASCULAR: Irregularly irregular, crescendo decrescendo murmur at LSB, hypotensive, on Yosef-Synephrine RESPIRATORY: Bilateral minimal rales. No wheezes GASTROINTESTINAL: Abdomen soft, non-tender, nondistended. No hepato-splenomegaly MUSCULOSKELETAL: Extremities without clubbing, cyanosis. 1+ pitting edema. Left fore arm fistula in place NEUROLOGICAL: Awake and alert. Motor and sensory grossly within normal limits. Follows commands normal speech A/P Assessment and Plan ASSESSMENT: Atrial fibrillation with RVR Hypotension resolving Congestive heart failure Elevated troponin Probable sepsis Coagulopathy secondary to Coumadin/supratherapeutic INR Severe aortic stenosis (peak 94, mean 55, NATA 0.5) Bilateral pleural effusion secondary to CHF CAD with LAD lesion End-stage renal disease on hemodialysis Recent history of C. difficile colitis Diabetes Hypertension Chronic atrial fibrillation PLAN: NEURO: -Minimize all sedation -Encephalopathy most likely metabolic, improving RESP: -Nasal cannula oxygen. Keep oxygen saturation above 90% -DuoNeb every 6 hours as needed -Bilateral pleural effusion secondary to CHF continue fluid removal with dialysis CV: -Yosef-Synephrine to keep map above 65 -Cardizem PO today 30 mg q6, increase to 60 mg every 6, use Cardizem infusion PRN for rate control -Digoxin 0.25 mg IV 1 given 05/14. Give additional dose of 0.125 mg 1 today -Coumadin on hold due to supra therapeutic INR. Pharmacy to dose coumadin -Aspirin 81 mg daily -No beta-blockers due to hypotension -Hemodialysis per nephrology -Cardiology Dr. Ortiz, discussed with him -Discussed with CTS Dr. Nielson, may need balloon valvuloplasty for severe aortic stenosis, once more stable. PCI/TAVR later -Need his teeth extracted prior to any surgical intervention (Dr. Santiago recommended OP appointment) GI: -Renal diet, IV famotidine : -End-stage renal disease on hemodialysis -Nephrology Dr. Shepherd ID: -IV vancomycin, IV Zosyn, p.o. Flagyl, DC vanc -Follow-up on cultures influenza negative, check C. difficile if diarrhea persists. All cultures negative today HEME: -Monitor CBC, CMP, INR -Coumadin on hold due to subtherapeutic INR, pharmacy to dose Coumadin ENDO: -Monitor electrolytes closely PROPH: -Bilateral lower extremity SCDs. INR 2.9. IV famotidine LINES: - RIJ central line placed 05/15/17 CC time 35 min excluding procedural time Remains critically ill but stabilizing requiring Yosef-Synephrine to maintain blood pressure, requiring Cardizem to maintain heart rate below 100. Mendoza Navarrete MD May 16, 2017 11:12
[2017-05-16] MEDS ORDERED: DIGOXIN 0.5 MG/2 ML VIAL IV PUSH ONE (11:15)
--- NOTE | 2017-05-16 12:31 | PD.CARD.PN ---
Subjective Subjective Remarks Doing better overall Currently off all drips No chest pain/SOB Objective Medications Current Medications Medications (Trade) Dose Ordered Sig/Jamal Route Start Time Stop Time Status Last Admin (NS Flush) 2 ml UNSCH PRN IV FLUSH 05/13/17 19:45 (NS Flush) 2 ml BID IV FLUSH 05/13/17 21:00 05/16/17 08:33 (Narcan Inj) 0.4 mg UNSCH PRN IV PUSH 05/13/17 19:45 (Zyloprim) 100 mg DAILY PO 05/14/17 09:00 05/16/17 08:32 (Sensipar) 30 mg DAILY PO 05/14/17 09:00 05/16/17 08:32 (Renvela) 2,400 mg TID PO 05/14/17 09:00 05/16/17 08:31 (Peridex 0.12% Liq) 15 ml TID SWISH-SPIT 05/14/17 09:00 05/14/17 17:58 Miscellaneous Information Patient in critical care unit? Ass... Q361D .XX 05/14/17 05:30 (Chlorhexidine 2% Cloth) 3 pack DAILY@04 TOPICAL 05/15/17 04:00 05/19/17 04:01 05/16/17 02:08 (Chlorhexidine 2% Cloth) 3 pack UNSCH PRN TOPICAL 05/14/17 05:30 05/19/17 05:28 (Aspirin Chew) 81 mg DAILY CHEW 05/14/17 09:00 05/16/17 08:32 Diltiazem HCl 125 mg/Sodium Chloride 125 ml @ 5 mls/hr TITRATE PRN IV 05/14/17 07:00 05/15/17 01:06 Phenylephrine HCl 40 mg/Dextrose 500 ml @ 30 mls/hr TITRATE PRN IV 05/14/17 08:00 05/15/17 05:51 (Brethine Inj) 1 mg UNSCH PRN SQ 05/14/17 08:00 Piperacillin Sod/ Tazobactam Sod 50 ml @ 100 mls/hr Q8H IV 05/14/17 08:00 05/16/17 08:31 (Flagyl) 500 mg Q8HR PO 05/14/17 14:00 05/16/17 05:57 Sodium Chloride 1,000 ml @ 0 mls/hr Q0M PRN OTHER 05/14/17 11:21 (Heparin Inj) 8,000 units UNSCH PRN IV FLUSH 05/14/17 11:30 Sodium Chloride 1,000 ml @ 200 mls/hr Q5H PRN IV 05/14/17 11:21 Sodium Chloride 1,000 ml @ 0 mls/hr Q0M PRN OTHER 05/14/17 11:21 (Mannitol Inj) 12.5 gm UNSCH PRN IV 05/14/17 11:30 Albumin Human 100 ml @ 60 mls/hr UNSCH PRN IV 05/14/17 11:30 05/15/17 09:38 (NS Flush) 5 ml UNSCH PRN IV FLUSH 05/14/17 11:30 (Heparin Inj) UNSCH PRN .XX 05/14/17 11:30 (Gentamicin Inj) 20 mg UNSCH PRN OTHER 05/14/17 11:30 (Zofran Inj) 4 mg UNSCH PRN IV PUSH 05/14/17 11:30 (Tylenol) 650 mg UNSCH PRN PO 05/14/17 11:30 05/16/17 08:32 (Benadryl) 25 mg UNSCH PRN PO 05/14/17 11:30 (Nitrostat Sl) 0.4 mg UNSCH PRN SL 05/14/17 11:30 (Catapres) 0.1 mg UNSCH PRN PO 05/14/17 11:30 (Gelfoam 12 Mm/7 Mm Top) 1 foam UNSCH PRN TOP 05/14/17 11:30 05/15/17 09:42 Pharmacy Profile Note 0 ml @ 0 mls/hr UNSCH OTHER 05/15/17 07:45 (Duoneb Neb) 1 ampule Q4HR NEB PRN NEB 05/15/17 07:45 (Cardizem) 60 mg Q6H PO 05/16/17 14:00 Vital Signs / I&O Vital Signs Date Time Temp Pulse Resp B/P (MAP) Pulse Ox O2 Delivery O2 Flow Rate FiO2 05/16/17 10:30 108 23 92/55 (67) 98 05/16/17 10:15 114 25 107/71 (83) 97 05/16/17 10:00 116 25 103/64 (77) 99 05/16/17 09:45 111 25 99/55 (70) 97 05/16/17 09:30 111 25 98/61 (73) 97 05/16/17 09:15 116 24 96/59 (71) 94 05/16/17 09:01 118 29 84/69 (74) 93 05/16/17 09:00 116 21 94 05/16/17 08:46 104 21 117/97 (104) 97 05/16/17 08:30 109 22 110/74 (86) 93 05/16/17 08:15 107 19 105/59 (74) 100 05/16/17 08:00 98.0 104 19 107/59 (75) 100 05/16/17 07:20 100 Nasal Cannula 2.00 05/16/17 06:00 105 05/16/17 04:00 97.6 102 18 101/55 (70) 93 05/16/17 04:00 102 05/16/17 02:00 107 05/16/17 00:00 108 05/16/17 00:00 97.9 108 18 100/61 (74) 100 05/15/17 22:00 113 05/15/17 21:07 18 05/15/17 20:00 97.1 110 19 97/53 (68) 100 05/15/17 20:00 110 05/15/17 19:26 98 Nasal Cannula 3.00 05/15/17 18:45 106 20 85/48 (60) 100 05/15/17 18:30 101 22 81/50 (60) 100 05/15/17 18:15 104 24 91/51 (64) 100 05/15/17 18:00 105 24 93/50 (64) 100 05/15/17 17:47 102 33 81/53 (62) 98 05/15/17 17:45 97 22 76/47 (57) 97 05/15/17 17:30 97 22 98/56 (70) 100 05/15/17 17:15 89 38 94/55 (68) 100 05/15/17 17:00 101 34 91/57 (68) 100 05/15/17 16:45 96 54 89/64 (72) 100 05/15/17 16:30 100 48 92/52 (65) 100 05/15/17 16:15 98 47 85/63 (70) 100 05/15/17 16:00 98.9 100 52 94/64 (74) 100 05/15/17 15:45 88 36 86/62 (70) 100 05/15/17 15:30 87 57 94/60 (71) 100 05/15/17 15:15 95 50 90/64 (73) 100 05/15/17 15:00 94 38 88/56 (67) 100 05/15/17 14:45 89 50 84/48 (60) 100 05/15/17 14:30 87 39 100/56 (71) 100 05/15/17 14:16 96 36 112/63 (79) 100 05/15/17 14:00 100 33 102/58 (73) 100 05/15/17 13:45 98 37 92/60 (71) 100 05/15/17 13:30 92 25 97/57 (70) 99 05/15/17 13:15 100 19 94/52 (66) 98 05/15/17 13:00 92 13 100/55 (70) 89 05/15/17 12:45 93 14 90/53 (65) 87 05/15/17 12:30 97 15 88/51 (63) 96 I/O 05/15/17 05/15/17 05/15/17 05/16/17 05/16/17 05/16/17 07:00 15:00 23:00 07:00 15:00 23:00 Intake Total 1756 ml 75 ml 620 ml 261 ml Output Total 0 ml 0 ml Balance 1756 ml 75 ml 620 ml 261 ml Intake Oral 400 ml IV Total 1756 ml 75 ml 220 ml 261 ml Output Urine Total 0 ml 0 ml # Bowel Movements 0 0 1 Physical Exam GENERAL: NAD, AAOx3 SKIN: Warm and dry. HEAD: Atraumatic. Normocephalic. EYES: Pupils equal and round. No scleral icterus. No injection or drainage. ENT: No nasal bleeding or discharge. Mucous membranes pink and moist. NECK: Trachea midline. No JVD. CARDIOVASCULAR: Irregularly irregular, 3/6 crescendo-decrescendo murmur to the RSB RESPIRATORY: No accessory muscle use. Clear to auscultation. Breath sounds equal bilaterally. GASTROINTESTINAL: Abdomen soft, non-tender, nondistended. Hepatic and splenic margins not palpable. MUSCULOSKELETAL: Extremities without clubbing, cyanosis, or edema. No obvious deformities. NEUROLOGICAL: Awake and alert. No obvious cranial nerve deficits. Motor grossly within normal limits. Five out of 5 muscle strength in the arms and legs. Normal speech. PSYCHIATRIC: Appropriate mood and affect; insight and judgment normal. Laboratory Laboratory Tests Test 05/16/17 03:30 White Blood Count 8.1 TH/MM3 Red Blood Count 3.33 MIL/MM3 Hemoglobin 11.0 GM/DL Hematocrit 34.4 % Mean Corpuscular Volume 103.4 FL Mean Corpuscular Hemoglobin 33.1 PG Mean Corpuscular Hemoglobin Concent 32.0 % Red Cell Distribution Width 17.3 % Platelet Count 165 TH/MM3 Mean Platelet Volume 9.3 FL Neutrophils (%) (Auto) 78.4 % Lymphocytes (%) (Auto) 8.4 % Monocytes (%) (Auto) 9.5 % Eosinophils (%) (Auto) 3.4 % Basophils (%) (Auto) 0.3 % Neutrophils # (Auto) 6.4 TH/MM3 Lymphocytes # (Auto) 0.7 TH/MM3 Monocytes # (Auto) 0.8 TH/MM3 Eosinophils # (Auto) 0.3 TH/MM3 Basophils # (Auto) 0.0 TH/MM3 CBC Comment DIFF FINAL Differential Comment Prothrombin Time 29.4 SEC Prothromb Time International Ratio 2.9 RATIO Blood Urea Nitrogen 17 MG/DL Creatinine 4.36 MG/DL Random Glucose 99 MG/DL Total Protein 6.3 GM/DL Albumin 3.5 GM/DL Calcium Level 7.7 MG/DL Alkaline Phosphatase 62 U/L Aspartate Amino Transf (AST/SGOT) 25 U/L Alanine Aminotransferase (ALT/SGPT) 38 U/L Total Bilirubin 1.0 MG/DL Sodium Level 138 MEQ/L Potassium Level 3.5 MEQ/L Chloride Level 99 MEQ/L Carbon Dioxide Level 30.5 MEQ/L Anion Gap 9 MEQ/L Estimat Glomerular Filtration Rate 13 ML/MIN Random Vancomycin Level 11.3 COMMENT Assessment and Plan Problem List: (1) Aortic valvar stenosis ICD Codes: I35.0 - Nonrheumatic aortic (valve) stenosis (2) ESRD (end stage renal disease) on dialysis ICD Codes: N18.6 - End stage renal disease; Z99.2 - Dependence on renal dialysis (3) Atrial fibrillation ICD Codes: I48.91 - Unspecified atrial fibrillation (4) Diabetes mellitus ICD Codes: E11.9 - Diabetes mellitus Status: Chronic (5) Hypotension ICD Codes: I95.9 - Hypotension, unspecified Status: Acute (6) End stage renal disease on dialysis ICD Codes: N18.6 - End stage renal disease on dialysis; Z99.2 - Dependence on renal dialysis Status: Acute (7) CAD (coronary artery disease) ICD Codes: I25.10 - Atherosclerotic heart disease of [place] coronary artery without angina pectoris Assessment and Plan 1) Afib Now better controlled around 100-120 Agree with increasing Cardizem as well as dose of digoxin Will place on daily digoxin 2) Shock Most likely cardiogenic with Afib with RVR as well as his aortic stenosis 3) Overall believe his admission is based on his Afib with RVR more than anything 4) Severe Consideration of PCI with BAV, as any time he goes into RVR he's going to become shock-like, will have to see how he does Would end up being BMS of LAD as needs dental work Eventual TAVR, will need to have dental work first but having difficulty getting Oral Maxillofacial surgery saw him and wants to see outpt For now, will control heart rates for Afib and if stable get him to rehab then to Dr. Santiago for dental work If further episodes of concern then would consider PCI and BAV, as patient was on minimal to control Afib when he left here last admission Problem Qualifiers (1) Atrial fibrillation: Qualified Codes: I48.91 - Unspecified atrial fibrillation Jeffrey Ortiz DO May 16, 2017 12:31
[2017-05-16] MEDS: CHLORHEXIDINE GLUCONATE 0.12% 15 ML CUP SWISH-SPIT SCH ×2 (13:30→18:43)
[2017-05-16] MEDS: DILTIAZEM HCL 60 MG TAB PO SCH ×2 (13:30→21:35)
[2017-05-16] MEDS: PHENYLEPHRINE 40 MG in D5W 500 ML IV PRN (15:29)
[2017-05-17] VITALS (26 sets, daily range): BP systolic 84–123; BP diastolic 56–71; PULSE 85–112; RESP 12–61; TEMP 97.6–98.5; O2SAT 85–100
[2017-05-17] MEDS: DILTIAZEM HCL 60 MG TAB PO SCH ×4 (01:09→20:29)
[2017-05-17 03:57] LABS: HEMATOCRIT 34.5 % (39.0-51.0); HEMOGLOBIN 11.1 GM/DL (13.0-17.0); MEAN CELL VOLUME 103.9 FL (80.0-100.0); MEAN CORPUSCULAR HEMOGLOBIN 33.5 PG (27.0-34.0); MEAN CORPUSCULAR HGB CONC 32.2 % (32.0-36.0); MEAN PLATELET VOLUME 9.4 FL (7.0-11.0); PLATELET COUNT 144 TH/MM3 (150-450); RED BLOOD COUNT 3.32 MIL/MM3 (4.50-5.90); WHITE BLOOD COUNT 7.6 TH/MM3 (4.0-11.0)
[2017-05-17 04:08] LABS: INTERNATIONAL NORMALIZED RATIO 2.1 RATIO
[2017-05-17] MEDS: metroNIDAZOLE 500 MG TAB PO SCH ×3 (07:32→20:29)
[2017-05-17] MEDS: ASPIRIN 81 MG CHEW TAB CHEW SCH (08:42)
[2017-05-17] MEDS: SODIUM CHLORIDE 0.9% FLUSH 10 ML FLUSH IV FLUSH SCH ×2 (08:42→20:30)
[2017-05-17] MEDS: ALLOPURINOL 100 MG TAB PO SCH (08:42)
[2017-05-17] MEDS: SEVELAMER CARBONATE 800 MG TAB PO SCH ×3 (08:42→18:00)
[2017-05-17] MEDS: CINACALCET HYDROCHLORIDE 30 MG TAB PO SCH (08:42)
[2017-05-17] MEDS: CHLORHEXIDINE GLUCONATE 0.12% 15 ML CUP SWISH-SPIT SCH ×3 (08:47→18:00)
[2017-05-17] MEDS: PIPERACIL-TAZO 2.25 GM PREMIX 50 ML IV SCH ×3 (08:47→23:33)
[2017-05-17] MEDS ORDERED: DIGOXIN 0.125 MG TAB PO SCH (09:00)
[2017-05-17] MEDS: ACETAMINOPHEN 325 MG TAB PO PRN (10:47)
--- NOTE | 2017-05-17 11:13 | HHI.CCPN ---
Subjective Remarks/Hospital Course Patient is a 76-year-old male with past medical history significant for recurrent CHF exacerbation, severe aortic stenosis (peak 94, mean 55, NATA 0.5) CAD with LAD lesion, end-stage renal disease on hemodialysis, history of C. difficile colitis, diabetes hypertension, atrial fibrillation. Patient was recently discharged from [facility] on 05/10/2017. Per hospitalist admit note, patient went to hemodialysis from [facility] and at the dialysis center, his heart rate was 140s to 150s, with hypotension and was transferred to ED. On arrival he was in A. fib with RVR. Patient was given 1.5 L of normal saline overnight, an additional 500 mL in a.m. for persistent hypotension. Despite being started on amiodarone patient remained in A. fib with RVR with rate 120-140s and hypotensive. Patient also was slightly tachypneic but maintaining oxygen saturation. Critical care medicine was consulted for persistent hypotension and A. fib with RVR. His troponin also had peaked at 1.47. He has had known LAD lesion on cardiac catheterization done in March 2017. He was advised to wait on the TAVR/PCI until dental extraction, and his recurrent C. difficile is resolved. He is on by mouth vancomycin at the nursing facility for the treatment of C. difficile. I evaluated the patient immediately in the ICU. His systolic blood pressure varying from mid 70s to mid 80s. Currently on amiodarone infusion. Patient is slightly tachypneic but appears critically ill, pale. I have started Yosef- Synephrine to support blood pressure, keep map above 65, start Cardizem infusion for better rate control. Loaded with digoxin IV 0.25 mg 1. May need DCCV if rate not controlled due to hypotension and sev . To cover for sepsis started patient on vancomycin and Zosyn also added p.o. Flagyl. Check influenza and C Diff. Discussed with Dr. Ortiz and Dr. Nielson. SUBJ 05/15/17: Patient remains critically ill but stable to slightly improved. Remains on Yosef-Synephrine at 30 mcg/min. also on amiodarone and Cardizem infusion for rate control. Start Cardizem p.o. and attempt to wean to DC Cardizem infusion. I will discontinue amiodarone. INR remains therapeutic at 3 -will not start heparin yet 05/16/17: Patient lying on the bed remains on 10 mics of Yosef-Synephrine. IV infusions of Cardizem and amiodarone had been stopped. Currently on p.o. Cardizem 30 mg every 6 hours- will increase to 60 q6. CXR continues to show bilateral effusion. Additional 0.125 mg digoxin 1 05/17/17: Yosef-Synephrine had been turned off since AM. Heart rate varying from 100-110. Daily digoxin started yesterday by cardiology, I will change to q. other day due to ESRD Objective Vital Signs Date Time Temp Pulse Resp B/P (MAP) Pulse Ox O2 Delivery O2 Flow Rate FiO2 05/17/17 10:54 103 99/66 05/17/17 10:15 21 100 05/17/17 09:51 Nasal Cannula 2.00 05/17/17 08:00 97.9 05/13/17 20:33 40 Intake and Output 05/17/17 05/17/17 05/18/17 08:00 16:00 00:00 Intake Total 541 ml Balance 541 ml Result Diagram: 05/17/17 0325 05/16/17 0330 Other Results Microbiology Date/Time Source Procedure Growth Status 05/14/17 12:40 Nasal Aspirate Influenza Types A,B Antigen (ANIBAL) - Final NEGATIVE FOR FLU A AND B ANTIGEN.... Complete Imaging Chest x-ray shows pulmonary vascular congestion and right sided effusion Objective Remarks GENERAL: This is a elderly gentleman, appears critically ill SKIN: No rashes. Cool and dry. HEAD: Atraumatic. Normocephalic. No temporal or scalp tenderness. EYES:No scleral icterus. No injection or drainage. ENT: Airway patent. NECK: Trachea midline. CARDIOVASCULAR: Irregularly irregular, crescendo decrescendo murmur at LSB, hypotensive RESPIRATORY: Air entry equal bilaterally. No wheezes GASTROINTESTINAL: Abdomen soft, non-tender, nondistended. No hepato-splenomegaly MUSCULOSKELETAL: Extremities without clubbing, cyanosis. 1+ pitting edema. Left fore arm fistula in place NEUROLOGICAL: Awake and alert. Motor and sensory grossly within normal limits. Follows commands normal speech A/P Assessment and Plan ASSESSMENT: Atrial fibrillation with RVR Hypotension Congestive heart failure Elevated troponin Probable sepsis Coagulopathy secondary to Coumadin/supratherapeutic INR Severe aortic stenosis (peak 94, mean 55, NATA 0.5) Bilateral pleural effusion secondary to CHF CAD with LAD lesion End-stage renal disease on hemodialysis Recent history of C. difficile colitis Diabetes Hypertension Chronic atrial fibrillation PLAN: NEURO: -Minimize all sedation -Encephalopathy most likely metabolic, improving RESP: -Nasal cannula oxygen. Keep oxygen saturation above 90% -DuoNeb every 6 hours as needed -Bilateral pleural effusion secondary to CHF, continue fluid removal with dialysis -Repeat chest x-ray tomorrow CV: -Yosef-Synephrine now off -Cardizem PO 60 mg every 6 -Daily digoxin started by cardiology changed to q. other day -Coumadin on hold due to supra therapeutic INR. Pharmacy to dose coumadin -Aspirin 81 mg daily -No beta-blockers due to hypotension -Cardiology Dr. Ortiz -Discussed with CTS Dr. Nielson, may need balloon valvuloplasty for severe aortic stenosis, once more stable. PCI/TAVR later-see Dr. Ortiz's note -Need his teeth extracted prior to any surgical intervention (Dr. Santiago recommended OP appointment) GI: -Renal diet, IV famotidine : -End-stage renal disease on hemodialysis -Nephrology Dr. Mayers ID: -IV vancomycin, IV Zosyn, p.o. Flagyl, DC vanc -Follow-up on cultures influenza negative, check C. difficile if diarrhea persists. All cultures negative today HEME: -Monitor CBC, CMP, INR -Coumadin on hold due to subtherapeutic INR, pharmacy to dose Coumadin ENDO: -Monitor electrolytes closely PROPH: -Bilateral lower extremity SCDs. INR 2.1. IV famotidine LINES: - RIJ central line placed 05/15/17 Level 3 Remains critically ill but stabilizing. Continue Cardizem and digoxin for rate control. Consult hospitalist to assume care in a.m. [facility] with Mendoza Navarrete MD May 17, 2017 11:13
--- NOTE | 2017-05-17 15:34 | PD.CARD.PN ---
Subjective Subjective Remarks Doing better overall Currently off all drips No chest pain/SOB Heart rates around 100 Objective Medications Current Medications Medications (Trade) Dose Ordered Sig/Jamal Route Start Time Stop Time Status Last Admin (NS Flush) 2 ml UNSCH PRN IV FLUSH 05/13/17 19:45 (NS Flush) 2 ml BID IV FLUSH 05/13/17 21:00 05/17/17 08:42 (Narcan Inj) 0.4 mg UNSCH PRN IV PUSH 05/13/17 19:45 (Zyloprim) 100 mg DAILY PO 05/14/17 09:00 05/17/17 08:42 (Sensipar) 30 mg DAILY PO 05/14/17 09:00 05/17/17 08:42 (Renvela) 2,400 mg TID PO 05/14/17 09:00 05/17/17 13:28 Miscellaneous Information Patient in critical care unit? Ass... Q361D .XX 05/14/17 05:30 (Chlorhexidine 2% Cloth) 3 pack DAILY@04 TOPICAL 05/15/17 04:00 05/19/17 04:01 05/16/17 02:08 (Chlorhexidine 2% Cloth) 3 pack UNSCH PRN TOPICAL 05/14/17 05:30 05/19/17 05:28 (Aspirin Chew) 81 mg DAILY CHEW 05/14/17 09:00 05/17/17 08:42 (Brethine Inj) 1 mg UNSCH PRN SQ 05/14/17 08:00 Piperacillin Sod/ Tazobactam Sod 50 ml @ 100 mls/hr Q8H IV 05/14/17 08:00 05/17/17 08:47 (Flagyl) 500 mg Q8HR PO 05/14/17 14:00 05/17/17 13:28 Sodium Chloride 1,000 ml @ 0 mls/hr Q0M PRN OTHER 05/14/17 11:21 (Heparin Inj) 8,000 units UNSCH PRN IV FLUSH 05/14/17 11:30 Sodium Chloride 1,000 ml @ 200 mls/hr Q5H PRN IV 05/14/17 11:21 Sodium Chloride 1,000 ml @ 0 mls/hr Q0M PRN OTHER 05/14/17 11:21 (Mannitol Inj) 12.5 gm UNSCH PRN IV 05/14/17 11:30 Albumin Human 100 ml @ 60 mls/hr UNSCH PRN IV 05/14/17 11:30 05/15/17 09:38 (NS Flush) 5 ml UNSCH PRN IV FLUSH 05/14/17 11:30 (Heparin Inj) UNSCH PRN .XX 05/14/17 11:30 (Gentamicin Inj) 20 mg UNSCH PRN OTHER 05/14/17 11:30 (Zofran Inj) 4 mg UNSCH PRN IV PUSH 05/14/17 11:30 (Tylenol) 650 mg UNSCH PRN PO 05/14/17 11:30 05/17/17 10:47 (Benadryl) 25 mg UNSCH PRN PO 05/14/17 11:30 (Nitrostat Sl) 0.4 mg UNSCH PRN SL 05/14/17 11:30 (Catapres) 0.1 mg UNSCH PRN PO 05/14/17 11:30 (Gelfoam 12 Mm/7 Mm Top) 1 foam UNSCH PRN TOP 05/14/17 11:30 05/15/17 09:42 Pharmacy Profile Note 0 ml @ 0 mls/hr UNSCH OTHER 05/15/17 07:45 (Duoneb Neb) 1 ampule Q4HR NEB PRN NEB 05/15/17 07:45 (Cardizem) 60 mg Q6H PO 05/16/17 14:00 05/17/17 13:28 (Peridex 0.12% Liq) 15 ml TID SWISH-SPIT 05/16/17 13:00 05/17/17 08:47 (Lanoxin) 0.125 mg Q48H PO 05/19/17 09:00 (Coumadin) 1 mg DAILY@1600 PO 05/17/17 16:00 Vital Signs / I&O Vital Signs Date Time Temp Pulse Resp B/P (MAP) Pulse Ox O2 Delivery O2 Flow Rate FiO2 05/17/17 15:00 111 05/17/17 14:19 112 05/17/17 14:00 105 05/17/17 13:00 112 25 90 05/17/17 13:00 112 05/17/17 12:33 104 22 84/57 (66) 92 05/17/17 12:33 104 05/17/17 12:00 97.9 108 15 122/60 (80) 100 05/17/17 12:00 108 05/17/17 10:54 103 99/66 05/17/17 10:15 108 05/17/17 10:15 108 21 108/58 (75) 100 05/17/17 10:00 107 22 104/59 (74) 98 05/17/17 10:00 107 05/17/17 09:51 100 Nasal Cannula 2.00 05/17/17 09:45 103 05/17/17 09:45 103 24 104/71 (82) 97 05/17/17 09:30 112 05/17/17 09:30 112 23 107/63 (78) 97 05/17/17 09:15 111 23 101/63 (76) 97 05/17/17 09:15 111 05/17/17 09:00 108 19 104/70 (81) 97 05/17/17 09:00 108 05/17/17 08:45 106 05/17/17 08:45 106 19 95/69 (78) 96 05/17/17 08:30 100 05/17/17 08:30 100 13 104/68 (80) 100 05/17/17 08:15 100 05/17/17 08:15 100 18 102/58 (73) 88 05/17/17 08:00 106 05/17/17 08:00 97.9 106 14 105/60 (75) 100 05/17/17 06:00 106 05/17/17 04:00 95 05/17/17 04:00 97.6 95 14 109/63 (78) 96 05/17/17 02:00 97 05/17/17 00:00 98.0 99 13 99/68 (78) 95 05/17/17 00:00 99 05/16/17 22:00 104 05/16/17 21:01 98 Nasal Cannula 2.00 05/16/17 20:00 98.8 111 14 90/59 (69) 94 05/16/17 20:00 111 05/16/17 16:45 130 22 91/65 (74) 91 05/16/17 16:33 126 22 80/53 (62) 98 05/16/17 16:15 130 24 95/64 (74) 96 05/16/17 16:00 98.5 133 20 95/58 (70) 97 05/16/17 15:45 118 23 109/58 (75) 100 I/O 05/16/17 05/16/17 05/16/17 05/17/17 05/17/17 05/17/17 07:00 15:00 23:00 07:00 15:00 23:00 Intake Total 261 ml 50 ml 735 ml 541 ml Output Total 0 ml Balance 261 ml 50 ml 735 ml 541 ml Intake Oral 600 ml 240 ml IV Total 261 ml 50 ml 135 ml 301 ml Output Urine Total 0 ml # Bowel Movements 1 0 Physical Exam GENERAL: NAD, AAOx3 SKIN: Warm and dry. HEAD: Atraumatic. Normocephalic. EYES: Pupils equal and round. No scleral icterus. No injection or drainage. ENT: No nasal bleeding or discharge. Mucous membranes pink and moist. NECK: Trachea midline. No JVD. CARDIOVASCULAR: Irregularly irregular, 3/6 crescendo-decrescendo murmur to the RSB RESPIRATORY: No accessory muscle use. Clear to auscultation. Breath sounds equal bilaterally. GASTROINTESTINAL: Abdomen soft, non-tender, nondistended. Hepatic and splenic margins not palpable. MUSCULOSKELETAL: Extremities without clubbing, cyanosis, or edema. No obvious deformities. NEUROLOGICAL: Awake and alert. No obvious cranial nerve deficits. Motor grossly within normal limits. Five out of 5 muscle strength in the arms and legs. Normal speech. PSYCHIATRIC: Appropriate mood and affect; insight and judgment normal. Laboratory Laboratory Tests Test 05/17/17 03:25 White Blood Count 7.6 TH/MM3 Red Blood Count 3.32 MIL/MM3 Hemoglobin 11.1 GM/DL Hematocrit 34.5 % Mean Corpuscular Volume 103.9 FL Mean Corpuscular Hemoglobin 33.5 PG Mean Corpuscular Hemoglobin Concent 32.2 % Red Cell Distribution Width 17.0 % Platelet Count 144 TH/MM3 Mean Platelet Volume 9.4 FL Prothrombin Time 21.0 SEC Prothromb Time International Ratio 2.1 RATIO Assessment and Plan Problem List: (1) Aortic valvar stenosis ICD Codes: I35.0 - Nonrheumatic aortic (valve) stenosis (2) ESRD (end stage renal disease) on dialysis ICD Codes: N18.6 - End stage renal disease; Z99.2 - Dependence on renal dialysis (3) Atrial fibrillation ICD Codes: I48.91 - Unspecified atrial fibrillation (4) Diabetes mellitus ICD Codes: E11.9 - Diabetes mellitus Status: Chronic (5) Hypotension ICD Codes: I95.9 - Hypotension, unspecified Status: Acute (6) End stage renal disease on dialysis ICD Codes: N18.6 - End stage renal disease on dialysis; Z99.2 - Dependence on renal dialysis Status: Acute (7) CAD (coronary artery disease) ICD Codes: I25.10 - Atherosclerotic heart disease of [place] coronary artery without angina pectoris Assessment and Plan 1) Afib Now better controlled around 100 Agree with increasing Cardizem as well as dose of digoxin Will place on digoxin every other day 2) Shock Most likely cardiogenic with Afib with RVR as well as his aortic stenosis 3) Overall believe his admission is based on his Afib with RVR more than anything 4) Severe Consideration of PCI with BAV, as any time he goes into RVR he's going to become shock-like, will have to see how he does Would end up being BMS of LAD as needs dental work Eventual TAVR, will need to have dental work first but having difficulty getting Oral Maxillofacial surgery saw him and wants to see outpt For now, will control heart rates for Afib and if stable get him to rehab then to Dr. Santiago for dental work If further episodes of concern then would consider PCI and BAV, as patient was on minimal to control Afib when he left here last admission Problem Qualifiers (1) Atrial fibrillation: Qualified Codes: I48.91 - Unspecified atrial fibrillation Jeffrey Ortiz DO May 17, 2017 15:34
[2017-05-17] MEDS: WARFARIN SOD 1 MG TAB PO SCH (16:21)
--- NOTE | 2017-05-17 19:19 | HHI.NPPN ---
Subjective History of Present Illness 76-year-old male known to me from before with past medical history of hypertension, diabetes mellitus, hyperlipidemia, severe aortic stenosis, atrial fibrillation, chronic anemia, who was recently discharged from the hospital and brought back because of hypotension from the dialysis. The patient has been on regular dialysis Wednesday, and Wednesday. Additional Remarks Patient is alert, mild SOB, no dizziness, no SOB, not in distress, clinically same. Objective Data Data 05/17/17 05/18/17 19:00 07:00 Intake Total 100 ml Balance 100 ml IV Total 100 ml Vital Signs Date Time Temp Pulse Resp B/P (MAP) Pulse Ox O2 Delivery O2 Flow Rate FiO2 05/17/17 18:00 105 05/17/17 18:00 105 13 123/56 (78) 91 05/17/17 17:00 111 12 85 05/17/17 17:00 111 05/17/17 16:00 109 05/17/17 16:00 98.5 109 13 122/61 (81) 92 05/17/17 15:00 111 05/17/17 14:19 112 05/17/17 14:00 105 05/17/17 13:00 112 25 90 05/17/17 13:00 112 05/17/17 12:33 104 22 84/57 (66) 92 05/17/17 12:33 104 05/17/17 12:00 97.9 108 15 122/60 (80) 100 05/17/17 12:00 108 05/17/17 10:54 103 99/66 05/17/17 10:15 108 05/17/17 10:15 108 21 108/58 (75) 100 05/17/17 10:00 107 22 104/59 (74) 98 05/17/17 10:00 107 05/17/17 09:51 100 Nasal Cannula 2.00 05/17/17 09:45 103 05/17/17 09:45 103 24 104/71 (82) 97 05/17/17 09:30 112 05/17/17 09:30 112 23 107/63 (78) 97 05/17/17 09:15 111 23 101/63 (76) 97 05/17/17 09:15 111 05/17/17 09:00 108 19 104/70 (81) 97 05/17/17 09:00 108 05/17/17 08:45 106 05/17/17 08:45 106 19 95/69 (78) 96 05/17/17 08:30 100 05/17/17 08:30 100 13 104/68 (80) 100 05/17/17 08:15 100 05/17/17 08:15 100 18 102/58 (73) 88 05/17/17 08:00 106 05/17/17 08:00 97.9 106 14 105/60 (75) 100 05/17/17 06:00 106 05/17/17 04:00 95 05/17/17 04:00 97.6 95 14 109/63 (78) 96 05/17/17 02:00 97 05/17/17 00:00 98.0 99 13 99/68 (78) 95 05/17/17 00:00 99 05/16/17 22:00 104 05/16/17 21:01 98 Nasal Cannula 2.00 05/16/17 20:00 98.8 111 14 90/59 (69) 94 05/16/17 20:00 111 -: 05/17/17 0325 05/16/17 0330 Physical Exam General Appearance: No Acute Distress, Comfortable Eyes Eye Exam: Pupils Equal Pulmonary Resp Exam: Breath Sounds Equal, No Distress, Rhonchi, Decreased Bases, Diminished Breath Sounds Cardiology CV Exam: Normal Sinus Rhythm, Irregular, Arrhythmia Gastrointestinal/Abdomen GI Exam: Soft, Non-Tender, Bowel Sounds Present Extremeties Extremities Exam: Trace Edema Neurologic Neuro Exam: Alert, Awake Psychiatric Psych Exam: Appropriate Responses Assessment/Plan Assessment Summary: Hypotension, End Stage Renal Disease Problem List: (1) Aortic valvar stenosis ICD Codes: I35.0 - Nonrheumatic aortic (valve) stenosis (2) ESRD (end stage renal disease) on dialysis ICD Codes: N18.6 - End stage renal disease; Z99.2 - Dependence on renal dialysis (3) Atrial fibrillation ICD Codes: I48.91 - Unspecified atrial fibrillation (4) Diabetes mellitus ICD Codes: E11.9 - Diabetes mellitus Status: Chronic (5) Hypotension ICD Codes: I95.9 - Hypotension, unspecified Status: Acute Plan Patient has End stage renal disease. Was send to Hospital due to Hypotension and tachycardia. BP is on lower side, but stable. HR controlled. On Amiodarone, and Diltiazem. Seen by cardiology, Continue HD, TTS. Epogen with HD. Problem Qualifiers (1) Atrial fibrillation: Qualified Codes: I48.91 - Unspecified atrial fibrillation Quiana Mayers MD May 17, 2017 19:19
[2017-05-17] MEDS: CHLORHEXIDINE GLUCONATE 2 % 1 PACK (2 CLOTHS)(taper/protocol) TOPICAL SCH (20:29)
[2017-05-18] VITALS (17 sets, daily range): BP systolic 103–124; BP diastolic 56–75; PULSE 91–127; RESP 13–23; TEMP 97.6–99.1; O2SAT 89–100
[2017-05-18] MEDS: DILTIAZEM HCL 60 MG TAB PO SCH ×4 (01:27→20:27)
--- NOTE | 2017-05-18 05:01 | RADRPT ---
EXAM DATE/TIME: 05/18/2017 03:32 [facility] COMPARISON: CHEST SINGLE AP, May 15, 2017, 7:26. INDICATIONS : Short of breath. MEDICAL HISTORY : Hypertension. Dialysis. SURGICAL HISTORY : AV fistula. Pilonidial cyst ENCOUNTER: Subsequent ACUITY: 1 week PAIN SCORE: 0/10 LOCATION: Bilateral chest FINDINGS: No significant interval change in appearance of the chest with bilateral pleural effusions, dense con solidation in the lower lobes, atherosclerosis and cardiomegaly. Right jugular line partially obscure d. EKG leads overlie the chest. Dense aortic calcification. CONCLUSION: No significant change has occurred. Damien Pierson MD on May 18, 2017 at 4:58 Board Certified Radiologist. This report was verified electronically.
[2017-05-18] MEDS: metroNIDAZOLE 500 MG TAB PO SCH ×3 (05:51→20:27)
[2017-05-18 05:59] LABS: AUTOMATED NEUTROPHIL # 5.5 TH/MM3 (1.8-7.7); BASOPHIL % 0.6 % (0.0-2.0); EOSINOPHIL # 0.2 TH/MM3 (0-0.4); HEMATOCRIT 34.6 % (39.0-51.0); HEMOGLOBIN 11.3 GM/DL (13.0-17.0); LYMPHOCYTE # 0.6 TH/MM3 (1.0-4.8); MEAN CELL VOLUME 102.5 FL (80.0-100.0); MEAN CORPUSCULAR HEMOGLOBIN 33.4 PG (27.0-34.0); MEAN CORPUSCULAR HGB CONC 32.6 % (32.0-36.0); MEAN PLATELET VOLUME 9.3 FL (7.0-11.0); MONO % 7.5 % (0.0-8.0); MONOCYTE # 0.5 TH/MM3 (0-0.9); NEUT % 79.9 % (16.0-70.0); PLATELET COUNT 122 TH/MM3 (150-450); RED BLOOD COUNT 3.37 MIL/MM3 (4.50-5.90); RED CELL DISTRIBUTION WIDTH 17.3 % (11.6-17.2); WHITE BLOOD COUNT 6.9 TH/MM3 (4.0-11.0)
[2017-05-18 06:18] LABS: INTERNATIONAL NORMALIZED RATIO 1.6 RATIO; PROTHROMBIN TIME - PATIENT 16.4 SEC (9.8-11.6)
[2017-05-18 06:53] LABS: ALBUMIN 2.9 GM/DL (3.4-5.0); ALKALINE PHOSPHATASE 54 U/L (45-117); ALT (GPT) 23 U/L (12-78); AST (GOT) 10 U/L (15-37); BICARBONATE 31.2 MEQ/L (21.0-32.0); BLOOD UREA NITROGEN 35 MG/DL (7-18); CHLORIDE 99 MEQ/L (98-107); CREATININE 6.34 MG/DL (0.60-1.30); DIGOXIN 1.1 NG/ML (0.8-2.0); GLOMERULAR FILTRATION RATE 9 ML/MIN (>89); GLUCOSE,RANDOM 100 MG/DL (74-106); SODIUM (NA) 139 MEQ/L (136-145); TOTAL BILIRUBIN ADULT 0.8 MG/DL (0.2-1.0)
[2017-05-18] MEDS: ASPIRIN 81 MG CHEW TAB CHEW SCH (08:18)
[2017-05-18] MEDS: PIPERACIL-TAZO 2.25 GM PREMIX 50 ML IV SCH ×3 (08:18→22:03)
[2017-05-18] MEDS: SODIUM CHLORIDE 0.9% FLUSH 10 ML FLUSH IV FLUSH SCH ×2 (08:18→20:28)
[2017-05-18] MEDS: SEVELAMER CARBONATE 800 MG TAB PO SCH ×3 (08:19→16:34)
[2017-05-18] MEDS: CINACALCET HYDROCHLORIDE 30 MG TAB PO SCH (08:19)
[2017-05-18] MEDS: ALLOPURINOL 100 MG TAB PO SCH (08:19)
[2017-05-18] MEDS: CHLORHEXIDINE GLUCONATE 0.12% 15 ML CUP SWISH-SPIT SCH ×3 (08:19→16:33)
--- NOTE | 2017-05-18 09:20 | HHI.PR ---
Subjective Remarks The patient was seen in dialysis. He feels less short of breath. He feels tired. No nausea vomiting no diarrhea or constipation. He complains of back pain not controlled with Tylenol. Will like some stronger medications. Denies fever or chills. Objective Vitals Vital Signs Date Time Temp Pulse Resp B/P (MAP) Pulse Ox O2 Delivery O2 Flow Rate FiO2 05/18/17 06:00 108 05/18/17 04:00 99 05/18/17 04:00 98.1 99 13 103/62 (76) 100 05/18/17 02:00 96 05/18/17 00:43 98 Nasal Cannula 2.00 05/18/17 00:00 97.6 91 20 108/71 (83) 99 05/18/17 00:00 91 05/17/17 22:00 85 05/17/17 20:00 97.6 109 61 101/57 (72) 99 05/17/17 20:00 109 05/17/17 19:00 99 Nasal Cannula 3.00 05/17/17 18:00 105 05/17/17 18:00 105 13 123/56 (78) 91 05/17/17 17:00 111 12 85 05/17/17 17:00 111 05/17/17 16:00 109 05/17/17 16:00 98.5 109 13 122/61 (81) 92 05/17/17 15:00 111 05/17/17 14:19 112 05/17/17 14:00 105 05/17/17 13:00 112 25 90 05/17/17 13:00 112 05/17/17 12:33 104 22 84/57 (66) 92 05/17/17 12:33 104 05/17/17 12:00 97.9 108 15 122/60 (80) 100 05/17/17 12:00 108 05/17/17 10:54 103 99/66 05/17/17 10:15 108 05/17/17 10:15 108 21 108/58 (75) 100 05/17/17 10:00 107 22 104/59 (74) 98 05/17/17 10:00 107 05/17/17 09:51 100 Nasal Cannula 2.00 05/17/17 09:45 103 05/17/17 09:45 103 24 104/71 (82) 97 05/17/17 09:30 112 05/17/17 09:30 112 23 107/63 (78) 97 I/O 05/17/17 05/17/17 05/17/17 05/18/17 05/18/17 05/18/17 07:00 15:00 23:00 07:00 15:00 23:00 Intake Total 541 ml 820 ml 85 ml Balance 541 ml 820 ml 85 ml Intake Oral 240 ml 720 ml 35 ml IV Total 301 ml 100 ml 50 ml # Voids 0 # Bowel Movements 1 Result Diagram: 05/18/17 0500 05/18/17 0500 Imaging Last Impressions Chest X-Ray 05/18/17 0600 Signed Impressions: Service Date/Time: Thursday, May 18, 2017 03:32 - CONCLUSION: No significant change has occurred. Damien Pierson MD Objective Remarks GENERAL: This is a elderly gentleman, appears critically ill CARDIOVASCULAR: Irregularly irregular, crescendo decrescendo murmur at LSB, hypotensive RESPIRATORY: Air entry equal bilaterally. No wheezes GASTROINTESTINAL: Abdomen soft, non-tender, nondistended. No hepato-splenomegaly MUSCULOSKELETAL: Extremities without clubbing, cyanosis. 1+ pitting edema. Left fore arm fistula in place NEUROLOGICAL: Awake and alert. Motor and sensory grossly within normal limits. Follows commands normal speech A/P Assessment and Plan Atrial fibrillation with RVR Hypotension Congestive heart failure Elevated troponin Probable sepsis Coagulopathy secondary to Coumadin/supratherapeutic INR Severe aortic stenosis (peak 94, mean 55, NATA 0.5) Bilateral pleural effusion secondary to CHF CAD with LAD lesion End-stage renal disease on hemodialysis Recent history of C. difficile colitis Diabetes Hypertension Chronic atrial fibrillation PLAN: NEURO: -Minimize all sedation -Encephalopathy most likely metabolic, improving RESP: -Nasal cannula oxygen. Keep oxygen saturation above 90% -DuoNeb every 6 hours as needed -Bilateral pleural effusion secondary to CHF, continue fluid removal with dialysis -Repeat chest x-ray CV: -Was on Yosef-Synephrine while in ICU, DCd -Cardizem PO 60 mg every 6 -Daily digoxin started by cardiology changed to q. other day / ESRD -Coumadin on hold due to supra therapeutic INR. Pharmacy to dose coumadin -Aspirin 81 mg daily -No beta-blockers due to hypotension -Cardiology Dr. Ortiz -Discussed with CTS Dr. Nielson, may need balloon valvuloplasty for severe aortic stenosis, once more stable. PCI/TAVR later-see Dr. Ortiz's note -Need his teeth extracted prior to any surgical intervention (Dr. Santiago recommended OP appointment) GI: -Renal diet, IV famotidine : -End-stage renal disease on hemodialysis -Nephrology Dr. Mayers ID: -IV vancomycin, IV Zosyn, p.o. Flagyl, DC vanc -Follow-up on cultures influenza negative, check C. difficile if diarrhea persists. All cultures negative today HEME: -Monitor CBC, CMP, INR -Coumadin on hold due to subtherapeutic INR, pharmacy to dose Coumadin ENDO: -Monitor electrolytes closely PROPH: -Bilateral lower extremity SCDs. INR 2.1. IV famotidine LINES: - RIJ central line placed 05/15/17 Transfer to [facility] Bailey Kim MD May 18, 2017 09:20
[2017-05-18] MEDS: GELATIN 12 MM/7 MM FOAM TOP PRN (09:22)
--- NOTE | 2017-05-18 16:18 | HHI.NPPN ---
Subjective History of Present Illness 76-year-old male known to me from before with past medical history of hypertension, diabetes mellitus, hyperlipidemia, severe aortic stenosis, atrial fibrillation, chronic anemia, who was recently discharged from the hospital and brought back because of hypotension from the dialysis. The patient has been on regular dialysis Wednesday, and Wednesday. Additional Remarks Patient is alert, no SOB, complaining of pain in back region (Prachi Huitron) Review of Systems Respiratory Respiratory Remarks Denies sob (Prachi Huitron) Gastrointestinal GI Remarks No abdominal pain (Prahci Huitron) Musculoskeletal MS: Pain/Stiffness MS Remarks back (Prachi Huitron) Objective Data Data 05/18/17 05/19/17 19:00 07:00 Intake Total 100 ml Output Total 1300 ml Balance -1200 ml IV Total 100 ml Hemodialysis 1300 ml Vital Signs Date Time Temp Pulse Resp B/P (MAP) Pulse Ox O2 Delivery O2 Flow Rate FiO2 05/18/17 15:00 112 05/18/17 14:00 122 05/18/17 13:00 119 23 100 05/18/17 13:00 119 05/18/17 12:17 97.9 127 22 113/74 (87) 05/18/17 12:17 127 05/18/17 10:18 95 Nasal Cannula 2.00 05/18/17 08:00 113 05/18/17 08:00 99.1 113 19 124/62 (82) 92 05/18/17 07:00 95 Nasal Cannula 2.00 40 05/18/17 06:00 108 05/18/17 04:00 99 05/18/17 04:00 98.1 99 13 103/62 (76) 100 05/18/17 02:00 96 05/18/17 00:43 98 Nasal Cannula 2.00 05/18/17 00:00 97.6 91 20 108/71 (83) 99 05/18/17 00:00 91 05/17/17 22:00 85 05/17/17 20:00 97.6 109 61 101/57 (72) 99 05/17/17 20:00 109 05/17/17 19:00 99 Nasal Cannula 3.00 05/17/17 18:00 105 05/17/17 18:00 105 13 123/56 (78) 91 05/17/17 17:00 111 12 85 05/17/17 17:00 111 (Prachi Huitron) -: 05/18/17 0500 05/18/17 0500 Physical Exam General Appearance: No Acute Distress, Comfortable (Prachi Huitron) Eyes Eye Exam: Pupils Equal (Prachi Huitron) Pulmonary Resp Exam: Breath Sounds Equal, No Distress, Decreased Bases, Diminished Breath Sounds (Prachi Huitron) Cardiology CV Exam: Normal Sinus Rhythm, Irregular, Arrhythmia (Prachi Huitron) Gastrointestinal/Abdomen GI Exam: Soft, Non-Tender, Bowel Sounds Present (Prachi Huitron) Extremeties Extremities Exam: Trace Edema (Prachi Huitron) Neurologic Neuro Exam: Alert, Awake (Prachi Huitron) Psychiatric Psych Exam: Appropriate Responses (Prachi Huitron) Assessment/Plan Assessment Summary: Hypotension, End Stage Renal Disease Problem List: (1) Aortic valvar stenosis ICD Codes: I35.0 - Nonrheumatic aortic (valve) stenosis (2) ESRD (end stage renal disease) on dialysis ICD Codes: N18.6 - End stage renal disease; Z99.2 - Dependence on renal dialysis (3) Atrial fibrillation ICD Codes: I48.91 - Unspecified atrial fibrillation (4) Diabetes mellitus ICD Codes: E11.9 - Diabetes mellitus Status: Chronic (5) Hypotension ICD Codes: I95.9 - Hypotension, unspecified Status: Acute Plan Patient has End stage renal disease. Was send to Hospital due to Hypotension and tachycardia. BP is on lower side, but stable. HR controlled. On Amiodarone, and Diltiazem. Continue HD, TTS. Dialysis this morning 1300 removed Epogen with HD. (Prachi Huitron) Plan Patient seen and examined, agree with above. HD done and 1.3 liters removed. (Quiana Mayers MD) Problem Qualifiers (1) Atrial fibrillation: Qualified Codes: I48.91 - Unspecified atrial fibrillation Prachi Huitron May 18, 2017 16:17 Quiana Mayers MD May 18, 2017 17:38
[2017-05-18] MEDS: ACETAMINOPHEN 325 MG TAB PO PRN (16:25)
[2017-05-18] MEDS: WARFARIN SOD 1 MG TAB PO SCH (16:33)
[2017-05-18] MEDS: ACETAMINOPHEN/HYDROcodone 325 MG/5 MG TAB PO PRN (22:02)
--- NOTE | 2017-05-18 22:46 | PD.CARD.PN ---
Subjective Subjective Remarks Patient was seen earlier today, late entry note Doing better overall Currently off all drips No chest pain/SOB Heart rates around 100 Objective Medications Current Medications Medications (Trade) Dose Ordered Sig/Jamal Route Start Time Stop Time Status Last Admin (NS Flush) 2 ml UNSCH PRN IV FLUSH 05/13/17 19:45 (NS Flush) 2 ml BID IV FLUSH 05/13/17 21:00 05/18/17 20:28 (Narcan Inj) 0.4 mg UNSCH PRN IV PUSH 05/13/17 19:45 (Zyloprim) 100 mg DAILY PO 05/14/17 09:00 05/18/17 08:19 (Sensipar) 30 mg DAILY PO 05/14/17 09:00 05/18/17 08:19 (Renvela) 2,400 mg TID PO 05/14/17 09:00 05/18/17 16:34 Miscellaneous Information Patient in critical care unit? Ass... Q361D .XX 05/14/17 05:30 (Chlorhexidine 2% Cloth) 3 pack DAILY@04 TOPICAL 05/15/17 04:00 05/19/17 04:01 05/17/17 20:29 (Chlorhexidine 2% Cloth) 3 pack UNSCH PRN TOPICAL 05/14/17 05:30 05/19/17 05:28 (Aspirin Chew) 81 mg DAILY CHEW 05/14/17 09:00 05/18/17 08:18 (Brethine Inj) 1 mg UNSCH PRN SQ 05/14/17 08:00 Piperacillin Sod/ Tazobactam Sod 50 ml @ 100 mls/hr Q8H IV 05/14/17 08:00 05/18/17 22:03 (Flagyl) 500 mg Q8HR PO 05/14/17 14:00 05/18/17 20:27 Sodium Chloride 1,000 ml @ 0 mls/hr Q0M PRN OTHER 05/14/17 11:21 (Heparin Inj) 8,000 units UNSCH PRN IV FLUSH 05/14/17 11:30 Sodium Chloride 1,000 ml @ 200 mls/hr Q5H PRN IV 05/14/17 11:21 Sodium Chloride 1,000 ml @ 0 mls/hr Q0M PRN OTHER 05/14/17 11:21 (Mannitol Inj) 12.5 gm UNSCH PRN IV 05/14/17 11:30 Albumin Human 100 ml @ 60 mls/hr UNSCH PRN IV 05/14/17 11:30 05/15/17 09:38 (NS Flush) 5 ml UNSCH PRN IV FLUSH 05/14/17 11:30 (Heparin Inj) UNSCH PRN .XX 05/14/17 11:30 (Gentamicin Inj) 20 mg UNSCH PRN OTHER 05/14/17 11:30 (Zofran Inj) 4 mg UNSCH PRN IV PUSH 05/14/17 11:30 (Tylenol) 650 mg UNSCH PRN PO 05/14/17 11:30 05/18/17 16:25 (Benadryl) 25 mg UNSCH PRN PO 05/14/17 11:30 (Nitrostat Sl) 0.4 mg UNSCH PRN SL 05/14/17 11:30 (Catapres) 0.1 mg UNSCH PRN PO 05/14/17 11:30 (Gelfoam 12 Mm/7 Mm Top) 1 foam UNSCH PRN TOP 05/14/17 11:30 05/18/17 09:22 Pharmacy Profile Note 0 ml @ 0 mls/hr UNSCH OTHER 05/15/17 07:45 (Duoneb Neb) 1 ampule Q4HR NEB PRN NEB 05/15/17 07:45 (Cardizem) 60 mg Q6H PO 05/16/17 14:00 05/18/17 20:27 (Peridex 0.12% Liq) 15 ml TID SWISH-SPIT 05/16/17 13:00 05/18/17 16:33 (Lanoxin) 0.125 mg Q48H PO 05/19/17 09:00 (Coumadin) 1 mg DAILY@1600 PO 05/17/17 16:00 05/18/17 16:33 ([place] 5-325 Mg) 1 tab BID PRN PO 05/18/17 21:00 05/18/17 22:02 Vital Signs / I&O Vital Signs Date Time Temp Pulse Resp B/P (MAP) Pulse Ox O2 Delivery O2 Flow Rate FiO2 05/18/17 22:02 98 Nasal Cannula 2.00 05/18/17 22:00 114 05/18/17 20:00 97.7 120 18 122/75 (91) 89 05/18/17 20:00 120 05/18/17 19:00 100 Nasal Cannula 2.00 05/18/17 18:00 118 05/18/17 16:24 113 23 113/56 (75) 91 05/18/17 16:24 113 05/18/17 16:00 98.9 116 22 113/56 (75) 97 05/18/17 16:00 116 05/18/17 15:00 112 05/18/17 14:00 122 05/18/17 13:00 119 23 100 05/18/17 13:00 119 05/18/17 12:17 97.9 127 22 113/74 (87) 05/18/17 12:17 127 05/18/17 10:18 95 Nasal Cannula 2.00 05/18/17 08:00 113 05/18/17 08:00 99.1 113 19 124/62 (82) 92 05/18/17 07:00 95 Nasal Cannula 2.00 40 05/18/17 06:00 108 05/18/17 04:00 99 05/18/17 04:00 98.1 99 13 103/62 (76) 100 05/18/17 02:00 96 05/18/17 00:43 98 Nasal Cannula 2.00 05/18/17 00:00 97.6 91 20 108/71 (83) 99 05/18/17 00:00 91 I/O 05/17/17 05/17/17 05/17/17 05/18/17 05/18/17 05/18/17 07:00 15:00 23:00 07:00 15:00 23:00 Intake Total 541 ml 820 ml 85 ml 680 ml Output Total 1300 ml Balance 541 ml 820 ml 85 ml -1300 ml 680 ml Intake Oral 240 ml 720 ml 35 ml 480 ml IV Total 301 ml 100 ml 50 ml 200 ml Hemodialysis 1300 ml # Voids 0 0 # Bowel Movements 1 0 Physical Exam GENERAL: NAD, AAOx3 SKIN: Warm and dry. HEAD: Atraumatic. Normocephalic. EYES: Pupils equal and round. No scleral icterus. No injection or drainage. ENT: No nasal bleeding or discharge. Mucous membranes pink and moist. NECK: Trachea midline. No JVD. CARDIOVASCULAR: Irregularly irregular, 3/6 crescendo-decrescendo murmur to the RSB RESPIRATORY: No accessory muscle use. Clear to auscultation. Breath sounds equal bilaterally. GASTROINTESTINAL: Abdomen soft, non-tender, nondistended. Hepatic and splenic margins not palpable. MUSCULOSKELETAL: Extremities without clubbing, cyanosis, or edema. No obvious deformities. NEUROLOGICAL: Awake and alert. No obvious cranial nerve deficits. Motor grossly within normal limits. Five out of 5 muscle strength in the arms and legs. Normal speech. PSYCHIATRIC: Appropriate mood and affect; insight and judgment normal. Laboratory Laboratory Tests Test 05/18/17 05:00 White Blood Count 6.9 TH/MM3 Red Blood Count 3.37 MIL/MM3 Hemoglobin 11.3 GM/DL Hematocrit 34.6 % Mean Corpuscular Volume 102.5 FL Mean Corpuscular Hemoglobin 33.4 PG Mean Corpuscular Hemoglobin Concent 32.6 % Red Cell Distribution Width 17.3 % Platelet Count 122 TH/MM3 Mean Platelet Volume 9.3 FL Neutrophils (%) (Auto) 79.9 % Lymphocytes (%) (Auto) 9.0 % Monocytes (%) (Auto) 7.5 % Eosinophils (%) (Auto) 3.0 % Basophils (%) (Auto) 0.6 % Neutrophils # (Auto) 5.5 TH/MM3 Lymphocytes # (Auto) 0.6 TH/MM3 Monocytes # (Auto) 0.5 TH/MM3 Eosinophils # (Auto) 0.2 TH/MM3 Basophils # (Auto) 0.0 TH/MM3 CBC Comment DIFF FINAL Differential Comment Prothrombin Time 16.4 SEC Prothromb Time International Ratio 1.6 RATIO Blood Urea Nitrogen 35 MG/DL Creatinine 6.34 MG/DL Random Glucose 100 MG/DL Total Protein 6.0 GM/DL Albumin 2.9 GM/DL Calcium Level 8.0 MG/DL Alkaline Phosphatase 54 U/L Aspartate Amino Transf (AST/SGOT) 10 U/L Alanine Aminotransferase (ALT/SGPT) 23 U/L Total Bilirubin 0.8 MG/DL Sodium Level 139 MEQ/L Potassium Level 4.0 MEQ/L Chloride Level 99 MEQ/L Carbon Dioxide Level 31.2 MEQ/L Anion Gap 9 MEQ/L Estimat Glomerular Filtration Rate 9 ML/MIN Digoxin Level 1.1 NG/ML Imaging Last 24 hours Impressions Chest X-Ray 05/18/17 0600 Signed Impressions: Service Date/Time: Thursday, May 18, 2017 03:32 - CONCLUSION: No significant change has occurred. Damien Pierson MD Assessment and Plan Problem List: (1) Aortic valvar stenosis ICD Codes: I35.0 - Nonrheumatic aortic (valve) stenosis (2) ESRD (end stage renal disease) on dialysis ICD Codes: N18.6 - End stage renal disease; Z99.2 - Dependence on renal dialysis (3) Atrial fibrillation ICD Codes: I48.91 - Unspecified atrial fibrillation (4) Diabetes mellitus ICD Codes: E11.9 - Diabetes mellitus Status: Chronic (5) Hypotension ICD Codes: I95.9 - Hypotension, unspecified Status: Acute (6) End stage renal disease on dialysis ICD Codes: N18.6 - End stage renal disease on dialysis; Z99.2 - Dependence on renal dialysis Status: Acute (7) CAD (coronary artery disease) ICD Codes: I25.10 - Atherosclerotic heart disease of inupiat coronary artery without angina pectoris Assessment and Plan 1) Afib Now better controlled around 100 Agree with Cardizem and Digoxin 2) Shock Most likely cardiogenic with Afib with RVR as well as his aortic stenosis 3) Overall believe his admission is based on his Afib with RVR more than anything 4) Severe Consideration of PCI with BAV, as any time he goes into RVR he's going to become shock-like, will have to see how he does Would end up being BMS of LAD as needs dental work Eventual TAVR, will need to have dental work first but having difficulty getting Oral Maxillofacial surgery saw him and wants to see outpt For now, will control heart rates for Afib and if stable get him to rehab then to Dr. Santiago for dental work If further episodes of concern then would consider PCI and BAV, as patient was on minimal medications to control Afib when he left here last admission Problem Qualifiers (1) Atrial fibrillation: Qualified Codes: I48.91 - Unspecified atrial fibrillation Jeffrey Ortiz DO May 18, 2017 22:46
[2017-05-19] VITALS (31 sets, daily range): BP systolic 91–124; BP diastolic 55–80; PULSE 99–129; RESP 11–28; TEMP 97–98.4; O2SAT 78–100
[2017-05-19] MEDS: DILTIAZEM HCL 60 MG TAB PO SCH ×4 (02:13→20:54)
[2017-05-19] MEDS: CHLORHEXIDINE GLUCONATE 2 % 1 PACK (2 CLOTHS)(taper/protocol) TOPICAL SCH (02:13)
[2017-05-19] MEDS: metroNIDAZOLE 500 MG TAB PO SCH ×3 (05:06→20:53)
[2017-05-19 05:49] LABS: INTERNATIONAL NORMALIZED RATIO 1.6 RATIO; PROTHROMBIN TIME - PATIENT 16.6 SEC (9.8-11.6)
[2017-05-19] MEDS ORDERED: ASPI81 CHEW (08:40)
[2017-05-19] MEDS ORDERED: DIGO0.12 PO (08:40)
[2017-05-19] MEDS ORDERED: NITR0.4S SL (08:40)
[2017-05-19] MEDS ORDERED: DILT60TA33 PO (08:40)
--- NOTE | 2017-05-19 08:40 | HHI.DS ---
Discharge Summary Admission Date May 13, 2017 at 17:43 Admitting Diagnosis A. fib with RVR, CHF, ESRD on HD Brief History - From Admission History patient, ER physician, medication, interfere medical records. Patient's 2 sons at the bedside also provided history. Patient was recently discharged from our hospital on May 10, 2017. He was managed at that time for a similar problems. He has been at [facility] only for about 2 days and he went to his dialysis today. At, the dialysis center, his blood pressure dropped and his heart rate was noted to be in 140s to 150s. He was therefore sent to the hospital. He reports that he was there for 3 hours for dialysis. Next and there was also report from ER at that 600 cc off fluid which was removed. In the emergency room, patient was noted to be in A. fib with RVR. He does have history of chronic A. fib on Coumadin. Patient also has history of severe aortic stenosis for which she was evaluated by cardiothoracic surgeon prior. He was advised to wait on the surgery until his poor dentition was fixed and his teeth were pulled out, and his recurrent C. difficile is resolved. He is currently on by mouth vancomycin at the nursing facility for the treatment of C. difficile. Apart from this blood pressure issue, patient denies any symptoms. Specifically, patient denies any chest pain/shortness of breath was focal weakness. He denies any fever there. He denies any nausea/vomiting/diarrhea. He is aware that he has C. difficile. He denies any blood in his stool or urine. However, patient is elderly gentleman who seems to and typically his symptoms. He was even telling the ER physician that he drove himself to the dialysis center today. Son's reported that this was not true. Patient was sent from [facility] to the dialysis. He has not been driving for a while. Similarly, patient looks to be quite short of breath at rest on exam. He however denies it Patient's family is frustrated about his medical condition as this is repeated episodes of fluid overload/CHF exacerbation/hypotension. All secondary to the severe aortic stenosis which is not being fixed. They have not been able to get a dentist to pull his teeth because of his insurance or long-term or hospital issues. CBC/BMP: 05/18/17 0500 05/18/17 0500 Significant Findings Laboratory Tests Test 05/17/17 03:25 05/18/17 05:00 05/19/17 04:18 Red Blood Count 3.32 MIL/MM3 (4.50-5.90) 3.37 MIL/MM3 (4.50-5.90) Hemoglobin 11.1 GM/DL (13.0-17.0) 11.3 GM/DL (13.0-17.0) Hematocrit 34.5 % (39.0-51.0) 34.6 % (39.0-51.0) Mean Corpuscular Volume 103.9 FL (80.0-100.0) 102.5 FL (80.0-100.0) Platelet Count 144 TH/MM3 (150-450) 122 TH/MM3 (150-450) Prothrombin Time 21.0 SEC (9.8-11.6) 16.4 SEC (9.8-11.6) 16.6 SEC (9.8-11.6) Red Cell Distribution Width 17.3 % (11.6-17.2) Neutrophils (%) (Auto) 79.9 % (16.0-70.0) Lymphocytes # (Auto) 0.6 TH/MM3 (1.0-4.8) Blood Urea Nitrogen 35 MG/DL (7-18) Creatinine 6.34 MG/DL (0.60-1.30) Total Protein 6.0 GM/DL (6.4-8.2) Albumin 2.9 GM/DL (3.4-5.0) Calcium Level 8.0 MG/DL (8.5-10.1) Aspartate Amino Transf (AST/SGOT) 10 U/L (15-37) Estimat Glomerular Filtration Rate 9 ML/MIN (>89) PE at Discharge GENERAL: This is a elderly gentleman, appears critically ill CARDIOVASCULAR: Irregularly irregular, crescendo decrescendo murmur at LSB, hypotensive RESPIRATORY: Air entry equal bilaterally. No wheezes GASTROINTESTINAL: Abdomen soft, non-tender, nondistended. No hepato-splenomegaly MUSCULOSKELETAL: Extremities without clubbing, cyanosis. 1+ pitting edema. Left fore arm fistula in place NEUROLOGICAL: Awake and alert. Motor and sensory grossly within normal limits. Follows commands normal speech Bailey Kim MD May 19, 2017 08:40
[2017-05-19] MEDS: CHLORHEXIDINE GLUCONATE 0.12% 15 ML CUP SWISH-SPIT SCH ×3 (09:00→16:54)
[2017-05-19] MEDS: SODIUM CHLORIDE 0.9% FLUSH 10 ML FLUSH IV FLUSH SCH ×2 (09:00→20:54)
[2017-05-19] MEDS: DIGOXIN 0.125 MG TAB PO SCH (09:34)
[2017-05-19] MEDS: SEVELAMER CARBONATE 800 MG TAB PO SCH ×3 (09:34→16:54)
[2017-05-19] MEDS: CINACALCET HYDROCHLORIDE 30 MG TAB PO SCH (09:35)
[2017-05-19] MEDS: ACETAMINOPHEN/HYDROcodone 325 MG/5 MG TAB PO PRN ×3 (09:35→22:00)
[2017-05-19] MEDS: ALLOPURINOL 100 MG TAB PO SCH (09:35)
[2017-05-19] MEDS: PIPERACIL-TAZO 2.25 GM PREMIX 50 ML IV SCH ×3 (09:35→21:05)
[2017-05-19] MEDS: ASPIRIN 81 MG CHEW TAB CHEW SCH (09:35)
--- NOTE | 2017-05-19 14:30 | PD.CARD.PN ---
Subjective Subjective Remarks No chest pain/SOB Heart rates more elevated today, around 100-120 Objective Medications Current Medications Medications (Trade) Dose Ordered Sig/Jamal Route Start Time Stop Time Status Last Admin (NS Flush) 2 ml UNSCH PRN IV FLUSH 05/13/17 19:45 (NS Flush) 2 ml BID IV FLUSH 05/13/17 21:00 05/19/17 09:00 (Narcan Inj) 0.4 mg UNSCH PRN IV PUSH 05/13/17 19:45 (Zyloprim) 100 mg DAILY PO 05/14/17 09:00 05/19/17 09:35 (Sensipar) 30 mg DAILY PO 05/14/17 09:00 05/19/17 09:35 (Renvela) 2,400 mg TID PO 05/14/17 09:00 05/19/17 13:38 Miscellaneous Information Patient in critical care unit? Ass... [id number] .XX 05/14/17 05:30 (Aspirin Chew) 81 mg DAILY CHEW 05/14/17 09:00 05/19/17 09:35 (Brethine Inj) 1 mg UNSCH PRN SQ 05/14/17 08:00 Piperacillin Sod/ Tazobactam Sod 50 ml @ 100 mls/hr Q8H IV 05/14/17 08:00 05/19/17 09:35 (Flagyl) 500 mg Q8HR PO 05/14/17 14:00 05/19/17 13:38 Sodium Chloride 1,000 ml @ 0 mls/hr Q0M PRN OTHER 05/14/17 11:21 (Heparin Inj) 8,000 units UNSCH PRN IV FLUSH 05/14/17 11:30 Sodium Chloride 1,000 ml @ 200 mls/hr Q5H PRN IV 05/14/17 11:21 Sodium Chloride 1,000 ml @ 0 mls/hr Q0M PRN OTHER 05/14/17 11:21 (Mannitol Inj) 12.5 gm UNSCH PRN IV 05/14/17 11:30 Albumin Human 100 ml @ 60 mls/hr UNSCH PRN IV 05/14/17 11:30 05/15/17 09:38 (NS Flush) 5 ml UNSCH PRN IV FLUSH 05/14/17 11:30 (Heparin Inj) UNSCH PRN .XX 05/14/17 11:30 (Gentamicin Inj) 20 mg UNSCH PRN OTHER 05/14/17 11:30 (Zofran Inj) 4 mg UNSCH PRN IV PUSH 05/14/17 11:30 (Tylenol) 650 mg UNSCH PRN PO 05/14/17 11:30 05/18/17 16:25 (Benadryl) 25 mg UNSCH PRN PO 05/14/17 11:30 (Nitrostat Sl) 0.4 mg UNSCH PRN SL 05/14/17 11:30 (Catapres) 0.1 mg UNSCH PRN PO 05/14/17 11:30 (Gelfoam 12 Mm/7 Mm Top) 1 foam UNSCH PRN TOP 05/14/17 11:30 05/18/17 09:22 Pharmacy Profile Note 0 ml @ 0 mls/hr UNSCH OTHER 05/15/17 07:45 (Duoneb Neb) 1 ampule Q4HR NEB PRN NEB 05/15/17 07:45 (Cardizem) 60 mg Q6H PO 05/16/17 14:00 05/19/17 13:38 (Peridex 0.12% Liq) 15 ml TID SWISH-SPIT 05/16/17 13:00 05/18/17 16:33 (Lanoxin) 0.125 mg Q48H PO 05/19/17 09:00 05/19/17 09:34 (Coumadin) 1 mg DAILY@1600 PO 05/17/17 16:00 05/18/17 16:33 (Jennings 5-325 Mg) 1 tab BID PRN PO 05/18/17 21:00 05/19/17 09:35 Vital Signs / I&O Vital Signs Date Time Temp Pulse Resp B/P (MAP) Pulse Ox O2 Delivery O2 Flow Rate FiO2 05/19/17 11:00 113 17 108/69 (82) 91 05/19/17 11:00 113 05/19/17 10:38 125 16 95/69 (78) 98 05/19/17 10:38 125 05/19/17 10:00 129 05/19/17 10:00 129 28 124/61 (82) 05/19/17 09:30 126 28 106/63 (77) 90 05/19/17 09:30 126 2/14/18 09:00 127 28 96/76 (83) 92 05/19/17 09:00 127 05/19/17 08:52 100 Nasal Cannula 2.00 05/19/17 08:30 116 05/19/17 08:00 100 Nasal Cannula 2.00 05/19/17 08:00 118 05/19/17 08:00 97.0 118 11 112/75 (87) 98 05/19/17 07:30 119 12 103/77 (86) 100 05/19/17 07:30 119 05/19/17 07:00 119 19 103/74 (84) 86 05/19/17 07:00 119 05/19/17 06:00 119 05/19/17 04:00 120 05/19/17 04:00 98.4 120 18 111/80 (90) 88 05/19/17 02:00 118 05/19/17 00:00 115 05/19/17 00:00 98.2 115 16 115/72 (86) 100 05/18/17 22:02 98 Nasal Cannula 2.00 05/18/17 22:00 114 05/18/17 20:00 97.7 120 18 122/75 (91) 89 05/18/17 20:00 120 05/18/17 19:00 100 Nasal Cannula 2.00 05/18/17 18:00 118 05/18/17 16:24 113 23 113/56 (75) 91 05/18/17 16:24 113 05/18/17 16:00 98.9 116 22 113/56 (75) 97 05/18/17 16:00 116 05/18/17 15:00 112 I/O 05/18/17 05/18/17 05/18/17 05/19/17 05/19/17 05/19/17 07:00 15:00 23:00 07:00 15:00 23:00 Intake Total 85 ml 680 ml 100 ml Output Total 1300 ml 0 ml Balance 85 ml -1300 ml 680 ml 100 ml Intake Oral 35 ml 480 ml 100 ml IV Total 50 ml 200 ml Output Urine Total 0 ml Hemodialysis 1300 ml # Voids 0 # Bowel Movements 0 1 Physical Exam GENERAL: NAD, AAOx3 SKIN: Warm and dry. HEAD: Atraumatic. Normocephalic. EYES: Pupils equal and round. No scleral icterus. No injection or drainage. ENT: No nasal bleeding or discharge. Mucous membranes pink and moist. NECK: Trachea midline. No JVD. CARDIOVASCULAR: Irregularly irregular, 3/6 crescendo-decrescendo murmur to the RSB RESPIRATORY: No accessory muscle use. Clear to auscultation. Breath sounds equal bilaterally. GASTROINTESTINAL: Abdomen soft, non-tender, nondistended. Hepatic and splenic margins not palpable. MUSCULOSKELETAL: Extremities without clubbing, cyanosis, or edema. No obvious deformities. NEUROLOGICAL: Awake and alert. No obvious cranial nerve deficits. Motor grossly within normal limits. Five out of 5 muscle strength in the arms and legs. Normal speech. PSYCHIATRIC: Appropriate mood and affect; insight and judgment normal. Laboratory Laboratory Tests Test 05/19/17 04:18 Prothrombin Time 16.6 SEC Prothromb Time International Ratio 1.6 RATIO Assessment and Plan Problem List: (1) Aortic valvar stenosis ICD Codes: I35.0 - Nonrheumatic aortic (valve) stenosis (2) ESRD (end stage renal disease) on dialysis ICD Codes: N18.6 - End stage renal disease; Z99.2 - Dependence on renal dialysis (3) Atrial fibrillation ICD Codes: I48.91 - Unspecified atrial fibrillation (4) Diabetes mellitus ICD Codes: E11.9 - Diabetes mellitus Status: Chronic (5) Hypotension ICD Codes: I95.9 - Hypotension, unspecified Status: Acute (6) End stage renal disease on dialysis ICD Codes: N18.6 - End stage renal disease on dialysis; Z99.2 - Dependence on renal dialysis Status: Acute (7) CAD (coronary artery disease) ICD Codes: I25.10 - Atherosclerotic heart disease of [place] coronary artery without angina pectoris Assessment and Plan 1) Afib Still elevated heart rates Will attempt to add BB therapy, watch blood pressure Agree with Cardizem and Digoxin 2) Shock Most likely cardiogenic with Afib with RVR as well as his aortic stenosis 3) Overall believe his admission is based on his Afib with RVR more than anything 4) Severe Consideration of PCI with BAV, as any time he goes into RVR he's going to become shock-like, will have to see how he does Would end up being BMS of LAD as needs dental work Eventual TAVR, will need to have dental work first but having difficulty getting Oral Maxillofacial surgery saw him and wants to see outpt For now, will control heart rates for Afib and if stable get him to rehab then to Dr. Santiago for dental work If further episodes of concern then would consider PCI and BAV, as patient was on minimal medications to control Afib when he left here last admission Problem Qualifiers (1) Atrial fibrillation: Qualified Codes: I48.91 - Unspecified atrial fibrillation Jeffrey Ortiz DO May 19, 2017 14:30
--- NOTE | 2017-05-19 14:43 | HHI.PR ---
Subjective Remarks He has less back pain. No nausea or vomiting no diarrhea or constipation. Had dialysis yesterday. She is however tachycardic heart rate in 120s at this time however since he did physical therapy OT and his heart rate is high. Denies any chest pain shortness of breath no lightheadedness. He is feeling tired. Objective Vitals Vital Signs Date Time Temp Pulse Resp B/P (MAP) Pulse Ox O2 Delivery O2 Flow Rate FiO2 05/19/17 11:00 113 17 108/69 (82) 91 05/19/17 11:00 113 05/19/17 10:38 125 16 95/69 (78) 98 05/19/17 10:38 125 05/19/17 10:00 129 05/19/17 10:00 129 28 124/61 (82) 05/19/17 09:30 126 28 106/63 (77) 90 05/19/17 09:30 126 05/19/17 09:00 127 28 96/76 (83) 92 05/19/17 09:00 127 05/19/17 08:52 100 Nasal Cannula 2.00 05/19/17 08:30 116 05/19/17 08:00 100 Nasal Cannula 2.00 05/19/17 08:00 118 05/19/17 08:00 97.0 118 11 112/75 (87) 98 05/19/17 07:30 119 12 103/77 (86) 100 05/19/17 07:30 119 05/19/17 07:00 119 19 103/74 (84) 86 05/19/17 07:00 119 05/19/17 06:00 119 05/19/17 04:00 120 05/19/17 04:00 98.4 120 18 111/80 (90) 88 05/19/17 02:00 118 05/19/17 00:00 115 05/19/17 00:00 98.2 115 16 115/72 (86) 100 05/18/17 22:02 98 Nasal Cannula 2.00 05/18/17 22:00 114 05/18/17 20:00 97.7 120 18 122/75 (91) 89 05/18/17 20:00 120 05/18/17 19:00 100 Nasal Cannula 2.00 05/18/17 18:00 118 05/18/17 16:24 113 23 113/56 (75) 91 05/18/17 16:24 113 05/18/17 16:00 98.9 116 22 113/56 (75) 97 05/18/17 16:00 116 05/18/17 15:00 112 I/O 05/18/17 05/18/17 05/18/17 05/19/17 05/19/17 05/19/17 06:59 14:59 22:59 06:59 14:59 22:59 Intake Total 85 ml 680 ml 100 ml Output Total 1300 ml 0 ml Balance 85 ml -1300 ml 680 ml 100 ml Intake Oral 35 ml 480 ml 100 ml IV Total 50 ml 200 ml Output Urine Total 0 ml Hemodialysis 1300 ml # Voids 0 # Bowel Movements 0 1 Result Diagram: 05/18/17 0500 05/18/17 0500 Imaging Last Impressions Chest X-Ray 05/18/17 0600 Signed Impressions: Service Date/Time: Thursday, May 18, 2017 03:32 - CONCLUSION: No significant change has occurred. Damien Pierson MD Objective Remarks GENERAL: This is a elderly gentleman, appears critically ill CARDIOVASCULAR: Irregularly irregular, crescendo decrescendo murmur at LSB, hypotensive RESPIRATORY: Air entry equal bilaterally. No wheezes GASTROINTESTINAL: Abdomen soft, non-tender, nondistended. No hepato-splenomegaly MUSCULOSKELETAL: Extremities without clubbing, cyanosis. 1+ pitting edema. Left fore arm fistula in place NEUROLOGICAL: Awake and alert. Motor and sensory grossly within normal limits. Follows commands normal speech A/P Assessment and Plan Atrial fibrillation with RVR Hypotension Congestive heart failure Elevated troponin Probable sepsis Coagulopathy secondary to Coumadin/supratherapeutic INR Severe aortic stenosis (peak 94, mean 55, NATA 0.5) Bilateral pleural effusion secondary to CHF CAD with LAD lesion End-stage renal disease on hemodialysis Recent history of C. difficile colitis Diabetes Hypertension Chronic atrial fibrillation Pressure wound sacral. Wound care following. Has some pain added norco bid prn say sis helps a lot. Cleanse wound to L side of coccyx with normal saline and pat dry and apply Maxorb II to wound bed only loosely packed. Apply skin prep to periwound and cover with bordered gauze. Change dressing every 2 days or PRN if saturated or dislodged. Apply bilateral heel boots. Turn patient every 2 hours and PRN for comfort and offloading pressure from ju prominences. PLAN: NEURO: -Minimize all sedation -Encephalopathy most likely metabolic, improving RESP: -Nasal cannula oxygen. Keep oxygen saturation above 90% -DuoNeb every 6 hours as needed -Bilateral pleural effusion secondary to CHF, continue fluid removal with dialysis -Repeat chest x-ray CV: -Was on Yosef-Synephrine while in ICU, DCd -Cardizem PO 60 mg every 6 -Daily digoxin started by cardiology changed to q. other day 05/07 ESRD -Coumadin on hold due to supra therapeutic INR. Pharmacy to dose coumadin -Aspirin 81 mg daily -No beta-blockers due to hypotension -Cardiology Dr. Ortiz -Discussed with CTS Dr. Nielson, may need balloon valvuloplasty for severe aortic stenosis, once more stable. PCI/TAVR later-see Dr. Ortiz's note -Need his teeth extracted prior to any surgical intervention (Dr. Santiago recommended OP appointment) GI: -Renal diet, IV famotidine : -End-stage renal disease on hemodialysis -Nephrology Dr. Mayers ID: -IV vancomycin, IV Zosyn, p.o. Flagyl, DC vanc -Follow-up on cultures influenza negative, check C. difficile if diarrhea persists. All cultures negative today HEME: -Monitor CBC, CMP, INR -Coumadin on hold due to subtherapeutic INR, pharmacy to dose Coumadin ENDO: -Monitor electrolytes closely PROPH: -Bilateral lower extremity SCDs. INR 2.1. IV famotidine LINES: - RIJ central line placed 05/15/17 Transfer to [facility] Bailey Kim MD May 19, 2017 14:43
[2017-05-19] MEDS ORDERED: PILL SPLITTER OTHER PRN (15:00)
[2017-05-19] MEDS: METOPROLOL TARTRATE 25 MG TAB PO SCH ×3 (15:03→21:05)
--- NOTE | 2017-05-19 15:56 | HHI.NPPN ---
Subjective History of Present Illness 76-year-old male known to me from before with past medical history of hypertension, diabetes mellitus, hyperlipidemia, severe aortic stenosis, atrial fibrillation, chronic anemia, who was recently discharged from the hospital and brought back because of hypotension from the dialysis. The patient has been on regular dialysis Wednesday, and Wednesday. Additional Remarks Patient is alert, no SOB in no acute distress (Prachi Huitron) Review of Systems Respiratory Respiratory Remarks Denies sob (Prachi Huitron) Gastrointestinal GI Remarks No abdominal pain (Prachi Huitron) Musculoskeletal MS: Pain/Stiffness MS Remarks back (Prachi Huitron) Objective Data Data Vital Signs Date Time Temp Pulse Resp B/P (MAP) Pulse Ox O2 Delivery O2 Flow Rate FiO2 05/19/17 14:30 123 11 101/74 (83) 100 05/19/17 14:00 120 05/19/17 14:00 120 12 91/69 (76) 89 05/19/17 13:30 121 14 104/65 (78) 100 05/19/17 13:00 119 05/19/17 13:00 119 12 98/56 (70) 89 05/19/17 12:30 120 15 98/70 (79) 88 05/19/17 12:00 114 05/19/17 12:00 97.6 114 12 102/67 (79) 89 05/19/17 11:00 113 17 108/69 (82) 91 05/19/17 11:00 113 05/19/17 10:38 125 16 95/69 (78) 98 05/19/17 10:38 125 05/19/17 10:00 129 05/19/17 10:00 129 28 124/61 (82) 05/19/17 09:30 126 28 106/63 (77) 90 05/19/17 09:30 126 05/19/17 09:00 127 28 96/76 (83) 92 05/19/17 09:00 127 05/19/17 08:52 100 Nasal Cannula 2.00 05/19/17 08:30 116 05/19/17 08:00 100 Nasal Cannula 2.00 05/19/17 08:00 118 05/19/17 08:00 97.0 118 11 112/75 (87) 98 05/19/17 07:30 119 12 103/77 (86) 100 05/19/17 07:30 119 05/19/17 07:00 119 19 103/74 (84) 86 05/19/17 07:00 119 05/19/17 06:00 119 05/19/17 04:00 120 05/19/17 04:00 98.4 120 18 111/80 (90) 88 05/19/17 02:00 118 05/19/17 00:00 115 05/19/17 00:00 98.2 115 16 115/72 (86) 100 05/18/17 22:02 98 Nasal Cannula 2.00 05/18/17 22:00 114 05/18/17 20:00 97.7 120 18 122/75 (91) 89 05/18/17 20:00 120 05/18/17 19:00 100 Nasal Cannula 2.00 05/18/17 18:00 118 05/18/17 16:24 113 23 113/56 (75) 91 05/18/17 16:24 113 05/18/17 16:00 98.9 116 22 113/56 (75) 97 05/18/17 16:00 116 (Prachi Huitron) -: 05/18/17 0500 05/18/17 0500 Physical Exam General Appearance: No Acute Distress, Comfortable (Prachi Huitron) Eyes Eye Exam: Pupils Equal (Prachi Huitron) Pulmonary Resp Exam: Breath Sounds Equal, No Distress, Decreased Bases, Diminished Breath Sounds (Prachi Huitron) Cardiology CV Exam: Normal Sinus Rhythm, Irregular, Tachycardia (Prachi Huitron) Gastrointestinal/Abdomen GI Exam: Soft, Non-Tender, Bowel Sounds Present (Prachi Huitron) Extremeties Extremities Exam: Trace Edema (Prachi Huitron) Neurologic Neuro Exam: Alert, Awake (Prachi Huitron) Psychiatric Psych Exam: Appropriate Responses (Prachi Huitron) Assessment/Plan Assessment Summary: Hypotension, End Stage Renal Disease Problem List: (1) Aortic valvar stenosis ICD Codes: I35.0 - Nonrheumatic aortic (valve) stenosis (2) ESRD (end stage renal disease) on dialysis ICD Codes: N18.6 - End stage renal disease; Z99.2 - Dependence on renal dialysis (3) Atrial fibrillation ICD Codes: I48.91 - Unspecified atrial fibrillation (4) Diabetes mellitus ICD Codes: E11.9 - Diabetes mellitus Status: Chronic (5) Hypotension ICD Codes: I95.9 - Hypotension, unspecified Status: Acute Plan Patient has End stage renal disease. Was send to Hospital due to Hypotension and tachycardia. BP is on lower side, but stable. HR in the 120's On Amiodarone, and Diltiazem. Continue HD, TTS. Dialysis in AM Epogen with HD. Labs in AM (Prachi Huitron) Plan Patient seen and examined, agree with above. (Quiana Mayers MD) Problem Qualifiers (1) Atrial fibrillation: Qualified Codes: I48.91 - Unspecified atrial fibrillation Prachi Huitron May 19, 2017 15:56 Quiana Mayers MD May 19, 2017 20:59
[2017-05-19] MEDS: WARFARIN SOD 1 MG TAB PO SCH (16:53)
[2017-05-20] VITALS (16 sets, daily range): BP systolic 98–119; BP diastolic 59–77; PULSE 105–121; RESP 10–24; TEMP 96.9–98.6; O2SAT 85–100
[2017-05-20] MEDS: DILTIAZEM HCL 60 MG TAB PO SCH ×4 (01:37→20:55)
[2017-05-20] MEDS: metroNIDAZOLE 500 MG TAB PO SCH ×3 (04:48→21:58)
[2017-05-20] MEDS: METOPROLOL TARTRATE 25 MG TAB PO SCH ×3 (04:48→21:58)
[2017-05-20 05:19] LABS: HEMATOCRIT 35.8 % (39.0-51.0); HEMOGLOBIN 11.6 GM/DL (13.0-17.0); MEAN CELL VOLUME 103.1 FL (80.0-100.0); MEAN CORPUSCULAR HEMOGLOBIN 33.3 PG (27.0-34.0); MEAN CORPUSCULAR HGB CONC 32.3 % (32.0-36.0); MEAN PLATELET VOLUME 9.7 FL (7.0-11.0); PLATELET COUNT 147 TH/MM3 (150-450); RED BLOOD COUNT 3.47 MIL/MM3 (4.50-5.90); RED CELL DISTRIBUTION WIDTH 17.6 % (11.6-17.2)
[2017-05-20 05:22] LABS: INTERNATIONAL NORMALIZED RATIO 1.9 RATIO; PROTHROMBIN TIME - PATIENT 19.4 SEC (9.8-11.6)
--- NOTE | 2017-05-20 08:38 | HHI.PR ---
Subjective Remarks Noted tachycardic. He is in bed, appears in no acute distress at this time. Did not eat yet. Pain in his back improved. No n/v/d/c. Plan for HD today. Objective Vitals Vital Signs Date Time Temp Pulse Resp B/P (MAP) Pulse Ox O2 Delivery O2 Flow Rate FiO2 05/20/17 06:00 108 05/20/17 04:00 110 05/20/17 04:00 97.3 110 12 102/67 (79) 100 05/20/17 02:00 105 05/20/17 00:00 105 05/20/17 00:00 97.5 105 10 107/59 (75) 99 05/19/17 22:00 104 05/19/17 21:07 100 Nasal Cannula 2.00 05/19/17 20:00 97.4 100 16 107/68 (81) 100 05/19/17 20:00 100 05/19/17 19:00 100 Nasal Cannula 2.00 05/19/17 18:30 99 17 108/76 (87) 81 05/19/17 18:00 104 05/19/17 18:00 104 11 111/55 (73) 78 05/19/17 17:30 103 15 105/70 (82) 93 05/19/17 17:00 104 05/19/17 17:00 104 18 111/74 (86) 100 05/19/17 16:30 109 12 106/69 (81) 100 05/19/17 16:00 112 05/19/17 16:00 97.6 112 15 98/73 (81) 86 05/19/17 15:30 119 14 94/70 (78) 85 05/19/17 15:00 115 05/19/17 15:00 115 14 100/72 (81) 91 05/19/17 14:30 123 11 101/74 (83) 100 05/19/17 14:00 120 05/19/17 14:00 120 12 91/69 (76) 89 05/19/17 13:30 121 14 104/65 (78) 100 05/19/17 13:00 119 05/19/17 13:00 119 12 98/56 (70) 89 05/19/17 12:30 120 15 98/70 (79) 88 05/19/17 12:00 114 05/19/17 12:00 97.6 114 12 102/67 (79) 89 05/19/17 11:00 113 17 108/69 (82) 91 05/19/17 11:00 113 05/19/17 10:38 125 16 95/69 (78) 98 05/19/17 10:38 125 05/19/17 10:00 129 05/19/17 10:00 129 28 124/61 (82) 05/19/17 09:30 126 28 106/63 (77) 90 05/19/17 09:30 126 05/19/17 09:00 127 28 96/76 (83) 92 05/19/17 09:00 127 05/19/17 08:52 100 Nasal Cannula 2.00 I/O 05/19/17 05/19/17 05/19/17 05/20/17 05/20/17 05/20/17 07:00 15:00 23:00 07:00 15:00 23:00 Intake Total 100 ml 50 ml 530 ml 340 ml Output Total 0 ml 0 ml Balance 100 ml 50 ml 530 ml 340 ml Intake Oral 100 ml 480 ml 240 ml IV Total 50 ml 50 ml 100 ml Output Urine Total 0 ml 0 ml # Bowel Movements 1 1 1 Result Diagram: 05/20/17 0445 05/18/17 0500 Imaging Last Impressions Chest X-Ray 05/18/17 0600 Signed Impressions: Service Date/Time: Thursday, May 18, 2017 03:32 - CONCLUSION: No significant change has occurred. Damien Pierson MD Objective Remarks GENERAL: This is a elderly gentleman, appears critically ill CARDIOVASCULAR: Irregularly irregular, crescendo decrescendo murmur at LSB, hypotensive RESPIRATORY: Air entry equal bilaterally. No wheezes GASTROINTESTINAL: Abdomen soft, non-tender, nondistended. No hepato-splenomegaly MUSCULOSKELETAL: Extremities without clubbing, cyanosis. 1+ pitting edema. Left fore arm fistula in place NEUROLOGICAL: Awake and alert. Motor and sensory grossly within normal limits. Follows commands normal speech A/P Assessment and Plan Atrial fibrillation with RVR Hypotension Congestive heart failure Elevated troponin Probable sepsis Coagulopathy secondary to Coumadin/supratherapeutic INR Severe aortic stenosis (peak 94, mean 55, NATA 0.5) Bilateral pleural effusion secondary to CHF CAD with LAD lesion End-stage renal disease on hemodialysis Recent history of C. difficile colitis Diabetes Hypertension Chronic atrial fibrillation Pressure wound sacral. Wound care following. Has some pain added norco bid prn say sis helps a lot. Cleanse wound to L side of coccyx with normal saline and pat dry and apply Maxorb II to wound bed only loosely packed. Apply skin prep to periwound and cover with bordered gauze. Change dressing every 2 days or PRN if saturated or dislodged. Apply bilateral heel boots. Turn patient every 2 hours and PRN for comfort and offloading pressure from ju prominences. PLAN: NEURO: -Minimize all sedation -Encephalopathy most likely metabolic, improving RESP: -Nasal cannula oxygen. Keep oxygen saturation above 90% -DuoNeb every 6 hours as needed -Bilateral pleural effusion secondary to CHF, continue fluid removal with dialysis -Repeat chest x-ray CV: -Was on Yosef-Synephrine, DCd -Cardizem PO 60 mg every 6 -Daily digoxin started by cardiology changed to q. other day / ESRD -Coumadin held due to supra therapeutic INR. Pharmacy to dose coumadin -Aspirin 81 mg daily -No beta-blockers due to hypotension -Cardiology Dr. Ortiz -Per CTS Dr. Nielson, may need balloon valvuloplasty for severe aortic stenosis, once more stable. PCI/TAVR later-see Dr. Ortiz's note -Need his teeth extracted prior to any surgical intervention (Dr. Santiago recommended OP appointment) GI: -Renal diet, IV famotidine : -End-stage renal disease on hemodialysis -Nephrology Dr. Mayers ID: -IV vancomycin, IV Zosyn, p.o. Flagyl, DC vanc -Follow-up on cultures influenza negative, check C. difficile if diarrhea persists. All cultures negative today HEME: -Monitor CBC, CMP, INR -Coumadin on hold due to subtherapeutic INR, pharmacy to dose Coumadin ENDO: -Monitor electrolytes closely PROPH: -Bilateral lower extremity SCDs. INR 2.1. IV famotidine LINES: - RIJ central line placed 05/15/17 Transfer to [facility] DC plan: DC when improves. Ideally DC [facility] to follow up as OP with Dr Santiago OMFS for teeth extraction prior to PCI/TAVR. Bailey Kim MD May 20, 2017 08:38
[2017-05-20] MEDS: SEVELAMER CARBONATE 800 MG TAB PO SCH ×3 (08:52→18:14)
[2017-05-20] MEDS: ASPIRIN 81 MG CHEW TAB CHEW SCH (08:52)
[2017-05-20] MEDS: ALLOPURINOL 100 MG TAB PO SCH (08:52)
[2017-05-20] MEDS: PIPERACIL-TAZO 2.25 GM PREMIX 50 ML IV SCH ×2 (08:53→18:16)
[2017-05-20] MEDS: CINACALCET HYDROCHLORIDE 30 MG TAB PO SCH (08:53)
[2017-05-20] MEDS: SODIUM CHLORIDE 0.9% FLUSH 10 ML FLUSH IV FLUSH SCH ×2 (09:00→21:35)
[2017-05-20] MEDS: CHLORHEXIDINE GLUCONATE 0.12% 15 ML CUP SWISH-SPIT SCH ×3 (09:00→18:00)
--- NOTE | 2017-05-20 11:54 | PD.CARD.PN ---
Subjective Subjective Remarks No chest pain/SOB Heart rates more elevated today, around 100-120 Objective Medications Current Medications Medications (Trade) Dose Ordered Sig/Jamal Route Start Time Stop Time Status Last Admin (NS Flush) 2 ml UNSCH PRN IV FLUSH 05/13/17 19:45 (NS Flush) 2 ml BID IV FLUSH 05/13/17 21:00 05/20/17 09:00 (Narcan Inj) 0.4 mg UNSCH PRN IV PUSH 05/13/17 19:45 (Zyloprim) 100 mg DAILY PO 05/14/17 09:00 05/20/17 08:52 (Sensipar) 30 mg DAILY PO 05/14/17 09:00 05/20/17 08:53 (Renvela) 2,400 mg TID PO 05/14/17 09:00 05/20/17 08:52 Miscellaneous Information Patient in critical care unit? Ass... Q361D .XX 05/14/17 05:30 (Aspirin Chew) 81 mg DAILY CHEW 05/14/17 09:00 05/20/17 08:52 (Brethine Inj) 1 mg UNSCH PRN SQ 05/14/17 08:00 Piperacillin Sod/ Tazobactam Sod 50 ml @ 100 mls/hr Q8H IV 05/14/17 08:00 05/20/17 08:53 (Flagyl) 500 mg Q8HR PO 05/14/17 14:00 05/20/17 04:48 Sodium Chloride 1,000 ml @ 0 mls/hr Q0M PRN OTHER 05/14/17 11:21 (Heparin Inj) 8,000 units UNSCH PRN IV FLUSH 05/14/17 11:30 Sodium Chloride 1,000 ml @ 200 mls/hr Q5H PRN IV 05/14/17 11:21 Sodium Chloride 1,000 ml @ 0 mls/hr Q0M PRN OTHER 05/14/17 11:21 (Mannitol Inj) 12.5 gm UNSCH PRN IV 05/14/17 11:30 Albumin Human 100 ml @ 60 mls/hr UNSCH PRN IV 05/14/17 11:30 05/15/17 09:38 (NS Flush) 5 ml UNSCH PRN IV FLUSH 05/14/17 11:30 (Heparin Inj) UNSCH PRN .XX 05/14/17 11:30 (Gentamicin Inj) 20 mg UNSCH PRN OTHER 05/14/17 11:30 (Zofran Inj) 4 mg UNSCH PRN IV PUSH 05/14/17 11:30 (Tylenol) 650 mg UNSCH PRN PO 05/14/17 11:30 05/18/17 16:25 (Benadryl) 25 mg UNSCH PRN PO 05/14/17 11:30 (Nitrostat Sl) 0.4 mg UNSCH PRN SL 05/14/17 11:30 (Catapres) 0.1 mg UNSCH PRN PO 05/14/17 11:30 (Gelfoam 12 Mm/7 Mm Top) 1 foam UNSCH PRN TOP 05/14/17 11:30 05/18/17 09:22 Pharmacy Profile Note 0 ml @ 0 mls/hr UNSCH OTHER 05/15/17 07:45 (Duoneb Neb) 1 ampule Q4HR NEB PRN NEB 05/15/17 07:45 (Cardizem) 60 mg Q6H PO 05/16/17 14:00 05/20/17 08:52 (Peridex 0.12% Liq) 15 ml TID SWISH-SPIT 05/16/17 13:00 05/18/17 16:33 (Lanoxin) 0.125 mg Q48H PO 05/19/17 09:00 05/19/17 09:34 ([place] 5-325 Mg) 1 tab BID PRN PO 05/18/17 21:00 05/19/17 20:53 (Lopressor) 12.5 mg Q8HR PO 05/19/17 14:30 05/19/17 15:03 (Pill Splitter) 1 ea UNSCH PRN OTHER 05/19/17 15:00 (Coumadin) 0.5 mg DAILY@1600 PO 05/20/17 16:00 Vital Signs / I&O Vital Signs Date Time Temp Pulse Resp B/P (MAP) Pulse Ox O2 Delivery O2 Flow Rate FiO2 05/20/17 09:30 114 19 101/67 (78) 85 05/20/17 09:30 114 05/20/17 09:00 117 18 115/75 (88) 99 05/20/17 09:00 117 05/20/17 08:54 95 Nasal Cannula 2.00 05/20/17 08:30 113 2 08:30 113 17 107/77 (87) 97 05/20/17 08:00 96.9 113 16 100/68 (79) 97 05/20/17 08:00 113 2 08:00 100 Nasal Cannula 2.00 05/20/17 07:30 111 05/20/17 07:30 111 19 102/75 (84) 97 05/20/17 07:00 109 14 98/73 (81) 94 05/20/17 07:00 109 05/20/17 06:00 108 05/20/17 04:00 110 05/20/17 04:00 97.3 110 12 102/67 (79) 100 05/20/17 02:00 105 05/20/17 00:00 105 05/20/17 00:00 97.5 105 10 107/59 (75) 99 05/19/17 22:00 104 05/19/17 21:07 100 Nasal Cannula 2.00 05/19/17 20:00 97.4 100 16 107/68 (81) 100 18 20:00 100 18 19:00 100 Nasal Cannula 2.00 18 18:30 99 17 108/76 (87) 81 18 18:00 104 05/19/18 18:00 104 11 111/55 (73) 78 18 17:30 103 15 105/70 (82) 93 18 17:00 104 18 17:00 104 18 111/74 (86) 100 18 16:30 109 12 106/69 (81) 100 18 16:00 112 18 16:00 97.6 112 15 98/73 (81) 86 05/19/18 15:30 119 14 94/70 (78) 85 14/18 15:00 115 214/18 15:00 115 14 100/72 (81) 91 05/19/18 14:30 123 11 101/74 (83) 100 214/18 14:00 120 2/14/18 14:00 120 12 91/69 (76) 89 14/18 13:30 121 14 104/65 (78) 100 05/19/17 13:00 119 05/19/17 13:00 119 12 98/56 (70) 89 05/19/17 12:30 120 15 98/70 (79) 88 05/19/17 12:00 114 05/19/17 12:00 97.6 114 12 102/67 (79) 89 I/O 05/19/17 05/19/17 05/19/17 05/20/17 05/20/17 05/20/17 07:00 15:00 23:00 07:00 15:00 23:00 Intake Total 100 ml 50 ml 530 ml 340 ml Output Total 0 ml 0 ml Balance 100 ml 50 ml 530 ml 340 ml Intake Oral 100 ml 480 ml 240 ml IV Total 50 ml 50 ml 100 ml Output Urine Total 0 ml 0 ml # Bowel Movements 1 1 1 Physical Exam GENERAL: NAD, AAOx3 SKIN: Warm and dry. HEAD: Atraumatic. Normocephalic. EYES: Pupils equal and round. No scleral icterus. No injection or drainage. ENT: No nasal bleeding or discharge. Mucous membranes pink and moist. NECK: Trachea midline. No JVD. CARDIOVASCULAR: Irregularly irregular, 3/6 crescendo-decrescendo murmur to the RSB RESPIRATORY: No accessory muscle use. Clear to auscultation. Breath sounds equal bilaterally. GASTROINTESTINAL: Abdomen soft, non-tender, nondistended. Hepatic and splenic margins not palpable. MUSCULOSKELETAL: Extremities without clubbing, cyanosis, or edema. No obvious deformities. NEUROLOGICAL: Awake and alert. No obvious cranial nerve deficits. Motor grossly within normal limits. Five out of 5 muscle strength in the arms and legs. Normal speech. PSYCHIATRIC: Appropriate mood and affect; insight and judgment normal. Laboratory Laboratory Tests Test 05/20/17 04:45 White Blood Count 10.0 TH/MM3 Red Blood Count 3.47 MIL/MM3 Hemoglobin 11.6 GM/DL Hematocrit 35.8 % Mean Corpuscular Volume 103.1 FL Mean Corpuscular Hemoglobin 33.3 PG Mean Corpuscular Hemoglobin Concent 32.3 % Red Cell Distribution Width 17.6 % Platelet Count 147 TH/MM3 Mean Platelet Volume 9.7 FL Prothrombin Time 19.4 SEC Prothromb Time International Ratio 1.9 RATIO Assessment and Plan Problem List: (1) Aortic valvar stenosis ICD Codes: I35.0 - Nonrheumatic aortic (valve) stenosis (2) ESRD (end stage renal disease) on dialysis ICD Codes: N18.6 - End stage renal disease; Z99.2 - Dependence on renal dialysis (3) Atrial fibrillation ICD Codes: I48.91 - Unspecified atrial fibrillation (4) Diabetes mellitus ICD Codes: E11.9 - Diabetes mellitus Status: Chronic (5) Hypotension ICD Codes: I95.9 - Hypotension, unspecified Status: Acute (6) End stage renal disease on dialysis ICD Codes: N18.6 - End stage renal disease on dialysis; Z99.2 - Dependence on renal dialysis Status: Acute (7) CAD (coronary artery disease) ICD Codes: I25.10 - Atherosclerotic heart disease of [place] coronary artery without angina pectoris Assessment and Plan 1) Afib Still elevated heart rates Attempted to add BB therapy, but held due to blood pressure, parameter set for BB as long as SBP > 90 Agree with Cardizem and Digoxin 2) Shock Most likely cardiogenic with Afib with RVR as well as his aortic stenosis 3) Overall believe his admission is based on his Afib with RVR more than anything 4) Severe Consideration of PCI with BAV, as any time he goes into RVR he's going to become shock-like, will have to see how he does Would end up being BMS of LAD as needs dental work Eventual TAVR, will need to have dental work first but having difficulty getting Oral Maxillofacial surgery saw him and wants to see outpt For now, will control heart rates for Afib and if stable get him to rehab then to Dr. Santiago for dental work If further episodes of concern then would consider PCI and BAV, as patient was on minimal medications to control Afib when he left here last admission Problem Qualifiers (1) Atrial fibrillation: Qualified Codes: I48.91 - Unspecified atrial fibrillation Jeffrey Ortiz DO May 20, 2017 11:54
[2017-05-20] MEDS ORDERED: WARFARIN SOD 1 MG TAB PO SCH (16:00)
[2017-05-20] MEDS: ACETAMINOPHEN/HYDROcodone 325 MG/5 MG TAB PO PRN (18:15)
--- NOTE | 2017-05-20 18:49 | HHI.NPPN ---
Subjective History of Present Illness 76-year-old male known to me from before with past medical history of hypertension, diabetes mellitus, hyperlipidemia, severe aortic stenosis, atrial fibrillation, chronic anemia, who was recently discharged from the hospital and brought back because of hypotension from the dialysis. The patient has been on regular dialysis Wednesday, and Wednesday. Additional Remarks Patient is alert, no SOB, seen in AM, started eating better. Review of Systems Respiratory Respiratory Remarks Denies sob Gastrointestinal GI Remarks No abdominal pain Musculoskeletal MS: Pain/Stiffness MS Remarks back Objective Data Data 05/20/17 05/21/17 18:59 06:59 Output Total 1500 ml Balance -1500 ml Hemodialysis 1500 ml Vital Signs Date Time Temp Pulse Resp B/P (MAP) Pulse Ox O2 Delivery O2 Flow Rate FiO2 05/20/17 09:30 114 19 101/67 (78) 85 05/20/17 09:30 114 05/20/17 09:00 117 18 115/75 (88) 99 05/20/17 09:00 117 05/20/17 08:54 95 Nasal Cannula 2.00 05/20/17 08:30 113 05/20/17 08:30 113 17 107/77 (87) 97 05/20/17 08:00 96.9 113 16 100/68 (79) 97 05/20/17 08:00 113 05/20/17 08:00 100 Nasal Cannula 2.00 05/20/17 07:30 111 05/20/17 07:30 111 19 102/75 (84) 97 05/20/17 07:00 109 14 98/73 (81) 94 05/20/17 07:00 109 05/20/17 06:00 108 05/20/17 04:00 110 05/20/17 04:00 97.3 110 12 102/67 (79) 100 05/20/17 02:00 105 05/20/17 00:00 105 05/20/17 00:00 97.5 105 10 107/59 (75) 99 05/19/17 22:00 104 05/19/17 21:07 100 Nasal Cannula 2.00 05/19/17 20:00 97.4 100 16 107/68 (81) 100 05/19/17 20:00 100 05/19/17 19:00 100 Nasal Cannula 2.00 -: 05/20/17 0445 05/18/17 0500 Physical Exam General Appearance: No Acute Distress, Comfortable Eyes Eye Exam: Pupils Equal Pulmonary Resp Exam: Breath Sounds Equal, No Distress, Decreased Bases, Diminished Breath Sounds Cardiology CV Exam: Normal Sinus Rhythm, Irregular, Tachycardia Gastrointestinal/Abdomen GI Exam: Soft, Non-Tender, Bowel Sounds Present Extremeties Extremities Exam: Trace Edema Neurologic Neuro Exam: Alert, Awake Psychiatric Psych Exam: Appropriate Responses Assessment/Plan Assessment Summary: Hypotension, End Stage Renal Disease Problem List: (1) Aortic valvar stenosis ICD Codes: I35.0 - Nonrheumatic aortic (valve) stenosis (2) ESRD (end stage renal disease) on dialysis ICD Codes: N18.6 - End stage renal disease; Z99.2 - Dependence on renal dialysis (3) Atrial fibrillation ICD Codes: I48.91 - Unspecified atrial fibrillation (4) Diabetes mellitus ICD Codes: E11.9 - Diabetes mellitus Status: Chronic (5) Hypotension ICD Codes: I95.9 - Hypotension, unspecified Status: Acute Plan Patient remain with BP on lower side, and Tachycardia. HD will be today. Encourage oral intake. Problem Qualifiers (1) Atrial fibrillation: Qualified Codes: I48.91 - Unspecified atrial fibrillation Quiana Mayers MD May 20, 2017 18:49
[2017-05-21] VITALS (9 sets, daily range): BP systolic 97–114; BP diastolic 60–77; PULSE 115–124; RESP 18–22; TEMP 97.8–98.4; O2SAT 98–100
[2017-05-21] MEDS: PIPERACIL-TAZO 2.25 GM PREMIX 50 ML IV SCH ×3 (00:51→20:03)
[2017-05-21] MEDS: ACETAMINOPHEN 325 MG TAB PO PRN (00:52)
[2017-05-21] MEDS: DILTIAZEM HCL 60 MG TAB PO SCH ×4 (02:58→20:00)
[2017-05-21 05:15] LABS: INTERNATIONAL NORMALIZED RATIO 2.2 RATIO; PROTHROMBIN TIME - PATIENT 22.5 SEC (9.8-11.6)
[2017-05-21] MEDS: metroNIDAZOLE 500 MG TAB PO SCH ×3 (05:54→21:40)
[2017-05-21] MEDS: ACETAMINOPHEN/HYDROcodone 325 MG/5 MG TAB PO PRN ×2 (05:55→21:40)
[2017-05-21] MEDS: METOPROLOL TARTRATE 25 MG TAB PO SCH ×2 (05:55→20:04)
--- NOTE | 2017-05-21 08:02 | HHI.PR ---
Subjective Remarks Symptoms that he feels much better. He better. Says he has been tachycardic for the past 30 years and this is his heart rate at baseline. He denies any chest pain or shortness of breath, no lightheadedness. Nausea vomiting no diarrhea or constipation. Objective Vitals Vital Signs Date Time Temp Pulse Resp B/P (MAP) Pulse Ox O2 Delivery O2 Flow Rate FiO2 05/21/17 06:00 121 05/21/17 04:00 97.8 116 22 97/65 (76) 100 05/21/17 04:00 116 05/21/17 02:00 115 05/21/17 01:52 18 05/21/17 00:00 119 05/21/17 00:00 98.4 119 22 99/60 (73) 99 05/20/17 22:00 121 05/20/17 20:00 100 Nasal Cannula 2.00 05/20/17 20:00 116 05/20/17 20:00 98.2 116 24 106/74 (85) 97 05/20/17 19:20 99 Nasal Cannula 3.00 05/20/17 19:15 18 05/20/17 18:00 110 20 103/62 (76) 97 05/20/17 18:00 110 05/20/17 12:00 98.6 116 15 119/74 (89) 93 05/20/17 12:00 116 05/20/17 09:30 114 19 101/67 (78) 85 05/20/17 09:30 114 05/20/17 09:00 117 18 115/75 (88) 99 05/20/17 09:00 117 05/20/17 08:54 95 Nasal Cannula 2.00 05/20/17 08:30 113 05/20/17 08:30 113 17 107/77 (87) 97 I/O 05/20/17 05/20/17 05/20/17 05/21/17 05/21/17 05/21/17 07:00 15:00 23:00 07:00 15:00 23:00 Intake Total 340 ml 50 ml 290 ml 240 ml Output Total 0 ml 1500 ml 0 ml Balance 340 ml 50 ml -1210 ml 240 ml Intake Oral 240 ml 240 ml 240 ml IV Total 100 ml 50 ml 50 ml Output Urine Total 0 ml 0 ml 0 ml Hemodialysis 1500 ml # Bowel Movements 1 0 Result Diagram: 05/20/17 0445 05/18/17 0500 Imaging Last Impressions Chest X-Ray 05/18/17 0600 Signed Impressions: Service Date/Time: Thursday, May 18, 2017 03:32 - CONCLUSION: No significant change has occurred. Damien Pierson MD Objective Remarks GENERAL: This is a elderly gentleman, appears critically ill CARDIOVASCULAR: Irregularly irregular, crescendo decrescendo murmur at LSB, hypotensive RESPIRATORY: Air entry equal bilaterally. No wheezes GASTROINTESTINAL: Abdomen soft, non-tender, nondistended. No hepato-splenomegaly MUSCULOSKELETAL: Extremities without clubbing, cyanosis. 1+ pitting edema. Left fore arm fistula in place NEUROLOGICAL: Awake and alert. Motor and sensory grossly within normal limits. Follows commands normal speech A/P Assessment and Plan Atrial fibrillation with RVR Hypotension Congestive heart failure Elevated troponin Probable sepsis Coagulopathy secondary to Coumadin/supratherapeutic INR Severe aortic stenosis (peak 94, mean 55, NATA 0.5) Bilateral pleural effusion secondary to CHF CAD with LAD lesion End-stage renal disease on hemodialysis Recent history of C. difficile colitis Diabetes Hypertension Chronic atrial fibrillation Pressure wound sacral. Wound care following. Has some pain added norco bid prn say sis helps a lot. Cleanse wound to L side of coccyx with normal saline and pat dry and apply Maxorb II to wound bed only loosely packed. Apply skin prep to periwound and cover with bordered gauze. Change dressing every 2 days or PRN if saturated or dislodged. Apply bilateral heel boots. Turn patient every 2 hours and PRN for comfort and offloading pressure from ju prominences. PLAN: NEURO: -Minimize all sedation -Encephalopathy most likely metabolic, improving RESP: -Nasal cannula oxygen. Keep oxygen saturation above 90% -DuoNeb every 6 hours as needed -Bilateral pleural effusion secondary to CHF, continue fluid removal with dialysis -Repeat chest x-ray CV: -Was on Yosef-Synephrine, DCd -Cardizem PO 60 mg every 6 -Daily digoxin started by cardiology changed to q. other day 2/2 ESRD -Coumadin held due to supra therapeutic INR. Pharmacy to dose coumadin -Aspirin 81 mg daily -No beta-blockers due to hypotension -Cardiology Dr. Ortiz -Per CTS Dr. Nielson, may need balloon valvuloplasty for severe aortic stenosis, once more stable. PCI/TAVR later-see Dr. Ortiz's note -Need his teeth extracted prior to any surgical intervention (Dr. Santiago recommended OP appointment) GI: -Renal diet, IV famotidine : -End-stage renal disease on hemodialysis -Nephrology Dr. Mayers ID: -IV vancomycin, IV Zosyn, p.o. Flagyl, DC vanc -Follow-up on cultures influenza negative, check C. difficile if diarrhea persists. All cultures negative today HEME: -Monitor CBC, CMP, INR -Coumadin on hold due to subtherapeutic INR, pharmacy to dose Coumadin ENDO: -Monitor electrolytes closely PROPH: -Bilateral lower extremity SCDs. INR 2.1. IV famotidine LINES: - RIJ central line placed 05/15/17 Transfer to [facility] DC plan: DC when improves. Ideally DC [facility] to follow up as OP with Dr Santiago [facility] for teeth extraction prior to PCI/TAVR. Bailey Kim MD May 21, 2017 08:02
[2017-05-21] MEDS ORDERED: NORC5TAB PO (08:58)
[2017-05-21] MEDS: CHLORHEXIDINE GLUCONATE 0.12% 15 ML CUP SWISH-SPIT SCH ×3 (09:00→18:00)
[2017-05-21] MEDS: ASPIRIN 81 MG CHEW TAB CHEW SCH (09:50)
[2017-05-21] MEDS: ALLOPURINOL 100 MG TAB PO SCH (09:50)
[2017-05-21] MEDS: DIGOXIN 0.125 MG TAB PO SCH (09:50)
[2017-05-21] MEDS: CINACALCET HYDROCHLORIDE 30 MG TAB PO SCH (09:50)
[2017-05-21] MEDS: SEVELAMER CARBONATE 800 MG TAB PO SCH ×3 (09:50→20:03)
[2017-05-21] MEDS: SODIUM CHLORIDE 0.9% FLUSH 10 ML FLUSH IV FLUSH SCH ×2 (09:51→21:40)
--- NOTE | 2017-05-21 12:31 | PD.CARD.PN ---
Subjective Subjective Remarks No chest pain/SOB Heart rates still higher than would like, around 110 Objective Medications Current Medications Medications (Trade) Dose Ordered Sig/Jamal Route Start Time Stop Time Status Last Admin (NS Flush) 2 ml UNSCH PRN IV FLUSH 05/13/17 19:45 (NS Flush) 2 ml BID IV FLUSH 05/13/17 21:00 05/21/17 09:51 (Narcan Inj) 0.4 mg UNSCH PRN IV PUSH 05/13/17 19:45 (Zyloprim) 100 mg DAILY PO 05/14/17 09:00 05/21/17 09:50 (Sensipar) 30 mg DAILY PO 05/14/17 09:00 05/21/17 09:50 (Renvela) 2,400 mg TID PO 05/14/17 09:00 05/21/17 09:50 Miscellaneous Information Patient in critical care unit? Ass... Q361D .XX 05/14/17 05:30 (Aspirin Chew) 81 mg DAILY CHEW 05/14/17 09:00 05/21/17 09:50 (Brethine Inj) 1 mg UNSCH PRN SQ 05/14/17 08:00 Piperacillin Sod/ Tazobactam Sod 50 ml @ 100 mls/hr Q8H IV 05/14/17 08:00 05/21/17 09:49 (Flagyl) 500 mg Q8HR PO 05/14/17 14:00 05/21/17 05:54 Sodium Chloride 1,000 ml @ 0 mls/hr Q0M PRN OTHER 05/14/17 11:21 (Heparin Inj) 8,000 units UNSCH PRN IV FLUSH 05/14/17 11:30 Sodium Chloride 1,000 ml @ 200 mls/hr Q5H PRN IV 05/14/17 11:21 Sodium Chloride 1,000 ml @ 0 mls/hr Q0M PRN OTHER 05/14/17 11:21 (Mannitol Inj) 12.5 gm UNSCH PRN IV 05/14/17 11:30 Albumin Human 100 ml @ 60 mls/hr UNSCH PRN IV 05/14/17 11:30 05/15/17 09:38 (NS Flush) 5 ml UNSCH PRN IV FLUSH 05/14/17 11:30 (Heparin Inj) UNSCH PRN .XX 05/14/17 11:30 (Gentamicin Inj) 20 mg UNSCH PRN OTHER 05/14/17 11:30 (Zofran Inj) 4 mg UNSCH PRN IV PUSH 05/14/17 11:30 (Tylenol) 650 mg UNSCH PRN PO 05/14/17 11:30 05/21/17 00:52 (Benadryl) 25 mg UNSCH PRN PO 05/14/17 11:30 (Nitrostat Sl) 0.4 mg UNSCH PRN SL 05/14/17 11:30 (Catapres) 0.1 mg UNSCH PRN PO 05/14/17 11:30 (Gelfoam 12 Mm/7 Mm Top) 1 foam UNSCH PRN TOP 05/14/17 11:30 05/18/17 09:22 Pharmacy Profile Note 0 ml @ 0 mls/hr UNSCH OTHER 05/15/17 07:45 (Duoneb Neb) 1 ampule Q4HR NEB PRN NEB 05/15/17 07:45 (Cardizem) 60 mg Q6H PO 05/16/17 14:00 05/21/17 09:51 (Peridex 0.12% Liq) 15 ml TID SWISH-SPIT 05/16/17 13:00 05/18/17 16:33 (Lanoxin) 0.125 mg Q48H PO 05/19/17 09:00 05/21/17 09:50 ([place] 5-325 Mg) 1 tab BID PRN PO 05/18/17 21:00 05/21/17 05:55 (Lopressor) 12.5 mg Q8HR PO 05/19/17 14:30 05/21/17 05:55 (Pill Splitter) 1 ea UNSCH PRN OTHER 05/19/17 15:00 (Coumadin) 0.5 mg Q48H PO 05/22/17 16:00 Vital Signs / I&O Vital Signs Date Time Temp Pulse Resp B/P (MAP) Pulse Ox O2 Delivery O2 Flow Rate FiO2 05/21/17 09:50 100 Nasal Cannula 2.00 05/21/17 08:00 Nasal Cannula 2.00 05/21/17 06:00 121 05/21/17 04:00 97.8 116 22 97/65 (76) 100 05/21/17 04:00 116 05/21/17 02:00 115 05/21/17 01:52 18 05/21/17 00:00 119 05/21/17 00:00 98.4 119 22 99/60 (73) 99 05/20/17 22:00 121 05/20/17 20:00 100 Nasal Cannula 2.00 05/20/17 20:00 116 05/20/17 20:00 98.2 116 24 106/74 (85) 97 05/20/17 19:20 99 Nasal Cannula 3.00 05/20/17 19:15 18 05/20/17 18:00 110 20 103/62 (76) 97 05/20/17 18:00 110 I/O 05/20/17 05/20/17 05/20/17 05/21/17 05/21/17 05/21/17 07:00 15:00 23:00 07:00 15:00 23:00 Intake Total 340 ml 50 ml 290 ml 240 ml Output Total 0 ml 1500 ml 0 ml Balance 340 ml 50 ml -1210 ml 240 ml Intake Oral 240 ml 240 ml 240 ml IV Total 100 ml 50 ml 50 ml Output Urine Total 0 ml 0 ml 0 ml Hemodialysis 1500 ml # Bowel Movements 1 0 Physical Exam GENERAL: NAD, AAOx3 SKIN: Warm and dry. HEAD: Atraumatic. Normocephalic. EYES: Pupils equal and round. No scleral icterus. No injection or drainage. ENT: No nasal bleeding or discharge. Mucous membranes pink and moist. NECK: Trachea midline. No JVD. CARDIOVASCULAR: Irregularly irregular, 3/6 crescendo-decrescendo murmur to the RSB RESPIRATORY: No accessory muscle use. Clear to auscultation. Breath sounds equal bilaterally. GASTROINTESTINAL: Abdomen soft, non-tender, nondistended. Hepatic and splenic margins not palpable. MUSCULOSKELETAL: Extremities without clubbing, cyanosis, or edema. No obvious deformities. NEUROLOGICAL: Awake and alert. No obvious cranial nerve deficits. Motor grossly within normal limits. Five out of 5 muscle strength in the arms and legs. Normal speech. PSYCHIATRIC: Appropriate mood and affect; insight and judgment normal. Laboratory Laboratory Tests Test 05/21/17 04:37 Prothrombin Time 22.5 SEC Prothromb Time International Ratio 2.2 RATIO Assessment and Plan Problem List: (1) Aortic valvar stenosis ICD Codes: I35.0 - Nonrheumatic aortic (valve) stenosis (2) ESRD (end stage renal disease) on dialysis ICD Codes: N18.6 - End stage renal disease; Z99.2 - Dependence on renal dialysis (3) Atrial fibrillation ICD Codes: I48.91 - Unspecified atrial fibrillation (4) Diabetes mellitus ICD Codes: E11.9 - Diabetes mellitus Status: Chronic (5) Hypotension ICD Codes: I95.9 - Hypotension, unspecified Status: Acute (6) End stage renal disease on dialysis ICD Codes: N18.6 - End stage renal disease on dialysis; Z99.2 - Dependence on renal dialysis Status: Acute (7) CAD (coronary artery disease) ICD Codes: I25.10 - Atherosclerotic heart disease of [place] coronary artery without angina pectoris Assessment and Plan 1) Afib Still elevated heart rates Will attempt to increase BB therapy... may need Amiodarone as blood pressure borderline Agree with Cardizem and Digoxin 2) Shock Most likely cardiogenic with Afib with RVR as well as his aortic stenosis 3) Overall believe his admission is based on his Afib with RVR more than anything 4) Severe Consideration of PCI with BAV, as any time he goes into RVR he's going to become shock-like, will have to see how he does Would end up being BMS of LAD as needs dental work Eventual TAVR, will need to have dental work first but having difficulty getting Oral Maxillofacial surgery saw him and wants to see outpt For now, will control heart rates for Afib and if stable get him to rehab then to Dr. Santiago for dental work If further episodes of concern then would consider PCI and BAV, as patient was on minimal medications to control Afib when he left here last admission Problem Qualifiers (1) Atrial fibrillation: Qualified Codes: I48.91 - Unspecified atrial fibrillation Jeffrey Ortiz DO May 21, 2017 12:31
--- NOTE | 2017-05-21 16:06 | HHI.NPPN ---
Subjective History of Present Illness 76-year-old male known to me from before with past medical history of hypertension, diabetes mellitus, hyperlipidemia, severe aortic stenosis, atrial fibrillation, chronic anemia, who was recently discharged from the hospital and brought back because of hypotension from the dialysis. The patient has been on regular dialysis Wednesday, and Wednesday. Additional Remarks Patient is alert, no SOB, dialysis tomorrow (Prachi Huitron) Review of Systems Respiratory Respiratory Remarks Denies sob (Prachi Huitron) Gastrointestinal GI Remarks No abdominal pain (Prachi Huitron) Musculoskeletal MS: Pain/Stiffness MS Remarks back (Prachi Huitron) Objective Data Data Vital Signs Date Time Temp Pulse Resp B/P (MAP) Pulse Ox O2 Delivery O2 Flow Rate FiO2 05/21/17 09:50 100 Nasal Cannula 2.00 05/21/17 08:00 Nasal Cannula 2.00 05/21/17 06:00 121 05/21/17 04:00 97.8 116 22 97/65 (76) 100 05/21/17 04:00 116 05/21/17 02:00 115 05/21/17 01:52 18 05/21/17 00:00 119 05/21/17 00:00 98.4 119 22 99/60 (73) 99 05/20/17 22:00 121 05/20/17 20:00 100 Nasal Cannula 2.00 05/20/17 20:00 116 05/20/17 20:00 98.2 116 24 106/74 (85) 97 05/20/17 19:20 99 Nasal Cannula 3.00 05/20/17 19:15 18 05/20/17 18:00 110 20 103/62 (76) 97 05/20/17 18:00 110 (Prachi Huitron) -: 05/20/17 0445 05/18/17 0500 Physical Exam General Appearance: No Acute Distress, Comfortable (Prachi Huitron) Eyes Eye Exam: Pupils Equal (Prachi Huitron) Pulmonary Resp Exam: Breath Sounds Equal, No Distress, Decreased Bases, Diminished Breath Sounds (Prachi Huitron) Cardiology CV Exam: Normal Sinus Rhythm, Irregular, Tachycardia (Prachi Huitron) Gastrointestinal/Abdomen GI Exam: Soft, Non-Tender, Bowel Sounds Present (Prachi Huitron) Extremeties Extremities Exam: Trace Edema (Prachi Huitron) Neurologic Neuro Exam: Alert, Awake (Prachi Huitron) Psychiatric Psych Exam: Appropriate Responses (Prachi Huitron) Assessment/Plan Assessment Summary: Hypotension, End Stage Renal Disease Problem List: (1) Aortic valvar stenosis ICD Codes: I35.0 - Nonrheumatic aortic (valve) stenosis (2) ESRD (end stage renal disease) on dialysis ICD Codes: N18.6 - End stage renal disease; Z99.2 - Dependence on renal dialysis (3) Atrial fibrillation ICD Codes: I48.91 - Unspecified atrial fibrillation (4) Diabetes mellitus ICD Codes: E11.9 - Diabetes mellitus Status: Chronic (5) Hypotension ICD Codes: I95.9 - Hypotension, unspecified Status: Acute Plan Patient remain with BP on lower side, and Tachycardia. Encourage increased PO intake/ nephro supplement HD yesterday with 1500 ml removed Plan for dialysis tomorrow (Prachi Huitron) Plan Patient seen and examined, agree with above. Follow the HR and the BP. (Quiana Mayers MD) Problem Qualifiers (1) Atrial fibrillation: Qualified Codes: I48.91 - Unspecified atrial fibrillation Prachi Huitron May 21, 2017 16:05 Quiana Mayers MD May 21, 2017 20:48
[2017-05-22] VITALS (17 sets, daily range): BP systolic 93–114; BP diastolic 56–77; PULSE 110–127; RESP 13–20; TEMP 96.9–98.2; O2SAT 96–100
[2017-05-22] MEDS: PIPERACIL-TAZO 2.25 GM PREMIX 50 ML IV SCH ×4 (00:08→23:11)
[2017-05-22] MEDS: METOPROLOL TARTRATE 25 MG TAB PO SCH ×5 (00:08→23:11)
[2017-05-22] MEDS: DILTIAZEM HCL 60 MG TAB PO SCH ×4 (00:53→21:05)
[2017-05-22] MEDS: metroNIDAZOLE 500 MG TAB PO SCH ×3 (05:32→21:05)
[2017-05-22 06:48] LABS: INTERNATIONAL NORMALIZED RATIO 2.1 RATIO
--- NOTE | 2017-05-22 08:24 | HHI.PR ---
Subjective Remarks Bed. Appears in distress. Heart rate 115 telemetry. Patient says he is symptomatic and he is heart rate baseline runs high. No chest pain or shortness of breath overnight. Pain is controlled by medications. Plan for hemodialysis today. No nausea vomiting diarrhea constipation Objective Vitals Vital Signs Date Time Temp Pulse Resp B/P (MAP) Pulse Ox O2 Delivery O2 Flow Rate FiO2 05/22/17 06:00 112 05/22/17 04:00 97.4 110 15 99/60 (73) 99 05/22/17 04:00 110 05/22/17 02:00 111 05/22/17 02:00 97.5 113 13 114/77 (89) 99 05/22/17 00:00 118 05/22/17 00:00 96.9 118 20 104/68 (80) 100 05/21/17 22:00 120 05/21/17 20:00 121 05/21/17 20:00 97.9 122 18 106/71 (83) 100 05/21/17 20:00 Nasal Cannula 2.00 05/21/17 18:00 122 05/21/17 16:00 97.9 124 22 114/77 (89) 98 05/21/17 16:00 124 05/21/17 09:50 100 Nasal Cannula 2.00 I/O 05/21/17 05/21/17 05/21/17 05/22/17 05/22/17 05/22/17 07:00 15:00 23:00 07:00 15:00 23:00 Intake Total 240 ml 410 ml 410 ml Output Total 0 ml 0 ml 20 ml Balance 240 ml 410 ml 390 ml Intake Oral 240 ml 360 ml 360 ml IV Total 50 ml 50 ml Output Urine Total 0 ml 0 ml 20 ml # Bowel Movements 3 0 Result Diagram: 05/20/17 0445 05/18/17 0500 Imaging Last Impressions Chest X-Ray 05/18/17 0600 Signed Impressions: Service Date/Time: Thursday, May 18, 2017 03:32 - CONCLUSION: No significant change has occurred. Damien Pierson MD Objective Remarks GENERAL: This is a elderly gentleman, appears critically ill CARDIOVASCULAR: Irregularly irregular, crescendo decrescendo murmur at LSB, hypotensive RESPIRATORY: Air entry equal bilaterally. No wheezes GASTROINTESTINAL: Abdomen soft, non-tender, nondistended. No hepato-splenomegaly MUSCULOSKELETAL: Extremities without clubbing, cyanosis. 1+ pitting edema. Left fore arm fistula in place NEUROLOGICAL: Awake and alert. Motor and sensory grossly within normal limits. Follows commands normal speech A/P Assessment and Plan Atrial fibrillation with RVR Hypotension Congestive heart failure Elevated troponin Probable sepsis Coagulopathy secondary to Coumadin/supratherapeutic INR Severe aortic stenosis (peak 94, mean 55, NATA 0.5) Bilateral pleural effusion secondary to CHF CAD with LAD lesion End-stage renal disease on hemodialysis Recent history of C. difficile colitis Diabetes Hypertension Chronic atrial fibrillation Pressure wound sacral. Wound care following. Has some pain added norco bid prn say sis helps a lot. Cleanse wound to L side of coccyx with normal saline and pat dry and apply Maxorb II to wound bed only loosely packed. Apply skin prep to periwound and cover with bordered gauze. Change dressing every 2 days or PRN if saturated or dislodged. Apply bilateral heel boots. Turn patient every 2 hours and PRN for comfort and offloading pressure from ju prominences. PLAN: NEURO: -Minimize all sedation -Encephalopathy most likely metabolic, improving RESP: -Nasal cannula oxygen. Keep oxygen saturation above 90% -DuoNeb every 6 hours as needed -Bilateral pleural effusion secondary to CHF, continue fluid removal with dialysis -Repeat chest x-ray CV: -Was on Yosef-Synephrine, DCd -Cardizem PO 60 mg every 6 -Daily digoxin started by cardiology changed to q. other day 2/2 ESRD -Coumadin held due to supra therapeutic INR. Pharmacy to dose coumadin -Aspirin 81 mg daily -No beta-blockers due to hypotension -Cardiology Dr. Ortiz -Per CTS Dr. iNelson, may need balloon valvuloplasty for severe aortic stenosis, once more stable. PCI/TAVR later-see Dr. Ortiz's note -Need his teeth extracted prior to any surgical intervention (Dr. Santiago recommended OP appointment) GI: -Renal diet, IV famotidine : -End-stage renal disease on hemodialysis -Nephrology Dr. Mayers ID: -IV vancomycin, IV Zosyn, p.o. Flagyl, DC vanc -Follow-up on cultures influenza negative, check C. difficile if diarrhea persists. All cultures negative today HEME: -Monitor CBC, CMP, INR -Coumadin on hold due to subtherapeutic INR, pharmacy to dose Coumadin ENDO: -Monitor electrolytes closely PROPH: -Bilateral lower extremity SCDs. INR 2.1. IV famotidine LINES: - RIJ central line placed 05/15/17 Transfer to [facility] DC plan: DC when arrangements are done. DC to SNF to follow up as OP with Dr Jack PORTER for teeth extraction prior to PCI/TAVR. Bailey Kim MD May 22, 2017 08:23
[2017-05-22] MEDS: CHLORHEXIDINE GLUCONATE 0.12% 15 ML CUP SWISH-SPIT SCH ×3 (09:00→18:00)
[2017-05-22] MEDS: ASPIRIN 81 MG CHEW TAB CHEW SCH (09:03)
[2017-05-22] MEDS: SEVELAMER CARBONATE 800 MG TAB PO SCH ×3 (09:03→18:22)
[2017-05-22] MEDS: CINACALCET HYDROCHLORIDE 30 MG TAB PO SCH (09:03)
[2017-05-22] MEDS: ALLOPURINOL 100 MG TAB PO SCH (09:03)
--- NOTE | 2017-05-22 12:13 | HHI.NPPN ---
Subjective History of Present Illness 76-year-old male known to me from before with past medical history of hypertension, diabetes mellitus, hyperlipidemia, severe aortic stenosis, atrial fibrillation, chronic anemia, who was recently discharged from the hospital and brought back because of hypotension from the dialysis. The patient has been on regular dialysis Wednesday, and Wednesday. Additional Remarks Patient is sleeping, no SOB, dialysis today Review of Systems Respiratory Respiratory Remarks Denies sob Gastrointestinal GI Remarks No abdominal pain Musculoskeletal MS: Pain/Stiffness MS Remarks back Objective Data Data Vital Signs Date Time Temp Pulse Resp B/P (MAP) Pulse Ox O2 Delivery O2 Flow Rate FiO2 05/22/17 08:43 98 Nasal Cannula 2.00 05/22/17 08:00 112 05/22/17 08:00 Nasal Cannula 2.00 05/22/17 08:00 97.7 115 15 96/66 (76) 99 05/22/17 06:00 112 05/22/17 04:00 97.4 110 15 99/60 (73) 99 05/22/17 04:00 110 05/22/17 02:00 111 05/22/17 02:00 97.5 113 13 114/77 (89) 99 05/22/17 00:00 118 05/22/17 00:00 96.9 118 20 104/68 (80) 100 05/21/17 22:00 120 05/21/17 20:00 121 05/21/17 20:00 97.9 122 18 106/71 (83) 100 05/21/17 20:00 Nasal Cannula 2.00 05/21/17 18:00 122 05/21/17 16:00 97.9 124 22 114/77 (89) 98 05/21/17 16:00 124 -: 05/20/17 0445 05/18/17 0500 Physical Exam General Appearance: No Acute Distress, Comfortable Eyes Eye Exam: Pupils Equal Pulmonary Resp Exam: Breath Sounds Equal, No Distress, Decreased Bases, Diminished Breath Sounds Cardiology CV Exam: Irregular, Arrhythmia, Tachycardia Gastrointestinal/Abdomen GI Exam: Soft, Non-Tender, Bowel Sounds Present Extremeties Extremities Exam: Trace Edema Neurologic Neuro Exam: Alert, Awake Psychiatric Psych Exam: Appropriate Responses Assessment/Plan Assessment Summary: Hypotension, End Stage Renal Disease Problem List: (1) ESRD (end stage renal disease) on dialysis ICD Codes: N18.6 - End stage renal disease; Z99.2 - Dependence on renal dialysis Plan: Patient is on hemodialysis has severe aortic stenosis, congestive heart failure, left forearm AV fistula Hemodialysis is supposed to be done today He continued to feel weak and has severe aortic stenosis with atrial fibrillation Prognosis is guarded 1531 pm seen during dialysis UF 1.5 L (2) Aortic valvar stenosis ICD Codes: I35.0 - Nonrheumatic aortic (valve) stenosis (3) Atrial fibrillation ICD Codes: I48.91 - Unspecified atrial fibrillation (4) Diabetes mellitus ICD Codes: E11.9 - Diabetes mellitus Status: Chronic (5) Hypotension ICD Codes: I95.9 - Hypotension, unspecified Status: Acute Problem Qualifiers (1) Atrial fibrillation: Qualified Codes: I48.91 - Unspecified atrial fibrillation Jose Martin Geurrier MD May 22, 2017 12:13
--- NOTE | 2017-05-22 14:03 | PD.CARD.PN ---
Subjective Subjective Remarks No complaints. No pain Objective Medications Current Medications Medications (Trade) Dose Ordered Sig/Jamal Route Start Time Stop Time Status Last Admin (NS Flush) 2 ml UNSCH PRN IV FLUSH 05/13/17 19:45 (NS Flush) 2 ml BID IV FLUSH 05/13/17 21:00 05/21/17 21:40 (Narcan Inj) 0.4 mg UNSCH PRN IV PUSH 05/13/17 19:45 (Zyloprim) 100 mg DAILY PO 05/14/17 09:00 05/22/17 09:03 (Sensipar) 30 mg DAILY PO 05/14/17 09:00 05/22/17 09:03 (Renvela) 2,400 mg TID PO 05/14/17 09:00 05/22/17 09:03 Miscellaneous Information Patient in critical care unit? Ass... Q361D .XX 05/14/17 05:30 (Aspirin Chew) 81 mg DAILY CHEW 05/14/17 09:00 05/22/17 09:03 (Brethine Inj) 1 mg UNSCH PRN SQ 05/14/17 08:00 Piperacillin Sod/ Tazobactam Sod 50 ml @ 100 mls/hr Q8H IV 05/14/17 08:00 05/22/17 09:04 (Flagyl) 500 mg Q8HR PO 05/14/17 14:00 05/22/17 05:32 Sodium Chloride 1,000 ml @ 0 mls/hr Q0M PRN OTHER 05/14/17 11:21 (Heparin Inj) 8,000 units UNSCH PRN IV FLUSH 05/14/17 11:30 Sodium Chloride 1,000 ml @ 200 mls/hr Q5H PRN IV 05/14/17 11:21 Sodium Chloride 1,000 ml @ 0 mls/hr Q0M PRN OTHER 05/14/17 11:21 (Mannitol Inj) 12.5 gm UNSCH PRN IV 05/14/17 11:30 Albumin Human 100 ml @ 60 mls/hr UNSCH PRN IV 05/14/17 11:30 05/15/17 09:38 (NS Flush) 5 ml UNSCH PRN IV FLUSH 05/14/17 11:30 (Heparin Inj) UNSCH PRN .XX 05/14/17 11:30 (Gentamicin Inj) 20 mg UNSCH PRN OTHER 05/14/17 11:30 (Zofran Inj) 4 mg UNSCH PRN IV PUSH 05/14/17 11:30 (Tylenol) 650 mg UNSCH PRN PO 05/14/17 11:30 05/21/17 00:52 (Benadryl) 25 mg UNSCH PRN PO 05/14/17 11:30 (Nitrostat Sl) 0.4 mg UNSCH PRN SL 05/14/17 11:30 (Catapres) 0.1 mg UNSCH PRN PO 05/14/17 11:30 (Gelfoam 12 Mm/7 Mm Top) 1 foam UNSCH PRN TOP 05/14/17 11:30 05/18/17 09:22 Pharmacy Profile Note 0 ml @ 0 mls/hr UNSCH OTHER 05/15/17 07:45 (Duoneb Neb) 1 ampule Q4HR NEB PRN NEB 05/15/17 07:45 (Cardizem) 60 mg Q6H PO 05/16/17 14:00 05/22/17 09:03 (Peridex 0.12% Liq) 15 ml TID SWISH-SPIT 05/16/17 13:00 05/22/17 09:00 (Lanoxin) 0.125 mg Q48H PO 05/19/17 09:00 05/21/17 09:50 ([place]seo 5-325 Mg) 1 tab BID PRN PO 05/18/17 21:00 05/21/17 21:40 (Pill Splitter) 1 ea UNSCH PRN OTHER 05/19/17 15:00 (Coumadin) 0.5 mg Q48H PO 05/22/17 16:00 (Lopressor) 12.5 mg Q6HR PO 05/21/17 18:00 05/22/17 05:32 Vital Signs / I&O Vital Signs Date Time Temp Pulse Resp B/P (MAP) Pulse Ox O2 Delivery O2 Flow Rate FiO2 05/22/17 10:00 112 05/22/17 08:43 98 Nasal Cannula 2.00 05/22/17 08:00 112 05/22/17 08:00 Nasal Cannula 2.00 05/22/17 08:00 97.7 115 15 96/66 (76) 99 05/22/17 06:00 112 05/22/17 04:00 97.4 110 15 99/60 (73) 99 05/22/17 04:00 110 05/22/17 02:00 111 05/22/17 02:00 97.5 113 13 114/77 (89) 99 05/22/17 00:00 118 05/22/17 00:00 96.9 118 20 104/68 (80) 100 05/21/17 22:00 120 05/21/17 20:00 121 05/21/17 20:00 97.9 122 18 106/71 (83) 100 05/21/17 20:00 Nasal Cannula 2.00 05/21/17 18:00 122 05/21/17 16:00 97.9 124 22 114/77 (89) 98 05/21/17 16:00 124 I/O 05/21/17 05/21/17 05/21/17 05/22/17 05/22/17 05/22/17 07:00 15:00 23:00 07:00 15:00 23:00 Intake Total 240 ml 410 ml 410 ml Output Total 0 ml 0 ml 20 ml Balance 240 ml 410 ml 390 ml Intake Oral 240 ml 360 ml 360 ml IV Total 50 ml 50 ml Output Urine Total 0 ml 0 ml 20 ml # Bowel Movements 3 0 Physical Exam Awake Tele AF with RVR. BP 90's No JVD Chest clear ant. CV S1S2 irr irr, tachy, 3/6 severe murmur Abd soft Ext 1+ edema Laboratory Laboratory Tests Test 05/22/17 05:30 Prothrombin Time 21.0 SEC Prothromb Time International Ratio 2.1 RATIO Assessment and Plan Problem List: (1) Aortic valvar stenosis ICD Codes: I35.0 - Nonrheumatic aortic (valve) stenosis (2) ESRD (end stage renal disease) on dialysis ICD Codes: N18.6 - End stage renal disease; Z99.2 - Dependence on renal dialysis (3) Atrial fibrillation ICD Codes: I48.91 - Unspecified atrial fibrillation Plan: Rate uncontrolled. Add amio. (4) Diabetes mellitus ICD Codes: E11.9 - Diabetes mellitus Status: Chronic (5) Hypotension ICD Codes: I95.9 - Hypotension, unspecified Status: Acute (6) End stage renal disease on dialysis ICD Codes: N18.6 - End stage renal disease on dialysis; Z99.2 - Dependence on renal dialysis Status: Acute (7) CAD (coronary artery disease) ICD Codes: I25.10 - Atherosclerotic heart disease of [place] coronary artery without angina pectoris Problem Qualifiers (1) Atrial fibrillation: Qualified Codes: I48.91 - Unspecified atrial fibrillation Gregg Salter MD May 22, 2017 14:02
[2017-05-22] MEDS: WARFARIN SOD 1 MG TAB PO SCH (16:00)
[2017-05-22] MEDS: GELATIN 12 MM/7 MM FOAM TOP PRN (17:13)
[2017-05-22] MEDS: AMIODARONE 200 MG TAB PO SCH (18:22)
[2017-05-22] MEDS: SODIUM CHLORIDE 0.9% FLUSH 10 ML FLUSH IV FLUSH SCH (21:09)
[2017-05-23] VITALS (34 sets, daily range): BP systolic 87–113; BP diastolic 56–77; PULSE 109–125; RESP 13–23; TEMP 98–98.9; O2SAT 88–100
[2017-05-23] MEDS: DILTIAZEM HCL 60 MG TAB PO SCH ×4 (03:12→20:04)
[2017-05-23] MEDS: metroNIDAZOLE 500 MG TAB PO SCH (05:03)
[2017-05-23] MEDS: METOPROLOL TARTRATE 25 MG TAB PO SCH ×4 (05:03→23:18)
[2017-05-23 06:01] LABS: HEMATOCRIT 34.5 % (39.0-51.0); HEMOGLOBIN 11.2 GM/DL (13.0-17.0); MEAN CELL VOLUME 102.8 FL (80.0-100.0); MEAN CORPUSCULAR HEMOGLOBIN 33.4 PG (27.0-34.0); MEAN CORPUSCULAR HGB CONC 32.5 % (32.0-36.0); MEAN PLATELET VOLUME 9.3 FL (7.0-11.0); PLATELET COUNT 178 TH/MM3 (150-450); RED BLOOD COUNT 3.35 MIL/MM3 (4.50-5.90); RED CELL DISTRIBUTION WIDTH 17.4 % (11.6-17.2); WHITE BLOOD COUNT 8.2 TH/MM3 (4.0-11.0)
[2017-05-23 06:14] LABS: INTERNATIONAL NORMALIZED RATIO 1.8 RATIO; PROTHROMBIN TIME - PATIENT 17.8 SEC (9.8-11.6)
[2017-05-23 06:27] LABS: ALBUMIN 2.6 GM/DL (3.4-5.0); AST (GOT) 12 U/L (15-37); BLOOD UREA NITROGEN 31 MG/DL (7-18); CALCIUM 8.6 MG/DL (8.5-10.1); CHLORIDE 98 MEQ/L (98-107); CREATININE 4.33 MG/DL (0.60-1.30); GLOMERULAR FILTRATION RATE 13 ML/MIN (>89); GLUCOSE,RANDOM 138 MG/DL (74-106); SODIUM (NA) 139 MEQ/L (136-145)
[2017-05-23 06:43] LABS: ALKALINE PHOSPHATASE 78 U/L (45-117); ALT (GPT) 15 U/L (12-78); DIGOXIN 0.8 NG/ML (0.8-2.0); TOTAL BILIRUBIN ADULT 0.6 MG/DL (0.2-1.0)
[2017-05-23] MEDS: SEVELAMER CARBONATE 800 MG TAB PO SCH ×3 (08:05→18:54)
[2017-05-23] MEDS: DIGOXIN 0.125 MG TAB PO SCH (08:05)
[2017-05-23] MEDS: PIPERACIL-TAZO 2.25 GM PREMIX 50 ML IV SCH (08:06)
[2017-05-23] MEDS: AMIODARONE 200 MG TAB PO SCH ×3 (08:06→18:58)
[2017-05-23] MEDS: ALLOPURINOL 100 MG TAB PO SCH (08:06)
[2017-05-23] MEDS: CINACALCET HYDROCHLORIDE 30 MG TAB PO SCH (08:06)
[2017-05-23] MEDS: ASPIRIN 81 MG CHEW TAB CHEW SCH (08:06)
[2017-05-23] MEDS: ACETAMINOPHEN/HYDROcodone 325 MG/5 MG TAB PO PRN ×3 (08:28→23:25)
[2017-05-23] MEDS: CHLORHEXIDINE GLUCONATE 0.12% 15 ML CUP SWISH-SPIT SCH ×3 (09:00→18:00)
--- NOTE | 2017-05-23 09:09 | HHI.PR ---
Subjective Remarks Heart rate is 120. Amiodarone increased. Feels sleepy. 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 No nausea or vomiting diarrhea or constipation. Had dialysis yesterday. No lightheadedness. Feels very weak. We will add OT for evaluation. Move out of ICU when bed available. Objective Vitals Vital Signs Date Time Temp Pulse Resp B/P (MAP) Pulse Ox O2 Delivery O2 Flow Rate FiO2 05/23/17 08:49 98 Nasal Cannula 2.00 05/23/17 06:00 124 05/23/17 04:00 98.6 124 19 103/59 (74) 96 05/23/17 04:00 124 05/23/17 02:00 120 05/23/17 00:00 117 05/23/17 00:00 98.5 117 17 87/61 (70) 95 05/22/17 22:00 123 05/22/17 20:20 97 Nasal Cannula 2.00 05/22/17 20:00 95 Nasal Cannula 3.00 05/22/17 20:00 123 05/22/17 20:00 98.2 123 18 101/77 (85) 98 05/22/17 18:00 127 05/22/17 16:00 115 15 98/56 (70) 98 05/22/17 16:00 112 05/22/17 14:00 122 15 98/56 (70) 98 05/22/17 14:00 112 05/22/17 13:30 121 18 98 05/22/17 13:00 120 17 96 05/22/17 12:30 117 17 98 05/22/17 12:00 98.0 121 18 98/56 (70) 99 05/22/17 12:00 119 15 93/57 (69) 100 05/22/17 12:00 112 05/22/17 10:00 112 I/O 05/22/17 05/22/17 05/22/17 05/23/17 05/23/17 05/23/17 07:00 15:00 23:00 07:00 15:00 23:00 Intake Total 410 ml 300 ml Output Total 20 ml 1000 ml Balance 390 ml -1000 ml 300 ml Intake Oral 360 ml 300 ml IV Total 50 ml Output Urine Total 20 ml Hemodialysis 1000 ml # Bowel Movements 0 2 Result Diagram: 05/23/17 0500 05/23/17 0500 Imaging Last Impressions Chest X-Ray 05/18/17 0600 Signed Impressions: Service Date/Time: Thursday, May 18, 2017 03:32 - CONCLUSION: No significant change has occurred. Damien Pierson MD Objective Remarks GENERAL: This is a elderly gentleman, appears critically ill CARDIOVASCULAR: Irregularly irregular, crescendo decrescendo murmur at LSB, hypotensive RESPIRATORY: Air entry equal bilaterally. No wheezes GASTROINTESTINAL: Abdomen soft, non-tender, nondistended. No hepato-splenomegaly MUSCULOSKELETAL: Extremities without clubbing, cyanosis. 1+ pitting edema. Left fore arm fistula in place NEUROLOGICAL: Awake and alert. Motor and sensory grossly within normal limits. Follows commands normal speech A/P Assessment and Plan Atrial fibrillation with RVR Hypotension Congestive heart failure Elevated troponin Probable sepsis Coagulopathy secondary to Coumadin/supratherapeutic INR Severe aortic stenosis (peak 94, mean 55, NATA 0.5) Bilateral pleural effusion secondary to CHF CAD with LAD lesion End-stage renal disease on hemodialysis Recent history of C. difficile colitis Diabetes Hypertension Chronic atrial fibrillation Pressure wound sacral. Wound care following. Has some pain added norco bid prn say sis helps a lot. Cleanse wound to L side of coccyx with normal saline and pat dry and apply Maxorb II to wound bed only loosely packed. Apply skin prep to periwound and cover with bordered gauze. Change dressing every 2 days or PRN if saturated or dislodged. Apply bilateral heel boots. Turn patient every 2 hours and PRN for comfort and offloading pressure from ju prominences. PLAN: NEURO: -Minimize all sedation -Encephalopathy most likely metabolic, improving RESP: -Nasal cannula oxygen. Keep oxygen saturation above 90% -DuoNeb every 6 hours as needed -Bilateral pleural effusion secondary to CHF, continue fluid removal with dialysis -Repeat chest x-ray CV: -Was on Yosef-Synephrine, DCd -Cardizem PO 60 mg every 6 -Amiodarone increased to 400 mg po TID per cardiology -Daily digoxin started by cardiology changed to q. other day 2/2 ESRD -Coumadin held due to supra therapeutic INR. Pharmacy to dose coumadin -Aspirin 81 mg daily -No beta-blockers due to hypotension -Cardiology Dr. Ortiz -Per CTS Dr. Nielson, may need balloon valvuloplasty for severe aortic stenosis, once more stable. PCI/TAVR later-see Dr. Ortiz's note -Need his teeth extracted prior to any surgical intervention (Dr. Santiago recommended OP appointment) GI: -Renal diet, IV famotidine : -End-stage renal disease on hemodialysis -Nephrology Dr. Mayers ID: -IV vancomycin, IV Zosyn, p.o. Flagyl, DC vanc -Follow-up on cultures influenza negative, check C. difficile if diarrhea persists. All cultures negative today HEME: -Monitor CBC, CMP, INR -Coumadin on hold due to subtherapeutic INR, pharmacy to dose Coumadin ENDO: -Monitor electrolytes closely PROPH: -Bilateral lower extremity SCDs. INR 2.1. IV famotidine LINES: - RIJ central line placed 05/15/17 Transfer to [facility] DC plan: DC when arrangements are done. DC to SNF to follow up as OP with Dr Santiago FS for teeth extraction prior to PCI/TAVR. Bailey Kim MD May 23, 2017 09:09
[2017-05-23] MEDS ORDERED: ACETAMINOPHEN/HYDROcodone 325 MG/5 MG TAB PO ONE (11:00)
--- NOTE | 2017-05-23 11:59 | HHI.NPPN ---
Subjective History of Present Illness 76-year-old male known to me from before with past medical history of hypertension, diabetes mellitus, hyperlipidemia, severe aortic stenosis, atrial fibrillation, chronic anemia, who was recently discharged from the hospital and brought back because of hypotension from the dialysis. The patient has been on regular dialysis Wednesday, and Wednesday. Additional Remarks Patient is sleeping, no SOB, Review of Systems Respiratory Respiratory Remarks Denies sob Gastrointestinal GI Remarks No abdominal pain Musculoskeletal MS: Pain/Stiffness MS Remarks back Objective Data Data Vital Signs Date Time Temp Pulse Resp B/P (MAP) Pulse Ox O2 Delivery O2 Flow Rate FiO2 05/23/17 08:49 98 Nasal Cannula 2.00 05/23/17 08:00 95 Nasal Cannula 3.00 05/23/17 08:00 123 05/23/17 08:00 98.2 123 18 101/77 (85) 98 05/23/17 06:00 124 05/23/17 04:00 98.6 124 19 103/59 (74) 96 05/23/17 04:00 124 05/23/17 02:00 120 05/23/17 00:00 117 05/23/17 00:00 98.5 117 17 87/61 (70) 95 05/22/17 22:00 123 05/22/17 20:20 97 Nasal Cannula 2.00 05/22/17 20:00 95 Nasal Cannula 3.00 05/22/17 20:00 123 05/22/17 20:00 98.2 123 18 101/77 (85) 98 05/22/17 18:00 127 05/22/17 16:00 115 15 98/56 (70) 98 05/22/17 16:00 112 05/22/17 14:00 122 15 98/56 (70) 98 05/22/17 14:00 112 05/22/17 13:30 121 18 98 05/22/17 13:00 120 17 96 05/22/17 12:30 117 17 98 05/22/17 12:00 98.0 121 18 98/56 (70) 99 05/22/17 12:00 119 15 93/57 (69) 100 05/22/17 12:00 112 -: 05/23/17 0500 05/23/17 0500 Physical Exam General Appearance: No Acute Distress, Comfortable Eyes Eye Exam: Pupils Equal Pulmonary Resp Exam: Breath Sounds Equal, No Distress, Decreased Bases, Diminished Breath Sounds Cardiology CV Exam: Irregular, Arrhythmia, Tachycardia Gastrointestinal/Abdomen GI Exam: Soft, Non-Tender, Bowel Sounds Present Extremeties Extremities Exam: Trace Edema Neurologic Neuro Exam: Alert, Awake Psychiatric Psych Exam: Appropriate Responses Assessment/Plan Assessment Summary: Hypotension, End Stage Renal Disease Problem List: (1) ESRD (end stage renal disease) on dialysis ICD Codes: N18.6 - End stage renal disease; Z99.2 - Dependence on renal dialysis Plan: Patient is on hemodialysis has severe aortic stenosis, congestive heart failure, left forearm AV fistula Hemodialysis is supposed to be done today He continued to feel weak and has severe aortic stenosis with atrial fibrillation Prognosis is guarded HD yesterday Dr. Mayers to follow (2) Aortic valvar stenosis ICD Codes: I35.0 - Nonrheumatic aortic (valve) stenosis (3) Atrial fibrillation ICD Codes: I48.91 - Unspecified atrial fibrillation (4) Diabetes mellitus ICD Codes: E11.9 - Diabetes mellitus Status: Chronic (5) Hypotension ICD Codes: I95.9 - Hypotension, unspecified Status: Acute Problem Qualifiers (1) Atrial fibrillation: Qualified Codes: I48.91 - Unspecified atrial fibrillation Jose Martin Guerrier MD May 23, 2017 11:59
--- NOTE | 2017-05-23 13:04 | PD.CARD.PN ---
Subjective Subjective Remarks No complaints. No pain Objective Medications Current Medications Medications (Trade) Dose Ordered Sig/Jamal Route Start Time Stop Time Status Last Admin (NS Flush) 2 ml UNSCH PRN IV FLUSH 05/13/17 19:45 (NS Flush) 2 ml BID IV FLUSH 05/13/17 21:00 05/22/17 21:09 (Narcan Inj) 0.4 mg UNSCH PRN IV PUSH 05/13/17 19:45 (Zyloprim) 100 mg DAILY PO 05/14/17 09:00 05/23/17 08:06 (Sensipar) 30 mg DAILY PO 05/14/17 09:00 05/23/17 08:06 (Renvela) 2,400 mg TID PO 05/14/17 09:00 05/23/17 08:05 Miscellaneous Information Patient in critical care unit? Ass... Q361D .XX 05/14/17 05:30 (Aspirin Chew) 81 mg DAILY CHEW 05/14/17 09:00 05/23/17 08:06 (Brethine Inj) 1 mg UNSCH PRN SQ 05/14/17 08:00 Sodium Chloride 1,000 ml @ 0 mls/hr Q0M PRN OTHER 05/14/17 11:21 (Heparin Inj) 8,000 units UNSCH PRN IV FLUSH 05/14/17 11:30 Sodium Chloride 1,000 ml @ 200 mls/hr Q5H PRN IV 05/14/17 11:21 05/22/17 17:12 Sodium Chloride 1,000 ml @ 0 mls/hr Q0M PRN OTHER 05/14/17 11:21 (Mannitol Inj) 12.5 gm UNSCH PRN IV 05/14/17 11:30 Albumin Human 100 ml @ 60 mls/hr UNSCH PRN IV 05/14/17 11:30 05/15/17 09:38 (NS Flush) 5 ml UNSCH PRN IV FLUSH 05/14/17 11:30 (Heparin Inj) UNSCH PRN .XX 05/14/17 11:30 (Gentamicin Inj) 20 mg UNSCH PRN OTHER 05/14/17 11:30 (Zofran Inj) 4 mg UNSCH PRN IV PUSH 05/14/17 11:30 (Tylenol) 650 mg UNSCH PRN PO 05/14/17 11:30 05/21/17 00:52 (Benadryl) 25 mg UNSCH PRN PO 05/14/17 11:30 (Nitrostat Sl) 0.4 mg UNSCH PRN SL 05/14/17 11:30 (Catapres) 0.1 mg UNSCH PRN PO 05/14/17 11:30 (Gelfoam 12 Mm/7 Mm Top) 1 foam UNSCH PRN TOP 05/14/17 11:30 05/22/17 17:13 Pharmacy Profile Note 0 ml @ 0 mls/hr UNSCH OTHER 05/15/17 07:45 (Duoneb Neb) 1 ampule Q4HR NEB PRN NEB 05/15/17 07:45 (Cardizem) 60 mg Q6H PO 05/16/17 14:00 05/23/17 08:06 (Peridex 0.12% Liq) 15 ml TID SWISH-SPIT 05/16/17 13:00 05/22/17 18:00 (Lanoxin) 0.125 mg Q48H PO 05/19/17 09:00 05/23/17 08:05 (Pill Splitter) 1 ea UNSCH PRN OTHER 05/19/17 15:00 (Coumadin) 0.5 mg Q48H PO 05/22/17 16:00 (Lopressor) 12.5 mg Q6HR PO 05/21/17 18:00 05/23/17 10:57 (Cordarone) 400 mg TIDPC PO 05/22/17 18:30 05/23/17 08:06 ([place] 5-325 Mg) 1 tab Q6HR PRN PO 05/23/17 11:00 Vital Signs / I&O Vital Signs Date Time Temp Pulse Resp B/P (MAP) Pulse Ox O2 Delivery O2 Flow Rate FiO2 05/23/17 08:49 98 Nasal Cannula 2.00 05/23/17 08:00 95 Nasal Cannula 3.00 05/23/17 08:00 123 05/23/17 08:00 98.2 123 18 101/77 (85) 98 05/23/17 06:00 124 05/23/17 04:00 98.6 124 19 103/59 (74) 96 05/23/17 04:00 124 05/23/17 02:00 120 05/23/17 00:00 117 05/23/17 00:00 98.5 117 17 87/61 (70) 95 05/22/17 22:00 123 05/22/17 20:20 97 Nasal Cannula 2.00 05/22/17 20:00 95 Nasal Cannula 3.00 05/22/17 20:00 123 05/22/17 20:00 98.2 123 18 101/77 (85) 98 05/22/17 18:00 127 05/22/17 16:00 115 15 98/56 (70) 98 05/22/17 16:00 112 05/22/17 14:00 122 15 98/56 (70) 98 05/22/17 14:00 112 05/22/17 13:30 121 18 98 I/O 05/22/17 05/22/17 05/22/17 05/23/17 05/23/17 05/23/17 07:00 15:00 23:00 07:00 15:00 23:00 Intake Total 410 ml 300 ml Output Total 20 ml 1000 ml Balance 390 ml -1000 ml 300 ml Intake Oral 360 ml 300 ml IV Total 50 ml Output Urine Total 20 ml Hemodialysis 1000 ml # Bowel Movements 0 2 Physical Exam Awake Tele AF with RVR 1110-120. BP 90's No JVD Chest clear ant. CV S1S2 irr irr, tachy, 3/6 severe murmur Abd soft Ext 1+ edema Laboratory Laboratory Tests Test 05/23/17 05:00 White Blood Count 8.2 TH/MM3 Red Blood Count 3.35 MIL/MM3 Hemoglobin 11.2 GM/DL Hematocrit 34.5 % Mean Corpuscular Volume 102.8 FL Mean Corpuscular Hemoglobin 33.4 PG Mean Corpuscular Hemoglobin Concent 32.5 % Red Cell Distribution Width 17.4 % Platelet Count 178 TH/MM3 Mean Platelet Volume 9.3 FL Prothrombin Time 17.8 SEC Prothromb Time International Ratio 1.8 RATIO Blood Urea Nitrogen 31 MG/DL Creatinine 4.33 MG/DL Random Glucose 138 MG/DL Total Protein 6.0 GM/DL Albumin 2.6 GM/DL Calcium Level 8.6 MG/DL Alkaline Phosphatase 78 U/L Aspartate Amino Transf (AST/SGOT) 12 U/L Alanine Aminotransferase (ALT/SGPT) 15 U/L Total Bilirubin 0.6 MG/DL Sodium Level 139 MEQ/L Potassium Level 3.7 MEQ/L Chloride Level 98 MEQ/L Carbon Dioxide Level 35.0 MEQ/L Anion Gap 6 MEQ/L Estimat Glomerular Filtration Rate 13 ML/MIN Digoxin Level 0.8 NG/ML Assessment and Plan Problem List: (1) Aortic valvar stenosis ICD Codes: I35.0 - Nonrheumatic aortic (valve) stenosis (2) ESRD (end stage renal disease) on dialysis ICD Codes: N18.6 - End stage renal disease; Z99.2 - Dependence on renal dialysis (3) Atrial fibrillation ICD Codes: I48.91 - Unspecified atrial fibrillation Plan: Amio added. Dig level OK. Rate still up. (4) Diabetes mellitus ICD Codes: E11.9 - Diabetes mellitus Status: Chronic (5) Hypotension ICD Codes: I95.9 - Hypotension, unspecified Status: Acute (6) End stage renal disease on dialysis ICD Codes: N18.6 - End stage renal disease on dialysis; Z99.2 - Dependence on renal dialysis Status: Acute (7) CAD (coronary artery disease) ICD Codes: I25.10 - Atherosclerotic heart disease of [place] coronary artery without angina pectoris Problem Qualifiers (1) Atrial fibrillation: Qualified Codes: I48.91 - Unspecified atrial fibrillation Gregg Salter MD May 23, 2017 13:04
[2017-05-23] MEDS: WARFARIN SOD 1 MG TAB PO SCH (19:01)
[2017-05-23] MEDS: SODIUM CHLORIDE 0.9% FLUSH 10 ML FLUSH IV FLUSH SCH (20:04)
[2017-05-24] VITALS (20 sets, daily range): BP systolic 99–149; BP diastolic 57–66; PULSE 91–110; RESP 14–52; TEMP 97.8–98.7; O2SAT 88–100
[2017-05-24] MEDS: DILTIAZEM HCL 60 MG TAB PO SCH ×4 (01:56→19:56)
[2017-05-24] MEDS: METOPROLOL TARTRATE 25 MG TAB PO SCH ×4 (05:01→23:50)
[2017-05-24 05:19] LABS: BASOPHIL # 0.1 TH/MM3 (0-0.2); BASOPHIL % 1.1 % (0.0-2.0); EOSINOPHIL # 0.1 TH/MM3 (0-0.4); EOSINOPHIL % 1.4 % (0.0-4.0); HEMATOCRIT 33.1 % (39.0-51.0); HEMOGLOBIN 10.9 GM/DL (13.0-17.0); LYMPH % 9.9 % (9.0-44.0); LYMPHOCYTE # 0.9 TH/MM3 (1.0-4.8); MEAN CELL VOLUME 102.1 FL (80.0-100.0); MEAN CORPUSCULAR HEMOGLOBIN 33.6 PG (27.0-34.0); MEAN CORPUSCULAR HGB CONC 32.9 % (32.0-36.0); MEAN PLATELET VOLUME 8.7 FL (7.0-11.0); MONO % 8.1 % (0.0-8.0); MONOCYTE # 0.7 TH/MM3 (0-0.9); NEUT % 79.5 % (16.0-70.0); PLATELET COUNT 178 TH/MM3 (150-450); RED BLOOD COUNT 3.24 MIL/MM3 (4.50-5.90); RED CELL DISTRIBUTION WIDTH 17.3 % (11.6-17.2); WHITE BLOOD COUNT 8.8 TH/MM3 (4.0-11.0)
[2017-05-24 05:28] LABS: INTERNATIONAL NORMALIZED RATIO 1.5 RATIO; PROTHROMBIN TIME - PATIENT 15.5 SEC (9.8-11.6)
[2017-05-24 05:49] LABS: BICARBONATE 34.1 MEQ/L (21.0-32.0); CALCIUM 8.7 MG/DL (8.5-10.1); CREATININE 5.07 MG/DL (0.60-1.30)
[2017-05-24] MEDS: CINACALCET HYDROCHLORIDE 30 MG TAB PO SCH (08:00)
[2017-05-24] MEDS: SEVELAMER CARBONATE 800 MG TAB PO SCH ×4 (08:00→17:48)
[2017-05-24] MEDS: ALLOPURINOL 100 MG TAB PO SCH (08:01)
[2017-05-24] MEDS: ASPIRIN 81 MG CHEW TAB CHEW SCH (08:01)
[2017-05-24] MEDS: AMIODARONE 200 MG TAB PO SCH ×4 (08:01→17:48)
[2017-05-24] MEDS: ACETAMINOPHEN/HYDROcodone 325 MG/5 MG TAB PO PRN ×2 (08:05→15:19)
[2017-05-24] MEDS: CHLORHEXIDINE GLUCONATE 0.12% 15 ML CUP SWISH-SPIT SCH ×4 (09:00→17:49)
--- NOTE | 2017-05-24 12:07 | HHI.PR ---
Subjective Remarks Seen earlier today. The patient is in bed he complains of some pain in his back. Heart rate 105. No cough, shortness of breath. No nausea vomiting no diarrhea or constipation. Has no fevers. Objective Vitals Vital Signs Date Time Temp Pulse Resp B/P (MAP) Pulse Ox O2 Delivery O2 Flow Rate FiO2 05/24/17 07:18 95 Nasal Cannula 2.00 05/24/17 06:00 102 05/24/17 04:00 105 05/24/17 04:00 97.8 105 14 112/65 (81) 100 05/24/17 02:00 102 05/24/17 00:00 108 05/24/17 00:00 98.7 108 15 113/66 (82) 96 05/23/17 22:00 112 05/23/17 20:23 98 Nasal Cannula 2.00 05/23/17 20:00 109 05/23/17 20:00 97 Nasal Cannula 3.00 05/23/17 20:00 98.9 109 15 103/71 (82) 97 05/23/17 18:00 123 05/23/17 17:00 114 21 96 18 16:45 114 23 97 18 16:30 116 22 97 18 16:15 114 21 99 18 16:00 123 18 16:00 112 13 100/68 (79) 99 18 15:45 112 15 99 18 15:30 115 13 99 18 15:15 114 15 99 18 15:00 114 15 98 18 14:45 110 14 98 18 14:30 112 15 98 1818 14:00 117 22 89/56 (67) 98 18 14:00 123 18 13:30 119 15 100 1818 13:00 120 14 99 18/18 12:30 120 15 99 I/O 05/23/18 2/18/18 2/18/18 2//18 2//18 18 07:00 15:00 23:00 07:00 15:00 23:00 Intake Total 300 ml 520 ml 240 ml Output Total 25 ml Balance 300 ml 495 ml 240 ml Intake Oral 300 ml 320 ml 240 ml IV Total 200 ml Output Urine Total 25 ml # Bowel Movements 2 2 1 Result Diagram: 05/24/17 0500 05/24/17 0500 Imaging Last Impressions Chest X-Ray 05/18/17 0600 Signed Impressions: Service Date/Time: Thursday, May 18, 2017 03:32 - CONCLUSION: No significant change has occurred. Damien Pierson MD Objective Remarks GENERAL: This is a elderly gentleman, appears critically ill CARDIOVASCULAR: Irregularly irregular, crescendo decrescendo murmur at LSB, hypotensive RESPIRATORY: Air entry equal bilaterally. No wheezes GASTROINTESTINAL: Abdomen soft, non-tender, nondistended. No hepato-splenomegaly MUSCULOSKELETAL: Extremities without clubbing, cyanosis. 1+ pitting edema. Left fore arm fistula in place NEUROLOGICAL: Awake and alert. Motor and sensory grossly within normal limits. Follows commands normal speech A/P Assessment and Plan Atrial fibrillation with RVR Hypotension Congestive heart failure Elevated troponin Probable sepsis Coagulopathy secondary to Coumadin/supratherapeutic INR Severe aortic stenosis (peak 94, mean 55, NATA 0.5) Bilateral pleural effusion secondary to CHF CAD with LAD lesion End-stage renal disease on hemodialysis Recent history of C. difficile colitis Diabetes Hypertension Chronic atrial fibrillation Pressure wound sacral. Wound care following. Has pain norco q4 hrs prn as with pain. Cleanse wound to L side of coccyx with normal saline and pat dry and apply Maxorb II to wound bed only loosely packed. Apply skin prep to periwound and cover with bordered gauze. Change dressing every 2 days or PRN if saturated or dislodged. Apply bilateral heel boots. Turn patient every 2 hours and PRN for comfort and offloading pressure from ju prominences. PLAN: NEURO: -Minimize all sedation -Encephalopathy most likely metabolic, improving RESP: -Nasal cannula oxygen. Keep oxygen saturation above 90% -DuoNeb every 6 hours as needed -Bilateral pleural effusion secondary to CHF, continue fluid removal with dialysis -Repeat chest x-ray CV: -Was on Yosef-Synephrine, DCd -Cardizem PO 60 mg every 6 -Amiodarone increased to 400 mg po TID per cardiology -Daily digoxin started by cardiology changed to q. other day 2/2 ESRD -Coumadin held due to supra therapeutic INR. Pharmacy to dose coumadin -Aspirin 81 mg daily -No beta-blockers due to hypotension -Cardiology Dr. Ortiz -Per CTS Dr. Nielson, may need balloon valvuloplasty for severe aortic stenosis, once more stable. PCI/TAVR later-see Dr. Ortiz's note -Need his teeth extracted prior to any surgical intervention (Dr. Santiago recommended OP appointment) GI: -Renal diet, IV famotidine : -End-stage renal disease on hemodialysis -Nephrology Dr. Mayers ID: -Dc antibiotics IV vancomycin, IV Zosyn, p.o. Flagyl -Follow-up on cultures influenza negative, check C. difficile if diarrhea persists. All cultures negative. HEME: -Monitor CBC, CMP, INR -Coumadin on hold due to subtherapeutic INR, pharmacy to dose Coumadin ENDO: -Monitor electrolytes closely PROPH: -Bilateral lower extremity SCDs. INR 2.1. IV famotidine LINES: - RIJ central line placed 05/15/17 Transfer to [facility] DC plan: DC when arrangements are done. DC to SNF to follow up as OP with Dr Santiago [facility] for teeth extraction prior to PCI/TAVR. Bailey Kim MD May 24, 2017 12:07
--- NOTE | 2017-05-24 12:25 | PD.CARD.PN ---
Subjective Subjective Remarks No chest pain/SOB Heart rates now 90-105 Objective Medications Current Medications Medications (Trade) Dose Ordered Sig/Jamal Route Start Time Stop Time Status Last Admin (NS Flush) 2 ml UNSCH PRN IV FLUSH 05/13/17 19:45 (NS Flush) 2 ml BID IV FLUSH 05/13/17 21:00 05/23/17 20:04 (Narcan Inj) 0.4 mg UNSCH PRN IV PUSH 05/13/17 19:45 (Zyloprim) 100 mg DAILY PO 05/14/17 09:00 05/24/17 08:01 (Sensipar) 30 mg DAILY PO 05/14/17 09:00 05/24/17 08:00 (Renvela) 2,400 mg TID PO 05/14/17 09:00 05/24/17 08:00 Miscellaneous Information Patient in critical care unit? Ass... Q361D .XX 05/14/17 05:30 (Aspirin Chew) 81 mg DAILY CHEW 05/14/17 09:00 05/24/17 08:01 (Brethine Inj) 1 mg UNSCH PRN SQ 05/14/17 08:00 Sodium Chloride 1,000 ml @ 0 mls/hr Q0M PRN OTHER 05/14/17 11:21 (Heparin Inj) 8,000 units UNSCH PRN IV FLUSH 05/14/17 11:30 Sodium Chloride 1,000 ml @ 200 mls/hr Q5H PRN IV 05/14/17 11:21 05/22/17 17:12 Sodium Chloride 1,000 ml @ 0 mls/hr Q0M PRN OTHER 05/14/17 11:21 (Mannitol Inj) 12.5 gm UNSCH PRN IV 05/14/17 11:30 Albumin Human 100 ml @ 60 mls/hr UNSCH PRN IV 05/14/17 11:30 05/15/17 09:38 (NS Flush) 5 ml UNSCH PRN IV FLUSH 05/14/17 11:30 (Heparin Inj) UNSCH PRN .XX 05/14/17 11:30 (Gentamicin Inj) 20 mg UNSCH PRN OTHER 05/14/17 11:30 (Zofran Inj) 4 mg UNSCH PRN IV PUSH 05/14/17 11:30 (Tylenol) 650 mg UNSCH PRN PO 05/14/17 11:30 05/21/17 00:52 (Benadryl) 25 mg UNSCH PRN PO 05/14/17 11:30 (Nitrostat Sl) 0.4 mg UNSCH PRN SL 05/14/17 11:30 (Catapres) 0.1 mg UNSCH PRN PO 05/14/17 11:30 (Gelfoam 12 Mm/7 Mm Top) 1 foam UNSCH PRN TOP 05/14/17 11:30 05/22/17 17:13 Pharmacy Profile Note 0 ml @ 0 mls/hr UNSCH OTHER 05/15/17 07:45 (Duoneb Neb) 1 ampule Q4HR NEB PRN NEB 05/15/17 07:45 (Cardizem) 60 mg Q6H PO 05/16/17 14:00 05/24/17 08:01 (Peridex 0.12% Liq) 15 ml TID SWISH-SPIT 05/16/17 13:00 05/23/17 09:00 (Lanoxin) 0.125 mg Q48H PO 05/19/17 09:00 05/23/17 08:05 (Pill Splitter) 1 ea UNSCH PRN OTHER 05/19/17 15:00 (Lopressor) 12.5 mg Q6HR PO 05/21/17 18:00 05/24/17 05:01 (Cordarone) 400 mg TIDPC PO 05/22/17 18:30 05/24/17 08:01 (Coumadin) 1 mg Q48H PO 05/24/17 16:00 ([place] 5-325 Mg) 1 tab Q4HR PRN PO 05/24/17 12:15 UNV Vital Signs / I&O Vital Signs Date Time Temp Pulse Resp B/P (MAP) Pulse Ox O2 Delivery O2 Flow Rate FiO2 05/24/17 07:18 95 Nasal Cannula 2.00 05/24/17 06:00 102 05/24/17 04:00 105 05/24/17 04:00 97.8 105 14 112/65 (81) 100 05/24/17 02:00 102 05/24/17 00:00 108 05/24/17 00:00 98.7 108 15 113/66 (82) 96 2/18/18 22:00 112 2/18/18 20:23 98 Nasal Cannula 2.00 2/18/18 20:00 109 2/18/18 20:00 97 Nasal Cannula 3.00 218/18 20:00 98.9 109 15 103/71 (82) 97 2/18/18 18:00 123 2/18/18 17:00 114 21 96 2/18/18 16:45 114 23 97 2/18/18 16:30 116 22 97 2/18/18 16:15 114 21 99 2/18/18 16:00 123 2/18/18 16:00 112 13 100/68 (79) 99 2/18/18 15:45 112 15 99 2/18/18 15:30 115 13 99 2/18/18 15:15 114 15 99 2/18/18 15:00 114 15 98 2/18/18 14:45 110 14 98 2/18/18 14:30 112 15 98 2/18/18 14:00 117 22 89/56 (67) 98 218/18 14:00 123 2/18/18 13:30 119 15 100 2/18/18 13:00 120 14 99 2/18/18 12:30 120 15 99 I/O 2/18/18 2/18/18 2/18/18 2/19/18 2/19/18 2/19/18 07:00 15:00 23:00 07:00 15:00 23:00 Intake Total 300 ml 520 ml 240 ml Output Total 25 ml Balance 300 ml 495 ml 240 ml Intake Oral 300 ml 320 ml 240 ml IV Total 200 ml Output Urine Total 25 ml # Bowel Movements 2 2 1 Physical Exam GENERAL: NAD, AAOx3 SKIN: Warm and dry. HEAD: Atraumatic. Normocephalic. EYES: Pupils equal and round. No scleral icterus. No injection or drainage. ENT: No nasal bleeding or discharge. Mucous membranes pink and moist. NECK: Trachea midline. No JVD. CARDIOVASCULAR: Irregularly irregular, 3/6 crescendo-decrescendo murmur to the RSB RESPIRATORY: No accessory muscle use. Clear to auscultation. Breath sounds equal bilaterally. GASTROINTESTINAL: Abdomen soft, non-tender, nondistended. Hepatic and splenic margins not palpable. MUSCULOSKELETAL: Extremities without clubbing, cyanosis, or edema. No obvious deformities. NEUROLOGICAL: Awake and alert. No obvious cranial nerve deficits. Motor grossly within normal limits. Five out of 5 muscle strength in the arms and legs. Normal speech. PSYCHIATRIC: Appropriate mood and affect; insight and judgment normal. Laboratory Laboratory Tests Test 05/24/17 05:00 White Blood Count 8.8 TH/MM3 Red Blood Count 3.24 MIL/MM3 Hemoglobin 10.9 GM/DL Hematocrit 33.1 % Mean Corpuscular Volume 102.1 FL Mean Corpuscular Hemoglobin 33.6 PG Mean Corpuscular Hemoglobin Concent 32.9 % Red Cell Distribution Width 17.3 % Platelet Count 178 TH/MM3 Mean Platelet Volume 8.7 FL Neutrophils (%) (Auto) 79.5 % Lymphocytes (%) (Auto) 9.9 % Monocytes (%) (Auto) 8.1 % Eosinophils (%) (Auto) 1.4 % Basophils (%) (Auto) 1.1 % Neutrophils # (Auto) 7.0 TH/MM3 Lymphocytes # (Auto) 0.9 TH/MM3 Monocytes # (Auto) 0.7 TH/MM3 Eosinophils # (Auto) 0.1 TH/MM3 Basophils # (Auto) 0.1 TH/MM3 CBC Comment DIFF FINAL Differential Comment Prothrombin Time 15.5 SEC Prothromb Time International Ratio 1.5 RATIO Blood Urea Nitrogen 43 MG/DL Creatinine 5.07 MG/DL Random Glucose 108 MG/DL Calcium Level 8.7 MG/DL Sodium Level 139 MEQ/L Potassium Level 4.2 MEQ/L Chloride Level 98 MEQ/L Carbon Dioxide Level 34.1 MEQ/L Anion Gap 7 MEQ/L Estimat Glomerular Filtration Rate 11 ML/MIN Assessment and Plan Problem List: (1) Aortic valvar stenosis ICD Codes: I35.0 - Nonrheumatic aortic (valve) stenosis (2) ESRD (end stage renal disease) on dialysis ICD Codes: N18.6 - End stage renal disease; Z99.2 - Dependence on renal dialysis (3) Atrial fibrillation ICD Codes: I48.91 - Unspecified atrial fibrillation (4) Diabetes mellitus ICD Codes: E11.9 - Diabetes mellitus Status: Chronic (5) Hypotension ICD Codes: I95.9 - Hypotension, unspecified Status: Acute (6) End stage renal disease on dialysis ICD Codes: N18.6 - End stage renal disease on dialysis; Z99.2 - Dependence on renal dialysis Status: Acute (7) CAD (coronary artery disease) ICD Codes: I25.10 - Atherosclerotic heart disease of [place] coronary artery without angina pectoris Assessment and Plan 1) Afib Heart rates better Con't BB/CCB/Dig Started on Amiodarone load 2) Shock Most likely cardiogenic with Afib with RVR as well as his aortic stenosis 3) Overall believe his admission is based on his Afib with RVR more than anything 4) Severe Consideration of PCI with BAV, as any time he goes into RVR he's going to become shock-like, will have to see how he does Would end up being BMS of LAD as needs dental work Eventual TAVR, will need to have dental work first but having difficulty getting Oral Maxillofacial surgery saw him and wants to see outpt For now, will control heart rates for Afib and if stable get him to rehab then to Dr. Santiago for dental work If further episodes of concern then would consider PCI and BAV, as patient was on minimal medications to control Afib when he left here last admission Problem Qualifiers (1) Atrial fibrillation: Qualified Codes: I48.91 - Unspecified atrial fibrillation Jeffrey Ortiz DO May 24, 2017 12:25
[2017-05-24] MEDS: SODIUM CHLORIDE 0.9% FLUSH 10 ML FLUSH IV FLUSH SCH ×2 (12:30→19:56)
--- NOTE | 2017-05-24 14:49 | HHI.NPPN ---
Subjective History of Present Illness 76-year-old male known to me from before with past medical history of hypertension, diabetes mellitus, hyperlipidemia, severe aortic stenosis, atrial fibrillation, chronic anemia, who was recently discharged from the hospital and brought back because of hypotension from the dialysis. The patient has been on regular dialysis Wednesday, and Wednesday. Additional Remarks Patient is alert, not eating well, no nausea, no SOB. Review of Systems Respiratory Respiratory Remarks Denies sob Gastrointestinal GI Remarks No abdominal pain Musculoskeletal MS: Pain/Stiffness MS Remarks back Objective Data Data Vital Signs Date Time Temp Pulse Resp B/P (MAP) Pulse Ox O2 Delivery O2 Flow Rate FiO2 05/24/17 07:18 95 Nasal Cannula 2.00 05/24/17 06:00 102 05/24/17 04:00 105 05/24/17 04:00 97.8 105 14 112/65 (81) 100 05/24/17 02:00 102 05/24/17 00:00 108 05/24/17 00:00 98.7 108 15 113/66 (82) 96 05/23/17 22:00 112 05/23/17 20:23 98 Nasal Cannula 2.00 05/23/17 20:00 109 05/23/17 20:00 97 Nasal Cannula 3.00 05/23/17 20:00 98.9 109 15 103/71 (82) 97 05/23/17 18:00 123 05/23/17 17:00 114 21 96 05/23/17 16:45 114 23 97 05/23/17 16:30 116 22 97 05/23/17 16:15 114 21 99 05/23/17 16:00 123 05/23/17 16:00 112 13 100/68 (79) 99 05/23/17 15:45 112 15 99 05/23/17 15:30 115 13 99 05/23/17 15:15 114 15 99 05/23/17 15:00 114 15 98 -: 05/24/17 0500 05/24/17 0500 Physical Exam General Appearance: No Acute Distress, Comfortable Eyes Eye Exam: Pupils Equal Pulmonary Resp Exam: Breath Sounds Equal, No Distress, Decreased Bases, Diminished Breath Sounds Cardiology CV Exam: Irregular, Arrhythmia, Tachycardia Gastrointestinal/Abdomen GI Exam: Soft, Non-Tender, Bowel Sounds Present Extremeties Extremities Exam: Trace Edema Neurologic Neuro Exam: Alert, Awake Psychiatric Psych Exam: Appropriate Responses Assessment/Plan Assessment Summary: Hypotension, End Stage Renal Disease Problem List: (1) ESRD (end stage renal disease) on dialysis ICD Codes: N18.6 - End stage renal disease; Z99.2 - Dependence on renal dialysis Plan: Patient is on hemodialysis has severe aortic stenosis, congestive heart failure, left forearm AV fistula Hemodialysis is supposed to be done today He continued to feel weak and has severe aortic stenosis with atrial fibrillation Prognosis is guarded Encourage oral intake, discussed with the patient. HD will be in AM. BP is better today. (2) Aortic valvar stenosis ICD Codes: I35.0 - Nonrheumatic aortic (valve) stenosis (3) Atrial fibrillation ICD Codes: I48.91 - Unspecified atrial fibrillation (4) Diabetes mellitus ICD Codes: E11.9 - Diabetes mellitus Status: Chronic (5) Hypotension ICD Codes: I95.9 - Hypotension, unspecified Status: Acute Problem Qualifiers (1) Atrial fibrillation: Qualified Codes: I48.91 - Unspecified atrial fibrillation Quiana Mayers MD May 24, 2017 14:49
[2017-05-24] MEDS ORDERED: WARFARIN SOD 1 MG TAB PO SCH (16:00)
[2017-05-25] VITALS (13 sets, daily range): BP systolic 104–123; BP diastolic 53–67; PULSE 64–122; RESP 11–20; TEMP 97.3–98.6; O2SAT 95–100
[2017-05-25] MEDS: DILTIAZEM HCL 60 MG TAB PO SCH ×4 (03:00→20:12)
[2017-05-25] MEDS: METOPROLOL TARTRATE 25 MG TAB PO SCH ×3 (06:09→17:22)
[2017-05-25 07:04] LABS: PROTHROMBIN TIME - PATIENT 20.3 SEC (9.8-11.6)
[2017-05-25] MEDS ORDERED: AMIO200T PO (08:39)
[2017-05-25] MEDS: ALBUMIN 25% INJ 100 ML IV PRN ×2 (08:44→08:45)
--- NOTE | 2017-05-25 08:45 | HHI.PR ---
Subjective Remarks Seen in dialysis. Heart rate is better controlled. Pain is better controlled as well. Feels sleepy. No nausea vomiting diarrhea constipation. Denies chest pain or shortness of breath. Objective Vitals Vital Signs Date Time Temp Pulse Resp B/P (MAP) Pulse Ox O2 Delivery O2 Flow Rate FiO2 05/25/17 07:39 100 Nasal Cannula 3.00 05/25/17 06:00 77 05/25/17 04:00 64 05/25/17 04:00 98.0 64 11 110/53 (72) 100 05/25/17 02:00 90 05/25/17 00:00 97.8 102 17 123/67 (85) 100 05/25/17 00:00 102 05/24/17 22:00 98 05/24/17 20:00 98.3 91 18 113/61 (78) 96 05/24/17 20:00 91 05/24/17 20:00 100 Nasal Cannula 3.00 05/24/17 20:00 96 Nasal Cannula 3.00 05/24/17 18:00 102 20 112/66 (81) 100 05/24/17 17:00 103 37 98 05/24/17 16:00 98.0 108 31 107/65 (79) 100 05/24/17 15:00 104 17 98 05/24/17 14:00 105 20 111/57 (75) 99 05/24/17 13:00 105 16 100 05/24/17 12:00 97.8 107 32 107/66 (80) 100 05/24/17 11:00 104 51 96 05/24/17 10:01 106 44 99/58 (72) 96 05/24/17 10:00 108 52 95 05/24/17 09:00 110 28 88 I/O 05/24/17 05/24/17 05/24/17 05/25/17 05/25/17 05/25/17 07:00 15:00 23:00 07:00 15:00 23:00 Intake Total 240 ml 240 ml Output Total 0 ml Balance 240 ml 0 ml 240 ml Intake Oral 240 ml 240 ml Output Urine Total 0 ml # Bowel Movements 1 1 Result Diagram: 05/24/17 0500 05/24/17 0500 Imaging Last Impressions Chest X-Ray 05/18/17 06 Signed Impressions: Service Date/Time: Thursday, May 18, 2017 03:32 - CONCLUSION: No significant change has occurred. Damien Pierson MD Objective Remarks GENERAL: This is a elderly gentleman, appears critically ill CARDIOVASCULAR: Irregularly irregular, crescendo decrescendo murmur at LSB, hypotensive RESPIRATORY: Air entry equal bilaterally. No wheezes GASTROINTESTINAL: Abdomen soft, non-tender, nondistended. No hepato-splenomegaly MUSCULOSKELETAL: Extremities without clubbing, cyanosis. 1+ pitting edema. Left fore arm fistula in place NEUROLOGICAL: Awake and alert. Motor and sensory grossly within normal limits. Follows commands normal speech A/P Assessment and Plan Atrial fibrillation with RVR Hypotension Congestive heart failure Elevated troponin Probable sepsis Coagulopathy secondary to Coumadin/supratherapeutic INR Severe aortic stenosis (peak 94, mean 55, NATA 0.5) Bilateral pleural effusion secondary to CHF CAD with LAD lesion End-stage renal disease on hemodialysis Recent history of C. difficile colitis Diabetes Hypertension Chronic atrial fibrillation Pressure wound sacral. Wound care following. Has pain norco q4 hrs prn as with pain. Cleanse wound to L side of coccyx with normal saline and pat dry and apply Maxorb II to wound bed only loosely packed. Apply skin prep to periwound and cover with bordered gauze. Change dressing every 2 days or PRN if saturated or dislodged. Apply bilateral heel boots. Turn patient every 2 hours and PRN for comfort and offloading pressure from ju prominences. PLAN: NEURO: -Minimize all sedation -Encephalopathy most likely metabolic, improving RESP: -Nasal cannula oxygen. Keep oxygen saturation above 90% -DuoNeb every 6 hours as needed -Bilateral pleural effusion secondary to CHF, continue fluid removal with dialysis -Repeat chest x-ray CV: -Was on Yosef-Synephrine, DCd -Cardizem PO 60 mg every 6 -Amiodarone increased to 400 mg po TID per cardiology -Daily digoxin started by cardiology changed to q. other day 2/2 ESRD -Coumadin held due to supra therapeutic INR. Pharmacy to dose coumadin -Aspirin 81 mg daily -No beta-blockers due to hypotension -Cardiology Dr. Ortiz -Per CTS Dr. Nielson, may need balloon valvuloplasty for severe aortic stenosis, once more stable. PCI/TAVR later-see Dr. Ortiz's note -Need his teeth extracted prior to any surgical intervention (Dr. Santiago recommended OP appointment) GI: -Renal diet, IV famotidine : -End-stage renal disease on hemodialysis -Nephrology Dr. Mayers ID: -Dc antibiotics IV vancomycin, IV Zosyn, p.o. Flagyl -Follow-up on cultures influenza negative, check C. difficile if diarrhea persists. All cultures negative. HEME: -Monitor CBC, CMP, INR -Coumadin on hold due to subtherapeutic INR, pharmacy to dose Coumadin ENDO: -Monitor electrolytes closely PROPH: -Bilateral lower extremity SCDs. INR 2.1. IV famotidine LINES: - RIJ central line placed 05/15/17 Transfer to [facility] DC plan: DC when arrangements are done. DC to SNF to follow up as OP with Dr Santiago [facility] [place] for teeth extraction prior to PCI/TAVR. Bailey Kim MD May 25, 2017 08:44
[2017-05-25] MEDS: GELATIN 12 MM/7 MM FOAM TOP PRN (11:00)
[2017-05-25] MEDS: DIGOXIN 0.125 MG TAB PO SCH (12:38)
[2017-05-25] MEDS: SEVELAMER CARBONATE 800 MG TAB PO SCH ×3 (12:38→17:23)
[2017-05-25] MEDS: AMIODARONE 200 MG TAB PO SCH ×3 (12:39→17:23)
[2017-05-25] MEDS: CHLORHEXIDINE GLUCONATE 0.12% 15 ML CUP SWISH-SPIT SCH ×3 (12:39→17:23)
[2017-05-25] MEDS: ASPIRIN 81 MG CHEW TAB CHEW SCH (12:39)
[2017-05-25] MEDS: CINACALCET HYDROCHLORIDE 30 MG TAB PO SCH (12:42)
[2017-05-25] MEDS: ACETAMINOPHEN/HYDROcodone 325 MG/5 MG TAB PO PRN (12:42)
[2017-05-25] MEDS: SODIUM CHLORIDE 0.9% FLUSH 10 ML FLUSH IV FLUSH SCH ×2 (12:42→20:12)
[2017-05-25] MEDS: ALLOPURINOL 100 MG TAB PO SCH (12:42)
--- NOTE | 2017-05-25 15:23 | PD.WCN.NOT ---
Wound Consult Description: Follow up for pressure ulcer to sacral area. Communicated with: [facility] Recommendation: 1. Please cleanse wound to L side of coccyx with normal saline and pat dry and apply Maxorb II to wound bed only loosely packed. Apply skin prep to periwound and cover with gentle foam dressing. Change dressing every 3 days or PRN if saturated or dislodged. 2. Apply Calazime thick layer to perirectal area and bilateral buttocks. 3. Please apply bilateral heel boots. 4. Turn patient every 2 hours and PRN for comfort and offloading pressure from ju prominences. Additional Information: Patient seen on [facility] for follow up of Pressure ulcer to sacral area by manual writer and Anna CAMPA C. Patient was turned to L side with the assistance of Anna [facility] and manual writer.Patient bilateral buttocks is noted with barrier cream in place. Removed some barrier cream with normal saline and gauze pad to reveal stage 3 pressure injury to L side of coccyx. Wound measures 2.0cm x 1.4cm x 0.5cm . Periwound presents with scattered small areas of partial thickness skin loss. Wound bed presents with ~50%moist pink tissue and ~50% adipose tissue. Wound is draining minimal sero-sanguinous drainage without odor.Wound margins are well defined and wound has round shape.wound loosely pack with calcium alginate ll and covered with 7x7 sacral foam for protection.Calazime cream applied to perirectal area and bilateral buttocks Patient has bilateral buttocks blanchable dark purple area. Patient was then positioned to R side with pillow in place for support. Patient is laying on Sammi bed low air loss mattress, microclimate management is on and bed is set to proper inflation for patient's weight. T[facility] Eddy [facility] May 25, 2017 15:23
--- NOTE | 2017-05-25 16:31 | HHI.NPPN ---
Subjective History of Present Illness 76-year-old male known to me from before with past medical history of hypertension, diabetes mellitus, hyperlipidemia, severe aortic stenosis, atrial fibrillation, chronic anemia, who was recently discharged from the hospital and brought back because of hypotension from the dialysis. The patient has been on regular dialysis Wednesday, and Wednesday. Additional Remarks Patient is alert, no SOB. (Prachi Huitron) Review of Systems Respiratory Respiratory Remarks Denies sob (Prachi Huitron) Gastrointestinal GI Remarks No abdominal pain (Prachi Huitron) Musculoskeletal MS: Pain/Stiffness MS Remarks back (Prachi Huitron) Objective Data Data Vital Signs Date Time Temp Pulse Resp B/P (MAP) Pulse Ox O2 Delivery O2 Flow Rate FiO2 05/25/17 14:00 122 05/25/17 12:00 97.5 110 19 104/62 (76) 100 05/25/17 12:00 104 05/25/17 10:00 114 05/25/17 08:00 97.3 97 13 119/56 (77) 100 05/25/17 08:00 103 05/25/17 08:00 96 Nasal Cannula 3.00 05/25/17 07:39 100 Nasal Cannula 3.00 05/25/17 06:00 77 05/25/17 04:00 64 05/25/17 04:00 98.0 64 11 110/53 (72) 100 05/25/17 02:00 90 05/25/17 00:00 97.8 102 17 123/67 (85) 100 05/25/17 00:00 102 05/24/17 22:00 98 05/24/17 20:00 98.3 91 18 113/61 (78) 96 05/24/17 20:00 91 05/24/17 20:00 100 Nasal Cannula 3.00 05/24/17 20:00 96 Nasal Cannula 3.00 05/24/17 18:00 102 20 112/66 (81) 100 05/24/17 17:00 103 37 98 (Prachi Huitron) -: 05/24/17 0500 05/24/17 0500 Physical Exam General Appearance: No Acute Distress, Comfortable (Prachi Huitron) Eyes Eye Exam: Pupils Equal (Prachi Huitron) Pulmonary Resp Exam: Breath Sounds Equal, No Distress, Decreased Bases, Diminished Breath Sounds (Prachi Huitron) Cardiology CV Exam: Irregular, Arrhythmia, Tachycardia (Prachi Huitron) Gastrointestinal/Abdomen GI Exam: Soft, Non-Tender, Bowel Sounds Present (Prachi Huitron) Extremeties Extremities Exam: Trace Edema (Prachi Huitron) Neurologic Neuro Exam: Alert, Awake (Prachi Huitron) Psychiatric Psych Exam: Appropriate Responses (Prachi Huitron) Assessment/Plan Assessment Summary: Hypotension, End Stage Renal Disease Problem List: (1) ESRD (end stage renal disease) on dialysis ICD Codes: N18.6 - End stage renal disease; Z99.2 - Dependence on renal dialysis Plan: Patient is on hemodialysis has severe aortic stenosis, congestive heart failure, left forearm AV fistula He continued to feel weak and has severe aortic stenosis with atrial fibrillation Prognosis is guarded Encourage oral intake HD today Blood pressure stable, HR labile (2) Aortic valvar stenosis ICD Codes: I35.0 - Nonrheumatic aortic (valve) stenosis (3) Atrial fibrillation ICD Codes: I48.91 - Unspecified atrial fibrillation (4) Diabetes mellitus ICD Codes: E11.9 - Diabetes mellitus Status: Chronic (5) Hypotension ICD Codes: I95.9 - Hypotension, unspecified Status: Acute (Prachi Huitron) Problem List: (1) ESRD (end stage renal disease) on dialysis ICD Codes: N18.6 - End stage renal disease; Z99.2 - Dependence on renal dialysis Plan: Patient is on hemodialysis has severe aortic stenosis, congestive heart failure, left forearm AV fistula He continued to feel weak and has severe aortic stenosis with atrial fibrillation Prognosis is guarded Encourage oral intake HD today Blood pressure stable, HR labile. Patient seen and examined, agree with above. HD as per schedule. (2) Aortic valvar stenosis ICD Codes: I35.0 - Nonrheumatic aortic (valve) stenosis (3) Atrial fibrillation ICD Codes: I48.91 - Unspecified atrial fibrillation (4) Diabetes mellitus ICD Codes: E11.9 - Diabetes mellitus Status: Chronic (5) Hypotension ICD Codes: I95.9 - Hypotension, unspecified Status: Acute (Quiana Mayers MD) Problem Qualifiers (1) Atrial fibrillation: Qualified Codes: I48.91 - Unspecified atrial fibrillation Prachi Huitron May 25, 2017 16:31 Quiana Mayers MD May 25, 2017 17:32
--- NOTE | 2017-05-25 21:17 | PD.CARD.PN ---
Subjective Subjective Remarks Patient was seen earlier today, late entry No chest pain/SOB Heart rates better controlled Objective Medications Current Medications Medications (Trade) Dose Ordered Sig/Jamal Route Start Time Stop Time Status Last Admin (NS Flush) 2 ml UNSCH PRN IV FLUSH 05/13/17 19:45 (NS Flush) 2 ml BID IV FLUSH 05/13/17 21:00 05/25/17 20:12 (Narcan Inj) 0.4 mg UNSCH PRN IV PUSH 05/13/17 19:45 (Zyloprim) 100 mg DAILY PO 05/14/17 09:00 05/25/17 12:42 (Sensipar) 30 mg DAILY PO 05/14/17 09:00 05/25/17 12:42 (Renvela) 2,400 mg TID PO 05/14/17 09:00 05/25/17 12:38 Miscellaneous Information Patient in critical care unit? Ass... Q361D .XX 05/14/17 05:30 (Aspirin Chew) 81 mg DAILY CHEW 05/14/17 09:00 05/25/17 12:39 (Brethine Inj) 1 mg UNSCH PRN SQ 05/14/17 08:00 Sodium Chloride 1,000 ml @ 0 mls/hr Q0M PRN OTHER 05/14/17 11:21 (Heparin Inj) 8,000 units UNSCH PRN IV FLUSH 05/14/17 11:30 Sodium Chloride 1,000 ml @ 200 mls/hr Q5H PRN IV 05/14/17 11:21 05/22/17 17:12 Sodium Chloride 1,000 ml @ 0 mls/hr Q0M PRN OTHER 05/14/17 11:21 (Mannitol Inj) 12.5 gm UNSCH PRN IV 05/14/17 11:30 Albumin Human 100 ml @ 60 mls/hr UNSCH PRN IV 05/14/17 11:30 05/25/17 08:45 (NS Flush) 5 ml UNSCH PRN IV FLUSH 05/14/17 11:30 (Heparin Inj) UNSCH PRN .XX 05/14/17 11:30 (Gentamicin Inj) 20 mg UNSCH PRN OTHER 05/14/17 11:30 (Zofran Inj) 4 mg UNSCH PRN IV PUSH 05/14/17 11:30 (Tylenol) 650 mg UNSCH PRN PO 05/14/17 11:30 05/21/17 00:52 (Benadryl) 25 mg UNSCH PRN PO 05/14/17 11:30 (Nitrostat Sl) 0.4 mg UNSCH PRN SL 05/14/17 11:30 (Catapres) 0.1 mg UNSCH PRN PO 05/14/17 11:30 (Gelfoam 12 Mm/7 Mm Top) 1 foam UNSCH PRN TOP 05/14/17 11:30 05/25/17 11:00 Pharmacy Profile Note 0 ml @ 0 mls/hr UNSCH OTHER 05/15/17 07:45 (Duoneb Neb) 1 ampule Q4HR NEB PRN NEB 05/15/17 07:45 (Cardizem) 60 mg Q6H PO 05/16/17 14:00 05/25/17 20:12 (Peridex 0.12% Liq) 15 ml TID SWISH-SPIT 05/16/17 13:00 05/25/17 12:39 (Lanoxin) 0.125 mg Q48H PO 05/19/17 09:00 05/25/17 12:38 (Pill Splitter) 1 ea UNSCH PRN OTHER 05/19/17 15:00 (Lopressor) 12.5 mg Q6HR PO 05/21/17 18:00 05/25/17 06:09 (Cordarone) 400 mg TIDPC PO 05/22/17 18:30 05/25/17 12:39 (Coumadin) 1 mg Q48H PO 05/24/17 16:00 05/24/17 15:18 ([place] 5-325 Mg) 1 tab Q4HR PRN PO 05/24/17 13:00 05/25/17 12:42 Vital Signs / I&O Vital Signs Date Time Temp Pulse Resp B/P (MAP) Pulse Ox O2 Delivery O2 Flow Rate FiO2 05/25/17 20:23 99 Nasal Cannula 3.00 05/25/17 20:00 96 Nasal Cannula 3.00 05/25/17 20:00 95 05/25/17 17:26 Nasal Cannula 05/25/17 17:18 97.9 95 17 106/60 (75) 100 2/20/18 16:00 98.6 90 18 106/61 (76) 95 05/25/17 16:00 104 05/25/17 14:00 122 05/25/17 12:00 97.5 110 19 104/62 (76) 100 05/25/17 12:00 104 05/25/17 10:00 114 05/25/17 08:00 97.3 97 13 119/56 (77) 100 05/25/17 08:00 103 05/25/17 08:00 96 Nasal Cannula 3.00 05/25/17 07:39 100 Nasal Cannula 3.00 05/25/17 06:00 77 05/25/17 04:00 64 05/25/17 04:00 98.0 64 11 110/53 (72) 100 05/25/17 02:00 90 05/25/17 00:00 97.8 102 17 123/67 (85) 100 05/25/17 00:00 102 05/24/17 22:00 98 I/O 05/24/17 05/24/17 05/24/17 05/25/17 05/25/17 05/25/17 07:00 15:00 23:00 07:00 15:00 23:00 Intake Total 240 ml 240 ml Output Total 0 ml Balance 240 ml 0 ml 240 ml Intake Oral 240 ml 240 ml Output Urine Total 0 ml # Bowel Movements 1 1 Physical Exam GENERAL: NAD, AAOx3 SKIN: Warm and dry. HEAD: Atraumatic. Normocephalic. EYES: Pupils equal and round. No scleral icterus. No injection or drainage. ENT: No nasal bleeding or discharge. Mucous membranes pink and moist. NECK: Trachea midline. No JVD. CARDIOVASCULAR: Irregularly irregular, 3/6 crescendo-decrescendo murmur to the RSB RESPIRATORY: No accessory muscle use. Clear to auscultation. Breath sounds equal bilaterally. GASTROINTESTINAL: Abdomen soft, non-tender, nondistended. Hepatic and splenic margins not palpable. MUSCULOSKELETAL: Extremities without clubbing, cyanosis, or edema. No obvious deformities. NEUROLOGICAL: Awake and alert. No obvious cranial nerve deficits. Motor grossly within normal limits. Five out of 5 muscle strength in the arms and legs. Normal speech. PSYCHIATRIC: Appropriate mood and affect; insight and judgment normal. Laboratory Laboratory Tests Test 05/25/17 06:12 Prothrombin Time 20.3 SEC Prothromb Time International Ratio 2.0 RATIO Assessment and Plan Problem List: (1) Aortic valvar stenosis ICD Codes: I35.0 - Nonrheumatic aortic (valve) stenosis (2) ESRD (end stage renal disease) on dialysis ICD Codes: N18.6 - End stage renal disease; Z99.2 - Dependence on renal dialysis (3) Atrial fibrillation ICD Codes: I48.91 - Unspecified atrial fibrillation (4) Diabetes mellitus ICD Codes: E11.9 - Diabetes mellitus Status: Chronic (5) Hypotension ICD Codes: I95.9 - Hypotension, unspecified Status: Acute (6) End stage renal disease on dialysis ICD Codes: N18.6 - End stage renal disease on dialysis; Z99.2 - Dependence on renal dialysis Status: Acute (7) CAD (coronary artery disease) ICD Codes: I25.10 - Atherosclerotic heart disease of [place] coronary artery without angina pectoris Assessment and Plan 1) Afib Heart rates better Con't BB/CCB/Dig Started on Amiodarone load 2) Shock Most likely cardiogenic with Afib with RVR as well as his aortic stenosis 3) Overall believe his admission is based on his Afib with RVR more than anything 4) Severe Consideration of PCI with BAV, as any time he goes into RVR he's going to become shock-like, will have to see how he does Would end up being BMS of LAD as needs dental work Eventual TAVR, will need to have dental work first but having difficulty getting Oral Maxillofacial surgery saw him and wants to see outpt For now, will control heart rates for Afib and if stable get him to rehab then to Dr. Santiago for dental work If further episodes of concern then would consider PCI and BAV, as patient was on minimal medications to control Afib when he left here last admission 5) No further cardiovascular issues Amiodarone 400mg TID for 1 week, then change to 200mg daily Problem Qualifiers (1) Atrial fibrillation: Qualified Codes: I48.91 - Unspecified atrial fibrillation Jeffrey Ortiz DO May 25, 2017 21:17
[2017-05-26] VITALS (12 sets, daily range): BP systolic 79–144; BP diastolic 39–76; PULSE 74–101; RESP 18–20; TEMP 97.7–98.5; O2SAT 92–98
[2017-05-26] MEDS: DILTIAZEM HCL 60 MG TAB PO SCH ×4 (02:33→20:24)
[2017-05-26 05:48] LABS: INTERNATIONAL NORMALIZED RATIO 1.9 RATIO; PROTHROMBIN TIME - PATIENT 18.8 SEC (9.8-11.6)
[2017-05-26] MEDS: METOPROLOL TARTRATE 25 MG TAB PO SCH ×5 (05:52→23:38)
[2017-05-26 05:58] LABS: HEMATOCRIT 26.1 % (39.0-51.0); HEMOGLOBIN 8.5 GM/DL (13.0-17.0); MEAN CELL VOLUME 103.1 FL (80.0-100.0); MEAN CORPUSCULAR HEMOGLOBIN 33.6 PG (27.0-34.0); MEAN CORPUSCULAR HGB CONC 32.5 % (32.0-36.0); MEAN PLATELET VOLUME 9.4 FL (7.0-11.0); PLATELET COUNT 164 TH/MM3 (150-450); RED BLOOD COUNT 2.53 MIL/MM3 (4.50-5.90); RED CELL DISTRIBUTION WIDTH 17.3 % (11.6-17.2); WHITE BLOOD COUNT 6.8 TH/MM3 (4.0-11.0)
[2017-05-26] MEDS: CINACALCET HYDROCHLORIDE 30 MG TAB PO SCH (09:00)
[2017-05-26] MEDS: SODIUM CHLORIDE 0.9% FLUSH 10 ML FLUSH IV FLUSH SCH ×2 (09:00→20:24)
[2017-05-26] MEDS: ALLOPURINOL 100 MG TAB PO SCH (09:09)
[2017-05-26] MEDS: AMIODARONE 200 MG TAB PO SCH ×3 (09:09→18:01)
[2017-05-26] MEDS: ASPIRIN 81 MG CHEW TAB CHEW SCH (09:09)
[2017-05-26] MEDS: CHLORHEXIDINE GLUCONATE 0.12% 15 ML CUP SWISH-SPIT SCH ×3 (09:09→18:01)
[2017-05-26] MEDS: SEVELAMER CARBONATE 800 MG TAB PO SCH ×3 (09:09→18:01)
[2017-05-26] MEDS: ACETAMINOPHEN/HYDROcodone 325 MG/5 MG TAB PO PRN ×2 (09:16→20:24)
--- NOTE | 2017-05-26 11:06 | HHI.PR ---
Subjective Remarks Follow-up stage renal disease hemodialysis/hypotension 05/26/17-patient seen and examined, no acute event overnight. Alert and oriented 2. Afebrile. Had hemodialysis yesterday Objective Vitals Vital Signs Date Time Temp Pulse Resp B/P (MAP) Pulse Ox O2 Delivery O2 Flow Rate FiO2 05/26/17 09:23 95 Nasal Cannula 3.00 05/26/17 08:00 98.5 77 18 106/54 (71) 95 05/26/17 04:30 87 99/59 (72) 05/26/17 04:15 80 102/55 (71) 05/26/17 04:00 96 Nasal Cannula 3.00 05/26/17 04:00 86 05/26/17 04:00 79/64 (69) 05/26/17 00:00 97.7 80 19 117/57 (77) 95 05/26/17 00:00 101 05/26/17 00:00 96 Nasal Cannula 3.00 05/25/17 20:23 99 Nasal Cannula 3.00 05/25/17 20:00 97.6 91 20 115/60 (78) 96 05/25/17 20:00 96 Nasal Cannula 3.00 05/25/17 20:00 95 05/25/17 17:26 Nasal Cannula 05/25/17 17:18 97.9 95 17 106/60 (75) 100 05/25/17 16:00 98.6 90 18 106/61 (76) 95 05/25/17 16:00 104 05/25/17 14:00 122 05/25/17 12:00 97.5 110 19 104/62 (76) 100 05/25/17 12:00 104 I/O 05/25/17 05/25/17 05/25/17 05/26/17 05/26/17 05/26/17 07:00 15:00 23:00 07:00 15:00 23:00 Intake Total 240 ml 240 ml Balance 240 ml 240 ml Intake Oral 240 ml 240 ml Result Diagram: 05/26/17 0520 05/24/17 0500 Imaging Last Impressions Chest X-Ray 05/18/17 0600 Signed Impressions: Service Date/Time: Thursday, May 18, 2017 03:32 - CONCLUSION: No significant change has occurred. Damien Pierson MD Objective Remarks GENERAL: NAD SKIN: Warm and dry. HEAD: Normocephalic. EYES: No scleral icterus. No injection or drainage. NECK: Supple, trachea midline. No JVD or lymphadenopathy. CARDIOVASCULAR: Regular rate and rhythm without murmurs, gallops, or rubs. RESPIRATORY: Breath sounds equal bilaterally. No accessory muscle use. GASTROINTESTINAL: Abdomen soft, non-tender, nondistended. MUSCULOSKELETAL: No cyanosis, or edema. BACK: Nontender without obvious deformity. No CVA tenderness. A/P Assessment and Plan 76 years man with 1. Atrial fibrillation with RVR: Appreciate cardiology recommendations. -Cardizem PO 60 mg every 6 -Amiodarone 400 mg po TID per cardiology -Daily digoxin started by cardiology changed to q. other day 2/2 ESRD -Coumadin held due to supra therapeutic INR. -Aspirin 81 mg daily -No beta-blockers due to hypotension 2. Hypotension-Resolved 3. Severe aortic stenosis: Patient needs TAVR. Surgery on hold pending dental work. 4. Poor dentition: Patient has multiple decayed teeth. Need his teeth extracted prior to any surgical intervention (Dr. Santiago recommended OP appointment) 5. End-stage renal disease on hemodialysis: Management per nephrology. Hemodialysis per Nephrology 6. Hypertension: Continue current medications. 7. History of C. difficile: Recently treated 8. DVT prophylaxis: SCDs, Coumadin. 9. Patent foramen ovale: Continue with current anticoagulation. Jeremias Mcmillan MD May 26, 2017 11:06
[2017-05-26] MEDS ORDERED: WARFARIN SOD 1 MG TAB PO SCH (16:00)
--- NOTE | 2017-05-26 18:12 | PD.CARD.PN ---
Subjective Subjective Remarks Patient was seen earlier today, late entry No chest pain/SOB Heart rates better controlled Objective Medications Current Medications Medications (Trade) Dose Ordered Sig/Jamal Route Start Time Stop Time Status Last Admin (NS Flush) 2 ml UNSCH PRN IV FLUSH 05/13/17 19:45 (NS Flush) 2 ml BID IV FLUSH 05/13/17 21:00 05/26/17 09:00 (Narcan Inj) 0.4 mg UNSCH PRN IV PUSH 05/13/17 19:45 (Zyloprim) 100 mg DAILY PO 05/14/17 09:00 05/26/17 09:09 (Sensipar) 30 mg DAILY PO 05/14/17 09:00 05/26/17 09:00 (Renvela) 2,400 mg TID PO 05/14/17 09:00 05/26/17 18:01 Miscellaneous Information Patient in critical care unit? Ass... Q361D .XX 05/14/17 05:30 (Aspirin Chew) 81 mg DAILY CHEW 05/14/17 09:00 05/26/17 09:09 (Brethine Inj) 1 mg UNSCH PRN SQ 05/14/17 08:00 Sodium Chloride 1,000 ml @ 0 mls/hr Q0M PRN OTHER 05/14/17 11:21 (Heparin Inj) 8,000 units UNSCH PRN IV FLUSH 05/14/17 11:30 Sodium Chloride 1,000 ml @ 200 mls/hr Q5H PRN IV 05/14/17 11:21 05/22/17 17:12 Sodium Chloride 1,000 ml @ 0 mls/hr Q0M PRN OTHER 05/14/17 11:21 (Mannitol Inj) 12.5 gm UNSCH PRN IV 05/14/17 11:30 Albumin Human 100 ml @ 60 mls/hr UNSCH PRN IV 05/14/17 11:30 05/25/17 08:45 (NS Flush) 5 ml UNSCH PRN IV FLUSH 05/14/17 11:30 (Heparin Inj) UNSCH PRN .XX 05/14/17 11:30 (Gentamicin Inj) 20 mg UNSCH PRN OTHER 05/14/17 11:30 (Zofran Inj) 4 mg UNSCH PRN IV PUSH 05/14/17 11:30 (Tylenol) 650 mg UNSCH PRN PO 05/14/17 11:30 05/21/17 00:52 (Benadryl) 25 mg UNSCH PRN PO 05/14/17 11:30 (Nitrostat Sl) 0.4 mg UNSCH PRN SL 05/14/17 11:30 (Catapres) 0.1 mg UNSCH PRN PO 05/14/17 11:30 (Gelfoam 12 Mm/7 Mm Top) 1 foam UNSCH PRN TOP 05/14/17 11:30 05/25/17 11:00 Pharmacy Profile Note 0 ml @ 0 mls/hr UNSCH OTHER 05/15/17 07:45 (Duoneb Neb) 1 ampule Q4HR NEB PRN NEB 05/15/17 07:45 (Cardizem) 60 mg Q6H PO 05/16/17 14:00 05/26/17 13:38 (Peridex 0.12% Liq) 15 ml TID SWISH-SPIT 05/16/17 13:00 05/26/17 18:01 (Lanoxin) 0.125 mg Q48H PO 05/19/17 09:00 05/25/17 12:38 (Pill Splitter) 1 ea UNSCH PRN OTHER 05/19/17 15:00 (Lopressor) 12.5 mg Q6HR PO 05/21/17 18:00 05/26/17 18:00 (Cordarone) 400 mg TIDPC PO 05/22/17 18:30 05/26/17 18:01 (Dailey 5-325 Mg) 1 tab Q4HR PRN PO 05/24/17 13:00 05/26/17 09:16 (Coumadin) 0.75 mg Q48H PO 05/26/17 16:00 05/26/17 18:00 Vital Signs / I&O Vital Signs Date Time Temp Pulse Resp B/P (MAP) Pulse Ox O2 Delivery O2 Flow Rate FiO2 05/26/17 16:00 97.9 89 18 119/56 (77) 98 05/26/17 12:00 98.2 81 18 113/57 (75) 92 05/26/17 09:23 95 Nasal Cannula 3.00 05/26/17 08:00 98.5 77 18 106/54 (71) 95 05/26/17 04:30 87 99/59 (72) 05/26/17 04:15 80 102/55 (71) 05/26/17 04:00 96 Nasal Cannula 3.00 05/26/17 04:00 86 05/26/17 04:00 79/64 (69) 05/26/17 00:00 97.7 80 19 117/57 (77) 95 05/26/17 00:00 101 05/26/17 00:00 96 Nasal Cannula 3.00 05/25/17 20:23 99 Nasal Cannula 3.00 05/25/17 20:00 97.6 91 20 115/60 (78) 96 05/25/17 20:00 96 Nasal Cannula 3.00 05/25/17 20:00 95 I/O 05/25/17 05/25/17 05/25/17 05/26/17 05/26/17 05/26/17 07:00 15:00 23:00 07:00 15:00 23:00 Intake Total 240 ml 240 ml 480 ml Output Total 0 ml Balance 240 ml 240 ml 480 ml Intake Oral 240 ml 240 ml 480 ml Output Urine Total 0 ml # Bowel Movements 2 Physical Exam GENERAL: NAD, AAOx3 SKIN: Warm and dry. HEAD: Atraumatic. Normocephalic. EYES: Pupils equal and round. No scleral icterus. No injection or drainage. ENT: No nasal bleeding or discharge. Mucous membranes pink and moist. NECK: Trachea midline. No JVD. CARDIOVASCULAR: Irregularly irregular, 3/6 crescendo-decrescendo murmur to the RSB RESPIRATORY: No accessory muscle use. Clear to auscultation. Breath sounds equal bilaterally. GASTROINTESTINAL: Abdomen soft, non-tender, nondistended. Hepatic and splenic margins not palpable. MUSCULOSKELETAL: Extremities without clubbing, cyanosis, or edema. No obvious deformities. NEUROLOGICAL: Awake and alert. No obvious cranial nerve deficits. Motor grossly within normal limits. Five out of 5 muscle strength in the arms and legs. Normal speech. PSYCHIATRIC: Appropriate mood and affect; insight and judgment normal. Laboratory Laboratory Tests Test 05/26/17 05:20 White Blood Count 6.8 TH/MM3 Red Blood Count 2.53 MIL/MM3 Hemoglobin 8.5 GM/DL Hematocrit 26.1 % Mean Corpuscular Volume 103.1 FL Mean Corpuscular Hemoglobin 33.6 PG Mean Corpuscular Hemoglobin Concent 32.5 % Red Cell Distribution Width 17.3 % Platelet Count 164 TH/MM3 Mean Platelet Volume 9.4 FL Prothrombin Time 18.8 SEC Prothromb Time International Ratio 1.9 RATIO Assessment and Plan Problem List: (1) Aortic valvar stenosis ICD Codes: I35.0 - Nonrheumatic aortic (valve) stenosis (2) ESRD (end stage renal disease) on dialysis ICD Codes: N18.6 - End stage renal disease; Z99.2 - Dependence on renal dialysis (3) Atrial fibrillation ICD Codes: I48.91 - Unspecified atrial fibrillation (4) Diabetes mellitus ICD Codes: E11.9 - Diabetes mellitus Status: Chronic (5) Hypotension ICD Codes: I95.9 - Hypotension, unspecified Status: Acute (6) End stage renal disease on dialysis ICD Codes: N18.6 - End stage renal disease on dialysis; Z99.2 - Dependence on renal dialysis Status: Acute (7) CAD (coronary artery disease) ICD Codes: I25.10 - Atherosclerotic heart disease of [place] coronary artery without angina pectoris Assessment and Plan 1) Afib Heart rates controlled Con't BB/CCB/Dig Started on Amiodarone load 2) Shock Most likely cardiogenic with Afib with RVR as well as his aortic stenosis 3) Overall believe his admission is based on his Afib with RVR more than anything 4) Severe Consideration of PCI with BAV, as any time he goes into RVR he's going to become shock-like, will have to see how he does Would end up being BMS of LAD as needs dental work Eventual TAVR, will need to have dental work first but having difficulty getting Oral Maxillofacial surgery saw him and wants to see outpt For now, will control heart rates for Afib and if stable get him to rehab then to Dr. Santiago for dental work If further episodes of concern then would consider PCI and BAV, as patient was on minimal medications to control Afib when he left here last admission 5) No further cardiovascular issues, to rehab when able Amiodarone 400mg TID for 1 week, then change to 200mg daily Check digoxin level in 1-2 weeks Problem Qualifiers (1) Atrial fibrillation: Qualified Codes: I48.91 - Unspecified atrial fibrillation Jeffrey Ortiz DO May 26, 2017 18:12
--- NOTE | 2017-05-26 19:17 | HHI.NPPN ---
Subjective History of Present Illness 76-year-old male known to me from before with past medical history of hypertension, diabetes mellitus, hyperlipidemia, severe aortic stenosis, atrial fibrillation, chronic anemia, who was recently discharged from the hospital and brought back because of hypotension from the dialysis. The patient has been on regular dialysis Wednesday, and Wednesday. Additional Remarks Patient is alert, no SOB, no dizziness, eating some what better. Review of Systems Respiratory Respiratory Remarks Denies sob Gastrointestinal GI Remarks No abdominal pain Musculoskeletal MS: Pain/Stiffness MS Remarks back Objective Data Data 05/26/17 05/27/17 19:00 07:00 Intake Total 480 ml Output Total 0 ml Balance 480 ml Intake Oral 480 ml Output Urine Total 0 ml # Bowel Movements 2 Vital Signs Date Time Temp Pulse Resp B/P (MAP) Pulse Ox O2 Delivery O2 Flow Rate FiO2 05/26/17 16:00 97.9 89 18 119/56 (77) 98 05/26/17 12:00 98.2 81 18 113/57 (75) 92 05/26/17 09:23 95 Nasal Cannula 3.00 05/26/17 08:00 98.5 77 18 106/54 (71) 95 05/26/17 04:30 87 99/59 (72) 05/26/17 04:15 80 102/55 (71) 05/26/17 04:00 96 Nasal Cannula 3.00 05/26/17 04:00 86 05/26/17 04:00 79/64 (69) 05/26/17 00:00 97.7 80 19 117/57 (77) 95 05/26/17 00:00 101 05/26/17 00:00 96 Nasal Cannula 3.00 05/25/17 20:23 99 Nasal Cannula 3.00 05/25/17 20:00 97.6 91 20 115/60 (78) 96 05/25/17 20:00 96 Nasal Cannula 3.00 05/25/17 20:00 95 -: 05/26/17 0520 05/24/17 0500 Physical Exam General Appearance: No Acute Distress, Comfortable Eyes Eye Exam: Pupils Equal Pulmonary Resp Exam: Breath Sounds Equal, No Distress, Decreased Bases, Diminished Breath Sounds Cardiology CV Exam: Irregular, Arrhythmia, Tachycardia Gastrointestinal/Abdomen GI Exam: Soft, Non-Tender, Bowel Sounds Present Extremeties Extremities Exam: Trace Edema Neurologic Neuro Exam: Alert, Awake Psychiatric Psych Exam: Appropriate Responses Assessment/Plan Assessment Summary: Hypotension, End Stage Renal Disease Problem List: (1) ESRD (end stage renal disease) on dialysis ICD Codes: N18.6 - End stage renal disease; Z99.2 - Dependence on renal dialysis Plan: Patient is on hemodialysis has severe aortic stenosis, congestive heart failure, left forearm AV fistula He continued to feel weak and has severe aortic stenosis with atrial fibrillation Prognosis is guarded Encourage oral intake Blood pressure stable, HR labile. Hgb. dropped, on Epogen. Will check Iron study, follow Hgb. HD will be in AM. (2) Aortic valvar stenosis ICD Codes: I35.0 - Nonrheumatic aortic (valve) stenosis (3) Atrial fibrillation ICD Codes: I48.91 - Unspecified atrial fibrillation (4) Diabetes mellitus ICD Codes: E11.9 - Diabetes mellitus Status: Chronic (5) Hypotension ICD Codes: I95.9 - Hypotension, unspecified Status: Acute Problem Qualifiers (1) Atrial fibrillation: Qualified Codes: I48.91 - Unspecified atrial fibrillation Quiana Mayers MD May 26, 2017 19:17
[2017-05-27] VITALS (12 sets, daily range): BP systolic 91–168; BP diastolic 45–82; PULSE 58–89; RESP 16–20; TEMP 97.3–98; O2SAT 97–100
[2017-05-27] MEDS: DILTIAZEM HCL 60 MG TAB PO SCH ×4 (02:18→23:12)
[2017-05-27] MEDS: METOPROLOL TARTRATE 25 MG TAB PO SCH ×3 (05:45→18:04)
[2017-05-27 06:20] LABS: INTERNATIONAL NORMALIZED RATIO 1.5 RATIO; PROTHROMBIN TIME - PATIENT 15.4 SEC (9.8-11.6)
[2017-05-27 06:35] LABS: IRON (FE) 43 MCG/DL (65-175); PHOSPHORUS 3.9 MG/DL (2.5-4.9)
[2017-05-27 06:45] LABS: % SATURATION IRON PROFILE 25.8 % (20-50); FERRITIN 380 NG/ML (26-388); TOTAL IRON BINDING CAPACITY 167 MCG/DL (250-450)
[2017-05-27] MEDS: CHLORHEXIDINE GLUCONATE 0.12% 15 ML CUP SWISH-SPIT SCH ×4 (09:14→18:04)
[2017-05-27] MEDS: DIGOXIN 0.125 MG TAB PO SCH (09:14)
[2017-05-27] MEDS: ASPIRIN 81 MG CHEW TAB CHEW SCH (09:14)
[2017-05-27] MEDS: SEVELAMER CARBONATE 800 MG TAB PO SCH ×3 (09:14→18:04)
[2017-05-27] MEDS: SODIUM CHLORIDE 0.9% FLUSH 10 ML FLUSH IV FLUSH SCH ×2 (09:15→23:12)
[2017-05-27] MEDS: ALLOPURINOL 100 MG TAB PO SCH (09:16)
[2017-05-27] MEDS: AMIODARONE 200 MG TAB PO SCH ×3 (09:16→18:11)
[2017-05-27] MEDS: CINACALCET HYDROCHLORIDE 30 MG TAB PO SCH (09:29)
--- NOTE | 2017-05-27 11:34 | HHI.PR ---
Subjective Remarks Follow-up stage renal disease hemodialysis/hypotension 05/26/17-patient seen and examined, no acute event overnight. Alert and oriented 2. Afebrile. Had hemodialysis yesterday 05/27/17-patient seen and examined, no acute event overnight. BP soft. Plan for hemodialysis today Objective Vitals Vital Signs Date Time Temp Pulse Resp B/P (MAP) Pulse Ox O2 Delivery O2 Flow Rate FiO2 05/27/17 08:00 Nasal Cannula 2.50 40 05/27/17 08:00 97.3 82 18 99/48 (65) 98 05/27/17 08:00 58 05/27/17 05:46 63 110/56 (74) 05/27/17 04:00 Nasal Cannula 2.50 05/27/17 03:52 64 05/27/17 03:30 97.5 70 18 126/58 (80) 97 05/27/17 02:17 63 115/64 (81) 98 05/27/17 00:12 98.0 85 18 168/82 (110) 98 05/27/17 00:00 Nasal Cannula 2.50 05/26/17 23:49 81 05/26/17 23:02 97.7 77 18 91/39 (56) 96 05/26/17 20:23 Nasal Cannula 2.50 05/26/17 19:48 100 05/26/17 19:10 98.0 89 20 144/76 (98) 97 05/26/17 16:00 97.9 89 18 119/56 (77) 98 05/26/17 12:00 98.2 81 18 113/57 (75) 92 I/O 05/26/17 05/26/17 05/26/17 05/27/17 05/27/17 05/27/17 07:00 15:00 23:00 07:00 15:00 23:00 Intake Total 240 ml 480 ml 540 ml Output Total 0 ml Balance 240 ml 480 ml 540 ml Intake Oral 240 ml 480 ml 540 ml Output Urine Total 0 ml # Bowel Movements 2 Result Diagram: 05/26/17 0520 05/24/17 0500 Imaging Last Impressions Chest X-Ray 05/18/17 0600 Signed Impressions: Service Date/Time: Thursday, May 18, 2017 03:32 - CONCLUSION: No significant change has occurred. Damien Pierson MD Objective Remarks GENERAL: NAD SKIN: Warm and dry. HEAD: Normocephalic. EYES: No scleral icterus. No injection or drainage. NECK: Supple, trachea midline. No JVD or lymphadenopathy. CARDIOVASCULAR: Regular rate and rhythm without murmurs, gallops, or rubs. RESPIRATORY: Breath sounds equal bilaterally. No accessory muscle use. GASTROINTESTINAL: Abdomen soft, non-tender, nondistended. MUSCULOSKELETAL: No cyanosis, or edema. BACK: Nontender without obvious deformity. No CVA tenderness. Procedures None A/P Assessment and Plan 76 years man with 1. Atrial fibrillation with RVR: Appreciate cardiology recommendations. -Cardizem PO 60 mg every 6 -Amiodarone 400 mg po TID per cardiology -Daily digoxin q. other day 2/2 ESRD -Coumadin -Aspirin 81 mg daily -No beta-blockers due to hypotension 2. Hypotension-Resolved 3. Severe aortic stenosis: Patient needs TAVR. Surgery on hold pending dental work. 4. Poor dentition: Patient has multiple decayed teeth. Need his teeth extracted prior to any surgical intervention (Dr. Santiago recommended OP appointment) 5. End-stage renal disease on hemodialysis: Management per nephrology. Hemodialysis per Nephrology 6. Hypertension: Continue current medications. 7. History of C. difficile: Recently treated 8. DVT prophylaxis: SCDs, Coumadin. 9. Patent foramen ovale: Continue with current anticoagulation. Jeremias Mcmillan MD May 27, 2017 11:34
--- NOTE | 2017-05-27 13:48 | PD.CARD.PN ---
Subjective Subjective Remarks No chest pain/SOB Heart rates better controlled Objective Medications Current Medications Medications (Trade) Dose Ordered Sig/Jamal Route Start Time Stop Time Status Last Admin (NS Flush) 2 ml UNSCH PRN IV FLUSH 05/13/17 19:45 (NS Flush) 2 ml BID IV FLUSH 05/13/17 21:00 05/27/17 09:15 (Narcan Inj) 0.4 mg UNSCH PRN IV PUSH 05/13/17 19:45 (Zyloprim) 100 mg DAILY PO 05/14/17 09:00 05/27/17 09:16 (Sensipar) 30 mg DAILY PO 05/14/17 09:00 05/27/17 09:29 (Renvela) 2,400 mg TID PO 05/14/17 09:00 05/27/17 12:16 Miscellaneous Information Patient in critical care unit? Ass... Q361D .XX 05/14/17 05:30 (Aspirin Chew) 81 mg DAILY CHEW 05/14/17 09:00 05/27/17 09:14 (Brethine Inj) 1 mg UNSCH PRN SQ 05/14/17 08:00 Sodium Chloride 1,000 ml @ 0 mls/hr Q0M PRN OTHER 05/14/17 11:21 (Heparin Inj) 8,000 units UNSCH PRN IV FLUSH 05/14/17 11:30 Sodium Chloride 1,000 ml @ 200 mls/hr Q5H PRN IV 05/14/17 11:21 05/22/17 17:12 Sodium Chloride 1,000 ml @ 0 mls/hr Q0M PRN OTHER 05/14/17 11:21 (Mannitol Inj) 12.5 gm UNSCH PRN IV 05/14/17 11:30 Albumin Human 100 ml @ 60 mls/hr UNSCH PRN IV 05/14/17 11:30 05/25/17 08:45 (NS Flush) 5 ml UNSCH PRN IV FLUSH 05/14/17 11:30 (Heparin Inj) UNSCH PRN .XX 05/14/17 11:30 (Gentamicin Inj) 20 mg UNSCH PRN OTHER 05/14/17 11:30 (Zofran Inj) 4 mg UNSCH PRN IV PUSH 05/14/17 11:30 (Tylenol) 650 mg UNSCH PRN PO 05/14/17 11:30 05/21/17 00:52 (Benadryl) 25 mg UNSCH PRN PO 05/14/17 11:30 (Nitrostat Sl) 0.4 mg UNSCH PRN SL 05/14/17 11:30 (Catapres) 0.1 mg UNSCH PRN PO 05/14/17 11:30 (Gelfoam 12 Mm/7 Mm Top) 1 foam UNSCH PRN TOP 05/14/17 11:30 05/25/17 11:00 Pharmacy Profile Note 0 ml @ 0 mls/hr UNSCH OTHER 05/15/17 07:45 (Duoneb Neb) 1 ampule Q4HR NEB PRN NEB 05/15/17 07:45 (Cardizem) 60 mg Q6H PO 05/16/17 14:00 05/27/17 09:16 (Peridex 0.12% Liq) 15 ml TID SWISH-SPIT 05/16/17 13:00 05/27/17 12:16 (Lanoxin) 0.125 mg Q48H PO 05/19/17 09:00 05/27/17 09:14 (Pill Splitter) 1 ea UNSCH PRN OTHER 05/19/17 15:00 (Lopressor) 12.5 mg Q6HR PO 05/21/17 18:00 05/27/17 05:45 (Cordarone) 400 mg TIDPC PO 05/22/17 18:30 05/27/17 12:59 (Willow 5-325 Mg) 1 tab Q4HR PRN PO 05/24/17 13:00 05/26/17 20:24 (Coumadin) 0.75 mg Q24H PO 05/27/17 16:00 Vital Signs / I&O Vital Signs Date Time Temp Pulse Resp B/P (MAP) Pulse Ox O2 Delivery O2 Flow Rate FiO2 05/27/17 08:00 Nasal Cannula 2.50 40 05/27/17 08:00 97.3 82 18 99/48 (65) 98 05/27/17 08:00 58 05/27/17 05:46 63 110/56 (74) 05/27/17 04:00 Nasal Cannula 2.50 05/27/17 03:52 64 05/27/17 03:30 97.5 70 18 126/58 (80) 97 05/27/17 02:17 63 115/64 (81) 98 05/27/17 00:12 98.0 85 18 168/82 (110) 98 05/27/17 00:00 Nasal Cannula 2.50 05/26/17 23:49 81 05/26/17 23:02 97.7 77 18 91/39 (56) 96 05/26/17 20:23 Nasal Cannula 2.50 05/26/17 19:48 100 05/26/17 19:10 98.0 89 20 144/76 (98) 97 05/26/17 16:00 97.9 89 18 119/56 (77) 98 I/O 05/26/17 05/26/17 05/26/17 05/27/17 05/27/17 05/27/17 07:00 15:00 23:00 07:00 15:00 23:00 Intake Total 240 ml 480 ml 540 ml Output Total 0 ml Balance 240 ml 480 ml 540 ml Intake Oral 240 ml 480 ml 540 ml Output Urine Total 0 ml # Bowel Movements 2 Physical Exam GENERAL: NAD, AAOx3 SKIN: Warm and dry. HEAD: Atraumatic. Normocephalic. EYES: Pupils equal and round. No scleral icterus. No injection or drainage. ENT: No nasal bleeding or discharge. Mucous membranes pink and moist. NECK: Trachea midline. No JVD. CARDIOVASCULAR: Irregularly irregular, 3/6 crescendo-decrescendo murmur to the RSB RESPIRATORY: No accessory muscle use. Clear to auscultation. Breath sounds equal bilaterally. GASTROINTESTINAL: Abdomen soft, non-tender, nondistended. Hepatic and splenic margins not palpable. MUSCULOSKELETAL: Extremities without clubbing, cyanosis, or edema. No obvious deformities. NEUROLOGICAL: Awake and alert. No obvious cranial nerve deficits. Motor grossly within normal limits. Five out of 5 muscle strength in the arms and legs. Normal speech. PSYCHIATRIC: Appropriate mood and affect; insight and judgment normal. Laboratory Laboratory Tests Test 05/27/17 05:50 Prothrombin Time 15.4 SEC Prothromb Time International Ratio 1.5 RATIO Phosphorus Level 3.9 MG/DL Iron Level 43 MCG/DL Total Iron Binding Capacity 167 MCG/DL Percent Iron Saturation 25.8 % Ferritin 380 NG/ML Assessment and Plan Problem List: (1) Aortic valvar stenosis ICD Codes: I35.0 - Nonrheumatic aortic (valve) stenosis (2) ESRD (end stage renal disease) on dialysis ICD Codes: N18.6 - End stage renal disease; Z99.2 - Dependence on renal dialysis (3) Atrial fibrillation ICD Codes: I48.91 - Unspecified atrial fibrillation (4) Diabetes mellitus ICD Codes: E11.9 - Diabetes mellitus Status: Chronic (5) Hypotension ICD Codes: I95.9 - Hypotension, unspecified Status: Acute (6) End stage renal disease on dialysis ICD Codes: N18.6 - End stage renal disease on dialysis; Z99.2 - Dependence on renal dialysis Status: Acute (7) CAD (coronary artery disease) ICD Codes: I25.10 - Atherosclerotic heart disease of [place] coronary artery without angina pectoris Assessment and Plan 1) Afib Heart rates controlled Con't BB/CCB/Dig Started on Amiodarone load 2) Shock Most likely cardiogenic with Afib with RVR as well as his aortic stenosis 3) Overall believe his admission is based on his Afib with RVR more than anything 4) Severe Consideration of PCI with BAV, as any time he goes into RVR he's going to become shock-like, will have to see how he does Would end up being BMS of LAD as needs dental work Eventual TAVR, will need to have dental work first but having difficulty getting Oral Maxillofacial surgery saw him and wants to see outpt For now, will control heart rates for Afib and if stable get him to rehab then to Dr. Santiago for dental work If further episodes of concern then would consider PCI and BAV, as patient was on minimal medications to control Afib when he left here last admission 5) No further cardiovascular issues, to rehab when able Amiodarone 400mg TID for 1 week (05/29/17 stop date), then change to 200mg daily Check digoxin level in 1-2 weeks Problem Qualifiers (1) Atrial fibrillation: Qualified Codes: I48.91 - Unspecified atrial fibrillation Jeffrey Ortiz DO May 27, 2017 13:48
--- NOTE | 2017-05-27 14:22 | HHI.NPPN ---
Subjective History of Present Illness 76-year-old male known to me from before with past medical history of hypertension, diabetes mellitus, hyperlipidemia, severe aortic stenosis, atrial fibrillation, chronic anemia, who was recently discharged from the hospital and brought back because of hypotension from the dialysis. The patient has been on regular dialysis Wednesday, and Wednesday. Additional Remarks Patient is resting comfortably, no SOB, no dizziness. (Prachi Huitron) Review of Systems Respiratory Respiratory Remarks Denies sob (Prachi Huitron) Gastrointestinal GI Remarks No abdominal pain (Prachi Huitron) Musculoskeletal MS Remarks back (Prachi Huitron) Objective Data Data Vital Signs Date Time Temp Pulse Resp B/P (MAP) Pulse Ox O2 Delivery O2 Flow Rate FiO2 05/27/17 08:00 Nasal Cannula 2.50 40 05/27/17 08:00 97.3 82 18 99/48 (65) 98 05/27/17 08:00 58 05/27/17 05:46 63 110/56 (74) 05/27/17 04:00 Nasal Cannula 2.50 05/27/17 03:52 64 05/27/17 03:30 97.5 70 18 126/58 (80) 97 05/27/17 02:17 63 115/64 (81) 98 05/27/17 00:12 98.0 85 18 168/82 (110) 98 05/27/17 00:00 Nasal Cannula 2.50 05/26/17 23:49 81 05/26/17 23:02 97.7 77 18 91/39 (56) 96 05/26/17 20:23 Nasal Cannula 2.50 05/26/17 19:48 100 05/26/17 19:10 98.0 89 20 144/76 (98) 97 05/26/17 16:00 97.9 89 18 119/56 (77) 98 (Prachi Huitron) -: 05/26/17 0520 05/24/17 0500 Physical Exam General Appearance: No Acute Distress, Comfortable (Prachi Huitron) Eyes Eye Exam: Pupils Equal (Prachi Huitron) Pulmonary Resp Exam: Breath Sounds Equal, No Distress, Decreased Bases, Diminished Breath Sounds (Prachi Huitron) Cardiology CV Exam: Irregular, Arrhythmia, Tachycardia (Prachi Huitron) Gastrointestinal/Abdomen GI Exam: Soft, Non-Tender, Bowel Sounds Present (Prachi Huitron) Extremeties Extremities Exam: Trace Edema (Prachi Huitron) Neurologic Neuro Exam: Alert, Awake (Prachi Huitron) Psychiatric Psych Exam: Appropriate Responses (Prachi Huitron) Assessment/Plan Assessment Summary: Hypotension, End Stage Renal Disease Problem List: (1) ESRD (end stage renal disease) on dialysis ICD Codes: N18.6 - End stage renal disease; Z99.2 - Dependence on renal dialysis Plan: Patient is on hemodialysis has severe aortic stenosis, congestive heart failure, left forearm AV fistula He continued to feel weak and has severe aortic stenosis with atrial fibrillation Prognosis is guarded Encourage oral intake Blood pressure stable, HR well controlled Hgb. dropped, Epogen added 10,000 units Iron sat 25.9 with Ferritin level of 380 Seen during dialysis HD (2) Aortic valvar stenosis ICD Codes: I35.0 - Nonrheumatic aortic (valve) stenosis (3) Atrial fibrillation ICD Codes: I48.91 - Unspecified atrial fibrillation (4) Diabetes mellitus ICD Codes: E11.9 - Diabetes mellitus Status: Chronic (5) Hypotension ICD Codes: I95.9 - Hypotension, unspecified Status: Acute (Prachi Huitron) Problem List: (1) ESRD (end stage renal disease) on dialysis ICD Codes: N18.6 - End stage renal disease; Z99.2 - Dependence on renal dialysis Plan: Patient is on hemodialysis has severe aortic stenosis, congestive heart failure, left forearm AV fistula He continued to feel weak and has severe aortic stenosis with atrial fibrillation Prognosis is guarded Encourage oral intake Blood pressure stable, HR well controlled Hgb. dropped, Epogen added 10,000 units Iron sat 25.9 with Ferritin level of 380 Seen during dialysis HD. Patient seen and examined, agree with above. Follow Hgb. (2) Aortic valvar stenosis ICD Codes: I35.0 - Nonrheumatic aortic (valve) stenosis (3) Atrial fibrillation ICD Codes: I48.91 - Unspecified atrial fibrillation (4) Diabetes mellitus ICD Codes: E11.9 - Diabetes mellitus Status: Chronic (5) Hypotension ICD Codes: I95.9 - Hypotension, unspecified Status: Acute (Quiana Mayers MD) Problem Qualifiers (1) Atrial fibrillation: Qualified Codes: I48.91 - Unspecified atrial fibrillation Prachi Huitron May 27, 2017 14:22 Quiana Mayers MD May 27, 2017 15:46
[2017-05-27] MEDS ORDERED: EPOETIN ALFA 10,000 UNITS/ML VIAL IV PUSH PRN (15:00)
[2017-05-27] MEDS: WARFARIN SOD 1 MG TAB PO SCH (18:03)
[2017-05-27] MEDS: ACETAMINOPHEN/HYDROcodone 325 MG/5 MG TAB PO PRN (23:12)
[2017-05-28] VITALS (7 sets, daily range): BP systolic 107–127; BP diastolic 50–61; PULSE 63–78; RESP 17–20; TEMP 97.2–98.4; O2SAT 97–100
[2017-05-28] MEDS: METOPROLOL TARTRATE 25 MG TAB PO SCH ×4 (01:09→16:58)
[2017-05-28] MEDS: DILTIAZEM HCL 60 MG TAB PO SCH ×3 (03:02→12:39)
[2017-05-28 06:15] LABS: INTERNATIONAL NORMALIZED RATIO 1.5 RATIO; PROTHROMBIN TIME - PATIENT 14.7 SEC (9.8-11.6)
[2017-05-28] MEDS: CHLORHEXIDINE GLUCONATE 0.12% 15 ML CUP SWISH-SPIT SCH ×3 (09:00→16:59)
[2017-05-28] MEDS: CINACALCET HYDROCHLORIDE 30 MG TAB PO SCH (10:04)
[2017-05-28] MEDS: SEVELAMER CARBONATE 800 MG TAB PO SCH ×3 (10:04→16:58)
[2017-05-28] MEDS: AMIODARONE 200 MG TAB PO SCH ×3 (10:04→16:58)
[2017-05-28] MEDS: ASPIRIN 81 MG CHEW TAB CHEW SCH (10:05)
[2017-05-28] MEDS: ALLOPURINOL 100 MG TAB PO SCH (10:05)
[2017-05-28] MEDS: SODIUM CHLORIDE 0.9% FLUSH 10 ML FLUSH IV FLUSH SCH (10:06)
--- NOTE | 2017-05-28 10:54 | HHI.PR ---
Subjective Remarks Follow-up stage renal disease hemodialysis/hypotension 05/26/17-patient seen and examined, no acute event overnight. Alert and oriented 2. Afebrile. Had hemodialysis yesterday 05/27/17-patient seen and examined, no acute event overnight. BP soft. Plan for hemodialysis today 05/28/17-patient seen and examined, stable and no complaint. Denies any shortness of breath. Objective Vitals Vital Signs Date Time Temp Pulse Resp B/P (MAP) Pulse Ox O2 Delivery O2 Flow Rate FiO2 05/28/17 08:00 98.4 71 17 124/61 (82) 100 05/28/17 04:00 75 05/28/17 04:00 Nasal Cannula 3.00 05/28/17 03:06 97.2 66 20 113/55 (74) 97 05/28/17 00:00 97.5 78 20 107/50 (69) 98 05/28/17 00:00 Blow By 3.00 05/27/17 23:49 64 05/27/17 23:14 Nasal Cannula 3.00 05/27/17 20:04 78 05/27/17 20:00 97.6 65 16 91/45 (60) 100 05/27/17 18:00 97.5 89 18 94/55 (68) 100 05/27/17 15:03 63 05/27/17 12:00 97.6 71 20 101/50 (67) 98 I/O 05/27/17 05/27/17 05/27/17 05/28/17 05/28/17 05/28/17 07:00 15:00 23:00 07:00 15:00 23:00 Intake Total 540 ml 480 ml 240 ml Output Total 1500 ml 0 ml Balance 540 ml -1020 ml 240 ml Intake Oral 540 ml 480 ml 240 ml Output Urine Total 0 ml 0 ml Hemodialysis 1500 ml # Bowel Movements 0 1 Result Diagram: 05/26/17 0520 05/24/17 0500 Objective Remarks GENERAL: NAD SKIN: Warm and dry. HEAD: Normocephalic. EYES: No scleral icterus. No injection or drainage. NECK: Supple, trachea midline. No JVD or lymphadenopathy. CARDIOVASCULAR: Regular rate and rhythm without murmurs, gallops, or rubs. RESPIRATORY: Breath sounds equal bilaterally. No accessory muscle use. GASTROINTESTINAL: Abdomen soft, non-tender, nondistended. MUSCULOSKELETAL: No cyanosis, or edema. BACK: Nontender without obvious deformity. No CVA tenderness. Procedures None A/P Assessment and Plan 76 years man with 1. Atrial fibrillation with RVR: Appreciate cardiology recommendations. -Cardizem PO 60 mg every 6 -Amiodarone 400 mg po TID per cardiology -Daily digoxin q. other day 2/2 ESRD -Coumadin -Aspirin 81 mg daily -No beta-blockers due to hypotension 2. Hypotension-Resolved 3. Severe aortic stenosis: Patient needs TAVR. Surgery on hold pending dental work. 4. Poor dentition: Patient has multiple decayed teeth. Need his teeth extracted prior to any surgical intervention (Dr. Santiago recommended OP appointment) 5. End-stage renal disease on hemodialysis: Management per nephrology. Hemodialysis per Nephrology 6. Hypertension: Continue current medications. 7. History of C. difficile: Recently treated 8. DVT prophylaxis: SCDs, Coumadin. 9. Patent foramen ovale: Continue with current anticoagulation. Jeremias Mcmillan MD May 28, 2017 10:54
--- NOTE | 2017-05-28 11:00 | HHI.DS ---
Discharge Summary Admission Date May 13, 2017 at 17:43 Discharge Date: May 28, 2017 Admitting Diagnosis A. fib with RVR, CHF, ESRD on HD (1) Atrial fibrillation ICD Code: I48.91 - Unspecified atrial fibrillation (2) ESRD (end stage renal disease) on dialysis ICD Code: N18.6 - End stage renal disease; Z99.2 - Dependence on renal dialysis Procedures None Brief History - From Admission History patient, ER physician, medication, interfere medical records. Patient's 2 sons at the bedside also provided history. Patient was recently discharged from our hospital on May 10, 2017. He was managed at that time for a similar problems. He has been at [facility] only for about 2 days and he went to his dialysis today. At, the dialysis center, his blood pressure dropped and his heart rate was noted to be in 140s to 150s. He was therefore sent to the hospital. He reports that he was there for 3 hours for dialysis. Next and there was also report from ER at that 600 cc off fluid which was removed. In the emergency room, patient was noted to be in A. fib with RVR. He does have history of chronic A. fib on Coumadin. Patient also has history of severe aortic stenosis for which she was evaluated by cardiothoracic surgeon prior. He was advised to wait on the surgery until his poor dentition was fixed and his teeth were pulled out, and his recurrent C. difficile is resolved. He is currently on by mouth vancomycin at the nursing facility for the treatment of C. difficile. Apart from this blood pressure issue, patient denies any symptoms. Specifically, patient denies any chest pain/shortness of breath was focal weakness. He denies any fever there. He denies any nausea/vomiting/diarrhea. He is aware that he has C. difficile. He denies any blood in his stool or urine. However, patient is elderly gentleman who seems to and typically his symptoms. He was even telling the ER physician that he drove himself to the dialysis center today. Son's reported that this was not true. Patient was sent from [place] to the dialysis. He has not been driving for a while. Similarly, patient looks to be quite short of breath at rest on exam. He however denies it Patient's family is frustrated about his medical condition as this is repeated episodes of fluid overload/CHF exacerbation/hypotension. All secondary to the severe aortic stenosis which is not being fixed. They have not been able to get a dentist to pull his teeth because of his insurance or detention or hospital issues. CBC/BMP: 05/26/17 0520 05/24/17 0500 Significant Findings Laboratory Tests Test 05/26/17 05:20 05/27/17 05:50 05/28/17 05:32 Red Blood Count 2.53 MIL/MM3 (4.50-5.90) Hemoglobin 8.5 GM/DL (13.0-17.0) Hematocrit 26.1 % (39.0-51.0) Mean Corpuscular Volume 103.1 FL (80.0-100.0) Red Cell Distribution Width 17.3 % (11.6-17.2) Prothrombin Time 18.8 SEC (9.8-11.6) 15.4 SEC (9.8-11.6) 14.7 SEC (9.8-11.6) Iron Level 43 MCG/DL (65-175) Total Iron Binding Capacity 167 MCG/DL (250-450) Imaging Last Impressions Chest X-Ray 05/18/17 0600 Signed Impressions: Service Date/Time: Thursday, May 18, 2017 03:32 - CONCLUSION: No significant change has occurred. Daimen Pierson MD PE at Discharge GENERAL: NAD SKIN: Warm and dry. HEAD: Normocephalic. EYES: No scleral icterus. No injection or drainage. NECK: Supple, trachea midline. No JVD or lymphadenopathy. CARDIOVASCULAR: Regular rate and rhythm without murmurs, gallops, or rubs. RESPIRATORY: Breath sounds equal bilaterally. No accessory muscle use. GASTROINTESTINAL: Abdomen soft, non-tender, nondistended. MUSCULOSKELETAL: No cyanosis, or edema. BACK: Nontender without obvious deformity. No CVA tenderness. Hospital Course While in the hospital, patient was treated for 1. Atrial fibrillation with RVR: Appreciate cardiology recommendations. -Cardizem PO 60 mg every 6 -Amiodarone 400 mg po TID per cardiology -Daily digoxin q. other day 2/2 ESRD -Coumadin -Aspirin 81 mg daily -No beta-blockers due to hypotension 2. Hypotension-Resolved 3. Severe aortic stenosis: Patient needs TAVR. Surgery on hold pending dental work. 4. Poor dentition: Patient has multiple decayed teeth. Need his teeth extracted prior to any surgical intervention (Dr. Santiago recommended OP appointment) 5. End-stage renal disease on hemodialysis: Management per nephrology. Hemodialysis per Nephrology 6. Hypertension: Continue current medications. 7. History of C. difficile: Recently treated 8. DVT prophylaxis: SCDs, Coumadin. 9. Patent foramen ovale: Continue with current anticoagulation. Pt Condition on Discharge: Stable Discharge Disposition: Discharge to SNF Discharge Time: > 30 minutes Discharge Instructions DIET: Follow Instructions for: Heart Healthy Diet, Diabetic Diet, Dialysis Diet Activities you can perform: Regular-No Restrictions Follow up Referrals: Cardiology - 1 Week Nephrology - 3-5 Days Oral Maxillary Surgery - 3-5 Days with Carlo Santiago DMD PCP Follow-up - 2-3 Days New Medications: Hydrocodone-Acetaminophen ([place]) 5 Mg-325 Mg Tab 1 TAB PO Q12HR PRN for PAIN, #10 TAB 0 Refills Amiodarone (Amiodarone) 200 Mg Tab 400 MG PO TIDPC for afib, #180 TAB Aspirin (Tgt Aspirin) 81 Mg Chw 81 MG CHEW DAILY for Blood Clot Prevention, #30 EA Digoxin (Digoxin) 0.125 Mg Tab 0.125 MG PO Q48H for afib, #30 TAB Diltiazem (Cardizem) 60 Mg Tab 60 MG PO Q6H for afib, #180 TAB Nitroglycerin SL (Nitrostat SL) 0.4 Mg Subl 0.4 MG SL UNSCH PRN for CHEST PAIN, #30 TAB Continued Medications: Allopurinol (Allopurinol) 100 Mg Tab 100 MG PO DAILY for Gout, #30 TAB 0 Refills Cinacalcet (Sensipar) 30 Mg Tab 30 MG PO DAILY, #30 TAB 0 Refills Sevelamer Carbonate (Renvela) 800 Mg Tab 2400 MG PO TID for Control phosphorous levels, #90 TAB 0 Refills Warfarin (Coumadin) 1 Mg Tab 1 MG PO DAILY@1600 for Prevent Blood Clot, #30 TAB Discontinued Medications: Metoprolol Tartrate (Lopressor) 50 Mg Tab 100 MG PO Q12HR for Regulate Heart Beat, #60 TAB Jeremias Mcmillan MD May 28, 2017 11:00
--- NOTE | 2017-05-28 14:23 | HHI.NPPN ---
Subjective General Problems: Anemia Renal Failure: End Stage Renal Disease History of Present Illness 76-year-old male known to me from before with past medical history of hypertension, diabetes mellitus, hyperlipidemia, severe aortic stenosis, atrial fibrillation, chronic anemia, who was recently discharged from the hospital and brought back because of hypotension from the dialysis. The patient has been on regular dialysis Wednesday, and Wednesday. Additional Remarks Patient is resting comfortably, no SOB, no dizziness. Condition unchanged (Prachi Huitron) Review of Systems Respiratory Respiratory Remarks Denies sob (Prachi Huitron) Gastrointestinal GI Remarks No abdominal pain (Prachi Huitron) Musculoskeletal MS Remarks back (Prachi Huitron) Objective Data Data Vital Signs Date Time Temp Pulse Resp B/P (MAP) Pulse Ox O2 Delivery O2 Flow Rate FiO2 05/28/17 12:00 97.4 63 18 127/61 (83) 100 05/28/17 08:00 98.4 71 17 124/61 (82) 100 05/28/17 08:00 Nasal Cannula 3.00 05/28/17 04:00 75 05/28/17 04:00 Nasal Cannula 3.00 05/28/17 03:06 97.2 66 20 113/55 (74) 97 05/28/17 00:00 97.5 78 20 107/50 (69) 98 05/28/17 00:00 Blow By 3.00 05/27/17 23:49 64 05/27/17 23:14 Nasal Cannula 3.00 05/27/17 20:04 78 05/27/17 20:00 97.6 65 16 91/45 (60) 100 05/27/17 18:00 97.5 89 18 94/55 (68) 100 05/27/17 15:03 63 (Prachi Huitron) -: 05/26/17 0520 05/24/17 0500 Physical Exam General Appearance: No Acute Distress, Comfortable (Prachi Huitron) Eyes Eye Exam: Pupils Equal (Prachi Huitron) Pulmonary Resp Exam: Breath Sounds Equal, No Distress, Decreased Bases, Diminished Breath Sounds (Prachi Huitron) Cardiology CV Exam: Irregular, Arrhythmia, Tachycardia (Prachi Huitron) Gastrointestinal/Abdomen GI Exam: Soft, Non-Tender, Bowel Sounds Present (Prachi Huitron) Extremeties Extremities Exam: Trace Edema (Prachi Huitron) Neurologic Neuro Exam: Alert, Awake (Prachi Huitron) Psychiatric Psych Exam: Appropriate Responses (Prachi Huitron) Assessment/Plan Assessment Summary: Hypotension, End Stage Renal Disease Problem List: (1) ESRD (end stage renal disease) on dialysis ICD Codes: N18.6 - End stage renal disease; Z99.2 - Dependence on renal dialysis Plan: Patient is on hemodialysis has severe aortic stenosis, congestive heart failure, left forearm AV fistula He continued to feel weak and has severe aortic stenosis with atrial fibrillation Prognosis is guarded Encourage oral intake Blood pressure stable, HR well controlled Hgb. dropped, Epogen added 10,000 units Iron sat 25.9 with Ferritin level of 380 Dialysis yesterday with 1500 liters removed Dialysis for tomorrow. Has been discharged to SNF (2) Aortic valvar stenosis ICD Codes: I35.0 - Nonrheumatic aortic (valve) stenosis (3) Atrial fibrillation ICD Codes: I48.91 - Unspecified atrial fibrillation (4) Diabetes mellitus ICD Codes: E11.9 - Diabetes mellitus Status: Chronic (5) Hypotension ICD Codes: I95.9 - Hypotension, unspecified Status: Acute (Prachi Huitron) Problem List: (1) ESRD (end stage renal disease) on dialysis ICD Codes: N18.6 - End stage renal disease; Z99.2 - Dependence on renal dialysis Plan: Patient is on hemodialysis has severe aortic stenosis, congestive heart failure, left forearm AV fistula He continued to feel weak and has severe aortic stenosis with atrial fibrillation Prognosis is guarded Encourage oral intake Blood pressure stable, HR well controlled Hgb. dropped, Epogen added 10,000 units Iron sat 25.9 with Ferritin level of 380 Dialysis yesterday with 1500 liters removed Dialysis for tomorrow. Has been discharged to SNF. Patient was seen and examined, agree with above. (2) Aortic valvar stenosis ICD Codes: I35.0 - Nonrheumatic aortic (valve) stenosis (3) Atrial fibrillation ICD Codes: I48.91 - Unspecified atrial fibrillation (4) Diabetes mellitus ICD Codes: E11.9 - Diabetes mellitus Status: Chronic (5) Hypotension ICD Codes: I95.9 - Hypotension, unspecified Status: Acute (Quiana Mayers MD) Problem Qualifiers (1) Atrial fibrillation: Qualified Codes: I48.91 - Unspecified atrial fibrillation Prachi Huitron May 28, 2017 14:22 Quiana Mayers MD May 28, 2017 23:08
[2017-05-28] MEDS: WARFARIN SOD 1 MG TAB PO SCH (16:59)
--- NOTE | 2017-05-28 17:32 | PD.CARD.PN ---
Subjective Subjective Remarks No chest pain/SOB Heart rates better controlled Less hypotension Objective Medications Current Medications Medications (Trade) Dose Ordered Sig/Jamal Route Start Time Stop Time Status Last Admin (NS Flush) 2 ml UNSCH PRN IV FLUSH 05/13/17 19:45 (NS Flush) 2 ml BID IV FLUSH 05/13/17 21:00 05/28/17 10:06 (Narcan Inj) 0.4 mg UNSCH PRN IV PUSH 05/13/17 19:45 (Zyloprim) 100 mg DAILY PO 05/14/17 09:00 05/28/17 10:05 (Sensipar) 30 mg DAILY PO 05/14/17 09:00 05/28/17 10:04 (Renvela) 2,400 mg TID PO 05/14/17 09:00 05/28/17 16:58 Miscellaneous Information Patient in critical care unit? Ass... Q361D .XX 05/14/17 05:30 (Aspirin Chew) 81 mg DAILY CHEW 05/14/17 09:00 05/28/17 10:05 (Brethine Inj) 1 mg UNSCH PRN SQ 05/14/17 08:00 Sodium Chloride 1,000 ml @ 0 mls/hr Q0M PRN OTHER 05/14/17 11:21 (Heparin Inj) 8,000 units UNSCH PRN IV FLUSH 05/14/17 11:30 Sodium Chloride 1,000 ml @ 200 mls/hr Q5H PRN IV 05/14/17 11:21 05/22/17 17:12 Sodium Chloride 1,000 ml @ 0 mls/hr Q0M PRN OTHER 05/14/17 11:21 (Mannitol Inj) 12.5 gm UNSCH PRN IV 05/14/17 11:30 Albumin Human 100 ml @ 60 mls/hr UNSCH PRN IV 05/14/17 11:30 05/25/17 08:45 (NS Flush) 5 ml UNSCH PRN IV FLUSH 05/14/17 11:30 (Heparin Inj) UNSCH PRN .XX 05/14/17 11:30 (Gentamicin Inj) 20 mg UNSCH PRN OTHER 05/14/17 11:30 (Zofran Inj) 4 mg UNSCH PRN IV PUSH 05/14/17 11:30 (Tylenol) 650 mg UNSCH PRN PO 05/14/17 11:30 05/21/17 00:52 (Benadryl) 25 mg UNSCH PRN PO 05/14/17 11:30 (Nitrostat Sl) 0.4 mg UNSCH PRN SL 05/14/17 11:30 (Catapres) 0.1 mg UNSCH PRN PO 05/14/17 11:30 (Gelfoam 12 Mm/7 Mm Top) 1 foam UNSCH PRN TOP 05/14/17 11:30 05/25/17 11:00 Pharmacy Profile Note 0 ml @ 0 mls/hr UNSCH OTHER 05/15/17 07:45 (Duoneb Neb) 1 ampule Q4HR NEB PRN NEB 05/15/17 07:45 (Cardizem) 60 mg Q6H PO 05/16/17 14:00 05/28/17 12:39 (Peridex 0.12% Liq) 15 ml TID SWISH-SPIT 05/16/17 13:00 05/27/17 12:16 (Lanoxin) 0.125 mg Q48H PO 05/19/17 09:00 05/27/17 09:14 (Pill Splitter) 1 ea UNSCH PRN OTHER 05/19/17 15:00 (Lopressor) 12.5 mg Q6HR PO 05/21/17 18:00 05/28/17 16:58 (Cordarone) 400 mg TIDPC PO 05/22/17 18:30 05/28/17 16:58 ([place] 5-325 Mg) 1 tab Q4HR PRN PO 05/24/17 13:00 05/27/17 23:12 (Coumadin) 0.75 mg Q24H PO 05/27/17 16:00 05/28/17 16:59 (Epogen Inj) 10,000 units UNSCH PRN IV PUSH 05/27/17 15:00 Vital Signs / I&O Vital Signs Date Time Temp Pulse Resp B/P (MAP) Pulse Ox O2 Delivery O2 Flow Rate FiO2 05/28/17 16:00 97.3 73 17 112/59 (76) 100 05/28/17 12:00 97.4 63 18 127/61 (83) 100 05/28/17 08:00 98.4 71 17 124/61 (82) 100 05/28/17 08:00 Nasal Cannula 3.00 05/28/17 04:00 75 05/28/17 04:00 Nasal Cannula 3.00 05/28/17 03:06 97.2 66 20 113/55 (74) 97 05/28/17 00:00 97.5 78 20 107/50 (69) 98 05/28/17 00:00 Blow By 3.00 05/27/17 23:49 64 05/27/17 23:14 Nasal Cannula 3.00 05/27/17 20:04 78 05/27/17 20:00 97.6 65 16 91/45 (60) 100 05/27/17 18:00 97.5 89 18 94/55 (68) 100 I/O 05/27/17 05/27/17 05/27/17 05/28/17 05/28/17 05/28/17 06:59 14:59 22:59 06:59 14:59 22:59 Intake Total 540 ml 480 ml 240 ml Output Total 1500 ml 0 ml Balance 540 ml -1020 ml 240 ml Intake Oral 540 ml 480 ml 240 ml Output Urine Total 0 ml 0 ml Hemodialysis 1500 ml # Bowel Movements 0 1 Physical Exam GENERAL: NAD, AAOx3 SKIN: Warm and dry. HEAD: Atraumatic. Normocephalic. EYES: Pupils equal and round. No scleral icterus. No injection or drainage. ENT: No nasal bleeding or discharge. Mucous membranes pink and moist. NECK: Trachea midline. No JVD. CARDIOVASCULAR: Irregularly irregular, 3/6 crescendo-decrescendo murmur to the RSB RESPIRATORY: No accessory muscle use. Clear to auscultation. Breath sounds equal bilaterally. GASTROINTESTINAL: Abdomen soft, non-tender, nondistended. Hepatic and splenic margins not palpable. MUSCULOSKELETAL: Extremities without clubbing, cyanosis, or edema. No obvious deformities. NEUROLOGICAL: Awake and alert. No obvious cranial nerve deficits. Motor grossly within normal limits. Five out of 5 muscle strength in the arms and legs. Normal speech. PSYCHIATRIC: Appropriate mood and affect; insight and judgment normal. Laboratory Laboratory Tests Test 05/28/17 05:32 Prothrombin Time 14.7 SEC Prothromb Time International Ratio 1.5 RATIO Assessment and Plan Problem List: (1) Aortic valvar stenosis ICD Codes: I35.0 - Nonrheumatic aortic (valve) stenosis (2) ESRD (end stage renal disease) on dialysis ICD Codes: N18.6 - End stage renal disease; Z99.2 - Dependence on renal dialysis (3) Atrial fibrillation ICD Codes: I48.91 - Unspecified atrial fibrillation (4) Diabetes mellitus ICD Codes: E11.9 - Diabetes mellitus Status: Chronic (5) Hypotension ICD Codes: I95.9 - Hypotension, unspecified Status: Acute (6) End stage renal disease on dialysis ICD Codes: N18.6 - End stage renal disease on dialysis; Z99.2 - Dependence on renal dialysis Status: Acute (7) CAD (coronary artery disease) ICD Codes: I25.10 - Atherosclerotic heart disease of [place] coronary artery without angina pectoris Assessment and Plan 1) Afib Heart rates controlled Con't BB/CCB/Dig Started on Amiodarone load 2) Shock Most likely cardiogenic with Afib with RVR as well as his aortic stenosis 3) Overall believe his admission is based on his Afib with RVR more than anything 4) Severe Consideration of PCI with BAV, as any time he goes into RVR he's going to become shock-like, will have to see how he does Would end up being BMS of LAD as needs dental work Eventual TAVR, will need to have dental work first but having difficulty getting Oral Maxillofacial surgery saw him and wants to see outpt For now, will control heart rates for Afib and if stable get him to rehab then to Dr. Santiago for dental work If further episodes of concern then would consider PCI and BAV, as patient was on minimal medications to control Afib when he left here last admission 5) No further cardiovascular issues, to rehab when able Amiodarone 400mg TID for 1 week (05/29/17 stop date), then change to 200mg daily Check digoxin level in 1-2 weeks 6) Cardiovascularly stable for discharge, will see PRN Problem Qualifiers (1) Atrial fibrillation: Qualified Codes: I48.91 - Unspecified atrial fibrillation Jeffrey Ortiz DO May 28, 2017 17:32
== END 2017-05-28 18:25 | DRG 308 ==
LOC: NEPE 14:30 → NEDA 17:43 → HCIS 23:06 → HIMW 05-14 05:10 → N04A 05-25 17:06
PROVIDERS: ADMIT Hospitalist; ATTEND Hospitalist
PROC: 5A1D70Z Performance of Urinary Filtration, Intermittent, Less than 6 Hours Per Day (ICD-10-PCS; principal; 2017-05-14)
PROC: 05HM33Z Insertion of Infusion Device into Right Internal Jugular Vein, Percutaneous Approach (ICD-10-PCS; 2017-05-14)
DX: I48.2 Chronic atrial fibrillation (principal); G93.41 Metabolic encephalopathy; R57.0 Cardiogenic shock; I13.2 Hypertensive heart and chronic kidney disease with heart failure and with stage 5 chronic kidney disease, or end stage renal disease; A04.72 Enterocolitis due to Clostridium difficile, not specified as recurrent; L89.153 Pressure ulcer of sacral region, stage 3; N18.6 End stage renal disease; Q61.3 Polycystic kidney, unspecified; Q21.1 Atrial septal defect; I95.3 Hypotension of hemodialysis; E11.22 Type 2 diabetes mellitus with diabetic chronic kidney disease; I08.0 Rheumatic disorders of both mitral and aortic valves; K02.9 Dental caries, unspecified; Z99.2 Dependence on renal dialysis; I50.9 Heart failure, unspecified; Z79.01 Long term (current) use of anticoagulants; M10.9 Gout, unspecified; Z85.828 Personal history of other malignant neoplasm of skin; M19.90 Unspecified osteoarthritis, unspecified site; D63.8 Anemia in other chronic diseases classified elsewhere; I25.10 Atherosclerotic heart disease of native coronary artery without angina pectoris; Z86.19 Personal history of other infectious and parasitic diseases; E78.5 Hyperlipidemia, unspecified; R79.1 Abnormal coagulation profile; R74.8 Abnormal levels of other serum enzymes
CPT/HCPCS: 36556; 36600; 71045; 76937; 80048; 80053; 80162; 80202; 82550; 82728; 82805; 83540; 83550; 83605; 83735; 84100; 84484; 85025; 85027; 85610; 85730; 87040; 87641; 87804; 90935; 93005; 94002; 94003; 96361; 96374; 96376; J0282; J1160; J1644; J2370; J2543; J3370; J7030; J7040; J7050; J7060; P9045; P9047

== ENCOUNTER 2017-06-04 15:40 | Inpatient (IN) | payer OTHER, MEDICARE ==
[~2017-06-04] VITALS: Ht 170.2 cm; Wt 72.3 kg
[2017-06-04] VITALS (14 sets, daily range): BP systolic 65–130; BP diastolic 42–73; PULSE 65–87; RESP 14–29; TEMP 97.7–99; O2SAT 93–100
[~2017-06-04 15:40] MED LIST changes: +AMIO200T PO; +ASPI81 CHEW; +DIGO0.12 PO; +DILT60TA33 PO; -METO-309 PO; +NITR0.4S SL; +NORC5TAB PO; +SEVEL800 PO; -VANC125C3 PO
--- NOTE | 2017-06-04 16:58 | PD ---
HPI Chief Complaint: Abnormal Results Time Seen by Provider: 16:57 Travel History International Travel<30 days: No Contact w/Intl Traveler<30days: No Traveled to known affect area: No History of Present Illness HPI 76-year-old male with history of CHF, A. fib, hypertension, dialysis end-stage renal disease with left AV fistula, on warfarin, presents the emergency department for evaluation of abnormal lab results. Patient comes from [facility] and INR was greater than 13 and hemoglobin low. Patient states that he has been feeling overall well. He tells me he did receive dialysis yesterday. Denies any acute pain, tells me that he has pain all over always. Denies any shortness of breath. No chest pain or tightness. No difficulty breathing. Patient has no other symptoms to report. PFSH Past Medical History Hx Anticoagulant Therapy: Yes (WARFARIN) Anemia: Yes Arthritis: Yes Asthma: No Atrial Fibrillation: Yes Blood Disorders: No Anxiety: No Depression: No Heart Rhythm Problems: No Cancer: Yes (skin cancer on R upper arm was removed 01/19) Cardiovascular Problems: Yes (CHF, AFIB, HTN, HYPOTENSION) High Cholesterol: No (pt denies high cholestrol) Chest Pain: No Congestive Heart Failure: No COPD: No Diabetes: Yes Dialysis: Yes (t, thur, sat) Endocrine: Yes Gastrointestinal Disorders: No Gout: Yes Genitourinary: Yes (dialysis ) Hypertension: Yes Immune Disorder: No Implanted Vascular Access Dvce: No Kidney Stones: No Musculoskeletal: Yes (pilonidial cyst and bilateral gout) Neurologic: No Psychiatric: No Reproductive: No Respiratory: Yes Renal Failure: Yes Sleep Apnea: No Thyroid Disease: No Past Surgical History Abdominal Surgery: No AICD: No Arteriovenous Shunt: Yes (AV FISTULA) Cardiac Surgery: No Ear Surgery: No Endocrine Surgery: No Eye Surgery: No Genitourinary Surgery: No Gynecologic Surgery: No Insulin Pump: No Joint Replacement: No Neurologic Surgery: No Oral Surgery: No Pacemaker: No Thoracic Surgery: No Other Surgery: Yes (PILONIDIAL [id number], FISTULA FOR DIALYSIS L WRIST) Social History Alcohol Use: No Tobacco Use: No Substance Use: No Allergies-Medications (Allergen,Severity, Reaction): Coded Allergies: No Known Allergies (Verified Allergy, Unknown, 06/04/17) Reported Meds & Prescriptions Reported Meds & Active Scripts Active Amiodarone (Amiodarone HCl) 200 Mg Tab 400 Mg PO TIDPC [place] (Hydrocodone-Acetaminophen) 5 Mg-325 Mg Tab 1 Tab PO Q12HR PRN Tgt Aspirin (Aspirin) 81 Mg Chw 81 Mg CHEW DAILY Cardizem (Diltiazem HCl) 60 Mg Tab 60 Mg PO Q6H Nitrostat SL (Nitroglycerin) 0.4 Mg Subl 0.4 Mg SL UNSCH PRN Digoxin 0.125 Mg Tab 0.125 Mg PO Q48H Coumadin (Warfarin) 1 Mg Tab 1 Mg PO DAILY@1600 Reported Renvela (Sevelamer Carbonate) 800 Mg Tab 2,400 Mg PO TID Allopurinol 100 Mg Tab 100 Mg PO DAILY Sensipar (Cinacalcet) 30 Mg Tab 30 Mg PO DAILY Review of Systems Except as stated in HPI: all other systems reviewed are Neg Physical Exam Narrative GENERAL: Chronically ill-appearing male patient, lying in bed, in no acute distress. SKIN: Focused skin assessment warm/dry. 15 cm in diameter pressure ulcer on the buttock. There is a central opening 7 cm x 3 cm with yellow slough. This area is unstageable. There are 2 other open areas on either side of this that are about 4 cm x 2 cm, stage II pressure ulcers. HEAD: Atraumatic. Normocephalic. EYES: Pupils equal and round. No scleral icterus. No injection or drainage. ENT: No nasal bleeding or discharge. Mucous membranes pink and moist. NECK: Trachea midline. No JVD. CARDIOVASCULAR: Elevated rate, irregular rhythm. RESPIRATORY: No accessory muscle use. Diminished, coarse. Breath sounds equal bilaterally. GASTROINTESTINAL: Abdomen soft, non-tender, nondistended. Hepatic and splenic margins not palpable. RECTAL EXAM: No masses or tenderness, stool is black and tarry. MUSCULOSKELETAL: No obvious deformities. No clubbing. No cyanosis. 2+ pitting edema in all extremities. Left forearm AV fistula. Positive thrill and bruit. NEUROLOGICAL: Awake and alert. No obvious cranial nerve deficits. Motor grossly within normal limits. Normal speech. PSYCHIATRIC: Appropriate mood and affect; insight and judgment normal. Data Data Last Documented VS Vital Signs Date Time Temp Pulse Resp B/P (MAP) Pulse Ox O2 Delivery O2 Flow Rate FiO2 06/04/17 18:10 98.0 69 18 99/50 (66) 99 Nasal Cannula 3.00 Orders Orders Complete Blood Count With Diff (06/04/17 17:38) Comprehensive Metabolic Panel (06/04/17 17:38) B-Type Natriuretic Peptide (06/04/17 17:38) Act Partial Throm Time (Ptt) (06/04/17 17:38) Prothrombin Time / Inr (Pt) (06/04/17 17:38) Iv Access Insert/Monitor (06/04/17 17:38) Electrocardiogram (06/04/17 17:38) Ecg Monitoring (06/04/17 17:38) Oximetry (06/04/17 17:38) Oxygen Administration (06/04/17 17:38) Chest, Single Ap (06/04/17 17:38) Sodium Chloride 0.9% Flush (Ns Flush) (06/04/17 17:45) Red Blood Cells (Rbc) (06/04/17 19:28) Sodium Chlor 0.9% 250 Ml Inj (Ns 250 Ml (06/04/17 19:30) Phytonadione Inj (Vitamin K Inj) (06/04/17 19:30) Type And Screen (06/04/17 19:28) Sodium Chloride 0.9... W/Pantoprazole In (06/04/17 19:39) Sodium Chloride 0.9... W/Pantoprazole In (06/04/17 19:39) Fresh Frozen Plasma (Ffp) (06/04/17 19:42) Consult Nephrology (06/04/17 ) Labs Laboratory Tests Test 06/04/17 17:48 White Blood Count 6.0 TH/MM3 Red Blood Count 1.90 MIL/MM3 Hemoglobin 6.5 GM/DL Hematocrit 20.2 % Mean Corpuscular Volume 105.9 FL Mean Corpuscular Hemoglobin 34.1 PG Mean Corpuscular Hemoglobin Concent 32.3 % Red Cell Distribution Width 19.1 % Platelet Count 217 TH/MM3 Mean Platelet Volume 9.5 FL Neutrophils (%) (Auto) 80.6 % Lymphocytes (%) (Auto) 6.2 % Monocytes (%) (Auto) 10.4 % Eosinophils (%) (Auto) 2.2 % Basophils (%) (Auto) 0.6 % Neutrophils # (Auto) 4.9 TH/MM3 Lymphocytes # (Auto) 0.4 TH/MM3 Monocytes # (Auto) 0.6 TH/MM3 Eosinophils # (Auto) 0.1 TH/MM3 Basophils # (Auto) 0.0 TH/MM3 CBC Comment DIFF FINAL Differential Comment Prothrombin Time 135.2 SEC Prothromb Time International Ratio 13.6 RATIO Activated Partial Thromboplast Time 47.1 SEC Blood Urea Nitrogen 41 MG/DL Creatinine 3.36 MG/DL Random Glucose 92 MG/DL Total Protein 5.8 GM/DL Albumin 2.8 GM/DL Calcium Level 10.4 MG/DL Alkaline Phosphatase 97 U/L Aspartate Amino Transf (AST/SGOT) 29 U/L Alanine Aminotransferase (ALT/SGPT) 37 U/L Total Bilirubin 0.5 MG/DL Sodium Level 140 MEQ/L Potassium Level 4.7 MEQ/L Chloride Level 102 MEQ/L Carbon Dioxide Level 29.8 MEQ/L Anion Gap 8 MEQ/L Estimat Glomerular Filtration Rate 18 ML/MIN [facility] Medical Decision Making Medical Screen Exam Complete: Yes Emergency Medical Condition: Yes Medical Record Reviewed: Yes Differential Diagnosis GI bleed upper versus lower versus pneumonia versus CHF exacerbation versus electrolyte abnormality versus supratherapeutic INR Narrative Course 76-year-old male who appears chronically ill presents emergency department from [facility] for evaluation of abnormal lab work. Patient has generalized 2+ edema. He has a large pressure ulcer on his buttocks. Patient is Hemoccult positive. Laboratory Tests Test 06/04/17 17:48 White Blood Count 6.0 TH/MM3 Red Blood Count 1.90 MIL/MM3 Hemoglobin 6.5 GM/DL Hematocrit 20.2 % Mean Corpuscular Volume 105.9 FL Mean Corpuscular Hemoglobin 34.1 PG Mean Corpuscular Hemoglobin Concent 32.3 % Red Cell Distribution Width 19.1 % Platelet Count 217 TH/MM3 Mean Platelet Volume 9.5 FL Neutrophils (%) (Auto) 80.6 % Lymphocytes (%) (Auto) 6.2 % Monocytes (%) (Auto) 10.4 % Eosinophils (%) (Auto) 2.2 % Basophils (%) (Auto) 0.6 % Neutrophils # (Auto) 4.9 TH/MM3 Lymphocytes # (Auto) 0.4 TH/MM3 Monocytes # (Auto) 0.6 TH/MM3 Eosinophils # (Auto) 0.1 TH/MM3 Basophils # (Auto) 0.0 TH/MM3 CBC Comment DIFF FINAL Differential Comment Prothrombin Time 135.2 SEC Prothromb Time International Ratio 13.6 RATIO Activated Partial Thromboplast Time 47.1 SEC Blood Urea Nitrogen 41 MG/DL Creatinine 3.36 MG/DL Random Glucose 92 MG/DL Total Protein 5.8 GM/DL Albumin 2.8 GM/DL Calcium Level 10.4 MG/DL Alkaline Phosphatase 97 U/L Aspartate Amino Transf (AST/SGOT) 29 U/L Alanine Aminotransferase (ALT/SGPT) 37 U/L Total Bilirubin 0.5 MG/DL Sodium Level 140 MEQ/L Potassium Level 4.7 MEQ/L Chloride Level 102 MEQ/L Carbon Dioxide Level 29.8 MEQ/L Anion Gap 8 MEQ/L Estimat Glomerular Filtration Rate 18 ML/MIN Chest x-ray shows cardiomegaly, moderate to severe pulmonary edema. There is stable bilateral pleural effusions. I have discussed the patient with my attending physician Dr. Noland who is also assessed the patient and reviewed the findings. Call has been placed to pastry sous chef credit verification clerk Dr. Winters. Patient will be admitted to the [facility] and receive dialysis and blood transfusion as well as FFP this evening. HemaPrompt Point of Care Fecal Specimen Occult Blood: Positive Diagnosis Primary Impression: GI bleed Qualified Codes: K92.2 - Gastrointestinal hemorrhage, unspecified Additional Impressions: Anemia Qualified Codes: D64.9 - Anemia, unspecified ESRD (end stage renal disease) on dialysis Lower extremity edema Pulmonary edema Qualified Codes: J81.0 - Acute pulmonary edema Hypotension Qualified Codes: I95.9 - Hypotension, unspecified Left upper extremity swelling Admitting Information Admitting Physician Requests: Admit Condition: Stable Kathleen Gonzalez Jun 04, 2017 16:58
[2017-06-04] MEDS ORDERED: SODIUM CHLORIDE 0.9% FLUSH 10 ML FLUSH IVF PRN (17:45)
--- NOTE | 2017-06-04 18:20 | RADRPT ---
EXAM DATE/TIME: 06/04/2017 17:44 [place] COMPARISON: CHEST SINGLE AP, May 18, 2017, 3:32. INDICATIONS : Shortness of breath. MEDICAL HISTORY : Hypertension. Dialysis. SURGICAL HISTORY : AV fistula. Pilonidal cyst ENCOUNTER: Initial ACUITY: 1 day PAIN SCORE: 0/10 LOCATION: Bilateral chest FINDINGS: The heart is enlarged. Moderate to severe pulmonary edema is noted. Bilateral pleural effusions are s table. CONCLUSION: Cardiomegaly. Moderate to severe pulmonary edema. Stable bilateral pleural effusions. Georges Mcdermott MD on June 04, 2017 at 18:18 Board Certified Radiologist. This report was verified electronically.
[2017-06-04 19:12] LABS: PROTHROMBIN TIME - PATIENT 135.2 SEC (9.8-11.6)
[2017-06-04 19:13] LABS: AUTOMATED NEUTROPHIL # 4.9 TH/MM3 (1.8-7.7); BASOPHIL % 0.6 % (0.0-2.0); EOSINOPHIL # 0.1 TH/MM3 (0-0.4); EOSINOPHIL % 2.2 % (0.0-4.0); LYMPH % 6.2 % (9.0-44.0); LYMPHOCYTE # 0.4 TH/MM3 (1.0-4.8); MEAN CELL VOLUME 105.9 FL (80.0-100.0); MEAN CORPUSCULAR HEMOGLOBIN 34.1 PG (27.0-34.0); MEAN CORPUSCULAR HGB CONC 32.3 % (32.0-36.0); MEAN PLATELET VOLUME 9.5 FL (7.0-11.0); MONO % 10.4 % (0.0-8.0); MONOCYTE # 0.6 TH/MM3 (0-0.9); NEUT % 80.6 % (16.0-70.0); PLATELET COUNT 217 TH/MM3 (150-450); RED CELL DISTRIBUTION WIDTH 19.1 % (11.6-17.2)
[2017-06-04 19:19] LABS: HEMATOCRIT 20.2 % (39.0-51.0); HEMOGLOBIN 6.5 GM/DL (13.0-17.0)
[2017-06-04 19:20] LABS: INTERNATIONAL NORMALIZED RATIO 13.6 RATIO
[2017-06-04 19:30] LABS: ALBUMIN 2.8 GM/DL (3.4-5.0); ALT (GPT) 37 U/L (12-78); AST (GOT) 29 U/L (15-37); BICARBONATE 29.8 MEQ/L (21.0-32.0); BLOOD UREA NITROGEN 41 MG/DL (7-18); CALCIUM 10.4 MG/DL (8.5-10.1); CHLORIDE 102 MEQ/L (98-107); CREATININE 3.36 MG/DL (0.60-1.30); GLOMERULAR FILTRATION RATE 18 ML/MIN (>89); GLUCOSE,RANDOM 92 MG/DL (74-106); SODIUM (NA) 140 MEQ/L (136-145)
[2017-06-04] MEDS ORDERED: PHYTONADIONE 10 MG/ML VIAL SQ ONE (19:30)
[2017-06-04] MEDS ORDERED: SODIUM CHLOR 0.9% 250 ML INJ 250 ML IV ONE (19:30)
[2017-06-04 19:33] LABS: ALKALINE PHOSPHATASE 97 U/L (45-117); TOTAL BILIRUBIN ADULT 0.5 MG/DL (0.2-1.0); TOTAL PROTEIN 5.8 GM/DL (6.4-8.2)
[2017-06-04] MEDS ORDERED: PANTOPRAZOLE INJ 80 MG in SODIUM CHLORIDE 0.9% INJ 35 ML IV ONE (19:39)
--- NOTE | 2017-06-04 20:15 | PD ---
Physical Exam Narrative GENERAL: 76 y/o male who is pale SKIN: Focused skin assessment warm/dry. HEAD: Atraumatic. Normocephalic. EYES: No scleral icterus. No injection or drainage. ENT: No nasal bleeding or discharge. Mucous membranes pink and moist. NECK: Trachea midline. RESPIRATORY: No accessory muscle use. NEUROLOGICAL: Awake and alert. moves all extremities. Normal speech. Data Data Last Documented VS Vital Signs Date Time Temp Pulse Resp B/P (MAP) Pulse Ox O2 Delivery O2 Flow Rate FiO2 06/04/17 18:10 98.0 69 18 99/50 (66) 99 Nasal Cannula 3.00 Orders Orders Complete Blood Count With Diff (06/04/17 17:38) Comprehensive Metabolic Panel (06/04/17 17:38) B-Type Natriuretic Peptide (06/04/17 17:38) Act Partial Throm Time (Ptt) (06/04/17 17:38) Prothrombin Time / Inr (Pt) (06/04/17 17:38) Iv Access Insert/Monitor (06/04/17 17:38) Electrocardiogram (06/04/17 17:38) Ecg Monitoring (06/04/17 17:38) Oximetry (06/04/17 17:38) Oxygen Administration (06/04/17 17:38) Chest, Single Ap (06/04/17 17:38) Sodium Chloride 0.9% Flush (Ns Flush) (06/04/17 17:45) Red Blood Cells (Rbc) (06/04/17 19:28) Sodium Chlor 0.9% 250 Ml Inj (Ns 250 Ml (06/04/17 19:30) Phytonadione Inj (Vitamin K Inj) (06/04/17 19:30) Type And Screen (06/04/17 19:28) Sodium Chloride 0.9... W/Pantoprazole In (06/04/17 19:39) Sodium Chloride 0.9... W/Pantoprazole In (06/04/17 19:39) Fresh Frozen Plasma (Ffp) (06/04/17 19:42) Consult Nephrology (06/04/17 ) Admit Order (Ed Use Only) (06/04/17 20:06) Labs Laboratory Tests Test 06/04/17 17:48 White Blood Count 6.0 TH/MM3 Red Blood Count 1.90 MIL/MM3 Hemoglobin 6.5 GM/DL Hematocrit 20.2 % Mean Corpuscular Volume 105.9 FL Mean Corpuscular Hemoglobin 34.1 PG Mean Corpuscular Hemoglobin Concent 32.3 % Red Cell Distribution Width 19.1 % Platelet Count 217 TH/MM3 Mean Platelet Volume 9.5 FL Neutrophils (%) (Auto) 80.6 % Lymphocytes (%) (Auto) 6.2 % Monocytes (%) (Auto) 10.4 % Eosinophils (%) (Auto) 2.2 % Basophils (%) (Auto) 0.6 % Neutrophils # (Auto) 4.9 TH/MM3 Lymphocytes # (Auto) 0.4 TH/MM3 Monocytes # (Auto) 0.6 TH/MM3 Eosinophils # (Auto) 0.1 TH/MM3 Basophils # (Auto) 0.0 TH/MM3 CBC Comment DIFF FINAL Differential Comment Prothrombin Time 135.2 SEC Prothromb Time International Ratio 13.6 RATIO Activated Partial Thromboplast Time 47.1 SEC Blood Urea Nitrogen 41 MG/DL Creatinine 3.36 MG/DL Random Glucose 92 MG/DL Total Protein 5.8 GM/DL Albumin 2.8 GM/DL Calcium Level 10.4 MG/DL Alkaline Phosphatase 97 U/L Aspartate Amino Transf (AST/SGOT) 29 U/L Alanine Aminotransferase (ALT/SGPT) 37 U/L Total Bilirubin 0.5 MG/DL Sodium Level 140 MEQ/L Potassium Level 4.7 MEQ/L Chloride Level 102 MEQ/L Carbon Dioxide Level 29.8 MEQ/L Anion Gap 8 MEQ/L Estimat Glomerular Filtration Rate 18 ML/MIN B-Type Natriuretic Peptide 1209 PG/ML [facility] Supervised Visit with FANI: Yes Interpretation(s) CBC & BMP Diagram 06/04/17 17:48 Total Protein 5.8 L, Albumin 2.8 L, Calcium Level 10.4 H, Alkaline Phosphatase 97, Aspartate Amino Transf (AST/SGOT) 29, Alanine Aminotransferase (ALT/SGPT) 37 , Total Bilirubin 0.5 Narrative Course I, Dr. lee, have reviewed the advance practice practitioner's documentation and am in agreement, met with the patient face to face, made the diagnosis, and the medical decision making was done by me. *My assessment and Findings: Patient has supratherapeutic INR and critical anemia with GI bleed as source. He has black tarry stools that are guaiac positive. Patient is developing hypotension and his electronic resources librarian will help coordinate dialysis for transfusion of blood and FFP. He will be monitored closely in the ICU and be given additionally vitamin K and Protonix. Critical Care Narrative Aggregate critical care time was 35 minutes. Time to perform other separately billable procedures was not included in the critical care time. My time did not include minutes spent treating any other patients simultaneously or on activities that did not directly contribute to the patient's treatment. The services I provided to this patient were to treat and/or prevent clinically significant deterioration that could result in: Hemorrhagic shock, I provided critical care services requiring my management, as noted below: Chart data review, documentation time, medication orders and management, vital sign assessments/reviewing monitor data, ordering and reviewing lab tests, ordering and interpreting/reviewing x-rays and diagnostic studies, care of the patient and discussion of the patient with the admitting physicians. Diagnosis Primary Impression: GI bleed Qualified Codes: K92.2 - Gastrointestinal hemorrhage, unspecified Additional Impressions: Anemia Qualified Codes: D64.9 - Anemia, unspecified Pulmonary edema Qualified Codes: J81.0 - Acute pulmonary edema Left upper extremity swelling Lower extremity edema ESRD (end stage renal disease) on dialysis Hypotension Qualified Codes: I95.9 - Hypotension, unspecified Supratherapeutic INR Admitting Information Admitting Physician Requests: Admit Condition: Stable Billie Lee MD Jun 04, 2017 20:15
[2017-06-04] MEDS ORDERED: RESP: ALBUTEROL 2.5 MG/IPRATROPIUM 0.5 MG NEB (PRN) INH (20:30)
[2017-06-04] MEDS ORDERED: MISCELLANEOUS NURSING INFORMATION XX SCH (20:30)
[2017-06-04] MEDS ORDERED: CHLORHEXIDINE GLUCONATE 2 % 1 PACK (2 CLOTHS) TOP PRN (20:30)
[2017-06-04] MEDS ORDERED: PROTHROMBIN COMPLEX CONC INJ 2,000 UNITS in SYRINGE/BAG 1 EA IV ONE (21:00)
--- NOTE | 2017-06-04 22:28 | HHI.HP ---
HPI Service Critical Care Medicine Primary Care Physician Unknown Admission Diagnosis gi bleed, anemia, supratherapeutic INR Diagnosis: (1) Hypotension Diagnosis: Principal (2) Coagulopathy Diagnosis: Principal (3) Acute exacerbation of CHF (congestive heart failure) Diagnosis: Principal (4) Pulmonary edema Diagnosis: Principal (5) GI bleed Diagnosis: Principal (6) Anemia Diagnosis: Principal (7) Supratherapeutic INR Diagnosis: Principal (8) Atrial fibrillation Diagnosis: Principal (9) End stage renal disease on dialysis Diagnosis: Principal (10) CAD (coronary artery disease) Diagnosis: Principal (11) DM2 (diabetes mellitus, type 2) Diagnosis: Principal (12) Hypertension Diagnosis: Secondary (13) Severe aortic valve stenosis Diagnosis: Secondary (14) C. difficile diarrhea Diagnosis: Secondary Chief Complaint: Severe coagulopathy INR of 13.6 Anemia requiring transfusion Travel History International Travel<30 Days: No Contact w/Intl Traveler <30 Da: No Traveled to Known Affected Are: No History of Present Illness Patient is a 76-year-old male with past medical history significant for severe aortic stenosis (peak 94, mean 55, NATA 0.5), recurrent congestive heart failure, coronary artery disease with LAD lesion, hypertension, on dialysis for end-stage renal disease, atrial fibrillation on warfarin, who was sent to the emergency department from [facility] for INR>13 and hemoglobin low. He denied any chest pain or dizziness, further ER workup revealed he had a hemoglobin of 6.5 INR was 13.6. BNP was elevated at 1209. Chest x-ray showed severe pulmonary vascular congestion and bilateral effusions. Patient has severe aortic stenosis, and had been seen by Dr. Ortiz and cardiothoracic surgeon Dr. Nielson before, plan is for PCI and TAVR once stable and prior to that patient needed teeth extracted, and was to follow up as OP with Dr. Santiago. Given GI bleed and anemia patient is receiving 2 units of PRBC , 2 units of FFP already received vitamin K 10 mg IV. I have also ordered Kcentra as he is hemodynamically unstable, and due to end-stage renal disease will not be able to handle multiple units of FFP. Nephrology Dr. Winters had been contacted, due to pulmonary edema patient will get stat hemodialysis and received blood products at the same time I evaluated the patient in the ICU. Patient is just starting to receive Kcentra. Hemodialysis is about the start blood pressure is low systolic blood pressure 65-70. I will start Yosef-Synephrine to maintain map about 65 and to facilitate hemodialysis, transfuse blood products. Patient's prognosis is guarded. He is mildly encephalopathic at this time Review of Systems ROS Limitations: Clinical Condition, Altered Mental Status Past Family Social History Allergies: Coded Allergies: No Known Allergies (Verified Allergy, Unknown, 06/04/17) Past Medical History Hypertension Type 2 diabetes Hypelipidemia Patent foramen ovale Severe Aortic Stenosis awaiting on surgery Atrial fibrillation End-stage renal disease on hemodialysis. Tuesdays//Saturdays Frequent syncopal episodes secondary to severe aortic stenosis Anemia of chronic disease Poor dentition C. difficile Past Surgical History AV Fistula Pilonidal Cyst Reported Medications Amiodarone (Amiodarone HCl) 200 Mg Tab 400 Mg PO TIDPC [place] (Hydrocodone-Acetaminophen) 5 Mg-325 Mg Tab 1 Tab PO Q12HR PRN Tgt Aspirin (Aspirin) 81 Mg Chw 81 Mg CHEW DAILY Cardizem (Diltiazem HCl) 60 Mg Tab 60 Mg PO Q6H Nitrostat SL (Nitroglycerin) 0.4 Mg Subl 0.4 Mg SL UNSCH PRN Digoxin 0.125 Mg Tab 0.125 Mg PO Q48H Coumadin (Warfarin) 1 Mg Tab 1 Mg PO DAILY@1600 Renvela (Sevelamer Carbonate) 800 Mg Tab 2,400 Mg PO TID Allopurinol 100 Mg Tab 100 Mg PO DAILY Sensipar (Cinacalcet) 30 Mg Tab 30 Mg PO DAILY Active Ordered Medications Reviewed Family History Unable to obtain due to clinical condition Social History Denies alcohol or tobacco use Physical Exam Vital Signs Vital Signs Date Time Temp Pulse Resp B/P (MAP) Pulse Ox O2 Delivery O2 Flow Rate FiO2 06/04/17 20:44 69 16 91/42 (58) 100 Nasal Cannula 3.00 06/04/17 18:10 98.0 69 18 99/50 (66) 99 Nasal Cannula 3.00 06/04/17 17:42 97 Nasal Cannula 3.00 06/04/17 17:42 77 17 97 Nasal Cannula 3.00 06/04/17 17:00 97.8 65 18 98/55 (69) 97 Nasal Cannula 3.00 06/04/17 15:47 99.0 70 23 130/73 (92) 97 Physical Exam GENERAL: Chronically ill-appearing male patient, lying in bed, in no acute distress. SKIN: Multiple pressure ulcers 15 cm in diameter pressure ulcer on the buttock, two other open areas on either side HEAD: Atraumatic. Normocephalic. EYES: Pupils equal and round. No scleral icterus. No injection or drainage. ENT: No nasal bleeding or discharge. Mucous membranes dry pale NECK: Trachea midline. No JVD. CARDIOVASCULAR: Elevated rate, irregular rhythm. Atrial fibrillation on monitor. Systolic murmur best heard in the left sternal border RESPIRATORY: No accessory muscle use. Diminished breath sounds equal bilaterally. GASTROINTESTINAL: Abdomen soft, non-tender, nondistended. RECTAL EXAM in ED: Stool occult blood positive MUSCULOSKELETAL: Left forearm AV fistula. Positive thrill and bruit. NEUROLOGICAL: Awake and alert. Speech is soft and mumbled. Motor grossly within normal limits. Laboratory Laboratory Tests Test 06/04/17 17:48 White Blood Count 6.0 Red Blood Count 1.90 Hemoglobin 6.5 Hematocrit 20.2 Mean Corpuscular Volume 105.9 Mean Corpuscular Hemoglobin 34.1 Mean Corpuscular Hemoglobin Concent 32.3 Red Cell Distribution Width 19.1 Platelet Count 217 Mean Platelet Volume 9.5 Neutrophils (%) (Auto) 80.6 Lymphocytes (%) (Auto) 6.2 Monocytes (%) (Auto) 10.4 Eosinophils (%) (Auto) 2.2 Basophils (%) (Auto) 0.6 Neutrophils # (Auto) 4.9 Lymphocytes # (Auto) 0.4 Monocytes # (Auto) 0.6 Eosinophils # (Auto) 0.1 Basophils # (Auto) 0.0 CBC Comment DIFF FINAL Differential Comment Prothrombin Time 135.2 Prothromb Time International Ratio 13.6 Activated Partial Thromboplast Time 47.1 Blood Urea Nitrogen 41 Creatinine 3.36 Random Glucose 92 Total Protein 5.8 Albumin 2.8 Calcium Level 10.4 Alkaline Phosphatase 97 Aspartate Amino Transf (AST/SGOT) 29 Alanine Aminotransferase (ALT/SGPT) 37 Total Bilirubin 0.5 Sodium Level 140 Potassium Level 4.7 Chloride Level 102 Carbon Dioxide Level 29.8 Anion Gap 8 Estimat Glomerular Filtration Rate 18 B-Type Natriuretic Peptide 1209 Result Diagram: 06/04/17 1744 06/04/17 1748 Imaging Chest x-ray shows bilateral pulmonary edema, pleural effusion Septic Shock Reassessment Septic shock perfusion: reassessment completed Caprini VTE Risk Assessment Caprini VTE Risk Assessment: Mod/High Risk (score >= 2) VTE Pharm Contraindication: Coagulopathy,INR elevated Caprini Risk Assessment Model Point Value = 1 Point Value = 2 Point Value = 3 Point Value = 5 Age 41-60 Minor surgery BMI > 25 kg/m2 Swollen legs Varicose veins or History of unexplained or recurrent spontaneous Oral contraceptives or hormone replacement Sepsis (< 1 month) Serious lung disease, including pneumonia (< 1 month) Abnormal pulmonary function Acute myocardial infarction Congestive heart failure (< 1 month) History of inflammatory bowel disease Medical patient at bed rest Age 61-74 Arthroscopic surgery Major open surgery (> 45 min) Laparoscopic surgery (> 45 min) Malignancy Confined to bed (> 72 hours) Immobilizing plaster cast Central venous access Age >= 75 History of VTE Family history of VTE Factor V Leiden Prothrombin [id number] Lupus anticoagulant Anticardiolipin antibodies Elevated serum homocysteine Heparin-induced thrombocytopenia Other congenital or acquired thrombophilia Stroke (< 1 month) Elective arthroplasty Hip, pelvis, or leg fracture Acute spinal cord injury (< 1 month) Prophylaxis Regimen Total Risk Factor Score Risk Level Prophylaxis Regimen 0-1 Low Early ambulation 2 Moderate Order ONE of the following: *Sequential Compression Device (SCD) *Heparin 5000 units SQ BID 3-4 Higher Order ONE of the following medications: *Heparin 5000 units SQ TID *Enoxaparin/Lovenox 40 mg SQ daily (WT < 150 kg, CrCl > 30 mL/min) *Enoxaparin/Lovenox 30 mg SQ daily (WT < 150 kg, CrCl > 10-29 mL/min) *Enoxaparin/Lovenox 30 mg SQ BID (WT < 150 kg, CrCl > 30 mL/min) AND/OR *Sequential Compression Device (SCD) 5 or more Highest Order ONE of the following medications: *Heparin 5000 units SQ TID (Preferred with Epidurals) *Enoxaparin/Lovenox 40 mg SQ daily (WT < 150 kg, CrCl > 30 mL/min) *Enoxaparin/Lovenox 30 mg SQ daily (WT < 150 kg, CrCl > 10-29 mL/min) *Enoxaparin/Lovenox 30 mg SQ BID (WT < 150 kg, CrCl > 30 mL/min) AND *Sequential Compression Device (SCD) Assessment and Plan Assessment and Plan ASSESSMENT: Coagulopathy, INR 13.6 GI bleed Anemia requiring transfusion Hypotension Acute exacerbation of congestive heart failure Elevated BNP Severe aortic stenosis (peak 94, mean 55, NATA 0.5) Bilateral pleural effusion secondary to CHF CAD with LAD lesion End-stage renal disease on hemodialysis Recent C. difficile colitis Diabetes Hypertension Chronic atrial fibrillation PLAN: NEURO: -Minimize all sedation -Monitor neuro status closely RESP: -Nasal cannula oxygen to keep oxygen saturation above 90% -DuoNeb every 6 hours as needed -Bilateral pleural effusion secondary to CHF, fluid removal with dialysis -Repeat chest x-ray in am CV: -Yosef-Synephrine to keep MAP >65 -Hold Cardizem PO 60 mg every 6, Hold Coumadin. Hold aspirin -Continue digoxin -Cardiology Dr. Ortiz. Evaluated for PCI/TAVR. Need his teeth extracted prior to any surgical intervention -Dr. Santiago was consulted last admission and recommended OP appointment GI: -NPO, IV Protonix : -End-stage renal disease on hemodialysis -Nephrology Dr. Winters -Getting HD now for fluid removal ID: -Monitor for infection HEME: -Receiving K Centra 2000 units STAT -Give 2 units PRBC, 2 units of FFP -Vitamin K 10 mg IV 1 -Monitor CBC, CMP, INR -Holding Coumadin and aspirin ENDO: -Monitor electrolytes closely PROPH: -Bilateral lower extremity SCDs. Hold Coumadin, IV Protonix LINES: - Utilize PIV central line if needed CCT 45 Code Status Full Discussed Condition With Bedside RN, ED CASHIER MANAGER Problem Qualifiers (1) Hypotension: Qualified Codes: I95.9 - Hypotension, unspecified (2) Pulmonary edema: Qualified Codes: J81.0 - Acute pulmonary edema (3) GI bleed: Qualified Codes: K92.2 - Gastrointestinal hemorrhage, unspecified (4) Anemia: Qualified Codes: D64.9 - Anemia, unspecified (5) Hypertension: Qualified Codes: I10 - Essential (primary) hypertension Mendoza Navarrete MD Jun 04, 2017 22:28
[2017-06-04] MEDS ORDERED: TERBUTALINE INJ 1 MG/ML AMP SQ PRN (22:30)
[2017-06-04] MEDS: PANTOPRAZOLE INJ 80 MG in SODIUM CHLORIDE 0.9% INJ 100 ML IV SCH (22:32)
[2017-06-04] MEDS ORDERED: SODIUM CHLOR 0.9% 1000 ML INJ 1,000 ML IV PRN (22:37)
[2017-06-04] MEDS ORDERED: SODIUM CHLOR 0.9% 1000 ML INJ 1,000 ML OTHER PRN ×2 (22:37)
[2017-06-04] MEDS ORDERED: cloNIDine HCL 0.1 MG TAB PO PRN (22:45)
[2017-06-04] MEDS ORDERED: EPOETIN ALFA 10,000 UNITS/ML VIAL IV PUSH PRN (22:45)
[2017-06-04] MEDS ORDERED: HEPARIN SODIUM - IV 10,000 UNITS/10 ML VIAL PRN (22:45)
[2017-06-04] MEDS ORDERED: HEPARIN SODIUM - IV 10,000 UNITS/10 ML VIAL IV FLUSH PRN (22:45)
[2017-06-04] MEDS ORDERED: diphenhydrAMINE HCL 25 MG CAP PO PRN (22:45)
[2017-06-04] MEDS ORDERED: ONDANSETRON HCL 4 MG/2 ML VIAL IV PUSH PRN (22:45)
[2017-06-04] MEDS ORDERED: NITROGLYCERIN 0.4 MG SL 25 TABS/BTL SL PRN (22:45)
[2017-06-04] MEDS ORDERED: ACETAMINOPHEN 325 MG TAB PO PRN (22:45)
[2017-06-04] MEDS ORDERED: SODIUM CHLORIDE 0.9% FLUSH 10 ML FLUSH IV FLUSH PRN (22:45)
[2017-06-04] MEDS ORDERED: MANNITOL 12.5 GM/50 ML VIAL IV PRN (22:45)
[2017-06-04] MEDS ORDERED: GENTAMICIN SULFATE 20 MG/2 ML VIAL OTHER PRN (22:45)
[2017-06-04] MEDS: DIGOXIN 0.125 MG TAB PO SCH (23:00)
[2017-06-04] MEDS: PHENYLEPHRINE INJ 160 MG in DEXTROSE 5% IN WATE 500 ML INJ 484 ML IV PRN ×2 (23:28)
[2017-06-05] VITALS (26 sets, daily range): BP systolic 84–140; BP diastolic 42–69; PULSE 63–87; RESP 17–30; TEMP 97.2–98.9; O2SAT 88–100
[2017-06-05] MEDS: GELATIN 12 MM/7 MM FOAM TOP PRN (00:18)
[2017-06-05] MEDS: ALBUMIN 25% INJ 100 ML IV PRN ×2 (00:18→00:19)
[2017-06-05 01:22] LABS: HEMATOCRIT 29.8 % (39.0-51.0)
[2017-06-05 02:19] LABS: INTERNATIONAL NORMALIZED RATIO 1.5 RATIO; PROTHROMBIN TIME - PATIENT 15.6 SEC (9.8-11.6)
[2017-06-05] MEDS: CHLORHEXIDINE GLUCONATE 2 % 1 PACK (2 CLOTHS) TOP SCH (03:04)
--- NOTE | 2017-06-05 05:27 | RADRPT ---
EXAM DATE/TIME: 06/05/2017 04:08 [place] COMPARISON: CHEST SINGLE AP, June 04, 2017, 17:44. INDICATIONS : Shortness of breath, possible pulmonary disease. MEDICAL HISTORY : Hypertension. SURGICAL HISTORY : None. ENCOUNTER: Subsequent ACUITY: 2 days PAIN SCORE: 0/10 LOCATION: Bilateral chest FINDINGS: Persistent consolidation left mid and lower lung with loss of delineation of the entire left hemidiap hragm. Hazy opacity in the right lower lung with loss of delineation right hemidiaphragm, characteri stic of pleural effusion, stable in severity. The heart is enlarged. CONCLUSION: Stable right pleural effusion and left lower lung consolidation. Dillan Leonard MD on June 05, 2017 at 5:26 Board Certified Radiologist. This report was verified electronically.
[2017-06-05 05:45] LABS: BASOPHIL % 0.4 % (0.0-2.0); EOSINOPHIL # 0.1 TH/MM3 (0-0.4); EOSINOPHIL % 1.2 % (0.0-4.0); HEMATOCRIT 25.3 % (39.0-51.0); HEMOGLOBIN 8.6 GM/DL (13.0-17.0); LYMPH % 4.9 % (9.0-44.0); LYMPHOCYTE # 0.2 TH/MM3 (1.0-4.8); MEAN CELL VOLUME 97.3 FL (80.0-100.0); MEAN CORPUSCULAR HEMOGLOBIN 32.9 PG (27.0-34.0); MEAN CORPUSCULAR HGB CONC 33.8 % (32.0-36.0); MEAN PLATELET VOLUME 9.1 FL (7.0-11.0); MONO % 12.9 % (0.0-8.0); MONOCYTE # 0.6 TH/MM3 (0-0.9); NEUT % 80.6 % (16.0-70.0); PLATELET COUNT 175 TH/MM3 (150-450); RED CELL DISTRIBUTION WIDTH 21.8 % (11.6-17.2)
[2017-06-05 06:09] LABS: ALBUMIN 3.9 GM/DL (3.4-5.0); AST (GOT) 27 U/L (15-37); BICARBONATE 31.4 MEQ/L (21.0-32.0); BLOOD UREA NITROGEN 26 MG/DL (7-18); CALCIUM 10.6 MG/DL (8.5-10.1); CHLORIDE 101 MEQ/L (98-107); CREATININE 2.53 MG/DL (0.60-1.30); GLOMERULAR FILTRATION RATE 25 ML/MIN (>89); GLUCOSE,RANDOM 87 MG/DL (74-106); SODIUM (NA) 142 MEQ/L (136-145)
[2017-06-05 06:14] LABS: ALKALINE PHOSPHATASE 93 U/L (45-117); ALT (GPT) 40 U/L (12-78); TOTAL PROTEIN 6.9 GM/DL (6.4-8.2)
--- NOTE | 2017-06-05 09:12 | PD.CONS ---
HPI Service Nephrology Consult Requested By Reason for Consult ESRD Primary Care Physician Unknown History of Present Illness Patient is a 76-year-old male with past medical history significant for severe aortic stenosis (peak 94, mean 55, NATA 0.5), recurrent congestive heart failure, coronary artery disease with LAD lesion, hypertension, on dialysis for end-stage renal disease, atrial fibrillation on warfarin, who was sent to the emergency department from [facility] for INR>13 and hemoglobin low. He denied any chest pain or dizziness, further ER workup revealed he had a hemoglobin of 6.5 INR was 13.6. BNP was elevated at 1209. Chest x-ray showed severe pulmonary vascular congestion and bilateral effusions. Patient has severe aortic stenosis, and had been seen by Dr. Ortiz and cardiothoracic surgeon Dr. Nielson before, plan is for PCI and TAVR once stable and prior to that patient needed teeth extracted, and was to follow up as OP with Dr. Santiago. I was notified of patient's clinical situation by ER Nurse practitioner. Because of pulmonary edema and need for blood products emergency dialysis was arranged and carried out last night. He has received 2 units of PRBC and 2 units of FFP. Also has received Vitamin K and Kcintra. This morning he is extremely lethargic and unable to provide any history. Review of Systems ROS Limitations: Clinical Condition Past Family Social History Allergies: Coded Allergies: No Known Allergies (Verified Allergy, Unknown, 06/04/17) Past Medical History Hypertension Type 2 diabetes Hypelipidemia Patent foramen ovale Severe Aortic Stenosis awaiting on surgery Atrial fibrillation End-stage renal disease on hemodialysis. Tuesdays//Saturdays Frequent syncopal episodes secondary to severe aortic stenosis Anemia of chronic disease Poor dentition C. difficile Past Surgical History AV Fistula Pilonidal Cyst Reported Medications Amiodarone (Amiodarone HCl) 200 Mg Tab 400 Mg PO TIDPC [place] (Hydrocodone-Acetaminophen) 5 Mg-325 Mg Tab 1 Tab PO Q12HR PRN Tgt Aspirin (Aspirin) 81 Mg Chw 81 Mg CHEW DAILY Cardizem (Diltiazem HCl) 60 Mg Tab 60 Mg PO Q6H Nitrostat SL (Nitroglycerin) 0.4 Mg Subl 0.4 Mg SL UNSCH PRN Digoxin 0.125 Mg Tab 0.125 Mg PO Q48H Coumadin (Warfarin) 1 Mg Tab 1 Mg PO DAILY@1600 Renvela (Sevelamer Carbonate) 800 Mg Tab 2,400 Mg PO TID Allopurinol 100 Mg Tab 100 Mg PO DAILY Sensipar (Cinacalcet) 30 Mg Tab 30 Mg PO DAILY Active Ordered Medications Current Medications Medications (Trade) Dose Ordered Sig/Jamal Route Start Time Stop Time Status Last Admin (NS Flush) 2 ml UNSCH PRN IVF 06/04/17 17:45 06/04/17 18:06 Sodium Chloride 250 ml @ 15 mls/hr ONCE ONCE IV 06/04/17 19:30 06/05/17 12:09 06/04/17 22:27 Pantoprazole Sodium 80 mg/ Sodium Chloride 100 ml @ 10 mls/hr Q10H IV 06/04/17 19:39 06/04/17 22:32 (Duoneb Neb) 1 ampule Q4HR NEB PRN INH 06/04/17 20:30 Miscellaneous Information 1 Q361D XX 06/04/17 20:30 06/04/17 22:15 (Chlorhexidine 2% Cloth) 3 pack Taper DAILY@04 TOP 06/05/17 04:00 06/01/18 03:59 06/05/17 03:04 (Chlorhexidine 2% Cloth) 3 pack UNSCH PRN TOP 06/04/17 20:30 (Zyloprim) 100 mg DAILY PO 06/05/17 09:00 (Cordarone) 400 mg TIDPC PO 06/05/17 09:30 (Sensipar) 30 mg DAILY PO 06/05/17 09:00 (Lanoxin) 0.125 mg Q48H PO 06/04/17 23:00 (Renvela) 2,400 mg TID PO 06/05/17 09:00 Sodium Chloride 1,000 ml @ 0 mls/hr Q0M PRN OTHER 06/04/17 22:37 (Heparin Inj) 8,000 units UNSCH PRN IV FLUSH 06/04/17 22:45 Sodium Chloride 1,000 ml @ 200 mls/hr Q5H PRN IV 06/04/17 22:37 Sodium Chloride 1,000 ml @ 0 mls/hr Q0M PRN OTHER 06/04/17 22:37 (Mannitol Inj) 12.5 gm UNSCH PRN IV 06/04/17 22:45 Albumin Human 100 ml @ 60 mls/hr UNSCH PRN IV 06/04/17 22:45 06/05/17 00:19 (NS Flush) 5 ml UNSCH PRN IV FLUSH 06/04/17 22:45 (Heparin Inj) UNSCH PRN .XX 06/04/17 22:45 (Gentamicin Inj) 20 mg UNSCH PRN OTHER 06/04/17 22:45 (Zofran Inj) 4 mg UNSCH PRN IV PUSH 06/04/17 22:45 (Tylenol) 650 mg UNSCH PRN PO 06/04/17 22:45 (Benadryl) 25 mg UNSCH PRN PO 06/04/17 22:45 (Nitrostat Sl) 0.4 mg UNSCH PRN SL 06/04/17 22:45 (Catapres) 0.1 mg UNSCH PRN PO 06/04/17 22:45 (Epogen Inj) 10,000 units UNSCH PRN IV PUSH 06/04/17 22:45 (Gelfoam 12 Mm/7 Mm Top) 1 foam UNSCH PRN TOP 06/04/17 22:45 06/05/17 00:18 Phenylephrine HCl 160 mg/Dextrose 500 ml @ 7.5 mls/hr TITRATE PRN IV 06/04/17 22:30 06/04/17 23:28 (Brethine Inj) 1 mg UNSCH PRN SQ 06/04/17 22:30 Family History unable to obtain Social History no history of tobacco or ETOH Physical Exam Vital Signs Vital Signs Date Time Temp Pulse Resp B/P (MAP) Pulse Ox O2 Delivery O2 Flow Rate FiO2 06/05/17 06:00 72 06/05/17 06:00 72 18 137/65 (89) 95 06/05/17 05:00 65 20 124/59 (80) 98 06/05/17 04:00 72 06/05/17 04:00 98.9 72 21 84/43 (57) 98 06/05/17 03:45 72 121/81 06/05/17 03:00 80 19 118/42 (67) 100 06/05/17 03:00 80 118/42 06/05/17 02:50 74 117/49 06/05/17 02:10 80 109/44 06/05/17 02:00 80 18 91/49 (63) 98 18 02:00 74 318 01:40 87 93/45 18 01:00 78 22 91/42 (58) 97 18 00:45 73 83/39 18 00:20 76 88/43 /18 00:00 98.2 78 22 93/56 (68) 100 06/05/17 00:00 78 18 23:50 74 88/41 18 23:40 79 84/40 18 23:38 97.7 76 17 84/47 95 18 23:28 79 71/52 18 23:19 79 26 71/52 93 06/04/17 23:03 97.7 79 14 73/49 95 06/04/17 23:00 74 18 23:00 74 26 65/49 (54) 96 18 22:58 97.7 75 20 65/49 96 06/04/17 22:47 97.8 73 29 73/44 98 18 22:46 97.8 73 29 73/44 18 22:45 97.8 73 73/44 /18 22:15 97.8 87 29 69/65 (66) 98 18 20:44 69 16 91/42 (58) 100 Nasal Cannula 3.00 18 18:10 98.0 69 18 99/50 (66) 99 Nasal Cannula 3.00 06/04/17 17:42 97 Nasal Cannula 3.00 18 17:42 77 17 97 Nasal Cannula 3.00 18 17:00 97.8 65 18 98/55 (69) 97 Nasal Cannula 3.00 18 15:47 99.0 70 23 130/73 (92) 97 Physical Exam GENERAL: poorly responsive. malnourished. AVF in the left forearm is patent. SKIN: Warm and dry. HEAD: Normocephalic. EYES: No scleral icterus. No injection or drainage. NECK: Supple, trachea midline. No JVD or lymphadenopathy. CARDIOVASCULAR: Regular rate and rhythm 3/6 ejection systolic murmur. RESPIRATORY: Breath sounds equal bilaterally. No accessory muscle use. GASTROINTESTINAL: Abdomen soft, non-tender, nondistended. MUSCULOSKELETAL: No cyanosis, or edema. Laboratory Laboratory Tests Test 06/04/17 17:48 06/04/17 22:15 06/05/17 01:09 06/05/17 01:44 White Blood Count 6.0 Red Blood Count 1.90 Hemoglobin 6.5 10.0 Hematocrit 20.2 29.8 Mean Corpuscular Volume 105.9 Mean Corpuscular Hemoglobin 34.1 Mean Corpuscular Hemoglobin Concent 32.3 Red Cell Distribution Width 19.1 Platelet Count 217 Mean Platelet Volume 9.5 Neutrophils (%) (Auto) 80.6 Lymphocytes (%) (Auto) 6.2 Monocytes (%) (Auto) 10.4 Eosinophils (%) (Auto) 2.2 Basophils (%) (Auto) 0.6 Neutrophils # (Auto) 4.9 Lymphocytes # (Auto) 0.4 Monocytes # (Auto) 0.6 Eosinophils # (Auto) 0.1 Basophils # (Auto) 0.0 CBC Comment DIFF FINAL Differential Comment Prothrombin Time 135.2 15.6 Prothromb Time International Ratio 13.6 1.5 Activated Partial Thromboplast Time 47.1 Blood Urea Nitrogen 41 Creatinine 3.36 Random Glucose 92 Total Protein 5.8 Albumin 2.8 Calcium Level 10.4 Alkaline Phosphatase 97 Aspartate Amino Transf (AST/SGOT) 29 Alanine Aminotransferase (ALT/SGPT) 37 Total Bilirubin 0.5 Sodium Level 140 Potassium Level 4.7 Chloride Level 102 Carbon Dioxide Level 29.8 Anion Gap 8 Estimat Glomerular Filtration Rate 18 B-Type Natriuretic Peptide 1209 Nasal Screen MRSA (PCR) MRSA DETECTED Test 06/05/17 04:46 White Blood Count 5.0 Red Blood Count 2.60 Hemoglobin 8.6 Hematocrit 25.3 Mean Corpuscular Volume 97.3 Mean Corpuscular Hemoglobin 32.9 Mean Corpuscular Hemoglobin Concent 33.8 Red Cell Distribution Width 21.8 Platelet Count 175 Mean Platelet Volume 9.1 Neutrophils (%) (Auto) 80.6 Lymphocytes (%) (Auto) 4.9 Monocytes (%) (Auto) 12.9 Eosinophils (%) (Auto) 1.2 Basophils (%) (Auto) 0.4 Neutrophils # (Auto) 4.0 Lymphocytes # (Auto) 0.2 Monocytes # (Auto) 0.6 Eosinophils # (Auto) 0.1 Basophils # (Auto) 0.0 CBC Comment DIFF FINAL Differential Comment Blood Urea Nitrogen 26 Creatinine 2.53 Random Glucose 87 Total Protein 6.9 Albumin 3.9 Calcium Level 10.6 Alkaline Phosphatase 93 Aspartate Amino Transf (AST/SGOT) 27 Alanine Aminotransferase (ALT/SGPT) 40 Total Bilirubin 1.0 Sodium Level 142 Potassium Level 4.1 Chloride Level 101 Carbon Dioxide Level 31.4 Anion Gap 10 Estimat Glomerular Filtration Rate 25 Result Diagram: 06/05/1744506/05/17445 Assessment and Plan Problem List: (1) ESRD (end stage renal disease) on dialysis ICD Codes: N18.6 - End stage renal disease; Z99.2 - Dependence on renal dialysis Plan: usually dialyzes TTS. He was dialyzed yesterday due to above mentioned reasons. Monitor. Avoid excessive IVF fluid administration. Monitor electrolytes. (2) Coagulopathy ICD Codes: D68.9 - Coagulation defect, unspecified Plan: Given FFP, Vitamin K, Kcintra. INR is now 1.5 (3) Anemia ICD Codes: D64.9 - Anemia Status: Acute Plan: blood loss anemia, in the context of GI bleeding and coagulopathy. Hemoglobin has improved with blood transfusion. (4) Severe aortic valve stenosis ICD Codes: I35.0 - Nonrheumatic aortic (valve) stenosis Plan: need for surgical therapy (TAVR). Prognosis is very poor. (5) Atrial fibrillation ICD Codes: I48.91 - Unspecified atrial fibrillation Plan: He is on amiodarone. Was on Coumadin. (6) Pulmonary edema ICD Codes: J81.1 - Chronic pulmonary edema Status: Acute Plan: Had dialysis yesterday. 3800 ml in UF. Assessment and Plan Thanks for the consult. Problem Qualifiers (1) Anemia: Qualified Codes: D64.9 - Anemia, unspecified (2) Pulmonary edema: Qualified Codes: J81.0 - Acute pulmonary edema Haider Winters MD Jun 05, 2017 09:12
--- NOTE | 2017-06-05 09:14 | EKG ---
Date Performed: 06/04/2017 Time Performed: 18:14:50 PTAGE: 76 years EKG: ATRIAL FIBRILLATION BORDERLINE LEFT AXIS DEVIATION MODERATE INTRAVENTRICULAR CONDUCTION DEL AY ST DEVIATION AND MODERATE T-WAVE ABNORMALITY, CONSIDER ANTERIOR ISCHEMIA ABNORMAL ECG WARNING: SHELTON A QUALITY MAY AFFECT INTERPRETATION PREVIOUS TRACING : 05/13/2017 19.11 DOCTOR: Gerardo Cabrera Interpretating Date/Time 06/05/2017 09:13:07
[2017-06-05] MEDS: AMIODARONE 200 MG TAB PO SCH ×3 (09:18→17:21)
[2017-06-05] MEDS: PANTOPRAZOLE INJ 80 MG in SODIUM CHLORIDE 0.9% INJ 100 ML IV SCH ×2 (09:18→17:25)
[2017-06-05] MEDS: SEVELAMER CARBONATE 800 MG TAB PO SCH ×3 (09:18→17:21)
[2017-06-05] MEDS: CINACALCET HYDROCHLORIDE 30 MG TAB PO SCH (09:18)
[2017-06-05] MEDS: ALLOPURINOL 100 MG TAB PO SCH (09:18)
--- NOTE | 2017-06-05 10:27 | PD.CONS ---
HPI History of Present Illness This is a 76 year old male with ESRD on HD, severe aortic stenosis who was sent to ER from [facility] for supratherpeutic INR and low hgb. Heme pos stool found in ER. Inr 13.6 on admission, now corrected. Pt denies any black tarry stool or blood in stool. He is otherwise noncontributory. Per RN no report of bleeding and he has not had a BM yet. He was evaluated by our service for heme pos stool in april and had EGD and colonoscopy 04/24/17 with finding pangastritis, duodenitis, colon polyp, diverticulosis. He is in need of a TAVR for his aortic stenosis. Was on Warfarin. Hx obtained from EMR. (Jessica Weathers) PFSH Past Medical History Hypertension diet conrolled DM II Hypelipidemia ESRD on HD T//Wed Past Surgical History AV Fistula Pilonidal Cyst (Jessica Weathers) Coded Allergies: No Known Allergies (Verified Allergy, Unknown, 06/04/17) Family History Mother with Dm II and Father with Hypertension. Social History per EMR no etoh tobacco or drugs (Jessica Weathers) Review of Systems noncontributory (Jessica Weathers) GI Exam Vitals I&O Vital Signs Date Time Temp Pulse Resp B/P (MAP) Pulse Ox O2 Delivery O2 Flow Rate FiO2 06/05/17 09:44 94 Nasal Cannula 3.00 06/05/17 06:00 72 06/05/17 06:00 72 18 137/65 (89) 95 06/05/17 05:00 65 20 124/59 (80) 98 06/05/17 04:00 72 06/05/17 04:00 98.9 72 21 84/43 (57) 98 06/05/17 03:45 72 121/81 06/05/17 03:00 80 19 118/42 (67) 100 06/05/17 03:00 80 118/42 06/05/17 02:50 74 117/49 06/05/17 02:10 80 109/44 06/05/17 02:00 80 18 91/49 (63) 98 06/05/17 02:00 74 06/05/17 01:40 87 93/45 06/05/17 01:00 78 22 91/42 (58) 97 06/05/17 00:45 73 83/39 18 00:20 76 88/43 18 00:00 98.2 78 22 93/56 (68) 100 06/05/17 00:00 78 18 23:50 74 88/41 06/04/17 23:40 79 84/40 06/04/17 23:38 97.7 76 17 84/47 95 06/04/17 23:28 79 71/52 18 23:19 79 26 71/52 93 06/04/17 23:03 97.7 79 14 73/49 95 06/04/17 23:00 74 06/04/17 23:00 74 26 65/49 (54) 96 06/04/17 22:58 97.7 75 20 65/49 96 06/04/17 22:47 97.8 73 29 73/44 98 18 22:46 97.8 73 29 73/44 18 22:45 97.8 73 73/44 18 22:15 97.8 87 29 69/65 (66) 98 18 20:44 69 16 91/42 (58) 100 Nasal Cannula 3.00 06/04/17 18:10 98.0 69 18 99/50 (66) 99 Nasal Cannula 3.00 06/04/17 17:42 97 Nasal Cannula 3.00 18 17:42 77 17 97 Nasal Cannula 3.00 06/04/17 17:00 97.8 65 18 98/55 (69) 97 Nasal Cannula 3.00 06/04/17 15:47 99.0 70 23 130/73 (92) 97 I/O 18 18 06/04/18 18 18 06/05/17 07:00 15:00 23:00 07:00 15:00 23:00 Intake Total 687 ml 911 ml Output Total 3800 ml Balance 687 ml -2889 ml Intake Oral 0 ml IV Total 65 ml 200 ml Packed Cells 400 ml 400 ml FFP 187 ml 296 ml Blood Product IV Normal Saline Flush 35 ml 15 ml Output Urine Total 0 ml Hemodialysis 3800 ml # Bowel Movements 0 Imaging Last Impressions Chest X-Ray 06/05/17 0600 Signed Impressions: Service Date/Time: Monday, June 05, 2017 04:08 - CONCLUSION: Stable right pleural effusion and left lower lung consolidation. Dillan Leonard MD Laboratory Test 06/04/17 17:48 06/04/17 22:15 06/05/17 01:09 06/05/17 01:44 White Blood Count 6.0 TH/MM3 Red Blood Count 1.90 MIL/MM3 Hemoglobin 6.5 GM/DL 10.0 GM/DL Hematocrit 20.2 % 29.8 % Mean Corpuscular Volume 105.9 FL Mean Corpuscular Hemoglobin 34.1 PG Mean Corpuscular Hemoglobin Concent 32.3 % Red Cell Distribution Width 19.1 % Platelet Count 217 TH/MM3 Mean Platelet Volume 9.5 FL Neutrophils (%) (Auto) 80.6 % Lymphocytes (%) (Auto) 6.2 % Monocytes (%) (Auto) 10.4 % Eosinophils (%) (Auto) 2.2 % Basophils (%) (Auto) 0.6 % Neutrophils # (Auto) 4.9 TH/MM3 Lymphocytes # (Auto) 0.4 TH/MM3 Monocytes # (Auto) 0.6 TH/MM3 Eosinophils # (Auto) 0.1 TH/MM3 Basophils # (Auto) 0.0 TH/MM3 CBC Comment DIFF FINAL Differential Comment Prothrombin Time 135.2 SEC 15.6 SEC Prothromb Time International Ratio 13.6 RATIO 1.5 RATIO Activated Partial Thromboplast Time 47.1 SEC Blood Urea Nitrogen 41 MG/DL Creatinine 3.36 MG/DL Random Glucose 92 MG/DL Total Protein 5.8 GM/DL Albumin 2.8 GM/DL Calcium Level 10.4 MG/DL Alkaline Phosphatase 97 U/L Aspartate Amino Transf (AST/SGOT) 29 U/L Alanine Aminotransferase (ALT/SGPT) 37 U/L Total Bilirubin 0.5 MG/DL Sodium Level 140 MEQ/L Potassium Level 4.7 MEQ/L Chloride Level 102 MEQ/L Carbon Dioxide Level 29.8 MEQ/L Anion Gap 8 MEQ/L Estimat Glomerular Filtration Rate 18 ML/MIN B-Type Natriuretic Peptide 1209 PG/ML Nasal Screen MRSA (PCR) MRSA DETECTED Test 06/05/17 04:46 White Blood Count 5.0 TH/MM3 Red Blood Count 2.60 MIL/MM3 Hemoglobin 8.6 GM/DL Hematocrit 25.3 % Mean Corpuscular Volume 97.3 FL Mean Corpuscular Hemoglobin 32.9 PG Mean Corpuscular Hemoglobin Concent 33.8 % Red Cell Distribution Width 21.8 % Platelet Count 175 TH/MM3 Mean Platelet Volume 9.1 FL Neutrophils (%) (Auto) 80.6 % Lymphocytes (%) (Auto) 4.9 % Monocytes (%) (Auto) 12.9 % Eosinophils (%) (Auto) 1.2 % Basophils (%) (Auto) 0.4 % Neutrophils # (Auto) 4.0 TH/MM3 Lymphocytes # (Auto) 0.2 TH/MM3 Monocytes # (Auto) 0.6 TH/MM3 Eosinophils # (Auto) 0.1 TH/MM3 Basophils # (Auto) 0.0 TH/MM3 CBC Comment DIFF FINAL Differential Comment Blood Urea Nitrogen 26 MG/DL Creatinine 2.53 MG/DL Random Glucose 87 MG/DL Total Protein 6.9 GM/DL Albumin 3.9 GM/DL Calcium Level 10.6 MG/DL Alkaline Phosphatase 93 U/L Aspartate Amino Transf (AST/SGOT) 27 U/L Alanine Aminotransferase (ALT/SGPT) 40 U/L Total Bilirubin 1.0 MG/DL Sodium Level 142 MEQ/L Potassium Level 4.1 MEQ/L Chloride Level 101 MEQ/L Carbon Dioxide Level 31.4 MEQ/L Anion Gap 10 MEQ/L Estimat Glomerular Filtration Rate 25 ML/MIN Physical Examination HEENT: PERRL; normocephalic; atraumatic; no jaundice. CHEST: diminished, shallow respirations CARDIAC: RRR, + murmur ABDOMEN: Soft, nondistended, nontender; no hepatosplenomegaly; bowel sounds are present in all four quadrants. EXTREMITIES: No clubbing, cyanosis, or edema. SKIN: Normal; no rash; no jaundice. 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 no obvious bleeding or report of such - anemia - hgb 6.5 on admission. likely multifactorial. EGD and colonoscopy found pangastritis, duodenitis, polyp, diverticulosis he is lethargic and can provide no hx. 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 Recent gi loera documented. Monitor labs. Repeat interventions if active bleeding. Will follow, thank you (Coy Johnson MD) Jessica Weathers Jun 05, 2017 10:27 Coy Johnson MD Jun 05, 2017 14:10
[2017-06-05 15:04] LABS: HEMATOCRIT 25.6 % (39.0-51.0); HEMOGLOBIN 8.6 GM/DL (13.0-17.0)
[2017-06-05 15:18] LABS: INTERNATIONAL NORMALIZED RATIO 1.5 RATIO; PROTHROMBIN TIME - PATIENT 15.4 SEC (9.8-11.6)
--- NOTE | 2017-06-05 16:44 | HHI.CCPN ---
Subjective Remarks/Hospital Course Patient is a 76-year-old male with past medical history significant for severe aortic stenosis (peak 94, mean 55, NATA 0.5), recurrent congestive heart failure, coronary artery disease with LAD lesion, hypertension, on dialysis for end-stage renal disease, atrial fibrillation on warfarin, who was sent to the emergency department from [facility] for INR>13 and hemoglobin low. He denied any chest pain or dizziness, further ER workup revealed he had a hemoglobin of 6.5 INR was 13.6. BNP was elevated at 1209. Chest x-ray showed severe pulmonary vascular congestion and bilateral effusions. Patient has severe aortic stenosis, and had been seen by Dr. Ortiz and cardiothoracic surgeon Dr. Nielson before, plan is for PCI and TAVR once stable and prior to that patient needed teeth extracted, and was to follow up as OP with Dr. Santiago. Given GI bleed and anemia patient is receiving 2 units of PRBC , 2 units of FFP already received vitamin K 10 mg IV. I have also ordered Kcentra as he is hemodynamically unstable, and due to end-stage renal disease will not be able to handle multiple units of FFP. Nephrology Dr. Winters had been contacted, due to pulmonary edema patient will get stat hemodialysis and received blood products at the same time I evaluated the patient in the ICU. Patient is just starting to receive Kcentra. Hemodialysis is about the start blood pressure is low systolic blood pressure 65-70. I will start Yosef-Synephrine to maintain map about 65 and to facilitate hemodialysis, transfuse blood products. Patient's prognosis is guarded. He is mildly encephalopathic at this time Subjective 06/05: Currently resting in bed. Vasopressors have been discontinued. GI is cleared for clear liquid diet. Remains mildly encephalopathic Objective Vital Signs Date Time Temp Pulse Resp B/P (MAP) Pulse Ox O2 Delivery O2 Flow Rate FiO2 06/05/17 16:00 63 06/05/17 15:00 20 131/62 (85) 100 06/05/17 12:00 97.9 06/05/17 09:44 Nasal Cannula 3.00 Intake and Output 06/05/17 06/05/17 06/06/17 08:00 16:00 00:00 Intake Total 200 ml Output Total 3800 ml Balance -3600 ml Result Diagram: 06/05/17 1436 06/05/17 0446 Imaging Last Impressions Chest X-Ray 06/05/17 0600 Signed Impressions: Service Date/Time: Monday, June 05, 2017 04:08 - CONCLUSION: Stable right pleural effusion and left lower lung consolidation. Dillan Leonard MD Objective Remarks GENERAL: 76-year-old male resting in bed in no acute distress SKIN: Multiple pressure ulcers 15 cm in diameter pressure ulcer on the buttock, two other open areas on either side HEAD: Atraumatic. Normocephalic. EYES: Pupils equal and round. No scleral icterus. No injection or drainage. ENT: No nasal bleeding or discharge. Mucous membranes dry pale. Extremely poor dentition with one large tooth and lower jaw NECK: Trachea midline. No JVD. CARDIOVASCULAR: Tachycardic, IR. S1, S2. No S4. 2/6 systolic murmur right upper sternal border RESPIRATORY: Diminished breath sounds throughout. No wheezing GASTROINTESTINAL: Abdomen soft, non-tender, nondistended. Hypoactive bowel sounds are appreciated RECTAL EXAM in ED: Stool occult blood positive MUSCULOSKELETAL: Left forearm AV fistula. Positive thrill and bruit. NEUROLOGICAL: Awake and alert. Speech is soft and mumbled. Motor grossly within normal limits. 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 every 6 hours as needed fever Hydrocodone/acetaminophen 7.5/325 liquid every 6 hours as needed pain 1 through 10 Patient is on hydrocodone/acetaminophen 5/321 tablet every 6 hours as needed at home Monitor neuro status closely Outpatient dental extraction needs to be followed up on RESP: Bilateral pleural effusions likely transient secondary to congestive heart failure -Nasal cannula oxygen to keep oxygen saturation above 92% Albuterol/ipratropium aerosols every 6 hours with albuterol aerosols every 2 hours as needed dyspnea -Bilateral pleural effusion secondary to CHF, fluid removal with dialysis -Repeat chest x-ray in am 3/4 CV: Severe aortic stenosis Congestive heart failure/diastolic Atrial fibrillation Coronary artery disease/80% LAD lesion to 03/21 cardiac catheterization Hypertension History of PFO -Hold diltiazem PO 60 mg every 6, -Hold warfarin in light of acute blood loss anemia. Hold aspirin for the same reasons -Continue digoxin 0.25 mg every 40 hours. Check level in a.m. -Cardiology Dr. Ortiz and Dr. Nielson. Evaluated for PCI/TAVR March/2017. Need his teeth extracted prior to any surgical intervention -Dr. Santiago was consulted last admission and recommended OP appointment which is reasonable GI: History of C. difficile colitis -NPO currently. GI is okay to advance diet. -Patient is currently on pantoprazole drip at 8 mg an hour RENAL/: Chronic kidney disease stage V/end-stage renal disease on hemodialysis Wednesday/ /Wednesday Secondary hyperparathyroidism -End-stage renal disease on hemodialysis Wednesday//Wednesday -Nephrology Dr. Winters -Currently on Cinacalcet at 30 mg p.o. daily for secondary hyperparathyroidism. -Sevelamer carbonate 2400 mg p.o. 3 times daily for hyperphosphatemia ID: MRSA nares positive -Monitor for infection Mupirocin swabs twice daily HEME: Acute blood loss anemia Anemia of chronic kidney disease Supratherapeutic INR/warfarin toxicity -Receiving K Centra 2000 units in ED -Give 2 units PRBC, 2 units of FFP -Vitamin K 10 mg IV 1 -Monitor CBC, CMP, INR -Holding warfarin and aspirin. Last INR 1.5. Last hemoglobin 8.6 ENDO: Diabetes mellitus Gout Sliding scale insulin with Novulin R with Accu-Cheks before meals/at bedtime maintain euglycemia/medium regimen Continue allopurinol milligrams daily for gout FEN: Replace electrolytes as clinically indicated MSK Cervical myelopathy Moderate lumbar stenosis Previously evaluated by Dr. Fragoso/neurosurgery March/2017. Neurologically intact not requiring intervention at this time. High risk due to underlying cardiac issues. Physical therapy evaluate and treat PROPH: -Bilateral lower extremity SCDs. Hold warfarin/IV pantoprazole LINES: - Utilize PIV central line if needed Level 2 follow-up Edmund Kelley MD Jun 05, 2017 16:44
[2017-06-05] MEDS: INSULIN NovoLIN REGULAR SUPPLEMENTAL SCALE SQ SCH ×2 (17:00→19:49)
[2017-06-05] MEDS ORDERED: DEXTROSE 50% IN WATER 50 ML VIAL(D50) IV PUSH PRN (17:00)
[2017-06-05] MEDS ORDERED: GLUCAGON 1 MG/ML VIAL OTHER PRN (17:00)
[2017-06-05] MEDS ORDERED: ACETAMINOPHEN 650 MG/20.3 ML UDC PO PRN (17:00)
[2017-06-05 18:06] LABS: HEMATOCRIT 26.6 % (39.0-51.0)
[2017-06-05] MEDS: MUPIROCIN 2% OINT 1 APPLIC/GM SYR EACH NARE SCH (19:50)
[2017-06-05] MEDS ORDERED: MUPIROCIN 2% OINT 1 APPLIC/GM SYR EACH NARE SCH (21:00)
[2017-06-05 21:13] LABS: INTERNATIONAL NORMALIZED RATIO 1.6 RATIO; PROTHROMBIN TIME - PATIENT 15.8 SEC (9.8-11.6)
[2017-06-05] MEDS: RESP: ALBUTEROL 2.5 MG/IPRATROPIUM 0.5 MG NEB (SCH) NEB (21:33)
[2017-06-05] MEDS: ACETAMINOPHEN 325MG/HYDROcodone 7.5MG/15ML UDC PO PRN (23:59)
[2017-06-06] VITALS (26 sets, daily range): BP systolic 95–139; BP diastolic 50–65; PULSE 60–91; RESP 12–23; TEMP 97.1–98.7; O2SAT 85–100
[2017-06-06 00:02] LABS: HEMATOCRIT 25.9 % (39.0-51.0); HEMOGLOBIN 8.8 GM/DL (13.0-17.0)
[2017-06-06] MEDS: RESP: ALBUTEROL 2.5 MG/IPRATROPIUM 0.5 MG NEB (SCH) NEB ×4 (03:57→21:53)
[2017-06-06] MEDS: CHLORHEXIDINE GLUCONATE 2 % 1 PACK (2 CLOTHS) TOP SCH (04:00)
[2017-06-06] MEDS: PANTOPRAZOLE INJ 80 MG in SODIUM CHLORIDE 0.9% INJ 100 ML IV SCH ×3 (05:37→23:44)
--- NOTE | 2017-06-06 05:38 | RADRPT ---
EXAM DATE/TIME: 06/06/2017 02:34 [place] COMPARISON: CHEST SINGLE AP, June 05, 2017, 4:08. INDICATIONS : Shortness of breath, possible pulmonary disease. MEDICAL HISTORY : Hypertension. SURGICAL HISTORY : None. ENCOUNTER: Subsequent ACUITY: 3 days PAIN SCORE: 0/10 LOCATION: Bilateral chest FINDINGS: Persistent consolidation in the left mid and lower lung with loss of delineation of the entire left h emidiaphragm. Hazy opacity in the right mid and lower lung and lateral pleural thickening, character istic of pleural effusion, is also stable. Cardiomegaly. CONCLUSION: Stable left lung consolidation and right pleural effusion. Dillan Leonard MD on June 06, 2017 at 5:37 Board Certified Radiologist. This report was verified electronically.
[2017-06-06] MEDS: INSULIN NovoLIN REGULAR SUPPLEMENTAL SCALE SQ SCH ×4 (08:00→19:36)
[2017-06-06] MEDS: CINACALCET HYDROCHLORIDE 30 MG TAB PO SCH (08:39)
[2017-06-06] MEDS: ALLOPURINOL 100 MG TAB PO SCH (08:39)
[2017-06-06] MEDS: SEVELAMER CARBONATE 800 MG TAB PO SCH ×4 (08:39→18:19)
[2017-06-06] MEDS: ACETAMINOPHEN 325MG/HYDROcodone 7.5MG/15ML UDC PO PRN ×2 (08:39→21:08)
[2017-06-06] MEDS: MUPIROCIN 2% OINT 1 APPLIC/GM SYR EACH NARE SCH ×2 (08:40→19:36)
[2017-06-06] MEDS: AMIODARONE 200 MG TAB PO SCH ×3 (08:46→18:19)
--- NOTE | 2017-06-06 09:11 | HHI.NPPN ---
Subjective Interval History labs are pending. All the notes were reviewed. GI on the case. Remains NPO. Hemoglobin appears to have stabilized. Objective Data Data Vital Signs Date Time Temp Pulse Resp B/P (MAP) Pulse Ox O2 Delivery O2 Flow Rate FiO2 06/06/17 09:00 73 15 114/57 (76) 98 06/06/17 08:16 98 Nasal Cannula 2.00 06/06/17 08:05 100 Nasal Cannula 1.00 06/06/17 08:00 98.7 69 18 130/60 (83) 100 06/06/17 08:00 69 06/06/17 08:00 100 Nasal Cannula 2.00 06/06/17 07:00 72 22 129/63 (85) 100 06/06/17 06:00 67 06/06/17 06:00 67 16 130/58 (82) 100 06/06/17 05:00 65 20 133/62 (85) 95 06/06/17 04:00 97.1 67 19 123/58 (79) 100 06/06/17 04:00 67 06/06/17 03:58 100 Nasal Cannula 2.00 06/06/17 03:00 70 20 126/61 (82) 100 06/06/17 02:00 71 20 108/53 (71) 100 06/06/17 02:00 71 06/06/17 01:00 68 17 101/50 (67) 99 06/06/17 00:00 66 06/06/17 00:00 97.5 66 23 116/56 (76) 85 06/05/17 23:00 68 06/05/17 23:00 68 19 124/59 (80) 88 06/05/17 22:00 66 19 126/66 (86) 100 06/05/17 22:00 66 06/05/17 21:34 100 Nasal Cannula 3.00 06/05/17 21:00 68 22 133/61 (85) 100 06/05/17 20:00 97.2 67 24 126/62 (83) 100 06/05/17 20:00 67 06/05/17 19:00 66 22 125/58 (80) 100 06/05/17 18:00 66 06/05/17 18:00 66 17 135/63 (87) 100 06/05/17 17:00 65 30 140/64 (89) 99 06/05/17 16:00 63 06/05/17 16:00 98.3 63 17 139/62 (87) 100 06/05/17 15:00 67 20 131/62 (85) 100 06/05/17 15:00 67 06/05/17 14:00 84 06/05/17 14:00 84 27 128/60 (82) 100 06/05/17 13:00 87 17 131/60 (83) 100 06/05/17 12:00 84 06/05/17 12:00 97.9 84 22 133/63 (86) 100 06/05/17 11:00 77 17 118/69 (85) 100 06/05/17 10:00 66 06/05/17 10:00 66 18 114/57 (76) 100 06/05/17 09:44 94 Nasal Cannula 3.00 -: 06/05/17 2341 06/05/17 0446 Physical Exam General Appearance: Malnourished Eyes Eye Exam: Pupils Equal Neck Neck Exam: Neck Supple Pulmonary Resp Exam: Clear Bilaterally Cardiology CV Exam: Irregular, Murmur CV Remarks ejection systolic murmur. Gastrointestinal/Abdomen GI Exam: Soft, Non-Tender, Bowel Sounds Present Extremeties Extremities Exam: No Edema Neurologic Neuro Exam: Moving All Extremities Assessment/Plan Problem List: (1) ESRD (end stage renal disease) on dialysis ICD Codes: N18.6 - End stage renal disease; Z99.2 - Dependence on renal dialysis Plan: usually dialyzes TTS. He was emergently dialyzed on Wednesday night due to pulmonary edema and need for blood products. Avoid excessive IVF fluid administration. Monitor electrolytes. (2) Coagulopathy ICD Codes: D68.9 - Coagulation defect, unspecified Plan: Given FFP, Vitamin K, Kcentra. Improved. (3) Anemia ICD Codes: D64.9 - Anemia Status: Acute Plan: blood loss anemia, in the context of GI bleeding and coagulopathy. Hemoglobin has improved with blood transfusion. (4) Severe aortic valve stenosis ICD Codes: I35.0 - Nonrheumatic aortic (valve) stenosis Plan: need for surgical therapy (TAVR). Prognosis is very poor. (5) Atrial fibrillation ICD Codes: I48.91 - Unspecified atrial fibrillation Plan: He is on amiodarone. Was on Coumadin. (6) Pulmonary edema ICD Codes: J81.1 - Chronic pulmonary edema Status: Acute Plan: Had dialysis on Wednesday. 3800 ml in UF. May need dialysis on Wednesday. Dr. Mayers to follow from Wednesday Problem Qualifiers (1) Anemia: Qualified Codes: D64.9 - Anemia, unspecified (2) Pulmonary edema: Qualified Codes: J81.0 - Acute pulmonary edema Haider Winters MD Jun 06, 2017 09:11
[2017-06-06 09:34] LABS: AUTOMATED NEUTROPHIL # 3.9 TH/MM3 (1.8-7.7); BASOPHIL % 0.3 % (0.0-2.0); EOSINOPHIL # 0.1 TH/MM3 (0-0.4); EOSINOPHIL % 1.1 % (0.0-4.0); HEMOGLOBIN 8.8 GM/DL (13.0-17.0); LYMPH % 4.7 % (9.0-44.0); LYMPHOCYTE # 0.2 TH/MM3 (1.0-4.8); MEAN CELL VOLUME 99.6 FL (80.0-100.0); MEAN CORPUSCULAR HEMOGLOBIN 32.5 PG (27.0-34.0); MEAN CORPUSCULAR HGB CONC 32.6 % (32.0-36.0); MEAN PLATELET VOLUME 9.2 FL (7.0-11.0); MONO % 9.3 % (0.0-8.0); MONOCYTE # 0.4 TH/MM3 (0-0.9); NEUT % 84.6 % (16.0-70.0); PLATELET COUNT 174 TH/MM3 (150-450); RED BLOOD COUNT 2.71 MIL/MM3 (4.50-5.90); RED CELL DISTRIBUTION WIDTH 21.6 % (11.6-17.2); WHITE BLOOD COUNT 4.6 TH/MM3 (4.0-11.0)
[2017-06-06 09:42] LABS: INTERNATIONAL NORMALIZED RATIO 1.4 RATIO
[2017-06-06 10:33] LABS: ALBUMIN 3.4 GM/DL (3.4-5.0); AST (GOT) 31 U/L (15-37); BICARBONATE 30.9 MEQ/L (21.0-32.0); BLOOD UREA NITROGEN 40 MG/DL (7-18); CALCIUM 10.5 MG/DL (8.5-10.1); CHLORIDE 102 MEQ/L (98-107); CHOLESTEROL 103 MG/DL (120-200); GLUCOSE,RANDOM 87 MG/DL (74-106); MAGNESIUM 2.4 MG/DL (1.5-2.5); SODIUM (NA) 140 MEQ/L (136-145); TRIGLYCERIDES 157 MG/DL (42-150)
[2017-06-06 10:54] LABS: ALKALINE PHOSPHATASE 81 U/L (45-117); ALT (GPT) 40 U/L (12-78); CHOLESTEROL/ HDL RATIO 3.29 RATIO; CREATININE 3.65 MG/DL (0.60-1.30); DIGOXIN 2.2 NG/ML (0.8-2.0); GLOMERULAR FILTRATION RATE 16 ML/MIN (>89); HDL CHOLESTEROL 31.3 MG/DL (40.0-60.0); LDL CHOLESTEROL 40 MG/DL (0-99); PHOSPHORUS 4.6 MG/DL (2.5-4.9); TOTAL BILIRUBIN ADULT 0.9 MG/DL (0.2-1.0); TOTAL PROTEIN 6.5 GM/DL (6.4-8.2); TROPONIN I 0.09 NG/ML (0.02-0.05)
--- NOTE | 2017-06-06 16:06 | HHI.GIFU ---
Subjective Remarks Weak, drowsy but responds to verbal stimuli Hemoglobin 8.8 no obvious bleeding Afebrile Denies any acute abdominal pain (Estefany Quevedo) Objective Vitals I&O Vital Signs Date Time Temp Pulse Resp B/P (MAP) Pulse Ox O2 Delivery O2 Flow Rate FiO2 06/06/17 14:00 65 06/06/17 14:00 65 21 137/65 (89) 100 06/06/17 13:00 69 13 133/63 (86) 100 06/06/17 12:15 100 Nasal Cannula 2.00 06/06/17 12:00 70 20 139/60 (86) 97 06/06/17 12:00 70 06/06/17 11:00 76 16 112/55 (74) 98 06/06/17 10:00 71 17 108/54 (72) 94 06/06/17 10:00 71 06/06/17 09:00 73 15 114/57 (76) 98 06/06/17 08:16 98 Nasal Cannula 2.00 06/06/17 08:05 100 Nasal Cannula 1.00 06/06/17 08:00 98.7 69 18 130/60 (83) 100 06/06/17 08:00 69 06/06/17 08:00 100 Nasal Cannula 2.00 06/06/17 07:00 72 22 129/63 (85) 100 06/06/17 06:00 67 06/06/17 06:00 67 16 130/58 (82) 100 06/06/17 05:00 65 20 133/62 (85) 95 06/06/17 04:00 97.1 67 19 123/58 (79) 100 06/06/17 04:00 67 06/06/17 03:58 100 Nasal Cannula 2.00 06/06/17 03:00 70 20 126/61 (82) 100 06/06/17 02:00 71 20 108/53 (71) 100 06/06/17 02:00 71 06/06/17 01:00 68 17 101/50 (67) 99 06/06/17 00:00 66 06/06/17 00:00 97.5 66 23 116/56 (76) 85 06/05/17 23:00 68 06/05/17 23:00 68 19 124/59 (80) 88 06/05/17 22:00 66 19 126/66 (86) 100 06/05/17 22:00 66 06/05/17 21:34 100 Nasal Cannula 3.00 06/05/17 21:00 68 22 133/61 (85) 100 06/05/17 20:00 97.2 67 24 126/62 (83) 100 06/05/17 20:00 67 06/05/17 19:00 66 22 125/58 (80) 100 06/05/17 18:00 66 06/05/17 18:00 66 17 135/63 (87) 100 06/05/17 17:00 65 30 140/64 (89) 99 I/O 06/05/17 06/05/17 06/05/17 06/06/17 06/06/17 06/06/17 07:00 15:00 23:00 07:00 15:00 23:00 Intake Total 911 ml 120 ml 100 ml Output Total 3800 ml 0 ml Balance -2889 ml 120 ml 100 ml Intake Oral 0 ml 20 ml 0 ml IV Total 200 ml 100 ml 100 ml Packed Cells 400 ml FFP 296 ml Blood Product IV Normal Saline Flush 15 ml Output Urine Total 0 ml 0 ml Hemodialysis 3800 ml # Bowel Movements 0 0 Laboratory Laboratory Tests Test 06/05/17 17:50 06/05/17 20:20 06/05/17 23:41 06/06/17 09:10 Hemoglobin 9.0 8.8 8.8 Hematocrit 26.6 25.9 27.0 Prothrombin Time 15.8 14.0 Prothromb Time International Ratio 1.6 1.4 White Blood Count 4.6 Red Blood Count 2.71 Mean Corpuscular Volume 99.6 Mean Corpuscular Hemoglobin 32.5 Mean Corpuscular Hemoglobin Concent 32.6 Red Cell Distribution Width 21.6 Platelet Count 174 Mean Platelet Volume 9.2 Neutrophils (%) (Auto) 84.6 Lymphocytes (%) (Auto) 4.7 Monocytes (%) (Auto) 9.3 Eosinophils (%) (Auto) 1.1 Basophils (%) (Auto) 0.3 Neutrophils # (Auto) 3.9 Lymphocytes # (Auto) 0.2 Monocytes # (Auto) 0.4 Eosinophils # (Auto) 0.1 Basophils # (Auto) 0.0 CBC Comment DIFF FINAL Differential Comment Activated Partial Thromboplast Time 26.4 Fibrinogen 303 Blood Urea Nitrogen 40 Creatinine 3.65 Random Glucose 87 Total Protein 6.5 Albumin 3.4 Calcium Level 10.5 Phosphorus Level 4.6 Magnesium Level 2.4 Alkaline Phosphatase 81 Aspartate Amino Transf (AST/SGOT) 31 Alanine Aminotransferase (ALT/SGPT) 40 Total Bilirubin 0.9 Sodium Level 140 Potassium Level 4.2 Chloride Level 102 Carbon Dioxide Level 30.9 Anion Gap 7 Estimat Glomerular Filtration Rate 16 Lactic Acid Level 0.9 Ammonia 24 Troponin I 0.09 Triglycerides Level 157 Cholesterol Level 103 LDL Cholesterol 40 HDL Cholesterol 31.3 Cholesterol/HDL Ratio 3.29 Amylase Level 106 Lipase 411 Thyroid Stimulating Hormone 3rd Gen 0.879 Random Cortisol 40.9 Digoxin Level 2.2 Imaging Last Impressions Chest X-Ray 06/06/17 0600 Signed Impressions: Service Date/Time: Tuesday, June 06, 2017 02:34 - CONCLUSION: Stable left lung consolidation and right pleural effusion. Dillan Leonard MD Physical Exam HEENT: normocephalic; atraumatic; no jaundice. Pale NECK: Neck is supple, CHEST: Diminished breath sounds in bases bilateral CARDIAC: Atrial fibrillation irregular rhythm heart rate in the 60s to 70s ABDOMEN: Large, taut. Mild to moderate bloating , no obvious tenderness to light palpation bowel sounds are soft in all four quadrants. EXTREMITIES: Moves extremities with purpose, weak SKIN: Normal; no rash; no jaundice. 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 no obvious bleeding or report of such - anemia - hgb 6.5 on admission. Transfuse with 2 units packed RBCs and fresh frozen plasma 2 units. likely multifactorial. EGD and colonoscopy 04/24/17 found pangastritis, duodenitis, polyp, diverticulosis he is lethargic and can provide no hx. no report of bleeding, d/w RN - coagulopathy - INR 13.6 on admission and now 1.5 after vit k, blood products - ESRD on HD, Aortic stenosis 06/06/17, abdomen large, distended, although patient complains of no acute pain. Could be related to end-stage renal disease. Hemoccult 8.8., Lactic acid 0.9, ammonia 24 PLAN - diet clear liquids, tolerating slowly. Transition to full liquids tomorrow if no nausea vomiting - Continue Protonix drip for now - Monitor stools for red bleeding versus melena - Zofran as needed for nausea - monitor labs - transfuse as needed - notify GI of active bleeding - supportive care pt seen by myself and Dr Johnson and this note is on his behalf (Estefany Quevedo) Physician Comments Seen and examined with KAYE, no bleeding reported. Advance diet as tolerated. GI intervention if active bleeding. (Coy Johnson MD) Estefany Quevedo Jun 06, 2017 16:06 Coy Johnson MD Jun 06, 2017 16:39
--- NOTE | 2017-06-06 17:47 | HHI.CCPN ---
Subjective Remarks/Hospital Course Patient is a 76-year-old male with past medical history significant for severe aortic stenosis (peak 94, mean 55, NATA 0.5), recurrent congestive heart failure, coronary artery disease with LAD lesion, hypertension, on dialysis for end-stage renal disease, atrial fibrillation on warfarin, who was sent to the emergency department from [facility] for INR>13 and hemoglobin low. He denied any chest pain or dizziness, further ER workup revealed he had a hemoglobin of 6.5 INR was 13.6. BNP was elevated at 1209. Chest x-ray showed severe pulmonary vascular congestion and bilateral effusions. Patient has severe aortic stenosis, and had been seen by Dr. Ortiz and cardiothoracic surgeon Dr. Nielson before, plan is for PCI and TAVR once stable and prior to that patient needed teeth extracted, and was to follow up as OP with Dr. Santiago. Given GI bleed and anemia patient is receiving 2 units of PRBC , 2 units of FFP already received vitamin K 10 mg IV. I have also ordered Kcentra as he is hemodynamically unstable, and due to end-stage renal disease will not be able to handle multiple units of FFP. Nephrology Dr. Winters had been contacted, due to pulmonary edema patient will get stat hemodialysis and received blood products at the same time I evaluated the patient in the ICU. Patient is just starting to receive Kcentra. Hemodialysis is about the start blood pressure is low systolic blood pressure 65-70. I will start Yosef-Synephrine to maintain map about 65 and to facilitate hemodialysis, transfuse blood products. Patient's prognosis is guarded. He is mildly encephalopathic at this time Subjective 3/3: Currently resting in bed. Vasopressors have been discontinued. GI is cleared for clear liquid diet. Remains mildly encephalopathic. 3/4: Intermittent bouts of confusion. Follows commands, no vasopressors support needed. Diet has been advanced. Currently continues on Protonix infusion per GI management. Objective Vital Signs Date Time Temp Pulse Resp B/P (MAP) Pulse Ox O2 Delivery O2 Flow Rate FiO2 06/06/17 17:00 67 23 129/59 (82) 99 06/06/17 12:15 Nasal Cannula 2.00 06/06/17 08:00 98.7 Intake and Output 06/06/17 06/06/17 06/07/17 08:00 16:00 00:00 Intake Total 100 ml Balance 100 ml Result Diagram: 06/06/17 0910 06/06/17 0910 Imaging Last Impressions Chest X-Ray 06/06/17599 Signed Impressions: Service Date/Time: Tuesday, June 06, 2017 02:34 - CONCLUSION: Stable left lung consolidation and right pleural effusion. Dillan Leonard MD Last Impressions Chest X-Ray 06/05/17599 Signed Impressions: Service Date/Time: Monday, June 05, 2017 04:08 - CONCLUSION: Stable right pleural effusion and left lower lung consolidation. Dillan Leonard MD Objective Remarks GENERAL: 76-year-old male resting in bed in no acute distress SKIN: Multiple pressure ulcers 15 cm in diameter pressure ulcer on the buttock, two other open areas on either side HEAD: Atraumatic. Normocephalic. EYES: Pupils equal and round. No scleral icterus. No injection or drainage. ENT: No nasal bleeding or discharge. Mucous membranes dry pale. Extremely poor dentition with one large tooth and lower jaw NECK: Trachea midline. No JVD. CARDIOVASCULAR: Tachycardic, IR. S1, S2. No S4. 2/6 systolic murmur right upper sternal border RESPIRATORY: Diminished breath sounds throughout. No wheezing GASTROINTESTINAL: Abdomen soft, non-tender, nondistended. Hypoactive bowel sounds are appreciated RECTAL EXAM in ED: Stool occult blood positive MUSCULOSKELETAL: Left forearm AV fistula. Positive thrill and bruit. NEUROLOGICAL: Awake and alert. Speech is soft and mumbled. 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 every 6 hours as needed fever Hydrocodone/acetaminophen 7.5/325 liquid every 6 hours as needed pain 1 through 10 Patient is on hydrocodone/acetaminophen 5/321 tablet every 6 hours as needed at home Monitor neuro status closely Outpatient dental extraction needs to be followed up on RESP: Bilateral pleural effusions likely transient secondary to congestive heart failure -Nasal cannula oxygen to keep oxygen saturation above 92% Albuterol/ipratropium aerosols every 6 hours with albuterol aerosols every 2 hours as needed dyspnea -Bilateral pleural effusion secondary to CHF, fluid removal with dialysis -Repeat chest x-ray in am 06/06-stable right pleural effusion and cardiomegaly CV: Severe aortic stenosis Congestive heart failure/diastolic Atrial fibrillation Coronary artery disease/80% LAD lesion to 03/21 cardiac catheterization Hypertension History of PFO -Hold diltiazem PO 60 mg every 6, -Hold warfarin in light of acute blood loss anemia. Hold aspirin for the same reasons -Continue digoxin 0.25 mg every 40 hours. Dig level 2.2, needed closely monitor -Cardiology Dr. Ortiz and Dr. Garcia. Evaluated for PCI/TAVR March/2017. Need his teeth extracted prior to any surgical intervention -Dr. Santiago was consulted last admission and recommended OP appointment which is reasonable GI: History of C. difficile colitis -NPO currently. GI is okay to advance diet. -Patient is currently on pantoprazole drip at 8 mg an hour RENAL/: Chronic kidney disease stage V/end-stage renal disease on hemodialysis Wednesday/ /Wednesday Secondary hyperparathyroidism -End-stage renal disease on hemodialysis Wednesday//Wednesday -Nephrology Dr. Winters -Currently on Cinacalcet at 30 mg p.o. daily for secondary hyperparathyroidism. -Sevelamer carbonate 2400 mg p.o. 3 times daily for hyperphosphatemia ID: MRSA nares positive -Monitor for infection Mupirocin swabs twice daily HEME: Acute blood loss anemia Anemia of chronic kidney disease Supratherapeutic INR/warfarin toxicity -Receiving K Centra 2000 units in ED -Give 2 units PRBC, 2 units of FFP -Vitamin K 10 mg IV 1 -Monitor CBC, CMP, INR -Holding warfarin and aspirin. Last INR 1.5. Last hemoglobin 8.6 ENDO: Diabetes mellitus Gout Sliding scale insulin with Novulin R with Accu-Cheks before meals/at bedtime maintain euglycemia/medium regimen Continue allopurinol milligrams daily for gout FEN: Replace electrolytes as clinically indicated MSK Cervical myelopathy Moderate lumbar stenosis Previously evaluated by Dr. Fragoso/neurosurgery March/2017. Neurologically intact not requiring intervention at this time. High risk due to underlying cardiac issues. Physical therapy evaluate and treat PROPH: -Bilateral lower extremity SCDs. Hold warfarin/IV pantoprazole infusion, management per GI LINES: - Utilize PIV central line if needed Level 2 follow-up Physician Marlene Foss MD Jun 06, 2017 17:47
[2017-06-06] MEDS: DIGOXIN 0.125 MG TAB PO SCH (23:43)
[2017-06-07] VITALS (11 sets, daily range): BP systolic 88–110; BP diastolic 50–59; PULSE 64–104; RESP 16–17; TEMP 97–98.7; O2SAT 93–100
[2017-06-07] MEDS: RESP: ALBUTEROL 2.5 MG/IPRATROPIUM 0.5 MG NEB (SCH) NEB ×4 (03:25→20:45)
[2017-06-07] MEDS: CHLORHEXIDINE GLUCONATE 2 % 1 PACK (2 CLOTHS) TOP SCH (04:00)
[2017-06-07] MEDS: INSULIN NovoLIN REGULAR SUPPLEMENTAL SCALE SQ SCH ×4 (08:00→21:00)
[2017-06-07] MEDS: AMIODARONE 200 MG TAB PO SCH ×4 (09:30→17:38)
[2017-06-07 09:37] LABS: HEMATOCRIT 26.3 % (39.0-51.0); HEMOGLOBIN 8.7 GM/DL (13.0-17.0); MEAN CELL VOLUME 98.5 FL (80.0-100.0); MEAN CORPUSCULAR HEMOGLOBIN 32.4 PG (27.0-34.0); MEAN CORPUSCULAR HGB CONC 32.9 % (32.0-36.0); MEAN PLATELET VOLUME 9.6 FL (7.0-11.0); PLATELET COUNT 162 TH/MM3 (150-450); RED BLOOD COUNT 2.67 MIL/MM3 (4.50-5.90); RED CELL DISTRIBUTION WIDTH 21.9 % (11.6-17.2); WHITE BLOOD COUNT 4.5 TH/MM3 (4.0-11.0)
[2017-06-07 10:15] LABS: ALBUMIN 3.1 GM/DL (3.4-5.0); BICARBONATE 30.6 MEQ/L (21.0-32.0); CALCIUM 9.8 MG/DL (8.5-10.1); CREATININE 4.45 MG/DL (0.60-1.30); MAGNESIUM 2.3 MG/DL (1.5-2.5); PHOSPHORUS 3.6 MG/DL (2.5-4.9)
--- NOTE | 2017-06-07 10:27 | HHI.NPPN ---
Subjective General Problems: Anemia Renal Failure: End Stage Renal Disease History of Present Illness Patient is a 76-year-old male with past medical history significant for severe aortic stenosis (peak 94, mean 55, NATA 0.5), recurrent congestive heart failure, coronary artery disease with LAD lesion, hypertension, on dialysis for end-stage renal disease, atrial fibrillation on warfarin, who was sent to the emergency department from [facility] for INR>13 and hemoglobin low. He denied any chest pain or dizziness, further ER workup revealed he had a hemoglobin of 6.5 INR was 13.6. BNP was elevated at 1209. Chest x-ray showed severe pulmonary vascular congestion and bilateral effusions. Patient has severe aortic stenosis, and had been seen by Dr. Ortiz and cardiothoracic surgeon Dr. Nielson before, plan is for PCI and TAVR once stable and prior to that patient needed teeth extracted, and was to follow up as OP with Dr. Santiago. I was notified of patient's clinical situation by ER Nurse practitioner. Because of pulmonary edema and need for blood products emergency dialysis was arranged and carried out last night. He has received 2 units of PRBC and 2 units of FFP. Also has received Vitamin K and Kcintra. This morning he is extremely lethargic and unable to provide any history Additional Remarks Patient with mild SOB. Very weak. (Prachi Huitron) Review of Systems General Constitutional: Fatigue (Prachi Huitron) Respiratory Lungs: SOB (Prachi Huitron) Objective Data Data Vital Signs Date Time Temp Pulse Resp B/P (MAP) Pulse Ox O2 Delivery O2 Flow Rate FiO2 06/07/17 07:33 97 Nasal Cannula 2.00 06/07/17 05:30 100 Nasal Cannula 1.00 06/07/17 05:24 97.0 75 16 101/57 (72) 96 06/07/17 00:57 69 06/07/17 00:07 64 06/06/17 23:52 97.3 66 16 106/54 (71) 100 06/06/17 23:00 60 06/06/17 22:30 18 06/06/17 22:27 97.9 91 12 95/52 (66) 100 06/06/17 21:58 95 Nasal Cannula 2.00 06/06/17 20:00 67 06/06/17 20:00 98.5 67 19 121/59 (79) 100 06/06/17 19:00 99 Nasal Cannula 2.00 06/06/17 18:00 70 06/06/17 18:00 70 23 135/63 (87) 97 06/06/17 17:00 67 23 129/59 (82) 99 06/06/17 16:00 69 20 129/60 (83) 99 06/06/17 16:00 69 06/06/17 15:00 70 22 137/61 (86) 100 06/06/17 14:00 65 06/06/17 14:00 65 21 137/65 (89) 100 06/06/17 13:00 69 13 133/63 (86) 100 06/06/17 12:15 100 Nasal Cannula 2.00 06/06/17 12:00 70 20 139/60 (86) 97 06/06/17 12:00 70 06/06/17 11:00 76 16 112/55 (74) 98 (Prachi Huitron) -: 06/07/17 0758 06/06/17 0910 Physical Exam General Appearance: No Acute Distress, Malnourished (Prachi Huitron) Eyes Eye Exam: Pupils Equal (Prachi Huitron) Neck Neck Exam: Neck Supple (Prachi Huitron) Pulmonary Resp Exam: Clear Bilaterally (Prachi Huitron) Cardiology CV Exam: Irregular, Murmur (Prachi Huitron) Gastrointestinal/Abdomen GI Exam: Soft, Non-Tender, Bowel Sounds Present (Prachi Huitron) Extremeties Extremities Exam: No Edema (Prachi Huitron) Neurologic Neuro Exam: Moving All Extremities (Prachi Huitron) Assessment/Plan Problem List: (1) ESRD (end stage renal disease) on dialysis ICD Codes: N18.6 - End stage renal disease; Z99.2 - Dependence on renal dialysis Plan: usually dialyzes TTS. He was emergently dialyzed on Wednesday night due to pulmonary edema and need for blood products. Avoid excessive IVF fluid administration. continue Cinacalcet at 30 mg p.o. daily for secondary hyperparathyroidism. Continue Sevelamer carbonate 2400 mg p.o. 3 times daily for hyperphosphatemia Monitor electrolytes labs are pending for today Labs pending today. Dialysis planned for tomorrow (2) Coagulopathy ICD Codes: D68.9 - Coagulation defect, unspecified Plan: Given FFP, Vitamin K, Kcentra. Improved. (3) Anemia ICD Codes: D64.9 - Anemia Status: Acute Plan: blood loss anemia, in the context of GI bleeding and coagulopathy. Hemoglobin has improved with blood transfusion. (4) Severe aortic valve stenosis ICD Codes: I35.0 - Nonrheumatic aortic (valve) stenosis Plan: need for surgical therapy (TAVR). Prognosis is very poor. (5) Atrial fibrillation ICD Codes: I48.91 - Unspecified atrial fibrillation Plan: He is on amiodarone. Was on Coumadin. (6) Pulmonary edema ICD Codes: J81.1 - Chronic pulmonary edema Status: Acute Plan: Had dialysis on Wednesday. On O2 at 2 liters (Prachi Huitron) Problem List: (1) ESRD (end stage renal disease) on dialysis ICD Codes: N18.6 - End stage renal disease; Z99.2 - Dependence on renal dialysis Plan: usually dialyzes TTS. He was emergently dialyzed on Wednesday night due to pulmonary edema and need for blood products. Avoid excessive IVF fluid administration. continue Cinacalcet at 30 mg p.o. daily for secondary hyperparathyroidism. Continue Sevelamer carbonate 2400 mg p.o. 3 times daily for hyperphosphatemia Monitor electrolytes labs are pending for today Labs pending today. Dialysis planned for tomorrow. Patient seen and examined, agree with above. Follow Hgb., now stable. Epogen with HD. (2) Coagulopathy ICD Codes: D68.9 - Coagulation defect, unspecified Plan: Given FFP, Vitamin K, Kcentra. Improved. (3) Anemia ICD Codes: D64.9 - Anemia Status: Acute Plan: blood loss anemia, in the context of GI bleeding and coagulopathy. Hemoglobin has improved with blood transfusion. (4) Severe aortic valve stenosis ICD Codes: I35.0 - Nonrheumatic aortic (valve) stenosis Plan: need for surgical therapy (TAVR). Prognosis is very poor. (5) Atrial fibrillation ICD Codes: I48.91 - Unspecified atrial fibrillation Plan: He is on amiodarone. Was on Coumadin. (6) Pulmonary edema ICD Codes: J81.1 - Chronic pulmonary edema Status: Acute Plan: Had dialysis on Wednesday. On O2 at 2 liters (Quiana Mayers MD) Problem Qualifiers (1) Anemia: Qualified Codes: D64.9 - Anemia, unspecified (2) Pulmonary edema: Qualified Codes: J81.0 - Acute pulmonary edema Prachi Huitron Jun 07, 2017 10:27 Quiana Mayers MD Jun 07, 2017 20:43
[2017-06-07 10:31] LABS: DIGOXIN 2.4 NG/ML (0.8-2.0)
[2017-06-07] MEDS: MUPIROCIN 2% OINT 1 APPLIC/GM SYR EACH NARE SCH ×2 (10:39→22:08)
[2017-06-07] MEDS: SEVELAMER CARBONATE 800 MG TAB PO SCH ×3 (10:40→17:39)
[2017-06-07] MEDS: CINACALCET HYDROCHLORIDE 30 MG TAB PO SCH (10:41)
[2017-06-07] MEDS: ALLOPURINOL 100 MG TAB PO SCH (10:42)
--- NOTE | 2017-06-07 12:39 | PD.WCN.NOT ---
Wound Consult Description: Wound consult ordered by for Sacral area Communicated with: Elijah taylor, Recommendation: 1) Reposition patient every 2 hours for comfort and offloading. 2) Cleanse Sacral bilateral buttocks with normal saline pat dry. 3) Mix Santyl and lidocaine 4% in a 50/50 mix and apply to wound base and areas of necrosis. 4) Apply calcium alginate ll cut to fit wound bases 5) Cover with Optifoam basis cut to fit wound bases secure with paper tape ( Do not cover rectum) 6) Change dressing every day or as needed for dislodgement or exudate management. Additional Information: Patient was seen today by typewriter mechanic and Elijah Taylor for sacral area wound.Patient alert and oriented x2 in bed Very hard of hearing.Patient required max assistance to reposition to Right side.Dressing removed from sacral area to expose multiple open/denuded areas.Sacral wound measures 3.9cm x 3.0cm x slough.Wound base is 100% yellow/marie loosely adhered slough wound edges are well defined and intact.Moderate serosanguineous drainage noted with faint odor present.Danielle wound is reddened intact nonblanchable tissue.Bilateral buttocks has mixed etiology of pressure,moisture and deep tissue injuries measuring area of ~12.0cm x ~10.4cm x <0.1cm.Wounds are scattered with diffuse wound edges.Wound bases are ~65% beefy red nongranulated tissue and ~35% purple/ dark red tissue.Scant bloody drainage noted.Wound cleansed with normal saline and pat dry.Moistened fluffed gauze applied to wound bases and covered with Optifoam basic.Elijah will change dressing when Santyl and lidocaine available.Patient tolerated wound care with some difficulty due to pain.Patient was repositioned to right side for offloading and order place for Specialty surface bed.DTI noted to R posterior thigh in which Wound care team will monitor.Patient would benefit from sharps debridement consult ordered for general surgery. Tone Eddy [facility] Jun 07, 2017 12:39
--- NOTE | 2017-06-07 12:50 | HHI.GIFU ---
Subjective Remarks Pt resting in bed in NAD. Denies bleeding, no bleeding per RN. (Jessiac Weathers) Objective Vitals I&O Vital Signs Date Time Temp Pulse Resp B/P (MAP) Pulse Ox O2 Delivery O2 Flow Rate FiO2 06/07/17 12:03 104 06/07/17 08:00 98.3 87 16 88/50 (63) 97 06/07/17 07:33 97 Nasal Cannula 2.00 06/07/17 05:30 100 Nasal Cannula 1.00 06/07/17 05:24 97.0 75 16 101/57 (72) 96 06/07/17 00:57 69 06/07/17 00:07 64 06/06/17 23:52 97.3 66 16 106/54 (71) 100 06/06/17 23:00 60 06/06/17 22:30 18 06/06/17 22:27 97.9 91 12 95/52 (66) 100 06/06/17 21:58 95 Nasal Cannula 2.00 06/06/17 20:00 67 06/06/17 20:00 98.5 67 19 121/59 (79) 100 06/06/17 19:00 99 Nasal Cannula 2.00 06/06/17 18:00 70 06/06/17 18:00 70 23 135/63 (87) 97 06/06/17 17:00 67 23 129/59 (82) 99 06/06/17 16:00 69 20 129/60 (83) 99 06/06/17 16:00 69 06/06/17 15:00 70 22 137/61 (86) 100 06/06/17 14:00 65 06/06/17 14:00 65 21 137/65 (89) 100 06/06/17 13:00 69 13 133/63 (86) 100 I/O 06/06/17 06/06/17 06/06/17 06/07/17 06/07/17 06/07/17 07:00 15:00 23:00 07:00 15:00 23:00 Intake Total 100 ml 60 ml 336 ml Output Total 0 ml Balance 100 ml 60 ml 336 ml Intake Oral 0 ml 60 ml 236 ml IV Total 100 ml 100 ml Output Urine Total 0 ml # Bowel Movements 0 Laboratory Laboratory Tests Test 06/07/17 07:58 White Blood Count 4.5 Red Blood Count 2.67 Hemoglobin 8.7 Hematocrit 26.3 Mean Corpuscular Volume 98.5 Mean Corpuscular Hemoglobin 32.4 Mean Corpuscular Hemoglobin Concent 32.9 Red Cell Distribution Width 21.9 Platelet Count 162 Mean Platelet Volume 9.6 Blood Urea Nitrogen 50 Creatinine 4.45 Random Glucose 64 Albumin 3.1 Calcium Level 9.8 Phosphorus Level 3.6 Magnesium Level 2.3 Sodium Level 141 Potassium Level 4.3 Chloride Level 104 Carbon Dioxide Level 30.6 Anion Gap 6 Estimat Glomerular Filtration Rate 13 Digoxin Level 2.4 Imaging Last Impressions Chest X-Ray 06/06/17 0600 Signed Impressions: Service Date/Time: Tuesday, June 06, 2017 02:34 - CONCLUSION: Stable left lung consolidation and right pleural effusion. Dillan Leonard MD Physical Exam HEENT: normocephalic; atraumatic; no jaundice. CHEST: Diminished , shallow respirations CARDIAC: RRR + murmur ABDOMEN: soft, nontender, bowel sounds are soft in all four quadrants. EXTREMITIES: no cyanosis or edema SKIN: Normal; no rash; no jaundice. DAY TRADER:lethargic, weak (Jessica Weathers CELLULAR PHONE REPAIRER) Assessment and Plan Plan ASSESSMENT/ history - heme pos stool - in ER. no obvious bleeding or report of such - anemia - hgb 6.5 on admission. Transfuse with 2 units packed RBCs and fresh frozen plasma 2 units. likely multifactorial. EGD and colonoscopy 04/24/17 found pangastritis, duodenitis, polyp, diverticulosis he is lethargic and can provide no hx. no report of bleeding, d/w RN - coagulopathy - INR 13.6 on admission and now 1.5 after vit k, blood products - ESRD on HD, Aortic stenosis 06/06/17, abdomen large, distended, although patient complains of no acute pain. Could be related to end-stage renal disease. Hemoccult 8.8., Lactic acid 0.9, ammonia 24 06/07/17 HH stable, no obvious bleeding. ST evaluating- nectar thick liquids. PLAN - full liquids, nectar thick - advance diet as tolerated, per ST and attending - d/c protonix gtt - daily IV protonix - monitor labs - transfuse as needed - notify GI of active bleeding - supportive care - GI will sign off for now, please reconsult if needed pt seen by myself and Dr Luna and this note is on his behalf (Jessica Weathers) Physician Comments Plan as above, no further recommendations to add, please notify us if needed again. (Flavia Luna MD) Jessica Weathers Jun 07, 2017 12:50 Flavia Luna MD Jun 07, 2017 14:26
--- NOTE | 2017-06-07 13:11 | HHI.PR ---
Subjective Remarks The patient was resting in bed. He complained of pain in his buttocks area. He said he was eating all right. Discussed with nursing. Objective Vitals Vital Signs Date Time Temp Pulse Resp B/P (MAP) Pulse Ox O2 Delivery O2 Flow Rate FiO2 06/07/17 12:03 104 06/07/17 08:00 98.3 87 16 88/50 (63) 97 06/07/17 07:33 97 Nasal Cannula 2.00 06/07/17 05:30 100 Nasal Cannula 1.00 06/07/17 05:24 97.0 75 16 101/57 (72) 96 06/07/17 00:57 69 06/07/17 00:07 64 06/06/17 23:52 97.3 66 16 106/54 (71) 100 06/06/17 23:00 60 06/06/17 22:30 18 06/06/17 22:27 97.9 91 12 95/52 (66) 100 06/06/17 21:58 95 Nasal Cannula 2.00 06/06/17 20:00 67 06/06/17 20:00 98.5 67 19 121/59 (79) 100 06/06/17 19:00 99 Nasal Cannula 2.00 06/06/17 18:00 70 06/06/17 18:00 70 23 135/63 (87) 97 06/06/17 17:00 67 23 129/59 (82) 99 06/06/17 16:00 69 20 129/60 (83) 99 06/06/17 16:00 69 06/06/17 15:00 70 22 137/61 (86) 100 06/06/17 14:00 65 06/06/17 14:00 65 21 137/65 (89) 100 I/O 06/06/17 06/06/17 06/06/17 06/07/17 06/07/17 06/07/17 07:00 15:00 23:00 07:00 15:00 23:00 Intake Total 100 ml 60 ml 336 ml Output Total 0 ml Balance 100 ml 60 ml 336 ml Intake Oral 0 ml 60 ml 236 ml IV Total 100 ml 100 ml Output Urine Total 0 ml # Bowel Movements 0 Result Diagram: 06/07/17 0758 06/07/17 0758 Imaging Last Impressions Chest X-Ray 06/06/17 0600 Signed Impressions: Service Date/Time: Tuesday, June 06, 2017 02:34 - CONCLUSION: Stable left lung consolidation and right pleural effusion. Dillan Leonard MD Objective Remarks GENERAL: No distress. SKIN: Multiple pressure ulcers 15 cm in diameter pressure ulcer on the buttock, two other open areas on either side. HEAD: Atraumatic. Normocephalic. EYES: Pupils equal and round. No scleral icterus. No injection or drainage. ENT: No nasal bleeding or discharge. Mucous membranes dry pale. Extremely poor dentition with one large tooth and lower jaw NECK: Trachea midline. No JVD. CARDIOVASCULAR: Irregularly irregular. Systolic murmur appreciated. RESPIRATORY: Diminished breath sounds throughout. No wheezing GASTROINTESTINAL: Abdomen soft, non-tender, nondistended. MUSCULOSKELETAL: Left forearm AV fistula. Positive thrill and bruit. No lower extremity edema. NEUROLOGICAL: Awake and alert. Speech is soft and mumbled. Motor grossly within normal limits, follows commands. Medications and IVs Current Medications Medications (Trade) Dose Ordered Sig/Jamal Route Start Time Stop Time Status Last Admin (NS Flush) 2 ml UNSCH PRN IVF 06/04/17 17:45 06/04/17 18:06 Miscellaneous Information 1 Q361D XX 06/04/17 20:30 06/04/17 22:15 (Chlorhexidine 2% Cloth) 3 pack Taper DAILY@04 TOP 06/05/17 04:00 06/01/18 03:59 06/05/17 03:04 (Chlorhexidine 2% Cloth) 3 pack UNSCH PRN TOP 06/04/17 20:30 (Zyloprim) 100 mg DAILY PO 06/05/17 09:00 06/07/17 10:42 (Cordarone) 400 mg TIDPC PO 06/05/17 09:30 06/06/17 18:19 (Sensipar) 30 mg DAILY PO 06/05/17 09:00 06/07/17 10:41 (Lanoxin) 0.125 mg Q48H PO 06/04/17 23:00 06/06/17 23:43 (Renvela) 2,400 mg TID PO 06/05/17 09:00 06/07/17 10:40 Sodium Chloride 1,000 ml @ 0 mls/hr Q0M PRN OTHER 06/04/17 22:37 (Heparin Inj) 8,000 units UNSCH PRN IV FLUSH 06/04/17 22:45 Sodium Chloride 1,000 ml @ 200 mls/hr Q5H PRN IV 06/04/17 22:37 Sodium Chloride 1,000 ml @ 0 mls/hr Q0M PRN OTHER 06/04/17 22:37 (Mannitol Inj) 12.5 gm UNSCH PRN IV 06/04/17 22:45 Albumin Human 100 ml @ 60 mls/hr UNSCH PRN IV 06/04/17 22:45 06/05/17 00:19 (NS Flush) 5 ml UNSCH PRN IV FLUSH 06/04/17 22:45 (Heparin Inj) UNSCH PRN .XX 06/04/17 22:45 (Gentamicin Inj) 20 mg UNSCH PRN OTHER 06/04/17 22:45 (Zofran Inj) 4 mg UNSCH PRN IV PUSH 06/04/17 22:45 (Benadryl) 25 mg UNSCH PRN PO 06/04/17 22:45 (Nitrostat Sl) 0.4 mg UNSCH PRN SL 06/04/17 22:45 (Catapres) 0.1 mg UNSCH PRN PO 06/04/17 22:45 (Epogen Inj) 10,000 units UNSCH PRN IV PUSH 06/04/17 22:45 (Gelfoam 12 Mm/7 Mm Top) 1 foam UNSCH PRN TOP 06/04/17 22:45 06/05/17 00:18 Phenylephrine HCl 160 mg/Dextrose 500 ml @ 7.5 mls/hr TITRATE PRN IV 06/04/17 22:30 06/04/17 23:28 (Brethine Inj) 1 mg UNSCH PRN SQ 06/04/17 22:30 (Bactroban Nasal 2% Oint) 1 applic Taper BID EACH NARE 06/05/17 21:00 06/01/18 20:59 06/07/17 10:39 (Duoneb Neb) 1 ampule Q6HR NEB NEB 06/05/17 22:00 06/07/17 07:31 (Tylenol 650 Mg/ 20 ml Liq) 650 mg Q6H PRN PO 06/05/17 17:00 (Hycet 325-7.5 Mg Liq) 15 ml Q6H PRN PO 06/05/17 17:00 06/06/17 21:08 (D50w (Vial) Inj) 50 ml UNSCH PRN IV PUSH 06/05/17 17:00 (Glucagon Inj) 1 mg UNSCH PRN OTHER 06/05/17 17:00 (NovoLIN R SUPPLEMENTAL SCALE) 1 ACHS SLIDING SCALE SQ 06/05/17 17:00 (Protonix Inj) 40 mg Q24H IV PUSH 06/07/17 14:00 A/P Problem List: (1) Hypotension ICD Code: I95.9 - Hypotension, unspecified Status: Acute (2) Coagulopathy ICD Code: D68.9 - Coagulation defect, unspecified (3) Acute exacerbation of CHF (congestive heart failure) ICD Code: I50.9 - Heart failure, unspecified (4) Pulmonary edema ICD Code: J81.1 - Chronic pulmonary edema Status: Acute (5) GI bleed ICD Code: K92.2 - Gastrointestinal hemorrhage, unspecified Status: Acute (6) Anemia ICD Code: D64.9 - Anemia Status: Acute (7) Supratherapeutic INR ICD Code: R79.1 - Abnormal coagulation profile Status: Acute (8) Atrial fibrillation ICD Code: I48.91 - Unspecified atrial fibrillation (9) End stage renal disease on dialysis ICD Code: N18.6 - End stage renal disease on dialysis; Z99.2 - Dependence on renal dialysis Status: Acute (10) CAD (coronary artery disease) ICD Code: I25.10 - Atherosclerotic heart disease of [place] coronary artery without angina pectoris (11) DM2 (diabetes mellitus, type 2) ICD Code: E11.9 - DM2 (diabetes mellitus, type 2) Status: Acute (12) Hypertension ICD Code: I10 - Hypertension Status: Chronic (13) Severe aortic valve stenosis ICD Code: I35.0 - Nonrheumatic aortic (valve) stenosis (14) C. difficile diarrhea ICD Code: A04.72 - Enterocolitis due to Clostridium difficile, not specified as recurrent Status: Acute Assessment and Plan Acute blood loss anemia Anemia of chronic kidney disease Supratherapeutic INR/warfarin toxicity GI consult appreciated. Received K Centra 2000 units in ED. Given 2 units PRBC, 2 units of FFP and Vitamin K 10 mg IV 1. No further active bleeding. - Monitor CBC and transfuse as needed. - Holding warfarin and aspirin. Last INR 1.4. - follow up with GI. Bilateral pleural effusions Likely transient secondary to congestive heart failure. Repeat chest x-ray in am 3/-stable right pleural effusion and cardiomegaly. - Nasal cannula oxygen to keep oxygen saturation above 92%. - Albuterol/ipratropium aerosols every 6 hours with albuterol aerosols every 2 hours as needed dyspnea. - fluid removal with dialysis. - IS. Severe aortic stenosis Congestive heart failure/diastolic Atrial fibrillation Coronary artery disease/80% LAD lesion to 03/21 cardiac catheterization Hypertension History of PFO - Hold diltiazem PO 60 mg every 6 hours. - Hold warfarin in light of acute blood loss anemia. Hold aspirin for the same reasons. - Continue digoxin 0.25 mg every 48 hours. Dig level 2.4. Hold 06/07 and check level in AM. - Cardiology Dr. Ortiz and Dr. Garcia. Evaluated for PCI/TAVR March/2017. Need his teeth extracted prior to any surgical intervention. Malnutrition History of C. difficile colitis. GI is okay to advance diet. - Patient is currently on pantoprazole IV. - ADAT. Follow up with speech therapy. Chronic kidney disease stage V End-stage renal disease on hemodialysis Wednesday//Wednesday - Nephrology Dr. Winters. - Currently on Cinacalcet at 30 mg p.o. daily for secondary hyperparathyroidism. - Sevelamer carbonate 2400 mg p.o. 3 times daily for hyperphosphatemia Diabetes mellitus Glucose on the low side. - Sliding scale insulin with Novulin R with Accu-Cheks before meals/at bedtime maintain euglycemia/medium regimen. - ADAT. Cervical myelopathy Moderate lumbar stenosis Previously evaluated by Dr. Fragoso/neurosurgery March/2017. Neurologically intact not requiring intervention at this time. High risk due to underlying cardiac issues. - Physical therapy evaluate and treat. Add OT. Chronic pain syndrome with chronic narcotic use Poor dentition Recurrent cardiogenic syncope - Acetaminophen 650 mg p.o. every 6 hours as needed fever - Hydrocodone/acetaminophen 7.5/325 liquid every 6 hours as needed. Patient is on hydrocodone/acetaminophen 5/325 at home. - Monitor neuro status. - Outpatient dental extraction needs to be followed up on. PROPH: Bilateral lower extremity SCDs Discharge Planning Awaiting clinical improvement Problem Qualifiers (1) Hypotension: Qualified Codes: I95.9 - Hypotension, unspecified (2) Pulmonary edema: Qualified Codes: J81.0 - Acute pulmonary edema (3) GI bleed: Qualified Codes: K92.2 - Gastrointestinal hemorrhage, unspecified (4) Anemia: Qualified Codes: D64.9 - Anemia, unspecified (5) Hypertension: Qualified Codes: I10 - Essential (primary) hypertension Bradley Laureano DO Jun 07, 2017 13:11
[2017-06-07] MEDS: PANTOPRAZOLE SODIUM 40 MG VIAL IV PUSH SCH (13:53)
[2017-06-07] MEDS ORDERED: ACETAMINOPHEN 325MG/HYDROcodone 7.5MG/15ML UDC PO PRN (15:00)
[2017-06-07] MEDS: LIDOCAINE 4% CREAM 5 GM TUBE TOPICAL SCH (18:00)
[2017-06-07] MEDS: COLLAGENASE OINT 30 GM TUBE TOPICAL SCH (18:00)
[2017-06-08] VITALS (13 sets, daily range): BP systolic 104–121; BP diastolic 53–62; PULSE 74–87; RESP 17–22; TEMP 97.4–100.2; O2SAT 47–100
[2017-06-08] MEDS: RESP: ALBUTEROL 2.5 MG/IPRATROPIUM 0.5 MG NEB (SCH) NEB ×3 (03:31→14:13)
[2017-06-08] MEDS: CHLORHEXIDINE GLUCONATE 2 % 1 PACK (2 CLOTHS) TOP SCH (04:00)
[2017-06-08 07:08] LABS: HEMATOCRIT 29.2 % (39.0-51.0); HEMOGLOBIN 9.6 GM/DL (13.0-17.0); MEAN CELL VOLUME 100.1 FL (80.0-100.0); MEAN PLATELET VOLUME 10.1 FL (7.0-11.0); PLATELET COUNT 204 TH/MM3 (150-450); RED BLOOD COUNT 2.92 MIL/MM3 (4.50-5.90); RED CELL DISTRIBUTION WIDTH 21.5 % (11.6-17.2); WHITE BLOOD COUNT 6.7 TH/MM3 (4.0-11.0)
[2017-06-08 07:57] LABS: BICARBONATE 30.5 MEQ/L (21.0-32.0); CREATININE 5.52 MG/DL (0.60-1.30); MAGNESIUM 2.6 MG/DL (1.5-2.5)
[2017-06-08] MEDS: INSULIN NovoLIN REGULAR SUPPLEMENTAL SCALE SQ SCH ×3 (08:00→17:00)
[2017-06-08 08:24] LABS: DIGOXIN 3.1 NG/ML (0.8-2.0)
[2017-06-08] MEDS: MUPIROCIN 2% OINT 1 APPLIC/GM SYR EACH NARE SCH ×2 (09:00→21:32)
[2017-06-08] MEDS: SEVELAMER CARBONATE 800 MG TAB PO SCH ×3 (09:00→18:00)
[2017-06-08] MEDS: CINACALCET HYDROCHLORIDE 30 MG TAB PO SCH (09:00)
[2017-06-08] MEDS: ALLOPURINOL 100 MG TAB PO SCH (09:00)
[2017-06-08] MEDS: AMIODARONE 200 MG TAB PO SCH ×3 (09:30→18:30)
--- NOTE | 2017-06-08 12:44 | HHI.NPPN ---
Subjective General Problems: Anemia Renal Failure: End Stage Renal Disease History of Present Illness Patient is a 76-year-old male with past medical history significant for severe aortic stenosis (peak 94, mean 55, NATA 0.5), recurrent congestive heart failure, coronary artery disease with LAD lesion, hypertension, on dialysis for end-stage renal disease, atrial fibrillation on warfarin, who was sent to the emergency department from [facility] for INR>13 and hemoglobin low. He denied any chest pain or dizziness, further ER workup revealed he had a hemoglobin of 6.5 INR was 13.6. BNP was elevated at 1209. Chest x-ray showed severe pulmonary vascular congestion and bilateral effusions. Patient has severe aortic stenosis, and had been seen by Dr. Ortiz and cardiothoracic surgeon Dr. Nielson before, plan is for PCI and TAVR once stable and prior to that patient needed teeth extracted, and was to follow up as OP with Dr. Santiago. I was notified of patient's clinical situation by ER Nurse practitioner. Because of pulmonary edema and need for blood products emergency dialysis was arranged and carried out last night. He has received 2 units of PRBC and 2 units of FFP. Also has received Vitamin K and Kcintra. This morning he is extremely lethargic and unable to provide any history Additional Remarks Patient is very weak and deconditioned. Resting in bed. Dialysis scheduled for today. (Prachi Huitron) Review of Systems General Constitutional: Fatigue (Prachi Huitron) Respiratory Lungs: SOB (Prachi Huitron) Objective Data Data Vital Signs Date Time Temp Pulse Resp B/P (MAP) Pulse Ox O2 Delivery O2 Flow Rate FiO2 06/08/17 08:23 95 Nasal Cannula 4.00 06/08/17 08:00 100.2 87 17 104/53 (70) 95 06/08/17 04:30 98.3 76 19 118/62 (80) 95 06/08/17 03:03 100 Nasal Cannula 3.00 06/08/17 00:50 97.4 80 18 115/60 (78) 96 06/07/17 23:09 18 06/07/17 22:43 100 Nasal Cannula 1.00 06/07/17 20:50 98.1 83 16 110/59 (76) 96 06/07/17 20:43 93 Nasal Cannula 4.00 06/07/17 18:04 79 06/07/17 16:00 98.7 86 17 103/52 (35) 93 (Prachi Huitron) -: 06/08/17 0533 06/08/17 0533 Physical Exam General Appearance: No Acute Distress, Malnourished (Prachi Huitron) Eyes Eye Exam: Pupils Equal (Prachi Huitron) Neck Neck Exam: Neck Supple (Prachi Huitron) Pulmonary Resp Exam: Clear Bilaterally (Prachi Huitron) Cardiology CV Exam: Irregular, Murmur (Prachi Huitron) Gastrointestinal/Abdomen GI Exam: Soft, Non-Tender, Bowel Sounds Present (Prachi Huitron) Extremeties Extremities Exam: No Edema (Prachi Huitron) Neurologic Neuro Exam: Moving All Extremities (Prachi Huitron) Assessment/Plan Problem List: (1) ESRD (end stage renal disease) on dialysis ICD Codes: N18.6 - End stage renal disease; Z99.2 - Dependence on renal dialysis Plan: usually dialyzes TTS. He was emergently dialyzed on Wednesday night due to pulmonary edema and need for blood products. Plan Avoid excessive IVF fluid administration. continue Cinacalcet at 30 mg p.o. daily for secondary hyperparathyroidism. Continue Sevelamer carbonate 2400 mg p.o. 3 times daily for hyperphosphatemia Epogen with dialysis Dialysis scheduled for today (2) Coagulopathy ICD Codes: D68.9 - Coagulation defect, unspecified Plan: Given FFP, Vitamin K, Kcentra. Improved. (3) Anemia ICD Codes: D64.9 - Anemia Status: Acute Plan: blood loss anemia, in the context of GI bleeding and coagulopathy. Hemoglobin has improved with blood transfusion. (4) Severe aortic valve stenosis ICD Codes: I35.0 - Nonrheumatic aortic (valve) stenosis Plan: need for surgical therapy (TAVR). Prognosis is very poor. (5) Atrial fibrillation ICD Codes: I48.91 - Unspecified atrial fibrillation Plan: He is on amiodarone. Was on Coumadin. (6) Pulmonary edema ICD Codes: J81.1 - Chronic pulmonary edema Status: Acute Plan: On O2 at 2 liters (Prachi Huitron) Problem List: (1) ESRD (end stage renal disease) on dialysis ICD Codes: N18.6 - End stage renal disease; Z99.2 - Dependence on renal dialysis Plan: usually dialyzes TTS. He was emergently dialyzed on Wednesday night due to pulmonary edema and need for blood products. Plan Avoid excessive IVF fluid administration. continue Cinacalcet at 30 mg p.o. daily for secondary hyperparathyroidism. Continue Sevelamer carbonate 2400 mg p.o. 3 times daily for hyperphosphatemia Epogen with dialysis Dialysis scheduled for today. Patient was seen by me around 3 pm. He was dialyzed and still has SOB, Requiring high O2, CXR noted. Possibly UF again tomorrow. Low BP is limitation for excessive fluid removal. (2) Coagulopathy ICD Codes: D68.9 - Coagulation defect, unspecified Plan: Given FFP, Vitamin K, Kcentra. Improved. (3) Anemia ICD Codes: D64.9 - Anemia Status: Acute Plan: blood loss anemia, in the context of GI bleeding and coagulopathy. Hemoglobin has improved with blood transfusion. (4) Severe aortic valve stenosis ICD Codes: I35.0 - Nonrheumatic aortic (valve) stenosis Plan: need for surgical therapy (TAVR). Prognosis is very poor. (5) Atrial fibrillation ICD Codes: I48.91 - Unspecified atrial fibrillation Plan: He is on amiodarone. Was on Coumadin. (6) Pulmonary edema ICD Codes: J81.1 - Chronic pulmonary edema Status: Acute Plan: On O2 at 2 liters (Quiana Mayers MD) Problem Qualifiers (1) Anemia: Qualified Codes: D64.9 - Anemia, unspecified (2) Pulmonary edema: Qualified Codes: J81.0 - Acute pulmonary edema Prachi Huitron Jun 08, 2017 12:44 Quiana Mayers MD Jun 08, 2017 21:19
[2017-06-08] MEDS: ALBUMIN 25% INJ 100 ML IV PRN (13:38)
[2017-06-08] MEDS: GELATIN 12 MM/7 MM FOAM TOP PRN (13:38)
--- NOTE | 2017-06-08 14:19 | HHI.PR ---
Subjective Remarks As per RN the patient is lethargic. The patient complains of buttocks pain. Patient had a low-grade temp of 100.2. The patient denies chest pain or shortness of breath however patient noted to be coughing. Objective Vitals Vital Signs Date Time Temp Pulse Resp B/P (MAP) Pulse Ox O2 Delivery O2 Flow Rate FiO2 06/08/17 08:23 95 Nasal Cannula 4.00 06/08/17 08:00 100.2 87 17 104/53 (70) 95 06/08/17 04:30 98.3 76 19 118/62 (80) 95 06/08/17 03:03 100 Nasal Cannula 3.00 06/08/17 00:50 97.4 80 18 115/60 (78) 96 06/07/17 23:09 18 06/07/17 22:43 100 Nasal Cannula 1.00 06/07/17 20:50 98.1 83 16 110/59 (76) 96 06/07/17 20:43 93 Nasal Cannula 4.00 06/07/17 18:04 79 06/07/17 16:00 98.7 86 17 103/52 (69) 93 I/O 06/07/17 06/07/17 06/07/17 06/08/17 06/08/17 06/08/17 07:00 15:00 23:00 07:00 15:00 23:00 Intake Total 336 ml 99 ml 400 ml 100 ml Output Total 0 ml 0 ml 2500 ml Balance 336 ml 99 ml 400 ml 100 ml -2500 ml Intake Oral 236 ml 400 ml 100 ml IV Total 100 ml 99 ml Output Urine Total 0 ml 0 ml Hemodialysis 2500 ml # Bowel Movements 0 0 Result Diagram: 06/08/17 0533 06/08/17 0533 Imaging Last Impressions Chest X-Ray 06/06/17 0600 Signed Impressions: Service Date/Time: Tuesday, June 06, 2017 02:34 - CONCLUSION: Stable left lung consolidation and right pleural effusion. Dillan Leonard MD Objective Remarks GENERAL: Moderate distress due to pain. SKIN: Multiple pressure ulcers 15 cm in diameter pressure ulcer on the buttock, two other open areas on either side. HEAD: Atraumatic. Normocephalic. EYES: Pupils equal and round. No scleral icterus. No injection or drainage. ENT: No nasal bleeding or discharge. Mucous membranes dry pale. Extremely poor dentition with one large tooth and lower jaw NECK: Trachea midline. No JVD. CARDIOVASCULAR: Irregularly irregular. Systolic murmur appreciated. RESPIRATORY: Diminished breath sounds throughout. No wheezing GASTROINTESTINAL: Abdomen soft, non-tender, nondistended. MUSCULOSKELETAL: Left forearm AV fistula. Positive thrill and bruit. No lower extremity edema. NEUROLOGICAL: Awake and alert. Speech is soft and mumbled. Motor grossly within normal limits, follows commands. Procedures Current Medications Medications (Trade) Dose Ordered Sig/Jamal Route Start Time Stop Time Status Last Admin (NS Flush) 2 ml UNSCH PRN IVF 06/04/17 17:45 06/04/17 18:06 Miscellaneous Information 1 Q361D XX 06/04/17 20:30 06/04/17 22:15 (Chlorhexidine 2% Cloth) 3 pack Taper DAILY@04 TOP 06/05/17 04:00 06/01/18 03:59 06/05/17 03:04 (Chlorhexidine 2% Cloth) 3 pack UNSCH PRN TOP 06/04/17 20:30 (Zyloprim) 100 mg DAILY PO 06/05/17 09:00 06/07/17 10:42 (Cordarone) 400 mg TIDPC PO 06/05/17 09:30 06/07/17 17:38 (Sensipar) 30 mg DAILY PO 06/05/17 09:00 06/07/17 10:41 (Lanoxin) 0.125 mg Q48H PO 06/04/17 23:00 Future Hold 06/06/17 23:43 (Renvela) 2,400 mg TID PO 06/05/17 09:00 06/07/17 17:39 Sodium Chloride 1,000 ml @ 0 mls/hr Q0M PRN OTHER 06/04/17 22:37 (Heparin Inj) 8,000 units UNSCH PRN IV FLUSH 06/04/17 22:45 Sodium Chloride 1,000 ml @ 200 mls/hr Q5H PRN IV 06/04/17 22:37 Sodium Chloride 1,000 ml @ 0 mls/hr Q0M PRN OTHER 06/04/17 22:37 (Mannitol Inj) 12.5 gm UNSCH PRN IV 06/04/17 22:45 Albumin Human 100 ml @ 60 mls/hr UNSCH PRN IV 06/04/17 22:45 06/08/17 13:38 (NS Flush) 5 ml UNSCH PRN IV FLUSH 06/04/17 22:45 (Heparin Inj) UNSCH PRN .XX 06/04/17 22:45 (Gentamicin Inj) 20 mg UNSCH PRN OTHER 06/04/17 22:45 (Zofran Inj) 4 mg UNSCH PRN IV PUSH 06/04/17 22:45 (Benadryl) 25 mg UNSCH PRN PO 06/04/17 22:45 (Nitrostat Sl) 0.4 mg UNSCH PRN SL 06/04/17 22:45 (Catapres) 0.1 mg UNSCH PRN PO 06/04/17 22:45 (Epogen Inj) 10,000 units UNSCH PRN IV PUSH 06/04/17 22:45 06/08/17 13:38 (Gelfoam 12 Mm/7 Mm Top) 1 foam UNSCH PRN TOP 06/04/17 22:45 06/08/17 13:38 Phenylephrine HCl 160 mg/Dextrose 500 ml @ 7.5 mls/hr TITRATE PRN IV 06/04/17 22:30 06/04/17 23:28 (Brethine Inj) 1 mg UNSCH PRN SQ 06/04/17 22:30 (Bactroban Nasal 2% Oint) 1 applic Taper BID EACH NARE 06/05/17 21:00 06/01/18 20:59 06/07/17 22:08 (Duoneb Neb) 1 ampule Q6HR NEB NEB 06/05/17 22:00 06/08/17 08:20 (Tylenol 650 Mg/ 20 ml Liq) 650 mg Q6H PRN PO 06/05/17 17:00 (D50w (Vial) Inj) 50 ml UNSCH PRN IV PUSH 06/05/17 17:00 (Glucagon Inj) 1 mg UNSCH PRN OTHER 06/05/17 17:00 (NovoLIN R SUPPLEMENTAL SCALE) 1 ACHS SLIDING SCALE SQ 06/05/17 17:00 (Protonix Inj) 40 mg Q24H IV PUSH 06/07/17 14:00 06/07/17 13:53 (Hycet 325-7.5 Mg Liq) 15 ml Q4H PRN PO 06/07/17 15:00 06/07/17 22:08 (L-M-X 4 Cream) 1 applic DAILY TOPICAL 06/07/17 18:00 (Santyl Oint) 1 applic DAILY TOPICAL 06/07/17 18:00 (Coumadin) 1 mg DAILY@16 PO 06/08/17 16:00 Medications and IVs Current Medications Medications (Trade) Dose Ordered Sig/Jamal Route Start Time Stop Time Status Last Admin (NS Flush) 2 ml UNSCH PRN IVF 06/04/17 17:45 06/04/17 18:06 Miscellaneous Information 1 Q361D XX 06/04/17 20:30 06/04/17 22:15 (Chlorhexidine 2% Cloth) 3 pack Taper DAILY@04 TOP 06/05/17 04:00 06/01/18 03:59 06/05/17 03:04 (Chlorhexidine 2% Cloth) 3 pack UNSCH PRN TOP 06/04/17 20:30 (Zyloprim) 100 mg DAILY PO 06/05/17 09:00 06/07/17 10:42 (Cordarone) 400 mg TIDPC PO 06/05/17 09:30 06/07/17 17:38 (Sensipar) 30 mg DAILY PO 06/05/17 09:00 06/07/17 10:41 (Lanoxin) 0.125 mg Q48H PO 06/04/17 23:00 Future Hold 06/06/17 23:43 (Renvela) 2,400 mg TID PO 06/05/17 09:00 06/07/17 17:39 Sodium Chloride 1,000 ml @ 0 mls/hr Q0M PRN OTHER 06/04/17 22:37 (Heparin Inj) 8,000 units UNSCH PRN IV FLUSH 06/04/17 22:45 Sodium Chloride 1,000 ml @ 200 mls/hr Q5H PRN IV 06/04/17 22:37 Sodium Chloride 1,000 ml @ 0 mls/hr Q0M PRN OTHER 06/04/17 22:37 (Mannitol Inj) 12.5 gm UNSCH PRN IV 06/04/17 22:45 Albumin Human 100 ml @ 60 mls/hr UNSCH PRN IV 06/04/17 22:45 06/08/17 13:38 (NS Flush) 5 ml UNSCH PRN IV FLUSH 06/04/17 22:45 (Heparin Inj) UNSCH PRN .XX 06/04/17 22:45 (Gentamicin Inj) 20 mg UNSCH PRN OTHER 06/04/17 22:45 (Zofran Inj) 4 mg UNSCH PRN IV PUSH 06/04/17 22:45 (Benadryl) 25 mg UNSCH PRN PO 06/04/17 22:45 (Nitrostat Sl) 0.4 mg UNSCH PRN SL 06/04/17 22:45 (Catapres) 0.1 mg UNSCH PRN PO 06/04/17 22:45 (Epogen Inj) 10,000 units UNSCH PRN IV PUSH 06/04/17 22:45 06/08/17 13:38 (Gelfoam 12 Mm/7 Mm Top) 1 foam UNSCH PRN TOP 06/04/17 22:45 06/08/17 13:38 Phenylephrine HCl 160 mg/Dextrose 500 ml @ 7.5 mls/hr TITRATE PRN IV 06/04/17 22:30 06/04/17 23:28 (Brethine Inj) 1 mg UNSCH PRN SQ 06/04/17 22:30 (Bactroban Nasal 2% Oint) 1 applic Taper BID EACH NARE 06/05/17 21:00 06/01/18 20:59 06/07/17 22:08 (Duoneb Neb) 1 ampule Q6HR NEB NEB 06/05/17 22:00 06/08/17 08:20 (Tylenol 650 Mg/ 20 ml Liq) 650 mg Q6H PRN PO 06/05/17 17:00 (D50w (Vial) Inj) 50 ml UNSCH PRN IV PUSH 06/05/17 17:00 (Glucagon Inj) 1 mg UNSCH PRN OTHER 06/05/17 17:00 (NovoLIN R SUPPLEMENTAL SCALE) 1 ACHS SLIDING SCALE SQ 06/05/17 17:00 (Protonix Inj) 40 mg Q24H IV PUSH 06/07/17 14:00 06/07/17 13:53 (Hycet 325-7.5 Mg Liq) 15 ml Q4H PRN PO 06/07/17 15:00 06/07/17 22:08 (L-M-X 4 Cream) 1 applic DAILY TOPICAL 06/07/17 18:00 (Santyl Oint) 1 applic DAILY TOPICAL 06/07/17 18:00 (Coumadin) 1 mg DAILY@16 PO 06/08/17 16:00 A/P Problem List: (1) Hypotension ICD Code: I95.9 - Hypotension, unspecified Status: Acute (2) Coagulopathy ICD Code: D68.9 - Coagulation defect, unspecified (3) Acute exacerbation of CHF (congestive heart failure) ICD Code: I50.9 - Heart failure, unspecified (4) Pulmonary edema ICD Code: J81.1 - Chronic pulmonary edema Status: Acute (5) GI bleed ICD Code: K92.2 - Gastrointestinal hemorrhage, unspecified Status: Acute (6) Anemia ICD Code: D64.9 - Anemia Status: Acute (7) Supratherapeutic INR ICD Code: R79.1 - Abnormal coagulation profile Status: Acute (8) Atrial fibrillation ICD Code: I48.91 - Unspecified atrial fibrillation (9) End stage renal disease on dialysis ICD Code: N18.6 - End stage renal disease on dialysis; Z99.2 - Dependence on renal dialysis Status: Acute (10) CAD (coronary artery disease) ICD Code: I25.10 - Atherosclerotic heart disease of [place] coronary artery without angina pectoris (11) DM2 (diabetes mellitus, type 2) ICD Code: E11.9 - DM2 (diabetes mellitus, type 2) Status: Acute (12) Hypertension ICD Code: I10 - Hypertension Status: Chronic (13) Severe aortic valve stenosis ICD Code: I35.0 - Nonrheumatic aortic (valve) stenosis (14) C. difficile diarrhea ICD Code: A04.72 - Enterocolitis due to Clostridium difficile, not specified as recurrent Status: Acute (15) Low grade fever ICD Code: R50.9 - Fever, unspecified Status: Acute (16) Encephalopathy acute ICD Code: G93.40 - Encephalopathy, unspecified Status: Acute (17) Decubitus ulcer of sacral region, unstageable ICD Code: L89.150 - Pressure ulcer of sacral region, unstageable Status: Chronic Assessment and Plan Acute blood loss anemia Anemia of chronic kidney disease Supratherapeutic INR/warfarin toxicity GI consulted. Received K Centra 2000 units in ED. Given 2 units PRBC, 2 units of FFP and Vitamin K 10 mg IV 1. No further active bleeding. - Monitor CBC and transfuse as needed. - Holding warfarin and aspirin. Last INR 1.4. - follow up with GI. 06/08 hemoglobin remained stable. Patient cleared to be discharged by GI. Has a case with GI. Okay to resume Coumadin. Bilateral pleural effusions Likely transient secondary to congestive heart failure. Repeat chest x-ray in am 06/06-stable right pleural effusion and cardiomegaly. - Nasal cannula oxygen to keep oxygen saturation above 92%. - Albuterol/ipratropium aerosols every 6 hours with albuterol aerosols every 2 hours as needed dyspnea. - fluid removal with dialysis. - IS. Severe aortic stenosis Congestive heart failure/diastolic Atrial fibrillation Coronary artery disease/80% LAD lesion to 03/21 cardiac catheterization Hypertension History of PFO - Diltiazem and warfarin held in light of acute blood loss anemia. Aspirin was also held initially. - Continue digoxin 0.25 mg every 48 hours. Dig level 2.4. Hold 06/07 and check level in AM. - Cardiology Dr. Ortiz and Dr. Garcia. Evaluated for PCI/TAVR March/2017. Need his teeth extracted prior to any surgical intervention. 06/08 digoxin level elevated at 3.1. Continue to hold digoxin. Recheck level in a.m. Malnutrition History of C. difficile colitis. GI is okay to advance diet. - Patient is currently on pantoprazole IV. - ADAT. Follow up with speech therapy. 06/08 End-stage renal disease on hemodialysis Wednesday//Wednesday - Nephrology Dr. Winters. - Currently on Cinacalcet at 30 mg p.o. daily for secondary hyperparathyroidism. - Sevelamer carbonate 2400 mg p.o. 3 times daily for hyperphosphatemia Diabetes mellitus Glucose on the low side. - Sliding scale insulin with Novulin R with Accu-Cheks before meals/at bedtime maintain euglycemia/medium regimen. - ADAT. Cervical myelopathy Moderate lumbar stenosis Previously evaluated by Dr. Fragoso/neurosurgery March/2017. Neurologically intact not requiring intervention at this time. High risk due to underlying cardiac issues. - Physical therapy evaluate and treat. Add OT. Chronic pain syndrome with chronic narcotic use Poor dentition Recurrent cardiogenic syncope - Acetaminophen 650 mg p.o. every 6 hours as needed fever - Hydrocodone/acetaminophen 7.5/325 liquid every 6 hours as needed. Patient is on hydrocodone/acetaminophen 5/325 at home. - Monitor neuro status. - Outpatient dental extraction needs to be followed up on. Low-grade fever and encephalopathy. - As per RN the patient more lethargic today. Patient also complaining of increased buttocks pain. - Check urinalysis, chest x-ray, check blood cultures. -Sacral decub the distal posterior has a smelly smell. Will start on IV Zosyn empirically and consult ID. Unstageable sacral decub ulcer. Continue wound care. ID consultation PROPH: Bilateral lower extremity SCDs, on Coumadin. Discharge Planning Patient with low-grade fever, after mental status, possible infected decub ulcer. Pending ID consultation. Problem Qualifiers (1) Hypotension: Qualified Codes: I95.9 - Hypotension, unspecified (2) Pulmonary edema: Qualified Codes: J81.0 - Acute pulmonary edema (3) GI bleed: Qualified Codes: K92.2 - Gastrointestinal hemorrhage, unspecified (4) Anemia: Qualified Codes: D64.9 - Anemia, unspecified (5) Hypertension: Qualified Codes: I10 - Essential (primary) hypertension Johan Madden MD Jun 08, 2017 14:19
--- NOTE | 2017-06-08 15:02 | RADRPT ---
EXAM DATE/TIME: 06/08/2017 14:32 [facility] COMPARISON: CHEST SINGLE AP, June 06, 2017, 2:34. INDICATIONS : Short of breath. MEDICAL HISTORY : Hypertension. Dialysis. SURGICAL HISTORY : AV fistula. Pilonidial cyst. ENCOUNTER: Subsequent ACUITY: 3 days PAIN SCORE: 0/10 LOCATION: Bilateral chest FINDINGS: A single portable frontal view the chest shows small to moderate bilateral pleural effusions with bib asilar intra-alveolar infiltrates. Heart is enlarged. Pulmonary vascular engorgement noted. Aorta is calcified and quite tortuous. CONCLUSION: Radiographic findings most consistent with pulmonary edema. Dillan Huddleston Jr., MD on June 08, 2017 at 14:56 Board Certified Radiologist. This report was verified electronically.
[2017-06-08] MEDS: PANTOPRAZOLE SODIUM 40 MG VIAL IV PUSH SCH (15:36)
[2017-06-08] MEDS: LIDOCAINE 4% CREAM 5 GM TUBE TOPICAL SCH (15:38)
[2017-06-08] MEDS: COLLAGENASE OINT 30 GM TUBE TOPICAL SCH (15:44)
[2017-06-08] MEDS: PIPERACIL-TAZO 2.25 GM PREMIX 50 ML IV SCH (16:00)
[2017-06-08] MEDS: WARFARIN SOD 1 MG TAB PO SCH (16:00)
--- NOTE | 2017-06-08 16:32 | MB ---
cc: Timothy Almanza MD DATE OF CONSULT: 06/08/2017 REFERRING PHYSICIAN: Johan Fisher MD REASON: Low-grade fever, reported altered mental status. Sacral decubitus ulcer. HISTORY OF PRESENT ILLNESS: This is a 76-year-old white male who was admitted to the hospital on 06/04/2017. Patient as admitted to the hospital because of increased INR, which was greater than 13, and low hemoglobin. Patient has a history of end-stage renal disease and undergoes hemodialysis 3 days a week. He also had a chest x-ray, which showed [id number] pulmonary edema. During hospitalization, his workup revealed severe aortic stenosis. Patient is anticipated to have aortic valve replacement, but he needs to have teeth extracted prior to any surgical intervention. He was noted to have significant decrease in mental status today. He was waking up and answering questions earlier. This was noted to be a change. He apparently complained of pain in his buttock area yesterday. He was verbally responsive yesterday as well. The patient went for hemodialysis and when he came back, he was still lethargic. He was noted to have decreased blood pressure in the 80s earlier. Currently, he is verbalizing very little for me. He knows he is in [facility], but when I ask him questions, he has difficulty barely opening his mouth to answer. He drifts back to sleep after briefly opening his eyes when I ask him a question. Patient has a temperature of 100.2 degrees, which is a sole elevated temperature since admission. His white blood cell count is normal and has been normal since admission. The patient has a decubitus ulceration at the sacrum. It is foul smelling. Noted to have congestive heart failure when he was admitted and was given emergent dialysis. PAST MEDICAL HISTORY: Hypertension, diabetes mellitus type 2, hyperlipidemia, atrial fibrillation, end-stage renal disease, on hemodialysis 3 days a week, aortic stenosis, anemia of chronic disease, history of C. difficile, AV fistula, pilonidal cyst. ALLERGIES: NO KNOWN DRUG ALLERGIES. MEDICATIONS: Coumadin, Protonix, insulin, Cordarone, Zyloprim, Sensipar, Renvela, Epogen. SOCIAL HISTORY: No tobacco, no alcohol, no illicit drugs. FAMILY HISTORY: Noncontributory. REVIEW OF SYSTEMS: Unable to obtain because of the patient's current mental status. PHYSICAL EXAMINATION: GENERAL: This is an elderly, chronically ill-appearing male who is very lethargic. He is on 6 L oxygen via nasal cannula. He barely responds to verbal stimuli. VITAL SIGNS: Include temperature 100.2, BP 104/53 earlier. HEENT: The head is atraumatic. Extraocular movements appear grossly intact. No icterus. Oropharynx moist mucosa. NECK: Supple without adenopathy. LUNGS: Decreased breath sounds. Slight rhonchi at the bases. HEART: Irregular rate and rhythm. A III-IV/ systolic murmur at the left sternal border. ABDOMEN: Bowel sounds present, diminished bowel sounds, soft, no tenderness appreciated. BACK: Has a sacral decubitus ulceration with francis necrotic-appearing tissue within an ulcer crater, which is very foul smelling and is surrounded by denuded skin at the buttocks. There is slight bloody drainage on the dressing. RECTAL: Not performed. EXTREMITIES: No clubbing, cyanosis or edema. SKIN: No diffuse rash. NEUROLOGIC: Difficult to assess. Patient is obtunded. PSYCHIATRIC: Unable to assess. LABORATORY DATA: WBC 6.7, platelet count 204, hemoglobin 9.6. Creatinine 5.52, estimated GFR 10, sodium 140. DIAGNOSTIC DATA: Chest x-ray shows findings consistent with pulmonary edema. IMPRESSION: 1. Infected sacral decubitus ulceration. 2. Altered mental status, likely secondary to infection. 3. Sepsis syndrome suggested by low-grade fever along with altered mental status and low blood pressure from earlier today. 4. End-stage renal disease, on hemodialysis. 5. Severe aortic stenosis. 6. Pulmonary edema. RECOMMENDATIONS: 1. Begin treatment with piperacillin/tazobactam to cover pseudomonas and also anaerobic organisms. 2. Request culture of the wound. 3. Request plastic surgeon evaluation for debridement of this decubitus ulceration. 4. Monitor temperature. 5. Monitor blood cultures (ordered earlier today). Thank you for this consultation. I will follow the patient's progress and make further recommendations on followup if necessary. MD CHRISTINA Garcia/IESHA , 03:53 PM , 04:29 PM
[2017-06-08] MEDS ORDERED: MIDAZOLAM HCL 5 MG/ML VIAL (1 ML) ONE (18:06)
[2017-06-08] MEDS ORDERED: ROCURONIUM INJ 50 MG/5 ML VIAL ONE (18:06)
[2017-06-08] MEDS ORDERED: PHENYLEPHRINE HCL 10 MG/ML VIAL ONE (18:18)
[2017-06-08] MEDS ORDERED: RESP: ALBUTEROL 2.5 MG/IPRATROPIUM 0.5 MG NEB (PRN) INH (18:30)
[2017-06-08] MEDS ORDERED: DEXTROSE 50% IN WATER 50 ML VIAL(D50) IV PUSH PRN (18:30)
[2017-06-08] MEDS: PHENYLEPHRINE INJ 160 MG in DEXTROSE 5% IN WATE 500 ML INJ 484 ML IV PRN ×2 (18:30)
--- NOTE | 2017-06-08 19:33 | HHI.CCPN ---
Subjective Remarks/Hospital Course Patient is a 76-year-old male with past medical history significant for severe aortic stenosis (peak 94, mean 55, NATA 0.5), recurrent congestive heart failure, coronary artery disease with LAD lesion, hypertension, on dialysis for end-stage renal disease, atrial fibrillation on warfarin, who was sent to the emergency department from [facility] for INR>13 and hemoglobin low. He denied any chest pain or dizziness, further ER workup revealed he had a hemoglobin of 6.5 INR was 13.6. BNP was elevated at 1209. Chest x-ray showed severe pulmonary vascular congestion and bilateral effusions. Patient has severe aortic stenosis, and had been seen by Dr. Ortiz and cardiothoracic surgeon Dr. Nielson before, plan is for PCI and TAVR once stable and prior to that patient needed teeth extracted, and was to follow up as OP with Dr. Santiago. Given GI bleed and anemia patient is receiving 2 units of PRBC , 2 units of FFP already received vitamin K 10 mg IV. I have also ordered Kcentra as he is hemodynamically unstable, and due to end-stage renal disease will not be able to handle multiple units of FFP. Nephrology Dr. Winters had been contacted, due to pulmonary edema patient will get stat hemodialysis and received blood products at the same time I evaluated the patient in the ICU. Patient is just starting to receive Kcentra. Hemodialysis is about the start blood pressure is low systolic blood pressure 65-70. I will start Yosef-Synephrine to maintain map about 65 and to facilitate hemodialysis, transfuse blood products. Patient's prognosis is guarded. He is mildly encephalopathic at this time Subjective 3/3: Currently resting in bed. Vasopressors have been discontinued. GI is cleared for clear liquid diet. Remains mildly encephalopathic. 3/4: Intermittent bouts of confusion. Follows commands, no vasopressors support needed. Diet has been advanced. Currently continues on Protonix infusion per GI management. 06/08: RECONSULT NOTE: We consulted for acute respiratory failure. Patient well- known to the intensive care medicine service with 3 of severe aortic stenosis with a mean gradient of 55 and a peak velocity greater than 4.1 m/s, end stage renal disease, decubitus ulcer, poor dentition, who is very recently been admitted on previous occasions for cardiogenic shock secondary to severe aortic stenosis and rapid ventricular response of his atrial fibrillation. At that time the patient was recommended to undergo complete full mouth dental extraction followed by balloon aortic valvuloplasty, bare-metal stent to the proximal LAD, in early preparation for workup for transcatheter aortic valve replacement. However, the patient never made it to any of these interventions because he began with GI bleeding and an INR of 13 and was admitted on 06/04 4 acute GI bleeding. He was stabilized at that point and eventually transferred to the floor. Today he presents with new onset fever for which infectious disease service was consulted and started empiric Zosyn, with a presumable source of his decubitus ulcer. Despite this, the patient continued to decline and became acutely altered as well as acutely hypoxemic requiring nonrebreather and then bag mask assistance. He was rapid response from the floor and emergently transferred to the ICU where I evaluated the patient. The patient was in acute respiratory failure and required emergent intubation, see separate procedure note for details. No information is available from the patient due to his acute condition. ROS is unobtainable. Objective Vital Signs Date Time Temp Pulse Resp B/P (MAP) Pulse Ox O2 Delivery O2 Flow Rate FiO2 06/08/17 16:30 98.7 75 19 107/55 (72) 95 06/08/17 14:33 Venturi Mask 6.00 50 Intake and Output 06/08/17 06/08/17 06/09/17 08:00 16:00 00:00 Intake Total 100 ml Output Total 0 ml 2500 ml Balance 100 ml -2500 ml Result Diagram: 06/08/17 0533 06/08/17 0533 Imaging Last Impressions Chest X-Ray 06/06/17599 Signed Impressions: Service Date/Time: Tuesday, June 06, 2017 02:34 - CONCLUSION: Stable left lung consolidation and right pleural effusion. Dillan Leonard MD Last Impressions Chest X-Ray 06/05/17599 Signed Impressions: Service Date/Time: Monday, June 05, 2017 04:08 - CONCLUSION: Stable right pleural effusion and left lower lung consolidation. Dillan Leonard MD Procedures Current Medications Medications (Trade) Dose Ordered Sig/Jamal Route Start Time Stop Time Status Last Admin (NS Flush) 2 ml UNSCH PRN IVF 06/04/17 17:45 3/2/18 18:06 Miscellaneous Information 1 Q361D XX 06/04/17 20:30 06/04/17 22:15 (Chlorhexidine 2% Cloth) 3 pack Taper DAILY@04 TOP 06/05/17 04:00 06/01/18 03:59 06/05/17 03:04 (Chlorhexidine 2% Cloth) 3 pack UNSCH PRN TOP 06/04/17 20:30 (Zyloprim) 100 mg DAILY PO 06/05/17 09:00 06/07/17 10:42 (Cordarone) 400 mg TIDPC PO 06/05/17 09:30 06/07/17 17:38 (Sensipar) 30 mg DAILY PO 06/05/17 09:00 06/07/17 10:41 (Lanoxin) 0.125 mg Q48H PO 06/04/17 23:00 Future Hold 06/06/17 23:43 (Renvela) 2,400 mg TID PO 06/05/17 09:00 06/07/17 17:39 Sodium Chloride 1,000 ml @ 0 mls/hr Q0M PRN OTHER 06/04/17 22:37 (Heparin Inj) 8,000 units UNSCH PRN IV FLUSH 06/04/17 22:45 Sodium Chloride 1,000 ml @ 200 mls/hr Q5H PRN IV 06/04/17 22:37 Sodium Chloride 1,000 ml @ 0 mls/hr Q0M PRN OTHER 06/04/17 22:37 (Mannitol Inj) 12.5 gm UNSCH PRN IV 06/04/17 22:45 Albumin Human 100 ml @ 60 mls/hr UNSCH PRN IV 06/04/17 22:45 06/08/17 13:38 (NS Flush) 5 ml UNSCH PRN IV FLUSH 06/04/17 22:45 (Heparin Inj) UNSCH PRN .XX 06/04/17 22:45 (Gentamicin Inj) 20 mg UNSCH PRN OTHER 06/04/17 22:45 (Zofran Inj) 4 mg UNSCH PRN IV PUSH 06/04/17 22:45 (Benadryl) 25 mg UNSCH PRN PO 06/04/17 22:45 (Nitrostat Sl) 0.4 mg UNSCH PRN SL 06/04/17 22:45 (Catapres) 0.1 mg UNSCH PRN PO 06/04/17 22:45 (Epogen Inj) 10,000 units UNSCH PRN IV PUSH 06/04/17 22:45 06/08/17 13:38 (Gelfoam 12 Mm/7 Mm Top) 1 foam UNSCH PRN TOP 06/04/17 22:45 06/08/17 13:38 Phenylephrine HCl 160 mg/Dextrose 500 ml @ 7.5 mls/hr TITRATE PRN IV 06/04/17 22:30 06/04/17 23:28 (Brethine Inj) 1 mg UNSCH PRN SQ 06/04/17 22:30 (Bactroban Nasal 2% Oint) 1 applic Taper BID EACH NARE 06/05/17 21:00 06/01/18 20:59 06/07/17 22:08 (Duoneb Neb) 1 ampule Q6HR NEB NEB 06/05/17 22:00 06/08/17 08:20 (Tylenol 650 Mg/ 20 ml Liq) 650 mg Q6H PRN PO 06/05/17 17:00 (D50w (Vial) Inj) 50 ml UNSCH PRN IV PUSH 06/05/17 17:00 (Glucagon Inj) 1 mg UNSCH PRN OTHER 06/05/17 17:00 (NovoLIN R SUPPLEMENTAL SCALE) 1 ACHS SLIDING SCALE SQ 06/05/17 17:00 (Protonix Inj) 40 mg Q24H IV PUSH 06/07/17 14:00 06/07/17 13:53 (Hycet 325-7.5 Mg Liq) 15 ml Q4H PRN PO 06/07/17 15:00 06/07/17 22:08 (L-M-X 4 Cream) 1 applic DAILY TOPICAL 06/07/17 18:00 (Santyl Oint) 1 applic DAILY TOPICAL 06/07/17 18:00 (Coumadin) 1 mg DAILY@16 PO 06/08/17 16:00 Objective Remarks GENERAL: 76-year-old male lying in bed, unresponsive, obtunded, acute respiratory failure HEAD: Atraumatic. Normocephalic. EYES: Pupils equal and round. No scleral icterus. No injection or drainage. ENT: No nasal bleeding or discharge. Mucous membranes dry pale. Extremely poor dentition with one large tooth and lower jaw NECK: Trachea midline. Positive JVD above the level of the mandible CARDIOVASCULAR: Normal rate, irregularly irregular rhythm. There is A. fib by telemetry. Positive systolic murmur right upper sternal border. RESPIRATORY: Labored, using accessory muscles, bag mask assistance. Equal chest rise. GASTROINTESTINAL: Abdomen soft, non-tender, nondistended. no guarding MUSCULOSKELETAL: Left forearm AV fistula. Positive thrill and bruit. NEUROLOGICAL: Obtunded, encephalopathic, very weakly withdraws to pain, does not follow commands. A/P Assessment and Plan Assessment: 76-year-old male with end-stage severe aortic stenosis complicated by poor dentition, sacral decubitus ulcer, coronary artery disease with proximal LAD lesion which is currently unstented, acute GI bleeding. Now he has septic shock and acute respiratory failure. Critically ill. very poor prognosis. now with respiratory failure and septic shock: unlikely to be able to survive long enough to get decubitus and teeth intervened upon, then GI bleeding secured, then BMS to LAD, followed by balloon aortic valvuloplasty, followed by complete TAVR work-up. Much more likely to as an inpatient, or recent future as an outpatient. I have consulted palliative care to assist with goals of care as he is end-stage and unlikely to survive. Remains very critically ill and currently our goals are aggressive. NEURO/PSYCH: Acute metabolic encephalopathy Chronic pain syndrome with chronic narcotic use Poor dentition Acetaminophen 650 mg p.o. every 6 hours as needed fever Monitor neuro status closely Outpatient dental extraction needs to be followed up on, unfortunately has not been able to be completed. frequent neuro checks fentanyl prn for sedation RESP: Acute hypoxic respiratory failure Acute pulmonary Edema - vent bundle - hob elevated - nebs - likely combination of septic shock with multi-organ failure, pulmonary edema, volume overload. - wean fio2 for goal spo2 >90% - stat ABG - intubated emergently 06/08 - CXR post intubation CV: Severe aortic stenosis Congestive heart failure/diastolic + valvulopathy Atrial fibrillation Coronary artery disease/80% LAD lesion to 03/21 cardiac catheterization PFO with recent evidence of L-->R shunting. Septic Shock -Hold diltiazem PO 60 mg every 6, -Hold warfarin in light of acute blood loss anemia. Hold aspirin for the same reasons -hold digoxin -Cardiology Dr. Ortiz and Dr. Garcia. Evaluated for PCI/TAVR March/2017. Need his teeth extracted prior to any surgical intervention: unlikely to survive long enough to complete TAVR work-up. too many acute comorbidities. -Dr. Santiago was consulted last admission and recommended OP appointment which is reasonable, now too unstable to complete. - phenylephrine for goal map > 65mmHg. - at this point, with esrd and poor vasculature, risk:benefit of central access is in favor of piv's only for now. would likely have more complications from central access with this patient with ESRD and likely poor central access. GI: History of C. difficile colitis Acute protein calorie malnutrition- severe -OG tube. - renal tube feeds - dietary consult - very cachectic appearing. likely end-stage cardiac wasting. RENAL/: Chronic kidney disease stage V/end-stage renal disease on hemodialysis Wednesday/ /Wednesday Secondary hyperparathyroidism -End-stage renal disease on hemodialysis Wednesday//Wednesday -Nephrology Dr. Winters -Currently on Cinacalcet at 30 mg p.o. daily for secondary hyperparathyroidism. -Sevelamer carbonate 2400 mg p.o. 3 times daily for hyperphosphatemia ID: MRSA nares positive Septic Shock Decubitus ulcer poor dentition - blood cultures - zosyn - ID consult Mupirocin swabs twice daily HEME: Acute blood loss anemia Anemia of chronic kidney disease Supratherapeutic INR/warfarin toxicity -Receiving K Centra 2000 units in ED -Give 2 units PRBC, 2 units of FFP -Vitamin K 10 mg IV 1 -Monitor CBC, CMP, INR -Holding warfarin and aspirin. Last INR 1.5. Last hemoglobin 8.6 ENDO: Diabetes mellitus Gout Sliding scale insulin with Novulin R with Accu-Cheks before meals/at bedtime maintain euglycemia/medium regimen Continue allopurinol milligrams daily for gout FEN: Replace electrolytes as clinically indicated MSK Cervical myelopathy Moderate lumbar stenosis Previously evaluated by Dr. Fragoso/neurosurgery March/2017. Neurologically intact not requiring intervention at this time. High risk due to underlying cardiac issues. Physical therapy evaluate and treat PROPH: -Bilateral lower extremity SCDs. Hold warfarin/IV pantoprazole infusion, management per GI This patient remains critically ill with one or more organ systems which are or may become a threat to life. I have spent in excess of 66 minutes discontinuously in the care and management of this patient. This time is exclusive of procedures, and includes, but is not limited to, evaluation of the patient, review of the medical record, discussions with family, consultants, nursing staff, or respiratory therapy, and documentation in the medical record. Jason Hahn MD Jun 08, 2017 19:33
--- NOTE | 2017-06-08 19:34 | PD.PROCEDR ---
Procedure Note Procedure Endotracheal Intubation Diagnosis: End-stage acute severe aortic stenosis Indications: Acute respiratory failure Consent: Emergent Anesthesia: Versed 5 mg IV, rocuronium 100 mg IV Description of the Procedure: The patient was positioned in the sniffing position. Pre-oxygenation was performed using a [id number]. Anesthesia was induced via rapid sequence. A Gupta #2 was used for laryngoscopy and a Grade I view was obtained. A 8.0 cuffed endotracheal tube was inserted atraumatically through the vocal cords. Confirmation of correct endotracheal tube placement was made by equal and bilateral breath sounds and colorimetric CO2 detection. The endotracheal tube was secured at 23 cm at the teeth. There were no immediate complications noted. The patient remained hemodynamically stable throughout the procedure. A chest x-ray has been ordered. I personally performed the procedure. Jason Hahn MD Jun 08, 2017 19:34
[2017-06-08] MEDS: CHLORHEXIDINE 0.12% (ORAL KIT) 15 ML CUP MT SCH (20:00)
--- NOTE | 2017-06-08 20:14 | RADRPT ---
EXAM DATE/TIME: 06/08/2017 19:05 [facility] COMPARISON: CHEST SINGLE AP, June 08, 2017, 14:32. INDICATIONS : Post intubation. MEDICAL HISTORY : Hypertension. Renal failure. Dialysis. SURGICAL HISTORY : AV fistula. Pilonidial cyst. ENCOUNTER: Subsequent ACUITY: 1 day PAIN SCORE: Non-responsive. LOCATION: Bilateral chest FINDINGS: Frontal view of the chest demonstrates ET tube tip just above the north in the midline. There is co nsolidation in both lower lungs and meniscal interfaces laterally in both lower lungs with elevation of both hemidiaphragms. The configuration of the consolidation and effusion similar to prior. CONCLUSION: ET tube tip is within 5 mm of the north and needs to be withdrawn at least 2 cm. Dillan Leonard MD on June 08, 2017 at 20:11 Board Certified Radiologist. This report was verified electronically.
[2017-06-08 20:38] LABS: LACTIC ACID SEPSIS PROTOCOL 3.1 mmol/L (0.4-2.0)
[2017-06-08] MEDS: RESP: ALBUTEROL 2.5 MG/IPRATROPIUM 0.5 MG NEB (SCH) INH (20:54)
[2017-06-08] MEDS: MIDAZOLAM 100 MG/100 ML INJ 100 ML IV PRN (22:40)
[2017-06-08] MEDS: fentaNYL DRIP 250 ML IV PRN (22:40)
[2017-06-09] VITALS (18 sets, daily range): BP systolic 96–138; BP diastolic 50–65; PULSE 62–77; RESP 15; TEMP 97.6–98.5; O2SAT 95–100
--- NOTE | 2017-06-09 02:15 | PD.PROCEDR ---
Procedure Note Procedure DATE: 06/09/2017 CENTRAL LINE PLACEMENT: Left internal jugular vein. Ultrasound-guided INDICATION: Central venous access CONSENT Informed consent for procedure was not obtaining considered emergent due to hemodynamic instability and lack of peripheral IV access DESCRIPTION OF THE PROCEDURE The patient was placed in supine position. The skin was cleansed with Chloraprep. Additional barrier precautions included large sterile drape, sterile gloves, sterile gown, face mask, and hat. 1 % lidocaine was used for local anesthesia. Under direct ultrasound guidance and on initial attempt, the vein was accessed with an introducer needle. The guide wire was advanced and the tract was dilated. Using Seldinger technique a 7 Polish 20 cm antimicrobial coated triple-lumen catheter was advanced to a depth of 20 centimeters. The guide wire was removed. All ports had good return of dark venous blood and flushed easily with saline. The central line was secured with 2.0 silk. A sterile dressing with antibiotic disc was applied. ESTIMATED BLOOD LOSS: Minimal COMPLICATIONS: No apparent complications. STAT chest x-ray pending at time of dictation Edmund Kelley MD Jun 09, 2017 02:15
[2017-06-09] MEDS ORDERED: diphenhydrAMINE HCL 25 MG CAP PO PRN (02:30)
[2017-06-09] MEDS ORDERED: GELATIN 12 MM/7 MM FOAM TOP PRN (02:30)
[2017-06-09] MEDS ORDERED: SODIUM CHLOR 0.9% 1000 ML INJ 1,000 ML OTHER PRN ×2 (02:30)
[2017-06-09] MEDS ORDERED: HEPARIN SODIUM - IV 10,000 UNITS/10 ML VIAL PRN (02:30)
[2017-06-09] MEDS ORDERED: ACETAMINOPHEN 325 MG TAB PO PRN (02:30)
[2017-06-09] MEDS ORDERED: GENTAMICIN SULFATE 20 MG/2 ML VIAL OTHER PRN (02:30)
[2017-06-09] MEDS ORDERED: NITROGLYCERIN 0.4 MG SL 25 TABS/BTL SL PRN (02:30)
[2017-06-09] MEDS ORDERED: cloNIDine HCL 0.1 MG TAB PO PRN (02:30)
[2017-06-09] MEDS ORDERED: ONDANSETRON HCL 4 MG/2 ML VIAL IV PUSH PRN (02:30)
[2017-06-09] MEDS ORDERED: SODIUM CHLORIDE 0.9% FLUSH 10 ML FLUSH IV FLUSH PRN ×2 (02:30)
[2017-06-09] MEDS ORDERED: HEPARIN SODIUM - IV 10,000 UNITS/10 ML VIAL IV FLUSH PRN (02:30)
[2017-06-09] MEDS ORDERED: MANNITOL 12.5 GM/50 ML VIAL IV PRN (02:30)
[2017-06-09] MEDS ORDERED: EPOETIN ALFA 10,000 UNITS/ML VIAL IV PUSH PRN (02:30)
[2017-06-09] MEDS ORDERED: SODIUM CHLOR 0.9% 1000 ML INJ 1,000 ML IV PRN (02:30)
--- NOTE | 2017-06-09 02:52 | RADRPT ---
EXAM DATE/TIME: 06/09/2017 02:30 [facility] COMPARISON: CHEST SINGLE AP, June 08, 2017, 19:05. INDICATIONS : Post central line placement. MEDICAL HISTORY : Hypertension. Renal failure. Dialysis SURGICAL HISTORY : AV fistula. Pilonidial cyst ENCOUNTER: Subsequent ACUITY: 1 day PAIN SCORE: Non-responsive. LOCATION: Bilateral chest FINDINGS: Portable AP view of the chest demonstrates mildly enlarged cardiac silhouette with severe calcificati on of the aorta. Endotracheal tube remains present. Nasogastric tube courses beyond the GE junction. Left IJ central line distal tip is in the SVC. No pneumothorax is identified. There are stable bilate ral mid and lower lung zone pleural parenchymal opacities. CONCLUSION: 1. Left IJ central line distal tip in the SVC. No pneumothorax is visualized. 2. Stable bilateral pleural effusions with associated volume loss and/or airspace consolidation. Landon Marrero MD on June 09, 2017 at 2:50 Board Certified Radiologist. This report was verified electronically.
[2017-06-09] MEDS: RESP: ALBUTEROL 2.5 MG/IPRATROPIUM 0.5 MG NEB (SCH) INH ×4 (03:26→20:51)
[2017-06-09] MEDS: PIPERACIL-TAZO 2.25 GM PREMIX 50 ML IV SCH ×2 (03:34→15:25)
[2017-06-09] MEDS: CHLORHEXIDINE GLUCONATE 2 % 1 PACK (2 CLOTHS) TOP SCH (04:00)
[2017-06-09 05:26] LABS: AUTOMATED NEUTROPHIL # 8.1 TH/MM3 (1.8-7.7); BASOPHIL % 0.2 % (0.0-2.0); EOSINOPHIL % 0.4 % (0.0-4.0); HEMATOCRIT 26.5 % (39.0-51.0); LYMPH % 6.4 % (9.0-44.0); LYMPHOCYTE # 0.6 TH/MM3 (1.0-4.8); MEAN CORPUSCULAR HEMOGLOBIN 33.1 PG (27.0-34.0); MEAN CORPUSCULAR HGB CONC 33.8 % (32.0-36.0); MEAN PLATELET VOLUME 9.5 FL (7.0-11.0); PLATELET COUNT 197 TH/MM3 (150-450); RED CELL DISTRIBUTION WIDTH 20.9 % (11.6-17.2); WHITE BLOOD COUNT 9.8 TH/MM3 (4.0-11.0)
[2017-06-09] MEDS: INSULIN NovoLIN REGULAR SUPPLEMENTAL SCALE SQ SCH ×4 (06:00→18:00)
[2017-06-09 06:06] LABS: ALBUMIN 3.5 GM/DL (3.4-5.0); ALKALINE PHOSPHATASE 75 U/L (45-117); ALT (GPT) 28 U/L (12-78); AST (GOT) 30 U/L (15-37); BICARBONATE 29.4 MEQ/L (21.0-32.0); BLOOD UREA NITROGEN 47 MG/DL (7-18); CALCIUM 10.2 MG/DL (8.5-10.1); CHLORIDE 103 MEQ/L (98-107); CREATININE 4.25 MG/DL (0.60-1.30); GLOMERULAR FILTRATION RATE 14 ML/MIN (>89); GLUCOSE,RANDOM 88 MG/DL (74-106); MAGNESIUM 2.4 MG/DL (1.5-2.5); PHOSPHORUS 2.8 MG/DL (2.5-4.9); SODIUM (NA) 143 MEQ/L (136-145); TOTAL BILIRUBIN ADULT 1.5 MG/DL (0.2-1.0); TOTAL PROTEIN 6.3 GM/DL (6.4-8.2)
[2017-06-09] MEDS: CHLORHEXIDINE 0.12% (ORAL KIT) 15 ML CUP MT SCH ×5 (08:00→21:14)
[2017-06-09] MEDS: COLLAGENASE OINT 30 GM TUBE TOPICAL SCH (09:00)
[2017-06-09] MEDS: ALLOPURINOL 100 MG TAB PO SCH (09:31)
[2017-06-09] MEDS: SEVELAMER CARBONATE 800 MG TAB PO SCH ×3 (09:31→17:44)
[2017-06-09] MEDS: AMIODARONE 200 MG TAB PO SCH ×3 (09:31→17:44)
[2017-06-09] MEDS: MUPIROCIN 2% OINT 1 APPLIC/GM SYR EACH NARE SCH ×2 (09:31→21:13)
[2017-06-09] MEDS: LIDOCAINE 4% CREAM 5 GM TUBE TOPICAL SCH (09:32)
[2017-06-09] MEDS: SODIUM CHLORIDE 0.9% FLUSH 10 ML FLUSH IV FLUSH SCH (09:32)
--- NOTE | 2017-06-09 10:32 | HHI.CCPN ---
Subjective Remarks/Hospital Course Patient is a 76-year-old male with past medical history significant for severe aortic stenosis (peak 94, mean 55, NATA 0.5), recurrent congestive heart failure, coronary artery disease with LAD lesion, hypertension, on dialysis for end-stage renal disease, atrial fibrillation on warfarin, who was sent to the emergency department from [facility] for INR>13 and hemoglobin low. He denied any chest pain or dizziness, further ER workup revealed he had a hemoglobin of 6.5 INR was 13.6. BNP was elevated at 1209. Chest x-ray showed severe pulmonary vascular congestion and bilateral effusions. Patient has severe aortic stenosis, and had been seen by Dr. Ortiz and cardiothoracic surgeon Dr. Nielson before, plan is for PCI and TAVR once stable and prior to that patient needed teeth extracted, and was to follow up as OP with Dr. Santiago. Given GI bleed and anemia patient is receiving 2 units of PRBC , 2 units of FFP already received vitamin K 10 mg IV. I have also ordered Kcentra as he is hemodynamically unstable, and due to end-stage renal disease will not be able to handle multiple units of FFP. Nephrology Dr. Winters had been contacted, due to pulmonary edema patient will get stat hemodialysis and received blood products at the same time I evaluated the patient in the ICU. Patient is just starting to receive Kcentra. Hemodialysis is about the start blood pressure is low systolic blood pressure 65-70. I will start Yosef-Synephrine to maintain map about 65 and to facilitate hemodialysis, transfuse blood products. Patient's prognosis is guarded. He is mildly encephalopathic at this time Subjective 3/3: Currently resting in bed. Vasopressors have been discontinued. GI is cleared for clear liquid diet. Remains mildly encephalopathic. 3/4: Intermittent bouts of confusion. Follows commands, no vasopressors support needed. Diet has been advanced. Currently continues on Protonix infusion per GI management. 06/08: RECONSULT NOTE: We consulted for acute respiratory failure. Patient well- known to the intensive care medicine service with 3 of severe aortic stenosis with a mean gradient of 55 and a peak velocity greater than 4.1 m/s, end stage renal disease, decubitus ulcer, poor dentition, who is very recently been admitted on previous occasions for cardiogenic shock secondary to severe aortic stenosis and rapid ventricular response of his atrial fibrillation. At that time the patient was recommended to undergo complete full mouth dental extraction followed by balloon aortic valvuloplasty, bare-metal stent to the proximal LAD, in early preparation for workup for transcatheter aortic valve replacement. However, the patient never made it to any of these interventions because he began with GI bleeding and an INR of 13 and was admitted on 06/04 4 acute GI bleeding. He was stabilized at that point and eventually transferred to the floor. Today he presents with new onset fever for which infectious disease service was consulted and started empiric Zosyn, with a presumable source of his decubitus ulcer. Despite this, the patient continued to decline and became acutely altered as well as acutely hypoxemic requiring nonrebreather and then bag mask assistance. He was rapid response from the floor and emergently transferred to the ICU where I evaluated the patient. The patient was in acute respiratory failure and required emergent intubation, see separate procedure note for details. No information is available from the patient due to his acute condition. ROS is unobtainable. 06/09: no meaningful improvements. remains encephalopathic, on vasopressors, in shock. unlikely to survive. Objective Vital Signs Date Time Temp Pulse Resp B/P (MAP) Pulse Ox O2 Delivery O2 Flow Rate FiO2 06/09/17 08:04 100 40 06/09/17 08:00 97.9 75 15 118/57 (77) 06/08/17 16:30 Venturi Mask 6.00 Intake and Output 06/09/17 06/09/17 06/10/17 08:00 16:00 00:00 Intake Total 60 ml Output Total 0 ml Balance 60 ml Result Diagram: 06/09/17 0502 06/09/17 0502 Other Results Laboratory Tests Test 06/08/17 18:30 Blood Gas Puncture Site RT BRACHIAL Blood Gas Patient Temperature 98.6 Blood Gas HCO3 28 mmol/L (22-26) Blood Gas Base Excess 3.2 mmol/L (-2-2) Blood Gas Oxygen Saturation 97 % (90-100) Arterial Blood pH 7.36 (7.380-7.420) Arterial Blood Partial Pressure CO2 52 mmHg (38-42) Arterial Blood Partial Pressure O2 332 mmHg (61-120) Arterial Blood Oxygen Content 11.7 Vol % (12.0-20.0) Arterial Blood Carboxyhemoglobin 2.6 % (0-4) Arterial Blood Methemoglobin 0.8 % (0-2) Blood Gas Hemoglobin 8.0 G/DL (12.0-16.0) Oxygen Delivery Device VENTILATOR Blood Gas Ventilator Setting PRVC/AC Blood Gas Inspired Oxygen 100 % Imaging Last Impressions Chest X-Ray 06/06/17 06 Signed Impressions: Service Date/Time: Tuesday, June 06, 2017 02:34 - CONCLUSION: Stable left lung consolidation and right pleural effusion. Dillan Leonard MD Last Impressions Chest X-Ray 06/05/17599 Signed Impressions: Service Date/Time: Monday, June 05, 2017 04:08 - CONCLUSION: Stable right pleural effusion and left lower lung consolidation. Dillan Leonard MD Procedures Current Medications Medications (Trade) Dose Ordered Sig/Jamal Route Start Time Stop Time Status Last Admin (NS Flush) 2 ml UNSCH PRN IVF 06/04/17 17:45 06/04/17 18:06 Miscellaneous Information 1 Q361D XX 06/04/17 20:30 06/04/17 22:15 (Chlorhexidine 2% Cloth) 3 pack Taper DAILY@04 TOP 06/05/17 04:00 06/01/18 03:59 06/05/17 03:04 (Chlorhexidine 2% Cloth) 3 pack UNSCH PRN TOP 06/04/17 20:30 (Zyloprim) 100 mg DAILY PO 06/05/17 09:00 06/07/17 10:42 (Cordarone) 400 mg TIDPC PO 06/05/17 09:30 06/07/17 17:38 (Sensipar) 30 mg DAILY PO 06/05/17 09:00 06/07/17 10:41 (Lanoxin) 0.125 mg Q48H PO 06/04/17 23:00 Future Hold 06/06/17 23:43 (Renvela) 2,400 mg TID PO 06/05/17 09:00 06/07/17 17:39 Sodium Chloride 1,000 ml @ 0 mls/hr Q0M PRN OTHER 06/04/17 22:37 (Heparin Inj) 8,000 units UNSCH PRN IV FLUSH 06/04/17 22:45 Sodium Chloride 1,000 ml @ 200 mls/hr Q5H PRN IV 06/04/17 22:37 Sodium Chloride 1,000 ml @ 0 mls/hr Q0M PRN OTHER 06/04/17 22:37 (Mannitol Inj) 12.5 gm UNSCH PRN IV 06/04/17 22:45 Albumin Human 100 ml @ 60 mls/hr UNSCH PRN IV 06/04/17 22:45 06/08/17 13:38 (NS Flush) 5 ml UNSCH PRN IV FLUSH 06/04/17 22:45 (Heparin Inj) UNSCH PRN .XX 06/04/17 22:45 (Gentamicin Inj) 20 mg UNSCH PRN OTHER 06/04/17 22:45 (Zofran Inj) 4 mg UNSCH PRN IV PUSH 06/04/17 22:45 (Benadryl) 25 mg UNSCH PRN PO 06/04/17 22:45 (Nitrostat Sl) 0.4 mg UNSCH PRN SL 06/04/17 22:45 (Catapres) 0.1 mg UNSCH PRN PO 06/04/17 22:45 (Epogen Inj) 10,000 units UNSCH PRN IV PUSH 06/04/17 22:45 06/08/17 13:38 (Gelfoam 12 Mm/7 Mm Top) 1 foam UNSCH PRN TOP 06/04/17 22:45 06/08/17 13:38 Phenylephrine HCl 160 mg/Dextrose 500 ml @ 7.5 mls/hr TITRATE PRN IV 06/04/17 22:30 06/04/17 23:28 (Brethine Inj) 1 mg UNSCH PRN SQ 06/04/17 22:30 (Bactroban Nasal 2% Oint) 1 applic Taper BID EACH NARE 06/05/17 21:00 06/01/18 20:59 06/07/17 22:08 (Duoneb Neb) 1 ampule Q6HR NEB NEB 06/05/17 22:00 06/08/17 08:20 (Tylenol 650 Mg/ 20 ml Liq) 650 mg Q6H PRN PO 06/05/17 17:00 (D50w (Vial) Inj) 50 ml UNSCH PRN IV PUSH 06/05/17 17:00 (Glucagon Inj) 1 mg UNSCH PRN OTHER 06/05/17 17:00 (NovoLIN R SUPPLEMENTAL SCALE) 1 ACHS SLIDING SCALE SQ 06/05/17 17:00 (Protonix Inj) 40 mg Q24H IV PUSH 06/07/17 14:00 06/07/17 13:53 (Hycet 325-7.5 Mg Liq) 15 ml Q4H PRN PO 06/07/17 15:00 06/07/17 22:08 (L-M-X 4 Cream) 1 applic DAILY TOPICAL 06/07/17 18:00 (Santyl Oint) 1 applic DAILY TOPICAL 06/07/17 18:00 (Coumadin) 1 mg DAILY@16 PO 06/08/17 16:00 Objective Remarks GENERAL: 76-year-old male lying in bed, unresponsive, obtunded, acute respiratory failure HEAD: Atraumatic. Normocephalic. EYES: Pupils equal and round. No scleral icterus. No injection or drainage. ENT: No nasal bleeding or discharge. Mucous membranes dry pale. Extremely poor dentition with one large tooth and lower jaw NECK: Trachea midline. Positive JVD above the level of the mandible CARDIOVASCULAR: Normal rate, irregularly irregular rhythm. There is A. fib by telemetry. Positive systolic murmur right upper sternal border. RESPIRATORY: Labored, using accessory muscles, bag mask assistance. Equal chest rise. GASTROINTESTINAL: Abdomen soft, non-tender, nondistended. no guarding MUSCULOSKELETAL: Left forearm AV fistula. Positive thrill and bruit. NEUROLOGICAL: Obtunded, encephalopathic, very weakly withdraws to pain, does not follow commands. A/P Assessment and Plan Assessment: 76-year-old male with end-stage severe aortic stenosis complicated by poor dentition, sacral decubitus ulcer, coronary artery disease with proximal LAD lesion which is currently unstented, acute GI bleeding. Now he has septic shock and acute respiratory failure. Critically ill. very poor prognosis. now with respiratory failure and septic shock: unlikely to be able to survive long enough to get decubitus and teeth intervened upon, then GI bleeding secured, then BMS to LAD, followed by balloon aortic valvuloplasty, followed by complete TAVR work-up. Much more likely to as an inpatient, or recent future as an outpatient. I have consulted palliative care to assist with goals of care as he is end-stage and unlikely to survive. Remains very critically ill and currently our goals are aggressive. NEURO/PSYCH: Acute metabolic encephalopathy Chronic pain syndrome with chronic narcotic use Poor dentition Acetaminophen 650 mg p.o. every 6 hours as needed fever Monitor neuro status closely Outpatient dental extraction needs to be followed up on, unfortunately has not been able to be completed. frequent neuro checks fentanyl prn for sedation RESP: Acute hypoxic respiratory failure Acute pulmonary Edema - vent bundle - hob elevated - nebs - likely combination of septic shock with multi-organ failure, pulmonary edema, volume overload. - wean fio2 for goal spo2 >90% - stat ABG - intubated emergently 06/08 - CXR post intubation CV: Severe aortic stenosis Congestive heart failure/diastolic + valvulopathy Atrial fibrillation Coronary artery disease/80% LAD lesion to 03/21 cardiac catheterization PFO with recent evidence of L-->R shunting. Septic Shock -Hold diltiazem PO 60 mg every 6, -Hold warfarin in light of acute blood loss anemia. Hold aspirin for the same reasons -hold digoxin -Cardiology Dr. Ortiz and Dr. Garcia. Evaluated for PCI/TAVR March/2017. Need his teeth extracted prior to any surgical intervention: unlikely to survive long enough to complete TAVR work-up. too many acute comorbidities. -Dr. Santiago was consulted last admission and recommended OP appointment which is reasonable, now too unstable to complete. - phenylephrine for goal map > 65mmHg. GI: History of C. difficile colitis Acute protein calorie malnutrition- severe -OG tube. - renal tube feeds - dietary consult - very cachectic appearing. likely end-stage cardiac wasting. RENAL/: Chronic kidney disease stage V/end-stage renal disease on hemodialysis Wednesday/ /Wednesday Secondary hyperparathyroidism -End-stage renal disease on hemodialysis Wednesday//Wednesday -Nephrology Dr. Winters -Currently on Cinacalcet at 30 mg p.o. daily for secondary hyperparathyroidism. -Sevelamer carbonate 2400 mg p.o. 3 times daily for hyperphosphatemia ID: MRSA nares positive Septic Shock Decubitus ulcer poor dentition - blood cultures - zosyn - ID consult Mupirocin swabs twice daily HEME: Acute blood loss anemia Anemia of chronic kidney disease Supratherapeutic INR/warfarin toxicity -Receiving K Centra 2000 units in ED -Give 2 units PRBC, 2 units of FFP -Vitamin K 10 mg IV 1 -Monitor CBC, CMP, INR -Holding warfarin and aspirin. Last INR 1.5. Last hemoglobin 8.6 ENDO: Diabetes mellitus Gout Sliding scale insulin with Novulin R with Accu-Cheks before meals/at bedtime maintain euglycemia/medium regimen Continue allopurinol milligrams daily for gout FEN: Replace electrolytes as clinically indicated MSK Cervical myelopathy Moderate lumbar stenosis Previously evaluated by Dr. Fragoso/neurosurgery March/2017. Neurologically intact not requiring intervention at this time. High risk due to underlying cardiac issues. Physical therapy evaluate and treat PROPH: -Bilateral lower extremity SCDs. Hold warfarin/IV pantoprazole infusion, management per GI This patient remains critically ill with one or more organ systems which are or may become a threat to life. I have spent in excess of 31 minutes discontinuously in the care and management of this patient. This time is exclusive of procedures, and includes, but is not limited to, evaluation of the patient, review of the medical record, discussions with family, consultants, nursing staff, or respiratory therapy, and documentation in the medical record. Jason Hahn MD Jun 09, 2017 10:32
[2017-06-09] MEDS: CINACALCET HYDROCHLORIDE 30 MG TAB PO SCH (10:52)
--- NOTE | 2017-06-09 11:07 | HHI.NPPN ---
Subjective General Problems: Anemia Renal Failure: End Stage Renal Disease History of Present Illness Patient is a 76-year-old male with past medical history significant for severe aortic stenosis (peak 94, mean 55, NATA 0.5), recurrent congestive heart failure, coronary artery disease with LAD lesion, hypertension, on dialysis for end-stage renal disease, atrial fibrillation on warfarin, who was sent to the emergency department from [facility] for INR>13 and hemoglobin low. He denied any chest pain or dizziness, further ER workup revealed he had a hemoglobin of 6.5 INR was 13.6. BNP was elevated at 1209. Chest x-ray showed severe pulmonary vascular congestion and bilateral effusions. Patient has severe aortic stenosis, and had been seen by Dr. Ortiz and cardiothoracic surgeon Dr. Nielson before, plan is for PCI and TAVR once stable and prior to that patient needed teeth extracted, and was to follow up as OP with Dr. Santiago. I was notified of patient's clinical situation by ER Nurse practitioner. Because of pulmonary edema and need for blood products emergency dialysis was arranged and carried out last night. He has received 2 units of PRBC and 2 units of FFP. Also has received Vitamin K and Kcintra. This morning he is extremely lethargic and unable to provide any history Additional Remarks Patient transferred to ICU on ventilator (Prachi Huitron) Review of Systems General Constitutional: Fatigue General Remarks Intubated and sedated (Prachi Huitron) Objective Data Data Vital Signs Date Time Temp Pulse Resp B/P (MAP) Pulse Ox O2 Delivery O2 Flow Rate FiO2 06/09/17 08:04 100 40 06/09/17 08:00 97.9 75 15 118/57 (77) 100 06/09/17 06:00 73 06/09/17 04:00 98.5 72 15 138/65 (89) 100 06/09/17 04:00 40 06/09/17 04:00 70 06/09/17 03:26 100 40 06/09/17 02:00 66 06/09/17 00:00 98.3 70 15 132/61 (84) 100 06/09/17 00:00 40 06/09/17 00:00 70 06/08/17 23:32 100 40 06/08/17 22:00 74 06/08/17 20:30 40 06/08/17 20:00 74 06/08/17 20:00 100.0 74 20 121/56 (77) 100 06/08/17 19:32 100 45 06/08/17 19:00 45 06/08/17 18:30 75 57/35 06/08/17 16:30 93 Venturi Mask 6.00 50 06/08/17 16:30 98.7 75 19 107/55 (72) 95 06/08/17 14:33 94 Venturi Mask 6.00 50 (Prachi Huitron) -: 06/09/17 0502 06/09/17 0502 Microbiology 06/08/17 Aerobic Blood Culture, Received Pending 06/08/17 Anaerobic Blood Culture, Received Pending 06/08/17 Aerobic Blood Culture, Received Pending 06/08/17 Anaerobic Blood Culture, Received Pending 06/08/17 Gram Stain - Final, Resulted 06/08/17 Wound Culture - Preliminary, Resulted Imaging Last Impressions Chest X-Ray 06/09/17 0216 Signed Impressions: Service Date/Time: Friday, June 09, 2017 02:30 - CONCLUSION: 1. Left IJ central line distal tip in the SVC. No pneumothorax is visualized. 2. Stable bilateral pleural effusions with associated volume loss and/or airspace consolidation. Landon Marrero MD (Prachi Huitron) Physical Exam General Appearance: Malnourished (Prachi Huitron) Eyes Eye Exam: Pupils Equal (Prachi Huitron) Neck Neck Exam: Neck Supple (Prachi Huitron) Pulmonary Resp Exam: No Distress (Prachi Huitron) Cardiology CV Exam: Irregular, Murmur (Prachi Huitron) Gastrointestinal/Abdomen GI Exam: Soft, Non-Tender, Bowel Sounds Present (Prachi Huitron) Extremeties Extremities Exam: No Edema (Prachi Huitron) Assessment/Plan Problem List: (1) ESRD (end stage renal disease) on dialysis ICD Codes: N18.6 - End stage renal disease; Z99.2 - Dependence on renal dialysis Plan: Dialyzes TTS Plan continue Cinacalcet at 30 mg p.o. daily for secondary hyperparathyroidism. Continue Sevelamer carbonate 2400 mg p.o. 3 times daily for hyperphosphatemia Epogen with dialysis Dialysis yesterday and 2.5 liters removed Transferred to ICU for distress and is now intubated on becka synephrine for blood pressure support Prognosis is poor. (2) Coagulopathy ICD Codes: D68.9 - Coagulation defect, unspecified Plan: Given FFP, Vitamin K, Kcentra. Improved. (3) Anemia ICD Codes: D64.9 - Anemia Status: Acute Plan: blood loss anemia, in the context of GI bleeding and coagulopathy. Hemoglobin has improved with blood transfusion. (4) Severe aortic valve stenosis ICD Codes: I35.0 - Nonrheumatic aortic (valve) stenosis Plan: need for surgical therapy (TAVR). Prognosis is very poor. (5) Atrial fibrillation ICD Codes: I48.91 - Unspecified atrial fibrillation Plan: He is on amiodarone. Was on Coumadin. (6) Pulmonary edema ICD Codes: J81.1 - Chronic pulmonary edema Status: Acute Plan: On O2 at 2 liters (Prachi Huitron) Problem List: (1) ESRD (end stage renal disease) on dialysis ICD Codes: N18.6 - End stage renal disease; Z99.2 - Dependence on renal dialysis Plan: Dialyzes TTS Plan continue Cinacalcet at 30 mg p.o. daily for secondary hyperparathyroidism. Continue Sevelamer carbonate 2400 mg p.o. 3 times daily for hyperphosphatemia Epogen with dialysis Dialysis yesterday and 2.5 liters removed Transferred to ICU for distress and is now intubated on becka synephrine for blood pressure support Prognosis is poor. Patient seen and examined, agree with above. Patient is now No Code. (2) Coagulopathy ICD Codes: D68.9 - Coagulation defect, unspecified Plan: Given FFP, Vitamin K, Kcentra. Improved. (3) Anemia ICD Codes: D64.9 - Anemia Status: Acute Plan: blood loss anemia, in the context of GI bleeding and coagulopathy. Hemoglobin has improved with blood transfusion. (4) Severe aortic valve stenosis ICD Codes: I35.0 - Nonrheumatic aortic (valve) stenosis Plan: need for surgical therapy (TAVR). Prognosis is very poor. (5) Atrial fibrillation ICD Codes: I48.91 - Unspecified atrial fibrillation Plan: He is on amiodarone. Was on Coumadin. (6) Pulmonary edema ICD Codes: J81.1 - Chronic pulmonary edema Status: Acute Plan: On O2 at 2 liters (Quiana Mayers MD) Problem Qualifiers (1) Anemia: Qualified Codes: D64.9 - Anemia, unspecified (2) Pulmonary edema: Qualified Codes: J81.0 - Acute pulmonary edema Prachi Huitron Jun 09, 2017 11:07 Quiana Mayers MD Jun 09, 2017 21:27
--- NOTE | 2017-06-09 12:10 | PD.CONS ---
Consult Service Palliative Care . Consult Requested By Dr. Hahn . Primary Care Physician Unknown Reason for Consultation a. To assist with evaluation and management of symptoms including: dyspnea, pain. b. To assist medical decision maker(s) with: better understanding of current medical conditions; weighing benefits/burdens of medical treatment options; making medical treatment decisions. . HPI History of Present Illness Mr. Young is a 76 year old male with past medical history of CHF, CAD, Atrial fibrillation an Warfarin, hypertension, end stage renal disease on hemodialysis , severe aortic stenosis, anemia and history of C. Diff. Patient has severe aortic stenosis, seen by Dr. Ortiz and cardiothoracic surgeon Dr. Garcia. Was in planning for PCI and TAVR once stable. Prior to that patient needed teeth extracted, and was to follow up as outpatient with Dr. Santiago. Patient presented to [facility] ER on 06/04/17 from [facility] for abnormal labs (INR > 13 and low hemoglobin). Initial evaluation revealed: * VS: Temp 98, pulse 69, respiration 18, BP 99/50, oxygen saturation 99% on nasal cannula 3 L * WBC 6.0, hemoglobin 6.5, hematocrit 20.2, platelets 217, neutrophils 80.6% * PT 135.2, INR 13.6, PTT 47.1 * BUN 41, creatinine 3.36, glucose 92 * Total protein 5.8, albumin 2.8 * Alkaline phosphatase 97, AST 29, ALT 37, Total bilirubin 0.5 * Chest x-ray revealed cardiomegaly, moderate to severe pulmonary edema, bilateral pleural effusions. * Hemoccult-positive Patient was admitted for anemia, GI bleed, pulmonary edema. Nephrology, Dr. Winters was consulted. Given GI bleed and anemia patient was given 2 units of PRBC, 2 units of FFP. Vitamin K 10 mg IV was given. Kcentra was ordered given hemodynamically unstable. Stat hemodialysis was ordered and received blood products at the same time. GI was consulted and later signed off as patient had no active bleeding. INR now 1.4. On 06/08/17, patient developed acute hypoxia requiring NRB. He was emergently transferred back to ICU and was intubated and placed on mech ventilation. He remains critically ill in ICU on vent, requiring vasopressor support in shock and not expected to survive. Palliative care is consulted to assist with further clarification of treatment goals. Function/Cognitive Trajectory Patient has had ongoing trajectory of decline dating back to February 2017. He has had repeat hospitalizations and rehab stays secondary to ongoing cardiac, renal, hypotensive issues. Prior to admission patient was in rehab at [facility] dependent for all of his care, decreased appetite. Patient has had significant weight loss over the past few months. Patient was considering discontinuation of hemodialysis in the weeks prior to presentation as he was "getting tired." . Review of Systems ROS Limitations: Intubated (Sedated on mechanical vent) Constitutional: COMPLAINS OF: Fatigue, Weight loss, Change in appetite ( Decreased) Respiratory: COMPLAINS OF: Cough, Shortness of breath Cardiovascular: COMPLAINS OF: Dyspnea on Exertion, Lower Extremity Edema, Orthopnea Gastrointestinal: COMPLAINS OF: Bloody stools Musculoskeletal: COMPLAINS OF: Neck pain (Since fall in February 2017) Integumentary: COMPLAINS OF: Non-healing sores (Sacral decubitus to bone) Hematologic/Lymphatics: COMPLAINS OF: Bruising Neurologic: COMPLAINS OF: Poor Balance (Recent falls) Psychiatric: COMPLAINS OF: Anxiety Other ROS: Poor dentition Past Family Social History Coded Allergies: No Known Allergies (Verified Allergy, Unknown, 06/04/17) Past Medical History Hypertension Type 2 diabetes Hypelipidemia Patent foramen ovale Severe Aortic Stenosis awaiting on surgery Atrial fibrillation End-stage renal disease on hemodialysis. Tuesdays//Saturdays Frequent syncopal episodes secondary to severe aortic stenosis Anemia of chronic disease Poor dentition C. difficile . Past Surgical History AV Fistula Pilonidal Cyst . Reported Medications Reported Meds & Active Scripts Active Amiodarone (Amiodarone HCl) 200 Mg Tab 400 Mg PO TIDPC [place] (Hydrocodone-Acetaminophen) 5 Mg-325 Mg Tab 1 Tab PO Q12HR PRN Tgt Aspirin (Aspirin) 81 Mg Chw 81 Mg CHEW DAILY Cardizem (Diltiazem HCl) 60 Mg Tab 60 Mg PO Q6H Nitrostat SL (Nitroglycerin) 0.4 Mg Subl 0.4 Mg SL UNSCH PRN Digoxin 0.125 Mg Tab 0.125 Mg PO Q48H Coumadin (Warfarin) 1 Mg Tab 1 Mg PO DAILY@1600 Reported Renvela (Sevelamer Carbonate) 800 Mg Tab 2,400 Mg PO TID Allopurinol 100 Mg Tab 100 Mg PO DAILY Sensipar (Cinacalcet) 30 Mg Tab 30 Mg PO DAILY . Current Medications Medications (Trade) Dose Ordered Sig/Jamal Route Start Time Stop Time Status Last Admin Miscellaneous Information 1 Q361D XX 06/04/17 20:30 06/04/17 22:15 (Chlorhexidine 2% Cloth) 3 pack Taper DAILY@04 TOP 06/05/17 04:00 06/01/18 03:59 06/09/17 04:00 (Chlorhexidine 2% Cloth) 3 pack UNSCH PRN TOP 06/04/17 20:30 (Zyloprim) 100 mg DAILY PO 06/05/17 09:00 06/09/17 09:31 (Cordarone) 400 mg TIDPC PO 06/05/17 09:30 06/09/17 09:31 (Sensipar) 30 mg DAILY PO 06/05/17 09:00 06/09/17 10:52 (Lanoxin) 0.125 mg Q48H PO 06/04/17 23:00 Future Hold 06/06/17 23:43 (Renvela) 2,400 mg TID PO 06/05/17 09:00 06/09/17 09:31 Albumin Human 100 ml @ 60 mls/hr UNSCH PRN IV 06/04/17 22:45 06/08/17 13:38 Phenylephrine HCl 160 mg/Dextrose 500 ml @ 7.5 mls/hr TITRATE PRN IV 06/04/17 22:30 06/08/17 18:30 (Brethine Inj) 1 mg UNSCH PRN SQ 06/04/17 22:30 (Bactroban Nasal 2% Oint) 1 applic Taper BID EACH NARE 06/05/17 21:00 06/01/18 20:59 06/09/17 09:31 (Tylenol 650 Mg/ 20 ml Liq) 650 mg Q6H PRN PO 06/05/17 17:00 (D50w (Vial) Inj) 50 ml UNSCH PRN IV PUSH 06/05/17 17:00 06/09/17 00:07 (Glucagon Inj) 1 mg UNSCH PRN OTHER 06/05/17 17:00 (Protonix Inj) 40 mg Q24H IV PUSH 06/07/17 14:00 06/08/17 15:36 (L-M-X 4 Cream) 1 applic DAILY TOPICAL 06/07/17 18:00 06/09/17 09:32 (Santyl Oint) 1 applic DAILY TOPICAL 06/07/17 18:00 06/09/17 09:00 (Coumadin) 1 mg DAILY@16 PO 06/08/17 16:00 Piperacillin Sod/ Tazobactam Sod 50 ml @ 100 mls/hr Q12H IV 06/08/17 16:00 06/09/17 03:34 (Peridex 0.12% Liq) 15 ml BID@08,20 MT 06/08/17 20:00 06/09/17 09:30 (NovoLIN R SUPPLEMENTAL SCALE) 1 Q6HR SQ 06/09/17 00:00 (Duoneb Neb) 1 ampule Q6HR NEB INH 06/08/17 22:00 06/09/17 08:03 (Duoneb Neb) 1 ampule Q2HR NEB PRN INH 06/08/17 18:30 (Peridex 0.12% Liq) 15 ml BID@08,20 MT 06/09/17 08:00 Fentanyl Citrate 250 ml @ 5 mls/hr TITRATE PRN IV 06/08/17 22:15 06/08/17 22:40 Midazolam HCl 100 ml @ 2 mls/hr TITRATE PRN IV 06/08/17 22:15 06/08/17 22:40 (NS Flush) DAILY IV FLUSH 06/09/17 09:00 06/09/17 09:32 (NS Flush) UNSCH PRN IV FLUSH 06/09/17 02:30 Sodium Chloride 1,000 ml @ 0 mls/hr Q0M PRN OTHER 06/09/17 02:30 (Heparin Inj) 8,000 units UNSCH PRN IV FLUSH 06/09/17 02:30 Sodium Chloride 1,000 ml @ 200 mls/hr Q5H PRN IV 06/09/17 02:30 Sodium Chloride 1,000 ml @ 0 mls/hr Q0M PRN OTHER 06/09/17 02:30 (Mannitol Inj) 12.5 gm UNSCH PRN IV 06/09/17 02:30 (NS Flush) 5 ml UNSCH PRN IV FLUSH 06/09/17 02:30 (Heparin Inj) UNSCH PRN .XX 06/09/17 02:30 (Gentamicin Inj) 20 mg UNSCH PRN OTHER 06/09/17 02:30 (Zofran Inj) 4 mg UNSCH PRN IV PUSH 06/09/17 02:30 (Tylenol) 650 mg UNSCH PRN PO 06/09/17 02:30 (Benadryl) 25 mg UNSCH PRN PO 06/09/17 02:30 (Nitrostat Sl) 0.4 mg UNSCH PRN SL 06/09/17 02:30 (Catapres) 0.1 mg UNSCH PRN PO 06/09/17 02:30 (Epogen Inj) 10,000 units UNSCH PRN IV PUSH 06/09/17 02:30 (Gelfoam 12 Mm/7 Mm Top) 1 foam UNSCH PRN TOP 06/09/17 02:30 Family History Mother with Dm II and Father with Hypertension. Substance Use Tobacco: Alcohol: Prescription med abuse: Illicits: Psychosocial History Was living alone until February 2017 when he suffered a fall. In March 2017 his son, Terrell moved in with him as patient was requiring more assistance. Patient is originally from [place] moved to [place] 20 years ago. Has 3 adult sons. . Spiritual/Cultural Factors Jew ricardo. 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 . Health Care Surrogate(s): Patient is not capacitated to make his own healthcare decisions, will not regain capacity. Family indicates sonElier is designated healthcare surrogate. Paperwork requested, will bring at next visit. . Today's verbally stated goals: Patient is not capacitated. Family/friends goals: Family elects NO CODE. Desires continued aggressive care short of no code for now, anticipate possible transition to comfort measures in the coming days. Patient's son would like to discuss with the rest of the family prior to making additional decisions. . Ethical and Legal Issues Patient is not capacitated to make his own healthcare decisions, will not regain capacity. Family indicates Elier alonzo is designated healthcare surrogate. Paperwork requested, will bring at next visit. . Physical Exam Vital Signs Date Time Temp Pulse Resp B/P (MAP) Pulse Ox O2 Delivery O2 Flow Rate FiO2 06/09/17 08:04 100 40 06/09/17 08:00 97.9 75 15 118/57 (77) 100 06/09/17 06:00 73 06/09/17 04:00 98.5 72 15 138/65 (89) 100 06/09/17 04:00 40 06/09/17 04:00 70 06/09/17 03:26 100 40 06/09/17 02:00 66 06/09/17 00:00 98.3 70 15 132/61 (84) 100 06/09/17 00:00 40 06/09/17 00:00 70 06/08/17 23:32 100 40 06/08/17 22:00 74 06/08/17 20:30 40 06/08/17 20:00 74 06/08/17 20:00 100.0 74 20 121/56 (77) 100 06/08/17 19:32 100 45 06/08/17 19:00 45 06/08/17 18:30 75 57/35 06/08/17 16:30 93 Venturi Mask 6.00 50 06/08/17 16:30 98.7 75 19 107/55 (72) 95 06/08/17 14:33 94 Venturi Mask 6.00 50 Exam CONSTITUTIONAL/GENERAL: This is an elderly, cachectic, critically ill patient, sedated on mechanical ventilation. TUBES/LINES/DRAINS: ETT, OG, PIPs, bilateral soft wrist restraints, SCDs, Hernandez , AV fistula. SKIN: No jaundice, rashes, or lesions. Ecchymoses and skin tears on upper extremities. Sacral decubitus, not visualized during my visit today. Skin temperature appropriate. Not diaphoretic. HEAD: Bilateral temporal wasting. Atraumatic. Normocephalic. EYES: eyes closed. ENT: Unable to assess hearing. Nose without bleeding or purulent drainage. Poor dentition, difficult to visualize throat secondary to tubes. NECK: Trachea midline. CARDIOVASCULAR: Irregularly, irregular. Atrial fibrillation by telemetry. Systolic murmur noted. RESPIRATORY/CHEST: Scattered coarse breath sounds. GASTROINTESTINAL: Abdomen soft, nondistended. No guarding. Bowel sounds present. GENITOURINARY: Without palpable bladder distension. Hernandez catheter in place. MUSCULOSKELETAL: AV fistula positive bruit and thrill. No mottling or clubbing. LYMPHATICS: No palpable cervical or supraclavicular adenopathy. NEUROLOGICAL: Sedated. PSYCHIATRIC: Sedated. . Diagnostic Tests Laboratory Laboratory Tests Test 06/07/17 07:58 06/08/17 05:33 06/08/17 18:30 06/08/17 19:49 White Blood Count 4.5 TH/MM3 (4.0-11.0) 6.7 TH/MM3 (4.0-11.0) Red Blood Count 2.67 MIL/MM3 (4.50-5.90) 2.92 MIL/MM3 (4.50-5.90) Hemoglobin 8.7 GM/DL (13.0-17.0) 9.6 GM/DL (13.0-17.0) Hematocrit 26.3 % (39.0-51.0) 29.2 % (39.0-51.0) Mean Corpuscular Volume 98.5 FL (80.0-100.0) 100.1 FL (80.0-100.0) Mean Corpuscular Hemoglobin 32.4 PG (27.0-34.0) 33.0 PG (27.0-34.0) Mean Corpuscular Hemoglobin Concent 32.9 % (32.0-36.0) 33.0 % (32.0-36.0) Red Cell Distribution Width 21.9 % (11.6-17.2) 21.5 % (11.6-17.2) Platelet Count 162 TH/MM3 (150-450) 204 TH/MM3 (150-450) Mean Platelet Volume 9.6 FL (7.0-11.0) 10.1 FL (7.0-11.0) Blood Urea Nitrogen 50 MG/DL (7-18) 62 MG/DL (7-18) Creatinine 4.45 MG/DL (0.60-1.30) 5.52 MG/DL (0.60-1.30) Random Glucose 64 MG/DL (74-106) 77 MG/DL (74-106) Albumin 3.1 GM/DL (3.4-5.0) Calcium Level 9.8 MG/DL (8.5-10.1) 10.0 MG/DL (8.5-10.1) Phosphorus Level 3.6 MG/DL (2.5-4.9) Magnesium Level 2.3 MG/DL (1.5-2.5) 2.6 MG/DL (1.5-2.5) Sodium Level 141 MEQ/L (136-145) 140 MEQ/L (136-145) Potassium Level 4.3 MEQ/L (3.5-5.1) 5.3 MEQ/L (3.5-5.1) Chloride Level 104 MEQ/L (98-107) 99 MEQ/L (98-107) Carbon Dioxide Level 30.6 MEQ/L (21.0-32.0) 30.5 MEQ/L (21.0-32.0) Anion Gap 6 MEQ/L (5-15) 11 MEQ/L (5-15) Estimat Glomerular Filtration Rate 13 ML/MIN (>89) 10 ML/MIN (>89) Digoxin Level 2.4 NG/ML (0.8-2.0) 3.1 NG/ML (0.8-2.0) Blood Gas Puncture Site RT BRACHIAL Blood Gas Patient Temperature 98.6 Blood Gas HCO3 28 mmol/L (22-26) Blood Gas Base Excess 3.2 mmol/L (-2-2) Blood Gas Oxygen Saturation 97 % (90-100) Arterial Blood pH 7.36 (7.380-7.420) Arterial Blood Partial Pressure CO2 52 mmHg (38-42) Arterial Blood Partial Pressure O2 332 mmHg (61-120) Arterial Blood Oxygen Content 11.7 Vol % (12.0-20.0) Arterial Blood Carboxyhemoglobin 2.6 % (0-4) Arterial Blood Methemoglobin 0.8 % (0-2) Blood Gas Hemoglobin 8.0 G/DL (12.0-16.0) Oxygen Delivery Device VENTILATOR Blood Gas Ventilator Setting [facility]/ Blood Gas Inspired Oxygen 100 % Lactic Acid Level 3.1 mmol/L (0.4-2.0) Test 06/08/17 23:58 06/09/17 05:02 Lactic Acid Level 1.5 mmol/L (0.4-2.0) White Blood Count 9.8 TH/MM3 (4.0-11.0) Red Blood Count 2.70 MIL/MM3 (4.50-5.90) Hemoglobin 9.0 GM/DL (13.0-17.0) Hematocrit 26.5 % (39.0-51.0) Mean Corpuscular Volume 98.0 FL (80.0-100.0) Mean Corpuscular Hemoglobin 33.1 PG (27.0-34.0) Mean Corpuscular Hemoglobin Concent 33.8 % (32.0-36.0) Red Cell Distribution Width 20.9 % (11.6-17.2) Platelet Count 197 TH/MM3 (150-450) Mean Platelet Volume 9.5 FL (7.0-11.0) Neutrophils (%) (Auto) 83.0 % (16.0-70.0) Lymphocytes (%) (Auto) 6.4 % (9.0-44.0) Monocytes (%) (Auto) 10.0 % (0.0-8.0) Eosinophils (%) (Auto) 0.4 % (0.0-4.0) Basophils (%) (Auto) 0.2 % (0.0-2.0) Neutrophils # (Auto) 8.1 TH/MM3 (1.8-7.7) Lymphocytes # (Auto) 0.6 TH/MM3 (1.0-4.8) Monocytes # (Auto) 1.0 TH/MM3 (0-0.9) Eosinophils # (Auto) 0.0 TH/MM3 (0-0.4) Basophils # (Auto) 0.0 TH/MM3 (0-0.2) CBC Comment DIFF FINAL Differential Comment Blood Urea Nitrogen 47 MG/DL (7-18) Creatinine 4.25 MG/DL (0.60-1.30) Random Glucose 88 MG/DL (74-106) Total Protein 6.3 GM/DL (6.4-8.2) Albumin 3.5 GM/DL (3.4-5.0) Calcium Level 10.2 MG/DL (8.5-10.1) Phosphorus Level 2.8 MG/DL (2.5-4.9) Magnesium Level 2.4 MG/DL (1.5-2.5) Alkaline Phosphatase 75 U/L (45-117) Aspartate Amino Transf (AST/SGOT) 30 U/L (15-37) Alanine Aminotransferase (ALT/SGPT) 28 U/L (12-78) Total Bilirubin 1.5 MG/DL (0.2-1.0) Sodium Level 143 MEQ/L (136-145) Potassium Level 3.7 MEQ/L (3.5-5.1) Chloride Level 103 MEQ/L (98-107) Carbon Dioxide Level 29.4 MEQ/L (21.0-32.0) Anion Gap 11 MEQ/L (5-15) Estimat Glomerular Filtration Rate 14 ML/MIN (>89) Result Diagram: 06/09/17 0502 06/09/17 0502 Microbiology Microbiology Date/Time Source Procedure Growth Status 06/08/17 15:56 Blood Peripheral Aerobic Blood Culture - Preliminary NO GROWTH IN 1 DAY Resulted 06/08/17 15:56 Blood Peripheral Anaerobic Blood Culture - Preliminary NO GROWTH IN 1 DAY Resulted 06/08/17 15:51 Blood Peripheral Aerobic Blood Culture - Preliminary NO GROWTH IN 1 DAY Resulted 06/08/17 15:51 Blood Peripheral Anaerobic Blood Culture - Preliminary NO GROWTH IN 1 DAY Resulted 06/08/17 16:31 Wound Back Gram Stain - Final Resulted 06/08/17 16:31 Wound Back Wound Culture - Preliminary Resulted Imaging Last Impressions Chest X-Ray 06/09/17 0216 Signed Impressions: Service Date/Time: Friday, June 09, 2017 02:30 - CONCLUSION: 1. Left IJ central line distal tip in the SVC. No pneumothorax is visualized. 2. Stable bilateral pleural effusions with associated volume loss and/or airspace consolidation. Landon Marrero MD . Procedures * 06/09/17 - left IJ central line placement * 06/08/17 - intubation . Patient/Family Conference Present at Family Conference: Met with sonElier and his at bedside. Family Conference Time (mins): 45 Family Conference Location: Bedside Issues Discussed: * Palliative care role, purpose, approach * Additional medical, psychosocial, and spiritual history * Patients general health, functional status, and cognitive changes in the months leading up to the current hospitalization * Patient/family understanding of the current medical problems * Patient/family understanding of prognosis * Patients goals of care as best understood from advance directives and/or conversations and/or values * Current medical treatment options and benefits/burdens of those options * Likely scenarios comparing ongoing aggressive care with a transition to comfort measures only * Questions answered to the best of my ability * Palliative care contact information provided Assessment and Plan Disease Oriented Problem List: (1) Decubitus ulcer of sacral region, unstageable (2) Severe aortic valve stenosis (3) Atrial fibrillation (4) Coagulopathy (5) DM2 (diabetes mellitus, type 2) (6) End stage renal disease on dialysis (7) CAD (coronary artery disease) (8) Acute exacerbation of CHF (congestive heart failure) (9) Hypotension (10) GI bleed (11) Pulmonary edema (12) Anemia (13) Supratherapeutic INR Symptom Scale: (1) Dyspnea 0-10 Scale: Unable to quantify Comment: on mech vent (2) Pain 0-10 Scale: Unable to quantify Comment: on Fentanyl drip. . Pertinent Non-Medical Issues Psychosocial: Single. Has 3 sons. 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 Legal: Decision Maker: Patient is not capacitated to make his own healthcare decisions, will not regain capacity. Family indicates Elier alonzo is designated healthcare surrogate. Paperwork requested, will bring at next visit. Ethical issues impacting care: No known concerns at this time. . Important Contacts * Elier Young, son: [phone] * Terrell Young, son: [phone] . Prognosis Not expected to survive this hospitalization given advanced age, recent trajectory of decline, multiple medical comorbidities including ESRD on HD and severe aortic stenosis, not a candidate for surgical intervention, respiratory failure and shock. Patient has terminal and end stage illness. . Code Status: No Code Plan * Decision Maker: Patient is not capacitated to make his own healthcare decisions, will not regain capacity. Family indicates Elier alonzo is designated healthcare surrogate. Paperwork requested, will bring at next visit. * NO CODE * Palliative care met with Elier alonzo and DIL at bedside. Medical update provided. Family reports ongoing decline and that "patient would not want to live like this." Elects NO CODE with continued aggressive care for now short of NO CODE. Elier wants to speak with his brother and patient's sister before making further decisions. I would anticipate transition to comfort measures, likely Wednesday based on my conversation today. * Gas Station Supervisor requested for visit when family present on 06/11/17. * SYMPTOMS: Pain: appears comfortable on mech vent. On Fentanyl drip 100mcg. Dyspnea: on mech vent. On Versed and Fentanyl. Appears comfortable. No new medication recommendations at this time. * Palliative care number provided. * Palliative care will continue to follow throughout hospital course to assist with symptom management and clarification of goals as needed. . Thank you for the opportunity to participate in the care of Mr. Young. Attestation To help prompt me to consider important information that might be impacting today's encounter and assessment, information from prior notes written by myself or my colleagues may have been "brought forward" into today's note. My signature on this note, however, is an attestation that I personally performed the exam, history, and/or decision-making noted today, and, unless otherwise indicated, the interactions with patient, family, and staff as well as the review of records all occurred today. I also attest that the listed assessment and stated plan reflect my best clinical judgment today based on the combination of historical information, prior notes, and today's exam/ interactions. When time spent is documented, it refers only to time spent today by the signer, or if indicated, combined time spent today by collaborating physician/nurse practitioner. Zuleima López Jun 09, 2017 12:10
[2017-06-09] MEDS: PANTOPRAZOLE SODIUM 40 MG VIAL IV PUSH SCH (13:36)
--- NOTE | 2017-06-09 14:33 | HHI.IDPN ---
Note Infectious Disease Note Patient was transferred to intensive care unit because of acute respiratory distress. He is now intubated and on the ventilator. He is sedated and unresponsive. Afebrile. Patient had episode of low-grade temperature of 100. Patient as admitted to the hospital because of increased INR, which was greater than 13, and low hemoglobin. Patient has a history of end-stage renal disease and undergoes hemodialysis 3 days a week. He also had a chest x-ray, which showed [id number] pulmonary edema. During hospitalization, his workup revealed severe aortic stenosis. Patient is anticipated to have aortic valve replacement, but he needs to have teeth extracted prior to any surgical intervention. Consulted for altered mental status and low-grade temp. PAST MEDICAL HISTORY: Hypertension, diabetes mellitus type 2, hyperlipidemia, atrial fibrillation, end-stage renal disease, on hemodialysis 3 days a week, aortic stenosis, anemia of chronic disease, history of C. difficile, AV fistula, pilonidal cyst. ALLERGIES: NO KNOWN DRUG ALLERGIES. MEDICATIONS: Current Medications Medications (Trade) Dose Ordered Sig/Jamal Route PRN Reason Start Time Stop Time Status Last Admin Dose Admin Miscellaneous Information 1 [id number] XX 06/04/17 20:30 06/04/17 22:15 Chlorhexidine Gluconate (Chlorhexidine 2% Cloth) 3 pack Taper DAILY@04 TOP 06/05/17 04:00 06/01/18 03:59 06/09/17 04:00 Chlorhexidine Gluconate (Chlorhexidine 2% Cloth) 3 pack UNSCH PRN TOP HYGIENIC CARE 06/04/17 20:30 Allopurinol (Zyloprim) 100 mg DAILY PO 06/05/17 09:00 06/09/17 09:31 Amiodarone HCl (Cordarone) 400 mg TIDPC PO 06/05/17 09:30 06/09/17 09:31 Cinacalcet (Sensipar) 30 mg DAILY PO 06/05/17 09:00 06/09/17 10:52 Digoxin (Lanoxin) 0.125 mg Q48H PO 06/04/17 23:00 Future Hold 06/06/17 23:43 Sevelamer Carbonate (Renvela) 2,400 mg TID PO 06/05/17 09:00 06/09/17 09:31 Albumin Human 100 ml @ 60 mls/hr UNSCH PRN IV WITH DIALYSIS 06/04/17 22:45 06/08/17 13:38 Phenylephrine HCl 160 mg/Dextrose 500 ml @ 7.5 mls/hr TITRATE PRN IV Blood pressure management 06/04/17 22:30 06/08/17 18:30 Terbutaline Sulfate (Brethine Inj) 1 mg UNSCH PRN SQ For Extravasation 06/04/17 22:30 Mupirocin (Bactroban Nasal 2% Oint) 1 applic Taper BID EACH NARE 06/05/17 21:00 06/01/18 20:59 06/09/17 09:31 Acetaminophen (Tylenol 650 Mg/ 20 ml Liq) 650 mg Q6H PRN PO fever 06/05/17 17:00 Dextrose (D50w (Vial) Inj) 50 ml UNSCH PRN IV PUSH HYPOGLYCEMIA-SEE COMMENTS 06/05/17 17:00 06/09/17 00:07 Glucagon (Glucagon Inj) 1 mg UNSCH PRN OTHER HYPOGLYCEMIA-SEE COMMENTS 06/05/17 17:00 Pantoprazole Sodium (Protonix Inj) 40 mg Q24H IV PUSH 06/07/17 14:00 06/09/17 13:36 Lidocaine (L-M-X 4 Cream) 1 applic DAILY TOPICAL 06/07/17 18:00 06/09/17 09:32 Collagenase (Santyl Oint) 1 applic DAILY TOPICAL 06/07/17 18:00 06/09/17 09:00 Warfarin Sodium (Coumadin) 1 mg DAILY@16 PO 06/08/17 16:00 Piperacillin Sod/ Tazobactam Sod 50 ml @ 100 mls/hr Q12H IV 06/08/17 16:00 06/09/17 03:34 Chlorhexidine Gluconate (Peridex 0.12% Liq) 15 ml BID@08,20 MT 06/08/17 20:00 06/09/17 09:30 Insulin Human Regular (NovoLIN R SUPPLEMENTAL SCALE) 1 Q6HR SQ 06/09/17 00:00 Albuterol/ Ipratropium (Duoneb Neb) 1 ampule Q6HR NEB INH 06/08/17 22:00 06/09/17 08:03 Albuterol/ Ipratropium (Duoneb Neb) 1 ampule Q2HR NEB PRN INH WHEEZING 06/08/17 18:30 Chlorhexidine Gluconate (Peridex 0.12% Liq) 15 ml BID@08,20 MT 06/09/17 08:00 Fentanyl Citrate 250 ml @ 5 mls/hr TITRATE PRN IV SEDATION 06/08/17 22:15 06/08/17 22:40 Midazolam HCl 100 ml @ 2 mls/hr TITRATE PRN IV SEDATION 06/08/17 22:15 06/08/17 22:40 Sodium Chloride (NS Flush) DAILY IV FLUSH 06/09/17 09:00 06/09/17 09:32 Sodium Chloride (NS Flush) UNSCH PRN IV FLUSH SEE PROTOCOL 06/09/17 02:30 Sodium Chloride 1,000 ml @ 0 mls/hr Q0M PRN OTHER For Prime & Rinse Back 06/09/17 02:30 Heparin Sodium (Porcine) (Heparin Inj) 8,000 units UNSCH PRN IV FLUSH WITH DIALYSIS 06/09/17 02:30 Sodium Chloride 1,000 ml @ 200 mls/hr Q5H PRN IV WITH DIALYSIS 06/09/17 02:30 Sodium Chloride 1,000 ml @ 0 mls/hr Q0M PRN OTHER WITH DIALYSIS 06/09/17 02:30 Mannitol (Mannitol Inj) 12.5 gm UNSCH PRN IV WITH DIALYSIS 06/09/17 02:30 Sodium Chloride (NS Flush) 5 ml UNSCH PRN IV FLUSH WITH DIALYSIS 06/09/17 02:30 Heparin Sodium (Porcine) (Heparin Inj) UNSCH PRN .XX WITH DIALYSIS 06/09/17 02:30 Gentamicin Sulfate (Gentamicin Inj) 20 mg UNSCH PRN OTHER WITH DIALYSIS 06/09/17 02:30 Ondansetron HCl (Zofran Inj) 4 mg UNSCH PRN IV PUSH WITH DIALYSIS 06/09/17 02:30 Acetaminophen (Tylenol) 650 mg UNSCH PRN PO for headach, pain, temp > 101F 06/09/17 02:30 Diphenhydramine HCl (Benadryl) 25 mg UNSCH PRN PO for hives/itching/anaphylaxis 06/09/17 02:30 Nitroglycerin (Nitrostat Sl) 0.4 mg UNSCH PRN SL CHEST PAIN 06/09/17 02:30 Clonidine (Catapres) 0.1 mg UNSCH PRN PO for BP > 180/100 X 2 readings 06/09/17 02:30 Epoetin Norman (Epogen Inj) 10,000 units UNSCH PRN IV PUSH WITH DIALYSIS 06/09/17 02:30 Gelatin (Gelfoam 12 Mm/7 Mm Top) 1 foam UNSCH PRN TOP SEE LABEL COMMENTS 06/09/17 02:30 SOCIAL HISTORY: No tobacco, no alcohol, no illicit drugs. REVIEW OF SYSTEMS: Unable to obtain because of the patient's current mental status. OBJECTIVE: Vital Signs Date Time Temp Pulse Resp B/P (MAP) Pulse Ox O2 Delivery O2 Flow Rate FiO2 06/09/17 11:43 95 40 06/09/17 08:04 100 40 06/09/17 08:00 97.9 75 15 118/57 (77) 100 06/09/17 06:00 73 06/09/17 04:00 98.5 72 15 138/65 (89) 100 06/09/17 04:00 40 06/09/17 04:00 70 06/09/17 03:26 100 40 06/09/17 02:00 66 06/09/17 00:00 98.3 70 15 132/61 (84) 100 06/09/17 00:00 40 06/09/17 00:00 70 06/08/17 23:32 100 40 06/08/17 22:00 74 06/08/17 20:30 40 06/08/17 20:00 74 06/08/17 20:00 100.0 74 20 121/56 (77) 100 06/08/17 19:32 100 45 06/08/17 19:00 45 06/08/17 18:30 75 57/35 06/08/17 17:45 19 47 06/08/17 16:30 93 Venturi Mask 6.00 50 06/08/17 16:30 98.7 75 19 107/55 (72) 95 06/08/17 15:20 Venturi Mask 06/08/17 14:37 22 95 06/08/17 14:35 83 Nasal Cannula 4.00 06/08/17 14:33 94 Venturi Mask 6.00 50 06/08/17 14:30 21 77 Laboratory Tests Test 06/08/17 05:33 06/09/17 05:02 White Blood Count 6.7 TH/MM3 9.8 TH/MM3 Red Blood Count 2.92 MIL/MM3 2.70 MIL/MM3 Hemoglobin 9.6 GM/DL 9.0 GM/DL Hematocrit 29.2 % 26.5 % Mean Corpuscular Volume 100.1 FL 98.0 FL Mean Corpuscular Hemoglobin 33.0 PG 33.1 PG Mean Corpuscular Hemoglobin Concent 33.0 % 33.8 % Red Cell Distribution Width 21.5 % 20.9 % Platelet Count 204 TH/MM3 197 TH/MM3 Mean Platelet Volume 10.1 FL 9.5 FL Neutrophils (%) (Auto) 83.0 % Lymphocytes (%) (Auto) 6.4 % Monocytes (%) (Auto) 10.0 % Eosinophils (%) (Auto) 0.4 % Basophils (%) (Auto) 0.2 % Neutrophils # (Auto) 8.1 TH/MM3 Lymphocytes # (Auto) 0.6 TH/MM3 Monocytes # (Auto) 1.0 TH/MM3 Eosinophils # (Auto) 0.0 TH/MM3 Basophils # (Auto) 0.0 TH/MM3 CBC Comment DIFF FINAL Differential Comment Laboratory Tests Test 06/08/17 05:33 06/08/17 19:49 06/08/17 23:58 06/09/17 05:02 Blood Urea Nitrogen 62 MG/DL 47 MG/DL Creatinine 5.52 MG/DL 4.25 MG/DL Random Glucose 77 MG/DL 88 MG/DL Calcium Level 10.0 MG/DL 10.2 MG/DL Magnesium Level 2.6 MG/DL 2.4 MG/DL Sodium Level 140 MEQ/L 143 MEQ/L Potassium Level 5.3 MEQ/L 3.7 MEQ/L Chloride Level 99 MEQ/L 103 MEQ/L Carbon Dioxide Level 30.5 MEQ/L 29.4 MEQ/L Anion Gap 11 MEQ/L 11 MEQ/L Estimat Glomerular Filtration Rate 10 ML/MIN 14 ML/MIN Lactic Acid Level 3.1 mmol/L 1.5 mmol/L Total Protein 6.3 GM/DL Albumin 3.5 GM/DL Phosphorus Level 2.8 MG/DL Alkaline Phosphatase 75 U/L Aspartate Amino Transf (AST/SGOT) 30 U/L Alanine Aminotransferase (ALT/SGPT) 28 U/L Total Bilirubin 1.5 MG/DL Microbiology Date/Time Source Procedure Growth Status 06/08/17 15:56 Blood Peripheral Aerobic Blood Culture - Preliminary NO GROWTH IN 1 DAY Resulted 06/08/17 15:56 Blood Peripheral Anaerobic Blood Culture - Preliminary NO GROWTH IN 1 DAY Resulted 06/08/17 15:51 Blood Peripheral Aerobic Blood Culture - Preliminary NO GROWTH IN 1 DAY Resulted 06/08/17 15:51 Blood Peripheral Anaerobic Blood Culture - Preliminary NO GROWTH IN 1 DAY Resulted 06/08/17 16:31 Wound Back Gram Stain - Final Resulted 06/08/17 16:31 Wound Back Wound Culture - Preliminary Resulted IMAGING: Chest X-Ray 06/09/176 Signed Impressions: Service Date/Time: Friday, June 09, 2017 02:30 - CONCLUSION: 1. Left IJ central line distal tip in the SVC. No pneumothorax is visualized. 2. Stable bilateral pleural effusions with associated volume loss and/or airspace consolidation. Landon Marrero MD PHYSICAL EXAMINATION: GENERAL: Patient on the ventilator. HEENT: The head is atraumatic. Extraocular movements appear grossly intact. No icterus. Oropharynx moist mucosa. NECK: Supple without adenopathy. LUNGS: Decreased breath sounds. HEART: Irregular rate and rhythm. 4/6 systolic murmur at the left sternal border. ABDOMEN: Bowel sounds present, diminished bowel sounds, soft. BACK: Sacral decubitus ulceration with francis necrotic-appearing tissue within an ulcer crater, which is very foul smelling and is surrounded by denuded skin at the buttocks. There is slight bloody drainage on the dressing. EXTREMITIES: No clubbing, cyanosis or edema. SKIN: No diffuse rash. NEUROLOGIC: Difficult to assess. PSYCHIATRIC: Unable to assess. IMPRESSION: 1. Acute respiratory failure. 2. Altered mental status, likely secondary to infection. 3. Sepsis syndrome suggested by low-grade fever along with altered mental status and low blood pressure from earlier today. 4. Infected sacral decubitus ulceration. Culture has mixed gram-negative dariana. 5. End-stage renal disease, on hemodialysis. 5. Severe aortic stenosis. 6. Pulmonary edema. RECOMMENDATIONS: 1. Continue piperacillin/tazobactam to cover pseudomonas and also anaerobic organisms. 2. Additional culture of the sacral wound if surgical debridement is performed. Patient is intubated and on the ventilator and therefore Would hold off for plastic surgery surgery consultation. 3. Monitor temperature. 4. Monitor clinical status. 5. Monitor blood cultures. Discussed with and son at bedside. Timothy Almanza MD Jun 09, 2017 14:33
[2017-06-09] MEDS: WARFARIN SOD 1 MG TAB PO SCH (15:24)
[2017-06-09] MEDS: fentaNYL DRIP 250 ML IV PRN (20:38)
[2017-06-10] VITALS (17 sets, daily range): BP systolic 100–159; BP diastolic 50–69; PULSE 62–78; RESP 15–17; TEMP 97.8–100; O2SAT 97–100
[2017-06-10] MEDS: RESP: ALBUTEROL 2.5 MG/IPRATROPIUM 0.5 MG NEB (SCH) INH ×3 (02:57→20:48)
[2017-06-10] MEDS: PIPERACIL-TAZO 2.25 GM PREMIX 50 ML IV SCH ×2 (03:59→16:14)
[2017-06-10] MEDS: CHLORHEXIDINE GLUCONATE 2 % 1 PACK (2 CLOTHS) TOP SCH (04:00)
[2017-06-10 05:28] LABS: HEMATOCRIT 30.4 % (39.0-51.0); MEAN CELL VOLUME 98.5 FL (80.0-100.0); MEAN CORPUSCULAR HEMOGLOBIN 32.4 PG (27.0-34.0); MEAN CORPUSCULAR HGB CONC 32.9 % (32.0-36.0); MEAN PLATELET VOLUME 9.9 FL (7.0-11.0); PLATELET COUNT 224 TH/MM3 (150-450); RED BLOOD COUNT 3.09 MIL/MM3 (4.50-5.90); RED CELL DISTRIBUTION WIDTH 20.7 % (11.6-17.2); WHITE BLOOD COUNT 7.4 TH/MM3 (4.0-11.0)
[2017-06-10] MEDS: INSULIN NovoLIN REGULAR SUPPLEMENTAL SCALE SQ SCH ×5 (06:00→23:49)
[2017-06-10 06:15] LABS: BICARBONATE 29.5 MEQ/L (21.0-32.0); CALCIUM 10.7 MG/DL (8.5-10.1); CREATININE 4.99 MG/DL (0.60-1.30)
[2017-06-10] MEDS: CHLORHEXIDINE 0.12% (ORAL KIT) 15 ML CUP MT SCH ×4 (08:00→20:16)
[2017-06-10] MEDS: SODIUM CHLORIDE 0.9% FLUSH 10 ML FLUSH IV FLUSH SCH (08:41)
[2017-06-10] MEDS: CINACALCET HYDROCHLORIDE 30 MG TAB PO SCH (09:00)
[2017-06-10] MEDS: SEVELAMER CARBONATE 800 MG TAB PO SCH ×3 (09:00→18:00)
[2017-06-10] MEDS: MUPIROCIN 2% OINT 1 APPLIC/GM SYR EACH NARE SCH ×2 (09:00→20:16)
--- NOTE | 2017-06-10 10:23 | HHI.NPPN ---
Subjective General Problems: Anemia Renal Failure: End Stage Renal Disease History of Present Illness Patient is a 76-year-old male with past medical history significant for severe aortic stenosis (peak 94, mean 55, NATA 0.5), recurrent congestive heart failure, coronary artery disease with LAD lesion, hypertension, on dialysis for end-stage renal disease, atrial fibrillation on warfarin, who was sent to the emergency department from [facility] for INR>13 and hemoglobin low. He denied any chest pain or dizziness, further ER workup revealed he had a hemoglobin of 6.5 INR was 13.6. BNP was elevated at 1209. Chest x-ray showed severe pulmonary vascular congestion and bilateral effusions. Patient has severe aortic stenosis, and had been seen by Dr. Ortiz and cardiothoracic surgeon Dr. Nielson before, plan is for PCI and TAVR once stable and prior to that patient needed teeth extracted, and was to follow up as OP with Dr. Santiago. I was notified of patient's clinical situation by ER Nurse practitioner. Because of pulmonary edema and need for blood products emergency dialysis was arranged and carried out last night. He has received 2 units of PRBC and 2 units of FFP. Also has received Vitamin K and Kcintra. This morning he is extremely lethargic and unable to provide any history Additional Remarks Patient sedated on ventilator (Prachi Huitron) Review of Systems General Constitutional: Fatigue General Remarks Intubated and sedated (Prachi Huitron) Objective Data Data Vital Signs Date Time Temp Pulse Resp B/P (MAP) Pulse Ox O2 Delivery O2 Flow Rate FiO2 06/10/17 08:16 40 06/10/17 08:10 100 40 06/10/17 06:00 70 06/10/17 04:00 68 06/10/17 04:00 40 06/10/17 04:00 98.6 68 15 102/57 (72) 100 06/10/17 02:54 100 40 06/10/17 02:00 64 06/10/17 00:00 40 06/10/17 00:00 97.8 66 15 107/51 (69) 100 06/10/17 00:00 66 06/09/17 23:37 100 40 06/09/17 22:00 62 06/09/17 20:00 40 06/09/17 20:00 97.7 62 15 97/52 (67) 100 06/09/17 20:00 62 06/09/17 19:42 100 40 06/09/17 19:00 100 Mechanical Ventilator 40 06/09/17 18:00 71 06/09/17 16:00 97.7 77 15 96/50 (65) 100 06/09/17 16:00 77 06/09/17 16:00 40 06/09/17 15:24 100 40 06/09/17 14:00 70 06/09/17 12:00 69 06/09/17 12:00 97.6 69 15 117/56 (76) 100 06/09/17 12:00 40 06/09/17 11:43 95 40 (Prachi Huitron) -: 06/10/17 0515 06/10/17 0515 Physical Exam General Appearance: Malnourished (Prachi Huitron) Eyes Eye Exam: Pupils Equal (Prachi Huitron) Neck Neck Exam: Neck Supple (Prachi Huitron) Pulmonary Resp Exam: No Distress (Prachi Huitron) Cardiology CV Exam: Irregular, Murmur (Prachi Huitron) Gastrointestinal/Abdomen GI Exam: Soft, Non-Tender, Bowel Sounds Present (Prachi Huitron) Extremeties Extremities Exam: No Edema (Prachi Huitron) Assessment/Plan Problem List: (1) ESRD (end stage renal disease) on dialysis ICD Codes: N18.6 - End stage renal disease; Z99.2 - Dependence on renal dialysis Plan: Dialyzes TTS Plan continue Cinacalcet at 30 mg p.o. daily for secondary hyperparathyroidism. Continue Sevelamer carbonate 2400 mg p.o. 3 times daily for hyperphosphatemia Epogen with dialysis Dialysis planned for today on becka synephrine for blood pressure support Palliative care following and now a DNR. Prognosis is poor. (2) Coagulopathy ICD Codes: D68.9 - Coagulation defect, unspecified Plan: Given FFP, Vitamin K, Kcentra. Improved. (3) Anemia ICD Codes: D64.9 - Anemia Status: Acute Plan: blood loss anemia, in the context of GI bleeding and coagulopathy. Hemoglobin has improved with blood transfusion. (4) Severe aortic valve stenosis ICD Codes: I35.0 - Nonrheumatic aortic (valve) stenosis Plan: need for surgical therapy (TAVR). Prognosis is very poor. (5) Atrial fibrillation ICD Codes: I48.91 - Unspecified atrial fibrillation Plan: He is on amiodarone. Was on Coumadin. (6) Pulmonary edema ICD Codes: J81.1 - Chronic pulmonary edema Status: Acute Plan: On O2 at 2 liters (Prachi Huitron) Problem List: (1) ESRD (end stage renal disease) on dialysis ICD Codes: N18.6 - End stage renal disease; Z99.2 - Dependence on renal dialysis Plan: Dialyzes TTS Plan continue Cinacalcet at 30 mg p.o. daily for secondary hyperparathyroidism. Continue Sevelamer carbonate 2400 mg p.o. 3 times daily for hyperphosphatemia Epogen with dialysis Dialysis planned for today on becka synephrine for blood pressure support Palliative care following and now a DNR. Prognosis is poor. Patient seen and examined, agree with above. HD done today. Possible withdrawal tomorrow as per family. (2) Coagulopathy ICD Codes: D68.9 - Coagulation defect, unspecified Plan: Given FFP, Vitamin K, Kcentra. Improved. (3) Anemia ICD Codes: D64.9 - Anemia Status: Acute Plan: blood loss anemia, in the context of GI bleeding and coagulopathy. Hemoglobin has improved with blood transfusion. (4) Severe aortic valve stenosis ICD Codes: I35.0 - Nonrheumatic aortic (valve) stenosis Plan: need for surgical therapy (TAVR). Prognosis is very poor. (5) Atrial fibrillation ICD Codes: I48.91 - Unspecified atrial fibrillation Plan: He is on amiodarone. Was on Coumadin. (6) Pulmonary edema ICD Codes: J81.1 - Chronic pulmonary edema Status: Acute Plan: On O2 at 2 liters (Quiana Mayers MD) Problem Qualifiers (1) Anemia: Qualified Codes: D64.9 - Anemia, unspecified (2) Pulmonary edema: Qualified Codes: J81.0 - Acute pulmonary edema Prachi Huitron Jun 10, 2017 10:22 Quiana Mayers MD Jun 10, 2017 21:38
[2017-06-10] MEDS: ALLOPURINOL 100 MG TAB PO SCH (10:29)
[2017-06-10] MEDS: LIDOCAINE 4% CREAM 5 GM TUBE TOPICAL SCH (10:29)
[2017-06-10] MEDS: COLLAGENASE OINT 30 GM TUBE TOPICAL SCH (10:30)
[2017-06-10] MEDS: AMIODARONE 200 MG TAB PO SCH ×3 (10:30→19:01)
[2017-06-10] MEDS: ALBUMIN 25% INJ 100 ML IV PRN (12:30)
[2017-06-10] MEDS: PANTOPRAZOLE SODIUM 40 MG VIAL IV PUSH SCH (14:00)
--- NOTE | 2017-06-10 14:27 | HHI.HCPN ---
Reason for visit a. To assist with evaluation and management of symptoms including: dyspnea, pain. b. To assist medical decision maker(s) with: better understanding of current medical conditions; weighing benefits/burdens of medical treatment options; making medical treatment decisions. . Subjective/Interval History Patient seen and examined in ICU. No family at bedside. Discussed with Dr. Hahn, Dr. Metzger, bedside nurse and dialysis nurse. Patient remains sedated (fentanyl 100 and Versed 2) on mech vent, FiO2 40%. No significant clinical change overnight. Afebrile. Remains on pressor support. WBC 7.4, hemoglobin 10.0, hematocrit 30.4, platelet count 224. Creatinine 4.99. Total bilirubin 1.5. Sacral wound Staphylococcus species, final results pending. Blood cultures no growth in 2 days. No new imaging. . Family/friend interactions Spoke with Elier xie via telephone to provide medical update. Text message with photograph of Durable power of criminal defense attorney and Living Will received. He will bring copies when he comes 06/11/17. Elier Xie is designated HCS. Family has discussed patient wishes and have elected to proceed with transition to comfort focused measures with withdrawal of life support on 06/11/17, time to be determined. Son will call me later today with time when family can coordinate timing. Family requests knife blade polisher be present prior to withdrawal of life support. . Advance Directives Advance Directive Specifics Health Care Surrogate(s): Patient is not capacitated to make his own healthcare decisions, will not regain capacity. According to written Durable Power of Nerve Specialist for healthcare and living will Elier xie is designated healthcare surrogate. Paperwork requested, will bring at next visit. . Objective Vital Signs Date Time Temp Pulse Resp B/P (MAP) Pulse Ox O2 Delivery O2 Flow Rate FiO2 06/10/17 12:00 68 06/10/17 11:38 100 40 06/10/17 10:00 77 06/10/17 08:16 40 06/10/17 08:10 100 40 06/10/17 08:00 75 06/10/17 08:00 40 06/10/17 08:00 98.5 70 15 129/63 (85) 100 06/10/17 07:00 100 Mechanical Ventilator 6.00 40 06/10/17 06:00 70 06/10/17 04:00 68 06/10/17 04:00 40 06/10/17 04:00 98.6 68 15 102/57 (72) 100 06/10/17 02:54 100 40 06/10/17 02:00 64 06/10/17 00:00 40 06/10/17 00:00 97.8 66 15 107/51 (69) 100 06/10/17 00:00 66 06/09/17 23:37 100 40 06/09/17 22:00 62 06/09/17 20:00 40 06/09/17 20:00 97.7 62 15 97/52 (67) 100 06/09/17 20:00 62 06/09/17 19:42 100 40 06/09/17 19:00 100 Mechanical Ventilator 40 06/09/17 18:00 71 06/09/17 16:00 97.7 77 15 96/50 (65) 100 06/09/17 16:00 77 06/09/17 16:00 40 06/09/17 15:24 100 40 Intake & Output 06/10/17 06/10/17 07:00 19:00 Intake Total 496 ml Output Total 0 ml Balance 496 ml IV Total 50 ml Tube Feeding 446 ml Output Urine Total 0 ml # Bowel Movements 3 Physical Exam CONSTITUTIONAL/GENERAL: This is an elderly, cachectic, critically ill patient, sedated on mechanical ventilation. TUBES/LINES/DRAINS: ETT, OG, PIPs, bilateral soft wrist restraints, SCDs, Hernandez , AV fistula. SKIN: No jaundice, rashes, or lesions. Ecchymoses and skin tears on upper extremities. Sacral decubitus, not visualized during my visit today. Skin temperature appropriate. Not diaphoretic. HEAD: Bilateral temporal wasting. Atraumatic. Normocephalic. EYES: eyes closed. ENT: Unable to assess hearing. Nose without bleeding or purulent drainage. Poor dentition, difficult to visualize throat secondary to tubes. NECK: Trachea midline. CARDIOVASCULAR: Irregularly, irregular. Atrial fibrillation by telemetry. Systolic murmur noted. RESPIRATORY/CHEST: Scattered coarse breath sounds. GASTROINTESTINAL: Abdomen soft, nondistended. No guarding. Bowel sounds present. GENITOURINARY: Without palpable bladder distension. Hernandez catheter in place. MUSCULOSKELETAL: AV fistula positive bruit and thrill. No mottling or clubbing. LYMPHATICS: No palpable cervical or supraclavicular adenopathy. NEUROLOGICAL: Sedated. PSYCHIATRIC: Sedated. . Diagnostic Tests Laboratory Laboratory Tests Test 06/08/17 05:33 06/08/17 18:30 06/08/17 19:49 06/08/17 23:58 White Blood Count 6.7 TH/MM3 (4.0-11.0) Red Blood Count 2.92 MIL/MM3 (4.50-5.90) Hemoglobin 9.6 GM/DL (13.0-17.0) Hematocrit 29.2 % (39.0-51.0) Mean Corpuscular Volume 100.1 FL (80.0-100.0) Mean Corpuscular Hemoglobin 33.0 PG (27.0-34.0) Mean Corpuscular Hemoglobin Concent 33.0 % (32.0-36.0) Red Cell Distribution Width 21.5 % (11.6-17.2) Platelet Count 204 TH/MM3 (150-450) Mean Platelet Volume 10.1 FL (7.0-11.0) Blood Urea Nitrogen 62 MG/DL (7-18) Creatinine 5.52 MG/DL (0.60-1.30) Random Glucose 77 MG/DL (74-106) Calcium Level 10.0 MG/DL (8.5-10.1) Magnesium Level 2.6 MG/DL (1.5-2.5) Sodium Level 140 MEQ/L (136-145) Potassium Level 5.3 MEQ/L (3.5-5.1) Chloride Level 99 MEQ/L (98-107) Carbon Dioxide Level 30.5 MEQ/L (21.0-32.0) Anion Gap 11 MEQ/L (5-15) Estimat Glomerular Filtration Rate 10 ML/MIN (>89) Digoxin Level 3.1 NG/ML (0.8-2.0) Blood Gas Puncture Site RT BRACHIAL Blood Gas Patient Temperature 98.6 Blood Gas HCO3 28 mmol/L (22-26) Blood Gas Base Excess 3.2 mmol/L (-2-2) Blood Gas Oxygen Saturation 97 % (90-100) Arterial Blood pH 7.36 (7.380-7.420) Arterial Blood Partial Pressure CO2 52 mmHg (38-42) Arterial Blood Partial Pressure O2 332 mmHg (61-120) Arterial Blood Oxygen Content 11.7 Vol % (12.0-20.0) Arterial Blood Carboxyhemoglobin 2.6 % (0-4) Arterial Blood Methemoglobin 0.8 % (0-2) Blood Gas Hemoglobin 8.0 G/DL (12.0-16.0) Oxygen Delivery Device VENTILATOR Blood Gas Ventilator Setting PRVC/AC Blood Gas Inspired Oxygen 100 % Lactic Acid Level 3.1 mmol/L (0.4-2.0) 1.5 mmol/L (0.4-2.0) Test 06/09/17 05:02 06/10/17 05:15 White Blood Count 9.8 TH/MM3 (4.0-11.0) 7.4 TH/MM3 (4.0-11.0) Red Blood Count 2.70 MIL/MM3 (4.50-5.90) 3.09 MIL/MM3 (4.50-5.90) Hemoglobin 9.0 GM/DL (13.0-17.0) 10.0 GM/DL (13.0-17.0) Hematocrit 26.5 % (39.0-51.0) 30.4 % (39.0-51.0) Mean Corpuscular Volume 98.0 FL (80.0-100.0) 98.5 FL (80.0-100.0) Mean Corpuscular Hemoglobin 33.1 PG (27.0-34.0) 32.4 PG (27.0-34.0) Mean Corpuscular Hemoglobin Concent 33.8 % (32.0-36.0) 32.9 % (32.0-36.0) Red Cell Distribution Width 20.9 % (11.6-17.2) 20.7 % (11.6-17.2) Platelet Count 197 TH/MM3 (150-450) 224 TH/MM3 (150-450) Mean Platelet Volume 9.5 FL (7.0-11.0) 9.9 FL (7.0-11.0) Neutrophils (%) (Auto) 83.0 % (16.0-70.0) Lymphocytes (%) (Auto) 6.4 % (9.0-44.0) Monocytes (%) (Auto) 10.0 % (0.0-8.0) Eosinophils (%) (Auto) 0.4 % (0.0-4.0) Basophils (%) (Auto) 0.2 % (0.0-2.0) Neutrophils # (Auto) 8.1 TH/MM3 (1.8-7.7) Lymphocytes # (Auto) 0.6 TH/MM3 (1.0-4.8) Monocytes # (Auto) 1.0 TH/MM3 (0-0.9) Eosinophils # (Auto) 0.0 TH/MM3 (0-0.4) Basophils # (Auto) 0.0 TH/MM3 (0-0.2) CBC Comment DIFF FINAL Differential Comment Blood Urea Nitrogen 47 MG/DL (7-18) 58 MG/DL (7-18) Creatinine 4.25 MG/DL (0.60-1.30) 4.99 MG/DL (0.60-1.30) Random Glucose 88 MG/DL (74-106) 101 MG/DL (74-106) Total Protein 6.3 GM/DL (6.4-8.2) Albumin 3.5 GM/DL (3.4-5.0) Calcium Level 10.2 MG/DL (8.5-10.1) 10.7 MG/DL (8.5-10.1) Phosphorus Level 2.8 MG/DL (2.5-4.9) Magnesium Level 2.4 MG/DL (1.5-2.5) Alkaline Phosphatase 75 U/L (45-117) Aspartate Amino Transf (AST/SGOT) 30 U/L (15-37) Alanine Aminotransferase (ALT/SGPT) 28 U/L (12-78) Total Bilirubin 1.5 MG/DL (0.2-1.0) Sodium Level 143 MEQ/L (136-145) 141 MEQ/L (136-145) Potassium Level 3.7 MEQ/L (3.5-5.1) 3.7 MEQ/L (3.5-5.1) Chloride Level 103 MEQ/L (98-107) 103 MEQ/L (98-107) Carbon Dioxide Level 29.4 MEQ/L (21.0-32.0) 29.5 MEQ/L (21.0-32.0) Anion Gap 11 MEQ/L (5-15) 9 MEQ/L (5-15) Estimat Glomerular Filtration Rate 14 ML/MIN (>89) 11 ML/MIN (>89) Result Diagram: 06/10/1715 06/10/1715 Microbiology Microbiology Date/Time Source Procedure Growth Status 06/08/17 15:56 Blood Peripheral Aerobic Blood Culture - Preliminary NO GROWTH IN 2 DAYS Resulted 06/08/17 15:56 Blood Peripheral Anaerobic Blood Culture - Preliminary NO GROWTH IN 2 DAYS Resulted 06/08/17 15:51 Blood Peripheral Aerobic Blood Culture - Preliminary NO GROWTH IN 2 DAYS Resulted 06/08/17 15:51 Blood Peripheral Anaerobic Blood Culture - Preliminary NO GROWTH IN 2 DAYS Resulted 06/08/17 16:31 Wound Back Gram Stain - Final Resulted 06/08/17 16:31 Wound Culture - Preliminary Staphylococcus Species Resulted Imaging Last Impressions Chest X-Ray 06/09/176 Signed Impressions: Service Date/Time: Wednesday, June 09, 2017 02:30 - CONCLUSION: 1. Left IJ central line distal tip in the SVC. No pneumothorax is visualized. 2. Stable bilateral pleural effusions with associated volume loss and/or airspace consolidation. Landon Marrero MD Procedures * 06/09/17 - left IJ central line placement * 06/08/17 - intubation . Assessment and Plan Disease Oriented Problem List: (1) Decubitus ulcer of sacral region, unstageable (2) Severe aortic valve stenosis (3) Atrial fibrillation (4) Coagulopathy (5) DM2 (diabetes mellitus, type 2) (6) End stage renal disease on dialysis (7) CAD (coronary artery disease) (8) Acute exacerbation of CHF (congestive heart failure) (9) Hypotension (10) GI bleed (11) Pulmonary edema (12) Anemia (13) Supratherapeutic INR Symptom Scale: (1) Dyspnea 0-10 Scale: Unable to quantify Comment: on mech vent (2) Pain 0-10 Scale: Unable to quantify Comment: on Fentanyl drip. . Pertinent Non-Medical Issues Psychosocial: Single. Has 3 sons. Spiritual:Taoist, requests a knife blade polisher visit when family present, requested . Legal: Decision Maker: Patient is not capacitated to make his own healthcare decisions, will not regain capacity. Family indicates son, Elier Young is designated healthcare surrogate. Paperwork requested, will bring at next visit. Ethical issues impacting care: No known concerns at this time. . Important Contacts * Elier Young, son: [phone] * Terrell Young, son: [phone] . Prognosis Not expected to survive this hospitalization given advanced age, recent trajectory of decline, multiple medical comorbidities including ESRD on HD and severe aortic stenosis, not a candidate for surgical intervention, respiratory failure and shock. Patient has terminal and end stage illness. . Code Status: No Code Plan * Decision Maker: Patient is not capacitated to make his own healthcare decisions, will not regain capacity. According to written Durable Power of Nerve Specialist for healthcare and living will Elier xie is designated healthcare surrogate. Family texted copies of [facility] paperwork and will bring original copy on 06/11/17. * NO CODE * Spoke with Elier ixe via telephone to provide medical update. Text message with photograph of Durable power of criminal defense attorney and Living Will received. He will bring copies when he comes 06/11/17. Elier Xie is designated HCS. Family has discussed patient wishes and have elected to proceed with transition to comfort focused measures with withdrawal of life support on 06/11/17, time to be determined. Anticipatory guidance provided. Son will call me later today with time when family can coordinate timing. * Exhibits B & C on chart, signed by Dr. Hahn and Dr. Metzger. * Paperboard Machine Operator requested for visit when family present on 06/11/17. * SYMPTOMS: Pain: appears comfortable on mech vent. On Fentanyl drip 100mcg. Dyspnea: on mech vent. On Versed 2 and Fentanyl 100. Appears comfortable. No new medication recommendations at this time. * Palliative care will continue to follow throughout hospital course to assist with symptom management and clarification of goals as needed. . Attestation To help prompt me to consider important information that might be impacting today's encounter and assessment, information from prior notes written by myself or my colleagues may have been "brought forward" into today's note. My signature on this note, however, is an attestation that I personally performed the exam, history, and/or decision-making noted today, and, unless otherwise indicated, the interactions with patient, family, and staff as well as the review of records all occurred today. I also attest that the listed assessment and stated plan reflect my best clinical judgment today based on the combination of historical information, prior notes, and today's exam/ interactions. When time spent is documented, it refers only to time spent today by the signer, or if indicated, combined time spent today by collaborating physician/nurse practitioner. . Zuleima López Jun 10, 2017 14:27
[2017-06-10] MEDS: PHENYLEPHRINE INJ 160 MG in DEXTROSE 5% IN WATE 500 ML INJ 484 ML IV PRN ×2 (15:34)
--- NOTE | 2017-06-10 17:48 | HHI.CCPN ---
Subjective Remarks/Hospital Course Patient is a 76-year-old male with past medical history significant for severe aortic stenosis (peak 94, mean 55, NATA 0.5), recurrent congestive heart failure, coronary artery disease with LAD lesion, hypertension, on dialysis for end-stage renal disease, atrial fibrillation on warfarin, who was sent to the emergency department from [facility] for INR>13 and hemoglobin low. He denied any chest pain or dizziness, further ER workup revealed he had a hemoglobin of 6.5 INR was 13.6. BNP was elevated at 1209. Chest x-ray showed severe pulmonary vascular congestion and bilateral effusions. Patient has severe aortic stenosis, and had been seen by Dr. Ortiz and cardiothoracic surgeon Dr. Nielson before, plan is for PCI and TAVR once stable and prior to that patient needed teeth extracted, and was to follow up as OP with Dr. Santiago. Given GI bleed and anemia patient is receiving 2 units of PRBC , 2 units of FFP already received vitamin K 10 mg IV. I have also ordered Kcentra as he is hemodynamically unstable, and due to end-stage renal disease will not be able to handle multiple units of FFP. Nephrology Dr. Winters had been contacted, due to pulmonary edema patient will get stat hemodialysis and received blood products at the same time I evaluated the patient in the ICU. Patient is just starting to receive Kcentra. Hemodialysis is about the start blood pressure is low systolic blood pressure 65-70. I will start Yosef-Synephrine to maintain map about 65 and to facilitate hemodialysis, transfuse blood products. Patient's prognosis is guarded. He is mildly encephalopathic at this time Subjective 3/3: Currently resting in bed. Vasopressors have been discontinued. GI is cleared for clear liquid diet. Remains mildly encephalopathic. 3/4: Intermittent bouts of confusion. Follows commands, no vasopressors support needed. Diet has been advanced. Currently continues on Protonix infusion per GI management. 06/08: RECONSULT NOTE: We consulted for acute respiratory failure. Patient well- known to the intensive care medicine service with 3 of severe aortic stenosis with a mean gradient of 55 and a peak velocity greater than 4.1 m/s, end stage renal disease, decubitus ulcer, poor dentition, who is very recently been admitted on previous occasions for cardiogenic shock secondary to severe aortic stenosis and rapid ventricular response of his atrial fibrillation. At that time the patient was recommended to undergo complete full mouth dental extraction followed by balloon aortic valvuloplasty, bare-metal stent to the proximal LAD, in early preparation for workup for transcatheter aortic valve replacement. However, the patient never made it to any of these interventions because he began with GI bleeding and an INR of 13 and was admitted on 06/04 4 acute GI bleeding. He was stabilized at that point and eventually transferred to the floor. Today he presents with new onset fever for which infectious disease service was consulted and started empiric Zosyn, with a presumable source of his decubitus ulcer. Despite this, the patient continued to decline and became acutely altered as well as acutely hypoxemic requiring nonrebreather and then bag mask assistance. He was rapid response from the floor and emergently transferred to the ICU where I evaluated the patient. The patient was in acute respiratory failure and required emergent intubation, see separate procedure note for details. No information is available from the patient due to his acute condition. ROS is unobtainable. 06/09: no meaningful improvements. remains encephalopathic, on vasopressors, in shock. unlikely to survive. 06/10: no changes, no improvements. palliative met with family and they wish to pursue withdraw of care tomorrow, which is appropriate. remains intubated. Objective Vital Signs Date Time Temp Pulse Resp B/P (MAP) Pulse Ox O2 Delivery O2 Flow Rate FiO2 06/10/17 16:26 100 40 06/10/17 16:00 71 06/10/17 16:00 98.3 15 121/56 (77) 06/10/17 07:00 Mechanical Ventilator 6.00 Intake and Output 06/10/17 06/10/17 06/10/17 07:59 15:59 23:59 Intake Total 496 ml Output Total 0 ml 500 ml Balance 496 ml -500 ml Result Diagram: 06/10/17 0515 06/10/17514 Imaging Last Impressions Chest X-Ray 06/06/17599 Signed Impressions: Service Date/Time: Tuesday, June 06, 2017 02:34 - CONCLUSION: Stable left lung consolidation and right pleural effusion. Dillan Leonard MD Last Impressions Chest X-Ray 06/05/17599 Signed Impressions: Service Date/Time: Monday, June 05, 2017 04:08 - CONCLUSION: Stable right pleural effusion and left lower lung consolidation. Dillan Leonard MD Procedures Current Medications Medications (Trade) Dose Ordered Sig/Jamal Route Start Time Stop Time Status Last Admin (NS Flush) 2 ml UNSCH PRN IVF 06/04/17 17:45 06/04/17 18:06 Miscellaneous Information 1 Q361D XX 06/04/17 20:30 06/04/17 22:15 (Chlorhexidine 2% Cloth) 3 pack Taper DAILY@04 TOP 06/05/17 04:00 06/01/18 03:59 06/05/17 03:04 (Chlorhexidine 2% Cloth) 3 pack UNSCH PRN TOP 06/04/17 20:30 (Zyloprim) 100 mg DAILY PO 06/05/17 09:00 06/07/17 10:42 (Cordarone) 400 mg TIDPC PO 06/05/17 09:30 06/07/17 17:38 (Sensipar) 30 mg DAILY PO 06/05/17 09:00 06/07/17 10:41 (Lanoxin) 0.125 mg Q48H PO 06/04/17 23:00 Future Hold 06/06/17 23:43 (Renvela) 2,400 mg TID PO 06/05/17 09:00 06/07/17 17:39 Sodium Chloride 1,000 ml @ 0 mls/hr Q0M PRN OTHER 06/04/17 22:37 (Heparin Inj) 8,000 units UNSCH PRN IV FLUSH 06/04/17 22:45 Sodium Chloride 1,000 ml @ 200 mls/hr Q5H PRN IV 06/04/17 22:37 Sodium Chloride 1,000 ml @ 0 mls/hr Q0M PRN OTHER 06/04/17 22:37 (Mannitol Inj) 12.5 gm UNSCH PRN IV 06/04/17 22:45 Albumin Human 100 ml @ 60 mls/hr UNSCH PRN IV 06/04/17 22:45 06/08/17 13:38 (NS Flush) 5 ml UNSCH PRN IV FLUSH 06/04/17 22:45 (Heparin Inj) UNSCH PRN .XX 06/04/17 22:45 (Gentamicin Inj) 20 mg UNSCH PRN OTHER 06/04/17 22:45 (Zofran Inj) 4 mg UNSCH PRN IV PUSH 06/04/17 22:45 (Benadryl) 25 mg UNSCH PRN PO 06/04/17 22:45 (Nitrostat Sl) 0.4 mg UNSCH PRN SL 06/04/17 22:45 (Catapres) 0.1 mg UNSCH PRN PO 06/04/17 22:45 (Epogen Inj) 10,000 units UNSCH PRN IV PUSH 06/04/17 22:45 06/08/17 13:38 (Gelfoam 12 Mm/7 Mm Top) 1 foam UNSCH PRN TOP 06/04/17 22:45 06/08/17 13:38 Phenylephrine HCl 160 mg/Dextrose 500 ml @ 7.5 mls/hr TITRATE PRN IV 06/04/17 22:30 06/04/17 23:28 (Brethine Inj) 1 mg UNSCH PRN SQ 06/04/17 22:30 (Bactroban Nasal 2% Oint) 1 applic Taper BID EACH NARE 06/05/17 21:00 06/01/18 20:59 06/07/17 22:08 (Duoneb Neb) 1 ampule Q6HR NEB NEB 06/05/17 22:00 06/08/17 08:20 (Tylenol 650 Mg/ 20 ml Liq) 650 mg Q6H PRN PO 06/05/17 17:00 (D50w (Vial) Inj) 50 ml UNSCH PRN IV PUSH 06/05/17 17:00 (Glucagon Inj) 1 mg UNSCH PRN OTHER 06/05/17 17:00 (NovoLIN R SUPPLEMENTAL SCALE) 1 ACHS SLIDING SCALE SQ 06/05/17 17:00 (Protonix Inj) 40 mg Q24H IV PUSH 06/07/17 14:00 06/07/17 13:53 (Hycet 325-7.5 Mg Liq) 15 ml Q4H PRN PO 06/07/17 15:00 06/07/17 22:08 (L-M-X 4 Cream) 1 applic DAILY TOPICAL 06/07/17 18:00 (Santyl Oint) 1 applic DAILY TOPICAL 06/07/17 18:00 (Coumadin) 1 mg DAILY@16 PO 06/08/17 16:00 Objective Remarks GENERAL: 76-year-old male lying in bed, unresponsive, obtunded, acute respiratory failure HEAD: Atraumatic. Normocephalic. EYES: Pupils equal and round. No scleral icterus. No injection or drainage. ENT: No nasal bleeding or discharge. Mucous membranes dry pale. Extremely poor dentition with one large tooth and lower jaw NECK: Trachea midline. Positive JVD above the level of the mandible CARDIOVASCULAR: Normal rate, irregularly irregular rhythm. There is A. fib by telemetry. Positive systolic murmur right upper sternal border. RESPIRATORY: Labored, using accessory muscles, bag mask assistance. Equal chest rise. GASTROINTESTINAL: Abdomen soft, non-tender, nondistended. no guarding MUSCULOSKELETAL: Left forearm AV fistula. Positive thrill and bruit. NEUROLOGICAL: Obtunded, encephalopathic, very weakly withdraws to pain, does not follow commands. A/P Assessment and Plan Assessment: 76-year-old male with end-stage severe aortic stenosis complicated by poor dentition, sacral decubitus ulcer, coronary artery disease with proximal LAD lesion which is currently unstented, acute GI bleeding. Now he has septic shock and acute respiratory failure. Critically ill. very poor prognosis. now with respiratory failure and septic shock: unlikely to be able to survive long enough to get decubitus and teeth intervened upon, then GI bleeding secured, then BMS to LAD, followed by balloon aortic valvuloplasty, followed by complete TAVR work-up. Much more likely to as an inpatient, or recent future as an outpatient. I have consulted palliative care to assist with goals of care as he is end-stage and unlikely to survive. Remains very critically ill. NEURO/PSYCH: Acute metabolic encephalopathy Chronic pain syndrome with chronic narcotic use Poor dentition Acetaminophen 650 mg p.o. every 6 hours as needed fever Monitor neuro status closely Outpatient dental extraction needs to be followed up on, unfortunately has not been able to be completed. frequent neuro checks fentanyl prn for sedation RESP: Acute hypoxic respiratory failure Acute pulmonary Edema - vent bundle - hob elevated - nebs - likely combination of septic shock with multi-organ failure, pulmonary edema, volume overload. - wean fio2 for goal spo2 >90% - intubated emergently 06/08 CV: Severe aortic stenosis Congestive heart failure/diastolic + valvulopathy Atrial fibrillation Coronary artery disease/80% LAD lesion to 03/21 cardiac catheterization PFO with recent evidence of L-->R shunting. Septic Shock -Hold diltiazem PO 60 mg every 6, -Hold warfarin in light of acute blood loss anemia. Hold aspirin for the same reasons -hold digoxin -Cardiology Dr. Ortiz and Dr. Garcia. Evaluated for PCI/TAVR March/2017. Need his teeth extracted prior to any surgical intervention: unlikely to survive long enough to complete TAVR work-up. too many acute comorbidities. -Dr. Santiago was consulted last admission and recommended OP appointment which is reasonable, now too unstable to complete. - phenylephrine for goal map > 65mmHg. GI: History of C. difficile colitis Acute protein calorie malnutrition- severe -OG tube. - renal tube feeds - dietary consult - very cachectic appearing. likely end-stage cardiac wasting. RENAL/: Chronic kidney disease stage V/end-stage renal disease on hemodialysis Wednesday/ /Wednesday Secondary hyperparathyroidism -End-stage renal disease on hemodialysis Wednesday//Wednesday -Nephrology Dr. Winters -Currently on Cinacalcet at 30 mg p.o. daily for secondary hyperparathyroidism. -Sevelamer carbonate 2400 mg p.o. 3 times daily for hyperphosphatemia ID: MRSA nares positive Septic Shock Decubitus ulcer poor dentition - blood cultures - zosyn - ID consult Mupirocin swabs twice daily HEME: Acute blood loss anemia Anemia of chronic kidney disease Supratherapeutic INR/warfarin toxicity -Receiving K Centra 2000 units in ED -Give 2 units PRBC, 2 units of FFP -Vitamin K 10 mg IV 1 -Monitor CBC, CMP, INR -Holding warfarin and aspirin. Last INR 1.5. Last hemoglobin 8.6 ENDO: Diabetes mellitus Gout Sliding scale insulin with Novulin R with Accu-Cheks before meals/at bedtime maintain euglycemia/medium regimen Continue allopurinol milligrams daily for gout FEN: Replace electrolytes as clinically indicated MSK Cervical myelopathy Moderate lumbar stenosis Previously evaluated by Dr. Fragoso/neurosurgery March/2017. Neurologically intact not requiring intervention at this time. High risk due to underlying cardiac issues. Physical therapy evaluate and treat PROPH: -Bilateral lower extremity SCDs. Hold warfarin/IV pantoprazole infusion, management per Jason Sharif MD Jun 10, 2017 17:48
[2017-06-10] MEDS: WARFARIN SOD 1 MG TAB PO SCH (18:00)
[2017-06-10 18:21] LABS: INTERNATIONAL NORMALIZED RATIO 1.3 RATIO; PROTHROMBIN TIME - PATIENT 12.9 SEC (9.8-11.6)
[2017-06-11] VITALS (11 sets, daily range): BP systolic 98–151; BP diastolic 52–70; PULSE 58–70; RESP 15; TEMP 98.1–98.5; O2SAT 100
[2017-06-11] MEDS: PIPERACIL-TAZO 2.25 GM PREMIX 50 ML IV SCH (03:39)
[2017-06-11] MEDS: MIDAZOLAM 100 MG/100 ML INJ 100 ML IV PRN (03:39)
[2017-06-11] MEDS: CHLORHEXIDINE GLUCONATE 2 % 1 PACK (2 CLOTHS) TOP SCH (03:40)
[2017-06-11] MEDS: RESP: ALBUTEROL 2.5 MG/IPRATROPIUM 0.5 MG NEB (SCH) INH ×2 (04:00→07:20)
[2017-06-11 04:40] LABS: BICARBONATE 31.3 MEQ/L (21.0-32.0); CALCIUM 10.6 MG/DL (8.5-10.1); CREATININE 3.55 MG/DL (0.60-1.30)
[2017-06-11 04:43] LABS: HEMATOCRIT 26.5 % (39.0-51.0); HEMOGLOBIN 8.8 GM/DL (13.0-17.0); MEAN CELL VOLUME 97.9 FL (80.0-100.0); MEAN CORPUSCULAR HEMOGLOBIN 32.7 PG (27.0-34.0); MEAN CORPUSCULAR HGB CONC 33.4 % (32.0-36.0); MEAN PLATELET VOLUME 10.2 FL (7.0-11.0); PLATELET COUNT 171 TH/MM3 (150-450); RED BLOOD COUNT 2.71 MIL/MM3 (4.50-5.90); RED CELL DISTRIBUTION WIDTH 21.1 % (11.6-17.2); WHITE BLOOD COUNT 7.1 TH/MM3 (4.0-11.0)
[2017-06-11] MEDS: INSULIN NovoLIN REGULAR SUPPLEMENTAL SCALE SQ SCH (05:49)
[2017-06-11] MEDS: CHLORHEXIDINE 0.12% (ORAL KIT) 15 ML CUP MT SCH ×2 (07:50→07:51)
[2017-06-11] MEDS: AMIODARONE 200 MG TAB PO SCH ×2 (09:13→13:31)
[2017-06-11] MEDS: ALLOPURINOL 100 MG TAB PO SCH (09:13)
[2017-06-11] MEDS: COLLAGENASE OINT 30 GM TUBE TOPICAL SCH (09:14)
[2017-06-11] MEDS: CINACALCET HYDROCHLORIDE 30 MG TAB PO SCH (09:14)
[2017-06-11] MEDS: SEVELAMER CARBONATE 800 MG TAB PO SCH ×2 (09:14→13:00)
[2017-06-11] MEDS: LIDOCAINE 4% CREAM 5 GM TUBE TOPICAL SCH (09:14)
[2017-06-11] MEDS: MUPIROCIN 2% OINT 1 APPLIC/GM SYR EACH NARE SCH (09:15)
[2017-06-11] MEDS: SODIUM CHLORIDE 0.9% FLUSH 10 ML FLUSH IV FLUSH SCH (09:15)
--- NOTE | 2017-06-11 09:28 | HHI.CCPN ---
Subjective Remarks/Hospital Course Patient is a 76-year-old male with past medical history significant for severe aortic stenosis (peak 94, mean 55, NATA 0.5), recurrent congestive heart failure, coronary artery disease with LAD lesion, hypertension, on dialysis for end-stage renal disease, atrial fibrillation on warfarin, who was sent to the emergency department from [facility] for INR>13 and hemoglobin low. He denied any chest pain or dizziness, further ER workup revealed he had a hemoglobin of 6.5 INR was 13.6. BNP was elevated at 1209. Chest x-ray showed severe pulmonary vascular congestion and bilateral effusions. Patient has severe aortic stenosis, and had been seen by Dr. Ortiz and cardiothoracic surgeon Dr. Nielson before, plan is for PCI and TAVR once stable and prior to that patient needed teeth extracted, and was to follow up as OP with Dr. Santiago. Given GI bleed and anemia patient is receiving 2 units of PRBC , 2 units of FFP already received vitamin K 10 mg IV. I have also ordered Kcentra as he is hemodynamically unstable, and due to end-stage renal disease will not be able to handle multiple units of FFP. Nephrology Dr. Winters had been contacted, due to pulmonary edema patient will get stat hemodialysis and received blood products at the same time I evaluated the patient in the ICU. Patient is just starting to receive Kcentra. Hemodialysis is about the start blood pressure is low systolic blood pressure 65-70. I will start Yosef-Synephrine to maintain map about 65 and to facilitate hemodialysis, transfuse blood products. Patient's prognosis is guarded. He is mildly encephalopathic at this time Subjective 3/3: Currently resting in bed. Vasopressors have been discontinued. GI is cleared for clear liquid diet. Remains mildly encephalopathic. 3/4: Intermittent bouts of confusion. Follows commands, no vasopressors support needed. Diet has been advanced. Currently continues on Protonix infusion per GI management. 06/08: RECONSULT NOTE: We consulted for acute respiratory failure. Patient well- known to the intensive care medicine service with 3 of severe aortic stenosis with a mean gradient of 55 and a peak velocity greater than 4.1 m/s, end stage renal disease, decubitus ulcer, poor dentition, who is very recently been admitted on previous occasions for cardiogenic shock secondary to severe aortic stenosis and rapid ventricular response of his atrial fibrillation. At that time the patient was recommended to undergo complete full mouth dental extraction followed by balloon aortic valvuloplasty, bare-metal stent to the proximal LAD, in early preparation for workup for transcatheter aortic valve replacement. However, the patient never made it to any of these interventions because he began with GI bleeding and an INR of 13 and was admitted on 06/04 4 acute GI bleeding. He was stabilized at that point and eventually transferred to the floor. Today he presents with new onset fever for which infectious disease service was consulted and started empiric Zosyn, with a presumable source of his decubitus ulcer. Despite this, the patient continued to decline and became acutely altered as well as acutely hypoxemic requiring nonrebreather and then bag mask assistance. He was rapid response from the floor and emergently transferred to the ICU where I evaluated the patient. The patient was in acute respiratory failure and required emergent intubation, see separate procedure note for details. No information is available from the patient due to his acute condition. ROS is unobtainable. 06/09: no meaningful improvements. remains encephalopathic, on vasopressors, in shock. unlikely to survive. 06/10: no changes, no improvements. palliative met with family and they wish to pursue withdraw of care tomorrow, which is appropriate. remains intubated. 06/11: Remains sedated, orally intubated on mechanical ventilation. Objective Vital Signs Date Time Temp Pulse Resp B/P (MAP) Pulse Ox O2 Delivery O2 Flow Rate FiO2 06/11/17 08:00 60 06/11/17 08:00 40 06/11/17 07:24 100 06/11/17 07:00 Mechanical Ventilator 6.00 06/11/17 04:00 98.5 15 115/58 (77) Intake and Output 06/11/17 06/11/17 06/12/17 08:00 16:00 00:00 Intake Total 150 ml Balance 150 ml Result Diagram: 06/11/17 0400 06/11/17 0400 Other Results Microbiology Date/Time Source Procedure Growth Status 06/08/17 16:31 Wound Back Gram Stain - Final Complete 06/08/17 16:31 Wound Back Wound Culture - Final Complete Imaging Last Impressions Chest X-Ray 06/06/17 0600 Signed Impressions: Service Date/Time: Tuesday, June 06, 2017 02:34 - CONCLUSION: Stable left lung consolidation and right pleural effusion. Dillan Leonard MD Last Impressions Chest X-Ray 06/05/17 0600 Signed Impressions: Service Date/Time: Monday, June 05, 2017 04:08 - CONCLUSION: Stable right pleural effusion and left lower lung consolidation. Dillan Leonard MD Procedures Current Medications Medications (Trade) Dose Ordered Sig/Jamal Route Start Time Stop Time Status Last Admin (NS Flush) 2 ml UNSCH PRN IVF 06/04/17 17:45 06/04/17 18:06 Miscellaneous Information 1 Q361D XX 06/04/17 20:30 06/04/17 22:15 (Chlorhexidine 2% Cloth) 3 pack Taper DAILY@04 TOP 06/05/17 04:00 06/01/18 03:59 06/05/17 03:04 (Chlorhexidine 2% Cloth) 3 pack UNSCH PRN TOP 06/04/17 20:30 (Zyloprim) 100 mg DAILY PO 06/05/17 09:00 06/07/17 10:42 (Cordarone) 400 mg TIDPC PO 06/05/17 09:30 06/07/17 17:38 (Sensipar) 30 mg DAILY PO 06/05/17 09:00 06/07/17 10:41 (Lanoxin) 0.125 mg Q48H PO 06/04/17 23:00 Future Hold 06/06/17 23:43 (Renvela) 2,400 mg TID PO 06/05/17 09:00 06/07/17 17:39 Sodium Chloride 1,000 ml @ 0 mls/hr Q0M PRN OTHER 06/04/17 22:37 (Heparin Inj) 8,000 units UNSCH PRN IV FLUSH 06/04/17 22:45 Sodium Chloride 1,000 ml @ 200 mls/hr Q5H PRN IV 06/04/17 22:37 Sodium Chloride 1,000 ml @ 0 mls/hr Q0M PRN OTHER 06/04/17 22:37 (Mannitol Inj) 12.5 gm UNSCH PRN IV 06/04/17 22:45 Albumin Human 100 ml @ 60 mls/hr UNSCH PRN IV 06/04/17 22:45 06/08/17 13:38 (NS Flush) 5 ml UNSCH PRN IV FLUSH 06/04/17 22:45 (Heparin Inj) UNSCH PRN .XX 06/04/17 22:45 (Gentamicin Inj) 20 mg UNSCH PRN OTHER 06/04/17 22:45 (Zofran Inj) 4 mg UNSCH PRN IV PUSH 06/04/17 22:45 (Benadryl) 25 mg UNSCH PRN PO 06/04/17 22:45 (Nitrostat Sl) 0.4 mg UNSCH PRN SL 06/04/17 22:45 (Catapres) 0.1 mg UNSCH PRN PO 06/04/17 22:45 (Epogen Inj) 10,000 units UNSCH PRN IV PUSH 06/04/17 22:45 06/08/17 13:38 (Gelfoam 12 Mm/7 Mm Top) 1 foam UNSCH PRN TOP 06/04/17 22:45 06/08/17 13:38 Phenylephrine HCl 160 mg/Dextrose 500 ml @ 7.5 mls/hr TITRATE PRN IV 06/04/17 22:30 06/04/17 23:28 (Brethine Inj) 1 mg UNSCH PRN SQ 06/04/17 22:30 (Bactroban Nasal 2% Oint) 1 applic Taper BID EACH NARE 06/05/17 21:00 06/01/18 20:59 06/07/17 22:08 (Duoneb Neb) 1 ampule Q6HR NEB NEB 06/05/17 22:00 06/08/17 08:20 (Tylenol 650 Mg/ 20 ml Liq) 650 mg Q6H PRN PO 06/05/17 17:00 (D50w (Vial) Inj) 50 ml UNSCH PRN IV PUSH 06/05/17 17:00 (Glucagon Inj) 1 mg UNSCH PRN OTHER 06/05/17 17:00 (NovoLIN R SUPPLEMENTAL SCALE) 1 ACHS SLIDING SCALE SQ 06/05/17 17:00 (Protonix Inj) 40 mg Q24H IV PUSH 06/07/17 14:00 06/07/17 13:53 (Hycet 325-7.5 Mg Liq) 15 ml Q4H PRN PO 3/5/18 15:00 06/07/17 22:08 (L-M-X 4 Cream) 1 applic DAILY TOPICAL 06/07/17 18:00 (Santyl Oint) 1 applic DAILY TOPICAL 06/07/17 18:00 (Coumadin) 1 mg DAILY@16 PO 06/08/17 16:00 Objective Remarks HEENT/ Neuro: Sedated, orally intubated, Pallor present, no icterus, tongue/ mucosa moist. Extremity poor dentition Neck: No JVD Chest/Pulm: on mech vent, good air entry bilaterally, no wheezing or crackles CVS: S1-S2 irregularly irregular, systolic murmur present. GI/abdomen: soft, nontender, bowel sounds sluggish Extremities: warm bilaterally, no edema. Left forearm AV fistula. Positive thrill and bruit A/P Assessment and Plan Assessment: 76-year-old male with end-stage severe aortic stenosis complicated by poor dentition, sacral decubitus ulcer, coronary artery disease with proximal LAD lesion which is currently unstented, acute GI bleeding. Now he has septic shock and acute respiratory failure. Critically ill. very poor prognosis. now with respiratory failure and septic shock: unlikely to be able to survive long enough to get decubitus and teeth intervened upon, then GI bleeding secured, then BMS to LAD, followed by balloon aortic valvuloplasty, followed by complete TAVR work-up. Much more likely to as an inpatient, or recent future as an outpatient. Remains critically ill and being followed by palliative care NEURO/PSYCH: Acute metabolic encephalopathy Chronic pain syndrome with chronic narcotic use Poor dentition Acetaminophen 650 mg p.o. every 6 hours as needed fever Monitor neuro status closely Outpatient dental extraction needs to be followed up on, unfortunately has not been able to be completed. frequent neuro checks fentanyl prn for sedation RESP: Acute hypoxic respiratory failure Acute pulmonary Edema - vent bundle - hob elevated - nebs - likely combination of septic shock with multi-organ failure, pulmonary edema, volume overload. - wean fio2 for goal spo2 >90% - intubated emergently 06/08 CV: Severe aortic stenosis Congestive heart failure/diastolic + valvulopathy Atrial fibrillation Coronary artery disease/80% LAD lesion to 03/21 cardiac catheterization PFO with recent evidence of L-->R shunting. Septic Shock -Hold diltiazem PO 60 mg every 6, -Hold warfarin in light of acute blood loss anemia. Hold aspirin for the same reasons -hold digoxin -Cardiology Dr. Ortiz and Dr. Garcia. Evaluated for PCI/TAVR March/2017. Need his teeth extracted prior to any surgical intervention: unlikely to survive long enough to complete TAVR work-up. too many acute comorbidities. -Dr. Santiago was consulted last admission and recommended OP appointment which is reasonable, now too unstable to complete. - phenylephrine for goal map > 65mmHg. GI: History of C. difficile colitis Acute protein calorie malnutrition- severe -OG tube. - renal tube feeds - dietary consult - very cachectic appearing. likely end-stage cardiac wasting. RENAL/: Chronic kidney disease stage V/end-stage renal disease on hemodialysis Wednesday/ /Wednesday Secondary hyperparathyroidism -End-stage renal disease on hemodialysis Wednesday//Wednesday -Nephrology Dr. Winters -Currently on Cinacalcet at 30 mg p.o. daily for secondary hyperparathyroidism. -Sevelamer carbonate 2400 mg p.o. 3 times daily for hyperphosphatemia ID: MRSA nares positive Septic Shock Decubitus ulcer poor dentition - blood cultures - zosyn - ID consult Mupirocin swabs twice daily HEME: Acute blood loss anemia Anemia of chronic kidney disease Supratherapeutic INR/warfarin toxicity -Receiving K Centra 2000 units in ED -Give 2 units PRBC, 2 units of FFP -Vitamin K 10 mg IV 1 -Monitor CBC, CMP, INR -Holding warfarin and aspirin. Last INR 1.5. Last hemoglobin 8.6 ENDO: Diabetes mellitus Gout Sliding scale insulin with Novulin R with Accu-Cheks before meals/at bedtime maintain euglycemia/medium regimen Continue allopurinol milligrams daily for gout FEN: Replace electrolytes as clinically indicated MSK Cervical myelopathy Moderate lumbar stenosis Previously evaluated by Dr. Fragoso/neurosurgery March/2017. Neurologically intact not requiring intervention at this time. High risk due to underlying cardiac issues. Physical therapy evaluate and treat PROPH: -Bilateral lower extremity SCDs. Hold warfarin/IV pantoprazole infusion Family in discussions with palliative care service. Plan for possible terminal wean with transition to comfort measures on 06/11. Time spent on critical care excluding procedures 30 minutes Gerhard Ralph MD Jun 11, 2017 09:28
--- NOTE | 2017-06-11 09:34 | HHI.NPPN ---
Subjective General Problems: Anemia Renal Failure: End Stage Renal Disease History of Present Illness Patient is a 76-year-old male with past medical history significant for severe aortic stenosis (peak 94, mean 55, NATA 0.5), recurrent congestive heart failure, coronary artery disease with LAD lesion, hypertension, on dialysis for end-stage renal disease, atrial fibrillation on warfarin, who was sent to the emergency department from [facility] for INR>13 and hemoglobin low. He denied any chest pain or dizziness, further ER workup revealed he had a hemoglobin of 6.5 INR was 13.6. BNP was elevated at 1209. Chest x-ray showed severe pulmonary vascular congestion and bilateral effusions. Patient has severe aortic stenosis, and had been seen by Dr. Ortiz and cardiothoracic surgeon Dr. Nielson before, plan is for PCI and TAVR once stable and prior to that patient needed teeth extracted, and was to follow up as OP with Dr. Santiago. I was notified of patient's clinical situation by ER Nurse practitioner. Because of pulmonary edema and need for blood products emergency dialysis was arranged and carried out last night. He has received 2 units of PRBC and 2 units of FFP. Also has received Vitamin K and Kcintra. This morning he is extremely lethargic and unable to provide any history Additional Remarks Patient sedated on ventilator (Prachi Huitron) Review of Systems General Constitutional: Fatigue General Remarks Intubated and sedated (Prachi Huitron) Objective Data Data Vital Signs Date Time Temp Pulse Resp B/P (MAP) Pulse Ox O2 Delivery O2 Flow Rate FiO2 06/11/17 08:00 60 06/11/17 08:00 40 06/11/17 07:24 100 40 06/11/17 07:00 100 Mechanical Ventilator 6.00 40 06/11/17 06:00 58 06/11/17 04:00 62 06/11/17 04:00 98.5 62 15 115/58 (77) 100 06/11/17 04:00 40 06/11/17 02:00 60 06/11/17 00:02 100 40 06/11/17 00:00 40 06/11/17 00:00 98.1 62 15 98/52 (67) 100 06/11/17 00:00 62 06/10/17 22:00 62 06/10/17 20:50 100 40 06/10/17 20:00 66 06/10/17 20:00 100.0 78 15 100/50 (67) 100 06/10/17 20:00 40 06/10/17 19:00 100 Mechanical Ventilator 6.00 40 06/10/17 18:00 73 06/10/17 16:26 100 40 06/10/17 16:00 71 06/10/17 16:00 40 06/10/17 16:00 98.3 78 15 121/56 (77) 100 06/10/17 15:34 71 06/10/17 14:00 67 06/10/17 12:00 97.9 68 17 159/69 (99) 97 06/10/17 12:00 40 06/10/17 12:00 68 06/10/17 11:38 100 40 06/10/17 10:00 76 (Prachi Huitron) -: 06/11/17 0400 06/11/17 0400 Physical Exam General Appearance: Malnourished (Prachi Huitron) Eyes Eye Exam: Pupils Equal (Prachi Huitron) Neck Neck Exam: Neck Supple (Prachi Huitron) Pulmonary Resp Exam: No Distress (Prachi Huitron) Cardiology CV Exam: Irregular, Murmur (Prachi Huitron) Gastrointestinal/Abdomen GI Exam: Soft, Non-Tender, Bowel Sounds Present (Prachi Huitron) Extremeties Extremities Exam: No Edema (Prachi Huitron) Assessment/Plan Problem List: (1) ESRD (end stage renal disease) on dialysis ICD Codes: N18.6 - End stage renal disease; Z99.2 - Dependence on renal dialysis Plan: Dialyzes TTS Plan HD done yesterday with 500ml removed Possible withdrawal today as per family. (2) Coagulopathy ICD Codes: D68.9 - Coagulation defect, unspecified Plan: Given FFP, Vitamin K, Kcentra. Improved. (3) Anemia ICD Codes: D64.9 - Anemia Status: Acute Plan: blood loss anemia, in the context of GI bleeding and coagulopathy. Hemoglobin has improved with blood transfusion. (4) Severe aortic valve stenosis ICD Codes: I35.0 - Nonrheumatic aortic (valve) stenosis Plan: need for surgical therapy (TAVR). Prognosis is very poor. (5) Atrial fibrillation ICD Codes: I48.91 - Unspecified atrial fibrillation Plan: He is on amiodarone. Was on Coumadin. (6) Pulmonary edema ICD Codes: J81.1 - Chronic pulmonary edema Status: Acute Plan: On O2 at 2 liters (Prachi Huitron) Problem List: (1) ESRD (end stage renal disease) on dialysis ICD Codes: N18.6 - End stage renal disease; Z99.2 - Dependence on renal dialysis Plan: Dialyzes TTS Plan HD done yesterday with 500ml removed Possible withdrawal today as per family. Patient now extubated and with the family. I will sign off from Nephrology. (2) Coagulopathy ICD Codes: D68.9 - Coagulation defect, unspecified Plan: Given FFP, Vitamin K, Kcentra. Improved. (3) Anemia ICD Codes: D64.9 - Anemia Status: Acute Plan: blood loss anemia, in the context of GI bleeding and coagulopathy. Hemoglobin has improved with blood transfusion. (4) Severe aortic valve stenosis ICD Codes: I35.0 - Nonrheumatic aortic (valve) stenosis Plan: need for surgical therapy (TAVR). Prognosis is very poor. (5) Atrial fibrillation ICD Codes: I48.91 - Unspecified atrial fibrillation Plan: He is on amiodarone. Was on Coumadin. (6) Pulmonary edema ICD Codes: J81.1 - Chronic pulmonary edema Status: Acute Plan: On O2 at 2 liters (Quiana Mayers MD) Problem Qualifiers (1) Anemia: Qualified Codes: D64.9 - Anemia, unspecified (2) Pulmonary edema: Qualified Codes: J81.0 - Acute pulmonary edema Prachi Huitron Jun 11, 2017 09:34 Quiana Mayers MD Jun 11, 2017 15:40
[2017-06-11] MEDS: PANTOPRAZOLE SODIUM 40 MG VIAL IV PUSH SCH (13:32)
[2017-06-11] MEDS ORDERED: LORazepam 2 MG/ML VIAL IV PUSH ONE ×2 (14:30→14:45)
[2017-06-11] MEDS ORDERED: HYOSCYAMINE 0.5 MG/ML AMP IV PUSH ONE (14:30)
[2017-06-11] MEDS ORDERED: HYDROmorphone HCL PF 2 MG/ML VIAL IV PUSH ONE ×2 (14:30→14:45)
--- NOTE | 2017-06-11 14:37 | HHI.HCPN ---
Reason for visit a. To assist with evaluation and management of symptoms including: dyspnea, pain. b. To assist medical decision maker(s) with: better understanding of current medical conditions; weighing benefits/burdens of medical treatment options; making medical treatment decisions. . Subjective/Interval History Palliative care follow-up for further clarification of goals of care. Patient seen in surgical ICU, Alvaro Reyes and Terrell at bedside. Patient intubated on mechanical ventilation, currently on 40% FiO2. Not sedated. Unresponsive to verbal or tactile stimuli. Continue requiring vasopressor, SBP in the 80s. Laboratory workup today revealed WBC 7.1, Hgb 8.8, platelet count 171. BUN/creatinine 37/3.55. Underwent hemodialysis yesterday removing 500 mL. Most recent chest x-ray 06/09 revealing bilateral pleural effusion with associated volume loss and/or airspace consolidation. Case discussed with bedside RN. Met with patient's family to include Alvaro Reyes and Terrell as well as Herb's Renita. Rojas Estevez is healthcare surrogate decision maker. Medical update provided. Family has elected to transition patient to comfort- Dr. caregiving very poor prognosis, worsening clinical condition and patient known wishes as is stated in his living will. All 3 children in agreement. Anticipatory guidance provided. Family appropriately tearful, ongoing emotional support and active listening provided. . Family/friend interactions See interval note. . Advance Directives Living Will: Copy in medical record Health Care Surrogate: Copy in medical record Durable Power of Esol Teacher: Copy in medical record Advance Directive Specifics Date completed: 04/12/2017. . Health Care Surrogate(s): Patient is not capacitated to make his own healthcare decisions, will not regain capacity. According to written Durable Power of Esol Teacher for healthcare and living will Elier alonzo is designated healthcare surrogate. . Significant change in goals: Comfort directed care, withdrawal of life support. Objective Vital Signs Date Time Temp Pulse Resp B/P (MAP) Pulse Ox O2 Delivery O2 Flow Rate FiO2 06/11/17 12:59 100 40 06/11/17 12:00 98.3 63 15 137/70 (92) 100 06/11/17 12:00 64 06/11/17 12:00 40 06/11/17 10:00 60 06/11/17 08:00 60 06/11/17 08:00 98.4 62 15 151/67 (95) 100 06/11/17 08:00 40 06/11/17 07:24 100 40 06/11/17 07:00 100 Mechanical Ventilator 6.00 40 06/11/17 06:00 58 06/11/17 04:00 62 06/11/17 04:00 98.5 62 15 115/58 (77) 100 06/11/17 04:00 40 06/11/17 02:00 60 06/11/17 00:02 100 40 06/11/17 00:00 40 06/11/17 00:00 98.1 62 15 98/52 (67) 100 06/11/17 00:00 62 06/10/17 22:00 62 06/10/17 20:50 100 40 06/10/17 20:00 66 06/10/17 20:00 100.0 78 15 100/50 (67) 100 06/10/17 20:00 40 06/10/17 19:00 100 Mechanical Ventilator 6.00 40 06/10/17 18:00 73 06/10/17 16:26 100 40 06/10/17 16:00 71 06/10/17 16:00 40 06/10/17 16:00 98.3 78 15 121/56 (77) 100 06/10/17 15:34 71 Intake & Output 06/11/17 06/11/17 06:59 18:59 Intake Total 150 ml Balance 150 ml IV Total 150 ml # Bowel Movements 1 Physical Exam CONSTITUTIONAL/GENERAL: This is an elderly, cachectic, critically ill patient on mechanical ventilation. TUBES/LINES/DRAINS: ETT, OG, PIVs, bilateral soft wrist restraints, SCDs, Hernandez , AV fistula. SKIN: No jaundice, rashes, or lesions. Ecchymoses and skin tears on upper extremities. Sacral decubitus, not visualized during my visit today. Skin temperature appropriate. Not diaphoretic. HEAD: Bilateral temporal wasting. Atraumatic. Normocephalic. EYES: eyes closed. ENT: Unable to assess hearing. Nose without bleeding or purulent drainage. Poor dentition, difficult to visualize throat secondary to tubes. NECK: Trachea midline. CARDIOVASCULAR: Irregularly, irregular. Atrial fibrillation by telemetry. Systolic murmur noted. RESPIRATORY/CHEST: Scattered coarse breath sounds. GASTROINTESTINAL: Abdomen soft, nondistended. No guarding. Bowel sounds present. GENITOURINARY: Without palpable bladder distension. Hernandez catheter in place. MUSCULOSKELETAL: AV fistula positive bruit and thrill. No mottling or clubbing. LYMPHATICS: No palpable cervical or supraclavicular adenopathy. NEUROLOGICAL: Unresponsive to verbal or tactile stimuli. . Diagnostic Tests Laboratory Laboratory Tests Test 06/08/17 18:30 06/08/17 19:49 06/08/17 23:58 06/09/17 05:02 Blood Gas Puncture Site RT BRACHIAL Blood Gas Patient Temperature 98.6 Blood Gas HCO3 28 mmol/L (22-26) Blood Gas Base Excess 3.2 mmol/L (-2-2) Blood Gas Oxygen Saturation 97 % (90-100) Arterial Blood pH 7.36 (7.380-7.420) Arterial Blood Partial Pressure CO2 52 mmHg (38-42) Arterial Blood Partial Pressure O2 332 mmHg (61-120) Arterial Blood Oxygen Content 11.7 Vol % (12.0-20.0) Arterial Blood Carboxyhemoglobin 2.6 % (0-4) Arterial Blood Methemoglobin 0.8 % (0-2) Blood Gas Hemoglobin 8.0 G/DL (12.0-16.0) Oxygen Delivery Device VENTILATOR Blood Gas Ventilator Setting PRVC/AC Blood Gas Inspired Oxygen 100 % Lactic Acid Level 3.1 mmol/L (0.4-2.0) 1.5 mmol/L (0.4-2.0) White Blood Count 9.8 TH/MM3 (4.0-11.0) Red Blood Count 2.70 MIL/MM3 (4.50-5.90) Hemoglobin 9.0 GM/DL (13.0-17.0) Hematocrit 26.5 % (39.0-51.0) Mean Corpuscular Volume 98.0 FL (80.0-100.0) Mean Corpuscular Hemoglobin 33.1 PG (27.0-34.0) Mean Corpuscular Hemoglobin Concent 33.8 % (32.0-36.0) Red Cell Distribution Width 20.9 % (11.6-17.2) Platelet Count 197 TH/MM3 (150-450) Mean Platelet Volume 9.5 FL (7.0-11.0) Neutrophils (%) (Auto) 83.0 % (16.0-70.0) Lymphocytes (%) (Auto) 6.4 % (9.0-44.0) Monocytes (%) (Auto) 10.0 % (0.0-8.0) Eosinophils (%) (Auto) 0.4 % (0.0-4.0) Basophils (%) (Auto) 0.2 % (0.0-2.0) Neutrophils # (Auto) 8.1 TH/MM3 (1.8-7.7) Lymphocytes # (Auto) 0.6 TH/MM3 (1.0-4.8) Monocytes # (Auto) 1.0 TH/MM3 (0-0.9) Eosinophils # (Auto) 0.0 TH/MM3 (0-0.4) Basophils # (Auto) 0.0 TH/MM3 (0-0.2) CBC Comment DIFF FINAL Differential Comment Blood Urea Nitrogen 47 MG/DL (7-18) Creatinine 4.25 MG/DL (0.60-1.30) Random Glucose 88 MG/DL (74-106) Total Protein 6.3 GM/DL (6.4-8.2) Albumin 3.5 GM/DL (3.4-5.0) Calcium Level 10.2 MG/DL (8.5-10.1) Phosphorus Level 2.8 MG/DL (2.5-4.9) Magnesium Level 2.4 MG/DL (1.5-2.5) Alkaline Phosphatase 75 U/L (45-117) Aspartate Amino Transf (AST/SGOT) 30 U/L (15-37) Alanine Aminotransferase (ALT/SGPT) 28 U/L (12-78) Total Bilirubin 1.5 MG/DL (0.2-1.0) Sodium Level 143 MEQ/L (136-145) Potassium Level 3.7 MEQ/L (3.5-5.1) Chloride Level 103 MEQ/L (98-107) Carbon Dioxide Level 29.4 MEQ/L (21.0-32.0) Anion Gap 11 MEQ/L (5-15) Estimat Glomerular Filtration Rate 14 ML/MIN (>89) Test 06/10/17 05:15 06/10/17 17:30 06/11/17 04:00 White Blood Count 7.4 TH/MM3 (4.0-11.0) 7.1 TH/MM3 (4.0-11.0) Red Blood Count 3.09 MIL/MM3 (4.50-5.90) 2.71 MIL/MM3 (4.50-5.90) Hemoglobin 10.0 GM/DL (13.0-17.0) 8.8 GM/DL (13.0-17.0) Hematocrit 30.4 % (39.0-51.0) 26.5 % (39.0-51.0) Mean Corpuscular Volume 98.5 FL (80.0-100.0) 97.9 FL (80.0-100.0) Mean Corpuscular Hemoglobin 32.4 PG (27.0-34.0) 32.7 PG (27.0-34.0) Mean Corpuscular Hemoglobin Concent 32.9 % (32.0-36.0) 33.4 % (32.0-36.0) Red Cell Distribution Width 20.7 % (11.6-17.2) 21.1 % (11.6-17.2) Platelet Count 224 TH/MM3 (150-450) 171 TH/MM3 (150-450) Mean Platelet Volume 9.9 FL (7.0-11.0) 10.2 FL (7.0-11.0) Blood Urea Nitrogen 58 MG/DL (7-18) 37 MG/DL (7-18) Creatinine 4.99 MG/DL (0.60-1.30) 3.55 MG/DL (0.60-1.30) Random Glucose 101 MG/DL (74-106) 112 MG/DL (74-106) Calcium Level 10.7 MG/DL (8.5-10.1) 10.6 MG/DL (8.5-10.1) Sodium Level 141 MEQ/L (136-145) 143 MEQ/L (136-145) Potassium Level 3.7 MEQ/L (3.5-5.1) 3.5 MEQ/L (3.5-5.1) Chloride Level 103 MEQ/L (98-107) 104 MEQ/L (98-107) Carbon Dioxide Level 29.5 MEQ/L (21.0-32.0) 31.3 MEQ/L (21.0-32.0) Anion Gap 9 MEQ/L (5-15) 8 MEQ/L (5-15) Estimat Glomerular Filtration Rate 11 ML/MIN (>89) 17 ML/MIN (>89) Prothrombin Time 12.9 SEC (9.8-11.6) Prothromb Time International Ratio 1.3 RATIO Result Diagram: 06/11/170 06/11/170 Microbiology Microbiology Date/Time Source Procedure Growth Status 06/08/17 15:56 Blood Peripheral Aerobic Blood Culture - Preliminary NO GROWTH IN 3 DAYS Resulted 06/08/17 15:56 Blood Peripheral Anaerobic Blood Culture - Preliminary NO GROWTH IN 3 DAYS Resulted 06/08/17 15:51 Blood Peripheral Aerobic Blood Culture - Preliminary NO GROWTH IN 3 DAYS Resulted 06/08/17 15:51 Blood Peripheral Anaerobic Blood Culture - Preliminary NO GROWTH IN 3 DAYS Resulted 06/08/17 16:31 Wound Back Gram Stain - Final Complete 06/08/17 16:31 Wound Back Wound Culture - Final Complete Procedures * 06/09/17 - left IJ central line placement * 06/08/17 - intubation . Assessment and Plan Disease Oriented Problem List: (1) Acute exacerbation of CHF (congestive heart failure) (2) Severe aortic valve stenosis (3) Atrial fibrillation (4) Coagulopathy (5) DM2 (diabetes mellitus, type 2) (6) End stage renal disease on dialysis (7) CAD (coronary artery disease) (8) Hypotension (9) GI bleed (10) Pulmonary edema (11) Anemia Symptom Scale: (1) Dyspnea 0-10 Scale: Unable to quantify Comment: on mech vent (2) Pain 0-10 Scale: Unable to quantify Comment: on Fentanyl drip. . Pertinent Non-Medical Issues Psychosocial: Single. Has 3 sons. 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 Legal: Decision Maker: Patient is not capacitated to make his own healthcare decisions, will not regain capacity. Family indicates sonElier is designated healthcare surrogate. Paperwork requested, will bring at next visit. Ethical issues impacting care: No known concerns at this time. . Important Contacts * Elier Young, son: [phone] * Terrell Young, son: [phone] . Prognosis Not expected to survive this hospitalization given advanced age, recent trajectory of decline, multiple medical comorbidities including ESRD on HD and severe aortic stenosis, not a candidate for surgical intervention, respiratory failure and shock. Patient has terminal and end stage illness. . Code Status: No Code Plan * Decision Maker: Patient is not capacitated to make his own healthcare decisions, will not regain capacity. According to written Durable Power of Esol Teacher for healthcare and living will son, Herb Young is designated healthcare surrogate. Son has accepted this role and is fully supported by 2 additional siblings. * NO CODE * GOALS OF CARE: Patient's son Herb Young acting as healthcare surrogate decision maker and fully supported by 2 additional brothers Alvaro and Terrell reports that family has elected to proceed with transition to comfort-directed care measures with withdrawal of life support today. * Anticipatory guidance provided. * Exhibits B & C on chart, signed by Dr. Hahn and Dr. Metzger. * ruling machine feeder requested for visit prior to withdrawal of life support. * SYMPTOMS: Comfort medications for management of pain, shortness of breath and anxiety added. . Time Spent Total Floor Time (mins): 44 (Total time to include review medical records, physical exam, goals of care conversation with patient's family, case discussion with bedside RN.) >50% Counseling/Coord of Care: Yes Attestation To help prompt me to consider important information that might be impacting today's encounter and assessment, information from prior notes written by myself or my colleagues may have been "brought forward" into today's note. My signature on this note, however, is an attestation that I personally performed the exam, history, and/or decision-making noted today, and, unless otherwise indicated, the interactions with patient, family, and staff as well as the review of records all occurred today. I also attest that the listed assessment and stated plan reflect my best clinical judgment today based on the combination of historical information, prior notes, and today's exam/ interactions. When time spent is documented, it refers only to time spent today by the signer, or if indicated, combined time spent today by collaborating physician/nurse practitioner. An Barriga Jun 11, 2017 14:37
[2017-06-11] MEDS ORDERED: HYOSCYAMINE 0.5 MG/ML AMP IV PUSH PRN (15:00)
[2017-06-11] MEDS ORDERED: BISACODYL 10 MG SUPP RECTAL PRN (15:00)
[2017-06-11] MEDS ORDERED: HYDROmorphone HCL PF 2 MG/ML VIAL IV PUSH PRN ×2 (15:00)
[2017-06-11] MEDS ORDERED: FUROSEMIDE 20 MG/2 ML VIAL IV PUSH PRN (15:00)
[2017-06-11] MEDS ORDERED: LORazepam 2 MG/ML VIAL IV PUSH PRN ×3 (15:00)
[2017-06-11] MEDS ORDERED: LORazepam 2 MG/ML VIAL IV PUSH SCH (16:00)
[2017-06-11] MEDS ORDERED: HYDROmorphone HCL PF 2 MG/ML VIAL IV PUSH SCH (16:00)
== END 2017-06-11 18:34 | disposition expired | DRG 871 ==
LOC: NEPC 15:40 → NEDA 20:07 → HIMW 22:00 → N05B 06-06 21:40 → N03B 06-08 18:11
PROVIDERS: ADMIT Internal Medicine Critical Care Medicine; ATTEND Internal Medicine Critical Care Medicine
PROC: 30233N1 Transfusion of Nonautologous Red Blood Cells into Peripheral Vein, Percutaneous Approach (ICD-10-PCS; principal; 2017-06-04)
PROC: 30233K1 Transfusion of Nonautologous Frozen Plasma into Peripheral Vein, Percutaneous Approach (ICD-10-PCS; 2017-06-04)
PROC: 5A1D70Z Performance of Urinary Filtration, Intermittent, Less than 6 Hours Per Day (ICD-10-PCS; 2017-06-04)
PROC: 5A1945Z Respiratory Ventilation, 24-96 Consecutive Hours (ICD-10-PCS; 2017-06-08)
PROC: 0BH17EZ Insertion of Endotracheal Airway into Trachea, Via Natural or Artificial Opening (ICD-10-PCS; 2017-06-08)
PROC: 02HV33Z Insertion of Infusion Device into Superior Vena Cava, Percutaneous Approach (ICD-10-PCS; 2017-06-09)
DX: A41.9 Sepsis, unspecified organism (principal); R65.21 Severe sepsis with septic shock; J96.01 Acute respiratory failure with hypoxia; E43 Unspecified severe protein-calorie malnutrition; I50.33 Acute on chronic diastolic (congestive) heart failure; G93.41 Metabolic encephalopathy; L89.150 Pressure ulcer of sacral region, unstageable; N18.6 End stage renal disease; D68.9 Coagulation defect, unspecified; R64 Cachexia; I13.2 Hypertensive heart and chronic kidney disease with heart failure and with stage 5 chronic kidney disease, or end stage renal disease; K92.2 Gastrointestinal hemorrhage, unspecified; D62 Acute posthemorrhagic anemia; G95.9 Disease of spinal cord, unspecified; N25.81 Secondary hyperparathyroidism of renal origin; Q21.1 Atrial septal defect; L89.310 Pressure ulcer of right buttock, unstageable; I48.2 Chronic atrial fibrillation; L89.320 Pressure ulcer of left buttock, unstageable; E11.22 Type 2 diabetes mellitus with diabetic chronic kidney disease; M19.90 Unspecified osteoarthritis, unspecified site; M10.9 Gout, unspecified; D50.0 Iron deficiency anemia secondary to blood loss (chronic); D63.1 Anemia in chronic kidney disease; I25.10 Atherosclerotic heart disease of native coronary artery without angina pectoris; I35.0 Nonrheumatic aortic (valve) stenosis; H91.90 Unspecified hearing loss, unspecified ear; K57.90 Diverticulosis of intestine, part unspecified, without perforation or abscess without bleeding; E78.5 Hyperlipidemia, unspecified; Z51.5 Encounter for palliative care; M48.061 Spinal stenosis, lumbar region without neurogenic claudication; E83.39 Other disorders of phosphorus metabolism; G89.4 Chronic pain syndrome; Z79.891 Long term (current) use of opiate analgesic; Z86.19 Personal history of other infectious and parasitic diseases; Z85.828 Personal history of other malignant neoplasm of skin; Z99.2 Dependence on renal dialysis; Z79.01 Long term (current) use of anticoagulants
CPT/HCPCS: 31500; 36430; 36556; 36600; 71045; 80048; 80053; 80061; 80069; 80162; 82140; 82150; 82533; 82805; 82948; 83605; 83690; 83735; 83880; 84100; 84443; 84484; 85014; 85018; 85025; 85027; 85384; 85610; 85730; 86850; 86900; 86901; 86920; 86927; 87040; 87070; 87205; 87641; 90935; 93005; 94002; 94003; 94150; 94640; 94664; 96374; 96375; 99291; C9113; C9132; J1170; J1980; J2060; J2250; J2370; J2543; J3010; J3430; J7050; J7060; P9016; P9017; P9047; Q4081